=== PATIENT | male | born 1950 | race Caucasian/White ===

== ENCOUNTER 2018-12-24 04:15 | Inpatient (IN) | payer MEDICARE ==
[2018-12-24 05:01] LABS: INR 1.2 (<1.2); Partial Thromboplastin Time 28.5 sec (22.0-30.0); Prothrombin Time 12.2 sec (9.0-12.0)
[2018-12-24 05:03] LABS: Anisocytosis Slight; Basophils % (A) 0 %; Eosinophils # (A) 0.2 k/uL (0-0.7); Eosinophils % (A) 1 %; HCT 22.3 % (39.0-53.0); Hypochromasia Slight; Lymphocytes # (A) 2.6 k/uL (1.0-4.8); Lymphocytes % (A) 18 %; MCH 30.4 pg (25.0-35.0); MCHC 31.2 g/dL (31.0-37.0); MCV 97.6 fL (80.0-100.0); Macrocytosis Slight; Mean Platelet Volume 7.3; Monocytes % (A) 7 %; Neutrophils # (A) 10.3 k/uL (1.3-7.7); Neutrophils % (A) 72 %; Platelet Count 707 k/uL (150-450); RBC 2.29 m/uL (4.30-5.90); RDW 16.3 % (11.5-15.5); WBC 14.4 k/uL (3.8-10.6)
[2018-12-24 05:04] LABS: Albumin 2.3 g/dL (3.5-5.0); Calcium 8.7 mg/dL (8.4-10.2); Total Bilirubin 0.3 mg/dL (0.2-1.3); Total Protein 6.8 g/dL (6.3-8.2)
[2018-12-24 05:06] LABS: Potassium 7.4 mmol/L (3.5-5.1)
[2018-12-24] MEDS ORDERED: CALCIUM GLUCONATE 1 GM in SODIUM CHLORIDE 0.9% 100 ML IVPB ONE (05:17)
[2018-12-24] MEDS ORDERED: SODIUM BICARB 8.4% 50 ML SYR (1 MEQ/ML) IV STA (05:17)
[2018-12-24] MEDS ORDERED: INSULIN REGULAR 100 UNIT/ML VIAL IV STA (05:17)
[2018-12-24] MEDS ORDERED: DEXTROSE 50% SYRINGE 50 ML IVP STA (05:17)
--- NOTE | 2018-12-24 05:17 | ED ---
Weakness HPI - General Chief complaint: Shortness of Breath Stated complaint: SOB Time Seen by Provider: 12/24/18 04:22 Source: patient Mode of arrival: EMS Limitations: altered mental status - History of Present Illness Initial comments: This patient is 68-year-old man who is transferred here from rehab facility. The patient states that he is here because he is feeling more rundown, having increase in generalized weakness. He is not able to characterize his symptoms well. He is denying pain anywhere. Patient states also that he feels like his breathing is not 100% normal. At the [facility] [place] the patient is found to have anemia with a hemoglobin 6.3 and therefore transferred here. MD Complaint: generalized weakness -: unknown Location: generalized Consistency: constant Improves with: none Worsens with: none - Related Data Allergies Allergy/AdvReac Type Severity Reaction Status Date / Time No Known Allergies Allergy Verified 12/24/18 08:05 Review of Systems ROS Statement: Those systems with pertinent positive or pertinent negative responses have been documented in the HPI. ROS Other: All systems not noted in ROS Statement are negative. Limitations: ROS unobtainable due to patients medical condition Respiratory: Reports: dyspnea. Denies: cough, wheezes Cardiovascular: Denies: chest pain, palpitations, syncope Gastrointestinal: Denies: abdominal pain, vomiting, diarrhea Musculoskeletal: Denies: back pain Neurological: Reports: weakness. Denies: headache Past Medical History Past Medical History: Atrial Fibrillation, Heart Failure, Hyperlipidemia, Hypertension, Renal Disease, Syncope Additional Past Medical History / Comment(s): anemia, UTI, Hypothyroid, depression, dysphagia History of Any Multi-Drug Resistant Organisms: None Reported Additional Past Surgical History / Comment(s): unknown Past Psychological History: No Psychological Hx Reported Smoking Status: Former smoker Past Alcohol Use History: None Reported Past Drug Use History: None Reported General Exam General appearance: alert, in no apparent distress Head exam: Present: atraumatic, normocephalic Eye exam: Present: normal appearance. Absent: scleral icterus, conjunctival injection Respiratory exam: Present: normal lung sounds bilaterally. Absent: respiratory distress, wheezes, rales, rhonchi, stridor, accessory muscle use Cardiovascular Exam: Present: regular rate, normal rhythm, normal heart sounds. Absent: systolic murmur, diastolic murmur, rubs, gallop GI/Abdominal exam: Present: soft. Absent: distended, tenderness, guarding, rebound Extremities exam: Present: normal capillary refill, pedal edema (he does have mild increase in left leg edema versus right). Absent: calf tenderness Neurological exam: Present: alert Skin exam: Present: warm, dry, intact, normal color. Absent: rash Course Vital Signs 12/24/18 12/24/18 12/24/18 04:20 04:27 04:30 Temperature 98.1 F 98.8 F Pulse Rate 78 105 H Respiratory 20 20 Rate Blood Pressure 138/85 138/85 O2 Sat by Pulse 100 89 L Oximetry 12/24/18 12/24/18 12/24/18 05:00 06:00 06:10 Temperature 98.0 F Pulse Rate 78 111 H 82 Respiratory 18 17 18 Rate Blood Pressure 138/85 151/69 145/80 O2 Sat by Pulse 100 98 100 Oximetry 12/24/18 12/24/18 12/24/18 06:20 07:00 07:30 Temperature Pulse Rate 81 72 72 Respiratory 17 14 11 L Rate Blood Pressure 129/66 146/61 133/68 O2 Sat by Pulse 100 98 98 Oximetry 12/24/18 08:00 Temperature Pulse Rate 60 Respiratory 15 Rate Blood Pressure 115/61 O2 Sat by Pulse 97 Oximetry EKG Findings - EKG Results: EKG: interpreted by ERMD, sinus rhythm (Rate 87 bpm), normal axis, normal QRS - Blocks, [place], Hypertrophy, ST Abn: Repolarization changes or abnormalities: nonspecific abnormality, ST segment, and/or T wave Medical Decision Making - Medical Decision Making Patient's 68-year-old man sent here from rehab facility as he was feeling worsening generalized weakness and also having dyspnea. Generalized weakness appears to be related to hyperkalemia, which is started on the hyperkalemia cocktail, and patient will have nephrology consultation. Dyspnea appears multifactorial probably with element of CHF/mild pulmonary edema and also anemia. Patient will be transfused. In addition to the nephrology consultation patient will have hematology consultation. Unfortunately no old labs related to kidney function or baseline BNP for comparison. Case D/W admitting physician by Dr. Block. - Lab Data Result diagrams: 12/24/18 04:35 12/24/18 04:35 Lab Results 12/24/18 12/24/18 12/24/18 Range/Units 04:35 04:35 04:35 WBC 14.4 H (3.8-10.6) k/uL RBC 2.29 L (4.30-5.90) m/uL Hgb 7.0 L (13.0-17.5) gm/dL Hct 22.3 L (39.0-53.0) % MCV 97.6 (80.0-100.0) fL MCH 30.4 (25.0-35.0) pg MCHC 31.2 (31.0-37.0) g/dL RDW 16.3 H (11.5-15.5) % Plt Count 707 H (150-450) k/uL Neutrophils % 72 % Lymphocytes % 18 % Monocytes % 7 % Eosinophils % 1 % Basophils % 0 % Neutrophils # 10.3 H (1.3-7.7) k/uL Lymphocytes # 2.6 (1.0-4.8) k/uL Monocytes # 1.0 (0-1.0) k/uL Eosinophils # 0.2 (0-0.7) k/uL Basophils # 0.0 (0-0.2) k/uL Hypochromasia Slight Anisocytosis Slight Macrocytosis Slight PT (9.0-12.0) sec INR (<1.2) APTT (22.0-30.0) sec Sodium 137 (137-145) mmol/L Potassium 7.4 H* (3.5-5.1) mmol/L Chloride 109 H (98-107) mmol/L Carbon Dioxide 21 L (22-30) mmol/L Anion Gap 7 mmol/L BUN 46 H (9-20) mg/dL Creatinine 3.05 H (0.66-1.25) mg/dL Est GFR (CKD-EPI)AfAm 23 (>60 ml/min/1.73 sqM) Est GFR (CKD-EPI)NonAf 20 (>60 ml/min/1.73 sqM) Glucose 89 (74-99) mg/dL Calcium 8.7 (8.4-10.2) mg/dL Total Bilirubin 0.3 (0.2-1.3) mg/dL AST 47 (17-59) U/L ALT 29 (21-72) U/L Alkaline Phosphatase 121 (38-126) U/L Troponin I (0.000-0.034) ng/mL NT-Pro-B Natriuret Pep 13078 pg/mL Total Protein 6.8 (6.3-8.2) g/dL Albumin 2.3 L (3.5-5.0) g/dL Blood Type Blood Type Confirm Blood Type Recheck Antibody Screen Crossmatch Spec Expiration Date 12/24/18 12/24/18 12/24/18 Range/Units 04:35 04:35 04:35 WBC (3.8-10.6) k/uL RBC (4.30-5.90) m/uL Hgb (13.0-17.5) gm/dL Hct (39.0-53.0) % MCV (80.0-100.0) fL MCH (25.0-35.0) pg MCHC (31.0-37.0) g/dL RDW (11.5-15.5) % Plt Count (150-450) k/uL Neutrophils % % Lymphocytes % % Monocytes % % Eosinophils % % Basophils % % Neutrophils # (1.3-7.7) k/uL Lymphocytes # (1.0-4.8) k/uL Monocytes # (0-1.0) k/uL Eosinophils # (0-0.7) k/uL Basophils # (0-0.2) k/uL Hypochromasia Anisocytosis Macrocytosis PT 12.2 H (9.0-12.0) sec INR 1.2 H (<1.2) APTT 28.5 (22.0-30.0) sec Sodium (137-145) mmol/L Potassium (3.5-5.1) mmol/L Chloride (98-107) mmol/L Carbon Dioxide (22-30) mmol/L Anion Gap mmol/L BUN (9-20) mg/dL Creatinine (0.66-1.25) mg/dL Est GFR (CKD-EPI)AfAm (>60 ml/min/1.73 sqM) Est GFR (CKD-EPI)NonAf (>60 ml/min/1.73 sqM) Glucose (74-99) mg/dL Calcium (8.4-10.2) mg/dL Total Bilirubin (0.2-1.3) mg/dL AST (17-59) U/L ALT (21-72) U/L Alkaline Phosphatase (38-126) U/L Troponin I <0.012 (0.000-0.034) ng/mL NT-Pro-B Natriuret Pep pg/mL Total Protein (6.3-8.2) g/dL Albumin (3.5-5.0) g/dL Blood Type A Positive Blood Type Confirm Blood Type Recheck CABO Indicated Antibody Screen NEGATIVE Crossmatch See Detail Spec Expiration Date 12/27/2018 - 233412/24/18 Range/Units 05:32 WBC (3.8-10.6) k/uL RBC (4.30-5.90) m/uL Hgb (13.0-17.5) gm/dL Hct (39.0-53.0) % MCV (80.0-100.0) fL MCH (25.0-35.0) pg MCHC (31.0-37.0) g/dL RDW (11.5-15.5) % Plt Count (150-450) k/uL Neutrophils % % Lymphocytes % % Monocytes % % Eosinophils % % Basophils % % Neutrophils # (1.3-7.7) k/uL Lymphocytes # (1.0-4.8) k/uL Monocytes # (0-1.0) k/uL Eosinophils # (0-0.7) k/uL Basophils # (0-0.2) k/uL Hypochromasia Anisocytosis Macrocytosis PT (9.0-12.0) sec INR (<1.2) APTT (22.0-30.0) sec Sodium (137-145) mmol/L Potassium (3.5-5.1) mmol/L Chloride (98-107) mmol/L Carbon Dioxide (22-30) mmol/L Anion Gap mmol/L BUN (9-20) mg/dL Creatinine (0.66-1.25) mg/dL Est GFR (CKD-EPI)AfAm (>60 ml/min/1.73 sqM) Est GFR (CKD-EPI)NonAf (>60 ml/min/1.73 sqM) Glucose (74-99) mg/dL Calcium (8.4-10.2) mg/dL Total Bilirubin (0.2-1.3) mg/dL AST (17-59) U/L ALT (21-72) U/L Alkaline Phosphatase (38-126) U/L Troponin I (0.000-0.034) ng/mL NT-Pro-B Natriuret Pep pg/mL Total Protein (6.3-8.2) g/dL Albumin (3.5-5.0) g/dL Blood Type Blood Type Confirm A Positive Blood Type Recheck Antibody Screen Crossmatch Spec Expiration Date Disposition Clinical Impression: Dyspnea, CHF exacerbation, Anemia, Acute kidney injury, Hyperkalemia Disposition: ADMITTED IP TO THIS HOSP Condition: Poor
--- NOTE | 2018-12-24 05:55 | XR ---
EXAM: XR Chest, 2 Views CLINICAL HISTORY: ITS.REASON XR Reason: difficulty breathing TECHNIQUE: Frontal and lateral views of the chest. COMPARISON: No relevant prior studies available. FINDINGS: See Impression. IMPRESSION: Bilateral pleural effusions. Adjacent passive atelectasis. Interstitial pulmonary edema is suspected bilaterally. Ectatic and tortuous thoracic aortic arch. No georgie cardiomegaly. No definite hilar enlargement. Trachea is normal. No pneumothorax or other significant abnormalities.
[2018-12-24] MEDS ORDERED: NALOXONE 0.4 MG/ML 1 ML VIAL IV PRN (07:46)
[2018-12-24 08:56] LABS: Glucose,Whole Blood 60 mg/dL (75-99)
[2018-12-24 09:15] LABS: Glucose,Whole Blood 66 mg/dL (75-99)
[2018-12-24 10:08] LABS: Glucose,Whole Blood 84 mg/dL (75-99)
--- NOTE | 2018-12-24 10:57 | P.NPCON ---
History of Present Illness - Reason for Consult acute renal failure, hyperkalemia - Chief Complaint Weakness - History of Present Illness 68-year-old gentleman transferred from rehab facility from [facility] with weakness. Hemoglobin on presentation was 7.0. Nephrology was consulted for hyperkalemia with a potassium of 7.4 and creatinine of 3.0. No previous labs to compare. He denies history of kidney disease. [facility] and [facility] No history of nausea vomiting diarrhea. no recent contrast studies. no documented episodes of hypotension. EKG in the ER no hyperkalemic changes. He was given a cocktail for hyperkalemia and admitted to ICU. Repeat potassium is 6.7. Bladder scan 125 ML's. BMP of 22,000. Review of Systems Constitutional: Reports as per HPI Past Medical History Past Medical History: Atrial Fibrillation, Heart Failure, Hyperlipidemia, Hypertension, Renal Disease, Syncope Additional Past Medical History / Comment(s): anemia, UTI, Hypothyroid, depression, dysphagia History of Any Multi-Drug Resistant Organisms: None Reported Additional Past Surgical History / Comment(s): unknown Past Psychological History: No Psychological Hx Reported Smoking Status: Former smoker Past Alcohol Use History: None Reported Past Drug Use History: None Reported Medications and Allergies Home Medications Medication Instructions Recorded Confirmed Type ARIPiprazole [Abilify] 10 mg PO DAILY 12/24/18 12/24/18 History Acetaminophen Tab [Tylenol Tab] 650 mg PO Q6H PRN 12/24/18 12/24/18 History Aspirin [Barre Aspirin EC] 81 mg PO HS 12/24/18 12/24/18 History Atorvastatin [Lipitor] 10 mg PO HS@199912/24/18 12/24/18 History Cyanocobalamin [Vitamin B-12] 500 mcg PO HS 12/24/18 12/24/18 History Divalproex ER [Depakote ER] 500 mg PO BID 12/24/18 12/24/18 History Folic Acid 1 mg PO HS 12/24/18 12/24/18 History Furosemide [Lasix] 20 mg PO DAILY 12/24/18 12/24/18 History Levothyroxine Sodium [Synthroid] 50 mcg PO DAILY 12/24/18 12/24/18 History Ondansetron HCl [Zofran] 4 mg PO Q6H PRN 12/24/18 12/24/18 History Potassium Chloride ER [K-Dur 20] 40 meq PO BID 12/24/18 12/24/18 History Tamsulosin HCl [Flomax] 0.4 mg PO HS 12/24/18 12/24/18 History Allergies Allergy/AdvReac Type Severity Reaction Status Date / Time No Known Allergies Allergy Verified 12/24/18 08:05 Physical Exam Vitals: Vital Signs Temp Pulse Resp BP Pulse Ox 12/24/18 10:33 98.3 F 77 16 146/77 97 12/24/18 10:23 98.5 F 60 16 147/57 97 12/24/18 08:00 60 15 115/61 97 12/24/18 07:30 72 11 L 133/68 98 12/24/18 07:00 72 14 146/61 98 12/24/18 06:20 81 17 129/66 100 12/24/18 06:10 82 18 145/80 100 12/24/18 06:00 98.0 F 111 H 17 151/69 98 12/24/18 05:00 78 18 138/85 100 12/24/18 04:30 105 H 20 138/85 89 L 12/24/18 04:27 98.8 F 12/24/18 04:20 98.1 F 78 20 138/85 100 Intake and Output 12/23/18 12/24/18 12/24/18 22:59 06:59 14:59 Intake Total 0 Balance 0 Intake: Blood Product 0 Rc As-1 Unit 0 [id number] Other: Weight 80.286 kg No acute distress S1-S2 heard Decreased breath sounds in the bases Edema Results - Lab Results Most recent lab results Calcium 8.7 mg/dL (8.4-10.2) 12/24/18 04:35 12/24/18 04:35 12/24/18 09:37 Assessment and Plan Assessment: #1 acute kidney injury secondary to type I cardiorenal syndrome. Rule out obstructive process. #2 hyperkalemia secondary to acute kidney injury and potassium supplements. #3 edema secondary to decompensated heart failure. #4 anemia ? Cause. Rule out hemolysis. #5 metabolic acidosis secondary to acute kidney injury. Plan: #1 add Lasix 60 mg IV every 8. Strict ins and outs. #2 [place] catheter for urine output. #3 repeat BMP every 6 hours #4 renal diet with low potassium #5 ultrasound kidneys to rule out obstruction, urine analysis. #6 if potassium persistently high will need dialysis. No acute indications at this time we'll try to treat medically. Thank you very much for this consultation we'll follow along while he is in the hospital.
[2018-12-24] MEDS: FUROSEMIDE 10 MG/ML 10 ML VIAL IV SCH ×3 (11:27→22:33)
[2018-12-24] MEDS: DIVALPROEX ER 500 MG TAB.ER.24H PO SCH ×2 (11:27→20:35)
[2018-12-24] MEDS: SODIUM CHLORIDE 0.9% 1,000 ML IV SCH (11:27)
[2018-12-24 11:54] LABS: Appearance,Urine Clear (Clear); Bacteria,Urine Moderate /hpf; Bilirubin,Urine Negative (Negative); Blood,Urine Large (Negative); Color,Urine Yellow; Glucose,Urine (UA) Trace (Negative); Hyaline Casts,Urine 4 /lpf (0-2); Ketones,Urine Negative (Negative); Leukocyte Esterase,Urine Small (Negative); Nitrite,Urine Negative (Negative); Protein,Urine 1+ (Negative); RBC,Urine >182 /hpf (0-5); Urobilinogen,Urine <2.0 mg/dL (<2.0); WBC,Urine 28 /hpf (0-5)
[2018-12-24 12:08] LABS: Glucose,Whole Blood 112 mg/dL (75-99)
--- NOTE | 2018-12-24 13:38 | P.HPIM ---
History of Present Illness This is a pleasant 68 years old male with past medical history of congestive heart failure, atrial fibrillation, hypertension, hyperlipidemia, syncope, hypothyroidism, dysphagia. Patient is never been in this hospital before and there is no records or previous labs for him. He was sent from his ECF for generalized weakness. Patient himself said he is poor historian, his fully awake and oriented but he has memory difficulty which could be part of his dementia or metabolic encephalopathy. Patient denies chest pain however he reports some breathing difficulty although he does not use his accessory muscles. He denies abdominal pain or tenderness. No nausea vomiting. He had regular bowel movements. He denies urinary complaints and he cannot remember if he has kidney disease. He has difficulty moving his right upper extremity and his right shoulder looks painful and swollen. Patient states that he was in ECF for 3 weeks, he could not remember why he was in the hospital before that but he states that he had stroke with right-sided weakness In the emergency room patient was found to have creatinine of 3.0 with no previous records to compare. Potassium 7.0, Came down with therapy to 6.7. Hemoglobin of 7 In the emergency room he got insulin 10 units with D50 and insulin 10 U x I, sodium bicarb and calcium gluconate 1 g, also patient got 1 unit of blood transfusion as emergency however when he was awake he gave permission to give a blood transfusion. Risks benefits and alternatives are explained to the patient and he agrees. Vitals shows mild bradycardia in mid 50s. Rest of vitals are stable. Patient has leukocytosis of 14.4, hemoglobin of 7.0, platelets 707. Potassium elevated 7 and 6.7. Sugar is controlled, proBNP is elevated at 23,000, liver enzymes not elevated. Troponin is negative. EKG showing normal sinus rhythm at [address]-T abnormalities. QTC 375. Chest x-ray showing bilateral pleural effusions and interstitial pulmonary edema. UA is suspicious for infection. Urine culture is ordered Past Medical History Past Medical History: Atrial Fibrillation, Heart Failure, Hyperlipidemia, Hypertension, Renal Disease, Syncope Additional Past Medical History / Comment(s): anemia, UTI, Hypothyroid, depression, dysphagia History of Any Multi-Drug Resistant Organisms: None Reported Additional Past Surgical History / Comment(s): unknown Past Psychological History: No Psychological Hx Reported Smoking Status: Former smoker Past Alcohol Use History: None Reported Past Drug Use History: None Reported Medications and Allergies Home Medications Medication Instructions Recorded Confirmed Type ARIPiprazole [Abilify] 10 mg PO DAILY 12/24/18 12/24/18 History Acetaminophen Tab [Tylenol Tab] 650 mg PO Q6H PRN 12/24/18 12/24/18 History Aspirin [Saks Aspirin EC] 81 mg PO HS 12/24/18 12/24/18 History Atorvastatin [Lipitor] 10 mg PO HS@199912/24/18 12/24/18 History Cyanocobalamin [Vitamin B-12] 500 mcg PO HS 12/24/18 12/24/18 History Divalproex ER [Depakote ER] 500 mg PO BID 12/24/18 12/24/18 History Folic Acid 1 mg PO HS 12/24/18 12/24/18 History Furosemide [Lasix] 20 mg PO DAILY 12/24/18 12/24/18 History Levothyroxine Sodium [Synthroid] 50 mcg PO DAILY 12/24/18 12/24/18 History Ondansetron HCl [Zofran] 4 mg PO Q6H PRN 12/24/18 12/24/18 History Potassium Chloride ER [K-Dur 20] 40 meq PO BID 12/24/18 12/24/18 History Tamsulosin HCl [Flomax] 0.4 mg PO HS 12/24/18 12/24/18 History Allergies Allergy/AdvReac Type Severity Reaction Status Date / Time No Known Allergies Allergy Verified 12/24/18 08:05 Physical Exam Vitals: Vital Signs Temp Pulse Resp BP Pulse Ox 12/24/18 11:03 98.3 F 53 L 15 132/72 99 12/24/18 11:00 57 L 16 146/77 99 12/24/18 10:33 98.3 F 77 16 146/77 97 12/24/18 10:30 63 19 147/76 98 12/24/18 10:23 98.5 F 60 16 147/57 97 12/24/18 10:00 75 18 103/88 98 12/24/18 09:30 71 14 103/88 98 12/24/18 09:00 98.1 F 80 17 148/82 98 12/24/18 08:00 60 15 115/61 97 12/24/18 07:30 72 11 L 133/68 98 12/24/18 07:00 72 14 146/61 98 12/24/18 06:20 81 17 129/66 100 12/24/18 06:10 82 18 145/80 100 12/24/18 06:00 98.0 F 111 H 17 151/69 98 12/24/18 05:00 78 18 138/85 100 12/24/18 04:30 105 H 20 138/85 89 L 12/24/18 04: 98.8 F 12/24/18 04:20 98.1 F 78 20 138/85 100 Intake and Output 12/23/18 12/24/18 12/24/18 22:59 06:59 14:59 Intake Total 0 Balance 0 Intake: Blood Product 0 Rc As-1 Unit 0 [id number] Other: Weight 80.286 kg -GENERAL: The patient is alert and oriented x3, not in any acute distress. pale HEENT: Pupils are round and equally reacting to light. EOMI. No scleral icterus. No conjunctival pallor. Normocephalic, atraumatic. No pharyngeal erythema. No thyromegaly. CARDIOVASCULAR: S1 and S2 present. No murmurs, rubs, or gallops. -PULMONARY: Bilateral equal air entry. Bilateral crepitation and scattered wheezing.. ABDOMEN: Soft, nontender, nondistended, normoactive bowel sounds. No palpable organomegaly. MUSCULOSKELETAL: No joint swelling or deformity. -EXTREMITIES: No cyanosis, clubbing,. Bilateral leg edema. He has limitation movement of his right upper extremities, compared to the left side. However he feels generally weak Right shoulder is painful and swollen and warm NEUROLOGICAL: Gross neurological examination did not reveal any focal deficits. He has generalized weakness. His right upper extremity movement is limited by his shoulder problem. Both legs are weak but they look symmetrical. Cranial nerves are grossly intact. Sensation is intact. Meningeal signs are absent SKIN: No rashes. Results CBC & Chem 7: 12/24/18 04:35 12/24/18 09:37 Labs: Abnormal Lab Results - Last 24 Hours (Table) 12/24/18 12/24/18 12/24/18 Range/Units 04:35 04:35 04:35 WBC 14.4 H (3.8-10.6) k/uL RBC 2.29 L (4.30-5.90) m/uL Hgb 7.0 L (13.0-17.5) gm/dL Hct 22.3 L (39.0-53.0) % RDW 16.3 H (11.5-15.5) % Plt Count 707 H (150-450) k/uL Neutrophils # 10.3 H (1.3-7.7) k/uL PT 12.2 H (9.0-12.0) sec INR 1.2 H (<1.2) Potassium 7.4 H* (3.5-5.1) mmol/L Chloride 109 H (98-107) mmol/L Carbon Dioxide 21 L (22-30) mmol/L BUN 46 H (9-20) mg/dL Creatinine 3.05 H (0.66-1.25) mg/dL POC Glucose (mg/dL) (75-99) mg/dL Albumin 2.3 L (3.5-5.0) g/dL Crossmatch 12/24/18 12/24/18 12/24/18 Range/Units 04:35 08:54 09:13 WBC (3.8-10.6) k/uL RBC (4.30-5.90) m/uL Hgb (13.0-17.5) gm/dL Hct (39.0-53.0) % RDW (11.5-15.5) % Plt Count (150-450) k/uL Neutrophils # (1.3-7.7) k/uL PT (9.0-12.0) sec INR (<1.2) Potassium (3.5-5.1) mmol/L Chloride (98-107) mmol/L Carbon Dioxide (22-30) mmol/L BUN (9-20) mg/dL Creatinine (0.66-1.25) mg/dL POC Glucose (mg/dL) 60 L 66 L (75-99) mg/dL Albumin (3.5-5.0) g/dL Crossmatch See Detail 12/24/18 Range/Units 09:37 WBC (3.8-10.6) k/uL RBC (4.30-5.90) m/uL Hgb (13.0-17.5) gm/dL Hct (39.0-53.0) % RDW (11.5-15.5) % Plt Count (150-450) k/uL Neutrophils # (1.3-7.7) k/uL PT (9.0-12.0) sec INR (<1.2) Potassium 6.7 H* (3.5-5.1) mmol/L Chloride (98-107) mmol/L Carbon Dioxide (22-30) mmol/L BUN (9-20) mg/dL Creatinine (0.66-1.25) mg/dL POC Glucose (mg/dL) (75-99) mg/dL Albumin (3.5-5.0) g/dL Crossmatch Assessment and Plan Assessment: Acute kidney injury, rule out obstructive lesion per nephrology recommendation. Possible cardiorenal syndrome Hyperkalemia Anemia interstitial edema with bilateral pleural effusion. Check echocardiogram for possible cardiac causes Urinary tract infection Bilateral leg swelling Right shoulder pain and swelling, with right upper extremity edema Possible metabolic encephalopathy, given his multiple comorbidities and infection History of stroke with mild right hemiparesis as per patient Plan: This is a pleasant 68 years old male who presents with several problems including UTI, hyperkalemia and acute renal failure, and interstitial edema, right shoulder swelling. Patient admitted to the intensive care unit. Patient already is been evaluated by concession worker, logistics officer has been consulted by emergency room team. Patient is currently on Lasix. Call orthopedic consult. Check x-ray of the right shoulder, check Doppler of both lower extremity and right upper extremity. Monitor potassium level and treated accordingly. We will do anemia workup. Check echocardiogram. Follow-up urine culture. Labs and medication were reviewed.. Continue same treatment. Continue with symptomatic treatment. Resume home medication. Monitor lytes and vitals. DVT and GI prophylaxis. Further recommendations of the clinical course of the patient DVT prophylaxis: Subcutaneous heparin GI Prophylaxis: Pepcid PT/OT: Pending Prognosis is guarded
--- NOTE | 2018-12-24 14:07 | US ---
EXAMINATION TYPE: US kidneys/renal and bladder DATE OF EXAM: 12/24/2018 COMPARISON: NONE CLINICAL HISTORY: , 7 views. abnormal labs per nurse. Poor historian. Exam was performed portable EXAM MEASUREMENTS: Right Kidney: 13.4 x 6.0 x 6.8 cm cm Left Kidney: 12.1 x 5.0 x 7.3 cm, estimated Limited exam due to patient unable to move Right Kidney: Medial anechoic lesion seen at hilum - 2.3 x 0.9 x 1.2 cm. Prominent pyramids. Left Kidney: Spleen not seen for comparison. Limited visualization due to overlying bowel gas. Nons hadowing echogenic foci in lower pole = 0.7 cm Bladder: roberts visualized Bilateral Jets not seen In LUQ, anterior to left kidney lesion visualized = 7.5 x 3.3 x 4.8 cm. There is no evidence of hydronephrosis. Anechoic cortical lesion in the right renal pelvis may repres ent an extrarenal pelvis. There is a Roberts catheter within the bladder. Echogenic FOCUS in the lower pole of the left kidney is not well visualized. It does not appear to re present a calculus. Lesion anterior to the kidney is tubular in nature and may represent fluid-filled bowel. IMPRESSION: VERY LIMITED EXAMINATION SHOWING NO EVIDENCE OF HYDRONEPHROSIS.
--- NOTE | 2018-12-24 14:13 | XR ---
EXAMINATION TYPE: XR shoulder complete RT DATE OF EXAM: 12/24/2018 COMPARISON: NONE HISTORY: Shoulder pain TECHNIQUE: 3 views FINDINGS: I see no fracture nor dislocation. Glenohumeral joint is intact. There is osteopenia. IMPRESSION: No acute abnormality of the right shoulder.
[2018-12-24 14:50] LABS: Calcium 8.8 mg/dL (8.4-10.2); Magnesium 1.4 mg/dL (1.6-2.3)
[2018-12-24 14:55] LABS: Potassium 6.9 mmol/L (3.5-5.1)
[2018-12-24 14:59] LABS: Anisocytosis Slight; Basophils # (A) 0.1 k/uL (0-0.2); Basophils % (A) 1 %; Eosinophils # (A) 0.1 k/uL (0-0.7); Eosinophils % (A) 1 %; HCT 26.9 % (39.0-53.0); HGB 8.2 gm/dL (13.0-17.5); Hypochromasia Marked; Lymphocytes # (A) 1.4 k/uL (1.0-4.8); Lymphocytes % (A) 11 %; MCH 30.3 pg (25.0-35.0); MCHC 30.4 g/dL (31.0-37.0); MCV 99.6 fL (80.0-100.0); Macrocytosis Slight; Mean Platelet Volume 7.5; Monocytes # (A) 0.9 k/uL (0-1.0); Monocytes % (A) 7 %; Neutrophils # (A) 10.6 k/uL (1.3-7.7); Neutrophils % (A) 79 %; Platelet Count 624 k/uL (150-450); RDW 17.4 % (11.5-15.5); Reticulocyte % 1.2 % (0.5-2.0); WBC 13.4 k/uL (3.8-10.6)
[2018-12-24] MEDS ORDERED: SODIUM POLYSTYRENE SULFONATE 15 GM/60 ML BOTTLE PO STA (15:04)
--- NOTE | 2018-12-24 15:26 | US ---
EXAMINATION TYPE: US venous doppler duplex LE DATE OF EXAM: 12/24/2018 2:49 PM COMPARISON: NONE CLINICAL HISTORY: Rule out DVT. swelling, poor historian- ICU SIDE PERFORMED: Bilateral TECHNIQUE: The lower extremity deep venous system is examined utilizing real time linear array sonog ashly with graded compression, doppler sonography and color-flow sonography. VESSELS IMAGED: External Iliac Vein (EIV) Common Femoral Vein Deep Femoral Vein Greater Saphenous Vein * Femoral Vein Popliteal Vein Small Saphenous Vein * Proximal Calf Veins (* superficial vessels) Limited visualization due patient position and swelling Right Leg: Negative for DVT Left Leg: Appears Positive for DVT. Internal visible echoes seen in femoral vein with thready flow. IMPRESSION: No evidence of deep venous thrombosis in the right leg. In the left leg there is evidence of chronic deep venous thrombosis in the femoral vein.
[2018-12-24] MEDS ORDERED: HEPARIN SODIUM,PORCINE 5,000 UNIT/ML 1 ML VIAL IV PRN (16:35)
[2018-12-24 16:41] LABS: Glucose,Whole Blood 100 mg/dL (75-99)
[2018-12-24] MEDS ORDERED: HEPARIN SOD,PORK IN 0.45% NACL 25,000 UNIT in 0.45% NACL 1 250ML.BAG IV SCH (16:45)
[2018-12-24] MEDS: ACETAMINOPHEN TAB 325 MG TAB PO PRN (17:25)
[2018-12-24 17:31] LABS: Polychromasia Present
[2018-12-24 17:39] LABS: Calcium 8.8 mg/dL (8.4-10.2)
[2018-12-24 17:42] LABS: Potassium 6.6 mmol/L (3.5-5.1)
[2018-12-24 20:14] LABS: Anisocytosis Slight; Basophils % (A) 0 %; Eosinophils # (A) 0.1 k/uL (0-0.7); Eosinophils % (A) 1 %; HCT 22.9 % (39.0-53.0); Hypochromasia Slight; Lymphocytes # (A) 1.4 k/uL (1.0-4.8); Lymphocytes % (A) 12 %; MCH 29.3 pg (25.0-35.0); MCHC 30.6 g/dL (31.0-37.0); MCV 95.9 fL (80.0-100.0); Macrocytosis Slight; Mean Platelet Volume 7.3; Monocytes # (A) 0.5 k/uL (0-1.0); Monocytes % (A) 5 %; Neutrophils # (A) 9.3 k/uL (1.3-7.7); Neutrophils % (A) 80 %; Platelet Count 571 k/uL (150-450); RBC 2.39 m/uL (4.30-5.90); RDW 17.5 % (11.5-15.5); WBC 11.6 k/uL (3.8-10.6)
[2018-12-24 20:30] LABS: Calcium 8.3 mg/dL (8.4-10.2)
[2018-12-24] MEDS: FERROUS SULFATE 325 MG TAB PO SCH (20:35)
[2018-12-24 20:48] LABS: Glucose,Whole Blood 107 mg/dL (75-99)
[2018-12-24 21:09] LABS: Potassium 6.2 mmol/L (3.5-5.1)
--- NOTE | 2018-12-24 22:24 | P.CONS ---
History of Present Illness - Reason for Consult Consult date: 12/24/18 Anemia Requesting physician: Hao Silva - Chief Complaint Generalized weakness - History of Present Illness Mr. Payan is a very pleasant 68 yo male with multiple comorbidities who is here for generalized weakness at [facility], found to have significant anemia, Hgb 7.0, with Cr 3, K 7.4, BNP 22,000. WBC 14, plt 700, MCV 97. Nephrology on board. K improved to 6.7 with treatment. We were called for his anemia and CBC changes. Pt is a poor historian and no family at bedside. Admits to being weak. Denies any bleeding or other complaints. Review of Systems All systems: negative Constitutional: Reports as per HPI Past Medical History Past Medical History: Atrial Fibrillation, Heart Failure, Hyperlipidemia, Hypertension, Renal Disease, Syncope Additional Past Medical History / Comment(s): anemia, UTI, Hypothyroid, depression, dysphagia History of Any Multi-Drug Resistant Organisms: None Reported Additional Past Surgical History / Comment(s): unknown Past Psychological History: No Psychological Hx Reported Smoking Status: Former smoker Past Alcohol Use History: None Reported Past Drug Use History: None Reported - Past Family History Father History Unknown: Yes Mother History Unknown: Yes Medications and Allergies Home Medications Medication Instructions Recorded Confirmed Type ARIPiprazole [Abilify] 10 mg PO DAILY 12/24/18 12/24/18 History Acetaminophen Tab [Tylenol Tab] 650 mg PO Q6H PRN 12/24/18 12/24/18 History Aspirin [[place] Aspirin EC] 81 mg PO 12/24/18 12/24/18 History Atorvastatin [Lipitor] 10 mg PO [id number]/18 12/24/18 History Cyanocobalamin [Vitamin B-12] 500 mcg PO 12/24/18 12/24/18 History Divalproex ER [Depakote ER] 500 mg PO BID 12/24/18 12/24/18 History Folic Acid 1 mg PO 12/24/18 12/24/18 History Furosemide [Lasix] 20 mg PO DAILY 12/24/18 12/24/18 History Levothyroxine Sodium [Synthroid] 50 mcg PO DAILY 12/24/18 12/24/18 History Ondansetron HCl [Zofran] 4 mg PO Q6H PRN 12/24/18 12/24/18 History Potassium Chloride ER [K-Dur 20] 40 meq PO BID 12/24/18 12/24/18 History Tamsulosin HCl [Flomax] 0.4 mg PO HS 12/24/18 12/24/18 History Allergies Allergy/AdvReac Type Severity Reaction Status Date / Time No Known Allergies Allergy Verified 12/24/18 08:05 Physical Exam Vitals: Vital Signs Temp Pulse Resp BP Pulse Ox 12/24/18 13:02 97.6 F 52 L 17 142/66 98 12/24/18 13:00 97.6 F 52 L 12 159/76 98 12/24/18 12:30 51 L 12 100/89 98 12/24/18 12:00 85 20 138/77 95 12/24/18 11:30 61 17 132/72 99 12/24/18 11:03 98.3 F 53 L 15 132/72 99 12/24/18 11:00 57 L 16 146/77 99 12/24/18 10:33 98.3 F 77 16 146/77 97 12/24/18 10:30 63 19 147/76 98 12/24/18 10:23 98.5 F 60 16 147/57 97 12/24/18 10:00 75 18 103/88 98 12/24/18 09:30 71 14 103/88 98 12/24/18 09:00 98.1 F 80 17 148/82 98 12/24/18 08:00 60 15 115/61 97 12/24/18 07:30 72 11 L 133/68 98 12/24/18 07:00 72 14 146/61 98 12/24/18 06:20 81 17 129/66 100 12/24/18 06:10 82 18 145/80 100 12/24/18 06:00 98.0 F 111 H 17 151/69 98 12/24/18 05:00 78 18 138/85 100 12/24/18 04:30 105 H 20 138/85 89 L 12/24/18 04:27 98.8 F 12/24/18 04:20 98.1 F 78 20 138/85 100 Intake and Output 12/23/18 12/24/18 12/24/18 22:59 06:59 14:59 Intake Total 860 Output Total 825 Balance 35 Intake: Oral 240 Blood Product 620 Rc As-1 Unit 310 [id number] Output: Urine 825 Other: Weight 80.286 kg General: In no acute distress. HEENT: Conjunctival pallor. No scleral icterus. Mucosa moist. Neck: Neck supple. Lymph: No cervical/supraclavicular LAD. Lungs: Normal respirations. Heart: RRR. No LE edema. Abdomen: Soft, nontender, nondistended. MSK: 4/4 strength in all 4 extremities. Neuro: Alert. Oriented to person. Knows he's in the hospital however thinks this is [facility]. Thinks it's the year 1999. Skin: No jaundice or rash. Psych: Appropriate affect. Results CBC & Chem 7: 12/24/18 20:04 12/24/18 20:04 Labs: Abnormal Lab Results - Last 24 Hours (Table) 12/24/18 12/24/18 12/24/18 Range/Units 04:35 04:35 04:35 WBC 14.4 H (3.8-10.6) k/uL RBC 2.29 L (4.30-5.90) m/uL Hgb 7.0 L (13.0-17.5) gm/dL Hct 22.3 L (39.0-53.0) % RDW 16.3 H (11.5-15.5) % Plt Count 707 H (150-450) k/uL Neutrophils # 10.3 H (1.3-7.7) k/uL PT 12.2 H (9.0-12.0) sec INR 1.2 H (<1.2) Potassium 7.4 H* (3.5-5.1) mmol/L Chloride 109 H (98-107) mmol/L Carbon Dioxide 21 L (22-30) mmol/L BUN 46 H (9-20) mg/dL Creatinine 3.05 H (0.66-1.25) mg/dL POC Glucose (mg/dL) (75-99) mg/dL Albumin 2.3 L (3.5-5.0) g/dL Urine Protein (Negative) Urine Glucose (UA) (Negative) Urine Blood (Negative) Ur Leukocyte Esterase (Negative) Urine RBC (0-5) /hpf Urine WBC (0-5) /hpf Urine WBC Clumps (None) /hpf Urine Bacteria (None) /hpf Hyaline Casts (0-2) /lpf Crossmatch 12/24/18 12/24/18 12/24/18 Range/Units 04:35 08:54 09:13 WBC (3.8-10.6) k/uL RBC (4.30-5.90) m/uL Hgb (13.0-17.5) gm/dL Hct (39.0-53.0) % RDW (11.5-15.5) % Plt Count (150-450) k/uL Neutrophils # (1.3-7.7) k/uL PT (9.0-12.0) sec INR (<1.2) Potassium (3.5-5.1) mmol/L Chloride (98-107) mmol/L Carbon Dioxide (22-30) mmol/L BUN (9-20) mg/dL Creatinine (0.66-1.25) mg/dL POC Glucose (mg/dL) 60 L 66 L (75-99) mg/dL Albumin (3.5-5.0) g/dL Urine Protein (Negative) Urine Glucose (UA) (Negative) Urine Blood (Negative) Ur Leukocyte Esterase (Negative) Urine RBC (0-5) /hpf Urine WBC (0-5) /hpf Urine WBC Clumps (None) /hpf Urine Bacteria (None) /hpf Hyaline Casts (0-2) /lpf Crossmatch See Detail 12/24/18 12/24/18 12/24/18 Range/Units 09:37 11:20 12:06 WBC (3.8-10.6) k/uL RBC (4.30-5.90) m/uL Hgb (13.0-17.5) gm/dL Hct (39.0-53.0) % RDW (11.5-15.5) % Plt Count (150-450) k/uL Neutrophils # (1.3-7.7) k/uL PT (9.0-12.0) sec INR (<1.2) Potassium 6.7 H* (3.5-5.1) mmol/L Chloride (98-107) mmol/L Carbon Dioxide (22-30) mmol/L BUN (9-20) mg/dL Creatinine (0.66-1.25) mg/dL POC Glucose (mg/dL) 112 H (75-99) mg/dL Albumin (3.5-5.0) g/dL Urine Protein 1+ H (Negative) Urine Glucose (UA) Trace H (Negative) Urine Blood Large H (Negative) Ur Leukocyte Esterase Small H (Negative) Urine RBC >182 H (0-5) /hpf Urine WBC 28 H (0-5) /hpf Urine WBC Clumps Occasional H (None) /hpf Urine Bacteria Moderate H (None) /hpf Hyaline Casts 4 H (0-2) /lpf Crossmatch Chest x-ray: report reviewed US - abdomen: pending Assessment and Plan Assessment: 1. Normocytic anemia 2. Leukocytosis and thrombocytosis 3. SIMRAN 4. Hyperkalemia 5. CHF with acute exacerbation Plan: Mr. Payan is a very pleasant 68 yo male with multiple comorbidities as listed above in history who is here from [facility] for increased generalized fatigue and weakness, found to be anemia, hyperkalemic, with SIMRNA and BNP 22,000. No obvious signs of bleeding. Will need to complete anemia work up including vitamin deficiencies, hemolysis, SPEP/FLC, viral studies, TSH, and WAYLON. If Hgb remains low without obvious etiology, may need BMB. His leukocytosis and thrombocytosis could be reactive or due to underlying BM process. Defer to primary team and nephrology regarding his heart failure exacerbation and SIMRAN/electrolyte abnormality.
[2018-12-25 03:18] LABS: Anisocytosis Slight; HCT 27.4 % (39.0-53.0); Hypochromasia Slight; MCH 30.3 pg (25.0-35.0); MCHC 31.5 g/dL (31.0-37.0); MCV 96.2 fL (80.0-100.0); Macrocytosis Slight; Platelet Count 572 k/uL (150-450); RBC 2.85 m/uL (4.30-5.90)
[2018-12-25 03:23] LABS: HGB 8.6 gm/dL (13.0-17.5)
[2018-12-25 05:42] LABS: Anisocytosis Slight; Basophils % (A) 0 %; Eosinophils # (A) 0.1 k/uL (0-0.7); Eosinophils % (A) 1 %; HCT 27.4 % (39.0-53.0); HGB 8.5 gm/dL (13.0-17.5); Hypochromasia Slight; Lymphocytes # (A) 1.5 k/uL (1.0-4.8); Lymphocytes % (A) 12 %; MCH 29.8 pg (25.0-35.0); MCHC 31.2 g/dL (31.0-37.0); MCV 95.7 fL (80.0-100.0); Mean Platelet Volume 7.1; Monocytes # (A) 0.6 k/uL (0-1.0); Monocytes % (A) 5 %; Neutrophils # (A) 9.7 k/uL (1.3-7.7); Neutrophils % (A) 80 %; Platelet Count 600 k/uL (150-450); RBC 2.86 m/uL (4.30-5.90); RDW 16.9 % (11.5-15.5); WBC 12.1 k/uL (3.8-10.6)
[2018-12-25 05:49] LABS: INR 1.2 (<1.2); Prothrombin Time 12.5 sec (9.0-12.0)
[2018-12-25 06:02] LABS: Albumin 2.2 g/dL (3.5-5.0); Calcium 8.6 mg/dL (8.4-10.2); Magnesium 1.3 mg/dL (1.6-2.3); Phosphorus 7.3 mg/dL (2.5-4.5); Potassium 5.7 mmol/L (3.5-5.1); Total Bilirubin 0.4 mg/dL (0.2-1.3); Total Protein 6.5 g/dL (6.3-8.2); Uric Acid 6.7 mg/dL (3.5-8.5)
--- NOTE | 2018-12-25 06:45 | XR ---
EXAMINATION TYPE: XR chest 1V DATE OF EXAM: 12/25/2018 HISTORY: Assess CHF. REFERENCE: Previous study dated 12/24/2018. FINDINGS: There is bibasilar airspace disease. There are bilateral effusions. The heart is mildly enl arged. Pulmonary vasculature has returned to normal. IMPRESSION: 1. BIBASILAR AIRSPACE DISEASE. 2. SMALL, BILATERAL EFFUSIONS.
[2018-12-25 06:50] LABS: Glucose,Whole Blood 69 mg/dL (75-99)
[2018-12-25 07:38] LABS: Glucose,Whole Blood 74 mg/dL (75-99)
--- NOTE | 2018-12-25 08:11 | P.PN ---
Subjective This is a pleasant 68 years old male with past medical history of congestive heart failure, atrial fibrillation, hypertension, hyperlipidemia, syncope, hypothyroidism, dysphagia. Patient is never been in this hospital before and there is no records or previous labs for him. He was sent from his ECF for generalized weakness. Patient himself said he is poor historian, his fully awake and oriented but he has memory difficulty which could be part of his dementia or metabolic encephalopathy. Patient denies chest pain however he reports some breathing difficulty although he does not use his accessory muscles. He denies abdominal pain or tenderness. No nausea vomiting. He had regular bowel movements. He denies urinary complaints and he cannot remember if he has kidney disease. He has difficulty moving his right upper extremity and his right shoulder looks painful and swollen. Patient states that he was in ECF for 3 weeks, he could not remember why he was in the hospital before that but he states that he had stroke with right-sided weakness In the emergency room patient was found to have creatinine of 3.0 with no previous records to compare. Potassium 7.0, Came down with therapy to 6.7. Hemoglobin of 7 In the emergency room he got insulin 10 units with D50 and insulin 10 U x I, sodium bicarb and calcium gluconate 1 g, also patient got 1 unit of blood transfusion as emergency however when he was awake he gave permission to give a blood transfusion. Risks benefits and alternatives are explained to the patient and he agrees. Vitals shows mild bradycardia in mid 50s. Rest of vitals are stable. Patient has leukocytosis of 14.4, hemoglobin of 7.0, platelets 707. Potassium elevated 7 and 6.7. Sugar is controlled, proBNP is elevated at 23,000, liver enzymes not elevated. Troponin is negative. EKG showing normal sinus rhythm at [address]-T abnormalities. QTC 375. Chest x-ray showing bilateral pleural effusions and interstitial pulmonary edema. UA is suspicious for infection. Urine culture is ordered 12/25/2018 Patient remains in the ICU as overflow bed. He is feels a little better. Denied chest pain however he has some dyspnea. His still has right arm swelling and right shoulder swelling. Bilateral leg swelling. Vitals stable but he is bradycardic. He is saturating 95 on room air. He still has [place] catheter with hematuria. His WBC today is 12.1. Hemoglobin 8.5. INR 1.2. Creatinine 3.0 and potassium 5.7. Patient has Doppler of the lower extremity showing left DVT. I discussed the case with vascular surgery yesterday and Dr. Matute. Patient could not tolerate heparin and was stopped. Patient received blood transfusion and his hemoglobin and vitals are stable this morning. Patient is a started on iron pills. Her consult is our following the case CONSTITUTIONAL: No fever. HEENT: No recent visual problems or hearing problems. Denied any sore throat. CARDIOVASCULAR: no syncope. PULMONARY: no hemoptysis. GASTROINTESTINAL: No diarrhea, no nausea, no vomiting, no abdominal pain. Normoactive bowel sounds. NEUROLOGICAL: No headaches, no numbness. HEMATOLOGICAL: Denies any bleeding or petechiae. ENDOCRINE: Denies any polyuria or polydipsia. Medication: Tylenol, ceftriaxone, Depakote, ferrous sulfate, Lasix, Objective - Vital Signs Vital signs: Vital Signs Temp 98.0 F 12/25/18 04:00 Pulse 48 L 12/25/18 04:00 Resp 14 12/25/18 04:00 BP 158/77 12/25/18 04:00 Pulse Ox 95 12/25/18 04:00 Intake & Output 12/24/18 12/25/18 12/25/18 18:59 06:59 18:59 Intake Total 1700 1000 Output Total 1900 1325 Balance -200 -325 Weight 80.286 kg 86.7 kg Intake: IV 120 200 Sodium Chloride 0.9% 1, 120 200 000 ml @ 20 mls/hr IV . Q24H [facility] Rx#:[id number] Oral 960 490 Blood Product 620 310 As-1 Unit 310 [id number] As-1 Unit 310 [id number] Output: Urine 1900 1325 Other: Voiding Method Indwelling Catheter Indwelling Catheter - Exam -GENERAL: The patient is alert and oriented x3, not in any acute distress. pale. Forgetful HEENT: Pupils are round and equally reacting to light. EOMI. No scleral icterus. No conjunctival pallor. Normocephalic, atraumatic. No pharyngeal erythema. No thyromegaly. CARDIOVASCULAR: S1 and S2 present. No murmurs, rubs, or gallops. -PULMONARY: Bilateral equal air entry. Bilateral crepitation and scattered wheezing.. ABDOMEN: Soft, nontender, nondistended, normoactive bowel sounds. No palpable organomegaly. MUSCULOSKELETAL: No joint swelling or deformity. -EXTREMITIES: No cyanosis, clubbing,. Bilateral leg edema. He has limitation movement of his right upper extremities, compared to the left side. However he feels generally weak Right shoulder is painful and swollen and warm NEUROLOGICAL: Gross neurological examination did not reveal any focal deficits. He has generalized weakness. His right upper extremity movement is limited by his shoulder problem. Both legs are weak but they look symmetrical. Cranial nerves are grossly intact. Sensation is intact. Meningeal signs are absent SKIN: No rashes. - Labs CBC & Chem 7: 12/25/18 05:19 12/25/18 05:19 Labs: Abnormal Lab Results - Last 24 Hours (Table) 12/24/18 12/24/18 12/24/18 Range/Units 04:35 08:54 09:13 WBC (3.8-10.6) k/uL RBC (4.30-5.90) m/uL Hgb (13.0-17.5) gm/dL Hct (39.0-53.0) % MCHC (31.0-37.0) g/dL RDW (11.5-15.5) % Plt Count (150-450) k/uL Neutrophils # (1.3-7.7) k/uL PT (9.0-12.0) sec INR (<1.2) APTT (22.0-30.0) sec Sodium (137-145) mmol/L Potassium (3.5-5.1) mmol/L Chloride (98-107) mmol/L Carbon Dioxide (22-30) mmol/L BUN (9-20) mg/dL Creatinine (0.66-1.25) mg/dL POC Glucose (mg/dL) 60 L 66 L (75-99) mg/dL Calcium (8.4-10.2) mg/dL Phosphorus (2.5-4.5) mg/dL Magnesium (1.6-2.3) mg/dL Iron (65-175) ug/dL TIBC (228-460) ug/dL Iron Saturation (15.00-50.00) Ferritin (22.0-322.0) ng/mL Albumin (3.5-5.0) g/dL Vitamin B12 (200.0-944.0) pg/mL TSH (0.465-4.680) mIU/L Urine Protein (Negative) Urine Glucose (UA) (Negative) Urine Blood (Negative) Ur Leukocyte Esterase (Negative) Urine RBC (0-5) /hpf Urine WBC (0-5) /hpf Urine WBC Clumps (None) /hpf Urine Bacteria (None) /hpf Hyaline Casts (0-2) /lpf Crossmatch See Detail 12/24/18 12/24/18 12/24/18 Range/Units 09:37 09:37 11:20 WBC (3.8-10.6) k/uL RBC (4.30-5.90) m/uL Hgb (13.0-17.5) gm/dL Hct (39.0-53.0) % MCHC (31.0-37.0) g/dL RDW (11.5-15.5) % Plt Count (150-450) k/uL Neutrophils # (1.3-7.7) k/uL PT (9.0-12.0) sec INR (<1.2) APTT (22.0-30.0) sec Sodium (137-145) mmol/L Potassium 6.7 H* (3.5-5.1) mmol/L Chloride (98-107) mmol/L Carbon Dioxide (22-30) mmol/L BUN (9-20) mg/dL Creatinine (0.66-1.25) mg/dL POC Glucose (mg/dL) (75-99) mg/dL Calcium (8.4-10.2) mg/dL Phosphorus (2.5-4.5) mg/dL Magnesium (1.6-2.3) mg/dL Iron 21 L (65-175) ug/dL TIBC 175 L (228-460) ug/dL Iron Saturation 12.00 L (15.00-50.00) Ferritin 521.0 H (22.0-322.0) ng/mL Albumin (3.5-5.0) g/dL Vitamin B12 1772.0 H (200.0-944.0) pg/mL TSH (0.465-4.680) mIU/L Urine Protein 1+ H (Negative) Urine Glucose (UA) Trace H (Negative) Urine Blood Large H (Negative) Ur Leukocyte Esterase Small H (Negative) Urine RBC >182 H (0-5) /hpf Urine WBC 28 H (0-5) /hpf Urine WBC Clumps Occasional H (None) /hpf Urine Bacteria Moderate H (None) /hpf Hyaline Casts 4 H (0-2) /lpf Crossmatch 12/24/18 12/24/18 12/24/18 Range/Units 12:06 14:25 14:31 WBC 13.4 H (3.8-10.6) k/uL RBC 2.70 L (4.30-5.90) m/uL Hgb 8.2 L (13.0-17.5) gm/dL Hct 26.9 L (39.0-53.0) % MCHC 30.4 L (31.0-37.0) g/dL RDW 17.4 H (11.5-15.5) % Plt Count 624 H (150-450) k/uL Neutrophils # 10.6 H (1.3-7.7) k/uL PT (9.0-12.0) sec INR (<1.2) APTT (22.0-30.0) sec Sodium (137-145) mmol/L Potassium 6.9 H* (3.5-5.1) mmol/L Chloride 110 H (98-107) mmol/L Carbon Dioxide 20 L (22-30) mmol/L BUN 46 H (9-20) mg/dL Creatinine 2.97 H (0.66-1.25) mg/dL POC Glucose (mg/dL) 112 H (75-99) mg/dL Calcium (8.4-10.2) mg/dL Phosphorus (2.5-4.5) mg/dL Magnesium 1.4 L (1.6-2.3) mg/dL Iron (65-175) ug/dL TIBC (228-460) ug/dL Iron Saturation (15.00-50.00) Ferritin (22.0-322.0) ng/mL Albumin (3.5-5.0) g/dL Vitamin B12 (200.0-944.0) pg/mL TSH (0.465-4.680) mIU/L Urine Protein (Negative) Urine Glucose (UA) (Negative) Urine Blood (Negative) Ur Leukocyte Esterase (Negative) Urine RBC (0-5) /hpf Urine WBC (0-5) /hpf Urine WBC Clumps (None) /hpf Urine Bacteria (None) /hpf Hyaline Casts (0-2) /lpf Crossmatch 12/24/18 12/24/18 12/24/18 Range/Units 16:40 17:08 20:04 WBC (3.8-10.6) k/uL RBC (4.30-5.90) m/uL Hgb (13.0-17.5) gm/dL Hct (39.0-53.0) % MCHC (31.0-37.0) g/dL RDW (11.5-15.5) % Plt Count (150-450) k/uL Neutrophils # (1.3-7.7) k/uL PT (9.0-12.0) sec INR (<1.2) APTT (22.0-30.0) sec Sodium 136 L (137-145) mmol/L Potassium 6.6 H* 6.2 H* (3.5-5.1) mmol/L Chloride 108 H (98-107) mmol/L Carbon Dioxide 21 L (22-30) mmol/L BUN 45 H 49 H (9-20) mg/dL Creatinine 3.04 H 2.96 H (0.66-1.25) mg/dL POC Glucose (mg/dL) 100 H (75-99) mg/dL Calcium 8.3 L (8.4-10.2) mg/dL Phosphorus (2.5-4.5) mg/dL Magnesium (1.6-2.3) mg/dL Iron (65-175) ug/dL TIBC (228-460) ug/dL Iron Saturation (15.00-50.00) Ferritin (22.0-322.0) ng/mL Albumin (3.5-5.0) g/dL Vitamin B12 (200.0-944.0) pg/mL TSH (0.465-4.680) mIU/L Urine Protein (Negative) Urine Glucose (UA) (Negative) Urine Blood (Negative) Ur Leukocyte Esterase (Negative) Urine RBC (0-5) /hpf Urine WBC (0-5) /hpf Urine WBC Clumps (None) /hpf Urine Bacteria (None) /hpf Hyaline Casts (0-2) /lpf Crossmatch 12/24/18 12/24/18 12/25/18 Range/Units 20:04 20:47 02:28 WBC 11.6 H 13.0 H (3.8-10.6) k/uL RBC 2.39 L 2.85 L (4.30-5.90) m/uL Hgb 7.0 L 8.6 L D (13.0-17.5) gm/dL Hct 22.9 L 27.4 L (39.0-53.0) % MCHC 30.6 L (31.0-37.0) g/dL RDW 17.5 H 17.0 H (11.5-15.5) % Plt Count 571 H 572 H (150-450) k/uL Neutrophils # 9.3 H (1.3-7.7) k/uL PT (9.0-12.0) sec INR (<1.2) APTT (22.0-30.0) sec Sodium (137-145) mmol/L Potassium (3.5-5.1) mmol/L Chloride (98-107) mmol/L Carbon Dioxide (22-30) mmol/L BUN (9-20) mg/dL Creatinine (0.66-1.25) mg/dL POC Glucose (mg/dL) 107 H (75-99) mg/dL Calcium (8.4-10.2) mg/dL Phosphorus (2.5-4.5) mg/dL Magnesium (1.6-2.3) mg/dL Iron (65-175) ug/dL TIBC (228-460) ug/dL Iron Saturation (15.00-50.00) Ferritin (22.0-322.0) ng/mL Albumin (3.5-5.0) g/dL Vitamin B12 (200.0-944.0) pg/mL TSH (0.465-4.680) mIU/L Urine Protein (Negative) Urine Glucose (UA) (Negative) Urine Blood (Negative) Ur Leukocyte Esterase (Negative) Urine RBC (0-5) /hpf Urine WBC (0-5) /hpf Urine WBC Clumps (None) /hpf Urine Bacteria (None) /hpf Hyaline Casts (0-2) /lpf Crossmatch 12/25/18 12/25/18 12/25/18 Range/Units 05:19 05:19 05:27 WBC 12.1 H (3.8-10.6) k/uL RBC 2.86 L (4.30-5.90) m/uL Hgb 8.5 L (13.0-17.5) gm/dL Hct 27.4 L (39.0-53.0) % MCHC (31.0-37.0) g/dL RDW 16.9 H (11.5-15.5) % Plt Count 600 H (150-450) k/uL Neutrophils # 9.7 H (1.3-7.7) k/uL PT 12.5 H (9.0-12.0) sec INR 1.2 H (<1.2) APTT 32.0 H (22.0-30.0) sec Sodium (137-145) mmol/L Potassium 5.7 H (3.5-5.1) mmol/L Chloride (98-107) mmol/L Carbon Dioxide (22-30) mmol/L BUN 55 H (9-20) mg/dL Creatinine 3.03 H (0.66-1.25) mg/dL POC Glucose (mg/dL) (75-99) mg/dL Calcium (8.4-10.2) mg/dL Phosphorus 7.3 H (2.5-4.5) mg/dL Magnesium 1.3 L (1.6-2.3) mg/dL Iron (65-175) ug/dL TIBC (228-460) ug/dL Iron Saturation (15.00-50.00) Ferritin (22.0-322.0) ng/mL Albumin 2.2 L (3.5-5.0) g/dL Vitamin B12 (200.0-944.0) pg/mL TSH 6.140 H (0.465-4.680) mIU/L Urine Protein (Negative) Urine Glucose (UA) (Negative) Urine Blood (Negative) Ur Leukocyte Esterase (Negative) Urine RBC (0-5) /hpf Urine WBC (0-5) /hpf Urine WBC Clumps (None) /hpf Urine Bacteria (None) /hpf Hyaline Casts (0-2) /lpf Crossmatch 12/25/18 12/25/18 Range/Units 06:48 07:23 WBC (3.8-10.6) k/uL RBC (4.30-5.90) m/uL Hgb (13.0-17.5) gm/dL Hct (39.0-53.0) % MCHC (31.0-37.0) g/dL RDW (11.5-15.5) % Plt Count (150-450) k/uL Neutrophils # (1.3-7.7) k/uL PT (9.0-12.0) sec INR (<1.2) APTT (22.0-30.0) sec Sodium (137-145) mmol/L Potassium (3.5-5.1) mmol/L Chloride (98-107) mmol/L Carbon Dioxide (22-30) mmol/L BUN (9-20) mg/dL Creatinine (0.66-1.25) mg/dL POC Glucose (mg/dL) 69 L 74 L (75-99) mg/dL Calcium (8.4-10.2) mg/dL Phosphorus (2.5-4.5) mg/dL Magnesium (1.6-2.3) mg/dL Iron (65-175) ug/dL TIBC (228-460) ug/dL Iron Saturation (15.00-50.00) Ferritin (22.0-322.0) ng/mL Albumin (3.5-5.0) g/dL Vitamin B12 (200.0-944.0) pg/mL TSH (0.465-4.680) mIU/L Urine Protein (Negative) Urine Glucose (UA) (Negative) Urine Blood (Negative) Ur Leukocyte Esterase (Negative) Urine RBC (0-5) /hpf Urine WBC (0-5) /hpf Urine WBC Clumps (None) /hpf Urine Bacteria (None) /hpf Hyaline Casts (0-2) /lpf Crossmatch Microbiology - Last 24 Hours (Table) 12/24/18 15:18 Urine Culture - Preliminary Urine,Catheterized Assessment and Plan Assessment: Acute kidney injury, rule out obstructive lesion per nephrology recommendation. Possible cardiorenal syndrome Hyperkalemia, improving Possible acute DVT Anemia. Hemoglobin stable interstitial edema with bilateral pleural effusion. Check echocardiogram for possible cardiac causes Urinary tract infection Bilateral leg swelling Right shoulder pain and swelling, with right upper extremity edema Possible metabolic encephalopathy, given his multiple comorbidities and infection History of stroke with mild right hemiparesis as per patient Plan: This is a pleasant 68 years old male who presents with several problems includ ing UTI, hyperkalemia and acute renal failure, and interstitial edema, right shoulder swelling. Patient admitted to the intensive care unit. Patient already is been evaluated by account strategist, training officer has been consulted by emergency room team. Patient is currently on Lasix. Call orthopedic consult. Check x-ray of the right shoulder, check Doppler of both lower extremity and right upper extremity. Monitor potassium level and treated accordingly. We will do anemia workup. Check echocardiogram. Follow-up urine culture. Labs and medication were reviewed.. Continue same treatment. Continue with symptomatic treatment. Resume home medication. Monitor lytes and vitals. DVT and GI prophylaxis. Further recommendations of the clinical course of the patient DVT prophylaxis: Subcutaneous heparin GI Prophylaxis: Pepcid PT/OT: Pending Prognosis is guarded
--- NOTE | 2018-12-25 08:54 | P.PN ---
Subjective Progress Note Date: 12/25/18 Seen and examined for the follow-up of acute kidney injury. Potassium improving with diuresis. 3 L of urine output in the last 24 hours. Overnight developed hematuria. Heparin drip has been stopped. Objective - Vital Signs Vital signs: Vital Signs Temp 98.0 F 12/25/18 04:00 Pulse 48 L 12/25/18 04:00 Resp 14 12/25/18 04:00 BP 158/77 12/25/18 04:00 Pulse Ox 95 12/25/18 04:00 Intake & Output 12/24/18 12/25/18 12/25/18 18:59 06:59 18:59 Intake Total 1700 1000 Output Total 1900 1325 Balance -200 -325 Weight 80.286 kg 86.7 kg Intake: IV 120 200 Sodium Chloride 0.9% 1, 120 200 000 ml @ 20 mls/hr IV . Q24H [facility] Rx#:[id number] Oral 960 490 Blood Product 620 310 Rc As-1 Unit 310 [id number] Rc As-1 Unit 310 [id number] Output: Urine 1900 1325 Other: Voiding Method Indwelling Catheter Indwelling Catheter - Exam No acute distress S1-S2 heard Diminished breath sounds bases Edema - Labs CBC & Chem 7: 12/25/18 05:19 12/25/18 05:19 Labs: Abnormal Lab Results - Last 24 Hours (Table) 12/24/18 12/24/18 12/24/18 Range/Units 04:35 08:54 09:13 WBC (3.8-10.6) k/uL RBC (4.30-5.90) m/uL Hgb (13.0-17.5) gm/dL Hct (39.0-53.0) % MCHC (31.0-37.0) g/dL RDW (11.5-15.5) % Plt Count (150-450) k/uL Neutrophils # (1.3-7.7) k/uL PT (9.0-12.0) sec INR (<1.2) APTT (22.0-30.0) sec Sodium (137-145) mmol/L Potassium (3.5-5.1) mmol/L Chloride (98-107) mmol/L Carbon Dioxide (22-30) mmol/L BUN (9-20) mg/dL Creatinine (0.66-1.25) mg/dL POC Glucose (mg/dL) 60 L 66 L (75-99) mg/dL Calcium (8.4-10.2) mg/dL Phosphorus (2.5-4.5) mg/dL Magnesium (1.6-2.3) mg/dL Iron (65-175) ug/dL TIBC (228-460) ug/dL Iron Saturation (15.00-50.00) Ferritin (22.0-322.0) ng/mL Albumin (3.5-5.0) g/dL Vitamin B12 (200.0-944.0) pg/mL TSH (0.465-4.680) mIU/L Urine Protein (Negative) Urine Glucose (UA) (Negative) Urine Blood (Negative) Ur Leukocyte Esterase (Negative) Urine RBC (0-5) /hpf Urine WBC (0-5) /hpf Urine WBC Clumps (None) /hpf Urine Bacteria (None) /hpf Hyaline Casts (0-2) /lpf Crossmatch See Detail 12/24/18 12/24/18 12/24/18 Range/Units 09:37 09:37 11:20 WBC (3.8-10.6) k/uL RBC (4.30-5.90) m/uL Hgb (13.0-17.5) gm/dL Hct (39.0-53.0) % MCHC (31.0-37.0) g/dL RDW (11.5-15.5) % Plt Count (150-450) k/uL Neutrophils # (1.3-7.7) k/uL PT (9.0-12.0) sec INR (<1.2) APTT (22.0-30.0) sec Sodium (137-145) mmol/L Potassium 6.7 H* (3.5-5.1) mmol/L Chloride (98-107) mmol/L Carbon Dioxide (22-30) mmol/L BUN (9-20) mg/dL Creatinine (0.66-1.25) mg/dL POC Glucose (mg/dL) (75-99) mg/dL Calcium (8.4-10.2) mg/dL Phosphorus (2.5-4.5) mg/dL Magnesium (1.6-2.3) mg/dL Iron 21 L (65-175) ug/dL TIBC 175 L (228-460) ug/dL Iron Saturation 12.00 L (15.00-50.00) Ferritin 521.0 H (22.0-322.0) ng/mL Albumin (3.5-5.0) g/dL Vitamin B12 1772.0 H (200.0-944.0) pg/mL TSH (0.465-4.680) mIU/L Urine Protein 1+ H (Negative) Urine Glucose (UA) Trace H (Negative) Urine Blood Large H (Negative) Ur Leukocyte Esterase Small H (Negative) Urine RBC >182 H (0-5) /hpf Urine WBC 28 H (0-5) /hpf Urine WBC Clumps Occasional H (None) /hpf Urine Bacteria Moderate H (None) /hpf Hyaline Casts 4 H (0-2) /lpf Crossmatch 12/24/18 12/24/18 12/24/18 Range/Units 12:06 14:25 14:31 WBC 13.4 H (3.8-10.6) k/uL RBC 2.70 L (4.30-5.90) m/uL Hgb 8.2 L (13.0-17.5) gm/dL Hct 26.9 L (39.0-53.0) % MCHC 30.4 L (31.0-37.0) g/dL RDW 17.4 H (11.5-15.5) % Plt Count 624 H (150-450) k/uL Neutrophils # 10.6 H (1.3-7.7) k/uL PT (9.0-12.0) sec INR (<1.2) APTT (22.0-30.0) sec Sodium (137-145) mmol/L Potassium 6.9 H* (3.5-5.1) mmol/L Chloride 110 H (98-107) mmol/L Carbon Dioxide 20 L (22-30) mmol/L BUN 46 H (9-20) mg/dL Creatinine 2.97 H (0.66-1.25) mg/dL POC Glucose (mg/dL) 112 H (75-99) mg/dL Calcium (8.4-10.2) mg/dL Phosphorus (2.5-4.5) mg/dL Magnesium 1.4 L (1.6-2.3) mg/dL Iron (65-175) ug/dL TIBC (228-460) ug/dL Iron Saturation (15.00-50.00) Ferritin (22.0-322.0) ng/mL Albumin (3.5-5.0) g/dL Vitamin B12 (200.0-944.0) pg/mL TSH (0.465-4.680) mIU/L Urine Protein (Negative) Urine Glucose (UA) (Negative) Urine Blood (Negative) Ur Leukocyte Esterase (Negative) Urine RBC (0-5) /hpf Urine WBC (0-5) /hpf Urine WBC Clumps (None) /hpf Urine Bacteria (None) /hpf Hyaline Casts (0-2) /lpf Crossmatch 12/24/18 12/24/18 12/24/18 Range/Units 16:40 17:08 20:04 WBC (3.8-10.6) k/uL RBC (4.30-5.90) m/uL Hgb (13.0-17.5) gm/dL Hct (39.0-53.0) % MCHC (31.0-37.0) g/dL RDW (11.5-15.5) % Plt Count (150-450) k/uL Neutrophils # (1.3-7.7) k/uL PT (9.0-12.0) sec INR (<1.2) APTT (22.0-30.0) sec Sodium 136 L (137-145) mmol/L Potassium 6.6 H* 6.2 H* (3.5-5.1) mmol/L Chloride 108 H (98-107) mmol/L Carbon Dioxide 21 L (22-30) mmol/L BUN 45 H 49 H (9-20) mg/dL Creatinine 3.04 H 2.96 H (0.66-1.25) mg/dL POC Glucose (mg/dL) 100 H (75-99) mg/dL Calcium 8.3 L (8.4-10.2) mg/dL Phosphorus (2.5-4.5) mg/dL Magnesium (1.6-2.3) mg/dL Iron (65-175) ug/dL TIBC (228-460) ug/dL Iron Saturation (15.00-50.00) Ferritin (22.0-322.0) ng/mL Albumin (3.5-5.0) g/dL Vitamin B12 (200.0-944.0) pg/mL TSH (0.465-4.680) mIU/L Urine Protein (Negative) Urine Glucose (UA) (Negative) Urine Blood (Negative) Ur Leukocyte Esterase (Negative) Urine RBC (0-5) /hpf Urine WBC (0-5) /hpf Urine WBC Clumps (None) /hpf Urine Bacteria (None) /hpf Hyaline Casts (0-2) /lpf Crossmatch 12/24/18 12/24/18 12/25/18 Range/Units 20:04 20:47 02:28 WBC 11.6 H 13.0 H (3.8-10.6) k/uL RBC 2.39 L 2.85 L (4.30-5.90) m/uL Hgb 7.0 L 8.6 L D (13.0-17.5) gm/dL Hct 22.9 L 27.4 L (39.0-53.0) % MCHC 30.6 L (31.0-37.0) g/dL RDW 17.5 H 17.0 H (11.5-15.5) % Plt Count 571 H 572 H (150-450) k/uL Neutrophils # 9.3 H (1.3-7.7) k/uL PT (9.0-12.0) sec INR (<1.2) APTT (22.0-30.0) sec Sodium (137-145) mmol/L Potassium (3.5-5.1) mmol/L Chloride (98-107) mmol/L Carbon Dioxide (22-30) mmol/L BUN (9-20) mg/dL Creatinine (0.66-1.25) mg/dL POC Glucose (mg/dL) 107 H (75-99) mg/dL Calcium (8.4-10.2) mg/dL Phosphorus (2.5-4.5) mg/dL Magnesium (1.6-2.3) mg/dL Iron (65-175) ug/dL TIBC (228-460) ug/dL Iron Saturation (15.00-50.00) Ferritin (22.0-322.0) ng/mL Albumin (3.5-5.0) g/dL Vitamin B12 (200.0-944.0) pg/mL TSH (0.465-4.680) mIU/L Urine Protein (Negative) Urine Glucose (UA) (Negative) Urine Blood (Negative) Ur Leukocyte Esterase (Negative) Urine RBC (0-5) /hpf Urine WBC (0-5) /hpf Urine WBC Clumps (None) /hpf Urine Bacteria (None) /hpf Hyaline Casts (0-2) /lpf Crossmatch 12/25/18 12/25/18 12/25/18 Range/Units 05:19 05:19 05:27 WBC 12.1 H (3.8-10.6) k/uL RBC 2.86 L (4.30-5.90) m/uL Hgb 8.5 L (13.0-17.5) gm/dL Hct 27.4 L (39.0-53.0) % MCHC (31.0-37.0) g/dL RDW 16.9 H (11.5-15.5) % Plt Count 600 H (150-450) k/uL Neutrophils # 9.7 H (1.3-7.7) k/uL PT 12.5 H (9.0-12.0) sec INR 1.2 H (<1.2) APTT 32.0 H (22.0-30.0) sec Sodium (137-145) mmol/L Potassium 5.7 H (3.5-5.1) mmol/L Chloride (98-107) mmol/L Carbon Dioxide (22-30) mmol/L BUN 55 H (9-20) mg/dL Creatinine 3.03 H (0.66-1.25) mg/dL POC Glucose (mg/dL) (75-99) mg/dL Calcium (8.4-10.2) mg/dL Phosphorus 7.3 H (2.5-4.5) mg/dL Magnesium 1.3 L (1.6-2.3) mg/dL Iron (65-175) ug/dL TIBC (228-460) ug/dL Iron Saturation (15.00-50.00) Ferritin (22.0-322.0) ng/mL Albumin 2.2 L (3.5-5.0) g/dL Vitamin B12 (200.0-944.0) pg/mL TSH 6.140 H (0.465-4.680) mIU/L Urine Protein (Negative) Urine Glucose (UA) (Negative) Urine Blood (Negative) Ur Leukocyte Esterase (Negative) Urine RBC (0-5) /hpf Urine WBC (0-5) /hpf Urine WBC Clumps (None) /hpf Urine Bacteria (None) /hpf Hyaline Casts (0-2) /lpf Crossmatch 12/25/18 12/25/18 Range/Units 06:48 07:23 WBC (3.8-10.6) k/uL RBC (4.30-5.90) m/uL Hgb (13.0-17.5) gm/dL Hct (39.0-53.0) % MCHC (31.0-37.0) g/dL RDW (11.5-15.5) % Plt Count (150-450) k/uL Neutrophils # (1.3-7.7) k/uL PT (9.0-12.0) sec INR (<1.2) APTT (22.0-30.0) sec Sodium (137-145) mmol/L Potassium (3.5-5.1) mmol/L Chloride (98-107) mmol/L Carbon Dioxide (22-30) mmol/L BUN (9-20) mg/dL Creatinine (0.66-1.25) mg/dL POC Glucose (mg/dL) 69 L 74 L (75-99) mg/dL Calcium (8.4-10.2) mg/dL Phosphorus (2.5-4.5) mg/dL Magnesium (1.6-2.3) mg/dL Iron (65-175) ug/dL TIBC (228-460) ug/dL Iron Saturation (15.00-50.00) Ferritin (22.0-322.0) ng/mL Albumin (3.5-5.0) g/dL Vitamin B12 (200.0-944.0) pg/mL TSH (0.465-4.680) mIU/L Urine Protein (Negative) Urine Glucose (UA) (Negative) Urine Blood (Negative) Ur Leukocyte Esterase (Negative) Urine RBC (0-5) /hpf Urine WBC (0-5) /hpf Urine WBC Clumps (None) /hpf Urine Bacteria (None) /hpf Hyaline Casts (0-2) /lpf Crossmatch Microbiology - Last 24 Hours (Table) 12/24/18 15:18 Urine Culture - Preliminary Urine,Catheterized Assessment and Plan Assessment: #1 acute kidney injury secondary to type I cardiorenal syndrome. #2 hyperkalemia secondary to acute kidney injury and potassium supplements. #3 edema secondary to decompensated heart failure. #4 anemia secondary to hematuria status post PRBC. #5 metabolic acidosis secondary to acute kidney injury. #6 lower extremity DVT. Plan: #1 continue with Lasix 60 mg IV every 8. Monitor strict ins and outs. #2 unknown baseline creatinine. But creatinine remaining stable around 3 since yesterday. GN and myeloma workup to rule out the etiology for his CKD. #3 repeat BMP every 6 hours #4 renal diet with low potassium #5 no hydronephrosis on renal ultrasound. #6 potassium improving with diuresis. No acute indication for renal replacement therapy at this point. #7 consider urology input for hematuria
--- NOTE | 2018-12-25 09:25 | US ---
EXAMINATION TYPE: US venous doppler duplex UE RT DATE OF EXAM: 12/25/2018 COMPARISON: NONE CLINICAL HISTORY: r/o dvt . Right arm swelling and pain SIDE PERFORMED: Right Right Arm: Negative for DVT IMPRESSION: THIS EXAMINATION IS NEGATIVE FOR DVT WITHIN THE RIGHT ARM.
--- NOTE | 2018-12-25 10:16 | CONS ---
CONSULTATION Mr. Payan is a 68-year-old male who transferred from [facility] to the hospital because he is not feeling well. I could not obtain a good history from the patient. The patient according to the notes available from the alf has a history of renal failure, dementia, hyperlipidemia, and anemia. On presentation, he was noted to have significant hyperkalemia and renal failure. There is a history of stroke with right- sided weakness, although details of that are not available to me. There was a question of atrial fibrillation, although on the rhythm strips available he is in sinus mechanism. His initial EKG shows a lot of artifact with no clear atrial fibrillation. The patient is awake, alert but confused. He was found to have a DVT and was started on heparin, but that was on hold because of significant hematuria. The patient since his admission blood pressure has been stable. His potassium has come down and his urine output has been good. He had no evidence of hypotension and no ventricular tachy arrhythmia. I am not able to obtain other history from the patient. MEDICATIONS: At the time of admission included potassium, levothyroxine, Depakote, Flomax, Lasix 20 mg daily, folic acid, vitamin B, Lipitor, aspirin and Abilify and Zofran. REVIEW OF SYSTEMS: Review of system is not accurate. PHYSICAL EXAMINATION: 68-year-old male, alert, confused, in no apparent distress. Blood pressure running in the 150s and 160s with a heart rate in the 50s. HEAD: Normocephalic. Eyes sclerae anicteric. NECK: No jugular venous distention. LUNGS: With few crackles at the bases. HEART: Regular rate and rhythm S1, S2. No S3 with a systolic murmur at the base, ejection type. No diastolic murmur. No rub. ABDOMEN: Soft, nontender. Positive bowel sounds. No megaly. EXTREMITIES: +2 edema, +2 distal pulses. LAB DATA: On admission, his hemoglobin was 7, white blood cell of 14.4, platelet count of 707. His potassium on admission 7.4 with a BUN and creatinine 46 and 3.05. His potassium is down to 5.7 this morning and his creatinine is 3.03. [place] [id number] on admission. His iron saturation is 12 and his ferritin is 521. His hemoglobin this morning is 8.5 after transfusion. His TSH 6.14. His EKG revealed there is a lot of artifact but appears to be regular and probable sinus mechanism. On the monitor today, he is in sinus with short MD interval. He had venous duplex study of the lower extremities that showed a DVT on the left leg and suggestive of chronic deep venous thrombosis. His chest x-ray shows small bilateral effusion. IMPRESSION: 1. Change in mental status of unclear etiology, probably metabolic encephalopathy. 2. Worsening renal failure and hyperkalemia, stabilizing. Baseline renal function are not available. 3. Hypertension. According to the list of his medication, he was not on antihypertensive regimen. 4. Hyperlipidemia according to the list of his medication. 5. History of stroke. 6. Deep vein thrombosis. Unclear if it is acute or chronic. 7. Severe anemia, could be anemia of chronic kidney disease. RECOMMENDATION: From the cardiac standpoint, I will obtain echocardiogram with Doppler to evaluate his left ventricular systolic function. I will hold on adding antihypertensive regimen at this time. We will continue present treatment. We will follow his rhythm. The nursing staff will see if we are able to obtain any prior cardiac testing on this patient to see if he had documented atrial fibrillation and depending on his progress, further recommendation will be made. Thank you for this consult. We will follow with you. MMODL / IJN: [id number] /
[2018-12-25] MEDS: FUROSEMIDE 10 MG/ML 10 ML VIAL IV SCH ×3 (10:27→23:48)
[2018-12-25] MEDS: FERROUS SULFATE 325 MG TAB PO SCH ×2 (10:28→17:26)
[2018-12-25] MEDS: MAGNESIUM SULFATE-D5W PMX 1 GM in DEXTROSE/WATER 1 100ML.BAG IVPB SCH ×2 (10:28→13:58)
[2018-12-25] MEDS: DIVALPROEX ER 500 MG TAB.ER.24H PO SCH ×2 (10:28→20:26)
--- NOTE | 2018-12-25 10:31 | CONS ---
CONSULTATION HISTORY: This is a pulmonary/critical care consultation. This is a patient who apparently presented to the emergency room on December 24. The patient was admitted with a diagnosis of heart failure, acute kidney injury, anemia with a hemoglobin below 7 requiring 2 units of PRBCs, significant hyperkalemia, profound weakness and left lower extremity DVT. The patient is currently in room 266 in the ICU. The patient currently is not receiving any supplemental oxygen. He is getting a basic IV at 10 mL an hours saline. He apparently was transferred from a rehab facility. The only thing noted in the ER [facility] was that of profound weakness and feeling run down. He apparently was not able to really describe his symptoms particularly well. Denies any pain. He states also according to the ER [facility] that his breathing was not 100% normal. He apparently was found at the [facility] to have a hemoglobin of 6.3, and for that reason, was transferred for additional evaluation and treatment. Today he is not really able to add much in addition to that story. ALLERGIES: Denied. MEDICATIONS: Zofran, Tylenol, potassium levothyroxine, Depakote, Flomax, Lasix, folic acid, vitamin B12, Lipitor, baby aspirin and Abilify. PAST MEDICAL HISTORY: Apparently positive for atrial fibrillation, CHF, hyperlipidemia, hypertension, chronic kidney disease, and syncope. He also apparently has a history of chronic anemia, urinary tract infection, dysphagia, and depression. PAST SURGICAL HISTORY: Not known. Most of it is remote. SOCIAL HISTORY: Positive for previous tobacco use. Denies any alcohol use or illicit drug use. OCCUPATIONAL HISTORY: Not known. FAMILY HISTORY: Not known. REVIEW OF SYSTEMS: CONSTITUTIONAL: Weakness. NEUROLOGIC: Negative. HEENT: Negative. CARDIOVASCULAR: Negative. PULMONARY: Shortness of breath. GI: Negative. : Negative. RHEUMATOLOGIC: Negative. IMMUNOLOGIC: Negative. ENDOCRINOLOGIC: Negative. DERMATOLOGIC: Negative. PHYSICAL EXAMINATION: Current vital signs are reviewed, temperature 97.8, heart rate 60, respiratory rate 15, blood pressure 131/68 mean 89. Saturation on room air 97%. Appears in no acute distress. Not having any respiratory distress. No audible wheezing. No conversational dyspnea. No use of accessory muscles. HEENT examination is grossly unremarkable. Mucous membranes are moist. No oral lesions. Neck is supple. Full range of motion. No adenopathy. Neck veins are flat. Cardiovascular examination reveals mild bradycardia. Heart rate right below 60. S1, S2 normal. Lungs reveal relatively clear breath sounds. No wheezes, rhonchi, or significant crackles. Breath sounds equal bilaterally. Abdomen is soft. Bowel sounds are heard. Extremities are intact. No cyanosis, clubbing, or edema. Skin without rash. Neurologic examination is brief but nonfocal. LABORATORY DATA: Reviewed. White count 13, hemoglobin 8.6, hematocrit 27.4, platelet count is 572,000. PT 12.5, INR 1.2, PTT 32. Sodium 138, potassium 5.7, chloride 107, CO2 of 22, anion gap is 9. BUN and creatinine were 55 and 3.03. Phosphorus 7.3, magnesium 1.3. His albumin is 2.2. TSH is 6.140. Urine is yellow and clear, 1+ protein. Blood is large positive. Leukocyte esterase is small positive. RBCs greater than 182 WBCs greater than 28 and there is moderate bacteria. Chest x-ray shows some mild fluid overload with bilateral effusions and some mild interstitial edema. Ultrasound of the kidney showed no evidence of hydronephrosis. Dopplers of the legs show evidence of left lower extremity DVT. Doppler of the right arm was negative for DVT. Medications are reviewed. He is on Tylenol, calcium, Rocephin, Depakote, iron, Lasix, subcu heparin, and Narcan. ASSESSMENT: 1. Acute on chronic kidney failure with profound hyperkalemia, improved. 2. Anemia of chronic disease, status post 3 units of PRBCs. 3. Profound weakness, likely related to kidney failure and anemia. 4. CHF. 5. Left lower extremity DVT. 6. Profound hyperkalemia. 7. History of atrial fibrillation. 8. History of hypertension. 9. Hyperlipidemia. 10.History of dysphagia. 11.Depression. 12.Hypothyroidism. 13.History of syncope. 14.Previous history of tobacco use. PLAN: The patient will be made an ICU patient. I did discuss the case with Nephrology. The patient does not have any prior labs to suggests that the kidney abnormalities are acute or chronic. Additional recommendations and suggestions are forthcoming. Currently, his respiratory status is stable. Hemodynamically, he is stable. He is being treated for urinary tract infection. We will continue to follow. Prognosis is guarded. MMODL / IJN: [id number] /
--- NOTE | 2018-12-25 10:40 | PN ---
PROGRESS NOTE This is a 68 -year-old gentleman who has been admitted to intensive care unit. History of dementia, history of chronic anemia, history of hypertension, congestive heart failure. The patient has been admitted with acute on chronic renal failure. The patient has developed a DVT of the left femoral vein. The patient also has a chronic infection and some hematuria. I was consulted for placement of a possible filter. The patient was seen in his room. His neck is supple. Chest has a crackle. Normal sinus rhythm. ABDOMEN: Soft. Femoral pulses are present. The patient has mild swelling of the lower extremity. No vascular compromise noted. IMPRESSION: 1. Acute on chronic renal failure. 2. History of deep vein thrombosis. If there is any contraindication for heparin we will place a filter. Follow with you. Thank you very much for the consultation. MMODL / IJN: [id number] /
[2018-12-25] MEDS: SODIUM CHLORIDE 0.9% 1,000 ML IV SCH (11:06)
--- NOTE | 2018-12-25 11:33 | P.CNOR ---
History of Present Illness - HPI Consult date: 12/25/18 Consult reason: joint pain History of present illness: Patient is a 68-year-old male who was admitted to [facility] ICU unit from neurological rehab facility. Patient was admitted due to generali zed weakness and not feeling well. Lab tests revealed significant abnormalities in kidney function. Patient's past medical history is been very hard to review, patient has no family and apparently was recently admitted to [facility] from an adult foster care facility. Apparently patient has been evaluated on a few different occasions at [facility]. Social work is working on retrieving documents Our orthopedic team was consulted with regards to right shoulder pain and swelling. Patient does have a history of dementia, his [facility] difficulty to achieve. He denies any acute trauma, including falls. Denies any previous surgery involving the right shoulder. He admits the shoulder bothering him for about a month or so. Patient denies any other orthopedic complaints at this time. Review of Systems Constitutional: Reports as per [facility] Past Medical History Past Medical History: Atrial Fibrillation, Heart Failure, Hyperlipidemia, Hypertension, Renal Disease, Syncope Additional Past Medical History / Comment(s): anemia, UTI, Hypothyroid, depression, dysphagia History of Any Multi-Drug Resistant Organisms: None Reported Additional Past Surgical History / Comment(s): unknown Past Anesthesia/Blood Transfusion Reactions: No Reported Reaction Past Psychological History: No Psychological Hx Reported Smoking Status: Former smoker Past Alcohol Use History: None Reported Past Drug Use History: None Reported - Past Family History Father History Unknown: Yes Mother History Unknown: Yes Medications and Allergies Home Medications Medication Instructions Recorded Confirmed Type ARIPiprazole [Abilify] 10 mg PO DAILY 12/24/18 12/24/18 History Acetaminophen Tab [Tylenol Tab] 650 mg PO Q6H PRN 12/24/18 12/24/18 History Aspirin [Miller Aspirin EC] 81 mg PO HS 12/24/18 12/24/18 History Atorvastatin [Lipitor] 10 mg PO HS@199912/24/18 12/24/18 History Cyanocobalamin [Vitamin B-12] 500 mcg PO HS 12/24/18 12/24/18 History Divalproex ER [Depakote ER] 500 mg PO BID 12/24/18 12/24/18 History Folic Acid 1 mg PO HS 12/24/18 12/24/18 History Furosemide [Lasix] 20 mg PO DAILY 12/24/18 12/24/18 History Levothyroxine Sodium [Synthroid] 50 mcg PO DAILY 12/24/18 12/24/18 History Ondansetron HCl [Zofran] 4 mg PO Q6H PRN 12/24/18 12/24/18 History Potassium Chloride ER [K-Dur 20] 40 meq PO BID 12/24/18 12/24/18 History Tamsulosin HCl [Flomax] 0.4 mg PO HS 12/24/18 12/24/18 History Allergies Allergy/AdvReac Type Severity Reaction Status Date / Time No Known Allergies Allergy Verified 12/24/18 08:05 Physical Examination Right upper extremity: No obvious open lesions or sores present throughout the upper extremity, no significant areas of erythema Obvious soft tissue swelling present over the anterior aspect shoulder, also notable swelling of right upper extremity when compared to the left Patient is very rigid on exam, very hard to even extend and flex the elbow, along with passive motion of shoulder. Attempted passive motion of the shoulder does reproduce discomfort over the anterior, lateral posterior aspect of shoulder. His sensation to light touch is intact throughout the extremity. He is able to wiggle the fingers and make a fist minimal difficulty. He denies any tenderness with palpation surrounding the hand or wrist or elbow Tenderness with palpation present over the anterior aspect of the glenohumeral joint line Patient is tender with palpation at the AC joint Results - Labs Labs: Abnormal Lab Results - Last 24 Hours (Table) 12/24/18 12/24/18 12/24/18 Range/Units 04:35 09:37 11:20 WBC (3.8-10.6) k/uL RBC (4.30-5.90) m/uL Hgb (13.0-17.5) gm/dL Hct (39.0-53.0) % MCHC (31.0-37.0) g/dL RDW (11.5-15.5) % Plt Count (150-450) k/uL Neutrophils # (1.3-7.7) k/uL PT (9.0-12.0) sec INR (<1.2) APTT (22.0-30.0) sec Sodium (137-145) mmol/L Potassium (3.5-5.1) mmol/L Chloride (98-107) mmol/L Carbon Dioxide (22-30) mmol/L BUN (9-20) mg/dL Creatinine (0.66-1.25) mg/dL POC Glucose (mg/dL) (75-99) mg/dL Calcium (8.4-10.2) mg/dL Phosphorus (2.5-4.5) mg/dL Magnesium (1.6-2.3) mg/dL Iron 21 L (65-175) ug/dL TIBC 175 L (228-460) ug/dL Iron Saturation 12.00 L (15.00-50.00) Ferritin 521.0 H (22.0-322.0) ng/mL Albumin (3.5-5.0) g/dL Vitamin B12 1772.0 H (200.0-944.0) pg/mL TSH (0.465-4.680) mIU/L Urine Protein 1+ H (Negative) Urine Glucose (UA) Trace H (Negative) Urine Blood Large H (Negative) Ur Leukocyte Esterase Small H (Negative) Urine RBC >182 H (0-5) /hpf Urine WBC 28 H (0-5) /hpf Urine WBC Clumps Occasional H (None) /hpf Urine Bacteria Moderate H (None) /hpf Hyaline Casts 4 H (0-2) /lpf Crossmatch See Detail 12/24/18 12/24/18 12/24/18 Range/Units 12:06 14:25 14:31 WBC 13.4 H (3.8-10.6) k/uL RBC 2.70 L (4.30-5.90) m/uL Hgb 8.2 L (13.0-17.5) gm/dL Hct 26.9 L (39.0-53.0) % MCHC 30.4 L (31.0-37.0) g/dL RDW 17.4 H (11.5-15.5) % Plt Count 624 H (150-450) k/uL Neutrophils # 10.6 H (1.3-7.7) k/uL PT (9.0-12.0) sec INR (<1.2) APTT (22.0-30.0) sec Sodium (137-145) mmol/L Potassium 6.9 H* (3.5-5.1) mmol/L Chloride 110 H (98-107) mmol/L Carbon Dioxide 20 L (22-30) mmol/L BUN 46 H (9-20) mg/dL Creatinine 2.97 H (0.66-1.25) mg/dL POC Glucose (mg/dL) 112 H (75-99) mg/dL Calcium (8.4-10.2) mg/dL Phosphorus (2.5-4.5) mg/dL Magnesium 1.4 L (1.6-2.3) mg/dL Iron (65-175) ug/dL TIBC (228-460) ug/dL Iron Saturation (15.00-50.00) Ferritin (22.0-322.0) ng/mL Albumin (3.5-5.0) g/dL Vitamin B12 (200.0-944.0) pg/mL TSH (0.465-4.680) mIU/L Urine Protein (Negative) Urine Glucose (UA) (Negative) Urine Blood (Negative) Ur Leukocyte Esterase (Negative) Urine RBC (0-5) /hpf Urine WBC (0-5) /hpf Urine WBC Clumps (None) /hpf Urine Bacteria (None) /hpf Hyaline Casts (0-2) /lpf Crossmatch 12/24/18 12/24/18 12/24/18 Range/Units 16:40 17:08 20:04 WBC (3.8-10.6) k/uL RBC (4.30-5.90) m/uL Hgb (13.0-17.5) gm/dL Hct (39.0-53.0) % MCHC (31.0-37.0) g/dL RDW (11.5-15.5) % Plt Count (150-450) k/uL Neutrophils # (1.3-7.7) k/uL PT (9.0-12.0) sec INR (<1.2) APTT (22.0-30.0) sec Sodium 136 L (137-145) mmol/L Potassium 6.6 H* 6.2 H* (3.5-5.1) mmol/L Chloride 108 H (98-107) mmol/L Carbon Dioxide 21 L (22-30) mmol/L BUN 45 H 49 H (9-20) mg/dL Creatinine 3.04 H 2.96 H (0.66-1.25) mg/dL POC Glucose (mg/dL) 100 H (75-99) mg/dL Calcium 8.3 L (8.4-10.2) mg/dL Phosphorus (2.5-4.5) mg/dL Magnesium (1.6-2.3) mg/dL Iron (65-175) ug/dL TIBC (228-460) ug/dL Iron Saturation (15.00-50.00) Ferritin (22.0-322.0) ng/mL Albumin (3.5-5.0) g/dL Vitamin B12 (200.0-944.0) pg/mL TSH (0.465-4.680) mIU/L Urine Protein (Negative) Urine Glucose (UA) (Negative) Urine Blood (Negative) Ur Leukocyte Esterase (Negative) Urine RBC (0-5) /hpf Urine WBC (0-5) /hpf Urine WBC Clumps (None) /hpf Urine Bacteria (None) /hpf Hyaline Casts (0-2) /lpf Crossmatch 12/24/18 12/24/18 12/25/18 Range/Units 20:04 20:47 02:28 WBC 11.6 H 13.0 H (3.8-10.6) k/uL RBC 2.39 L 2.85 L (4.30-5.90) m/uL Hgb 7.0 L 8.6 L D (13.0-17.5) gm/dL Hct 22.9 L 27.4 L (39.0-53.0) % MCHC 30.6 L (31.0-37.0) g/dL RDW 17.5 H 17.0 H (11.5-15.5) % Plt Count 571 H 572 H (150-450) k/uL Neutrophils # 9.3 H (1.3-7.7) k/uL PT (9.0-12.0) sec INR (<1.2) APTT (22.0-30.0) sec Sodium (137-145) mmol/L Potassium (3.5-5.1) mmol/L Chloride (98-107) mmol/L Carbon Dioxide (22-30) mmol/L BUN (9-20) mg/dL Creatinine (0.66-1.25) mg/dL POC Glucose (mg/dL) 107 H (75-99) mg/dL Calcium (8.4-10.2) mg/dL Phosphorus (2.5-4.5) mg/dL Magnesium (1.6-2.3) mg/dL Iron (65-175) ug/dL TIBC (228-460) ug/dL Iron Saturation (15.00-50.00) Ferritin (22.0-322.0) ng/mL Albumin (3.5-5.0) g/dL Vitamin B12 (200.0-944.0) pg/mL TSH (0.465-4.680) mIU/L Urine Protein (Negative) Urine Glucose (UA) (Negative) Urine Blood (Negative) Ur Leukocyte Esterase (Negative) Urine RBC (0-5) /hpf Urine WBC (0-5) /hpf Urine WBC Clumps (None) /hpf Urine Bacteria (None) /hpf Hyaline Casts (0-2) /lpf Crossmatch 12/25/18 12/25/18 12/25/18 Range/Units 05:19 05:19 05:27 WBC 12.1 H (3.8-10.6) k/uL RBC 2.86 L (4.30-5.90) m/uL Hgb 8.5 L (13.0-17.5) gm/dL Hct 27.4 L (39.0-53.0) % MCHC (31.0-37.0) g/dL RDW 16.9 H (11.5-15.5) % Plt Count 600 H (150-450) k/uL Neutrophils # 9.7 H (1.3-7.7) k/uL PT 12.5 H (9.0-12.0) sec INR 1.2 H (<1.2) APTT 32.0 H (22.0-30.0) sec Sodium (137-145) mmol/L Potassium 5.7 H (3.5-5.1) mmol/L Chloride (98-107) mmol/L Carbon Dioxide (22-30) mmol/L BUN 55 H (9-20) mg/dL Creatinine 3.03 H (0.66-1.25) mg/dL POC Glucose (mg/dL) (75-99) mg/dL Calcium (8.4-10.2) mg/dL Phosphorus 7.3 H (2.5-4.5) mg/dL Magnesium 1.3 L (1.6-2.3) mg/dL Iron (65-175) ug/dL TIBC (228-460) ug/dL Iron Saturation (15.00-50.00) Ferritin (22.0-322.0) ng/mL Albumin 2.2 L (3.5-5.0) g/dL Vitamin B12 (200.0-944.0) pg/mL TSH 6.140 H (0.465-4.680) mIU/L Urine Protein (Negative) Urine Glucose (UA) (Negative) Urine Blood (Negative) Ur Leukocyte Esterase (Negative) Urine RBC (0-5) /hpf Urine WBC (0-5) /hpf Urine WBC Clumps (None) /hpf Urine Bacteria (None) /hpf Hyaline Casts (0-2) /lpf Crossmatch 12/25/18 12/25/18 Range/Units 06:48 07:23 WBC (3.8-10.6) k/uL RBC (4.30-5.90) m/uL Hgb (13.0-17.5) gm/dL Hct (39.0-53.0) % MCHC (31.0-37.0) g/dL RDW (11.5-15.5) % Plt Count (150-450) k/uL Neutrophils # (1.3-7.7) k/uL PT (9.0-12.0) sec INR (<1.2) APTT (22.0-30.0) sec Sodium (137-145) mmol/L Potassium (3.5-5.1) mmol/L Chloride (98-107) mmol/L Carbon Dioxide (22-30) mmol/L BUN (9-20) mg/dL Creatinine (0.66-1.25) mg/dL POC Glucose (mg/dL) 69 L 74 L (75-99) mg/dL Calcium (8.4-10.2) mg/dL Phosphorus (2.5-4.5) mg/dL Magnesium (1.6-2.3) mg/dL Iron (65-175) ug/dL TIBC (228-460) ug/dL Iron Saturation (15.00-50.00) Ferritin (22.0-322.0) ng/mL Albumin (3.5-5.0) g/dL Vitamin B12 (200.0-944.0) pg/mL TSH (0.465-4.680) mIU/L Urine Protein (Negative) Urine Glucose (UA) (Negative) Urine Blood (Negative) Ur Leukocyte Esterase (Negative) Urine RBC (0-5) /hpf Urine WBC (0-5) /hpf Urine WBC Clumps (None) /hpf Urine Bacteria (None) /hpf Hyaline Casts (0-2) /lpf Crossmatch Microbiology - Last 24 Hours (Table) 12/24/18 15:18 Urine Culture - Preliminary Urine,Catheterized H & H 12/24/18 12/24/18 12/24/18 Range/Units 04:35 14:31 20:04 Hgb 7.0 L 8.2 L 7.0 L (13.0-17.5) gm/dL Hct 22.3 L 26.9 L 22.9 L (39.0-53.0) % 12/25/18 12/25/18 Range/Units 02:28 05:19 Hgb 8.6 L D 8.5 L (13.0-17.5) gm/dL Hct 27.4 L 27.4 L (39.0-53.0) % Coagulation 12/24/18 12/25/18 Range/Units 04:35 05:27 INR 1.2 H 1.2 H (<1.2) Result Diagrams: 12/25/18 05:19 12/25/18 05:19 - Diagnostic results Shoulder x-ray: report reviewed, image reviewed Assessment and Plan Plan: Imaging: Multiple views of the right shoulder obtained. Images demonstrate no acute fractures or dislocations. There is evidence of both AC joint arthritis and glenohumeral arthritis. Doppler was also done of the right upper extremity which was negative for any DVT. Assessment: 1. Right shoulder pain 2. 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 Right shoulder adhesive capsulitis 4. History of stroke with right-sided residual weakness 5. Multiple medical comorbidities Plan: I was able to review the imaging and physical exam findings with my attending Dr. Rogel. Nor orthopedic surgical intervention needed at this time. I expect with patients osteoarthritis along with history of stroke and residual weakness, nonuse of the right upper extremity has contributed to his current state. Recommend gentle range of motion exercises of the right shoulder and upper extremity. Pain control, recommend icing of the shoulder along with anti-inflammatory medication Other medical specialties We'll be available for any further questions regarding this patient Time with Patient: Less than 30
[2018-12-25 11:55] LABS: Glucose,Whole Blood 99 mg/dL (75-99)
--- NOTE | 2018-12-25 12:23 | ECHOF ---
Referral Reason:Rule out heart disease MEASUREMENTS -------- HEIGHT: 175.3 cm WEIGHT: 80.3 kg BP: 142/66 RVIDd: 3.4 cm (< 3.3) IVSd: 1.4 cm (0.6 - 1.1) LVIDd: 5.6 cm (3.9 - 5.3) LVPWd: 1.5 cm (0.6 - 1.1) IVSs: 1.9 cm LVIDs: 3.2 cm LVPWs: 2.1 cm LA Diam: 3.9 cm (2.7 - 3.8) LAESV Index (A-L): 23.93 ml/m Ao Diam: 3.4 cm (2.0 - 3.7) AV Cusp: 1.9 cm (1.5 - 2.6) MV EXCURSION: 17.701 mm (> 18.000) MV EF SLOPE: 124 mm/s (70 - 150) EPSS: 0.6 cm MV E Clint: 0.99 m/s MV DecT: 236 ms MV A Clint: 0.59 m/s MV E/A Ratio: 1.66 RAP: 5.00 mmHg RVSP: 36.98 mmHg FINDINGS -------- Sinus rhythm. This was a technically adequate study. The left ventricular size is normal. There is moderate concentric left ventricular hypertrophy. O verall left ventricular systolic function is normal with, an EF between 55 - 60 %. The right ventricle is mildly enlarged. Normal LA size by volume 22+/-6 ml/m2. The right atrium is normal in size. There is mild aortic valve sclerosis. The mitral valve leaflets are mildly thickened. Mild mitral regurgitation is present. Mild tricuspid regurgitation present. There is mild pulmonary hypertension. The right ventricular systolic pressure, as measured by Doppler, is 36.98mmHg. The pulmonic valve was not well visualized. The aortic root size is normal. IVC Not well visulized. There is no pericardial effusion. CONCLUSIONS -------- 1. Sinus rhythm. 2. This was a technically adequate study. 3. The left ventricular size is normal. 4. There is moderate concentric left ventricular hypertrophy. 5. Overall left ventricular systolic function is normal with, an EF between 55 - 60 %. 6. The right ventricle is mildly enlarged. 7. Normal LA size by volume 22+/-6 ml/m2. 8. There is mild aortic valve sclerosis. 9. The mitral valve leaflets are mildly thickened. 10. Mild mitral regurgitation is present. 11. Mild tricuspid regurgitation present. 12. There is mild pulmonary hypertension. 13. The pulmonic valve was not well visualized. 14. The aortic root size is normal. 15. IVC Not well visulized. 16. There is no pericardial effusion. [employer]LLER HELPER: Sun Osman RDCS
[2018-12-25 14:15] LABS: Anisocytosis Slight; HCT 30.1 % (39.0-53.0); HGB 9.2 gm/dL (13.0-17.5); Hypochromasia Moderate; MCH 29.6 pg (25.0-35.0); MCHC 30.6 g/dL (31.0-37.0); MCV 96.9 fL (80.0-100.0); Macrocytosis Slight; Mean Platelet Volume 7.5; Platelet Count 587 k/uL (150-450); RBC 3.11 m/uL (4.30-5.90); RDW 16.6 % (11.5-15.5); WBC 14.5 k/uL (3.8-10.6)
[2018-12-25 14:22] LABS: Calcium 8.5 mg/dL (8.4-10.2); Magnesium 1.5 mg/dL (1.6-2.3); Potassium 5.1 mmol/L (3.5-5.1)
[2018-12-25 17:12] LABS: Glucose,Whole Blood 98 mg/dL (75-99)
[2018-12-25 20:54] LABS: Glucose,Whole Blood 106 mg/dL (75-99)
[2018-12-25] MEDS: ACETAMINOPHEN TAB 325 MG TAB PO PRN (21:51)
[2018-12-26] MEDS: ACETAMINOPHEN TAB 325 MG TAB PO PRN ×3 (04:12→20:50)
[2018-12-26 05:01] LABS: Calcium 8.4 mg/dL (8.4-10.2); Magnesium 1.6 mg/dL (1.6-2.3); Potassium 3.9 mmol/L (3.5-5.1)
[2018-12-26 05:06] LABS: Anisocytosis Slight; Basophils % (A) 0 %; Eosinophils # (A) 0.2 k/uL (0-0.7); Eosinophils % (A) 2 %; HCT 27.5 % (39.0-53.0); HGB 8.7 gm/dL (13.0-17.5); Lymphocytes # (A) 1.5 k/uL (1.0-4.8); Lymphocytes % (A) 13 %; MCH 29.7 pg (25.0-35.0); MCHC 31.8 g/dL (31.0-37.0); MCV 93.5 fL (80.0-100.0); Mean Platelet Volume 7.3; Monocytes # (A) 0.8 k/uL (0-1.0); Monocytes % (A) 7 %; Neutrophils # (A) 8.7 k/uL (1.3-7.7); Neutrophils % (A) 76 %; Platelet Count 589 k/uL (150-450); RBC 2.94 m/uL (4.30-5.90); RDW 16.5 % (11.5-15.5); WBC 11.5 k/uL (3.8-10.6)
[2018-12-26 07:01] LABS: Glucose,Whole Blood 79 mg/dL (75-99)
--- NOTE | 2018-12-26 07:41 | P.PN ---
Subjective Progress Note Date: 12/26/18 Principal diagnosis: Acute renal failure This is a 68-year-old gentleman with unknown past medical history who was brought from extended care facility to the hospital with a change in mental status. The patient was found to be hyperkalemic and in acute renal failure. He was started on diuretics with improvement in his potassium but the creatinine continues to be elevated. The baseline creatinine is unknown. On follow-up with the patient today, December 262018, the patient continues to be slightly confused. He does not know where he is at this point. He is oriented to time. Seems to be asymptomatic from the cardiac standpoint. He has been maintaining normal sinus mechanism and he was in bigeminy when he came in but he was hyperkalemic at this point. Potassium this morning is back to normal. The creatinine continues to be around 3. The echo revealed normal LV function. He continues to be on Lasix IV and that has been managed by the nephrology service. Objective - Vital Signs Vital signs: Vital Signs Temp 97.8 F 12/26/18 04:00 Pulse 54 L 12/26/18 07:00 Resp 13 12/26/18 07:00 BP 136/66 12/26/18 07:00 Pulse Ox 90 L 12/26/18 07:00 Intake & Output 12/25/18 12/26/18 12/26/18 18:59 06:59 18:59 Intake Total 210 920 Output Total 2425 1520 Balance -2215 -600 Weight 84.9 kg Intake: IV 110 120 Sodium Chloride 0.9% 1, 110 120 000 ml @ 20 mls/hr IV . Q24H SAMANTHA Rx#:[id number] Intake, IV Titration 100 Amount Magnesium Sulfate-D5w Pmx 100 1 gm In Dextrose/Water 1 100ml.bag @ 100 mls/hr IVPB Q1H SAMANTHA Rx#: [id number] Oral 800 Output: Urine 2425 1520 Other: Voiding Method Indwelling Catheter Indwelling Catheter - Constitutional General appearance: Present: no acute distress - Respiratory Respiratory: bilateral: rales - Cardiovascular Rhythm: regular Heart sounds: normal: S1, S2 Abnormal Heart Sounds: Present: systolic murmur - Labs CBC & Chem 7: 12/26/18 04:34 12/26/18 04:34 Labs: Abnormal Lab Results - Last 24 Hours (Table) 12/25/18 12/25/18 12/25/18 Range/Units 07:23 13:53 13:53 WBC 14.5 H (3.8-10.6) k/uL RBC 3.11 L (4.30-5.90) m/uL Hgb 9.2 L (13.0-17.5) gm/dL Hct 30.1 L (39.0-53.0) % MCHC 30.6 L (31.0-37.0) g/dL RDW 16.6 H (11.5-15.5) % Plt Count 587 H (150-450) k/uL Neutrophils # (1.3-7.7) k/uL Sodium (137-145) mmol/L Carbon Dioxide 20 L (22-30) mmol/L BUN 56 H (9-20) mg/dL Creatinine 3.01 H (0.66-1.25) mg/dL Glucose 102 H (74-99) mg/dL POC Glucose (mg/dL) 74 L (75-99) mg/dL Magnesium 1.5 L (1.6-2.3) mg/dL 12/25/18 12/26/18 12/26/18 Range/Units 20:53 04:34 04:34 WBC 11.5 H (3.8-10.6) k/uL RBC 2.94 L (4.30-5.90) m/uL Hgb 8.7 L (13.0-17.5) gm/dL Hct 27.5 L (39.0-53.0) % MCHC (31.0-37.0) g/dL RDW 16.5 H (11.5-15.5) % Plt Count 589 H (150-450) k/uL Neutrophils # 8.7 H (1.3-7.7) k/uL Sodium 136 L (137-145) mmol/L Carbon Dioxide (22-30) mmol/L BUN 61 H (9-20) mg/dL Creatinine 3.02 H (0.66-1.25) mg/dL Glucose (74-99) mg/dL POC Glucose (mg/dL) 106 H (75-99) mg/dL Magnesium (1.6-2.3) mg/dL Microbiology - Last 24 Hours (Table) 12/24/18 15:18 Urine Culture - Final Urine,Catheterized Assessment and Plan Assessment: Assessment #1 change in mental status #2 acute renal failure #3 hyperkalemia #4 multiple comorbid conditions Plan #1 continue the current medical regimen #2 the echocardiogram was reviewed and revealed normal LV function #3 follow-up with the patient
[2018-12-26] MEDS: FUROSEMIDE 10 MG/ML 10 ML VIAL IV SCH ×3 (08:00→20:58)
--- NOTE | 2018-12-26 08:21 | P.PN ---
Subjective Patient seen in follow-up for acute kidney injury. Unknown baseline renal function. Creatinine stable at 3.02 today. He is maintained on Lasix 60 mg IV 3 times daily. He is nonoliguric. Dyspnea is improved. Oral intake is fair. No vomiting or diarrhea. Vital signs are stable. General: The patient appeared well nourished and normally developed. HEENT: Head exam is unremarkable. Neck is without jugular venous distension. LUNGS: Breath sounds decreased. HEART: Rate and Rhythm are regular. First and second heart sounds normal. No murmurs, rubs or gallops. ABDOMEN: Abdominal exam reveals normal bowel sounds. Non-tender and non-distende d. No evidence of peritonitis. EXTREMITITES: 1+ edema. Objective - Vital Signs Vital signs: Vital Signs Temp 97.8 F 12/26/18 04:00 Pulse 54 L 12/26/18 07:00 Resp 13 12/26/18 07:00 BP 136/66 12/26/18 07:00 Pulse Ox 90 L 12/26/18 07:00 Intake & Output 12/25/18 12/26/18 12/26/18 18:59 06:59 18:59 Intake Total 210 920 250 Output Total 2425 1520 75 Balance -2215 -600 175 Weight 84.9 kg Intake: IV 110 120 10 Sodium Chloride 0.9% 1, 110 120 10 000 ml @ 20 mls/hr IV . Q24H SAMANTHA Rx#:[id number] Intake, IV Titration 100 Amount Magnesium Sulfate-D5w Pmx 100 1 gm In Dextrose/Water 1 100ml.bag @ 100 mls/hr IVPB Q1H SAMANTHA Rx#: [id number] Oral 800 240 Output: Urine 2425 1520 75 Other: Voiding Method Indwelling Catheter Indwelling Catheter - Labs CBC & Chem 7: 12/26/18 04:34 12/26/18 04:34 Labs: Abnormal Lab Results - Last 24 Hours (Table) 12/25/18 12/25/18 12/25/18 Range/Units 13:53 13:53 20:53 WBC 14.5 H (3.8-10.6) k/uL RBC 3.11 L (4.30-5.90) m/uL Hgb 9.2 L (13.0-17.5) gm/dL Hct 30.1 L (39.0-53.0) % MCHC 30.6 L (31.0-37.0) g/dL RDW 16.6 H (11.5-15.5) % Plt Count 587 H (150-450) k/uL Neutrophils # (1.3-7.7) k/uL Sodium (137-145) mmol/L Carbon Dioxide 20 L (22-30) mmol/L BUN 56 H (9-20) mg/dL Creatinine 3.01 H (0.66-1.25) mg/dL Glucose 102 H (74-99) mg/dL POC Glucose (mg/dL) 106 H (75-99) mg/dL Magnesium 1.5 L (1.6-2.3) mg/dL 12/26/18 12/26/18 Range/Units 04:34 04:34 WBC 11.5 H (3.8-10.6) k/uL RBC 2.94 L (4.30-5.90) m/uL Hgb 8.7 L (13.0-17.5) gm/dL Hct 27.5 L (39.0-53.0) % MCHC (31.0-37.0) g/dL RDW 16.5 H (11.5-15.5) % Plt Count 589 H (150-450) k/uL Neutrophils # 8.7 H (1.3-7.7) k/uL Sodium 136 L (137-145) mmol/L Carbon Dioxide (22-30) mmol/L BUN 61 H (9-20) mg/dL Creatinine 3.02 H (0.66-1.25) mg/dL Glucose (74-99) mg/dL POC Glucose (mg/dL) (75-99) mg/dL Magnesium (1.6-2.3) mg/dL Microbiology - Last 24 Hours (Table) 12/24/18 15:18 Urine Culture - Final Urine,Catheterized Assessment and Plan Plan: Assessment: 1. Acute kidney injury secondary to ATN secondary to cardiorenal syndrome. Renal function stable. Creatinine 3.02 today. Unknown baseline renal function. No evidence of hydronephrosis noted on renal ultrasound. 2. Volume overload secondary to CHF. 3. Diastolic CHF. 4. Left lower extremity DVT. 5. Proteinuria. Rule out GN. 6. Hypomagnesemia secondary to diuresis. Plan: Decreased Lasix to 60 mg IV twice daily. Quantify proteinuria. Check urine eosinophils. Follow-up serologies. Replace magnesium. 2 g IV today. Continue to monitor renal function and urine output.
[2018-12-26] MEDS: DIVALPROEX ER 500 MG TAB.ER.24H PO SCH ×2 (08:51→20:50)
[2018-12-26] MEDS: MAGNESIUM OXIDE 400 MG TAB PO SCH (08:51)
[2018-12-26] MEDS: FERROUS SULFATE 325 MG TAB PO SCH ×2 (08:51→20:50)
[2018-12-26] MEDS: MAGNESIUM SULFATE-D5W PMX 1 GM in DEXTROSE/WATER 1 100ML.BAG IVPB SCH ×2 (08:51→11:02)
[2018-12-26 11:51] LABS: Folate, Serum >24.0 ng/mL; Iron Saturation 17.28 (15.00-50.00)
[2018-12-26 12:10] LABS: Iron Saturation 27.16 (15.00-50.00)
[2018-12-26 12:20] LABS: Hepatitis A Antibody IgM Non-Reactive (Non-Reactive); Hepatitis B Core IgM Non-Reactive (Non-Reactive)
[2018-12-26 12:23] LABS: Glucose,Whole Blood 106 mg/dL (75-99)
[2018-12-26 12:49] LABS: Protein, Total 6.7 g/dL (6.2-8.2)
[2018-12-26 14:11] LABS: Anti-DNA, DS unit <1.0 IU/mL; DNA Double-Stranded NEGATIVE (NEGATIVE)
--- NOTE | 2018-12-26 16:16 | P.PN ---
Subjective Progress Note Date: 12/26/18 On today's evaluation of 12/26/2018, I'm seeing this patient for a follow-up. The patient is and the hospital because of a combination of problems. He presented to us with profound weakness and an acute kidney injury. He was profoundly anemic and he was also found to have a left lower extremity DVT. He was given anticoagulation with IV heparin and that the patient was thought that the patient developed extensive hematuria and for now the plan is to proceed with an IVC filter placement. The patient is a left lower extremity femoral DVT. As far as the anemia, the patient was seen by hematology oncology and the patient was given packed RBC transfusion and the patient received a total of 3 units of packed RBC and the most recent hemoglobin is up to 8.7. The patient's renal function continues to be an. With a creatinine of 3.02 with LDL of 61. The patient was seen by nephrology. He still had some lower extremity edema in the Lasix dose was reduced to 60 mg IV push every 12 hours. He is awake and he is following commands and is able to tolerate his diet. He was admitted to the [facility] following a stroke and he was rehabilitating at [facility] . I'm interested in obtaining all of his records from the hospital to get some more details on his condition. Objective - Vital Signs Vital signs: Vital Signs Temp 97.1 F L 12/26/18 08:00 Pulse 52 L 12/26/18 13:00 Resp 17 12/26/18 13:00 BP 135/74 12/26/18 13:00 Pulse Ox 94 L 12/26/18 13:00 Intake & Output 12/25/18 12/26/18 12/26/18 18:59 06:59 18:59 Intake Total 210 920 730 Output Total 2425 1520 750 Balance -2215 -600 -20 Weight 84.9 kg 84.9 kg Intake: IV 110 120 50 Sodium Chloride 0.9% 1, 110 120 50 000 ml @ 20 mls/hr IV . Q24H [facility] Rx#:[id number] Intake, IV Titration 100 200 Amount Magnesium Sulfate-D5w Pmx 100 1 gm In Dextrose/Water 1 100ml.bag @ 100 mls/hr IVPB Q1H [facility] Rx#: [id number] Magnesium Sulfate-D5w Pmx 200 1 gm In Dextrose/Water 1 100ml.bag @ 100 mls/hr IVPB Q1H [facility] Rx#: [id number] Oral 800 480 Output: Urine 2425 1520 750 Other: Voiding Method Indwelling Catheter Indwelling Catheter Indwelling Catheter - Exam -GENERAL: The patient is alert and oriented x2-3, not in any acute distress. pale. Forgetful, and has a poor attention span. He is able to follow commands and he does not seem to be in any form of respiratory distress for now. HEENT: Pupils are round and equally reacting to light. EOMI. No scleral icterus. No conjunctival pallor. Normocephalic, atraumatic. No pharyngeal erythema. No thyromegaly. CARDIOVASCULAR: S1 and S2 present. No murmurs, rubs, or gallops. -PULMONARY: Bilateral equal air entry. Bilateral crepitation and scattered wheezing heard bilaterally. ABDOMEN: Soft, nontender, nondistended, normoactive bowel sounds. No palpable organomegaly. MUSCULOSKELETAL: No joint swelling or deformity. -EXTREMITIES: No cyanosis, clubbing,. Bilateral leg edema. He has limitation movement of his right upper extremities, compared to the left side. However he feels generally weak Right shoulder is painful and swollen and warm NEUROLOGICAL: Gross neurological examination did not reveal any focal deficits. He has generalized weakness. His right upper extremity movement is limited by his shoulder problem. Both legs are weak but they look symmetrical. Cranial ne rves are grossly intact. Sensation is intact. Meningeal signs are absent SKIN: No rashes.Examination of the skin revealed no evidence of significant rashes, suspicious appearing nevi or other concerning lesions. - Labs CBC & Chem 7: 12/26/18 04:34 12/26/18 04:34 Labs: Abnormal Lab Results - Last 24 Hours (Table) 10/27/18 12/25/18 12/26/18 Range/Units 17:05 20:53 04:34 WBC 11.5 H (3.8-10.6) k/uL RBC 2.94 L (4.30-5.90) m/uL Hgb 8.7 L (13.0-17.5) gm/dL Hct 27.5 L (39.0-53.0) % RDW 16.5 H (11.5-15.5) % Plt Count 589 H (150-450) k/uL Neutrophils # 8.7 H (1.3-7.7) k/uL Haptoglobin 258.0 H (31.2-198.0) mg/dL Sodium (137-145) mmol/L BUN (9-20) mg/dL Creatinine (0.66-1.25) mg/dL POC Glucose (mg/dL) 106 H (75-99) mg/dL Iron 28 L (65-175) ug/dL TIBC 162 L (228-460) ug/dL Ferritin 518.8 H (22.0-322.0) ng/mL Vitamin B12 1682.0 H (200.0-944.0) pg/mL U Random Total Protein (<12) mg/dL Free [place] LC, Quant 41.80 H (0.33-1.94) mg/dL Free [place] LC, Quant 38.80 H (0.57-2.63) mg/dL 12/26/18 12/26/18 12/26/18 Range/Units 04:34 04:40 10:16 WBC (3.8-10.6) k/uL RBC (4.30-5.90) m/uL Hgb (13.0-17.5) gm/dL Hct (39.0-53.0) % RDW (11.5-15.5) % Plt Count (150-450) k/uL Neutrophils # (1.3-7.7) k/uL Haptoglobin (31.2-198.0) mg/dL Sodium 136 L (137-145) mmol/L BUN 61 H (9-20) mg/dL Creatinine 3.02 H (0.66-1.25) mg/dL POC Glucose (mg/dL) (75-99) mg/dL Iron 44 L (65-175) ug/dL TIBC 162 L (228-460) ug/dL Ferritin 545.2 H (22.0-322.0) ng/mL Vitamin B12 (200.0-944.0) pg/mL U Random Total Protein 84 H (<12) mg/dL Free [place] LC, Quant (0.33-1.94) mg/dL Free Lambda LC, Quant (0.57-2.63) mg/dL 12/26/18 Range/Units 12:21 WBC (3.8-10.6) k/uL RBC (4.30-5.90) m/uL Hgb (13.0-17.5) gm/dL Hct (39.0-53.0) % RDW (11.5-15.5) % Plt Count (150-450) k/uL Neutrophils # (1.3-7.7) k/uL Haptoglobin (31.2-198.0) mg/dL Sodium (137-145) mmol/L BUN (9-20) mg/dL Creatinine (0.66-1.25) mg/dL POC Glucose (mg/dL) 106 H (75-99) mg/dL Iron (65-175) ug/dL TIBC (228-460) ug/dL Ferritin (22.0-322.0) ng/mL Vitamin B12 (200.0-944.0) pg/mL U Random Total Protein (<12) mg/dL Free [place] LC, Quant (0.33-1.94) mg/dL Free [place]ambda LC, Quant (0.57-2.63) mg/dL Microbiology - Last 24 Hours (Table) 12/24/18 15:18 Urine Culture - Final Urine,Catheterized Assessment and Plan Plan: 1 generalized weakness, multifactorial 2 left lower extremity femoral DVT, awaiting an IVC filter placement currently off articulation secondary to hematuria 3 anemia, post transfusion packed RBC. This is likely an acute on top of chronic anemia without evidence of any acute bleeding other than the hematuria that was encountered here in the hospital. 4 CVA with some mild weakness involving the right side and the patient was undergoing rehabilitation at [facility] 5 encephalopathy/confusion, secondary to above 6 chronic lower extremity edema 7 UTI 8 acute on chronic kidney injury 9 diastolic heart failure with preserved LV function with an ejection fraction of 55-60% and the patient is hypertensive heart disease with moderate degree of concentric left ventricular hypertrophy KRISTIAN Would like to confirmed again with vascular surgery regarding this patient's need for a IVC filter. If procedures is not being done, I would like to consider that again trial of anticoagulation monitoring his hemoglobin and hem aturia. Note that the patient's hematuria has improved and currently his urine output is nonbloody and order of 70 mL an hour. Meanwhile, would like to obtain all records from the hospital regarding his previous hospitalization. Continue diuretics for now. Monitor mentation. Monitor renal function. We'll follow.
[2018-12-26 17:08] LABS: Glucose,Whole Blood 102 mg/dL (75-99)
[2018-12-26] MEDS: SODIUM CHLORIDE 0.9% 1,000 ML IV SCH (17:25)
[2018-12-26 18:13] LABS: HIV 1 AB Non-Reactive (Non-Reactive); HIV AB P24 Non-Reactive (Non-Reactive); HIV P24 AG Non-Reactive (Non-Reactive)
--- NOTE | 2018-12-26 19:22 | P.PN ---
Subjective This is a pleasant 68 years old male with past medical history of congestive heart failure, atrial fibrillation, hypertension, hyperlipidemia, syncope, hypothyroidism, dysphagia. Patient is never been in this hospital before and there is no records or previous labs for him. He was sent from his ECF for generalized weakness. Patient himself said he is poor historian, his fully awake and oriented but he has memory difficulty which could be part of his dementia or metabolic encephalopathy. Patient denies chest pain however he reports some breathing difficulty although he does not use his accessory muscles. He denies abdominal pain or tenderness. No nausea vomiting. He had regular bowel movements. He denies urinary complaints and he cannot remember if he has kidney disease. He has difficulty moving his right upper extremity and his right shoulder looks painful and swollen. Patient states that he was in ECF for 3 weeks, he could not remember why he was in the hospital before that but he states that he had stroke with right-sided weakness In the emergency room patient was found to have creatinine of 3.0 with no previous records to compare. Potassium 7.0, Came down with therapy to 6.7. Hemoglobin of 7 In the emergency room he got insulin 10 units with D50 and insulin 10 U x I, sodium bicarb and calcium gluconate 1 g, also patient got 1 unit of blood transfusion as emergency however when he was awake he gave permission to give a blood transfusion. Risks benefits and alternatives are explained to the patient and he agrees. Vitals shows mild bradycardia in mid 50s. Rest of vitals are stable. Patient has leukocytosis of 14.4, hemoglobin of 7.0, platelets 707. Potassium elevated 7 and 6.7. Sugar is controlled, proBNP is elevated at 23,000, liver enzymes not elevated. Troponin is negative. EKG showing normal sinus rhythm at [address]-T abnormalities. QTC 375. Chest x-ray showing bilateral pleural effusions and interstitial pulmonary edema. UA is suspicious for infection. Urine culture is ordered 12/25/2018 Patient remains in the ICU as overflow bed. He is feels a little better. Denied chest pain however he has some dyspnea. His still has right arm swelling and right shoulder swelling. Bilateral leg swelling. Vitals stable but he is bradycardic. He is saturating 95 on room air. He still has Roberts catheter with hematuria. His WBC today is 12.1. Hemoglobin 8.5. INR 1.2. Creatinine 3.0 and potassium 5.7. Patient has Doppler of the lower extremity showing left DVT. I discussed the case with vascular surgery yesterday and Dr. Matute. Patient could not tolerate heparin and was stopped. Patient received blood transfusion and his hemoglobin and vitals are stable this morning. Patient is a started on iron pills. Her consult is our following the case 12/26/18 pt feels little better today he was sitting in bed fully awake and oriented to the surrounding, he did not have specific complaint. pt still has roberts cath in place and his hematuria is clearing up , his urine today was almost yellow in color. vascular and pulmonary/critical care input is appreciated. pt might need IVC filter . CONSTITUTIONAL: No fever. HEENT: No recent visual problems or hearing problems. Denied any sore throat. CARDIOVASCULAR: no syncope. PULMONARY: no hemoptysis. GASTROINTESTINAL: No diarrhea, no nausea, no vomiting, no abdominal pain. Normoactive bowel sounds. NEUROLOGICAL: No headaches, no numbness. HEMATOLOGICAL: Denies any bleeding or petechiae. ENDOCRINE: Denies any polyuria or polydipsia. Medication: Tylenol, ceftriaxone, Depakote, ferrous sulfate, Lasix, Objective - Vital Signs Vital signs: Vital Signs Temp 97 F L 12/26/18 16:00 Pulse 61 12/26/18 19:00 Resp 14 12/26/18 19:00 BP 167/81 12/26/18 19:00 Pulse Ox 97 12/26/18 19:00 Intake & Output 12/26/18 12/26/18 12/27/18 06:59 18:59 06:59 Intake Total 920 1790 10 Output Total 1520 1205 100 Balance -600 585 -90 Weight 84.9 kg 84.9 kg Intake: IV 120 110 10 Sodium Chloride 0.9% 1, 120 110 10 000 ml @ 20 mls/hr IV . Q24H [facility] Rx#:[id number] Intake, IV Titration 200 Amount Magnesium Sulfate-D5w Pmx 200 1 gm In Dextrose/Water 1 100ml.bag @ 100 mls/hr IVPB Q1H [facility] Rx#: [id number] Oral 800 1480 Output: Urine 1520 1205 100 Other: Voiding Method Indwelling Catheter Indwelling Catheter # Bowel Movements 1 - Exam -GENERAL: The patient is alert and oriented x3, not in any acute distress. pale. Forgetful HEENT: Pupils are round and equally reacting to light. EOMI. No scleral icterus. No conjunctival pallor. Normocephalic, atraumatic. No pharyngeal erythema. No thyromegaly. CARDIOVASCULAR: S1 and S2 present. No murmurs, rubs, or gallops. -PULMONARY: Bilateral equal air entry. Bilateral crepitation and scattered wheezing.. ABDOMEN: Soft, nontender, nondistended, normoactive bowel sounds. No palpable organomegaly. MUSCULOSKELETAL: No joint swelling or deformity. -EXTREMITIES: No cyanosis, clubbing,. Bilateral leg edema. He has limitation movement of his right upper extremities, compared to the left side. However he feels generally weak Right shoulder is painful and swollen and warm NEUROLOGICAL: Gross neurological examination did not reveal any focal deficits. He has generalized weakness. His right upper extremity movement is limited by his shoulder problem. Both legs are weak but they look symmetrical. Cranial nerves are grossly intact. Sensation is intact. Meningeal signs are absent SKIN: No rashes. - Labs CBC & Chem 7: 12/26/18 04:34 12/26/18 04:34 Labs: Abnormal Lab Results - Last 24 Hours (Table) 10/27/18 12/25/18 12/26/18 Range/Units 17:05 20:53 04:34 WBC 11.5 H (3.8-10.6) k/uL RBC 2.94 L (4.30-5.90) m/uL Hgb 8.7 L (13.0-17.5) gm/dL Hct 27.5 L (39.0-53.0) % RDW 16.5 H (11.5-15.5) % Plt Count 589 H (150-450) k/uL Neutrophils # 8.7 H (1.3-7.7) k/uL Haptoglobin 258.0 H (31.2-198.0) mg/dL Sodium (137-145) mmol/L BUN (9-20) mg/dL Creatinine (0.66-1.25) mg/dL POC Glucose (mg/dL) 106 H (75-99) mg/dL Iron 28 L (65-175) ug/dL TIBC 162 L (228-460) ug/dL Ferritin 518.8 H (22.0-322.0) ng/mL Vitamin B12 1682.0 H (200.0-944.0) pg/mL U Random Total Protein (<12) mg/dL Free [place] LC, Quant 41.80 H (0.33-1.94) mg/dL Free Lambda LC, Quant 38.80 H (0.57-2.63) mg/dL 12/26/18 12/26/18 12/26/18 Range/Units 04:34 04:40 10:16 WBC (3.8-10.6) k/uL RBC (4.30-5.90) m/uL Hgb (13.0-17.5) gm/dL Hct (39.0-53.0) % RDW (11.5-15.5) % Plt Count (150-450) k/uL Neutrophils # (1.3-7.7) k/uL Haptoglobin (31.2-198.0) mg/dL Sodium 136 L (137-145) mmol/L BUN 61 H (9-20) mg/dL Creatinine 3.02 H (0.66-1.25) mg/dL POC Glucose (mg/dL) (75-99) mg/dL Iron 44 L (65-175) ug/dL TIBC 162 L (228-460) ug/dL Ferritin 545.2 H (22.0-322.0) ng/mL Vitamin B12 (200.0-944.0) pg/mL U Random Total Protein 84 H (<12) mg/dL Free [place] LC, Quant (0.33-1.94) mg/dL Free Lambda LC, Quant (0.57-2.63) mg/dL 12/26/18 12/26/18 Range/Units 12:21 16:57 WBC (3.8-10.6) k/uL RBC (4.30-5.90) m/uL Hgb (13.0-17.5) gm/dL Hct (39.0-53.0) % RDW (11.5-15.5) % Plt Count (150-450) k/uL Neutrophils # (1.3-7.7) k/uL Haptoglobin (31.2-198.0) mg/dL Sodium (137-145) mmol/L BUN (9-20) mg/dL Creatinine (0.66-1.25) mg/dL POC Glucose (mg/dL) 106 H 102 H (75-99) mg/dL Iron (65-175) ug/dL TIBC (228-460) ug/dL Ferritin (22.0-322.0) ng/mL Vitamin B12 (200.0-944.0) pg/mL U Random Total Protein (<12) mg/dL Free [place] LC, Quant (0.33-1.94) mg/dL Free Lambda LC, Quant (0.57-2.63) mg/dL Microbiology - Last 24 Hours (Table) 12/24/18 15:18 Urine Culture - Final Urine,Catheterized Assessment and Plan Assessment: Acute kidney injury, rule out obstructive lesion per nephrology recommendation. Possible cardiorenal syndrome Hyperkalemia, improving Possible acute DVT Anemia. Hemoglobin stable interstitial edema with bilateral pleural effusion. Check echocardiogram for possible cardiac causes Urinary tract infection Bilateral leg swelling Right shoulder pain and swelling, with right upper extremity edema Possible metabolic encephalopathy, given his multiple comorbidities and infection History of stroke with mild right hemiparesis as per patient Plan: This is a pleasant 68 years old male who presents with several problems including UTI, hyperkalemia and acute renal failure, and interstitial edema, right shoulder swelling. Patient admitted to the intensive care unit. Patient already is been evaluated by saw offbearer, bus assistant has been consulted by emergency room team. Patient is currently on Lasix. Call orthopedic consult is appreciated , most pt has right shoulder degenerative dis, has DVT of lower ext on Doppler but negative for clot in right upper extremity. Monitor potassium level and treated accordingly. We will do anemia workup. echocardiogram EF 55%. urine culture is negative for infection Labs and medication were reviewed.. Continue same treatment. Continue with symptomatic treatment. Resume home medication. Monitor lytes and vitals. DVT and GI prophylaxis. Further recommendations of the clinical course of the patient DVT prophylaxis: no heparin GI Prophylaxis: Ppi Prognosis is guarded
[2018-12-26 20:35] LABS: Glucose,Whole Blood 111 mg/dL (75-99)
[2018-12-27 04:41] LABS: Anisocytosis Slight; Basophils % (A) 0 %; Eosinophils # (A) 0.3 k/uL (0-0.7); Eosinophils % (A) 2 %; HCT 25.9 % (39.0-53.0); HGB 8.3 gm/dL (13.0-17.5); Lymphocytes # (A) 1.6 k/uL (1.0-4.8); Lymphocytes % (A) 15 %; MCH 29.8 pg (25.0-35.0); MCV 93.3 fL (80.0-100.0); Mean Platelet Volume 7.2; Monocytes # (A) 0.7 k/uL (0-1.0); Monocytes % (A) 7 %; Neutrophils # (A) 7.9 k/uL (1.3-7.7); Neutrophils % (A) 74 %; Platelet Count 622 k/uL (150-450); RBC 2.78 m/uL (4.30-5.90); RDW 16.3 % (11.5-15.5); WBC 10.6 k/uL (3.8-10.6)
[2018-12-27 04:49] LABS: Potassium 3.8 mmol/L (3.5-5.1)
[2018-12-27] MEDS ORDERED: Potassium Replacement Protocol 1 EACH MISC MISCELLANE PRN (06:15)
[2018-12-27 06:44] LABS: Glucose,Whole Blood 77 mg/dL (75-99)
[2018-12-27] MEDS ORDERED: POTASSIUM CHLORIDE ER 20 MEQ TAB.ER PO SCH (07:00)
--- NOTE | 2018-12-27 07:42 | P.PN ---
Subjective Progress Note Date: 12/27/18 Principal diagnosis: Acute renal failure This is a 68-year-old gentleman who was transferred from extended care facility to the hospital with a change in mental status. The patient himself is a poor historian and he was slightly confused. He was found to be hyperkalemic with a cute renal failure and volume overload. He was started on Lasix with improvement in the with potassium. On follow-up with him today, 12/27/2018, his mentation seems to be slightly better. Hemodynamically he is stable and he has been maintaining normal sinus rhythm. He was diagnosed with DVT of the left lower extremity and he was started on heparin IV but he developed severe hematuria and severe anemia requiring blood transfusion and subsequently the heparin was stopped and the patient is going to undergo an IVC filter placement. Beside that the potassium continues to be within normal limits but the creatinine continues to be around 3 and he continues to be on Lasix IV and followed by the nephrology service. The echocardiogram revealed normal LV function with mild MR and mild TR. Objective - Vital Signs Vital signs: Vital Signs Temp 97.5 F L 12/27/18 04:00 Pulse 58 L 12/27/18 07:00 Resp 13 12/27/18 07:00 BP 156/74 12/27/18 07:00 Pulse Ox 88 L 12/27/18 07:00 Intake & Output 12/26/18 12/27/18 12/27/18 18:59 06:59 18:59 Intake Total 1790 593 10 Output Total 1205 2014 125 Balance 585 -4972 -115 Weight 84.9 kg 84.9 kg Intake: IV 110 120 10 Sodium Chloride 0.9% 1, 110 120 10 000 ml @ 20 mls/hr IV . Q24H [facility] Rx#:[id number] Intake, IV Titration 200 Amount Magnesium Sulfate-D5w Pmx 200 1 gm In Dextrose/Water 1 100ml.bag @ 100 mls/hr IVPB Q1H [facility] Rx#: [id number] Oral 1480 473 Output: Urine 1205 2014 125 Other: Voiding Method Indwelling Catheter Indwelling Catheter # Bowel Movements 1 - Constitutional General appearance: Present: no acute distress - Respiratory Respiratory: bilateral: diminished - Cardiovascular Rhythm: regular Heart sounds: normal: S1, S2 - Labs CBC & Chem 7: 12/27/18 04:24 12/27/18 04:24 Labs: Abnormal Lab Results - Last 24 Hours (Table) 10/27/18 12/26/18 12/26/18 Range/Units 17:05 04:40 10:16 RBC (4.30-5.90) m/uL Hgb (13.0-17.5) gm/dL Hct (39.0-53.0) % RDW (11.5-15.5) % Plt Count (150-450) k/uL Neutrophils # (1.3-7.7) k/uL Haptoglobin 258.0 H (31.2-198.0) mg/dL Sodium (137-145) mmol/L BUN (9-20) mg/dL Creatinine (0.66-1.25) mg/dL POC Glucose (mg/dL) (75-99) mg/dL Calcium (8.4-10.2) mg/dL Iron 28 L 44 L (65-175) ug/dL TIBC 162 L 162 L (228-460) ug/dL Ferritin 518.8 H 545.2 H (22.0-322.0) ng/mL Vitamin B12 1682.0 H (200.0-944.0) pg/mL U Random Total Protein 84 H (<12) mg/dL Free [place] LC, Quant 41.80 H (0.33-1.94) mg/dL Free Lambda LC, Quant 38.80 H (0.57-2.63) mg/dL 12/26/18 12/26/18 12/26/18 Range/Units 12:21 16:57 20:33 RBC (4.30-5.90) m/uL Hgb (13.0-17.5) gm/dL Hct (39.0-53.0) % RDW (11.5-15.5) % Plt Count (150-450) k/uL Neutrophils # (1.3-7.7) k/uL Haptoglobin (31.2-198.0) mg/dL Sodium (137-145) mmol/L BUN (9-20) mg/dL Creatinine (0.66-1.25) mg/dL POC Glucose (mg/dL) 106 H 102 H 111 H (75-99) mg/dL Calcium (8.4-10.2) mg/dL Iron (65-175) ug/dL TIBC (228-460) ug/dL Ferritin (22.0-322.0) ng/mL Vitamin B12 (200.0-944.0) pg/mL U Random Total Protein (<12) mg/dL Free [place] LC, Quant (0.33-1.94) mg/dL Free Lambda LC, Quant (0.57-2.63) mg/dL 12/27/18 12/27/18 Range/Units 04:24 04:24 RBC 2.78 L (4.30-5.90) m/uL Hgb 8.3 L (13.0-17.5) gm/dL Hct 25.9 L (39.0-53.0) % RDW 16.3 H (11.5-15.5) % Plt Count 622 H (150-450) k/uL Neutrophils # 7.9 H (1.3-7.7) k/uL Haptoglobin (31.2-198.0) mg/dL Sodium 136 L (137-145) mmol/L BUN 72 H (9-20) mg/dL Creatinine 3.23 H (0.66-1.25) mg/dL POC Glucose (mg/dL) (75-99) mg/dL Calcium 8.0 L (8.4-10.2) mg/dL Iron (65-175) ug/dL TIBC (228-460) ug/dL Ferritin (22.0-322.0) ng/mL Vitamin B12 (200.0-944.0) pg/mL U Random Total Protein (<12) mg/dL Free [place] LC, Quant (0.33-1.94) mg/dL Free [place]ambda LC, Quant (0.57-2.63) mg/dL Assessment and Plan Assessment: Assessment #1 change in mental status #2 acute renal failure #3 congestive heart failure secondary to diastolic dysfunction #4 left lower extremities DVT #5 hematuria #6 anemia, blood loss anemia Plan #1 the heparin was stopped #2 the patient is going to have an IVC filter #3 continue current medical regimen #4 nephrology continues to follow-up with the patient
[2018-12-27] MEDS ORDERED: HEPARIN SODIUM,PORCINE 5,000 UNIT/ML 1 ML VIAL IV PRN (09:08)
[2018-12-27] MEDS ORDERED: HEPARIN SOD,PORK IN 0.45% NACL 25,000 UNIT in 0.45% NACL 1 250ML.BAG IV SCH (09:15)
[2018-12-27] MEDS: FERROUS SULFATE 325 MG TAB PO SCH ×2 (09:37→15:54)
[2018-12-27] MEDS: SODIUM CHLORIDE 0.9% 1,000 ML IV SCH (09:37)
[2018-12-27] MEDS: DIVALPROEX ER 500 MG TAB.ER.24H PO SCH ×2 (09:37→21:13)
[2018-12-27] MEDS: MAGNESIUM OXIDE 400 MG TAB PO SCH (09:37)
--- NOTE | 2018-12-27 10:06 | P.PN ---
Subjective Patient seen in follow-up for acute kidney injury. Unknown baseline renal function. Renal function a little worse today which is due to diuresis. Creatinine 3.23 today. He is maintained on Lasix 60 mg IV 2 times daily. He is nonoliguric. Dyspnea is improved. Oral intake is fair. No vomiting or diarrhea. Vital signs are stable. General: The patient appeared well nourished and normally developed. HEENT: Head exam is unremarkable. Neck is without jugular venous distension. LUNGS: Breath sounds decreased. HEART: Rate and Rhythm are regular. First and second heart sounds normal. No murmurs, rubs or gallops. ABDOMEN: Abdominal exam reveals normal bowel sounds. Non-tender and non- distended. No evidence of peritonitis. EXTREMITITES: Trace edema. Objective - Vital Signs Vital signs: Vital Signs Temp 98.5 F 12/27/18 08:00 Pulse 70 12/27/18 09:00 Resp 16 12/27/18 09:00 BP 153/80 12/27/18 09:00 Pulse Ox 96 12/27/18 09:00 Intake & Output 12/26/18 12/27/18 12/27/18 18:59 06:59 18:59 Intake Total 1790 593 30 Output Total 1205 2014 365 Balance 844 -2644 -376 Weight 84.9 kg 84.9 kg Intake: IV 110 120 30 Sodium Chloride 0.9% 1, 110 120 30 000 ml @ 20 mls/hr IV . Q24H SAMANTHA Rx#:[id number] Intake, IV Titration 200 Amount Magnesium Sulfate-D5w Pmx 200 1 gm In Dextrose/Water 1 100ml.bag @ 100 mls/hr IVPB Q1H SAMANTHA Rx#: [id number] Oral 1480 473 Output: Urine 1205 2014 Other: Voiding Method Indwelling Catheter Indwelling Catheter Indwelling Catheter # Bowel Movements 1 - Labs CBC & Chem 7: 12/27/18 04:24 12/27/18 04:24 Labs: Abnormal Lab Results - Last 24 Hours (Table) 10/27/18 12/26/18 12/26/18 Range/Units 17:05 04:40 10:16 RBC (4.30-5.90) m/uL Hgb (13.0-17.5) gm/dL Hct (39.0-53.0) % RDW (11.5-15.5) % Plt Count (150-450) k/uL Neutrophils # (1.3-7.7) k/uL Haptoglobin 258.0 H (31.2-198.0) mg/dL Sodium (137-145) mmol/L BUN (9-20) mg/dL Creatinine (0.66-1.25) mg/dL POC Glucose (mg/dL) (75-99) mg/dL Calcium (8.4-10.2) mg/dL Iron 28 L 44 L (65-175) ug/dL TIBC 162 L 162 L (228-460) ug/dL Ferritin 518.8 H 545.2 H (22.0-322.0) ng/mL Vitamin B12 1682.0 H (200.0-944.0) pg/mL U Random Total Protein 84 H (<12) mg/dL Free [place] LC, Quant 41.80 H (0.33-1.94) mg/dL Free [place]ambda LC, Quant 38.80 H (0.57-2.63) mg/dL 12/26/18 12/26/18 12/26/18 Range/Units 12:21 16:57 20:33 RBC (4.30-5.90) m/uL Hgb (13.0-17.5) gm/dL Hct (39.0-53.0) % RDW (11.5-15.5) % Plt Count (150-450) k/uL Neutrophils # (1.3-7.7) k/uL Haptoglobin (31.2-198.0) mg/dL Sodium (137-145) mmol/L BUN (9-20) mg/dL Creatinine (0.66-1.25) mg/dL POC Glucose (mg/dL) 106 H 102 H 111 H (75-99) mg/dL Calcium (8.4-10.2) mg/dL Iron (65-175) ug/dL TIBC (228-460) ug/dL Ferritin (22.0-322.0) ng/mL Vitamin B12 (200.0-944.0) pg/mL U Random Total Protein (<12) mg/dL Free [place] LC, Quant (0.33-1.94) mg/dL Free [place]ambda LC, Quant (0.57-2.63) mg/dL 12/27/18 12/27/18 Range/Units 04:24 04:24 RBC 2.78 L (4.30-5.90) m/uL Hgb 8.3 L (13.0-17.5) gm/dL Hct 25.9 L (39.0-53.0) % RDW 16.3 H (11.5-15.5) % Plt Count 622 H (150-450) k/uL Neutrophils # 7.9 H (1.3-7.7) k/uL Haptoglobin (31.2-198.0) mg/dL Sodium 136 L (137-145) mmol/L BUN 72 H (9-20) mg/dL Creatinine 3.23 H (0.66-1.25) mg/dL POC Glucose (mg/dL) (75-99) mg/dL Calcium 8.0 L (8.4-10.2) mg/dL Iron (65-175) ug/dL TIBC (228-460) ug/dL Ferritin (22.0-322.0) ng/mL Vitamin B12 (200.0-944.0) pg/mL U Random Total Protein (<12) mg/dL Free [place] LC, Quant (0.33-1.94) mg/dL Free Lambda LC, Quant (0.57-2.63) mg/dL Assessment and Plan Plan: Assessment: 1. Acute kidney injury secondary to ATN secondary to cardiorenal syndrome. Renal function a little worse today - creatinine 3.23 today. Unknown baseline renal function. No evidence of hydronephrosis noted on renal ultrasound. 2. Volume overload secondary to CHF. Improved. 3. Diastolic CHF. 4. Left lower extremity DVT. Currently not on anticoagulation as he developed hematuria and anemia. ?IVC filter. 5. Proteinuria. Rule out GN. Serologies negative so far. Urine eosinophils mildly positive at 1%. 6. Hypomagnesemia secondary to diuresis. S/p replacement. Plan: I will change Lasix to 40 mg orally twice daily. Follow-up serologies. Continue to monitor renal function and urine output. Repeat UA and urine eosinophils. Patient will need a kidney biopsy for definitive diagnosis down the road.
[2018-12-27 10:43] LABS: Appearance,Urine Cloudy (Clear); Bacteria,Urine Rare /hpf; Bilirubin,Urine Negative (Negative); Blood,Urine Large (Negative); Color,Urine Light Red; Glucose,Urine (UA) Negative (Negative); Ketones,Urine Negative (Negative); Leukocyte Esterase,Urine Large (Negative); Mucus,Urine Few /hpf; Nitrite,Urine Negative (Negative); Protein,Urine 1+ (Negative); RBC,Urine >182 /hpf (0-5); Specific Gravity,Urine 1.013 (1.001-1.035); Urobilinogen,Urine <2.0 mg/dL (<2.0); WBC,Urine 58 /hpf (0-5)
--- NOTE | 2018-12-27 10:50 | P.PN ---
Subjective This is a pleasant 68 years old male with past medical history of congestive heart failure, atrial fibrillation, hypertension, hyperlipidemia, syncope, hypothyroidism, dysphagia. Patient is never been in this hospital before and there is no records or previous labs for him. He was sent from his ECF for generalized weakness. Patient himself said he is poor historian, his fully awake and oriented but he has memory difficulty which could be part of his dementia or metabolic encephalopathy. Patient denies chest pain however he reports some breathing difficulty although he does not use his accessory muscles. He denies abdominal pain or tenderness. No nausea vomiting. He had regular bowel movements. He denies urinary complaints and he cannot remember if he has kidney disease. He has difficulty moving his right upper extremity and his right shoulder looks painful and swollen. Patient states that he was in ECF for 3 weeks, he could not remember why he was in the hospital before that but he states that he had stroke with right-sided weakness In the emergency room patient was found to have creatinine of 3.0 with no previous records to compare. Potassium 7.0, Came down with therapy to 6.7. Hemoglobin of 7 In the emergency room he got insulin 10 units with D50 and insulin 10 U x I, sodium bicarb and calcium gluconate 1 g, also patient got 1 unit of blood transfusion as emergency however when he was awake he gave permission to give a blood transfusion. Risks benefits and alternatives are explained to the patient and he agrees. Vitals shows mild bradycardia in mid 50s. Rest of vitals are stable. Patient has leukocytosis of 14.4, hemoglobin of 7.0, platelets 707. Potassium elevated 7 and 6.7. Sugar is controlled, proBNP is elevated at 23,000, liver enzymes not elevated. Troponin is negative. EKG showing normal sinus rhythm at [address]-T abnormalities. QTC 375. Chest x-ray showing bilateral pleural effusions and interstitial pulmonary edema. UA is suspicious for infection. Urine culture is ordered 12/25/2018 Patient remains in the ICU as overflow bed. He is feels a little better. Denied chest pain however he has some dyspnea. His still has right arm swelling and right shoulder swelling. Bilateral leg swelling. Vitals stable but he is bradycardic. He is saturating 95 on room air. He still has Roberts catheter with hematuria. His WBC today is 12.1. Hemoglobin 8.5. INR 1.2. Creatinine 3.0 and potassium 5.7. Patient has Doppler of the lower extremity showing left DVT. I discussed the case with vascular surgery yesterday and Dr. Matute. Patient could not tolerate heparin and was stopped. Patient received blood transfusion and his hemoglobin and vitals are stable this morning. Patient is a started on iron pills. Her consult is our following the case 12/26/18 pt feels little better today he was sitting in bed fully awake and oriented to the surrounding, he did not have specific complaint. pt still has roberts cath in place and his hematuria is clearing up , his urine today was almost yellow in color. vascular and pulmonary/critical care input is appreciated. pt might need IVC filter . 12/10/2018 Patient sitting in bed with no chest pain or dyspnea. He thinks he is improving. He is a stable hemodynamically. He denies any pain. Roberts catheter is in place. His urine is pink today again after it was clearing up yesterday. Some of call urology consult. Patient is being followed by pulmonary/critical care team and vascular surgery team for he has DVT. Patient has been evaluated by IVC filter. There is contraindication to heparin now, as heparin was started first day he came in and his hemoglobin dropped in one hour from 8.2 down to 7, and he developed worsening hematuria at that time and we have to give him another unit of blood transfusion at that time, his hemoglobin currently is a stable at this 0.3, case was discussed with Dr. Matute. And his urine culture is negative, although is on antibiotic his leukocytosis is improving and his white cell count is normal today at 10.6K. Creatinine is 3.2. Sodium 136. Case has been followed also by hematology and nephrology and their Workup as ordered. Discussed with staff CONSTITUTIONAL: No fever. HEENT: No recent visual problems or hearing problems. Denied any sore throat. CARDIOVASCULAR: no syncope. PULMONARY: no hemoptysis. GASTROINTESTINAL: No diarrhea, no nausea, no vomiting, no abdominal pain. Normoactive bowel sounds. NEUROLOGICAL: No headaches, no numbness. HEMATOLOGICAL: Denies any bleeding or petechiae. ENDOCRINE: Denies any polyuria or polydipsia. Medication: Tylenol, ceftriaxone, Depakote, ferrous sulfate, Lasix Objective - Vital Signs Vital signs: Vital Signs Temp 98.5 F 12/27/18 08:00 Pulse 63 04/30/19 10:00 Resp 16 12/27/18 10:00 BP 155/83 12/27/18 10:00 Pulse Ox 94 L 12/27/18 10:00 Intake & Output 12/26/18 12/27/18 12/27/18 18:59 06:59 18:59 Intake Total 1790 593 260 Output Total 1205 2014 565 Balance 646 -2082 -395 Weight 84.9 kg 84.9 kg Intake: IV 110 120 40 Sodium Chloride 0.9% 1, 110 120 40 000 ml @ 20 mls/hr IV . Q24H SAMANTHA Rx#:[id number] Intake, IV Titration 200 Amount Magnesium Sulfate-D5w Pmx 200 1 gm In Dextrose/Water 1 100ml.bag @ 100 mls/hr IVPB Q1H SAMANTHA Rx#: [id number] Oral 1480 473 220 Output: Urine 1205 2014 565 Other: Voiding Method Indwelling Catheter Indwelling Catheter Indwelling Catheter # Bowel Movements 1 - Exam -GENERAL: The patient is alert and oriented x3, not in any acute distress. pale. Forgetful HEENT: Pupils are round and equally reacting to light. EOMI. No scleral icterus. No conjunctival pallor. Normocephalic, atraumatic. No pharyngeal erythema. No thyromegaly. CARDIOVASCULAR: S1 and S2 present. No murmurs, rubs, or gallops. -PULMONARY: Bilateral equal air entry. Bilateral crepitation and scattered wheezing.. ABDOMEN: Soft, nontender, nondistended, normoactive bowel sounds. No palpable organomegaly. MUSCULOSKELETAL: No joint swelling or deformity. -EXTREMITIES: No cyanosis, clubbing,. Bilateral leg edema. He has limitation movement of his right upper extremities, compared to the left side. However he feels generally weak Right shoulder is painful and swollen and warm NEUROLOGICAL: Gross neurological examination did not reveal any focal deficits. He has generalized weakness. His right upper extremity movement is limited by h is shoulder problem. Both legs are weak but they look symmetrical. Cranial nerves are grossly intact. Sensation is intact. Meningeal signs are absent SKIN: No rashes. - Labs CBC & Chem 7: 12/27/18 04:24 12/27/18 04:24 Labs: Abnormal Lab Results - Last 24 Hours (Table) 10/27/18 12/26/18 12/26/18 Range/Units 17:05 04:40 10:16 RBC (4.30-5.90) m/uL Hgb (13.0-17.5) gm/dL Hct (39.0-53.0) % RDW (11.5-15.5) % Plt Count (150-450) k/uL Neutrophils # (1.3-7.7) k/uL Haptoglobin 258.0 H (31.2-198.0) mg/dL Sodium (137-145) mmol/L BUN (9-20) mg/dL Creatinine (0.66-1.25) mg/dL POC Glucose (mg/dL) (75-99) mg/dL Calcium (8.4-10.2) mg/dL Iron 28 L 44 L (65-175) ug/dL TIBC 162 L 162 L (228-460) ug/dL Ferritin 518.8 H 545.2 H (22.0-322.0) ng/mL Vitamin B12 1682.0 H (200.0-944.0) pg/mL U Random Total Protein 84 H (<12) mg/dL Free [place] LC, Quant 41.80 H (0.33-1.94) mg/dL Free Lambda LC, Quant 38.80 H (0.57-2.63) mg/dL 12/26/18 12/26/18 12/26/18 Range/Units 12:21 16:57 20:33 RBC (4.30-5.90) m/uL Hgb (13.0-17.5) gm/dL Hct (39.0-53.0) % RDW (11.5-15.5) % Plt Count (150-450) k/uL Neutrophils # (1.3-7.7) k/uL Haptoglobin (31.2-198.0) mg/dL Sodium (137-145) mmol/L BUN (9-20) mg/dL Creatinine (0.66-1.25) mg/dL POC Glucose (mg/dL) 106 H 102 H 111 H (75-99) mg/dL Calcium (8.4-10.2) mg/dL Iron (65-175) ug/dL TIBC (228-460) ug/dL Ferritin (22.0-322.0) ng/mL Vitamin B12 (200.0-944.0) pg/mL U Random Total Protein (<12) mg/dL Free [place] LC, Quant (0.33-1.94) mg/dL Free Lambda LC, Quant (0.57-2.63) mg/dL 12/27/18 12/27/18 Range/Units 04:24 04:24 RBC 2.78 L (4.30-5.90) m/uL Hgb 8.3 L (13.0-17.5) gm/dL Hct 25.9 L (39.0-53.0) % RDW 16.3 H (11.5-15.5) % Plt Count 622 H (150-450) k/uL Neutrophils # 7.9 H (1.3-7.7) k/uL Haptoglobin (31.2-198.0) mg/dL Sodium 136 L (137-145) mmol/L BUN 72 H (9-20) mg/dL Creatinine 3.23 H (0.66-1.25) mg/dL POC Glucose (mg/dL) (75-99) mg/dL Calcium 8.0 L (8.4-10.2) mg/dL Iron (65-175) ug/dL TIBC (228-460) ug/dL Ferritin (22.0-322.0) ng/mL Vitamin B12 (200.0-944.0) pg/mL U Random Total Protein (<12) mg/dL Free [place] LC, Quant (0.33-1.94) mg/dL Free Lambda LC, Quant (0.57-2.63) mg/dL Assessment and Plan Assessment: Possible acute DVT Hematuria Acute kidney injury, versus chronic kidney disease Hyperkalemia, resolved Elements of acute blood loss anemia and anemia of chronic disease. Hemoglobin stable interstitial edema with bilateral pleural effusion. Improvement Possible Urinary tract infection Bilateral leg swelling Most likely degenerative joint disease History of stroke with mild right hemiparesis as per patient Plan: This is a pleasant 68 years old male who presents with several problems including hematuria and acute DVT. Patient admitted to the intensive care unit. Patient could not tolerate aspirin once started first day he came in and he blacked through his Roberts catheter. At that time needed blood transfusion. Vascular surgery in case for evaluation for possible IVC filter. Patient already is been evaluated by front desk assistant, bullard machine operator has been consulted by emergency room team. Patient is currently on Lasix. Call orthopedic consult is appreciated , most pt has right shoulder degenerative dis, has DVT of lower ext on Doppler but negative for clot in right upper extremity. Monitor potassium level and treated accordingly. . echocardiogram EF 55%. urine culture is negative for infection Labs and medication were reviewed.. Continue same treatment. Continue with symptomatic treatment. Resume home medication. Monitor lytes and vitals. DVT and GI prophylaxis. Further recommendations of the clinical course of the patient DVT prophylaxis: no heparin GI Prophylaxis: Pepcid Prognosis is guarded
--- NOTE | 2018-12-27 10:53 | P.PN ---
Subjective Progress Note Date: 12/27/18 Principal diagnosis: Anemia Patient seen today in follow-up, his right shoulder severely painful, he is unable to move it, swelling in the arm, negative for DVT, he denies numbness or tingling, he is short of breath with minimal exertion, very weak Objective - Vital Signs Vital signs: Vital Signs Temp 98.5 F 12/27/18 08:00 Pulse 63 12/27/18 10:00 Resp 16 12/27/18 10:00 BP 155/83 12/27/18 10:00 Pulse Ox 94 L 12/27/18 10:00 Intake & Output 12/26/18 12/27/18 12/27/18 18:59 06:59 18:59 Intake Total 1790 593 260 Output Total 1205 2014 565 Balance 564 -1979 -025 Weight 84.9 kg 84.9 kg Intake: IV 110 120 40 Sodium Chloride 0.9% 1, 110 120 40 000 ml @ 20 mls/hr IV . Q24H SAMANTHA Rx#:[id number] Intake, IV Titration 200 Amount Magnesium Sulfate-D5w Pmx 200 1 gm In Dextrose/Water 1 100ml.bag @ 100 mls/hr IVPB Q1H SAMANTHA Rx#: [id number] Oral 1480 473 220 Output: Urine 1205 2014 565 Other: Voiding Method Indwelling Catheter Indwelling Catheter Indwelling Catheter # Bowel Movements 1 - Constitutional General appearance: Present: cooperative, mild distress, thin - EENT Eyes: Present: anicteric sclerae, EOMI ENT: Present: hearing grossly normal - Respiratory Respiratory: bilateral: diminished - Cardiovascular Heart sounds: normal: S1, S2 - Peripheral edema leg Peripheral Edema: bilateral: None - Gastrointestinal General gastrointestinal: Present: normal bowel sounds, soft - Integumentary Integumentary: Present: pale - Neurologic Neurologic Comment(s): Slightly slurred speech, mild right side deficit - Musculoskeletal Musculoskeletal Comment(s): Visible swelling of the right shoulder, active and passive range of motion causes severe pain, warm to the touch, tender to the touch, patient can flex at the elbow and move the hand, no cyanosis Musculoskeletal: Present: generalized weakness, right sided weakness - Psychiatric Psychiatric: Present: A&O x's 3, appropriate affect, intact judgment & insight - Labs CBC & Chem 7: 12/27/18 04:24 12/27/18 04:24 Labs: Abnormal Lab Results - Last 24 Hours (Table) 10/27/18 12/26/18 12/26/18 Range/Units 17:05 04:40 10:16 RBC (4.30-5.90) m/uL Hgb (13.0-17.5) gm/dL Hct (39.0-53.0) % RDW (11.5-15.5) % Plt Count (150-450) k/uL Neutrophils # (1.3-7.7) k/uL Haptoglobin 258.0 H (31.2-198.0) mg/dL Sodium (137-145) mmol/L BUN (9-20) mg/dL Creatinine (0.66-1.25) mg/dL POC Glucose (mg/dL) (75-99) mg/dL Calcium (8.4-10.2) mg/dL Iron 28 L 44 L (65-175) ug/dL TIBC 162 L 162 L (228-460) ug/dL Ferritin 518.8 H 545.2 H (22.0-322.0) ng/mL Vitamin B12 1682.0 H (200.0-944.0) pg/mL U Random Total Protein 84 H (<12) mg/dL Free [place] LC, Quant 41.80 H (0.33-1.94) mg/dL Free Lambda LC, Quant 38.80 H (0.57-2.63) mg/dL 12/26/18 12/26/18 12/26/18 Range/Units 12:21 16:57 20:33 RBC (4.30-5.90) m/uL Hgb (13.0-17.5) gm/dL Hct (39.0-53.0) % RDW (11.5-15.5) % Plt Count (150-450) k/uL Neutrophils # (1.3-7.7) k/uL Haptoglobin (31.2-198.0) mg/dL Sodium (137-145) mmol/L BUN (9-20) mg/dL Creatinine (0.66-1.25) mg/dL POC Glucose (mg/dL) 106 H 102 H 111 H (75-99) mg/dL Calcium (8.4-10.2) mg/dL Iron (65-175) ug/dL TIBC (228-460) ug/dL Ferritin (22.0-322.0) ng/mL Vitamin B12 (200.0-944.0) pg/mL U Random Total Protein (<12) mg/dL Free [place] LC, Quant (0.33-1.94) mg/dL Free Lambda LC, Quant (0.57-2.63) mg/dL 12/27/18 12/27/18 Range/Units 04:24 04:24 RBC 2.78 L (4.30-5.90) m/uL Hgb 8.3 L (13.0-17.5) gm/dL Hct 25.9 L (39.0-53.0) % RDW 16.3 H (11.5-15.5) % Plt Count 622 H (150-450) k/uL Neutrophils # 7.9 H (1.3-7.7) k/uL Haptoglobin (31.2-198.0) mg/dL Sodium 136 L (137-145) mmol/L BUN 72 H (9-20) mg/dL Creatinine 3.23 H (0.66-1.25) mg/dL POC Glucose (mg/dL) (75-99) mg/dL Calcium 8.0 L (8.4-10.2) mg/dL Iron (65-175) ug/dL TIBC (228-460) ug/dL Ferritin (22.0-322.0) ng/mL Vitamin B12 (200.0-944.0) pg/mL U Random Total Protein (<12) mg/dL Free [place] LC, Quant (0.33-1.94) mg/dL Free Lambda LC, Quant (0.57-2.63) mg/dL Assessment and Plan (1) Anemia Narrative/Plan: Anemia workup thus far more suggestive of chronic kidney disease and inflammation. Despite 2 units of blood hemoglobin remains around 8. Hemoglobin 8.3 today, no transfusion necessary. B12 and folate are WNL, ferritin is greater than 500 with a normal saturation and slightly low iron, patient has been initiated on an oral iron supplementation. Significantly elevated [place]/Lambda light chains, immunofixation is still pending. Defer to Nephrology regarding possibility of initiating ISABELLA Current Visit: Yes Status: Acute Priority: High Code(s): D64.9 - ANEMIA, UNSPECIFIED SNOMED Code(s): 124035817 (2) Chronic kidney disease Current Visit: Yes Status: Chronic Priority: Medium Code(s): N18.9 - CHRONIC KIDNEY DISEASE, UNSPECIFIED SNOMED Code(s): 706437327 (3) Thrombocytosis Narrative/Plan: Remains persistently elevated. CRP and Jak2 ordered Current Visit: Yes Status: Acute Priority: High Code(s): D47.3 - ESSENTIAL (HEMORRHAGIC) THROMBOCYTHEMIA SNOMED Code(s): 7037091 Plan: Sed rate was requested due to patient's severely painful joint. Orthopedic notes reviewed. Defer to them for management of the same
[2018-12-27 11:13] LABS: Glucose,Whole Blood 108 mg/dL (75-99)
--- NOTE | 2018-12-27 13:10 | P.PN ---
Subjective Progress Note Date: 12/27/18 On today's evaluation of 12/26/2018, I'm seeing this patient for a follow-up. The patient is and the hospital because of a combination of problems. He presented to us with profound weakness and an acute kidney injury. He was profoundly anemic and he was also found to have a left lower extremity DVT. He was given anticoagulation with IV heparin and that the patient was thought that the patient developed extensive hematuria and for now the plan is to proceed with an IVC filter placement. The patient is a left lower extremity femoral DVT. As far as the anemia, the patient was seen by hematology oncology and the patient was given packed RBC transfusion and the patient received a total of 3 units of packed RBC and the most recent hemoglobin is up to 8.7. The patient's renal function continues to be an. With a creatinine of 3.02 with LDL of 61. The patient was seen by nephrology. He still had some lower extremity edema in the Lasix dose was reduced to 60 mg IV push every 12 hours. He is awake and he is following commands and is able to tolerate his diet. He was admitted to the [facility] following a stroke and he was rehabilitating at [facility] . I'm interested in obtaining all of his records from the hospital to get some more details on his condition. On today's evaluation of 12/27/2018, the patient is hemodynamically stable. The patient is on no anticoagulation and the plan is to proceed with an IVC filter placement today. I discussed this case at length with the primary care team and the vascular surgeon. The patient was apparently having significant amount of hematuria while on anticoagulation. For that reason, an IVC filter was indicated. The procedure will be done this afternoon. I have spoken to the patient and he quite understands the indication for the procedure and he was able to sign a consent after being explained the risks and the benefits of the procedure. For now, the patient has some pink tinged urine output. No fever. No chills. No chest pain. He continues to be quite edematous in all 4 extremities. He is on Lasix. His hemoglobin is stable at 8.3. His creatinine is up to 3.2 and this is consistent with acute kidney injury. [facility] then his creatinine was at one 0.8 at the time of admission and the patient developed an acute kidney injury that was attributed to hydration. Furthermore[facility] for gram- negative septicemia. He was evaluated by urology. His blood culture was positive Proteus mirabilis and the patient was treated with IV Zosyn. For now, the patient is awake and alert. No signs of any respiratory distress. He is on oral Lasix 40 mg by mouth twice a day and he was taken off the IV Lasix by nephrology. He is on empiric antibiotic coverage with a gram of Rocephin on a daily basis. Objective - Vital Signs Vital signs: Vital Signs Temp 97.9 F 12/27/18 12:00 Pulse 56 L 12/27/18 12:00 Resp 14 12/27/18 12:00 BP 156/92 12/27/18 12:00 Pulse Ox 97 12/27/18 12:00 Intake & Output 12/26/18 12/27/18 12/27/18 18:59 06:59 18:59 Intake Total 1790 593 280 Output Total 1205 2014 765 Balance 645 -5835 -782 Weight 84.9 kg 84.9 kg Intake: IV 110 120 60 Sodium Chloride 0.9% 1, 110 120 60 000 ml @ 20 mls/hr IV . Q24H [facility] Rx#:[id number] Intake, IV Titration 200 Amount Magnesium Sulfate-D5w Pmx 200 1 gm In Dextrose/Water 1 100ml.bag @ 100 mls/hr IVPB Q1H [facility] Rx#: [id number] Oral 1480 473 220 Output: Urine 1205 2014 765 Other: Voiding Method Indwelling Catheter Indwelling Catheter Indwelling Catheter # Bowel Movements 1 - Exam -GENERAL: The patient is alert and oriented x3, not in any acute distress. pale. Forgetful, and has a poor attention span. He is able to follow commands and he does not seem to be in any form of respiratory distress for now. HEENT: Pupils are round and equally reacting to light. EOMI. No scleral icterus. No conjunctival pallor. Normocephalic, atraumatic. No pharyngeal erythema. No thyromegaly. CARDIOVASCULAR: S1 and S2 present. No murmurs, rubs, or gallops. -PULMONARY: Bilateral equal air entry. Bilateral crepitation and scattered wheezing heard bilaterally. ABDOMEN: Soft, nontender, nondistended, normoactive bowel sounds. No palpable or ganomegaly. MUSCULOSKELETAL: No joint swelling or deformity. -EXTREMITIES: No cyanosis, clubbing,. Bilateral leg edema. He has limitation movement of his right upper extremities, compared to the left side. However he feels generally weak Right shoulder is painful and swollen and warm NEUROLOGICAL: Gross neurological examination did not reveal any focal deficits. He has generalized weakness. His right upper extremity movement is limited by his shoulder problem. Both legs are weak but they look symmetrical. Cranial nerves are grossly intact. Sensation is intact. Meningeal signs are absent SKIN: No rashes.Examination of the skin revealed no evidence of significant rashes, suspicious appearing nevi or other concerning lesions. - Labs CBC & Chem 7: 12/27/18 04:24 12/27/18 04:24 Labs: Abnormal Lab Results - Last 24 Hours (Table) 10/27/18 12/26/18 12/26/18 Range/Units 17:05 16:57 20:33 RBC (4.30-5.90) m/uL Hgb (13.0-17.5) gm/dL Hct (39.0-53.0) % RDW (11.5-15.5) % Plt Count (150-450) k/uL Neutrophils # (1.3-7.7) k/uL Haptoglobin 258.0 H (31.2-198.0) mg/dL Sodium (137-145) mmol/L BUN (9-20) mg/dL Creatinine (0.66-1.25) mg/dL POC Glucose (mg/dL) 102 H 111 H (75-99) mg/dL Calcium (8.4-10.2) mg/dL Iron 28 L (65-175) ug/dL TIBC 162 L (228-460) ug/dL Ferritin 518.8 H (22.0-322.0) ng/mL C-Reactive Protein (<10.0) mg/L Vitamin B12 1682.0 H (200.0-944.0) pg/mL Urine Protein (Negative) Urine Blood (Negative) Ur Leukocyte Esterase (Negative) Urine RBC (0-5) /hpf Urine WBC (0-5) /hpf Urine Bacteria (None) /hpf Urine Mucus (None) /hpf U Random Total Protein (<12) mg/dL Free [place] LC, Quant 41.80 H (0.33-1.94) mg/dL Free [place] LC, Quant 38.80 H (0.57-2.63) mg/dL 12/27/18 12/27/18 12/27/18 Range/Units 04:24 04:24 09:15 RBC 2.78 L (4.30-5.90) m/uL Hgb 8.3 L (13.0-17.5) gm/dL Hct 25.9 L (39.0-53.0) % RDW 16.3 H (11.5-15.5) % Plt Count 622 H (150-450) k/uL Neutrophils # 7.9 H (1.3-7.7) k/uL Haptoglobin (31.2-198.0) mg/dL Sodium 136 L (137-145) mmol/L BUN 72 H (9-20) mg/dL Creatinine 3.23 H (0.66-1.25) mg/dL POC Glucose (mg/dL) (75-99) mg/dL Calcium 8.0 L (8.4-10.2) mg/dL Iron (65-175) ug/dL TIBC (228-460) ug/dL Ferritin (22.0-322.0) ng/mL C-Reactive Protein 74.6 H (<10.0) mg/L Vitamin B12 (200.0-944.0) pg/mL Urine Protein (Negative) Urine Blood (Negative) Ur Leukocyte Esterase (Negative) Urine RBC (0-5) /hpf Urine WBC (0-5) /hpf Urine Bacteria (None) /hpf Urine Mucus (None) /hpf U Random Total Protein (<12) mg/dL Free [place] LC, Quant (0.33-1.94) mg/dL Free [place]ambda LC, Quant (0.57-2.63) mg/dL 12/27/18 12/27/18 12/27/18 Range/Units 10:30 10:30 11:11 RBC (4.30-5.90) m/uL Hgb (13.0-17.5) gm/dL Hct (39.0-53.0) % RDW (11.5-15.5) % Plt Count (150-450) k/uL Neutrophils # (1.3-7.7) k/uL Haptoglobin (31.2-198.0) mg/dL Sodium (137-145) mmol/L BUN (9-20) mg/dL Creatinine (0.66-1.25) mg/dL POC Glucose (mg/dL) 108 H (75-99) mg/dL Calcium (8.4-10.2) mg/dL Iron (65-175) ug/dL TIBC (228-460) ug/dL Ferritin (22.0-322.0) ng/mL C-Reactive Protein (<10.0) mg/L Vitamin B12 (200.0-944.0) pg/mL Urine Protein 1+ H (Negative) Urine Blood Large H (Negative) Ur Leukocyte Esterase Large H (Negative) Urine RBC >182 H (0-5) /hpf Urine WBC 58 H (0-5) /hpf Urine Bacteria Rare H (None) /hpf Urine Mucus Few H (None) /hpf U Random Total Protein 87 H (<12) mg/dL Free [place] LC, Quant (0.33-1.94) mg/dL Free [place] LC, Quant (0.57-2.63) mg/dL Assessment and Plan Plan: 1 generalized weakness, multifactorial 2 left lower extremity femoral DVT, awaiting an IVC filter placement currently off anticoagulation. The filter will be inserted this afternoon. A consent was given by the patient. He understands that this may be potentially life-saving procedures knowing that he is not a candidate for anticoagulation due to his episodic hematuria. 3 anemia, post transfusion packed RBC. This is likely an acute on top of chronic anemia in the current hemoglobin is at 8.2. 4 CVA with some mild weakness involving the right side and the patient was undergoing rehabilitation at [facility] 5 encephalopathy/confusion, secondary to above, improving and the patient's mental status is normalized significantly 6 chronic lower extremity edema 7 UTI 8 acute on chronic kidney injury 9 diastolic heart failure with preserved LV function with an ejection fraction of 55-60% and the patient is hypertensive heart disease with moderate degree of concentric left ventricular hypertrophy 10 right shoulder pain/swelling, possibly related to a fall PLAN IVC filter placement today. Right shoulder x-ray. Continue Lasix orally as the patient has significant amount of edema in the upper and lower extremities. Monitor renal function. [facility] We'll continue to follow.
[2018-12-27 13:44] LABS: C-ANCA <1:20 Titer (<1:20); P-ANCA <1:20 Titer (<1:20)
[2018-12-27] MEDS ORDERED: IV FLUID CONTINUATION 1,000 ML IV ONE (13:46)
[2018-12-27] MEDS ORDERED: fentaNYL (PF) 50 MCG/ML 2 ML AMP IV ONE (13:46)
[2018-12-27] MEDS ORDERED: LIDOCAINE 1% INJ 10MG/ML (20 ML MDV) SQ ONE (13:47)
[2018-12-27] MEDS ORDERED: IOPAMIDOL-250 100ML BTL IV ONE (14:01)
[2018-12-27] MEDS: FUROSEMIDE 10 MG/ML 10 ML VIAL IV SCH (14:42)
--- NOTE | 2018-12-27 15:40 | P.GSCN ---
History of Present Illness Consult date: 12/27/18 History of present illness: The patient is a 68-year-old gentleman who we've been asked to see for hematuria. He is in the ICU. He came in with failure to thrive. He came in from an extended care facility. He is a poor historian. He has a history congestive heart failure diabetes atrial fibrillation other medical problems. He is found to be severely anemic with renal insufficiency. The etiology of his anemia is indeterminate. The patient's urine showed a lot of red cells with some white cells. Urine culture is negative. Apparently he is growing Proteus mirabilis in his blood stream. He did have an ultrasound of the abdomen that did not show any obvious mass or hydronephrosis on the kidney. He has no indwelling catheter. The urine is clear at this point in time. Review of Systems ROS unobtainable: due to mental status Past Medical History Past Medical History: Atrial Fibrillation, Heart Failure, Hyperlipidemia, Hypertension, Renal Disease, Syncope Additional Past Medical History / Comment(s): anemia, UTI, Hypothyroid, depression, dysphagia History of Any Multi-Drug Resistant Organisms: None Reported Additional Past Surgical History / Comment(s): unknown Past Anesthesia/Blood Transfusion Reactions: No Reported Reaction Past Psychological History: No Psychological Hx Reported Smoking Status: Former smoker Past Alcohol Use History: None Reported Past Drug Use History: None Reported - Past Family History Father History Unknown: Yes Mother History Unknown: Yes Medications and Allergies Home Medications Medication Instructions Recorded Confirmed Type ARIPiprazole [Abilify] 10 mg PO DAILY 12/24/18 12/24/18 History Acetaminophen Tab [Tylenol Tab] 650 mg PO Q6H PRN 12/24/18 12/24/18 History Aspirin [[place] Aspirin EC] 81 mg PO HS 12/24/18 12/24/18 History Atorvastatin [Lipitor] 10 mg PO HS@199912/24/18 12/24/18 History Cyanocobalamin [Vitamin B-12] 500 mcg PO HS 12/24/18 12/24/18 History Divalproex ER [Depakote ER] 500 mg PO BID 12/24/18 12/24/18 History Folic Acid 1 mg PO HS 12/24/18 12/24/18 History Furosemide [Lasix] 20 mg PO DAILY 12/24/18 12/24/18 History Levothyroxine Sodium [Synthroid] 50 mcg PO DAILY 12/24/18 12/24/18 History Ondansetron HCl [Zofran] 4 mg PO Q6H PRN 12/24/18 12/24/18 History Potassium Chloride ER [K-Dur 20] 40 meq PO BID 12/24/18 12/24/18 History Tamsulosin HCl [Flomax] 0.4 mg PO HS 12/24/18 12/24/18 History Allergies Allergy/AdvReac Type Severity Reaction Status Date / Time No Known Allergies Allergy Verified 12/24/18 08:05 Surgical - Exam Vital Signs Temp Pulse Resp BP Pulse Ox 98.1 F 78 20 138/85 100 12/24/18 04:20 12/24/18 04:20 12/24/18 04:20 12/24/18 04:20 12/24/18 04:20 - General well developed, chronically ill - Eyes PERRL - ENT no hearing loss - Neck no masses - Respiratory normal expansion, normal respiratory effort - Cardiovascular Rhythm: regular - Abdomen Abdomen: soft, non tender - Genitourinary Indwelling catheter, normal phallus, normal scrotum, normal testes epididymis. Rectal deferred. - Neurologic normal sensation, confused - Musculoskeletal normal posture Results - Labs 12/27/18 04:24 12/27/18 04:24 Abnormal Lab Results - Last 24 Hours (Table) 10/27/18 12/26/18 12/26/18 Range/Units 17:05 16:57 20:33 RBC (4.30-5.90) m/uL Hgb (13.0-17.5) gm/dL Hct (39.0-53.0) % RDW (11.5-15.5) % Plt Count (150-450) k/uL Neutrophils # (1.3-7.7) k/uL ESR (0-15) mm/hr Haptoglobin 258.0 H (31.2-198.0) mg/dL Sodium (137-145) mmol/L BUN (9-20) mg/dL Creatinine (0.66-1.25) mg/dL POC Glucose (mg/dL) 102 H 111 H (75-99) mg/dL Calcium (8.4-10.2) mg/dL Iron 28 L (65-175) ug/dL TIBC 162 L (228-460) ug/dL Ferritin 518.8 H (22.0-322.0) ng/mL C-Reactive Protein (<10.0) mg/L Vitamin B12 1682.0 H (200.0-944.0) pg/mL Urine Protein (Negative) Urine Blood (Negative) Ur Leukocyte Esterase (Negative) Urine RBC (0-5) /hpf Urine WBC (0-5) /hpf Urine Bacteria (None) /hpf Urine Mucus (None) /hpf U Random Total Protein (<12) mg/dL Free [place] LC, Quant 41.80 H (0.33-1.94) mg/dL Free [place]ambda LC, Quant 38.80 H (0.57-2.63) mg/dL 12/27/18 12/27/18 12/27/18 Range/Units 04:24 04:24 09:15 RBC 2.78 L (4.30-5.90) m/uL Hgb 8.3 L (13.0-17.5) gm/dL Hct 25.9 L (39.0-53.0) % RDW 16.3 H (11.5-15.5) % Plt Count 622 H (150-450) k/uL Neutrophils # 7.9 H (1.3-7.7) k/uL ESR (0-15) mm/hr Haptoglobin (31.2-198.0) mg/dL Sodium 136 L (137-145) mmol/L BUN 72 H (9-20) mg/dL Creatinine 3.23 H (0.66-1.25) mg/dL POC Glucose (mg/dL) (75-99) mg/dL Calcium 8.0 L (8.4-10.2) mg/dL Iron (65-175) ug/dL TIBC (228-460) ug/dL Ferritin (22.0-322.0) ng/mL C-Reactive Protein 74.6 H (<10.0) mg/L Vitamin B12 (200.0-944.0) pg/mL Urine Protein (Negative) Urine Blood (Negative) Ur Leukocyte Esterase (Negative) Urine RBC (0-5) /hpf Urine WBC (0-5) /hpf Urine Bacteria (None) /hpf Urine Mucus (None) /hpf U Random Total Protein (<12) mg/dL Free [place] LC, Quant (0.33-1.94) mg/dL Free Lambda LC, Quant (0.57-2.63) mg/dL 12/27/18 12/27/18 12/27/18 Range/Units 10:30 10:30 11:11 RBC (4.30-5.90) m/uL Hgb (13.0-17.5) gm/dL Hct (39.0-53.0) % RDW (11.5-15.5) % Plt Count (150-450) k/uL Neutrophils # (1.3-7.7) k/uL ESR (0-15) mm/hr Haptoglobin (31.2-198.0) mg/dL Sodium (137-145) mmol/L BUN (9-20) mg/dL Creatinine (0.66-1.25) mg/dL POC Glucose (mg/dL) 108 H (75-99) mg/dL Calcium (8.4-10.2) mg/dL Iron (65-175) ug/dL TIBC (228-460) ug/dL Ferritin (22.0-322.0) ng/mL C-Reactive Protein (<10.0) mg/L Vitamin B12 (200.0-944.0) pg/mL Urine Protein 1+ H (Negative) Urine Blood Large H (Negative) Ur Leukocyte Esterase Large H (Negative) Urine RBC >182 H (0-5) /hpf Urine WBC 58 H (0-5) /hpf Urine Bacteria Rare H (None) /hpf Urine Mucus Few H (None) /hpf U Random Total Protein 87 H (<12) mg/dL Free [place] LC, Quant (0.33-1.94) mg/dL Free Lambda LC, Quant (0.57-2.63) mg/dL 12/27/18 Range/Units 11:48 RBC (4.30-5.90) m/uL Hgb (13.0-17.5) gm/dL Hct (39.0-53.0) % RDW (11.5-15.5) % Plt Count (150-450) k/uL Neutrophils # (1.3-7.7) k/uL ESR 127 H (0-15) mm/hr Haptoglobin (31.2-198.0) mg/dL Sodium (137-145) mmol/L BUN (9-20) mg/dL Creatinine (0.66-1.25) mg/dL POC Glucose (mg/dL) (75-99) mg/dL Calcium (8.4-10.2) mg/dL Iron (65-175) ug/dL TIBC (228-460) ug/dL Ferritin (22.0-322.0) ng/mL C-Reactive Protein (<10.0) mg/L Vitamin B12 (200.0-944.0) pg/mL Urine Protein (Negative) Urine Blood (Negative) Ur Leukocyte Esterase (Negative) Urine RBC (0-5) /hpf Urine WBC (0-5) /hpf Urine Bacteria (None) /hpf Urine Mucus (None) /hpf U Random Total Protein (<12) mg/dL Free [place] LC, Quant (0.33-1.94) mg/dL Free [place]ambda LC, Quant (0.57-2.63) mg/dL Diabetes panel 12/27/18 Range/Units 04:24 Sodium 136 L (137-145) mmol/L Potassium 3.8 (3.5-5.1) mmol/L Chloride 101 (98-107) mmol/L Carbon Dioxide 26 (22-30) mmol/L BUN 72 H (9-20) mg/dL Creatinine 3.23 H (0.66-1.25) mg/dL Glucose 78 (74-99) mg/dL Calcium 8.0 L (8.4-10.2) mg/dL Calcium panel 12/27/18 Range/Units 04:24 Calcium 8.0 L (8.4-10.2) mg/dL Pituitary panel 12/27/18 Range/Units 04:24 Sodium 136 L (137-145) mmol/L Potassium 3.8 (3.5-5.1) mmol/L Chloride 101 (98-107) mmol/L Carbon Dioxide 26 (22-30) mmol/L BUN 72 H (9-20) mg/dL Creatinine 3.23 H (0.66-1.25) mg/dL Glucose 78 (74-99) mg/dL Calcium 8.0 L (8.4-10.2) mg/dL Adrenal panel 12/27/18 Range/Units 04:24 Sodium 136 L (137-145) mmol/L Potassium 3.8 (3.5-5.1) mmol/L Chloride 101 (98-107) mmol/L Carbon Dioxide 26 (22-30) mmol/L BUN 72 H (9-20) mg/dL Creatinine 3.23 H (0.66-1.25) mg/dL Glucose 78 (74-99) mg/dL Calcium 8.0 L (8.4-10.2) mg/dL - Imaging US - abdomen: report reviewed, image reviewed Assessment and Plan Assessment: Impression: Gross hematuria of indeterminate etiology. Whether this is related to the catheter, anticoagulation with his DVT or urologic issues indeterminate. There is no infection based on the culture although the urine did look quite inflamed. At some point in time he will need further urologic evaluation however given that he is not actively bleeding and there is no hydronephrosis there is no emergency to this evaluation.
[2018-12-27] MEDS: FUROSEMIDE 40 MG TAB PO SCH (15:54)
--- NOTE | 2018-12-27 16:17 | XR ---
EXAMINATION TYPE: XR shoulder limited RT DATE OF EXAM: 12/27/2018 COMPARISON: 12/24/2018 HISTORY: 68-year-old male swollen and tender, pain, limited range of motion TECHNIQUE: AP and scapular Y views FINDINGS: Bony irregularity at the greater tuberosity. Moderate degenerative joint space narrowing and marginal spurring at the AC joint. No acute fracture or dislocation seen. Mild osteopenia. IMPRESSION: Bony irregularity at the greater tuberosity could reflect underlying rotator cuff tendinopathy/tear. Moderate AC joint OA. Osteopenia. Consider MRI for further evaluation.
--- NOTE | 2018-12-27 16:42 | IR ---
EXAMINATION TYPE: IR venogram lower ext RT DATE OF EXAM: 12/27/2018 COMPARISON: NONE HISTORY: Fluoroscopy time. Fluoroscopy was provided to the referring clinician.
[2018-12-27 16:51] LABS: Glucose,Whole Blood 97 mg/dL (75-99)
[2018-12-27 20:38] LABS: Glucose,Whole Blood 85 mg/dL (75-99)
[2018-12-27] MEDS: ACETAMINOPHEN TAB 325 MG TAB PO PRN (21:13)
[2018-12-27] MEDS: FAMOTIDINE 20 MG/2 ML VIAL IV SCH (21:13)
[2018-12-28 06:02] LABS: Anisocytosis Slight; Basophils % (A) 1 %; Eosinophils # (A) 0.1 k/uL (0-0.7); Eosinophils % (A) 2 %; HCT 25.2 % (39.0-53.0); HGB 8.1 gm/dL (13.0-17.5); Lymphocytes # (A) 1.3 k/uL (1.0-4.8); Lymphocytes % (A) 15 %; MCH 29.6 pg (25.0-35.0); MCV 92.6 fL (80.0-100.0); Mean Platelet Volume 6.9; Monocytes # (A) 0.8 k/uL (0-1.0); Monocytes % (A) 9 %; Neutrophils # (A) 6.4 k/uL (1.3-7.7); Neutrophils % (A) 72 %; Platelet Count 558 k/uL (150-450); RBC 2.72 m/uL (4.30-5.90); RDW 16.1 % (11.5-15.5); WBC 8.9 k/uL (3.8-10.6)
[2018-12-28 06:24] LABS: Calcium 8.3 mg/dL (8.4-10.2); Magnesium 1.9 mg/dL (1.6-2.3); Potassium 3.6 mmol/L (3.5-5.1)
[2018-12-28] MEDS ORDERED: Potassium Replacement Protocol 1 EACH MISC MISCELLANE PRN ×2 (06:38→06:57)
[2018-12-28] MEDS: FERROUS SULFATE 325 MG TAB PO SCH ×2 (06:52→17:08)
[2018-12-28] MEDS ORDERED: POTASSIUM CHLORIDE ER 20 MEQ TAB.ER PO SCH ×3 (07:00→08:00)
[2018-12-28] MEDS: POTASSIUM CHLORIDE ER 20 MEQ TAB.ER PO SCH ×2 (07:01→09:16)
--- NOTE | 2018-12-28 07:33 | PCN ---
PROCEDURE NOTE PREOPERATIVE DIAGNOSE: Deep vein thrombosis with hematuria. PROCEDURE: Attempted to place a filter in the inferior vena cavogram. DESCRIPTION OF PROCEDURE: This patient was brought to the cath lab manager. Right and left groin were prepped and draped in a sterile manner; 1% lidocaine plain for the right groin area. Ultrasound-guided micropuncture into the right common femoral vein, micropuncture guidewire was passed and 4-Frisian dilator advanced on top of the guidewire, then we passed a regular guidewire and we placed a 5-Frisian sheath. Through the sheath we passed a pigtail catheter and an inferior vena cavogram was performed, found to have this patient had a filter was seen above both the iliac veins, which has been placed in the past and patient did not know the procedure done in the past. At this point, we checked the vena cavogram. The vena cavogram was found to be patent and both the renals were visualized. The filter was found to be above the both iliac vein. At this point, we did not place another filter because vena cava was found to have a filter and vena cava was patent. Sheath was removed. Pressure held. Patient tolerated the procedure well. Procedure was inferior vena cavogram. MMODL / IJN: [id number] /
--- NOTE | 2018-12-28 08:50 | P.PN ---
Subjective Progress Note Date: 12/28/18 Principal diagnosis: Acute renal failure This is a 68-year-old gentleman who was transferred from extended care facility to the hospital with a change in mental status. The patient himself is a poor historian and he was slightly confused. He was found to be hyperkalemic with a cute renal failure and volume overload. He was started on Lasix with improvement in the with potassium. On follow-up with the patient today, December 282018, the patient seems to be doing better. His mentation has improved significantly. He is hemodynamically stable. The blood pressure is slightly on the higher side. The creatinine has been coming down. Currently he is on by mouth Lasix. He did undergo an IVC filter placement yesterday. The hemoglobin is around 8. The echocardiogram re vealed normal LV function with mild MR and mild TR. Objective - Vital Signs Vital signs: Vital Signs Temp 97.9 F 12/28/18 04:00 Pulse 59 L 12/28/18 07:00 Resp 15 12/28/18 07:00 BP 149/73 12/28/18 07:00 Pulse Ox 96 12/28/18 07:00 Intake & Output 12/27/18 12/28/18 12/28/18 18:59 06:59 18:59 Intake Total 950 1052 10 Output Total 1490 1500 125 Balance -540 -448 -115 Weight 84.3 kg Intake: IV 170 120 10 Sodium Chloride 0.9% 1, 120 120 10 000 ml @ 20 mls/hr IV . Q24H [facility] Rx#:[id number] Oral 780 932 Output: Urine 1490 1500 125 Other: Voiding Method Indwelling Catheter Indwelling Catheter - Constitutional General appearance: Present: no acute distress - Respiratory Respiratory: bilateral: CTA - Cardiovascular Rhythm: regular - Labs CBC & Chem 7: 12/28/18 05:27 12/28/18 05:27 Labs: Abnormal Lab Results - Last 24 Hours (Table) 10/27/18 12/27/18 12/27/18 Range/Units 17:05 09:15 10:30 RBC (4.30-5.90) m/uL Hgb (13.0-17.5) gm/dL Hct (39.0-53.0) % RDW (11.5-15.5) % Plt Count (150-450) k/uL ESR (0-15) mm/hr Haptoglobin 258.0 H (31.2-198.0) mg/dL Sodium (137-145) mmol/L BUN (9-20) mg/dL Creatinine (0.66-1.25) mg/dL Glucose (74-99) mg/dL POC Glucose (mg/dL) (75-99) mg/dL Calcium (8.4-10.2) mg/dL Iron 28 L (65-175) ug/dL TIBC 162 L (228-460) ug/dL Ferritin 518.8 H (22.0-322.0) ng/mL C-Reactive Protein 74.6 H (<10.0) mg/L Vitamin B12 1682.0 H (200.0-944.0) pg/mL Urine Protein 1+ H (Negative) Urine Blood Large H (Negative) Ur Leukocyte Esterase Large H (Negative) Urine RBC >182 H (0-5) /hpf Urine WBC 58 H (0-5) /hpf Urine Bacteria Rare H (None) /hpf Urine Mucus Few H (None) /hpf U Random Total Protein (<12) mg/dL Free [place] LC, Quant 41.80 H (0.33-1.94) mg/dL Free [place]ambda LC, Quant 38.80 H (0.57-2.63) mg/dL 12/27/18 12/27/18 12/27/18 Range/Units 10:30 11:11 11:48 RBC (4.30-5.90) m/uL Hgb (13.0-17.5) gm/dL Hct (39.0-53.0) % RDW (11.5-15.5) % Plt Count (150-450) k/uL ESR 127 H (0-15) mm/hr Haptoglobin (31.2-198.0) mg/dL Sodium (137-145) mmol/L BUN (9-20) mg/dL Creatinine (0.66-1.25) mg/dL Glucose (74-99) mg/dL POC Glucose (mg/dL) 108 H (75-99) mg/dL Calcium (8.4-10.2) mg/dL Iron (65-175) ug/dL TIBC (228-460) ug/dL Ferritin (22.0-322.0) ng/mL C-Reactive Protein (<10.0) mg/L Vitamin B12 (200.0-944.0) pg/mL Urine Protein (Negative) Urine Blood (Negative) Ur Leukocyte Esterase (Negative) Urine RBC (0-5) /hpf Urine WBC (0-5) /hpf Urine Bacteria (None) /hpf Urine Mucus (None) /hpf U Random Total Protein 87 H (<12) mg/dL Free [place] LC, Quant (0.33-1.94) mg/dL Free Lambda LC, Quant (0.57-2.63) mg/dL 12/28/18 12/28/18 Range/Units 05:27 05:27 RBC 2.72 L (4.30-5.90) m/uL Hgb 8.1 L (13.0-17.5) gm/dL Hct 25.2 L (39.0-53.0) % RDW 16.1 H (11.5-15.5) % Plt Count 558 H (150-450) k/uL ESR (0-15) mm/hr Haptoglobin (31.2-198.0) mg/dL Sodium 134 L (137-145) mmol/L BUN 73 H (9-20) mg/dL Creatinine 2.92 H (0.66-1.25) mg/dL Glucose 73 L (74-99) mg/dL POC Glucose (mg/dL) (75-99) mg/dL Calcium 8.3 L (8.4-10.2) mg/dL Iron (65-175) ug/dL TIBC (228-460) ug/dL Ferritin (22.0-322.0) ng/mL C-Reactive Protein (<10.0) mg/L Vitamin B12 (200.0-944.0) pg/mL Urine Protein (Negative) Urine Blood (Negative) Ur Leukocyte Esterase (Negative) Urine RBC (0-5) /hpf Urine WBC (0-5) /hpf Urine Bacteria (None) /hpf Urine Mucus (None) /hpf U Random Total Protein (<12) mg/dL Free [place] LC, Quant (0.33-1.94) mg/dL Free Lambda LC, Quant (0.57-2.63) mg/dL Assessment and Plan Assessment: Assessment #1 change in mental status #2 acute renal failure #3 congestive heart failure secondary to diastolic dysfunction #4 left lower extremities DVT #5 hematuria #6 anemia, blood loss anemia Plan #1 the patient underwent IVC filter yesterday #2 continue monitor the kidney function and electrolytes #3 continue current medical regimen #4 continue following up with the patient
[2018-12-28] MEDS: FUROSEMIDE 40 MG TAB PO SCH ×2 (09:17→17:08)
[2018-12-28] MEDS: FAMOTIDINE 20 MG/2 ML VIAL IV SCH (09:17)
[2018-12-28] MEDS: ACETAMINOPHEN TAB 325 MG TAB PO PRN (09:17)
[2018-12-28] MEDS: DIVALPROEX ER 500 MG TAB.ER.24H PO SCH ×2 (09:17→21:18)
[2018-12-28] MEDS: MAGNESIUM OXIDE 400 MG TAB PO SCH (09:17)
--- NOTE | 2018-12-28 11:14 | P.PN ---
Subjective Progress Note Date: 12/28/18 Principal diagnosis: Left lower extremity femoral DVT, weakness The patient is seen today 12/28/2018 in follow-up in the intensive care unit. He is more awake and alert today. Feeling a bit stronger. He is maintaining good O2 saturations in the mid 90s on room air. He's afebrile. Slightly hypertensive. No shortness of breath, cough or congestion. He did undergo angiogram yesterday with plans to place a Hazard filter but was found to have one in place per vascular services. Urine is less bloody today. White count 8.9. Hemoglobin 8.1. Creatinine 2.92. He is status post 2 units of packed red blood cells since admission. Urine culture reveals no growth. Valorie ient is currently on cefepime. Pepcid 20 mg IV push every 12 hours. His main complaint is that of a right shoulder pain. Orthopedics have been consulted. X-ray revealed bony irregularity at the greater tuberosity which could reflect underlying rotator cuff tendinopathy/tear. Moderate AC joint OA. Osteopenia. Objective - Vital Signs Vital signs: Vital Signs Temp 98.2 F 12/28/18 08:00 Pulse 72 12/28/18 09:00 Resp 19 12/28/18 09:00 BP 169/82 12/28/18 09:00 Pulse Ox 95 12/28/18 09:00 Intake & Output 12/27/18 12/28/18 12/28/18 18:59 06:59 18:59 Intake Total 950 1052 30 Output Total 1490 1500 325 Balance -540 -448 -295 Weight 84.3 kg Intake: IV 170 120 30 Sodium Chloride 0.9% 1, 120 120 30 000 ml @ 20 mls/hr IV . Q24H [facility] Rx#:[id number] Oral 780 932 Output: Urine 1490 1500 325 Other: Voiding Method Indwelling Catheter Indwelling Catheter Indwelling Catheter - Exam -GENERAL: The patient is alert and oriented x3, not in any acute distress. pale. Forgetful, and has a poor attention span. He is able to follow commands and he does not seem to be in any form of respiratory distress for now. On room air. HEENT: Pupils are round and equally reacting to light. EOMI. No scleral icterus. No conjunctival pallor. Normocephalic, atraumatic. No pharyngeal erythema. No thyromegaly. CARDIOVASCULAR: S1 and S2 present. No murmurs, rubs, or gallops. -PULMONARY: Bilateral equal air entry. Bilateral crepitation heard bilaterally. ABDOMEN: Soft, nontender, nondistended, normoactive bowel sounds. No palpable organomegaly. MUSCULOSKELETAL: No joint swelling or deformity. -EXTREMITIES: No cyanosis, clubbing,. Bilateral leg edema. He has limitation movement of his right upper extremities, compared to the left side. However he feels generally weak Right shoulder is painful and swollen and warm NEUROLOGICAL: Gross neurological examination did not reveal any focal deficits. He has generalized weakness. His right upper extremity movement is limited by his shoulder problem. Both legs are weak but they look symmetrical. Cranial nerves are grossly intact. Sensation is intact. Meningeal signs are absent SKIN: No rashes.Examination of the skin revealed no evidence of significant rash es, suspicious appearing nevi or other concerning lesions. - Labs CBC & Chem 7: 12/28/18 05:27 12/28/18 05:27 Labs: Abnormal Lab Results - Last 24 Hours (Table) 10/27/18 12/27/18 12/27/18 Range/Units 17:05 09:15 10:30 RBC (4.30-5.90) m/uL Hgb (13.0-17.5) gm/dL Hct (39.0-53.0) % RDW (11.5-15.5) % Plt Count (150-450) k/uL ESR (0-15) mm/hr Haptoglobin 258.0 H (31.2-198.0) mg/dL Sodium (137-145) mmol/L BUN (9-20) mg/dL Creatinine (0.66-1.25) mg/dL Glucose (74-99) mg/dL POC Glucose (mg/dL) (75-99) mg/dL Calcium (8.4-10.2) mg/dL Iron 28 L (65-175) ug/dL TIBC 162 L (228-460) ug/dL Ferritin 518.8 H (22.0-322.0) ng/mL C-Reactive Protein 74.6 H (<10.0) mg/L Vitamin B12 1682.0 H (200.0-944.0) pg/mL U Random Total Protein 87 H (<12) mg/dL Free [place] LC, Quant 41.80 H (0.33-1.94) mg/dL Free Lambda LC, Quant 38.80 H (0.57-2.63) mg/dL 12/27/18 12/27/18 12/28/18 Range/Units 11:11 11:48 05:27 RBC 2.72 L (4.30-5.90) m/uL Hgb 8.1 L (13.0-17.5) gm/dL Hct 25.2 L (39.0-53.0) % RDW 16.1 H (11.5-15.5) % Plt Count 558 H (150-450) k/uL ESR 127 H (0-15) mm/hr Haptoglobin (31.2-198.0) mg/dL Sodium (137-145) mmol/L BUN (9-20) mg/dL Creatinine (0.66-1.25) mg/dL Glucose (74-99) mg/dL POC Glucose (mg/dL) 108 H (75-99) mg/dL Calcium (8.4-10.2) mg/dL Iron (65-175) ug/dL TIBC (228-460) ug/dL Ferritin (22.0-322.0) ng/mL C-Reactive Protein (<10.0) mg/L Vitamin B12 (200.0-944.0) pg/mL U Random Total Protein (<12) mg/dL Free [place] LC, Quant (0.33-1.94) mg/dL Free Lambda LC, Quant (0.57-2.63) mg/dL 12/28/18 Range/Units 05:27 RBC (4.30-5.90) m/uL Hgb (13.0-17.5) gm/dL Hct (39.0-53.0) % RDW (11.5-15.5) % Plt Count (150-450) k/uL ESR (0-15) mm/hr Haptoglobin (31.2-198.0) mg/dL Sodium 134 L (137-145) mmol/L BUN 73 H (9-20) mg/dL Creatinine 2.92 H (0.66-1.25) mg/dL Glucose 73 L (74-99) mg/dL POC Glucose (mg/dL) (75-99) mg/dL Calcium 8.3 L (8.4-10.2) mg/dL Iron (65-175) ug/dL TIBC (228-460) ug/dL Ferritin (22.0-322.0) ng/mL C-Reactive Protein (<10.0) mg/L Vitamin B12 (200.0-944.0) pg/mL U Random Total Protein (<12) mg/dL Free [place] LC, Quant (0.33-1.94) mg/dL Free Lambda LC, Quant (0.57-2.63) mg/dL Assessment and Plan Assessment: Impression: #1 Generalized weakness, multifactorial. #2 Left lower extremity femoral DVT, previous IVC placement. #3 Anemia, status post 2 units packed red blood cells since admission. Current hemoglobin 8.1. #4 CVA with some mild weakness involving the right side and the patient was undergoing rehabilitation at [facility]. #5 Encephalopathy/confusion, secondary to above, improving. #6 Chronic lower extremity edema. #7 History of urinary tract infection. #8 Acute on chronic kidney disease. #9 Diastolic congestive heart failure with preserved left ventricular systolic function. Ejection fraction 55-60%. #10 Right shoulder pain/swelling, possibly related to fall. Orthopedics consulted. Plan: The patient was seen and evaluated by Dr. Cline. He is currently stable from the pulmonary and critical care standpoint. He currently remains off anticoagulants. The patient had a previous IVC filter placement. Right shou lder x-ray reviewed. Computed consulted. We will continue to follow and make further recommendations based on his clinical status. Possible transfer out of the ICU later today. I, the cosigning physician, performed a history & physical examination of the patient. Lungs sounds with faint crackles in the posterior bases. Maintaining good O2 saturations in the 90s on room air. I discussed the assessment and plan of care with my nurse practitioner, Jeanie Bey. I attest to the above note as dictated by her.
[2018-12-28 11:36] LABS: Gamma Globulin 2.71 g/dL (0.70-1.50)
--- NOTE | 2018-12-28 11:58 | P.PN ---
Subjective Patient seen in follow-up for acute kidney injury. Unknown baseline renal function. Renal function a little improved today - creatinine 2.9 to today. He is maintained on Lasix 40 mg orally 2 times daily. He is nonoliguric. Dyspnea is improved. Oral intake is fair. No vomiting or diarrhea. Vital signs are stable. General: The patient appeared well nourished and normally developed. HEENT: Head exam is unremarkable. Neck is without jugular venous distension. LUNGS: Breath sounds decreased. HEART: Rate and Rhythm are regular. First and second heart sounds normal. No murmurs, rubs or gallops. ABDOMEN: Abdominal exam reveals normal bowel sounds. Non-tender and non- distended. No evidence of peritonitis. EXTREMITITES: Trace edema. Objective - Vital Signs Vital signs: Vital Signs Temp 98.2 F 12/28/18 08:00 Pulse 72 12/28/18 09:00 Resp 19 12/28/18 09:00 BP 169/82 12/28/18 09:00 Pulse Ox 95 12/28/18 09:00 Intake & Output 12/27/18 12/28/18 12/28/18 18:59 06:59 18:59 Intake Total 950 1052 30 Output Total 1490 1500 325 Balance -540 -448 -295 Weight 84.3 kg Intake: IV 170 120 30 Sodium Chloride 0.9% 1, 120 120 30 000 ml @ 20 mls/hr IV . Q24H [facility] Rx#:[id number] Oral 780 932 Output: Urine 1490 1500 325 Other: Voiding Method Indwelling Catheter Indwelling Catheter Indwelling Catheter - Labs CBC & Chem 7: 12/28/18 05:27 12/28/18 05:27 Labs: Abnormal Lab Results - Last 24 Hours (Table) 10/27/18 12/27/18 12/28/18 Range/Units 17:05 11:48 05:27 RBC 2.72 L (4.30-5.90) m/uL Hgb 8.1 L (13.0-17.5) gm/dL Hct 25.2 L (39.0-53.0) % RDW 16.1 H (11.5-15.5) % Plt Count 558 H (150-450) k/uL ESR 127 H (0-15) mm/hr Sodium (137-145) mmol/L BUN (9-20) mg/dL Creatinine (0.66-1.25) mg/dL Glucose (74-99) mg/dL Calcium (8.4-10.2) mg/dL Albumin (PEP) 1.60 L (3.80-4.90) g/dL Bhltb-[id number] 0.57 H (0.10-0.40) g/dL Gamma Globulins 2.71 H (0.70-1.50) g/dL 12/28/18 Range/Units 05:27 RBC (4.30-5.90) m/uL Hgb (13.0-17.5) gm/dL Hct (39.0-53.0) % RDW (11.5-15.5) % Plt Count (150-450) k/uL ESR (0-15) mm/hr Sodium 134 L (137-145) mmol/L BUN 73 H (9-20) mg/dL Creatinine 2.92 H (0.66-1.25) mg/dL Glucose 73 L (74-99) mg/dL Calcium 8.3 L (8.4-10.2) mg/dL Albumin (PEP) (3.80-4.90) g/dL Kwful-7-Lrbuizmld (0.10-0.40) g/dL Gamma Globulins (0.70-1.50) g/dL Assessment and Plan Plan: Assessment: 1. Acute kidney injury secondary to ATN secondary to cardiorenal syndrome. Renal function a little better today. Creatinine 2.9 to today. Creatinine on 12/07/2018 was 2.1 which was during his admission at [facility] in [place]. No other records available. No evidence of hydronephrosis noted on renal ultrasound. Serologic workup has been negative except serum immunofixation is positive for IgG lambda. Urine eosinophils also positive at 3%. 2. Volume overload secondary to CHF. Improved. 3. Diastolic CHF. 4. Left lower extremity DVT. Currently not on anticoagulation as he developed hematuria and anemia. ?IVC filter. 5. Proteinuria. UPC 2.48. Rule out GN. Serologies negative so far. Urine eosinophils mildly positive at 1% - repeat 3%. SPEP positive for IgG Lambda - oncology following. 6. Hypomagnesemia secondary to diuresis. S/p replacement. Plan: Maintain Lasix 40 mg orally twice daily. Start prednisone 60 mg daily. This will be tapered over the next 1-2 months. Continue to monitor renal function and urine output. Patient will need a kidney biopsy for definitive diagnosis down the road, especially if no improvement in his renal function.
--- NOTE | 2018-12-28 12:13 | P.PN ---
Subjective Progress Note Date: 12/28/18 Principal diagnosis: Right shoulder pain Patient was evaluated at bedside by both myself Dr. Rogel. Initial consult was done a few days ago demonstrated a very stiff, painful swollen shoulder. I have a low concern for a septic etiology involving the swelling. We recently received documentation from a recent hospitalization at [facility]. Apparently patient was diagnosed at that time with bacteremia and right shoulder pain, with a history of her recent fall. There was no workup done for the shoulder during that time. We were contacted by the oncology team yesterday regarding the shoulder, and if there was any other diagnostic options. Objective - Vital Signs Vital signs: Vital Signs Temp 98.2 F 12/28/18 08:00 Pulse 72 12/28/18 09:00 Resp 19 12/28/18 09:00 BP 169/82 12/28/18 09:00 Pulse Ox 95 12/28/18 09:00 Intake & Output 12/27/18 12/28/18 12/28/18 18:59 06:59 18:59 Intake Total 950 1052 30 Output Total 1490 1500 325 Balance -540 -448 -295 Weight 84.3 kg Intake: IV 170 120 30 Sodium Chloride 0.9% 1, 120 120 30 000 ml @ 20 mls/hr IV . Q24H [facility] Rx#:[id number] Oral 780 932 Output: Urine 1490 1500 325 Other: Voiding Method Indwelling Catheter Indwelling Catheter Indwelling Catheter - Exam Right upper extremity: Obvious soft tissue swelling present involving the right shoulder and the remaining right upper extremity. No significant warmth is present over the joint, there is no erythema or open lesions His range of motion remains very limited, passive motion of the shoulder does reproduce significant discomfort Patient's range of motion is slightly improved with the elbow, hand and wrist Sensation to light touch is intact, radial pulses 2+ - Labs CBC & Chem 7: 12/28/18 05:27 12/28/18 05:27 Labs: Abnormal Lab Results - Last 24 Hours (Table) 10/27/18 12/27/18 12/28/18 Range/Units 17:05 11:48 05:27 RBC 2.72 L (4.30-5.90) m/uL Hgb 8.1 L (13.0-17.5) gm/dL Hct 25.2 L (39.0-53.0) % RDW 16.1 H (11.5-15.5) % Plt Count 558 H (150-450) k/uL ESR 127 H (0-15) mm/hr Sodium (137-145) mmol/L BUN (9-20) mg/dL Creatinine (0.66-1.25) mg/dL Glucose (74-99) mg/dL Calcium (8.4-10.2) mg/dL Albumin (PEP) 1.60 L (3.80-4.90) g/dL Qyrfs-7-Ynrolpbnr 0.57 H (0.10-0.40) g/dL Gamma Globulins 2.71 H (0.70-1.50) g/dL 12/28/18 Range/Units 05:27 RBC (4.30-5.90) m/uL Hgb (13.0-17.5) gm/dL Hct (39.0-53.0) % RDW (11.5-15.5) % Plt Count (150-450) k/uL ESR (0-15) mm/hr Sodium 134 L (137-145) mmol/L BUN 73 H (9-20) mg/dL Creatinine 2.92 H (0.66-1.25) mg/dL Glucose 73 L (74-99) mg/dL Calcium 8.3 L (8.4-10.2) mg/dL Albumin (PEP) (3.80-4.90) g/dL Cxadu-1-Aduajnzua (0.10-0.40) g/dL Gamma Globulins (0.70-1.50) g/dL Assessment and Plan Plan: Assessment: 1. Right shoulder pain 2. 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 Right shoulder adhesive capsulitis 4. History of stroke with right-sided residual weakness 5. Multiple medical comorbidities Plan: At bedside today, we discussed with the patient the option of doing a aspiration of the joint to rule out an infectious etiology. Patient did give verbal consent. Please see procedure note for further detail. Recommend use of arm sling at this time Pain control, recommend icing of the shoulder along with anti-inflammatory medication Other medical specialties With results of the aspiration, no concern for septic etiology at this time, recommend further medical workup Time with Patient: Less than 30
--- NOTE | 2018-12-28 12:16 | P.PCN ---
Date of Procedure: 12/28/18 Preoperative Diagnosis: Right shoulder pain and swelling Postoperative Diagnosis: Same Procedure(s) Performed: Right shoulder aspiration Implants: None Anesthesia: none Surgeon: Brooks Rogel Estimated Blood Loss (ml): 0 Pathology: none sent Condition: stable Disposition: no change Indications for Procedure: Patient has a history of right shoulder pain and swelling along with a diagnosis of bacteremia with unknown etiology Description of Procedure: Verbal consent containing from the patient at bedside Patient was sitting in the upright position, the anterior aspect of the shoulder was prepped with a ChloraPrep swab. The 18-gauge needle was used to attempt the aspiration of the right shoulder. No purulent fluid or excess joint fluid was obtained to send for pathology. Bandages place, patient tolerated procedure.
--- NOTE | 2018-12-28 12:47 | P.PN ---
Subjective This is a pleasant 68 years old male with past medical history of congestive heart failure, atrial fibrillation, hypertension, hyperlipidemia, syncope, hypothyroidism, dysphagia. Patient is never been in this hospital before and there is no records or previous labs for him. He was sent from his ECF for generalized weakness. Patient himself said he is poor historian, his fully awake and oriented but he has memory difficulty which could be part of his dementia or metabolic encephalopathy. Patient denies chest pain however he reports some breathing difficulty although he does not use his accessory muscles. He denies abdominal pain or tenderness. No nausea vomiting. He had regular bowel movements. He denies urinary complaints and he cannot remember if he has kidney disease. He has difficulty moving his right upper extremity and his right shoulder looks painful and swollen. Patient states that he was in ECF for 3 weeks, he could not remember why he was in the hospital before that but he states that he had stroke with right-sided weakness In the emergency room patient was found to have creatinine of 3.0 with no previous records to compare. Potassium 7.0, Came down with therapy to 6.7. Hemoglobin of 7 In the emergency room he got insulin 10 units with D50 and insulin 10 U x I, sodium bicarb and calcium gluconate 1 g, also patient got 1 unit of blood transfusion as emergency however when he was awake he gave permission to give a blood transfusion. Risks benefits and alternatives are explained to the patient and he agrees. Vitals shows mild bradycardia in mid 50s. Rest of vitals are stable. Patient has leukocytosis of 14.4, hemoglobin of 7.0, platelets 707. Potassium elevated 7 and 6.7. Sugar is controlled, proBNP is elevated at 23,000, liver enzymes not elevated. Troponin is negative. EKG showing normal sinus rhythm at [address]-T abnormalities. QTC 375. Chest x-ray showing bilateral pleural effusions and interstitial pulmonary edema. UA is suspicious for infection. Urine culture is ordered 12/25/2018 Patient remains in the ICU as overflow bed. He is feels a little better. Denied chest pain however he has some dyspnea. His still has right arm swelling and right shoulder swelling. Bilateral leg swelling. Vitals stable but he is bradycardic. He is saturating 95 on room air. He still has Roberts catheter with hematuria. His WBC today is 12.1. Hemoglobin 8.5. INR 1.2. Creatinine 3.0 and potassium 5.7. Patient has Doppler of the lower extremity showing left DVT. I discussed the case with vascular surgery yesterday and Dr. Matute. Patient could not tolerate heparin and was stopped. Patient received blood transfusion and his hemoglobin and vitals are stable this morning. Patient is a started on iron pills. Her consult is our following the case 12/26/18 pt feels little better today he was sitting in bed fully awake and oriented to the surrounding, he did not have specific complaint. pt still has roberts cath in place and his hematuria is clearing up , his urine today was almost yellow in color. vascular and pulmonary/critical care input is appreciated. pt might need IVC filter . 12/27/2018 Patient sitting in bed with no chest pain or dyspnea. He thinks he is improving. He is a stable hemodynamically. He denies any pain. Roberts catheter is in place. His urine is pink today again after it was clearing up yesterday. Some of call urology consult. Patient is being followed by pulmonary/critical care team and vascular surgery team for he has DVT. Patient has been evaluated by IVC filter. There is contraindication to heparin now, as heparin was started first day he came in and his hemoglobin dropped in one hour from 8.2 down to 7, and he developed worsening hematuria at that time and we have to give him another unit of blood transfusion at that time, his hemoglobin currently is a stable at this 0.3, case was discussed with Dr. Matute. And his urine culture is negative, although is on antibiotic his leukocytosis is improving and his white cell count is normal today at 10.6K. Creatinine is 3.2. Sodium 136. Case has been followed also by hematology and nephrology and their Workup as ordered. Discussed with staff 12/28/2018 Patient remains in the ICU, generally weak, he is fully awake and oriented with no chest pain or dyspnea. He still have Roberts catheter which is clearing up from his hematuria, patient has been evaluated by urologist and recommended workup later on to be done and nothing urgent. Patient has vascular team evaluated the patient, he underwent procedure and found to have IVC filter already installed previously, no new filter needed. Orthopedic team evaluated the patient again and he had aspiration of from his right shoulder Serology test showing serum immunofixation is positive for IgG lambda. Urine eosinophils also positive at 3%. Database Consultant started the patient on prednisone with recommendation for kidney biopsy later on Vitals are stable. Hemoglobin stable around 8.1, and review of his anemia of chronic disease plus losing some of blood through the urine contributing to some anemia of acute blood loss. Creatinine stable at 2.9 and nephrology team are following. CONSTITUTIONAL: No fever. HEENT: No recent visual problems or hearing problems. Denied any sore throat. CARDIOVASCULAR: no syncope. PULMONARY: no hemoptysis. GASTROINTESTINAL: No diarrhea, no nausea, no vomiting, no abdominal pain. Normoactive bowel sounds. NEUROLOGICAL: No headaches, no numbness. HEMATOLOGICAL: Denies any bleeding or petechiae. ENDOCRINE: Denies any polyuria or polydipsia. Medication: Tylenol, ceftriaxone, Depakote, ferrous sulfate, Lasix Objective - Vital Signs Vital signs: Vital Signs Temp 98.1 F 12/28/18 12:00 Pulse 57 L 12/28/18 12:00 Resp 14 12/28/18 12:00 BP 139/74 12/28/18 12:00 Pulse Ox 97 12/28/18 12:00 Intake & Output 12/27/18 12/28/18 12/28/18 18:59 06:59 18:59 Intake Total 950 1052 60 Output Total 1490 1500 645 Balance -540 -448 -585 Weight 84.3 kg Intake: IV 170 120 60 Sodium Chloride 0.9% 1, 120 120 60 000 ml @ 20 mls/hr IV . Q24H [facility] Rx#:[id number] Oral 780 932 Output: Urine 1490 1500 645 Other: Voiding Method Indwelling Catheter Indwelling Catheter Indwelling Catheter - Exam -GENERAL: The patient is alert and oriented x3, not in any acute distress. pale. Forgetful HEENT: Pupils are round and equally reacting to light. EOMI. No scleral icterus. No conjunctival pallor. Normocephalic, atraumatic. No pharyngeal erythema. No thyromegaly. CARDIOVASCULAR: S1 and S2 present. No murmurs, rubs, or gallops. -PULMONARY: Bilateral equal air entry. Bilateral crepitation and scattered wheezing.. ABDOMEN: Soft, nontender, nondistended, normoactive bowel sounds. No palpable organomegaly. MUSCULOSKELETAL: No joint swelling or deformity. -EXTREMITIES: No cyanosis, clubbing,. Bilateral leg edema. He has limitation movement of his right upper extremities, compared to the left side. However he feels generally weak Right shoulder is painful and swollen and warm NEUROLOGICAL: Gross neurological examination did not reveal any focal deficits. He has generalized weakness. His right upper extremity movement is limited by his shoulder problem. Both legs are weak but they look symmetrical. Cranial nerves are grossly intact. Sensation is intact. Meningeal signs are absent SKIN: No rashes. - Labs CBC & Chem 7: 12/28/18 05:27 12/28/18 05:27 Labs: Abnormal Lab Results - Last 24 Hours (Table) 10/27/18 12/27/18 12/28/18 Range/Units 17:05 11:48 05:27 RBC 2.72 L (4.30-5.90) m/uL Hgb 8.1 L (13.0-17.5) gm/dL Hct 25.2 L (39.0-53.0) % RDW 16.1 H (11.5-15.5) % Plt Count 558 H (150-450) k/uL ESR 127 H (0-15) mm/hr Sodium (137-145) mmol/L BUN (9-20) mg/dL Creatinine (0.66-1.25) mg/dL Glucose (74-99) mg/dL Calcium (8.4-10.2) mg/dL Albumin (PEP) 1.60 L (3.80-4.90) g/dL [id number] 0.57 H (0.10-0.40) g/dL Gamma Globulins 2.71 H (0.70-1.50) g/dL 12/28/18 Range/Units 05:27 RBC (4.30-5.90) m/uL Hgb (13.0-17.5) gm/dL Hct (39.0-53.0) % RDW (11.5-15.5) % Plt Count (150-450) k/uL ESR (0-15) mm/hr Sodium 134 L (137-145) mmol/L BUN 73 H (9-20) mg/dL Creatinine 2.92 H (0.66-1.25) mg/dL Glucose 73 L (74-99) mg/dL Calcium 8.3 L (8.4-10.2) mg/dL Albumin (PEP) (3.80-4.90) g/dL Nllmx-[id number]-Tclbulhob (0.10-0.40) g/dL Gamma Globulins (0.70-1.50) g/dL Assessment and Plan Assessment: Possible acute DVT, status post IVC filter Hematuria, improving Acute kidney injury, on chronic kidney disease serum immunofixation is positive for IgG lambda. Urine eosinophils also positive at 3%. Started on prednisone. We'll need kidney biopsy later Right shoulder swelling, rule out septic arthritis Hyperkalemia, resolved Elements of acute blood loss anemia and anemia of chronic disease. Hemoglobin stable interstitial edema with bilateral pleural effusion. Improvement Possible Urinary tract infection Bilateral leg swelling History of stroke with mild right hemiparesis as per patient Plan: This is a pleasant 68 years old male who presents with several problems including hematuria and acute DVT. Patient admitted to the intensive care unit. Patient could not tolerate heparin drip once started first day he came in and he blacked through his Roberts catheter. At that time needed blood transfusion. Vascular surgery in case for evaluation for possible IVC filter. Patient already has an IVC filter. Patient already is been evaluated by county demonstrator, mallet cutter has been consulted by emergency room team. Patient is currently on Lasix. Call orthopedic consult is appreciated , patient underwent aspiration of his right shoulder, has DVT of lower ext on Doppler but negative for clot in right upper extremity. Monitor potassium level and treated accordingly. . echocardiogram EF 55%. urine culture is negative for infection Labs and medication were reviewed.. Continue same treatment. Continue with symptomatic treatment. Resume home medication. Monitor lytes and vitals. DVT and GI prophylaxis. Further recommendations of the clinical course of the patient DVT prophylaxis: no heparin GI Prophylaxis: Pepcid Prognosis is guarded
[2018-12-28 12:51] LABS: Anti-Glomerular Basement Memb 5 UNITS (0-20)
[2018-12-28] MEDS: predniSONE 20 MG TAB PO SCH (13:00)
[2018-12-28] MEDS: SODIUM CHLORIDE 0.9% 1,000 ML IV SCH (15:09)
[2018-12-28 18:08] LABS: Protein, Total 5.9 g/dL (6.2-8.2)
[2018-12-28 20:29] LABS: Glucose,Whole Blood 206 mg/dL (75-99)
[2018-12-29 05:47] LABS: Basophils % (A) 0 %; Eosinophils % (A) 0 %; HCT 24.6 % (39.0-53.0); Lymphocytes # (A) 0.9 k/uL (1.0-4.8); Lymphocytes % (A) 16 %; MCH 30.1 pg (25.0-35.0); MCHC 32.3 g/dL (31.0-37.0); MCV 93.1 fL (80.0-100.0); Mean Platelet Volume 7.2; Monocytes # (A) 0.2 k/uL (0-1.0); Monocytes % (A) 4 %; Neutrophils # (A) 4.1 k/uL (1.3-7.7); Neutrophils % (A) 78 %; Platelet Count 495 k/uL (150-450); RBC 2.64 m/uL (4.30-5.90); WBC 5.3 k/uL (3.8-10.6)
[2018-12-29 06:27] LABS: Calcium 8.5 mg/dL (8.4-10.2); Potassium 3.9 mmol/L (3.5-5.1)
--- NOTE | 2018-12-29 07:45 | XR ---
EXAMINATION TYPE: XR chest 1V portable DATE OF EXAM: 12/29/2018 COMPARISON: Prior chest x-ray 12/25/2018 HISTORY: Congestive heart failure TECHNIQUE: Single frontal view of the chest is obtained. FINDINGS: No pneumothorax. Heart size is stable. Aorta is dense. Bibasilar increased density persist s. Interstitium is increased. IMPRESSION: Findings suggest congestive heart failure with basilar effusion, follow-up recommended.
[2018-12-29] MEDS: FERROUS SULFATE 325 MG TAB PO SCH ×2 (08:24→17:28)
[2018-12-29] MEDS: SODIUM CHLORIDE 0.9% 1,000 ML IV SCH (08:24)
[2018-12-29] MEDS: MAGNESIUM OXIDE 400 MG TAB PO SCH (08:25)
[2018-12-29] MEDS: DIVALPROEX ER 500 MG TAB.ER.24H PO SCH ×2 (08:25→20:22)
[2018-12-29] MEDS: FAMOTIDINE 20 MG TAB PO SCH (08:25)
[2018-12-29] MEDS: FUROSEMIDE 40 MG TAB PO SCH ×2 (08:25→17:27)
[2018-12-29] MEDS: ACETAMINOPHEN TAB 325 MG TAB PO PRN (08:33)
[2018-12-29] MEDS: predniSONE 20 MG TAB PO SCH (08:34)
[2018-12-29 10:39] VITALS: BMI 27.8
--- NOTE | 2018-12-29 12:06 | P.PN ---
Subjective Progress Note Date: 12/29/18 Principal diagnosis: Left lower extremity femoral DVT, weakness The patient is seen today 12/28/2018 in follow-up in the intensive care unit. He is more awake and alert today. Feeling a bit stronger. He is maintaining good O2 saturations in the mid 90s on room air. He's afebrile. Slightly hypertensive. No shortness of breath, cough or congestion. He did undergo angiogram yesterday with plans to place a Sachse filter but was found to have one in place per vascular services. Urine is less bloody today. White count 8.9. Hemoglobin 8.1. Creatinine 2.92. He is status post 2 units of packed red blood cells since admission. Urine culture reveals no growth. Valorie ernst is currently on cefepime. Pepcid 20 mg IV push every 12 hours. His main complaint is that of a right shoulder pain. Orthopedics have been consulted. X-ray revealed bony irregularity at the greater tuberosity which could reflect underlying rotator cuff tendinopathy/tear. Moderate AC joint OA. Osteopenia. The patient is seen today 12/29/2017 in follow-up in the intensive care unit is awake and alert in no acute distress. Stronger today as compared to yesterday.. supervisory geographer a very good appetite. Swelling well without concern. Maintaining good O2 saturations in the 90s on room air. Chest x-ray reveals evidence of fluid volume overload. Basilar effusions noted. Urine culture reveals no growth. White count 5.3. Hemoglobin 8.0. Creatinine 2.87. Remains on ceftriaxone. He is on 60 mg daily per orthopedics for his right shoulder discomfort. IgG lambda is positive. Oncology has been consulted. Objective - Vital Signs Vital signs: Vital Signs Temp 97.2 F L 12/29/18 08:00 Pulse 60 12/29/18 11:00 Resp 13 12/29/18 11:00 BP 148/75 12/29/18 11:00 Pulse Ox 96 12/29/18 11:00 Intake & Output 12/28/18 12/29/18 12/29/18 18:59 06:59 18:59 Intake Total 120 890 380 Output Total 1390 1130 505 Balance -1270 -240 -125 Weight 85.5 kg 85.5 kg Intake: IV 120 240 60 Sodium Chloride 0.9% 1, 120 240 60 000 ml @ 20 mls/hr IV . Q24H [facility] Rx#:[id number] Oral 650 320 Output: Urine 1390 1130 505 Other: Voiding Method Indwelling Catheter Indwelling Catheter - Exam -GENERAL: The patient is alert and oriented x3, not in any acute distress. pale. Stronger today compared to yesterday. He does not seem to be in any form of respiratory distress for now. On room air. HEENT: Pupils are round and equally reacting to light. EOMI. No scleral icterus. No conjunctival pallor. Normocephalic, atraumatic. No pharyngeal erythema. No thyromegaly. CARDIOVASCULAR: S1 and S2 present. No murmurs, rubs, or gallops. -PULMONARY: Bilateral equal air entry. Bilateral crepitation heard bilaterally. ABDOMEN: Soft, nontender, nondistended, normoactive bowel sounds. No palpable organomegaly. MUSCULOSKELETAL: No joint swelling or deformity. -EXTREMITIES: No cyanosis, clubbing,. Bilateral leg edema. He has limitation movement of his right upper extremities, compared to the left side. However he feels generally weak Right shoulder is painful and swollen and warm NEUROLOGICAL: Gross neurological examination did not reveal any focal deficits. He has generalized weakness. His right upper extremity movement is limited by his shoulder problem. Both legs are weak but they look symmetrical. Cranial nerves are grossly intact. Sensation is intact. Meningeal signs are absent SKIN: No rashes.Examination of the skin revealed no evidence of significant rashes, suspicious appearing nevi or other concerning lesions. - Labs CBC & Chem 7: 12/29/18 05:13 12/29/18 05:13 Labs: Abnormal Lab Results - Last 24 Hours (Table) 12/28/18 12/28/18 12/29/18 Range/Units 05:27 20:27 05:13 RBC 2.64 L (4.30-5.90) m/uL Hgb 8.0 L (13.0-17.5) gm/dL Hct 24.6 L (39.0-53.0) % RDW 16.0 H (11.5-15.5) % Plt Count 495 H (150-450) k/uL Lymphocytes # 0.9 L (1.0-4.8) k/uL Sodium (137-145) mmol/L Carbon Dioxide (22-30) mmol/L BUN (9-20) mg/dL Creatinine (0.66-1.25) mg/dL Glucose (74-99) mg/dL POC Glucose (mg/dL) 206 H (75-99) mg/dL Total Protein (PEP) 5.9 L (6.2-8.2) g/dL 12/29/18 Range/Units 05:13 RBC (4.30-5.90) m/uL Hgb (13.0-17.5) gm/dL Hct (39.0-53.0) % RDW (11.5-15.5) % Plt Count (150-450) k/uL Lymphocytes # (1.0-4.8) k/uL Sodium 132 L (137-145) mmol/L Carbon Dioxide 20 L (22-30) mmol/L BUN 86 H (9-20) mg/dL Creatinine 2.87 H (0.66-1.25) mg/dL Glucose 125 H (74-99) mg/dL POC Glucose (mg/dL) (75-99) mg/dL Total Protein (PEP) (6.2-8.2) g/dL Assessment and Plan Assessment: Impression: #1 Generalized weakness, multifactorial. #2 Left lower extremity femoral DVT, previous IVC placement. #3 Anemia, status post 2 units packed red blood cells since admission. Current hemoglobin 8.0. #4 CVA with some mild weakness involving the right side and the patient was undergoing rehabilitation at [facility]. #5 Encephalopathy/confusion, secondary to above, improving. #6 Chronic lower extremity edema. #7 History of urinary tract infection. #8 Acute on chronic kidney disease. #9 Diastolic congestive heart failure with preserved left ventricular systolic function. Ejection fraction 55-60%. #10 Right shoulder pain/swelling, possibly related to fall. Orthopedics consulted. #11 IgG lambda positive Plan: The patient was seen and evaluated by Dr. Cline. Chest x-ray and labs reviewed. Basilar effusion noted. Remains on Lasix 40 mg twice a day. He is currently stable from the pulmonary and critical care standpoint. He could be transferred out of the intensive care unit today. The patient had a previous IVC filter placement. We will continue to follow and make further recommendations based on his clinical status. I, the cosigning physician, performed a history & physical examination of the patient. Lungs sounds with faint crackles in the posterior bases. Maintaining good O2 saturations in the 90s on room air. I discussed the assessment and plan of care with my nurse practitioner, Jeanie Bey. I attest to the above note as dictated by her.
--- NOTE | 2018-12-29 12:19 | P.PN ---
Subjective Patient seen in follow-up for acute kidney injury. Unknown baseline renal function. Renal function relatively stable - creatinine 2.87 today. He is maintained on Lasix 40 mg orally 2 times daily. He is nonoliguric. Dyspnea is improved. Oral intake is fair. No vomiting or diarrhea. 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 Vital signs are stable. General: The patient appeared well nourished and normally developed. HEENT: Head exam is unremarkable. Neck is without jugular venous distension. LUNGS: Breath sounds decreased. HEART: Rate and Rhythm are regular. First and second heart sounds normal. No murmurs, rubs or gallops. ABDOMEN: Abdominal exam reveals normal bowel sounds. Non-tender and non- distended. No evidence of peritonitis. EXTREMITITES: Trace edema. Objective - Vital Signs Vital signs: Vital Signs Temp 98.1 F 12/29/18 12:00 Pulse 53 L 12/29/18 12:00 Resp 11 L 12/29/18 12:00 BP 150/72 12/29/18 12:00 Pulse Ox 93 L 12/29/18 12:00 Intake & Output 12/28/18 12/29/18 12/29/18 18:59 06:59 18:59 Intake Total 120 890 380 Output Total 1390 1130 505 Balance -1270 -240 -125 Weight 85.5 kg 85.5 kg Intake: IV 120 240 60 Sodium Chloride 0.9% 1, 120 240 60 000 ml @ 20 mls/hr IV . Q24H [facility] Rx#:[id number] Oral 650 320 Output: Urine 1390 1130 505 Other: Voiding Method Indwelling Catheter Indwelling Catheter - Labs CBC & Chem 7: 12/29/18 05:13 12/29/18 05:13 Labs: Abnormal Lab Results - Last 24 Hours (Table) 12/28/18 12/28/18 12/29/18 Range/Units 05:27 20:27 05:13 RBC 2.64 L (4.30-5.90) m/uL Hgb 8.0 L (13.0-17.5) gm/dL Hct 24.6 L (39.0-53.0) % RDW 16.0 H (11.5-15.5) % Plt Count 495 H (150-450) k/uL Lymphocytes # 0.9 L (1.0-4.8) k/uL Sodium (137-145) mmol/L Carbon Dioxide (22-30) mmol/L BUN (9-20) mg/dL Creatinine (0.66-1.25) mg/dL Glucose (74-99) mg/dL POC Glucose (mg/dL) 206 H (75-99) mg/dL Total Protein (PEP) 5.9 L (6.2-8.2) g/dL 12/29/18 Range/Units 05:13 RBC (4.30-5.90) m/uL Hgb (13.0-17.5) gm/dL Hct (39.0-53.0) % RDW (11.5-15.5) % Plt Count (150-450) k/uL Lymphocytes # (1.0-4.8) k/uL Sodium 132 L (137-145) mmol/L Carbon Dioxide 20 L (22-30) mmol/L BUN 86 H (9-20) mg/dL Creatinine 2.87 H (0.66-1.25) mg/dL Glucose 125 H (74-99) mg/dL POC Glucose (mg/dL) (75-99) mg/dL Total Protein (PEP) (6.2-8.2) g/dL Assessment and Plan Plan: Assessment: 1. Acute kidney injury secondary to ATN secondary to cardiorenal syndrome. Renal function a little better today. Creatinine 2.87 today. Creatinine on 12/07/2018 was 2.1 which was during his admission at [facility] in [place]. No other records available. No evidence of hydronephrosis noted on renal ultrasound. Serologic workup has been negative except serum immunofixation is positive for IgG lambda. Urine eosinophils also positive at 3%. 2. Volume overload secondary to CHF. Improved. 3. Diastolic CHF. 4. Left lower extremity DVT. Currently not on anticoagulation as he developed hematuria and anemia. ?IVC filter. 5. Proteinuria. UPC 2.48. Rule out GN. Serologies negative so far. Urine eosinophils mildly positive at 1% - repeat 3%. SPEP positive for IgG Lambda - oncology following. 6. Hypomagnesemia secondary to diuresis. S/p replacement. Better. Plan: Maintain Lasix 40 mg orally twice daily. Maintain prednisone 60 mg daily. This will be tapered over the next 1-2 months. Continue to monitor renal function and urine output. Patient will need a kidney biopsy for definitive diagnosis down the road, especially if no improvement in his renal function.
--- NOTE | 2018-12-29 12:39 | P.PN ---
Subjective This is a pleasant 68 years old male with past medical history of congestive heart failure, atrial fibrillation, hypertension, hyperlipidemia, syncope, hypothyroidism, dysphagia. Patient is never been in this hospital before and there is no records or previous labs for him. He was sent from his ECF for generalized weakness. Patient himself said he is poor historian, his fully awake and oriented but he has memory difficulty which could be part of his dementia or metabolic encephalopathy. Patient denies chest pain however he reports some breathing difficulty although he does not use his accessory muscles. He denies abdominal pain or tenderness. No nausea vomiting. He had regular bowel movements. He denies urinary complaints and he cannot remember if he has kidney disease. He has difficulty moving his right upper extremity and his right shoulder looks painful and swollen. Patient states that he was in ECF for 3 weeks, he could not remember why he was in the hospital before that but he states that he had stroke with right-sided weakness In the emergency room patient was found to have creatinine of 3.0 with no previous records to compare. Potassium 7.0, Came down with therapy to 6.7. Hemoglobin of 7 In the emergency room he got insulin 10 units with D50 and insulin 10 U x I, sodium bicarb and calcium gluconate 1 g, also patient got 1 unit of blood transfusion as emergency however when he was awake he gave permission to give a blood transfusion. Risks benefits and alternatives are explained to the patient and he agrees. Vitals shows mild bradycardia in mid 50s. Rest of vitals are stable. Patient has leukocytosis of 14.4, hemoglobin of 7.0, platelets 707. Potassium elevated 7 and 6.7. Sugar is controlled, proBNP is elevated at 23,000, liver enzymes not elevated. Troponin is negative. EKG showing normal sinus rhythm at [address]-T abnormalities. QTC 375. Chest x-ray showing bilateral pleural effusions and interstitial pulmonary edema. UA is suspicious for infection. Urine culture is ordered 12/25/2018 Patient remains in the ICU as overflow bed. He is feels a little better. Denied chest pain however he has some dyspnea. His still has right arm swelling and right shoulder swelling. Bilateral leg swelling. Vitals stable but he is bradycardic. He is saturating 95 on room air. He still has Roberts catheter with hematuria. His WBC today is 12.1. Hemoglobin 8.5. INR 1.2. Creatinine 3.0 and potassium 5.7. Patient has Doppler of the lower extremity showing left DVT. I discussed the case with vascular surgery yesterday and Dr. Matute. Patient could not tolerate heparin and was stopped. Patient received blood transfusion and his hemoglobin and vitals are stable this morning. Patient is a started on iron pills. Her consult is our following the case 12/26/18 pt feels little better today he was sitting in bed fully awake and oriented to the surrounding, he did not have specific complaint. pt still has roberts cath in place and his hematuria is clearing up , his urine today was almost yellow in color. vascular and pulmonary/critical care input is appreciated. pt might need IVC filter . 12/27/2018 Patient sitting in bed with no chest pain or dyspnea. He thinks he is improving. He is a stable hemodynamically. He denies any pain. Roberts catheter is in place. His urine is pink today again after it was clearing up yesterday. Some of call urology consult. Patient is being followed by pulmonary/critical care team and vascular surgery team for he has DVT. Patient has been evaluated by IVC filter. There is contraindication to heparin now, as heparin was started first day he came in and his hemoglobin dropped in one hour from 8.2 down to 7, and he developed worsening hematuria at that time and we have to give him another unit of blood transfusion at that time, his hemoglobin currently is a stable at this 0.3, case was discussed with Dr. Matute. And his urine culture is negative, although is on antibiotic his leukocytosis is improving and his white cell count is normal today at 10.6K. Creatinine is 3.2. Sodium 136. Case has been followed also by hematology and nephrology and their Workup as ordered. Discussed with staff 12/28/2018 Patient remains in the ICU, generally weak, he is fully awake and oriented with no chest pain or dyspnea. He still have Roberts catheter which is clearing up from his hematuria, patient has been evaluated by urologist and recommended workup later on to be done and nothing urgent. Patient has vascular team evaluated the patient, he underwent procedure and found to have IVC filter already installed previously, no new filter needed. Orthopedic team evaluated the patient again and he had aspiration of from his right shoulder Serology test showing serum immunofixation is positive for IgG lambda. Urine eosinophils also positive at 3%. Radiation Oncology Therapist started the patient on prednisone with recommendation for kidney biopsy later on Vitals are stable. Hemoglobin stable around 8.1, and review of his anemia of chronic disease plus losing some of blood through the urine contributing to some anemia of acute blood loss. Creatinine stable at 2.9 and nephrology team are following. 01/08/2019 Patient improving today, is more awake and cold than before. He has no pain. Breathing is quiet. His hematuria is clearing up. He is hemodynamically stable and he is saturating 93% on room air. looks improving with no leukocytosis, hemoglobin is stable. Creatinine little bit listed at 2.87. ESR is 127. Zyrtec shoulder looks less swollen and tender today. Patient possibly transferred out of the ICU to the general medical floor, cleared by critical care team CONSTITUTIONAL: No fever. HEENT: No recent visual problems or hearing problems. Denied any sore throat. CARDIOVASCULAR: no syncope. PULMONARY: no hemoptysis. GASTROINTESTINAL: No diarrhea, no nausea, no vomiting, no abdominal pain. Normoactive bowel sounds. NEUROLOGICAL: No headaches, no numbness. HEMATOLOGICAL: Denies any bleeding or petechiae. ENDOCRINE: Denies any polyuria or polydipsia. Medication: Tylenol, ceftriaxone, Depakote, ferrous sulfate, Lasix Objective - Vital Signs Vital signs: Vital Signs Temp 98.1 F 12/29/18 12:00 Pulse 53 L 12/29/18 12:00 Resp 11 L 12/29/18 12:00 BP 150/72 12/29/18 12:00 Pulse Ox 93 L 12/29/18 12:00 Intake & Output 12/28/18 12/29/18 12/29/18 18:59 06:59 18:59 Intake Total 120 890 380 Output Total 1390 1130 505 Balance -1270 -240 -125 Weight 85.5 kg 85.5 kg Intake: IV 120 240 60 Sodium Chloride 0.9% 1, 120 240 60 000 ml @ 20 mls/hr IV . Q24H [facility] Rx#:[id number] Oral 650 320 Output: Urine 1390 1130 505 Other: Voiding Method Indwelling Catheter Indwelling Catheter - Exam -GENERAL: The patient is alert and oriented x3, not in any acute distress. pale. Forgetful HEENT: Pupils are round and equally reacting to light. EOMI. No scleral icterus. No conjunctival pallor. Normocephalic, atraumatic. No pharyngeal erythema. No thyromegaly. CARDIOVASCULAR: S1 and S2 present. No murmurs, rubs, or gallops. -PULMONARY: Bilateral equal air entry. Bilateral crepitation and scattered whe ezing.. ABDOMEN: Soft, nontender, nondistended, normoactive bowel sounds. No palpable organomegaly. MUSCULOSKELETAL: No joint swelling or deformity. -EXTREMITIES: No cyanosis, clubbing,. Bilateral leg edema. He has limitation movement of his right upper extremities, compared to the left side. However he feels generally weak Right shoulder is painful and swollen and warm NEUROLOGICAL: Gross neurological examination did not reveal any focal deficits. He has generalized weakness. His right upper extremity movement is limited by his shoulder problem. Both legs are weak but they look symmetrical. Cranial nerves are grossly intact. Sensation is intact. Meningeal signs are absent SKIN: No rashes. - Labs CBC & Chem 7: 12/29/18 05:13 12/29/18 05:13 Labs: Abnormal Lab Results - Last 24 Hours (Table) 12/28/18 12/28/18 12/29/18 Range/Units 05:27 20:27 05:13 RBC 2.64 L (4.30-5.90) m/uL Hgb 8.0 L (13.0-17.5) gm/dL Hct 24.6 L (39.0-53.0) % RDW 16.0 H (11.5-15.5) % Plt Count 495 H (150-450) k/uL Lymphocytes # 0.9 L (1.0-4.8) k/uL Sodium (137-145) mmol/L Carbon Dioxide (22-30) mmol/L BUN (9-20) mg/dL Creatinine (0.66-1.25) mg/dL Glucose (74-99) mg/dL POC Glucose (mg/dL) 206 H (75-99) mg/dL Total Protein (PEP) 5.9 L (6.2-8.2) g/dL 12/29/18 Range/Units 05:13 RBC (4.30-5.90) m/uL Hgb (13.0-17.5) gm/dL Hct (39.0-53.0) % RDW (11.5-15.5) % Plt Count (150-450) k/uL Lymphocytes # (1.0-4.8) k/uL Sodium 132 L (137-145) mmol/L Carbon Dioxide 20 L (22-30) mmol/L BUN 86 H (9-20) mg/dL Creatinine 2.87 H (0.66-1.25) mg/dL Glucose 125 H (74-99) mg/dL POC Glucose (mg/dL) (75-99) mg/dL Total Protein (PEP) (6.2-8.2) g/dL Assessment and Plan Assessment: Possible acute DVT, status post IVC filter Hematuria, improving Acute kidney injury, on chronic kidney disease serum immunofixation is positive for IgG lambda. Urine eosinophils also positive at 3%. Started on prednisone. We'll need kidney biopsy later Right shoulder swelling, rule out septic arthritis Hyperkalemia, resolved Elements of acute blood loss anemia and anemia of chronic disease. Hemoglobin stable interstitial edema with bilateral pleural effusion. Improvement Possible Urinary tract infection Bilateral leg swelling History of stroke with mild right hemiparesis as per patient Plan: This is a pleasant 68 years old male who presents with several problems including hematuria and acute DVT. Patient admitted to the intensive care unit. Patient could not tolerate heparin drip once started first day he came in and he blacked through his Roberts catheter. At that time needed blood transfusion. Vascular surgery in case for evaluation for possible IVC filter. Patient already has an IVC filter. Patient already is been evaluated by inspector rubber stamp die, director risk has been consulted by emergency room team. Patient is currently on Lasix. Call orthopedic consult is appreciated , patient underwent aspiration of his right shoulder, has DVT of lower ext on Doppler but negative for clot in right upper extremity. Monitor potassium level and treated accordingly. . echocardiogram EF 55%. urine culture is negative for infection Labs and medication were reviewed.. Continue same treatment. Continue with symptomatic treatment. Resume home medication. Monitor lytes and vitals. DVT and GI prophylaxis. Further recommendations of the clinical course of the patient DVT prophylaxis: no heparin GI Prophylaxis: Pepcid Prognosis is guarded
[2018-12-29 15:23] LABS: Albumin 1.44 g/dL (3.80-4.90); Gamma Globulin 2.49 g/dL (0.70-1.50)
[2018-12-30] MEDS: predniSONE 20 MG TAB PO SCH (07:24)
[2018-12-30] MEDS: FERROUS SULFATE 325 MG TAB PO SCH ×2 (07:24→16:40)
[2018-12-30] MEDS: DIVALPROEX ER 500 MG TAB.ER.24H PO SCH ×2 (07:25→21:02)
[2018-12-30] MEDS: FAMOTIDINE 20 MG TAB PO SCH (07:25)
[2018-12-30] MEDS: FUROSEMIDE 40 MG TAB PO SCH ×2 (07:25→16:40)
[2018-12-30] MEDS: MAGNESIUM OXIDE 400 MG TAB PO SCH (07:25)
[2018-12-30 07:45] LABS: Glucose,Whole Blood 132 mg/dL (75-99)
[2018-12-30 10:19] LABS: Calcium 8.6 mg/dL (8.4-10.2); Potassium 3.8 mmol/L (3.5-5.1)
[2018-12-30 10:28] LABS: Basophils % (A) 0 %; Eosinophils % (A) 0 %; HCT 27.6 % (39.0-53.0); HGB 8.8 gm/dL (13.0-17.5); Lymphocytes # (A) 1.2 k/uL (1.0-4.8); Lymphocytes % (A) 12 %; MCH 29.9 pg (25.0-35.0); MCHC 31.9 g/dL (31.0-37.0); MCV 93.8 fL (80.0-100.0); Mean Platelet Volume 7.6; Monocytes # (A) 0.5 k/uL (0-1.0); Monocytes % (A) 5 %; Neutrophils # (A) 8.2 k/uL (1.3-7.7); Neutrophils % (A) 81 %; Platelet Count 529 k/uL (150-450); RBC 2.94 m/uL (4.30-5.90); RDW 15.9 % (11.5-15.5); WBC 10.1 k/uL (3.8-10.6)
--- NOTE | 2018-12-30 11:39 | P.PN ---
Subjective This is a pleasant 68 years old male with past medical history of congestive heart failure, atrial fibrillation, hypertension, hyperlipidemia, syncope, hypothyroidism, dysphagia. Patient is never been in this hospital before and there is no records or previous labs for him. He was sent from his ECF for generalized weakness. Patient himself said he is poor historian, his fully awake and oriented but he has memory difficulty which could be part of his dementia or metabolic encephalopathy. Patient denies chest pain however he reports some breathing difficulty although he does not use his accessory muscles. He denies abdominal pain or tenderness. No nausea vomiting. He had regular bowel movements. He denies urinary complaints and he cannot remember if he has kidney disease. He has difficulty moving his right upper extremity and his right shoulder looks painful and swollen. Patient states that he was in ECF for 3 weeks, he could not remember why he was in the hospital before that but he states that he had stroke with right-sided weakness In the emergency room patient was found to have creatinine of 3.0 with no previous records to compare. Potassium 7.0, Came down with therapy to 6.7. Hemoglobin of 7 In the emergency room he got insulin 10 units with D50 and insulin 10 U x I, sodium bicarb and calcium gluconate 1 g, also patient got 1 unit of blood transfusion as emergency however when he was awake he gave permission to give a blood transfusion. Risks benefits and alternatives are explained to the patient and he agrees. Vitals shows mild bradycardia in mid 50s. Rest of vitals are stable. Patient has leukocytosis of 14.4, hemoglobin of 7.0, platelets 707. Potassium elevated 7 and 6.7. Sugar is controlled, proBNP is elevated at 23,000, liver enzymes not elevated. Troponin is negative. EKG showing normal sinus rhythm at [address]-T abnormalities. QTC 375. Chest x-ray showing bilateral pleural effusions and interstitial pulmonary edema. UA is suspicious for infection. Urine culture is ordered 12/25/2018 Patient remains in the ICU as overflow bed. He is feels a little better. Denied chest pain however he has some dyspnea. His still has right arm swelling and right shoulder swelling. Bilateral leg swelling. Vitals stable but he is bradycardic. He is saturating 95 on room air. He still has Roberts catheter with hematuria. His WBC today is 12.1. Hemoglobin 8.5. INR 1.2. Creatinine 3.0 and potassium 5.7. Patient has Doppler of the lower extremity showing left DVT. I discussed the case with vascular surgery yesterday and Dr. Matute. Patient could not tolerate heparin and was stopped. Patient received blood transfusion and his hemoglobin and vitals are stable this morning. Patient is a started on iron pills. Her consult is our following the case 12/26/18 pt feels little better today he was sitting in bed fully awake and oriented to the surrounding, he did not have specific complaint. pt still has roberts cath in place and his hematuria is clearing up , his urine today was almost yellow in color. vascular and pulmonary/critical care input is appreciated. pt might need IVC filter . 12/27/2018 Patient sitting in bed with no chest pain or dyspnea. He thinks he is improving. He is a stable hemodynamically. He denies any pain. Roberts catheter is in place. His urine is pink today again after it was clearing up yesterday. Some of call urology consult. Patient is being followed by pulmonary/critical care team and vascular surgery team for he has DVT. Patient has been evaluated by IVC filter. There is contraindication to heparin now, as heparin was started first day he came in and his hemoglobin dropped in one hour from 8.2 down to 7, and he developed worsening hematuria at that time and we have to give him another unit of blood transfusion at that time, his hemoglobin currently is a stable at this 0.3, case was discussed with Dr. Matute. And his urine culture is negative, although is on antibiotic his leukocytosis is improving and his white cell count is normal today at 10.6K. Creatinine is 3.2. Sodium 136. Case has been followed also by hematology and nephrology and their Workup as ordered. Discussed with staff 12/28/2018 Patient remains in the ICU, generally weak, he is fully awake and oriented with no chest pain or dyspnea. He still have Roberts catheter which is clearing up from his hematuria, patient has been evaluated by urologist and recommended workup later on to be done and nothing urgent. Patient has vascular team evaluated the patient, he underwent procedure and found to have IVC filter already installed previously, no new filter needed. Orthopedic team evaluated the patient again and he had aspiration of from his right shoulder Serology test showing serum immunofixation is positive for IgG lambda. Urine eosinophils also positive at 3%. Nuclear Radiation Engineer started the patient on prednisone with recommendation for kidney biopsy later on Vitals are stable. Hemoglobin stable around 8.1, and review of his anemia of chronic disease plus losing some of blood through the urine contributing to some anemia of acute blood loss. Creatinine stable at 2.9 and nephrology team are following. 12/29/2018 Patient improving today, is more awake and cold than before. He has no pain. Breathing is quiet. His hematuria is clearing up. He is hemodynamically stable and he is saturating 93% on room air. looks improving with no leukocytosis, hemoglobin is stable. Creatinine little bit listed at 2.87. ESR is 127. Zyrtec shoulder looks less swollen and tender today. Patient possibly transferred out of the ICU to the general medical floor, cleared by critical care team 12/30/2018 Patient was transferred to the general medical floor, he feels better. He is fully awake and oriented. He is not in pain or distress. No dyspnea. Dominant or chest pain. Tolerating diet well. He has kidney disease with hematuria is clearing up through the Roberts catheter, however its mildly T colored. Creatinine today is trending down to 2.5. Patient remains on steroids per early childhood specialist recommendation. Patient's with no fever or leukocytosis so stopped Antibiotics, doubt patient has UTI. Nephrology input is appreciated. CONSTITUTIONAL: No fever. HEENT: No recent visual problems or hearing problems. Denied any sore throat. CARDIOVASCULAR: no syncope. PULMONARY: no hemoptysis. GASTROINTESTINAL: No diarrhea, no nausea, no vomiting, no abdominal pain. Normoactive bowel sounds. NEUROLOGICAL: No headaches, no numbness. HEMATOLOGICAL: Denies any bleeding or petechiae. ENDOCRINE: Denies any polyuria or polydipsia. Medication: Tylenol, ceftriaxone, Depakote, ferrous sulfate, Lasix Objective - Vital Signs Vital signs: Vital Signs Temp 97.6 F 12/30/18 07:02 Pulse 44 L 12/30/18 07:02 Resp 15 12/30/18 07:02 BP 171/70 12/30/18 07:02 Pulse Ox 94 L 12/30/18 07:02 Intake & Output 12/29/18 12/30/18 12/30/18 18:59 06:59 18:59 Intake Total 380 Output Total 505 Balance -125 Weight 85.5 kg 79.5 kg Intake: IV 60 Sodium Chloride 0.9% 1, 60 000 ml @ 20 mls/hr IV . Q24H [facility] Rx#:[id number] Oral 320 Output: Urine 505 Other: Voiding Method Indwelling Catheter Indwelling Catheter - Exam -GENERAL: The patient is alert and oriented x3, not in any acute distress. pale. Forgetful HEENT: Pupils are round and equally reacting to light. EOMI. No scleral icterus. No conjunctival pallor. Normocephalic, atraumatic. No pharyngeal erythema. No thyromegaly. CARDIOVASCULAR: S1 and S2 present. No murmurs, rubs, or gallops. -PULMONARY: Bilateral equal air entry. Bilateral crepitation and scattered w heezing.. ABDOMEN: Soft, nontender, nondistended, normoactive bowel sounds. No palpable organomegaly. MUSCULOSKELETAL: No joint swelling or deformity. -EXTREMITIES: No cyanosis, clubbing,. Bilateral leg edema. He has limitation movement of his right upper extremities, compared to the left side. However he feels generally weak Right shoulder is painful and swollen and warm NEUROLOGICAL: Gross neurological examination did not reveal any focal deficits. He has generalized weakness. His right upper extremity movement is limited by his shoulder problem. Both legs are weak but they look symmetrical. Cranial nerves are grossly intact. Sensation is intact. Meningeal signs are absent SKIN: No rashes. - Labs CBC & Chem 7: 12/30/18 09:44 12/30/18 09:44 Labs: Abnormal Lab Results - Last 24 Hours (Table) 12/28/18 12/30/18 12/30/18 Range/Units 05:27 07:30 09:44 RBC 2.94 L (4.30-5.90) m/uL Hgb 8.8 L (13.0-17.5) gm/dL Hct 27.6 L (39.0-53.0) % RDW 15.9 H (11.5-15.5) % Plt Count 529 H (150-450) k/uL Neutrophils # 8.2 H (1.3-7.7) k/uL Sodium (137-145) mmol/L BUN (9-20) mg/dL Creatinine (0.66-1.25) mg/dL Glucose (74-99) mg/dL POC Glucose (mg/dL) 132 H (75-99) mg/dL Albumin (PEP) 1.44 L (3.80-4.90) g/dL Gamma Globulins 2.49 H (0.70-1.50) g/dL 12/30/18 Range/Units 09:44 RBC (4.30-5.90) m/uL Hgb (13.0-17.5) gm/dL Hct (39.0-53.0) % RDW (11.5-15.5) % Plt Count (150-450) k/uL Neutrophils # (1.3-7.7) k/uL Sodium 134 L (137-145) mmol/L BUN 97 H (9-20) mg/dL Creatinine 2.50 H (0.66-1.25) mg/dL Glucose 130 H (74-99) mg/dL POC Glucose (mg/dL) (75-99) mg/dL Albumin (PEP) (3.80-4.90) g/dL Gamma Globulins (0.70-1.50) g/dL Assessment and Plan Assessment: Possible acute DVT, status post IVC filter Hematuria, improving Acute kidney injury, on chronic kidney disease serum immunofixation is positive for IgG lambda. Urine eosinophils also positive at 3%. Started on prednisone. We'll need kidney biopsy later Right shoulder swelling, rule out septic arthritis Hyperkalemia, resolved Elements of acute blood loss anemia and anemia of chronic disease. Hemoglobin stable interstitial edema with bilateral pleural effusion. Improvement Possible Urinary tract infection Bilateral leg swelling History of stroke with mild right hemiparesis as per patient Plan: This is a pleasant 68 years old male who presents with several problems including hematuria and acute DVT. Patient admitted to the intensive care unit. Patient could not tolerate heparin drip once started first day he came in and he blacked through his Roberts catheter. At that time needed blood transfusion. Vascular surgery in case for evaluation for possible IVC filter. Patient already has an IVC filter. Patient already is been evaluated by early childhood specialist, stranding machine operator helper has been consulted by emergency room team. Patient is currently on Lasix. Call orthopedic consult is appreciated , patient underwent aspiration of his right shoulder, has DVT of lower ext on Doppler but negative for clot in right upper extremity. Monitor potassium level and treated accordingly. . echocardiogram EF 55%. urine culture is negative for infection Labs and medication were reviewed.. Continue same treatment. Continue with symptomatic treatment. Resume home medication. Monitor lytes and vitals. DVT and GI prophylaxis. Further recommendations of the clinical course of the patient DVT prophylaxis: no heparin GI Prophylaxis: Pepcid Prognosis is guarded
[2018-12-30 12:22] LABS: Glucose,Whole Blood 149 mg/dL (75-99)
--- NOTE | 2018-12-30 13:37 | P.PN ---
Subjective Progress Note Date: 12/30/18 Principal diagnosis: Left lower extremity femoral DVT, weakness The patient is seen today 12/28/2018 in follow-up in the intensive care unit. He is more awake and alert today. Feeling a bit stronger. He is maintaining good O2 saturations in the mid 90s on room air. He's afebrile. Slightly hypertensive. No shortness of breath, cough or congestion. He did undergo angiogram yesterday with plans to place a Wallace filter but was found to have one in place per vascular services. Urine is less bloody today. White count 8.9. Hemoglobin 8.1. Creatinine 2.92. He is status post 2 units of packed red blood cells since admission. Urine culture reveals no growth. Patti ent is currently on cefepime. Pepcid 20 mg IV push every 12 hours. His main complaint is that of a right shoulder pain. Orthopedics have been consulted. X-ray revealed bony irregularity at the greater tuberosity which could reflect underlying rotator cuff tendinopathy/tear. Moderate AC joint OA. Osteopenia. The patient is seen today 12/29/2017 in follow-up in the intensive care unit is awake and alert in no acute distress. Stronger today as compared to yesterday.. 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 Swelling well without concern. Maintaining good O2 saturations in the 90s on room air. Chest x-ray reveals evidence of fluid volume overload. Basilar effusions noted. Urine culture reveals no growth. White count 5.3. Hemoglobin 8.0. Creatinine 2.87. Remains on ceftriaxone. He is on 60 mg daily per orthopedics for his right shoulder discomfort. IgG lambda is positive. Oncology has been consulted. On 12/30/2018 patient seen in follow-up on medical surgical floor. He is awake and alert, in no acute distress, resting quietly in bed, denies any difficulty breathing, denies any specific complaints, still has some right shoulder tenderness, but no acute distress, room air pulse ox is 94%, lung sounds are clear, diminished at the bases, patient afebrile. Urine culture showed no growth. Today's labs have been reviewed, showed white blood cell count of 10.1, hemoglobin of 8.8, serum sodium is improving up to 134, the rest of the electrolytes were within normal limits, renal profile showed BUN of 97, creatinine 2.5, slightly improved. No new chest x-rays today. no cough or congestion. Objective - Vital Signs Vital signs: Vital Signs Temp 97.6 F 12/30/18 07:02 Pulse 44 L 12/30/18 07:02 Resp 15 12/30/18 07:02 BP 171/70 12/30/18 07:02 Pulse Ox 94 L 12/30/18 07:02 Intake & Output 12/29/18 12/30/18 12/30/18 18:59 06:59 18:59 Intake Total 380 Output Total 505 Balance -125 Weight 85.5 kg 79.5 kg Intake: IV 60 Sodium Chloride 0.9% 1, 60 000 ml @ 20 mls/hr IV . Q24H SAMANTHA Rx#:[id number] Oral 320 Output: Urine 505 Other: Voiding Method Indwelling Catheter Indwelling Catheter - Exam GENERAL EXAM: Alert, pleasant, 68-year-old white male comfortable in no apparent distress. HEAD: Normocephalic/atraumatic. EYES: Normal reaction of pupils, equal size. Conjunctiva pink, sclera white. NOSE: Clear with pink turbinates. THROAT: No erythema or exudates. NECK: No masses, no JVD, no thyroid enlargement, no adenopathy. CHEST: No chest wall deformity. Symmetrical expansion. LUNGS: Equal air entry with no crackles, wheeze, rhonchi or dullness. CVS: Regular rate and rhythm, normal S1 and S2, no gallops, no murmurs, no rubs ABDOMEN: Soft, nontender. No hepatosplenomegaly, normal bowel sounds, no guarding or rigidity. EXTREMITIES: No clubbing, lower extremity edema, some right-sided weakness, and limited range of motion in the right shoulder related to pain, right shoulder is painful and swollen but not warm on today's exam MUSCULOSKELETAL: Muscle strength and tone normal. SPINE: No scoliosis or deformity SKIN: No rashes CENTRAL NERVOUS SYSTEM: Alert and oriented -3. No focal deficits, tone is normal in all 4 extremities. PSYCHIATRIC: Alert and oriented -3. Appropriate affect. Intact judgment and insight. - Labs CBC & Chem 7: 12/30/18 09:44 12/30/18 09:44 Labs: Abnormal Lab Results - Last 24 Hours (Table) 12/28/18 12/30/18 12/30/18 Range/Units 05:27 07:30 09:44 RBC 2.94 L (4.30-5.90) m/uL Hgb 8.8 L (13.0-17.5) gm/dL Hct 27.6 L (39.0-53.0) % RDW 15.9 H (11.5-15.5) % Plt Count 529 H (150-450) k/uL Neutrophils # 8.2 H (1.3-7.7) k/uL Sodium (137-145) mmol/L BUN (9-20) mg/dL Creatinine (0.66-1.25) mg/dL Glucose (74-99) mg/dL POC Glucose (mg/dL) 132 H (75-99) mg/dL Albumin (PEP) 1.44 L (3.80-4.90) g/dL Gamma Globulins 2.49 H (0.70-1.50) g/dL 12/30/18 12/30/18 Range/Units 09:44 12:01 RBC (4.30-5.90) m/uL Hgb (13.0-17.5) gm/dL Hct (39.0-53.0) % RDW (11.5-15.5) % Plt Count (150-450) k/uL Neutrophils # (1.3-7.7) k/uL Sodium 134 L (137-145) mmol/L BUN 97 H (9-20) mg/dL Creatinine 2.50 H (0.66-1.25) mg/dL Glucose 130 H (74-99) mg/dL POC Glucose (mg/dL) 149 H (75-99) mg/dL Albumin (PEP) (3.80-4.90) g/dL Gamma Globulins (0.70-1.50) g/dL Assessment and Plan Plan: Assessment: #1 Generalized weakness, multifactorial. #2 Left lower extremity femoral DVT, previous IVC placement. #3 Anemia, status post 2 units packed red blood cells since admission. Current hemoglobin 8.0. #4 CVA with some mild weakness involving the right side and the patient was undergoing [facility] at [facility]. #5 Encephalopathy/confusion, secondary to above, improving. #6 Chronic lower extremity edema. #7 History of urinary tract infection. #8 Acute on chronic kidney disease. #9 Diastolic congestive heart failure with preserved left ventricular systolic function. Ejection fraction 55-60%. #10 Right shoulder pain/swelling, possibly related to fall. Orthopedics consulted. #11 IgG lambda positive Plan: Patient is stable from pulmonary perspective, continue current medical treatment, maintain aspiration precautions, yesterday chest x-ray shows left basilar effusion, he remains on oral Lasix, nephrology is following, renal profile is relatively stable. Patient denies any difficulty breathing chest pain. Vital signs are stable. We'll follow on as-needed basis. I performed a history & physical examination of the patient and discussed their management with my nurse practitioner, Twyla Butts. I reviewed the nurse practitioner's note and agree with the documented findings and plan of care. Lung sounds are positive for clear breath sounds are diminished breath sounds at the bases. The findings and the impression was discussed with the patient. I attest to the documentation by the nurse practitioner. Time with Patient: Less than 30
--- NOTE | 2018-12-30 14:56 | P.PN ---
Subjective Progress Note Date: 12/30/18 Principal diagnosis: Anemia Patient seen today in follow-up, patient is very weak, he is having someone feed him. Patient is tearful and states "I can't walk", when asked for how long he said for 3 weeks. Objective - Vital Signs Vital signs: Vital Signs Temp 97.6 F 12/30/18 07:02 Pulse 44 L 12/30/18 07:02 Resp 15 12/30/18 07:02 BP 171/70 12/30/18 07:02 Pulse Ox 94 L 12/30/18 07:02 Intake & Output 12/29/18 12/30/18 12/30/18 18:59 06:59 18:59 Intake Total 380 Output Total 505 Balance -125 Weight 85.5 kg 79.5 kg Intake: IV 60 Sodium Chloride 0.9% 1, 60 000 ml @ 20 mls/hr IV . Q24H SAMANTHA Rx#:[id number] Oral 320 Output: Urine 505 Other: Voiding Method Indwelling Catheter Indwelling Catheter - Constitutional General appearance: Present: severe distress, thin - EENT Eyes: Present: anicteric sclerae, EOMI - Respiratory Respiratory: bilateral: CTA - Cardiovascular Rhythm: regular Heart sounds: normal: S1, S2 - Peripheral edema leg Peripheral Edema: bilateral: None - Gastrointestinal General gastrointestinal: Present: soft - Integumentary Integumentary: Present: pale - Psychiatric Psychiatric Comment(s): Patient is alert, oriented to self and place, slow to process information? I am not able to be certain if he understands his situation. He started to cry when I began discussing his lab results. Psychiatric: Absent: appropriate affect, intact judgment & insight - Labs CBC & Chem 7: 12/30/18 09:44 12/30/18 09:44 Labs: Abnormal Lab Results - Last 24 Hours (Table) 12/28/18 12/30/18 12/30/18 Range/Units 05:27 07:30 09:44 RBC 2.94 L (4.30-5.90) m/uL Hgb 8.8 L (13.0-17.5) gm/dL Hct 27.6 L (39.0-53.0) % RDW 15.9 H (11.5-15.5) % Plt Count 529 H (150-450) k/uL Neutrophils # 8.2 H (1.3-7.7) k/uL Sodium (137-145) mmol/L BUN (9-20) mg/dL Creatinine (0.66-1.25) mg/dL Glucose (74-99) mg/dL POC Glucose (mg/dL) 132 H (75-99) mg/dL Albumin (PEP) 1.44 L (3.80-4.90) g/dL Gamma Globulins 2.49 H (0.70-1.50) g/dL 12/30/18 12/30/18 Range/Units 09:44 12:01 RBC (4.30-5.90) m/uL Hgb (13.0-17.5) gm/dL Hct (39.0-53.0) % RDW (11.5-15.5) % Plt Count (150-450) k/uL Neutrophils # (1.3-7.7) k/uL Sodium 134 L (137-145) mmol/L BUN 97 H (9-20) mg/dL Creatinine 2.50 H (0.66-1.25) mg/dL Glucose 130 H (74-99) mg/dL POC Glucose (mg/dL) 149 H (75-99) mg/dL Albumin (PEP) (3.80-4.90) g/dL Gamma Globulins (0.70-1.50) g/dL Assessment and Plan (1) Anemia Narrative/Plan: Anemia workup thus far more suggestive of chronic kidney disease and inflammation. Despite 2 units of blood hemoglobin remains around 8. Hemoglobin 8.8 today, no transfusion necessary. B12 and folate are WNL, ferritin is greater than 500 with a normal saturation and slightly low iron, patient has been initiated on an oral iron supplementa tion. Current Visit: Yes Status: Acute Priority: High Code(s): D64.9 - ANEMIA, UNSPECIFIED SNOMED Code(s): 744598173 (2) Chronic kidney disease Narrative/Plan: Patient renal function is improving with treatment through Nephrology. Current Visit: Yes Status: Chronic Priority: Medium Code(s): N18.9 - CHRONIC KIDNEY DISEASE, UNSPECIFIED SNOMED Code(s): 910451566 (3) Thrombocytosis Narrative/Plan: Jak2 mutation was negative, platelet count is slowly coming down. No acute intervention needed Current Visit: Yes Status: Acute Priority: High Code(s): D47.3 - ESSENTIAL (HEMORRHAGIC) THROMBOCYTHEMIA SNOMED Code(s): 7255413 (4) IgG lambda monoclonal gammopathy Narrative/Plan: Significantly elevated [place]/Lambda light chains with a normal ratio. Dr. Munguia did review the patient's case and there is identification of an IgG lambda paraprotein with an M spike of 1.07 g/dL. This is a rather small M spike, many times with lack of other symptoms or sequela this may be a situation for monitoring. Bone survey ordered to evaluate for myeloma lesions. We will plan for a follow-up regarding paraproteinemia Current Visit: Yes Status: Acute Code(s): D47.2 - MONOCLONAL GAMMOPATHY SNOMED Code(s): 52992198
[2018-12-30 17:02] LABS: Glucose,Whole Blood 162 mg/dL (75-99)
--- NOTE | 2018-12-30 19:13 | XR ---
EXAMINATION TYPE: XR bone survey complete DATE OF EXAM: 12/30/2018 COMPARISON: NONE HISTORY: IgG lambda myeloma. TECHNIQUE: Complete bone survey. Bony calvarium : 2 views of the bony calvarium demonstrate left frontal parietal craniectomy. No dist inct focal suspicious lytic lesion present. Spine: Two views of the cervical, thoracic and lumbar spines are submitted. Cervical spine show st raightening with moderate narrowing and spurring C3-C4 and C5-C6 levels. No distinct lytic lesion pre sent . Thoracic spine shows straightening and demineralization without definitive focal suspicious ly tic lesion. There are 5 lumbar type vertebra with moderate multilevel disc space narrowing and multil evel facet arthropathy. IVC filter overlies right L3-L4 level. No definitive lytic lesions. Chest x-ray: Possible tiny right greater than left pleural effusions and associated bibasilar maxime sive atelectasis. Demineralization is present. No definitive lytic or expansile rib lesions bilateral ly. PELVIS: Single view of the pelvis demonstrates demineralization. Moderate narrowing right hip joint. No definitive lytic lesion. Lucency from overlying bowel gas. UPPER EXTREMITIES: Two views of the upper extremities show demineralization with surgical change left elbow. No definitive lytic lesions. LOWER EXTREMITIES: 2 views of the lower extremities show metallic hardware from longstem left hip edgar sheba with cerclage wires through healed fracture proximal to mid shaft level. No definitive suspiciou s lytic lesion in the right femur. IMPRESSION: Demineralization is seen which is noted to lower radiographic sensitivity. No definitive focal lytic osseous lesions identified.
[2018-12-30 20:42] LABS: Glucose,Whole Blood 218 mg/dL (75-99)
--- NOTE | 2018-12-30 21:14 | PN ---
PROGRESS NOTE The patient is seen for followup for acute kidney injury. He is currently lying in bed. His renal function has improved. Creatinine is down to 2.5 from 2.8 mg/dL yesterday. It had peaked at 3.2 mg/dL. The patient is maintained on prednisone. His UA did show evidence of eosinophils. Currently, the patient has a an indwelling [place] catheter with good urine output. PHYSICAL EXAMINATION: Blood pressure this morning was 171/70, heart rate of about 60 per minute. He is afebrile. Examination of the heart S1, S2. Examination of the lungs bilateral breath sounds are heard. Decreased breath sounds at bases. Abdomen is soft, nontender. Examination of lower extremities shows no significant edema. LAB: Show sodium 134, potassium 3.8, BUN 97, serum creatinine 2.5 mg/dL. ASSESSMENT: 1. Acute kidney injury. Possible acute interstitial nephritis, maintained on p.o. prednisone with improving renal function, there may be a component of acute tubular necrosis as well. 2. Volume overload, congestive heart failure, currently improved. 3. Diastolic heart failure. 4. Proteinuria with urine protein creatinine ratio about 2.48 with negative serologies. Serum protein electrophoresis was positive for IgG lambda. Patient is being followed by Oncology. PLAN: Continue with the prednisone. I will decrease the dose in a.m. His BUN is increasing secondary to the steroids. Repeat labs in a.m. Patient can most likely be discharged in the next 1 or 2 days. MMODL / IJN: [id number] /
[2018-12-31 06:25] LABS: Calcium 8.5 mg/dL (8.4-10.2); Potassium 3.6 mmol/L (3.5-5.1)
[2018-12-31 07:02] LABS: Glucose,Whole Blood 120 mg/dL (75-99)
[2018-12-31] MEDS: MAGNESIUM OXIDE 400 MG TAB PO SCH (08:10)
[2018-12-31] MEDS: FAMOTIDINE 20 MG TAB PO SCH (08:10)
[2018-12-31] MEDS: FERROUS SULFATE 325 MG TAB PO SCH ×2 (08:10→16:18)
[2018-12-31] MEDS: FUROSEMIDE 40 MG TAB PO SCH ×2 (08:10→16:18)
[2018-12-31] MEDS: DIVALPROEX ER 500 MG TAB.ER.24H PO SCH ×2 (08:10→20:52)
[2018-12-31] MEDS: predniSONE 20 MG TAB PO SCH (08:10)
[2018-12-31 12:11] LABS: Glucose,Whole Blood 212 mg/dL (75-99)
[2018-12-31] MEDS ORDERED: HYDROcodone/APAP 5-325MG 1 EACH TAB PO PRN (12:30)
--- NOTE | 2018-12-31 13:02 | P.PN ---
Subjective This is a pleasant 68 years old male with past medical history of congestive heart failure, atrial fibrillation, hypertension, hyperlipidemia, syncope, hypothyroidism, dysphagia. Patient is never been in this hospital before and there is no records or previous labs for him. He was sent from his [facility] for generalized weakness. Patient himself said he is poor historian, his fully awake and oriented but he has memory difficulty which could be part of his dementia or metabolic encephalopathy. Patient denies chest pain however he reports some breathing difficulty although he does not use his accessory muscles. He denies abdominal pain or tenderness. No nausea vomiting. He had regular bowel movements. He denies urinary complaints and he cannot remember if he has kidney disease. He has difficulty moving his right upper extremity and his right shoulder looks painful and swollen. Patient states that he was in ECF for 3 weeks, he could not remember why he was in the hospital before that but he states that he had stroke with right-sided weakness In the emergency room patient was found to have creatinine of 3.0 with no previous records to compare. Potassium 7.0, Came down with therapy to 6.7. Hemoglobin of 7 In the emergency room he got insulin 10 units with D50 and insulin 10 U x I, sodium bicarb and calcium gluconate 1 g, also patient got 1 unit of blood transfusion as emergency however when he was awake he gave permission to give a blood transfusion. Risks benefits and alternatives are explained to the patient and he agrees. Vitals shows mild bradycardia in mid 50s. Rest of vitals are stable. Patient has leukocytosis of 14.4, hemoglobin of 7.0, platelets 707. Potassium elevated 7 and 6.7. Sugar is controlled, proBNP is elevated at 23,000, liver enzymes not elevated. Troponin is negative. EKG showing normal sinus rhythm at [address]-T abnormalities. QTC 375. Chest x-ray showing bilateral pleural effusions and interstitial pulmonary edema. UA is suspicious for infection. Urine culture is ordered 12/25/2018 Patient remains in the ICU as overflow bed. He is feels a little better. Denied chest pain however he has some dyspnea. His still has right arm swelling and right shoulder swelling. Bilateral leg swelling. Vitals stable but he is bradycardic. He is saturating 95 on room air. He still has Roberts catheter with hematuria. His WBC today is 12.1. Hemoglobin 8.5. INR 1.2. Creatinine 3.0 and potassium 5.7. Patient has Doppler of the lower extremity showing left DVT. I discussed the case with vascular surgery yesterday and Dr. Matute. Patient could not tolerate heparin and was stopped. Patient received blood transfusion and his hemoglobin and vitals are stable this morning. Patient is a started on iron pills. Her consult is our following the case 12/26/18 pt feels little better today he was sitting in bed fully awake and oriented to the surrounding, he did not have specific complaint. pt still has roberts cath in place and his hematuria is clearing up , his urine today was almost yellow in color. vascular and pulmonary/critical care input is appreciated. pt might need IVC filter . 12/27/2018 Patient sitting in bed with no chest pain or dyspnea. He thinks he is improving. He is a stable hemodynamically. He denies any pain. Roberts catheter is in place. His urine is pink today again after it was clearing up yesterday. Some of call urology consult. Patient is being followed by pulmonary/critical care team and vascular surgery team for he has DVT. Patient has been evaluated by IVC filter. There is contraindication to heparin now, as heparin was started first day he came in and his hemoglobin dropped in one hour from 8.2 down to 7, and he developed worsening hematuria at that time and we have to give him another unit of blood transfusion at that time, his hemoglobin currently is a stable at this 0.3, case was discussed with Dr. Matute. And his urine culture is negative, although is on antibiotic his leukocytosis is improving and his white cell count is normal today at 10.6K. Creatinine is 3.2. Sodium 136. Case has been followed also by hematology and nephrology and their Workup as ordered. Discussed with staff 12/28/2018 Patient remains in the ICU, generally weak, he is fully awake and oriented with no chest pain or dyspnea. He still have Roberts catheter which is clearing up from his hematuria, patient has been evaluated by urologist and recommended workup later on to be done and nothing urgent. Patient has vascular team evaluated the patient, he underwent procedure and found to have IVC filter already installed previously, no new filter needed. Orthopedic team evaluated the patient again and he had aspiration of from his right shoulder Serology test showing serum immunofixation is positive for IgG lambda. Urine eosinophils also positive at 3%. Boat Master started the patient on prednisone with recommendation for kidney biopsy later on Vitals are stable. Hemoglobin stable around 8.1, and review of his anemia of chronic disease plus losing some of blood through the urine contributing to some anemia of acute blood loss. Creatinine stable at 2.9 and nephrology team are following. 12/29/2018 Patient improving today, is more awake and cold than before. He has no pain. Breathing is quiet. His hematuria is clearing up. He is hemodynamically stable and he is saturating 93% on room air. looks improving with no leukocytosis, hemoglobin is stable. Creatinine little bit listed at 2.87. ESR is 127. Zyrtec shoulder looks less swollen and tender today. Patient possibly transferred out of the ICU to the general medical floor, cleared by critical care team 12/30/2018 Patient was transferred to the general medical floor, he feels better. He is fully awake and oriented. He is not in pain or distress. No dyspnea. Dominant or chest pain. Tolerating diet well. He has kidney disease with hematuria is clearing up through the Roberts catheter, however its mildly T colored. Creatinine today is trending down to 2.5. Patient remains on steroids per cardiology physician recommendation. Patient's with no fever or leukocytosis so stopped Antibiotics, doubt patient has UTI. Nephrology input is appreciated. 12/31/2018 Patient is looking more awake and alert every day. No chest pain or dyspnea. His complaining of from sacral low back pain. Most likely secondary to his pressure ulcer. Continue with pain management. Vitals are stable. And creatinine is coming down to 2.3. Patient remains on steroids CONSTITUTIONAL: No fever. HEENT: No recent visual problems or hearing problems. Denied any sore throat. CARDIOVASCULAR: no syncope. PULMONARY: no hemoptysis. GASTROINTESTINAL: No diarrhea, no nausea, no vomiting, no abdominal pain. Normoactive bowel sounds. NEUROLOGICAL: No headaches, no numbness. HEMATOLOGICAL: Denies any bleeding or petechiae. ENDOCRINE: Denies any polyuria or polydipsia. Medication: Tylenol, ceftriaxone, Depakote, ferrous sulfate, Lasix Objective - Vital Signs Vital signs: Vital Signs Temp 97.7 F 12/31/18 05:16 Pulse 73 12/31/18 05:16 Resp 20 12/31/18 05:16 BP 150/76 12/31/18 05:16 Pulse Ox 97 12/31/18 05:16 Intake & Output 12/30/18 12/31/18 12/31/18 18:59 06:59 18:59 Intake Total 350 200 Output Total 2100 Balance 350 -1900 Weight 82 kg Intake: Oral 350 200 Output: Urine 2100 Uretheral (Roberts) 1700 Other: Voiding Method Indwelling Catheter Indwelling Catheter Indwelling Catheter - Exam -GENERAL: The patient is alert and oriented x3, not in any acute distress. pale. Forgetful HEENT: Pupils are round and equally reacting to light. EOMI. No scleral icterus. No conjunctival pallor. Normocephalic, atraumatic. No pharyngeal erythema. No thyromegaly. CARDIOVASCULAR: S1 and S2 present. No murmurs, rubs, or gallops. -PULMONARY: Bilateral equal air entry. Bilateral crepitation and scattered wheezing.. ABDOMEN: Soft, nontender, nondistended, normoactive bowel sounds. No palpable organomegaly. MUSCULOSKELETAL: No joint swelling or deformity. -EXTREMITIES: No cyanosis, clubbing,. Bilateral leg edema. He has limitation movement of his right upper extremities, compared to the left side. However he feels generally weak Right shoulder is painful and swollen and warm NEUROLOGICAL: Gross neurological examination did not reveal any focal deficits. He has generalized weakness. His right upper extremity movement is limited by his shoulder problem. Both legs are weak but they look symmetrical. Cranial nerves are grossly intact. Sensation is intact. Meningeal signs are absent SKIN: No rashes. - Labs CBC & Chem 7: 12/30/18 09:44 12/31/18 05:53 Labs: Abnormal Lab Results - Last 24 Hours (Table) 12/30/18 12/30/18 12/31/18 Range/Units 17:00 20:32 05:53 Sodium 134 L (137-145) mmol/L BUN 91 H (9-20) mg/dL Creatinine 2.35 H (0.66-1.25) mg/dL Glucose 115 H (74-99) mg/dL POC Glucose (mg/dL) 162 H 218 H (75-99) mg/dL 12/31/18 12/31/18 Range/Units 06:58 12:06 Sodium (137-145) mmol/L BUN (9-20) mg/dL Creatinine (0.66-1.25) mg/dL Glucose (74-99) mg/dL POC Glucose (mg/dL) 120 H 212 H (75-99) mg/dL Assessment and Plan Assessment: Possible acute DVT, status post IVC filter Hematuria, improving Acute kidney injury, on chronic kidney disease serum immunofixation is positive for IgG lambda. Urine eosinophils also positive at 3%. Started on prednisone. We'll need kidney biopsy later Right shoulder swelling, rule out septic arthritis Hyperkalemia, resolved Elements of acute blood loss anemia and anemia of chronic disease. Hemoglobin stable interstitial edema with bilateral pleural effusion. Improvement Possible Urinary tract infection Bilateral leg swelling History of stroke with mild right hemiparesis as per patient Plan: This is a pleasant 68 years old male who presents with several problems includi ng hematuria and acute DVT. Patient admitted to the intensive care unit. Patient could not tolerate heparin drip once started first day he came in and he blacked through his Roberts catheter. At that time needed blood transfusion. Vascular surgery in case for evaluation for possible IVC filter. Patient already has an IVC filter. Patient already is been evaluated by cardiology physician, trust operations assistant has been consulted by emergency room team. Patient is currently on Lasix. Call orthopedic consult is appreciated , patient underwent aspiration of his right shoulder, has DVT of lower ext on Doppler but negative for clot in right upper extremity. Monitor potassium level and treated accordingly. . echocardiogram EF 55%. urine culture is negative for infection Labs and medication were reviewed.. Continue same treatment. Continue with symptomatic treatment. Resume home medication. Monitor lytes and vitals. DVT and GI prophylaxis. Further recommendations of the clinical course of the patient DVT prophylaxis: no heparin GI Prophylaxis: Pepcid Prognosis is guarded
--- NOTE | 2018-12-31 13:35 | P.PN ---
Subjective Progress Note Date: 12/31/18 Seen and examined for the follow-up of acute kidney injury. Feels better. Eating lunch. No nausea vomiting diarrhea. Still has Astorga catheter with pinkish urine. 1500 ML of net negative in the last 24 hours Objective - Vital Signs Vital signs: Vital Signs Temp 97.7 F 12/31/18 05:16 Pulse 73 12/31/18 05:16 Resp 20 12/31/18 05:16 BP 150/76 12/31/18 05:16 Pulse Ox 97 12/31/18 05:16 Intake & Output 12/30/18 12/31/18 12/31/18 18:59 06:59 18:59 Intake Total 350 200 Output Total 2100 Balance 350 -1900 Weight 82 kg Intake: Oral 350 200 Output: Urine 2100 Uretheral (Astorga) 1700 Other: Voiding Method Indwelling Catheter Indwelling Catheter Indwelling Catheter - Exam No acute distress S1-S2 heard Diminished breath sounds bases No Edema - Labs CBC & Chem 7: 12/30/18 09:44 12/31/18 05:53 Labs: Abnormal Lab Results - Last 24 Hours (Table) 12/30/18 12/30/18 12/31/18 Range/Units 17:00 20:32 05:53 Sodium 134 L (137-145) mmol/L BUN 91 H (9-20) mg/dL Creatinine 2.35 H (0.66-1.25) mg/dL Glucose 115 H (74-99) mg/dL POC Glucose (mg/dL) 162 H 218 H (75-99) mg/dL 12/31/18 12/31/18 Range/Units 06:58 12:06 Sodium (137-145) mmol/L BUN (9-20) mg/dL Creatinine (0.66-1.25) mg/dL Glucose (74-99) mg/dL POC Glucose (mg/dL) 120 H 212 H (75-99) mg/dL Assessment and Plan Assessment: #1 acute kidney injury secondary to type I cardiorenal syndrome. Creatinine improving. #2 hyperkalemia secondary to acute kidney injury and potassium supplements. Stable. #3 edema secondary to decompensated heart failure. Currently compensated #4 anemia secondary to hematuria status post PRBC. #5 metabolic acidosis secondary to acute kidney injury. #6 lower extremity DVT. 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 Workup as per oncology Plan: #1 continue with Lasix 40 mg by mouth twice a day. #2 renal function stable. #3 avoid nephrotoxic agents and hypotensive episodes.
[2018-12-31 17:12] LABS: Glucose,Whole Blood 200 mg/dL (75-99)
[2019-01-01 07:13] LABS: Glucose,Whole Blood 115 mg/dL (75-99)
[2019-01-01] MEDS: MAGNESIUM OXIDE 400 MG TAB PO SCH (07:49)
[2019-01-01] MEDS: DIVALPROEX ER 500 MG TAB.ER.24H PO SCH ×2 (07:49→20:25)
[2019-01-01] MEDS: FUROSEMIDE 40 MG TAB PO SCH ×2 (07:49→16:19)
[2019-01-01] MEDS: FAMOTIDINE 20 MG TAB PO SCH (07:50)
[2019-01-01] MEDS: HYDROcodone/APAP 5-325MG 1 EACH TAB PO PRN ×2 (07:50→20:27)
[2019-01-01] MEDS: FERROUS SULFATE 325 MG TAB PO SCH ×2 (07:50→16:19)
[2019-01-01] MEDS: predniSONE 20 MG TAB PO SCH (07:50)
[2019-01-01 08:32] LABS: Basophils % (A) 0 %; Eosinophils % (A) 0 %; HCT 27.9 % (39.0-53.0); HGB 9.1 gm/dL (13.0-17.5); Lymphocytes % (A) 17 %; MCH 29.6 pg (25.0-35.0); MCHC 32.7 g/dL (31.0-37.0); MCV 90.8 fL (80.0-100.0); Mean Platelet Volume 6.9; Monocytes # (A) 0.6 k/uL (0-1.0); Monocytes % (A) 5 %; Neutrophils # (A) 9.3 k/uL (1.3-7.7); Neutrophils % (A) 77 %; Platelet Count 462 k/uL (150-450); RBC 3.08 m/uL (4.30-5.90); RDW 15.7 % (11.5-15.5); WBC 12.2 k/uL (3.8-10.6)
[2019-01-01 08:42] LABS: Calcium 8.6 mg/dL (8.4-10.2); Potassium 3.4 mmol/L (3.5-5.1)
[2019-01-01] MEDS ORDERED: Potassium Replacement Protocol 1 EACH MISC MISCELLANE PRN (09:30)
[2019-01-01] MEDS: POTASSIUM CHLORIDE ER 20 MEQ TAB.ER PO SCH ×2 (09:52→11:13)
--- NOTE | 2019-01-01 10:30 | P.PN ---
Subjective Progress Note Date: 01/01/19 Seen and examined for the follow-up of acute kidney injury. No nausea vomiting diarrhea. Still has Astorga catheter with pinkish urine. 1650 ML of net negative in the last 24 hours Objective - Vital Signs Vital signs: Vital Signs Temp 97.7 F 01/01/19 05:10 Pulse 53 L 01/01/19 05:10 Resp 20 01/01/19 05:10 BP 174/81 01/01/19 05:10 Pulse Ox 97 01/01/19 05:10 Intake & Output 12/31/18 01/01/19 01/01/19 18:59 06:59 18:59 Intake Total 1750 800 Output Total 1600 2600 1300 Balance 150 -1800 -1300 Weight 83 kg Intake: Oral 1750 800 Output: Urine 1600 2600 1300 Uretheral (Astorga) 1300 1300 Other: Voiding Method Indwelling Catheter Indwelling Catheter Indwelling Catheter - Exam No acute distress S1-S2 heard Diminished breath sounds bases No Edema - Labs CBC & Chem 7: 01/01/19 08:01 01/01/19 08:01 Labs: Abnormal Lab Results - Last 24 Hours (Table) 12/31/18 12/31/18 01/01/19 Range/Units 12:06 16:57 07:09 WBC (3.8-10.6) k/uL RBC (4.30-5.90) m/uL Hgb (13.0-17.5) gm/dL Hct (39.0-53.0) % RDW (11.5-15.5) % Plt Count (150-450) k/uL Neutrophils # (1.3-7.7) k/uL Sodium (137-145) mmol/L Potassium (3.5-5.1) mmol/L BUN (9-20) mg/dL Creatinine (0.66-1.25) mg/dL POC Glucose (mg/dL) 212 H 200 H 115 H (75-99) mg/dL 01/01/19 01/01/19 Range/Units 08:01 08:01 WBC 12.2 H (3.8-10.6) k/uL RBC 3.08 L (4.30-5.90) m/uL Hgb 9.1 L (13.0-17.5) gm/dL Hct 27.9 L (39.0-53.0) % RDW 15.7 H (11.5-15.5) % Plt Count 462 H (150-450) k/uL Neutrophils # 9.3 H (1.3-7.7) k/uL Sodium 135 L (137-145) mmol/L Potassium 3.4 L (3.5-5.1) mmol/L BUN 95 H (9-20) mg/dL Creatinine 2.09 H (0.66-1.25) mg/dL POC Glucose (mg/dL) (75-99) mg/dL Assessment and Plan Assessment: #1 acute kidney injury secondary to type I cardiorenal syndrome and AIN. Creatinine improving. #2 hyperkalemia secondary to acute kidney injury and potassium supplements. Stable. #3 edema secondary to decompensated heart failure. Currently compensated #4 anemia secondary to hematuria status post PRBC. #5 metabolic acidosis secondary to acute kidney injury. #6 lower extremity DVT. 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 Workup as per oncology Plan: #1 continue with Lasix 40 mg by mouth twice a day. On steroids for concern for AIN #2 renal function stable. #3 avoid nephrotoxic agents and hypotensive episodes.
[2019-01-01 11:58] LABS: Glucose,Whole Blood 135 mg/dL (75-99)
--- NOTE | 2019-01-01 14:22 | P.PN ---
Subjective This is a pleasant 68 years old male with past medical history of congestive heart failure, atrial fibrillation, hypertension, hyperlipidemia, syncope, hypothyroidism, dysphagia. Patient is never been in this hospital before and there is no records or previous labs for him. He was sent from his [facility] for generalized weakness. Patient himself said he is poor historian, his fully awake and oriented but he has memory difficulty which could be part of his dementia or metabolic encephalopathy. Patient denies chest pain however he reports some breathing difficulty although he does not use his accessory muscles. He denies abdominal pain or tenderness. No nausea vomiting. He had regular bowel movements. He denies urinary complaints and he cannot remember if he has kidney disease. He has difficulty moving his right upper extremity and his right shoulder looks painful and swollen. Patient states that he was in ECF for 3 weeks, he could not remember why he was in the hospital before that but he states that he had stroke with right-sided weakness In the emergency room patient was found to have creatinine of 3.0 with no previous records to compare. Potassium 7.0, Came down with therapy to 6.7. Hemoglobin of 7 In the emergency room he got insulin 10 units with D50 and insulin 10 U x I, sodium bicarb and calcium gluconate 1 g, also patient got 1 unit of blood transfusion as emergency however when he was awake he gave permission to give a blood transfusion. Risks benefits and alternatives are explained to the patient and he agrees. Vitals shows mild bradycardia in mid 50s. Rest of vitals are stable. Patient has leukocytosis of 14.4, hemoglobin of 7.0, platelets 707. Potassium elevated 7 and 6.7. Sugar is controlled, proBNP is elevated at 23,000, liver enzymes not elevated. Troponin is negative. EKG showing normal sinus rhythm at [address]-T abnormalities. QTC 375. Chest x-ray showing bilateral pleural effusions and interstitial pulmonary edema. UA is suspicious for infection. Urine culture is ordered 12/25/2018 Patient remains in the ICU as overflow bed. He is feels a little better. Denied chest pain however he has some dyspnea. His still has right arm swelling and right shoulder swelling. Bilateral leg swelling. Vitals stable but he is bradycardic. He is saturating 95 on room air. He still has Roberts catheter with hematuria. His WBC today is 12.1. Hemoglobin 8.5. INR 1.2. Creatinine 3.0 and potassium 5.7. Patient has Doppler of the lower extremity showing left DVT. I discussed the case with vascular surgery yesterday and Dr. Matute. Patient could not tolerate heparin and was stopped. Patient received blood transfusion and his hemoglobin and vitals are stable this morning. Patient is a started on iron pills. Her consult is our following the case 12/26/18 pt feels little better today he was sitting in bed fully awake and oriented to the surrounding, he did not have specific complaint. pt still has roberts cath in place and his hematuria is clearing up , his urine today was almost yellow in color. vascular and pulmonary/critical care input is appreciated. pt might need IVC filter . 12/27/2018 Patient sitting in bed with no chest pain or dyspnea. He thinks he is improving. He is a stable hemodynamically. He denies any pain. Roberts catheter is in place. His urine is pink today again after it was clearing up yesterday. Some of call urology consult. Patient is being followed by pulmonary/critical care team and vascular surgery team for he has DVT. Patient has been evaluated by IVC filter. There is contraindication to heparin now, as heparin was started first day he came in and his hemoglobin dropped in one hour from 8.2 down to 7, and he developed worsening hematuria at that time and we have to give him another unit of blood transfusion at that time, his hemoglobin currently is a stable at this 0.3, case was discussed with Dr. Matute. And his urine culture is negative, although is on antibiotic his leukocytosis is improving and his white cell count is normal today at 10.6K. Creatinine is 3.2. Sodium 136. Case has been followed also by hematology and nephrology and their Workup as ordered. Discussed with staff 12/28/2018 Patient remains in the ICU, generally weak, he is fully awake and oriented with no chest pain or dyspnea. He still have Roberts catheter which is clearing up from his hematuria, patient has been evaluated by urologist and recommended workup later on to be done and nothing urgent. Patient has vascular team evaluated the patient, he underwent procedure and found to have IVC filter already installed previously, no new filter needed. Orthopedic team evaluated the patient again and he had aspiration of from his right shoulder Serology test showing serum immunofixation is positive for IgG lambda. Urine eosinophils also positive at 3%. Physical Medicine Physician started the patient on prednisone with recommendation for kidney biopsy later on Vitals are stable. Hemoglobin stable around 8.1, and review of his anemia of chronic disease plus losing some of blood through the urine contributing to some anemia of acute blood loss. Creatinine stable at 2.9 and nephrology team are following. 12/29/2018 Patient improving today, is more awake and cold than before. He has no pain. Breathing is quiet. His hematuria is clearing up. He is hemodynamically stable and he is saturating 93% on room air. looks improving with no leukocytosis, hemoglobin is stable. Creatinine little bit listed at 2.87. ESR is 127. Zyrtec shoulder looks less swollen and tender today. Patient possibly transferred out of the ICU to the general medical floor, cleared by critical care team 12/30/2018 Patient was transferred to the general medical floor, he feels better. He is fully awake and oriented. He is not in pain or distress. No dyspnea. Dominant or chest pain. Tolerating diet well. He has kidney disease with hematuria is clearing up through the Roberts catheter, however its mildly T colored. Creatinine today is trending down to 2.5. Patient remains on steroids per principal java developer recommendation. Patient's with no fever or leukocytosis so stopped Antibiotics, doubt patient has UTI. Nephrology input is appreciated. 12/31/2018 Patient is looking more awake and alert every day. No chest pain or dyspnea. His complaining of from sacral low back pain. Most likely secondary to his pressure ulcer. Continue with pain management. Vitals are stable. And creatinine is coming down to 2.3. Patient remains on steroids 01/01/2019 Patient came doing well. His back pain is almost gone today. He looks stable with no chest pain or dyspnea. He still complaining from pain in his joints. Nephrology follow-up is appreciated. and his creatinine keep coming down to 2.0. Sodium 135. Potassium 3.4. WBC 12 point okay. Hemoglobin 9.1. Patient is on steroids. CONSTITUTIONAL: No fever. HEENT: No recent visual problems or hearing problems. Denied any sore throat. CARDIOVASCULAR: no syncope. PULMONARY: no hemoptysis. GASTROINTESTINAL: No diarrhea, no nausea, no vomiting, no abdominal pain. Normoactive bowel sounds. NEUROLOGICAL: No headaches, no numbness. HEMATOLOGICAL: Denies any bleeding or petechiae. ENDOCRINE: Denies any polyuria or polydipsia. Medication: Tylenol, ceftriaxone, Depakote, ferrous sulfate, Lasix Objective - Vital Signs Vital signs: Vital Signs Temp 97.7 F 01/01/19 05:10 Pulse 53 L 01/01/19 05:10 Resp 20 01/01/19 05:10 BP 174/81 01/01/19 05:10 Pulse Ox 97 01/01/19 05:10 Intake & Output 12/31/18 01/01/19 01/01/19 18:59 06:59 18:59 Intake Total 1750 800 Output Total 1600 2600 1300 Balance 150 -1800 -1300 Weight 83 kg Intake: Oral 1750 800 Output: Urine 1600 2600 1300 Uretheral (Roberts) 1300 1300 Other: Voiding Method Indwelling Catheter Indwelling Catheter Indwelling Catheter - Exam -GENERAL: The patient is alert and oriented x3, not in any acute distress. pale. Forgetful HEENT: Pupils are round and equally reacting to light. EOMI. No scleral icterus. No conjunctival pallor. Normocephalic, atraumatic. No pharyngeal erythema. No thyromegaly. CARDIOVASCULAR: S1 and S2 present. No murmurs, rubs, or gallops. -PULMONARY: Bilateral equal air entry. Bilateral crepitation and scattered wheezing.. ABDOMEN: Soft, nontender, nondistended, normoactive bowel sounds. No palpable organomegaly. MUSCULOSKELETAL: No joint swelling or deformity. -EXTREMITIES: No cyanosis, clubbing,. Bilateral leg edema. He has limitation movement of his right upper extremities, compared to the left side. However he feels generally weak Right shoulder is painful and swollen and warm NEUROLOGICAL: Gross neurological examination did not reveal any focal deficits. He has generalized weakness. His right upper extremity movement is limited by his shoulder problem. Both legs are weak but they look symmetrical. Cranial nerves are grossly intact. Sensation is intact. Meningeal signs are absent SKIN: No rashes. - Labs CBC & Chem 7: 01/01/19 08:01 01/01/19 08:01 Labs: Abnormal Lab Results - Last 24 Hours (Table) 12/31/18 01/01/19 01/01/19 Range/Units 16:57 07:09 08:01 WBC (3.8-10.6) k/uL RBC (4.30-5.90) m/uL Hgb (13.0-17.5) gm/dL Hct (39.0-53.0) % RDW (11.5-15.5) % Plt Count (150-450) k/uL Neutrophils # (1.3-7.7) k/uL Sodium 135 L (137-145) mmol/L Potassium 3.4 L (3.5-5.1) mmol/L BUN 95 H (9-20) mg/dL Creatinine 2.09 H (0.66-1.25) mg/dL POC Glucose (mg/dL) 200 H 115 H (75-99) mg/dL 01/01/19 01/01/19 Range/Units 08:01 11:55 WBC 12.2 H (3.8-10.6) k/uL RBC 3.08 L (4.30-5.90) m/uL Hgb 9.1 L (13.0-17.5) gm/dL Hct 27.9 L (39.0-53.0) % RDW 15.7 H (11.5-15.5) % Plt Count 462 H (150-450) k/uL Neutrophils # 9.3 H (1.3-7.7) k/uL Sodium (137-145) mmol/L Potassium (3.5-5.1) mmol/L BUN (9-20) mg/dL Creatinine (0.66-1.25) mg/dL POC Glucose (mg/dL) 135 H (75-99) mg/dL Assessment and Plan Assessment: Possible acute DVT, status post IVC filter Hematuria, improving Acute kidney injury, on chronic kidney disease serum immunofixation is positive for IgG lambda. Urine eosinophils also positive at 3%. Started on prednisone. We'll need kidney biopsy later Right shoulder swelling, rule out septic arthritis Hyperkalemia, resolved Elements of acute blood loss anemia and anemia of chronic disease. Hemoglobin stable interstitial edema with bilateral pleural effusion. Improvement Possible Urinary tract infection Bilateral leg swelling History of stroke with mild right hemiparesis as per patient Plan: This is a pleasant 68 years old male who presents with several problems including hematuria and acute DVT. Patient admitted to the intensive care unit. Patient could not tolerate heparin drip once started first day he came in and he blacked through his Roberts catheter. At that time needed blood transfusion. Vascular surgery in case for evaluation for possible IVC filter. Patient already has an IVC filter. Patient already is been evaluated by principal java developer, motor carrier inspector has been consulted by emergency room team. Patient is currently on Lasix. Call orthopedic consult is appreciated , patient underwent aspiration of his right shoulder, has DVT of lower ext on Doppler but negative for clot in right upper extremity. Monitor potassium level and treated accordingly. . echocardiogram EF 55%. urine culture is negative for infection Labs and medication were reviewed.. Continue same treatment. Continue with symptomatic treatment. Resume home medication. Monitor lytes and vitals. DVT and GI prophylaxis. Further recommendations of the clinical course of the patient DVT prophylaxis: no heparin GI Prophylaxis: Pepcid Prognosis is guarded
[2019-01-01 17:12] LABS: Glucose,Whole Blood 182 mg/dL (75-99)
[2019-01-01 20:22] LABS: Glucose,Whole Blood 194 mg/dL (75-99)
[2019-01-02 07:17] LABS: Glucose,Whole Blood 124 mg/dL (75-99)
[2019-01-02] MEDS: predniSONE 20 MG TAB PO SCH (07:24)
[2019-01-02] MEDS: DIVALPROEX ER 500 MG TAB.ER.24H PO SCH ×2 (07:24→21:19)
[2019-01-02] MEDS: MAGNESIUM OXIDE 400 MG TAB PO SCH (07:24)
[2019-01-02] MEDS: FERROUS SULFATE 325 MG TAB PO SCH ×2 (07:24→17:10)
[2019-01-02] MEDS: FUROSEMIDE 40 MG TAB PO SCH ×2 (07:25→15:48)
[2019-01-02] MEDS: FAMOTIDINE 20 MG TAB PO SCH (07:25)
[2019-01-02] MEDS: HYDROcodone/APAP 5-325MG 1 EACH TAB PO PRN (08:28)
[2019-01-02 10:45] LABS: Calcium 8.2 mg/dL (8.4-10.2); Potassium 3.5 mmol/L (3.5-5.1)
[2019-01-02 12:10] LABS: Glucose,Whole Blood 239 mg/dL (75-99)
[2019-01-02 16:34] LABS: Glucose,Whole Blood 230 mg/dL (75-99)
--- NOTE | 2019-01-02 17:41 | PN ---
PROGRESS NOTE Patient is seen for followup for acute kidney injury. He is currently maintained on p.o. steroids, as there is suspicion of acute interstitial nephritis. Patient's renal function has improved. He currently has an indwelling Astorga catheter which was placed on this admission. We will try and remove it. Patient is being considered for discharge to [facility]. On examination this morning, he is comfortable, awake, not in any acute distress. VITAL SIGNS: Blood pressure was 175/84, heart rate 50 per minute. He is afebrile. EXAMINATION OF THE HEART: S1 and S2. EXAMINATION OF LUNGS: Bilateral breath sounds are heard. ABDOMEN: Soft, non-tender. Examination of lower extremities shows no significant edema. Right arm is in a sling. Labs show sodium 134, potassium 3.5, BUN 92, serum creatinine 1.7. ASSESSMENT: 1. Acute kidney injury, acute tubular necrosis versus acute interstitial nephritis, currently improving with steroids. I will decrease the prednisone to 40 mg daily, which patient will continue for about a week post discharge. 2. Hyperkalemia on initial admission, currently resolved. 3. Metabolic acidosis secondary to renal failure, now resolved. 4. Lower extremity deep venous thrombosis. 5. Volume overload, currently improved. PLAN: Decrease prednisone to 40 mg daily. Continue for about one week post discharge. Follow up in the office in about one week's time. Discontinue Astorga catheter. If patient fails voiding trial, then we can reinsert the Astorga catheter. Patient will be going to an extended-care facility and the catheter could be removed there as well. MMODL / IJN: [id number] /
[2019-01-02 20:41] LABS: Glucose,Whole Blood 205 mg/dL (75-99)
[2019-01-02 20:51] VITALS: PULSE 50
--- NOTE | 2019-01-02 20:56 | P.PN ---
Subjective This is a pleasant 68 years old male with past medical history of congestive heart failure, atrial fibrillation, hypertension, hyperlipidemia, syncope, hypothyroidism, dysphagia. Patient is never been in this hospital before and there is no records or previous labs for him. He was sent from his ECF for generalized weakness. Patient himself said he is poor historian, his fully awake and oriented but he has memory difficulty which could be part of his dementia or metabolic encephalopathy. Patient denies chest pain however he reports some breathing difficulty although he does not use his accessory muscles. He denies abdominal pain or tenderness. No nausea vomiting. He had regular bowel movements. He denies urinary complaints and he cannot remember if he has kidney disease. He has difficulty moving his right upper extremity and his right shoulder looks painful and swollen. Patient states that he was in ECF for 3 weeks, he could not remember why he was in the hospital before that but he states that he had stroke with right-sided weakness In the emergency room patient was found to have creatinine of 3.0 with no previous records to compare. Potassium 7.0, Came down with therapy to 6.7. Hemoglobin of 7 In the emergency room he got insulin 10 units with D50 and insulin 10 U x I, sodium bicarb and calcium gluconate 1 g, also patient got 1 unit of blood transfusion as emergency however when he was awake he gave permission to give a blood transfusion. Risks benefits and alternatives are explained to the patient and he agrees. Vitals shows mild bradycardia in mid 50s. Rest of vitals are stable. Patient has leukocytosis of 14.4, hemoglobin of 7.0, platelets 707. Potassium elevated 7 and 6.7. Sugar is controlled, proBNP is elevated at 23,000, liver enzymes not elevated. Troponin is negative. EKG showing normal sinus rhythm at [address]-T abnormalities. QTC 375. Chest x-ray showing bilateral pleural effusions and interstitial pulmonary edema. UA is suspicious for infection. Urine culture is ordered 12/25/2018 Patient remains in the ICU as overflow bed. He is feels a little better. Denied chest pain however he has some dyspnea. His still has right arm swelling and right shoulder swelling. Bilateral leg swelling. Vitals stable but he is bradycardic. He is saturating 95 on room air. He still has Roberts catheter with hematuria. His WBC today is 12.1. Hemoglobin 8.5. INR 1.2. Creatinine 3.0 and potassium 5.7. Patient has Doppler of the lower extremity showing left DVT. I discussed the case with vascular surgery yesterday and Dr. Matute. Patient could not tolerate heparin and was stopped. Patient received blood transfusion and his hemoglobin and vitals are stable this morning. Patient is a started on iron pills. Her consult is our following the case 12/26/18 pt feels little better today he was sitting in bed fully awake and oriented to the surrounding, he did not have specific complaint. pt still has roberts cath in place and his hematuria is clearing up , his urine today was almost yellow in color. vascular and pulmonary/critical care input is appreciated. pt might need IVC filter . 12/27/2018 Patient sitting in bed with no chest pain or dyspnea. He thinks he is improving. He is a stable hemodynamically. He denies any pain. Roberts catheter is in place. His urine is pink today again after it was clearing up yesterday. Some of call urology consult. Patient is being followed by pulmonary/critical care team and vascular surgery team for he has DVT. Patient has been evaluated by IVC filter. There is contraindication to heparin now, as heparin was started first day he came in and his hemoglobin dropped in one hour from 8.2 down to 7, and he developed worsening hematuria at that time and we have to give him another unit of blood transfusion at that time, his hemoglobin currently is a stable at this 0.3, case was discussed with Dr. Matute. And his urine culture is negative, although is on antibiotic his leukocytosis is improving and his white cell count is normal today at 10.6K. Creatinine is 3.2. Sodium 136. Case has been followed also by hematology and nephrology and their Workup as ordered. Discussed with staff 12/28/2018 Patient remains in the ICU, generally weak, he is fully awake and oriented with no chest pain or dyspnea. He still have Roberts catheter which is clearing up from his hematuria, patient has been evaluated by urologist and recommended workup later on to be done and nothing urgent. Patient has vascular team evaluated the patient, he underwent procedure and found to have IVC filter already installed previously, no new filter needed. Orthopedic team evaluated the patient again and he had aspiration of from his right shoulder Serology test showing serum immunofixation is positive for IgG lambda. Urine eosinophils also positive at 3%. Director Of Math started the patient on prednisone with recommendation for kidney biopsy later on Vitals are stable. Hemoglobin stable around 8.1, and review of his anemia of chronic disease plus losing some of blood through the urine contributing to some anemia of acute blood loss. Creatinine stable at 2.9 and nephrology team are following. 12/29/2018 Patient improving today, is more awake and cold than before. He has no pain. Breathing is quiet. His hematuria is clearing up. He is hemodynamically stable and he is saturating 93% on room air. looks improving with no leukocytosis, hemoglobin is stable. Creatinine little bit listed at 2.87. ESR is 127. Zyrtec shoulder looks less swollen and tender today. Patient possibly transferred out of the ICU to the general medical floor, cleared by critical care team 12/30/2018 Patient was transferred to the general medical floor, he feels better. He is fully awake and oriented. He is not in pain or distress. No dyspnea. Dominant or chest pain. Tolerating diet well. He has kidney disease with hematuria is clearing up through the Roberts catheter, however its mildly T colored. Creatinine today is trending down to 2.5. Patient remains on steroids per wastewater treatment plant instructor recommendation. Patient's with no fever or leukocytosis so stopped Antibiotics, doubt patient has UTI. Nephrology input is appreciated. 12/31/2018 Patient is looking more awake and alert every day. No chest pain or dyspnea. His complaining of from sacral low back pain. Most likely secondary to his pressure ulcer. Continue with pain management. Vitals are stable. And creatinine is coming down to 2.3. Patient remains on steroids 01/01/2019 Patient came doing well. His back pain is almost gone today. He looks stable with no chest pain or dyspnea. He still complaining from pain in his joints. Nephrology follow-up is appreciated. and his creatinine keep coming down to 2.0. Sodium 135. Potassium 3.4. WBC 12 point okay. Hemoglobin 9.1. Patient is on steroids. 01/02/19 pt today is sitting in chair for the first time , his back pain and right shoulder pain are improving, his roberts catheter was removed today . pt is able to urinate after that , we still going to need to recheck his bladder scan. his creatinine today is 1.7, nephrology team are lowering his steroid dose but he will need to continue with 40 mg daily for about week and then follow with nephrology team after that CONSTITUTIONAL: No fever. HEENT: No recent visual problems or hearing problems. Denied any sore throat. CARDIOVASCULAR: no syncope. PULMONARY: no hemoptysis. GASTROINTESTINAL: No diarrhea, no nausea, no vomiting, no abdominal pain. Normoactive bowel sounds. NEUROLOGICAL: No headaches, no numbness. HEMATOLOGICAL: Denies any bleeding or petechiae. ENDOCRINE: Denies any polyuria or polydipsia. Medication: Tylenol, ceftriaxone, Depakote, ferrous sulfate, Lasix Objective - Vital Signs Vital signs: Vital Signs Temp 98.1 F 01/02/19 20:51 Pulse 50 L 01/02/19 20:51 Resp 16 01/02/19 20:51 BP 166/83 01/02/19 20:51 Pulse Ox 94 L 01/02/19 20:51 Intake & Output 01/02/19 01/02/19 01/03/19 06:59 18:59 06:59 Output Total 1000 1100 Balance -1000 -1100 Weight 81 kg Output: Urine 1000 1100 Uretheral (Roberts) 500 1100 Other: Voiding Method Indwelling Catheter Incontinent # Voids 1 2 # Bowel Movements 1 0 - Exam -GENERAL: The patient is alert and oriented x3, not in any acute distress. pale. Forgetful HEENT: Pupils are round and equally reacting to light. EOMI. No scleral icterus. No conjunctival pallor. Normocephalic, atraumatic. No pharyngeal erythema. No thyromegaly. CARDIOVASCULAR: S1 and S2 present. No murmurs, rubs, or gallops. -PULMONARY: Bilateral equal air entry. Bilateral crepitation and scattered wheezing.. ABDOMEN: Soft, nontender, nondistended, normoactive bowel sounds. No palpable organomegaly. MUSCULOSKELETAL: No joint swelling or deformity. -EXTREMITIES: No cyanosis, clubbing,. Bilateral leg edema. He has limitation movement of his right upper extremities, compared to the left side. However he feels generally weak Right shoulder is painful and swollen and warm NEUROLOGICAL: Gross neurological examination did not reveal any focal deficits. He has generalized weakness. His right upper extremity movement is limited by his shoulder problem. Both legs are weak but they look symmetrical. Cranial nerves are grossly intact. Sensation is intact. Meningeal signs are absent SKIN: No rashes. - Labs CBC & Chem 7: 01/01/19 08:01 01/02/19 09:57 Labs: Abnormal Lab Results - Last 24 Hours (Table) 01/02/19 01/02/19 01/02/19 Range/Units 07:15 09:57 12:08 Sodium 134 L (137-145) mmol/L BUN 92 H (9-20) mg/dL Creatinine 1.70 H (0.66-1.25) mg/dL Glucose 193 H (74-99) mg/dL POC Glucose (mg/dL) 124 H 239 H (75-99) mg/dL Calcium 8.2 L (8.4-10.2) mg/dL 01/02/19 01/02/19 Range/Units 16:32 20:38 Sodium (137-145) mmol/L BUN (9-20) mg/dL Creatinine (0.66-1.25) mg/dL Glucose (74-99) mg/dL POC Glucose (mg/dL) 230 H 205 H (75-99) mg/dL Calcium (8.4-10.2) mg/dL Assessment and Plan Assessment: Possible acute DVT, status post IVC filter Hematuria, improving Acute kidney injury, on chronic kidney disease serum immunofixation is positive for IgG lambda. Urine eosinophils also positive at 3%. Started on prednisone. We'll need kidney biopsy later Right shoulder swelling, rule out septic arthritis Hyperkalemia, resolved Elements of acute blood loss anemia and anemia of chronic disease. Hemoglobin stable interstitial edema with bilateral pleural effusion. Improvement Possible Urinary tract infection Bilateral leg swelling History of stroke with mild right hemiparesis as per patient Plan: This is a pleasant 68 years old male who presents with several problems including hematuria and acute DVT. Patient admitted to the intensive care unit. Patient could not tolerate heparin drip once started first day he came in and he blacked through his Roberts catheter. At that time needed blood transfusion. Vascular surgery in case for evaluation for possible IVC filter. Patient already has an IVC filter. Patient already is been evaluated by wastewater treatment plant instructor, h ematologist has been consulted by emergency room team. Patient is currently on Lasix. Call orthopedic consult is appreciated , patient underwent aspiration of his right shoulder, has DVT of lower ext on Doppler but negative for clot in right upper extremity. Monitor potassium level and treated accordingly. . echocardiogram EF 55%. urine culture is negative for infection Labs and medication were reviewed.. Continue same treatment. Continue with symptomatic treatment. Resume home medication. Monitor lytes and vitals. DVT and GI prophylaxis. Further recommendations of the clinical course of the patient DVT prophylaxis: no heparin GI Prophylaxis: Pepcid Prognosis is guarded
[2019-01-03 04:46] VITALS: BP 172/88; RESP 17; TEMP 98.3
[2019-01-03] MEDS: DIVALPROEX ER 500 MG TAB.ER.24H PO SCH (07:08)
[2019-01-03] MEDS: MAGNESIUM OXIDE 400 MG TAB PO SCH (07:08)
[2019-01-03] MEDS: FERROUS SULFATE 325 MG TAB PO SCH ×2 (07:08→17:11)
[2019-01-03] MEDS: FUROSEMIDE 40 MG TAB PO SCH ×2 (07:08→17:11)
[2019-01-03] MEDS: FAMOTIDINE 20 MG TAB PO SCH (07:08)
[2019-01-03 07:19] LABS: Glucose,Whole Blood 138 mg/dL (75-99)
[2019-01-03] MEDS ORDERED: predniSONE 20 MG TAB PO SCH (09:00)
[2019-01-03 09:20] LABS: Calcium 8.6 mg/dL (8.4-10.2); Potassium 3.4 mmol/L (3.5-5.1)
[2019-01-03 11:57] LABS: Glucose,Whole Blood 166 mg/dL (75-99)
[2019-01-03] MEDS ORDERED: POTASSIUM CHLORIDE ER 20 MEQ TAB.ER PO STA (13:44)
--- NOTE | 2019-01-03 14:33 | P.DS ---
Providers Date of admission: 12/24/18 07:46 Attending physician: Hao Silva Consults: 12/24/18 07:50 Consult Physician Routine Consulting Provider: Thanh Munguia Consult Reason/Comments: anemia Do you want consulting provider notified?: Yes Consult Physician Urgent Consulting Provider: Robbi Novoa Consult Reason/Comments: acute kidney injury Do you want consulting provider notified?: Yes 12/24/18 13:48 Consult Physician Urgent Consulting Provider: Minal Rivers Consult Reason/Comments: possible CHF Do you want consulting provider notified?: Yes 12/24/18 14:03 Consult Physician Routine Consulting Provider: Brooks Rogel Consult Reason/Comments: Right Shoulder Do you want consulting provider notified?: Yes 12/24/18 16:33 Consult Physician Routine Consulting Provider: Zak Snider Consult Reason/Comments: Pulmonary Do you want consulting provider notified?: Yes Consult Physician Urgent Consulting Provider: Robert Keyes Consult Reason/Comments: Left Leg DVT/Possible filter Do you want consulting provider notified?: Yes 12/27/18 09:46 Consult Physician Urgent Consulting Provider: Gilson Marie Consult Reason/Comments: hematuria Do you want consulting provider notified?: Yes Primary care physician: Stated None Hospital Course: Diagnoses: Possible acute DVT, status post IVC filter Hematuria, improving Acute kidney injury, on chronic kidney disease serum immunofixation is positive for IgG lambda. Urine eosinophils also positive at 3%. Started on prednisone. Will need nephrology follow-up metabolic encephalopathy. Present on admission. 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 , evaluated by orthopedic team Right shoulder adhesive capsulitis, , evaluated by orthopedic team Hyperkalemia, resolved Elements of acute blood loss anemia and anemia of chronic disease. Hemoglobin stable interstitial edema with bilateral pleural effusion. Improvement Possible Urinary tract infection Bilateral leg swelling History of stroke with mild right hemiparesis present on admission Pressure ulcer, present on admission Hospital course: This is a pleasant 68 years old male with past medical history of congestive heart failure, atrial fibrillation, hypertension, hyperlipidemia, syncope, hypothyroidism, dysphagia. He was sent from his ECF for generalized weakness. On presentation patient was confused with metabolic encephalopathy. He was treated in the ICU first and when more stabilized moved to the general medical floor. He had acute kidney failure with creatinine was around 3.0. Log Sorting Supervisor evaluated the patient and found him to be with acute tubular necrosis versus acute interstitial nephritis. His bunny immunofixation is positive for IgG lambda. Urine eosinophils also positive at 3%. Started on prednisone. And patient showed interval improvement and his creatinine started improving, on the day of discharge was 1.59. Log Sorting Supervisor cleared the patient for discharge and recommended outpatient follow-up in one week when they going to review his medication including the steroids. Currently patient will be discharged on 40 mg daily for cloth packer recommendation. His [place] catheter was removed and patient is able to urinate, his postvoid residual: 0-15 mL Patient mental status improved to baseline. Patient had right femoral DVT. However he is not a candidate for anticoagulation as he developed hematuria when we started him on heparin drip. And anticoagulation was held as patient is high-risk for bleeding. His hemoglobin dropped after the heparin and he needed blood transfusion. Patient already has IVC filter. Patient also evaluated by computer systems consultant for his anemia and paraproteinemia, Patient may require bone marrow biopsy and aspirate, this can be planned for outpatient. Patient has been evaluated by many consultants who cleared him for discharge, including cloth packer and computer systems consultant. Patient is back to his baseline with no symptomatic complaints. No chest pain or dyspnea. No abdominal pain. No nausea vomiting. No change in urine or bowel habits. No fever. Patient feels he can go to his ECF. Problems and management plan was discussed with the patient and he verbalized understanding and acceptance Patient was found stable and can be discharged and guarded prognosis however he needs follow-up as an outpatient. Appointment was made with computer systems consultant Dr. Munguia and patient made aware of its and he agrees. Dr. Rodriguez office has been contacted and they stated they going to call the patient to make an appointment for him. Patient will be discharged on prednisone 40 mg daily for 1 week, after that Dr. Rodriguez, the cloth packer wanted to see the patient to decide whether to continue or taper off his prednisone, besides other work if needed. Patient was informed with all of the above and he verbalized understanding and acceptance. Gen: patient is a AAOx3, no distress. general weakness, improving CVS: S1-S2, RRR, no murmur Lungs: B/L CTA, no wheezing Abdomen: soft, no distention, no tenderness, positive bowel sounds Extremity: no leg edema or induration. Right shoulder pain with some limitation in movement. Sling is in a Place Time spent more than 35 minutes Patient Condition at Discharge: Poor Plan - Discharge Summary Discharge Rx Participant: No New Discharge Prescriptions: New Ferrous Sulfate [Iron (65 MG Elemental)] 325 mg PO BID-W/MEALS 30 Days #60 tab Furosemide [Lasix] 40 mg PO BID@0900,1600 #0 tab HYDROcodone/APAP 5-325MG [[place] 5-325] 1 each PO Q12HR PRN 3 Days #6 tab PRN Reason: MODERATE Pain Famotidine [Pepcid] 20 mg PO DAILY #30 tab predniSONE 40 mg PO DAILY 7 Days #14 tab Continue Acetaminophen Tab [Tylenol] 650 mg PO Q6H PRN PRN Reason: Pain Levothyroxine Sodium [Synthroid] 50 mcg PO DAILY Divalproex ER [Depakote ER] 500 mg PO BID Tamsulosin HCl [Flomax] 0.4 mg PO HS Folic Acid 1 mg PO HS Cyanocobalamin [Vitamin B-12] 500 mcg PO HS Atorvastatin [Lipitor] 10 mg PO HS@1999 Aspirin [[place] Aspirin EC] 81 mg PO HS ARIPiprazole [Abilify] 10 mg PO DAILY Ondansetron HCl [Zofran] 4 mg PO Q6H PRN PRN Reason: Nausea Changed Potassium Chloride ER [K-Dur 20] 10 meq PO DAILY 3 Days #3 Discontinued Furosemide [Lasix] 20 mg PO DAILY Discharge Medication List ARIPiprazole [Abilify] 10 mg PO DAILY 12/24/18 [History] Acetaminophen Tab [Tylenol] 650 mg PO Q6H PRN 12/24/18 [History] Aspirin [[place] Aspirin EC] 81 mg PO HS 12/24/18 [History] Atorvastatin [Lipitor] 10 mg PO HS@199912/24/18 [History] Cyanocobalamin [Vitamin B-12] 500 mcg PO HS 12/24/18 [History] Divalproex ER [Depakote ER] 500 mg PO BID 12/24/18 [History] Folic Acid 1 mg PO HS 12/24/18 [History] Levothyroxine Sodium [Synthroid] 50 mcg PO DAILY 12/24/18 [History] Ondansetron HCl [Zofran] 4 mg PO Q6H PRN 12/24/18 [History] Tamsulosin HCl [Flomax] 0.4 mg PO HS 12/24/18 [History] Famotidine [Pepcid] 20 mg PO DAILY #30 tab 01/03/19 [Rx] Ferrous Sulfate [Iron (65 MG Elemental)] 325 mg PO BID-W/MEALS 30 Days #60 tab 01/03/19 [Rx] Furosemide [Lasix] 40 mg PO BID@0900,1600 #0 tab 01/03/19 [Rx] HYDROcodone/APAP 5-325MG [[place] 5-325] 1 each PO Q12HR PRN 3 Days #6 tab 01/03/19 [Rx] Potassium Chloride ER [K-Dur 20] 10 meq PO DAILY 3 Days #3 01/03/19 [Rx] predniSONE 40 mg PO DAILY 7 Days #14 tab 01/03/19 [Rx] Follow up Appointment(s)/Referral(s): Thanh Munguia MD [STAFF PHYSICIAN] - 02/01/19 2:00 pm None,Stated [Primary Care Provider] - 1-2 days Robbi Novoa DO [STAFF PHYSICIAN] - 1 Week (Office will call to set appointment time) Activity/Diet/Wound Care/Special Instructions: renal and cardiac diet activity is limited till you see your doctor Predinsone 40 mg daily: continue for 7 days and then follow up with the cloth packer for further recommendation if to stop or continue the medication ... try not to stop the steroid (prednisone ) abruptly but taper under physician supervision
== END 2019-01-03 18:03 | DRG 682 ==
LOC: EC 04:15 → 2SICU 07:46 → 4MS4W 12-29 14:12
PROVIDERS: ADMIT Hospitalist; ATTEND Hospitalist
PROC: B5191ZZ Fluoroscopy of Inferior Vena Cava using Low Osmolar Contrast (ICD-10-PCS; 2018-12-27 13:35)
PROC: 0R9J3ZZ Drainage of Right Shoulder Joint, Percutaneous Approach (ICD-10-PCS; principal; 2018-12-28)
DX: N17.0 Acute kidney failure with tubular necrosis (principal); G93.41 Metabolic encephalopathy; I50.31 Acute diastolic (congestive) heart failure; D62 Acute posthemorrhagic anemia; E87.2 Acidosis; I13.0 Hypertensive heart and chronic kidney disease with heart failure and stage 1 through stage 4 chronic kidney disease, or unspecified chronic kidney disease; I69.351 Hemiplegia and hemiparesis following cerebral infarction affecting right dominant side; I82.412 Acute embolism and thrombosis of left femoral vein; N12 Tubulo-interstitial nephritis, not specified as acute or chronic; N18.9 Chronic kidney disease, unspecified; R62.7 Adult failure to thrive; D47.2 Monoclonal gammopathy; D47.3 Essential (hemorrhagic) thrombocythemia; D63.1 Anemia in chronic kidney disease; E03.9 Hypothyroidism, unspecified; E11.22 Type 2 diabetes mellitus with diabetic chronic kidney disease; E78.5 Hyperlipidemia, unspecified; E83.42 Hypomagnesemia; T50.2X5A Adverse effect of carbonic-anhydrase inhibitors, benzothiadiazides and other diuretics, initial encounter; E87.5 Hyperkalemia; F03.90 Unspecified dementia, unspecified severity, without behavioral disturbance, psychotic disturbance, mood disturbance, and anxiety; F32.9 Major depressive disorder, single episode, unspecified; I48.91 Unspecified atrial fibrillation; L89.90 Pressure ulcer of unspecified site, unspecified stage; M19.011 Primary osteoarthritis, right shoulder; M75.01 Adhesive capsulitis of right shoulder; M85.80 Other specified disorders of bone density and structure, unspecified site; R31.0 Gross hematuria; Z79.4 Long term (current) use of insulin; Z79.52 Long term (current) use of systemic steroids; Z79.82 Long term (current) use of aspirin; Z79.890 Hormone replacement therapy; Z79.899 Other long term (current) drug therapy; Z86.718 Personal history of other venous thrombosis and embolism; Z87.440 Personal history of urinary (tract) infections; Z87.891 Personal history of nicotine dependence; Z95.828 Presence of other vascular implants and grafts; R13.10 Dysphagia, unspecified
CPT/HCPCS: 36010; 36415; 71045; 71046; 75825; 76770; 76937; 77075; 80048; 80053; 80074; 81001; 81270; 82272; 82570; 82607; 82668; 82728; 82746; 83010; 83516; 83540; 83550; 83735; 83880; 83883; 84100; 84132; 84156; 84165; 84443; 84484; 84550; 85025; 85027; 85045; 85610; 85652; 85730; 86038; 86140; 86160; 86225; 86255; 86334; 86850; 86900; 86901; 86920; 87086; 87205; 87390; 93005; 93306; 93970; 94760; 96365; 96366; 96375; 99285

== ENCOUNTER 2023-01-13 14:23 | Inpatient (IN) | payer MEDICARE ==
--- NOTE | 2023-01-13 15:42 | ED ---
Weakness HPI - General Chief complaint: Weakness Stated complaint: weakness Time Seen by Provider: 01/13/23 15:04 Source: patient, old records reviewed Mode of arrival: EMS Limitations: altered mental status - History of Present Illness Initial comments: This patient is 72-year-old man sent here to have evaluation of weakness. The patient resides at the [facility]. There is accompanying paperwork that shows patient with increasing creatinine and BUN versus baseline. Also borderline blood pressures at the longterm. They do note that on January 10 the patient developed a fever, he was given apparently subcutaneous saline and a dose of Rocephin as a one-time treatment. The patient appears to not have had any improvement and then is sent here. He is not able to give any additional history due to what appears delirium versus dementia. MD Complaint: generalized weakness -: days(s) Location: generalized Consistency: constant Improves with: none Worsens with: none - Related Data Home Medications Medication Instructions Recorded Confirmed Aspirin [[place] Aspirin EC] 81 mg PO DAILY 12/24/18 01/13/23 Atorvastatin [Lipitor] 20 mg PO HS@199912/24/18 01/13/23 Divalproex ER [Depakote ER] 500 mg PO BID 12/24/18 01/13/23 Acetaminophen [Tylenol 8 Hour] 650 mg PO Q6H PRN 01/13/23 01/13/23 Albuterol Sulfate [Albuterol 2 puff PO RT-Q6H PRN 01/13/23 01/13/23 Sulfate Hfa] Alfuzosin HCl [Alfuzosin HCl ER] 10 mg PO DAILY 01/13/23 01/13/23 Brimonidine Tartrate [Alphagan P 1 drops BOTH EYES BID 01/13/23 01/13/23 0.1% Ophth Soln] Budesonide/Formoterol Fumarate 2 puff INHALATION RT-BID 01/13/23 01/13/23 [Symbicort 160-4.5 Mcg Inhaler] Cetirizine HCl [Zyrtec] 10 mg PO DAILY 01/13/23 01/13/23 Cholecalciferol [Vitamin D3 (25 75 mcg PO DAILY 01/13/23 01/13/23 Mcg = 1000 Iu)] Ergocalciferol (Vitamin D2) 1,250 mcg PO QMONTHLY 01/13/23 01/13/23 [Drisdol (50,000 Iu)] Escitalopram [Lexapro] 5 mg PO DAILY 01/13/23 01/13/23 Ferrous Sulfate [Iron (65 MG 325 mg PO HS 01/13/23 01/13/23 Elemental)] Lactulose 10 gm PO DAILY 01/13/23 01/13/23 Levothyroxine Sodium [Levoxyl] 88 mcg PO DAILY 01/13/23 01/13/23 Magnesium Oxide [Magox 400] 400 mg PO DAILY 01/13/23 01/13/23 Melatonin 3 mg PO HS 01/13/23 01/13/23 Mirtazapine [Remeron] 15 mg PO HS 01/13/23 01/13/23 allopurinoL [Zyloprim] 100 mg PO DAILY 01/13/23 01/13/23 lisinopriL [Zestril] 5 mg PO DAILY 01/13/23 01/13/23 oxyCODONE-APAP 7.5-325MG [Percocet 1 tab PO Q6HR 01/13/23 01/13/23 7.5-325 mg] Allergies Allergy/AdvReac Type Severity Reaction Status Date / Time No Known Allergies Allergy Verified 01/13/23 15:47 Review of Systems ROS Statement: Those systems with pertinent positive or pertinent negative responses have been documented in the HPI. ROS Other: All systems not noted in ROS Statement are negative. Limitations: ROS unobtainable due to patients medical condition Cardiovascular: Denies: chest pain Gastrointestinal: Denies: abdominal pain Musculoskeletal: Denies: back pain Neurological: Denies: headache Past Medical History Past Medical History: Atrial Fibrillation, Heart Failure, Hyperlipidemia, Hypertension, Renal Disease, Syncope Additional Past Medical History / Comment(s): anemia, UTI, Hypothyroid, depression, dysphagia History of Any Multi-Drug Resistant Organisms: None Reported Additional Past Surgical History / Comment(s): unknown Past Anesthesia/Blood Transfusion Reactions: No Reported Reaction Past Psychological History: No Psychological Hx Reported Past Alcohol Use History: None Reported Past Drug Use History: None Reported - Past Family History Father History Unknown: Yes Mother History Unknown: Yes General Exam General appearance: obtunded Head exam: Present: atraumatic, normocephalic Eye exam: Present: normal appearance, EOMI. Absent: scleral icterus, conjunctival injection ENT exam: Present: mucous membranes dry Neck exam: Present: normal inspection, full ROM. Absent: tenderness, meningismus Respiratory exam: Present: rales (Bilateral bases), rhonchi. Absent: respiratory distress, wheezes, stridor Cardiovascular Exam: Present: normal rhythm, bradycardia, normal heart sounds. Absent: systolic murmur, diastolic murmur, rubs, gallop GI/Abdominal exam: Present: soft. Absent: distended, tenderness, guarding, rebound, rigid, mass Extremities exam: Present: normal inspection, normal capillary refill. Absent: pedal edema, calf tenderness Neurological exam: Present: alert, CN II-XII intact. Absent: oriented X3, motor sensory deficit Skin exam: Present: warm, dry, intact, normal color. Absent: rash Course Vital Signs 01/13/23 01/13/23 01/13/23 14:27 15:27 16:12 Temperature 97.9 F 98 F Pulse Rate 58 L 60 66 Respiratory 20 16 22 Rate Blood Pressure 122/64 112/66 101/59 O2 Sat by Pulse 93 L 94 L 97 Oximetry 01/13/23 01/13/23 01/13/23 17:09 18:31 22:00 Temperature 98.1 F Pulse Rate 66 74 79 Respiratory 16 12 18 Rate Blood Pressure 106/77 115/72 129/74 O2 Sat by Pulse 97 95 96 Oximetry Medical Decision Making - Medical Decision Making This patient is 72-year-old man sent here from longterm for worsening of weakness and elevation of kidney tests. On arrival he does appear to be dehydrated, is requesting fluids, and has higher BUN and creatinine than had been found at the longterm. Patient started with fluids. Case is discussed with admitting physician and the patient be admitted with nephrology consultation. Chest x-ray obtained which I interpreted as showing no acute infiltrate or congestive heart failure Was pt. sent in by a medical professional or institution (, PA, AUTOMATION TESTER, urgent care, hospital, or longterm...) When possible be specific @ -Patient sent from longterm Did you speak to anyone other than the patient for history (EMS, parent, family, police, friend...)? What history was obtained from this source @ -[No] Did you review nursing and triage notes (agree or disagree)? Why? @ -[I reviewed and agree with nursing and triage notes] Were old charts reviewed (outside hosp., previous admission, EMS record, old EKG, old radiological studies, urgent care reports/EKG's, longterm records)? Report findings @ - old charts were reviewed and longterm transfer papers reviewed Differential Diagnosis (chest pain, altered mental status, abdominal pain women, abdominal pain men, vaginal bleeding, weakness, fever, dyspnea, syncope, headache, dizziness, GI bleed, back pain, seizure, CVA, palpatations, mental health, musculoskeletal)? @ -[Differential Altered Mental Status: Hypoglycemia, DKA, hypercapnia, ETOH, overdose, CO poisoning, trauma, myxedema coma, HTN encephalopathy, infection, encephalitis, psychosis, intercranial hemorrhage, hepatic encephalopathy, meningitis, CVA, this is not meant to be an all-inclusive list EKG interpreted by me (3pts min.). @ -[As above] X-rays interpreted by me (1pt min.). @ -[As above CT interpreted by me (1pt min.). @ -[None done] U/S interpreted by me (1pt. min.). @ -[None done] What testing was considered but not performed or refused? (CT, X-rays, U/S, labs)? Why? @ -[None] What meds were considered but not given or refused? Why? @ -[None] Did you discuss the management of the patient with other professionals (professionals i.e. , PA, AUTOMATION TESTER, lab, RT, psych nurse, socially responsible investment adviser, call circuit worker, teacher, guest relation officer, medical case worker)? Give summary @ -[Case discussed with admitting physician Was smoking cessation discussed for >3mins.? @ -[No] Was critical care preformed (if so, how long)? @ -[No] Were there social determinants of health that impacted care today? How? (Homelessness, low income, unemployed, alcoholism, drug addiction, transportation, low edu. Level, literacy, decrease access to med. care, skilled nursing, rehab)? @ -[No] Was there de-escalation of care discussed even if they declined (Discuss DNR or withdrawal of care, Hospice)? DNR status @ -[No] What co-morbidities impacted this encounter? (DM, HTN, Smoking, COPD, CAD, Cancer, CVA, ARF, Chemo, Hep., AIDS, mental health diagnosis, sleep apnea, morbid obesity)? @ -[None] Was patient admitted / discharged? Hospital course, mention meds given and route, prescriptions, significant lab abnormalities, going to OR and other pertinent info. @ -[Patient is admitted for further evaluation and treatment as well as nephrology consultation Undiagnosed new problem with uncertain prognosis? @ -[No] Drug Therapy requiring intensive monitoring for toxicity (Heparin, Nitro, Insulin, Cardizem)? @ -[No] Were any procedures done? @ -[No] Diagnosis/symptom? @ -[Acute altered mental status Acute renal failure 2 dehydration Acute, or Chronic, or Acute on Chronic? @ -[default] Uncomplicated (without systemic symptoms) or Complicated (systemic symptoms)? @ -[,complicated Side effects of treatment? @ -[No] Exacerbation, Progression, or Severe Exacerbation? @ -[No] Poses a threat to life or bodily function? How? (Chest pain, USA, NC, pneumonia, PE, COPD, DKA, ARF, appy, cholecystitis, CVA, Diverticulitis, Homicidal, Suicidal, threat to staff... and all critical care pts) @ -[yes - Lab Data Result diagrams: 01/17/23 05:40 01/17/23 05:40 Lab Results 01/13/23 01/13/23 01/13/23 Range/Units 15:20 15:20 15:20 WBC 8.5 (3.8-10.6) k/uL RBC 3.48 L (4.30-5.90) m/uL Hgb 10.9 L (13.0-17.5) gm/dL Hct 34.8 L (39.0-53.0) % MCV 99.9 (80.0-100.0) fL MCH 31.3 (25.0-35.0) pg MCHC 31.3 (31.0-37.0) g/dL RDW 14.8 (11.5-15.5) % Plt Count 412 (150-450) k/uL MPV 8.4 Neutrophils % 71 % Lymphocytes % 17 % Monocytes % 7 % Eosinophils % 3 % Basophils % 0 % Neutrophils # 6.0 (1.3-7.7) k/uL Lymphocytes # 1.5 (1.0-4.8) k/uL Monocytes # 0.6 (0-1.0) k/uL Eosinophils # 0.3 (0-0.7) k/uL Basophils # 0.0 (0-0.2) k/uL Hypochromasia Moderate Macrocytosis Slight PT 10.8 (9.0-12.0) sec INR 1.0 (<1.2) APTT 26.9 (22.0-30.0) sec Sodium 143 (137-145) mmol/L Potassium 5.5 H (3.5-5.1) mmol/L Chloride 108 H (98-107) mmol/L Carbon Dioxide 24 (22-30) mmol/L Anion Gap 11 mmol/L BUN 98 H (9-20) mg/dL Creatinine 2.94 H (0.66-1.25) mg/dL Est GFR (CKD-EPI)AfAm 24 (>60 ml/min/1.73 sqM) Est GFR (CKD-EPI)NonAf 21 (>60 ml/min/1.73 sqM) Glucose 119 H (74-99) mg/dL Plasma Lactic Acid Zafar (0.7-2.0) mmol/L Calcium 9.0 (8.4-10.2) mg/dL Total Bilirubin 0.3 (0.2-1.3) mg/dL AST 228 H (17-59) U/L ALT 134 H (4-49) U/L Alkaline Phosphatase 193 H (38-126) U/L Troponin I (0.000-0.034) ng/mL Total Protein 7.0 (6.3-8.2) g/dL Albumin 3.0 L (3.5-5.0) g/dL 01/13/23 01/13/23 Range/Units 15:20 15:20 WBC (3.8-10.6) k/uL RBC (4.30-5.90) m/uL Hgb (13.0-17.5) gm/dL Hct (39.0-53.0) % MCV (80.0-100.0) fL MCH (25.0-35.0) pg MCHC (31.0-37.0) g/dL RDW (11.5-15.5) % Plt Count (150-450) k/uL MPV Neutrophils % % Lymphocytes % % Monocytes % % Eosinophils % % Basophils % % Neutrophils # (1.3-7.7) k/uL Lymphocytes # (1.0-4.8) k/uL Monocytes # (0-1.0) k/uL Eosinophils # (0-0.7) k/uL Basophils # (0-0.2) k/uL Hypochromasia Macrocytosis PT (9.0-12.0) sec INR (<1.2) APTT (22.0-30.0) sec Sodium (137-145) mmol/L Potassium (3.5-5.1) mmol/L Chloride (98-107) mmol/L Carbon Dioxide (22-30) mmol/L Anion Gap mmol/L BUN (9-20) mg/dL Creatinine (0.66-1.25) mg/dL Est GFR (CKD-EPI)AfAm (>60 ml/min/1.73 sqM) Est GFR (CKD-EPI)NonAf (>60 ml/min/1.73 sqM) Glucose (74-99) mg/dL Plasma Lactic Acid Zafar 1.1 (0.7-2.0) mmol/L Calcium (8.4-10.2) mg/dL Total Bilirubin (0.2-1.3) mg/dL AST (17-59) U/L ALT (4-49) U/L Alkaline Phosphatase (38-126) U/L Troponin I <0.012 (0.000-0.034) ng/mL Total Protein (6.3-8.2) g/dL Albumin (3.5-5.0) g/dL Disposition Clinical Impression: Dehydration, Acute kidney injury Disposition: ADMITTED IP TO THIS HOSP Condition: Fair
--- NOTE | 2023-01-13 15:48 | XR ---
EXAMINATION TYPE: XR chest 2V DATE OF EXAM: 01/13/2023 3:36 PM COMPARISON: Chest radiographs from 12/29/2018 TECHNIQUE: XR chest 2V Frontal and lateral views of the chest. CLINICAL INDICATION:Male, 72 years old with history of Weakness; FINDINGS: Lungs/Pleura: There is no evidence of pleural effusion, focal consolidation, or pneumothorax. Pulmonary vascularity: Unremarkable. Heart/mediastinum: Cardiomediastinal silhouette is unremarkable. Musculoskeletal: No acute osseous pathology. Bilateral shoulder arthropathy. IMPRESSION: No acute cardiopulmonary disease/process.
[2023-01-13 15:59] LABS: Basophils % (A) 0 %; Eosinophils # (A) 0.3 k/uL (0-0.7); Eosinophils % (A) 3 %; HCT 34.8 % (39.0-53.0); HGB 10.9 gm/dL (13.0-17.5); Hypochromasia Moderate; Lymphocytes # (A) 1.5 k/uL (1.0-4.8); Lymphocytes % (A) 17 %; MCH 31.3 pg (25.0-35.0); MCHC 31.3 g/dL (31.0-37.0); MCV 99.9 fL (80.0-100.0); Macrocytosis Slight; Mean Platelet Volume 8.4; Monocytes # (A) 0.6 k/uL (0-1.0); Monocytes % (A) 7 %; Neutrophils % (A) 71 %; Platelet Count 412 k/uL (150-450); RBC 3.48 m/uL (4.30-5.90); RDW 14.8 % (11.5-15.5); WBC 8.5 k/uL (3.8-10.6)
[2023-01-13 16:09] LABS: Partial Thromboplastin Time 26.9 sec (22.0-30.0); Prothrombin Time 10.8 sec (9.0-12.0)
[2023-01-13 16:15] LABS: Potassium 5.5 mmol/L (3.5-5.1); Total Bilirubin 0.3 mg/dL (0.2-1.3)
[2023-01-13] MEDS ORDERED: SODIUM CHLORIDE 0.9% 1,000 ML IV ONE (18:32)
[2023-01-13] MEDS ORDERED: SODIUM CHLORIDE 0.9% 1,000 ML IV STA (18:32)
[2023-01-13] MEDS ORDERED: ONDANSETRON 4 MG/2 ML VIAL IVP PRN (20:39)
[2023-01-13] MEDS ORDERED: NALOXONE 0.4 MG/ML 1 ML VIAL IV PRN (20:39)
[2023-01-13] MEDS: SODIUM CHLORIDE 0.9% 1,000 ML IV SCH (21:05)
[2023-01-13] MEDS: FAMOTIDINE 20 MG TAB PO SCH (21:18)
[2023-01-14] MEDS: SODIUM CHLORIDE 0.9% 1,000 ML IV SCH (06:19)
[2023-01-14 08:28] LABS: African American GFR (CKD) 37 (>60 ml/min/1.73 sqM); Anion Gap 10 mmol/L; Blood Urea Nitrogen 73 mg/dL (9-20); Calcium 8.6 mg/dL (8.4-10.2); Carbon Dioxide 21 mmol/L (22-30); Chloride 117 mmol/L (98-107); Glucose 92 mg/dL (74-99); Magnesium 3.3 mg/dL (1.6-2.3); Non-African American GFR(CKD) 32 (>60 ml/min/1.73 sqM); Potassium 5.6 mmol/L (3.5-5.1); Sodium 148 mmol/L (137-145)
[2023-01-14] MEDS: FAMOTIDINE 20 MG TAB PO SCH (09:24)
[2023-01-14] MEDS ORDERED: NON FORMULARY DRUG (Acetaminophen [Tylenol 8 Hour] 650 MG Tablet) PO PRN (09:58)
[2023-01-14] MEDS ORDERED: SODIUM CHLORIDE 0.45% 1,000 ML IV SCH ×2 (10:00→10:15)
[2023-01-14] MEDS ORDERED: DEXTROSE 50% SYRINGE 50 ML IVP STA (10:02)
[2023-01-14] MEDS ORDERED: SODIUM BICARB 8.4% 50 ML SYR (1 MEQ/ML) IV STA (10:02)
[2023-01-14] MEDS ORDERED: SODIUM ZIRCONIUM CYCLOSILICATE 10 GM PACKET PO ONE (10:03)
--- NOTE | 2023-01-14 10:06 | P.NPCON ---
History of Present Illness - Reason for Consult acute renal failure, chronic renal failure - History of Present Illness Reason for consultation: Acute kidney injury on chronic kidney disease History of present illness: Patient is a 72-year-old male seen in renal consultation for acute kidney injury on chronic kidney disease. Patient has chronic kidney disease stage III with baseline creatinine near 1.3 secondary to ALLERGIC interstitial nephritis and cardiorenal syndrome. Creatinine was 2.94 on admission and is 2.02 today. Patient is currently quite somnolent and is moaning. He is not a reliable historian. Patient presents from extended care facility due to worsening renal function. It is noted that he was also hypotensive at the [facility]. He had a recent fever for which she was given a dose of Rocephin and fluids at the [facility]. Patient has a history of dementia. He did receive a liter of normal saline on admission and is currently receiving normal saline at 1 30 mL an hour. Patient is cur rently afebrile and his white count is normal. I do see lisinopril and his home medication list which is currently held. I don't see any nonsteroidals. No history of diabetes. Renal function is improved however potassium remains high in sodium is also elevated at 148 today. Vital signs are stable. General: Lethargic. HEENT: Head exam is unremarkable. LUNGS: No audible rhonchi or wheezes. HEART: Rate and Rhythm are regular. ABDOMEN: Soft. No distention. EXTREMITITES: No edema. Past Medical History Past Medical History: Atrial Fibrillation, Heart Failure, Hyperlipidemia, Hypertension, Renal Disease, Syncope Additional Past Medical History / Comment(s): anemia, UTI, Hypothyroid, depression, dysphagia History of Any Multi-Drug Resistant Organisms: None Reported Additional Past Surgical History / Comment(s): unknown Past Anesthesia/Blood Transfusion Reactions: No Reported Reaction Past Psychological History: No Psychological Hx Reported Past Alcohol Use History: None Reported Past Drug Use History: None Reported - Past Family History Father History Unknown: Yes Mother History Unknown: Yes Medications and Allergies Home Medications Medication Instructions Recorded Confirmed Type Aspirin [[place] Aspirin EC] 81 mg PO DAILY 12/24/18 01/13/23 History Atorvastatin [Lipitor] 20 mg PO HS@2000 12/24/18 01/13/23 History Divalproex ER [Depakote ER] 500 mg PO BID 12/24/18 01/13/23 History Acetaminophen [Tylenol 8 Hour] 650 mg PO Q6H PRN 01/13/23 01/13/23 History Albuterol Sulfate [Albuterol 2 puff PO RT-Q6H PRN 01/13/23 01/13/23 History Sulfate Hfa] Alfuzosin HCl [Alfuzosin HCl ER] 10 mg PO DAILY 01/13/23 01/13/23 History Brimonidine Tartrate [Alphagan P 1 drops BOTH EYES BID 01/13/23 01/13/23 History 0.1% Ophth Soln] Budesonide/Formoterol Fumarate 2 puff INHALATION RT-BID 01/13/23 01/13/23 Histor y [Symbicort 160-4.5 Mcg Inhaler] Cetirizine HCl [Zyrtec] 10 mg PO DAILY 01/13/23 01/13/23 History Cholecalciferol [Vitamin D3 (25 75 mcg PO DAILY 01/13/23 01/13/23 History Mcg = 1000 Iu)] Ergocalciferol (Vitamin D2) 1,250 mcg PO QMONTHLY 01/13/23 01/13/23 History [Drisdol (50,000 Iu)] Escitalopram [Lexapro] 5 mg PO DAILY 01/13/23 01/13/23 History Ferrous Sulfate [Iron (65 MG 325 mg PO HS 01/13/23 01/13/23 History Elemental)] Lactulose 10 gm PO DAILY 01/13/23 01/13/23 History Levothyroxine Sodium [Levoxyl] 88 mcg PO DAILY 01/13/23 01/13/23 History Magnesium Oxide [Magox 400] 400 mg PO DAILY 01/13/23 01/13/23 History Melatonin 3 mg PO HS 01/13/23 01/13/23 History Mirtazapine [Remeron] 15 mg PO HS 01/13/23 01/13/23 History allopurinoL [Zyloprim] 100 mg PO DAILY 01/13/23 01/13/23 History lisinopriL [Zestril] 5 mg PO DAILY 01/13/23 01/13/23 History oxyCODONE-APAP 7.5-325MG [Percocet 1 tab PO Q6HR 01/13/23 01/13/23 History 7.5-325 mg] Allergies Allergy/AdvReac Type Severity Reaction Status Date / Time No Known Allergies Allergy Verified 01/13/23 15:47 Physical Exam Vitals: Vital Signs Temp Pulse Pulse Resp BP BP Pulse Ox 01/14/23 07:19 98.5 F 72 18 107/63 94 L 01/14/23 03:51 99.4 F 68 18 131/73 97 01/13/23 23:06 97.6 F 85 18 134/76 97 01/13/23 22:00 98.1 F 79 18 129/74 96 01/13/23 18:31 74 12 115/72 95 01/13/23 17:09 66 16 106/77 97 01/13/23 16:12 66 22 101/59 97 01/13/23 15:27 98 F 60 16 112/66 94 L 01/13/23 14:27 97.9 F 58 L 20 122/64 93 L Intake and Output 01/13/23 01/14/23 01/14/23 22:59 06:59 14:59 Intake Total 0 Balance 0 Intake: Oral 0 Other: # Voids 1 Weight 106.367 kg Results - Lab Results Most recent lab results Calcium 8.6 mg/dL (8.4-10.2) 01/14/23 07:21 Magnesium 3.3 mg/dL (1.6-2.3) H 01/14/23 07:21 01/13/23 15:20 01/14/23 07:21 Assessment and Plan Plan: Assessment: 1. Acute kidney injury mostly prerenal secondary to hypotension and hypo volemia. Creatinine 2.94 on admission is 2.02 today. 2. Chronic kidney disease stage IIIa with baseline creatinine near 1.3 secondary to ALLERGIC interstitial nephritis and cardiorenal syndrome. 3. Hyperkalemia secondary to acute kidney injury and lisinopril. 4. Hypernatremia from lack of oral water intake. 5. Hypertension with chronic kidney disease. Blood pressure on the lower side currently. 6. Hypermagnesemia secondary to acute kidney injury and magnesium supplementation. Plan: Change IV fluids to half-normal saline at 100 mL an hour. Check UA. Check renal ultrasound. Check bladder scan to make sure no urinary retention. Continue to hold antihypertensives. 10 units IV regular insulin with an appendectomy D50 now. 2 A sodium bicarbonate IV push now. 10 g lokelma once now. Stopping magnesium supplementation. Repeat BMP this evening. Thank you for the consultation. I will continue to follow the patient with you during his hospital stay.
[2023-01-14] MEDS ORDERED: INSULIN REGULAR 100 UNIT/ML VIAL (IV) IV ONE (10:30)
[2023-01-14] MEDS: DIVALPROEX ER 500 MG TAB.ER.24H PO SCH ×2 (10:35→21:05)
[2023-01-14] MEDS: LEVOTHYROXINE 88 MCG TAB PO SCH (10:36)
[2023-01-14 13:40] LABS: Amorphous Sediment,Urine Occasional /hpf; Appearance,Urine Cloudy (Clear); Bilirubin,Urine Negative (Negative); Blood,Urine Small (Negative); Color,Urine Light Yellow; Glucose,Urine (UA) Trace (Negative); Ketones,Urine Negative (Negative); Leukocyte Esterase,Urine Large (Negative); Nitrite,Urine Negative (Negative); Protein,Urine Trace (Negative); Specific Gravity,Urine 1.012 (1.001-1.035); Urobilinogen,Urine <2.0 mg/dL (<2.0)
--- NOTE | 2023-01-14 13:58 | US ---
EXAMINATION TYPE: US abd limited kidneys/bladder DATE OF EXAM: 01/14/2023 COMPARISON: 12/24/2018 CLINICAL INDICATION: Male, 72 years old with history of elevated liver enzymes; elevated LFTs TECHNIQUE: Multiple sonographic images of the right upper quadrant are obtained. FINDINGS: EXAM MEASUREMENTS: Liver Length: 18.2 cm Gallbladder Wall: 0.3 cm CBD: 0.5 cm Right Kidney: 11.3x6.9x8.0 cm RECORDS AND TAPE RECORDINGS ENGINEER NOTES: Pancreas: Obscured by bowel gas Liver: Left lobe obscured by overlying bowel gas, right lobe limited due to overlying bowel gas and rib shadows Gallbladder: Partially obscured by overlying bowel gas and rib shadows Evidence for sonographic Appiah's sign: No CBD: wnl Right Kidney: No hydronephrosis or masses seen Left Kidney: No hydronephrosis or masses seen Bladder: mildly distended, jets not seen. No roberts seen within bladder, possible outpouching seen at inferior aspect Exam limited due to bowel gas, rib shadows, and patient inability to move IMPRESSION: 1. Limited exam as discussed above demonstrates a possible bladder diverticulum. 2. No evidence of gallstones or renal calculi as visualized.
[2023-01-14] MEDS: HEPARIN SODIUM,PORCINE/PF 5,000 UNIT/0.5 ML SYRINGE SQ SCH ×2 (15:33→21:05)
[2023-01-14] MEDS: LACTULOSE 20 GM/30 ML CUP PO PRN (16:01)
[2023-01-14 16:45] LABS: African American GFR (CKD) 44 (>60 ml/min/1.73 sqM); Anion Gap 8 mmol/L; Blood Urea Nitrogen 66 mg/dL (9-20); Calcium 8.9 mg/dL (8.4-10.2); Carbon Dioxide 26 mmol/L (22-30); Chloride 115 mmol/L (98-107); Glucose 145 mg/dL (74-99); Non-African American GFR(CKD) 38 (>60 ml/min/1.73 sqM); Sodium 149 mmol/L (137-145)
[2023-01-14] MEDS: SYMBICORT 160-4.5 MCG INHALER INHALATION SCH (20:41)
[2023-01-14] MEDS: MELATONIN 3 MG TABLET PO SCH (21:06)
[2023-01-14] MEDS: ATORVASTATIN 20 MG TAB PO SCH (21:06)
[2023-01-14] MEDS: ACETAMINOPHEN TAB 325 MG TAB PO PRN (21:06)
[2023-01-14] MEDS: BRIMONIDINE TARTRATE 0.2% DROPS 5 ML BTL BOTH EYES SCH (21:07)
[2023-01-14] MEDS: DEXTROSE 5% IN WATER 1,000 ML IV SCH (21:09)
--- NOTE | 2023-01-14 23:05 | P.HPIM ---
History of Present Illness H&P Date: 01/14/23 Chief Complaint: Generalized weakness Patient is a 72-year-old male with a known history of chronic CHF with preserved ejection fraction, chronic kidney disease hypertension, hyperlipidemia, hypothyroidism and dysphagia who is currently at [facility] was sent to the ER due to generalized weakness and abnormal lab work-up showing increased BUN and creatinine level. Patient was also given a dose of ceftriaxone due to fever and hypotension at sn[facility].. Otherwise patient was afebrile on admission. Tmax 99.4. 93% on room air on admission. Patient very lethargic, could not provide any history. Also has underlying dementia. Chest x-ray showed no acute cardiopulmonary process/disease. Laboratory data showed WBC 8.4 hemoglobin 10.9 and platelets 412 Sodium 143 potassium 5.5 chloride 108 bicarb is 24 BUN 98 and creatinine 2.94. Blood sugar is 119 AST 228 ALT 134 and alk phos 193 and albumin 3.0. Urinalysis showed large leukocyte esterase and nitrite negative. Repeat laboratory data this morning showed sodium level 148 potassium 5.6 and chloride 117 BUN and creatinine with slight improvement to 73 and 2.02. Magnesium 3.3. Review of Systems ROS unobtainable: due to mental status Past Medical History Past Medical History: Atrial Fibrillation, Heart Failure, Hyperlipidemia, Hypert ension, Renal Disease, Syncope Additional Past Medical History / Comment(s): anemia, UTI, Hypothyroid, depression, dysphagia History of Any Multi-Drug Resistant Organisms: None Reported Additional Past Surgical History / Comment(s): unknown Past Anesthesia/Blood Transfusion Reactions: No Reported Reaction Past Psychological History: No Psychological Hx Reported Past Alcohol Use History: None Reported Past Drug Use History: None Reported - Past Family History Father History Unknown: Yes Mother History Unknown: Yes Medications and Allergies Home Medications Medication Instructions Recorded Confirmed Type Aspirin [[place] Aspirin EC] 81 mg PO DAILY 12/24/18 01/13/23 History Atorvastatin [Lipitor] 20 mg PO [id number] 01/13/23 History Divalproex ER [Depakote ER] 500 mg PO BID 12/24/18 01/13/23 History Acetaminophen [Tylenol 8 Hour] 650 mg PO Q6H PRN 01/13/23 01/13/23 History Albuterol Sulfate [Albuterol 2 puff PO RT-Q6H PRN 01/13/23 01/13/23 History Sulfate Hfa] Alfuzosin HCl [Alfuzosin HCl ER] 10 mg PO DAILY 01/13/23 01/13/23 History Brimonidine Tartrate [Alphagan P 1 drops BOTH EYES BID 01/13/23 01/13/23 History 0.1% Ophth Soln] Budesonide/Formoterol Fumarate 2 puff INHALATION RT-BID 01/13/23 01/13/23 History [Symbicort 160-4.5 Mcg Inhaler] Cetirizine HCl [Zyrtec] 10 mg PO DAILY 01/13/23 01/13/23 History Cholecalciferol [Vitamin D3 (25 75 mcg PO DAILY 01/13/23 01/13/23 History Mcg = 1000 Iu)] Ergocalciferol (Vitamin D2) 1,250 mcg PO QMONTHLY 01/13/23 01/13/23 History [Drisdol (50,000 Iu)] Escitalopram [Lexapro] 5 mg PO DAILY 01/13/23 01/13/23 History Ferrous Sulfate [Iron (65 MG 325 mg PO HS 01/13/23 01/13/23 History Elemental)] Lactulose 10 gm PO DAILY 01/13/23 01/13/23 History Levothyroxine Sodium [Levoxyl] 88 mcg PO DAILY 01/13/23 01/13/23 History Magnesium Oxide [Magox 400] 400 mg PO DAILY 01/13/23 01/13/23 History Melatonin 3 mg PO HS 01/13/23 01/13/23 History Mirtazapine [Remeron] 15 mg PO HS 01/13/23 01/13/23 History allopurinoL [Zyloprim] 100 mg PO DAILY 01/13/23 01/13/23 History lisinopriL [Zestril] 5 mg PO DAILY 01/13/23 01/13/23 History oxyCODONE-APAP 7.5-325MG [Percocet 1 tab PO Q6HR 01/13/23 01/13/23 History 7.5-325 mg] Allergies Allergy/AdvReac Type Severity Reaction Status Date / Time No Known Allergies Allergy Verified 01/13/23 15:47 Physical Exam Vitals: Vital Signs Temp Pulse Pulse Resp BP BP Pulse Ox 01/14/23 07:19 98.5 F 72 18 107/63 94 L 01/14/23 03:51 99.4 F 68 18 131/73 97 01/13/23 23:06 97.6 F 85 18 134/76 97 01/13/23 22:00 98.1 F 79 18 129/74 96 01/13/23 18:31 74 12 115/72 95 01/13/23 17:09 66 16 106/77 97 01/13/23 16:12 66 22 101/59 97 01/13/23 15:27 98 F 60 16 112/66 94 L 01/13/23 14:27 97.9 F 58 L 20 122/64 93 L Intake and Output 01/13/23 01/14/23 01/14/23 22:59 06:59 14:59 Intake Total 0 Balance 0 Intake: Oral 0 Other: # Voids 1 Weight 106.367 kg PHYSICAL EXAMINATION: Patient is lying in the bed. Awake alert but could not provide any history. Lethargic and weak. HEENT: Normocephalic. Neck is supple. Pupils reactive. Nostrils clear. Oral cavity is moist. Neck reveals no JVD, carotid bruits, or thyromegaly. CHEST EXAMINATION: Trachea is central. Symmetrical expansion. Lung knight clear to auscultation and percussion. CARDIAC: Normal S1, S2 with no gallops. No murmurs. ABDOMEN: Soft. Bowel sounds present. Nontender. No organomegaly. No abdominal bruits. Extremities: Bilateral lower extremity trace edema. No clubbing or cyanosis Neurologically patient is lethargic and somnolent. Able to move extremities while in bed. Skin: No rash or skin lesions. Psychiatric: Could not be assessed at this time., Musculoskeletal: No joint swelling or deformity. Results CBC & Chem 7: 01/13/23 15:20 01/14/23 16:19 Labs: Abnormal Lab Results - Last 24 Hours (Table) 01/13/23 01/13/23 01/14/23 Range/Units 15:20 15:20 07:21 RBC 3.48 L (4.30-5.90) m/uL Hgb 10.9 L (13.0-17.5) gm/dL Hct 34.8 L (39.0-53.0) % Sodium 148 H (137-145) mmol/L Potassium 5.5 H 5.6 H (3.5-5.1) mmol/L Chloride 108 H 117 H (98-107) mmol/L Carbon Dioxide 21 L (22-30) mmol/L BUN 98 H 73 H (9-20) mg/dL Creatinine 2.94 H 2.02 H (0.66-1.25) mg/dL Glucose 119 H (74-99) mg/dL Magnesium 3.3 H (1.6-2.3) mg/dL AST 228 H (17-59) U/L ALT 134 H (4-49) U/L Alkaline Phosphatase 193 H (38-126) U/L Albumin 3.0 L (3.5-5.0) g/dL Thrombosis Risk Factor Assmnt - DVT/VTE Prophylaxis DVT/VTE Prophylaxis: Pharmacologic Prophylaxis ordered Assessment and Plan Assessment: Generalized weakness and altered mental status possible metabolic encephalopathy. Acute on chronic kidney disease stage III with baseline creatinine 1.3 and creatinine was 2.94 on admission. Likely due to prerenal and possible ATN. History of interstitial nephritis and cardiorenal syndrome Hyperkalemia secondary to acute kidney injury Hypernatremia due to dehydration and volume depletion Elevated liver enzymes Hypertension Chronic CHF with preserved ejection fraction History of DVT status post IVC filter placement History of CVA with mild right hemiparesis Hypothyroidism Depression COPD not in exacerbation DVT prophylaxis with heparin subcu Plan: Patient will be continued on IV hydration. Changed to half-normal saline due to hyponatremia. Patient was given insulin/D50 and sodium bicarbonate for hyperkalemia. Repeat BMP was ordered later this afternoon. Ultrasound abdomen due to elevated liver enzymes. Lisinopril is on hold due to hyperkalemia. Continue with aspirin, statins, levothyroxine and Depakote. Nephrology is on board. Continue to follow closely. Time with Patient: Greater than 30
[2023-01-15] MEDS: LEVOTHYROXINE 88 MCG TAB PO SCH (07:44)
[2023-01-15] MEDS: DEXTROSE 5% IN WATER 1,000 ML IV SCH ×2 (07:44→17:07)
[2023-01-15] MEDS: SYMBICORT 160-4.5 MCG INHALER INHALATION SCH ×2 (08:31→20:25)
[2023-01-15 08:38] LABS: Basophils # (A) 0.06 X 10*3/uL (0.00-0.10); Basophils % (A) 0.5 %; Eosinophils # (A) 0.04 X 10*3/uL (0.04-0.35); Eosinophils % (A) 0.3 %; HCT 34.4 % (39.6-50.0); HGB 10.2 g/dL (13.0-17.0); Lymphocytes # (A) 1.57 X 10*3/uL (0.90-5.00); Lymphocytes % (A) 11.9 %; MCH 30.8 pg (27.0-32.0); MCHC 29.7 g/dL (32.0-37.0); MCV 103.9 fL (80.0-97.0); Mean Platelet Volume 11.5 fL (9.5-12.2); Monocytes # (A) 1.39 X 10*3/uL (0.20-1.00); Monocytes % (A) 10.5 %; NRBC Per 100 WBC 0 /100 WBCS (0.0-0.0); Neutrophils # (A) 9.89 X 10*3/uL (1.80-7.70); Neutrophils % (A) 74.8 %; Platelet Count 327 X 10*3/uL (140-440); RBC 3.31 X 10*6/uL (4.40-5.60); RDW 16.1 % (11.5-14.5); WBC 13.22 X 10*3/uL (4.50-10.00)
[2023-01-15 08:44] LABS: African American GFR (CKD) 49.5 (60.0-200.0); Anion Gap 7.8 mmol/L (10.00-18.00); BUN/Creat Ratio 30.75 Ratio (12.00-20.00); Blood Urea Nitrogen 49.2 mg/dL (9.0-27.0); Calcium 9.2 mg/dL (8.7-10.3); Carbon Dioxide 24.2 mmol/L (20.0-27.5); Non-African American GFR(CKD) 42.7 (60.0-200.0); Potassium 4.9 mmol/L (3.5-5.5)
[2023-01-15] MEDS ORDERED: MAGNESIUM OXIDE 400 MG TAB PO SCH (09:00)
[2023-01-15] MEDS: FAMOTIDINE 20 MG TAB PO SCH (09:14)
[2023-01-15] MEDS: DIVALPROEX ER 500 MG TAB.ER.24H PO SCH ×2 (09:14→21:19)
[2023-01-15] MEDS: BRIMONIDINE TARTRATE 0.2% DROPS 5 ML BTL BOTH EYES SCH ×2 (09:14→21:19)
[2023-01-15] MEDS: allopurinoL 100 MG TAB PO SCH (09:14)
[2023-01-15] MEDS: ESCITALOPRAM 5 MG TAB PO SCH (09:14)
[2023-01-15] MEDS: ASPIRIN 81 MG PO SCH (09:14)
[2023-01-15] MEDS: HEPARIN SODIUM,PORCINE/PF 5,000 UNIT/0.5 ML SYRINGE SQ SCH ×2 (09:14→17:06)
--- NOTE | 2023-01-15 12:34 | P.PN ---
Subjective Patient is seen in follow-up for acute kidney injury on chronic kidney disease. Renal function improving. Sodium level trending down with D5W. Oral intake just fair. Swallow eval pending. Resting in bed. Blood pressure stable. Has a Astorga catheter. Nonoliguric. Vital signs are stable. General: Sleepy. No acute distress. HEENT: Head exam is unremarkable. LUNGS: No audible rhonchi or wheezes. HEART: Rate and Rhythm are regular. ABDOMEN: Nontender. EXTREMITITES: No edema. Objective - Vital Signs Vital signs: Vital Signs Temp 98.1 F 01/15/23 07:20 Pulse 70 01/15/23 07:20 Resp 16 01/15/23 07:20 BP 136/64 01/15/23 07:20 Pulse Ox 96 01/15/23 07:20 FiO2 Intake & Output 01/14/23 01/15/23 01/15/23 18:59 06:59 18:59 Output Total 950 Balance -950 Output: Urine 950 Other: Voiding Method Incontinent Incontinent Indwelling Catheter # Voids 1,000 # Bowel Movements 1 1 - Labs CBC & Chem 7: 01/15/23 05:05 01/15/23 05:05 Labs: Abnormal Lab Results - Last 24 Hours (Table) 01/14/23 01/14/23 01/15/23 Range/Units 12:05 16:19 05:05 WBC 13.22 H (4.50-10.00) X 10*3/uL RBC 3.31 L (4.40-5.60) X 10*6/uL Hgb 10.2 L (13.0-17.0) g/dL Hct 34.4 L (39.6-50.0) % MCV 103.9 H (80.0-97.0) fL MCHC 29.7 L (32.0-37.0) g/dL RDW 16.1 H (11.5-14.5) % Immature Gran # 0.27 H (0.00-0.04) X 10*3/uL Neutrophils # 9.89 H (1.80-7.70) X 10*3/uL Monocytes # 1.39 H (0.20-1.00) X 10*3/uL Sodium 149 H (137-145) mmol/L Chloride 115 H (98-107) mmol/L Anion Gap (10.00-18.00) mmol/L BUN 66 H (9-20) mg/dL Creatinine 1.77 H (0.66-1.25) mg/dL Est GFR (CKD-EPI)AfAm (60.0-200.0) Est GFR (CKD-EPI)NonAf (60.0-200.0) BUN/Creatinine Ratio (12.00-20.00) Ratio Glucose 145 H (74-99) mg/dL Urine Protein Trace H (Negative) Urine Glucose (UA) Trace H (Negative) Urine Blood Small H (Negative) Ur Leukocyte Esterase Large H (Negative) Amorphous Sediment Occasional H (None) /hpf 01/15/23 Range/Units 05:05 WBC (4.50-10.00) X 10*3/uL RBC (4.40-5.60) X 10*6/uL Hgb (13.0-17.0) g/dL Hct (39.6-50.0) % MCV (80.0-97.0) fL MCHC (32.0-37.0) g/dL RDW (11.5-14.5) % Immature Gran # (0.00-0.04) X 10*3/uL Neutrophils # (1.80-7.70) X 10*3/uL Monocytes # (0.20-1.00) X 10*3/uL Sodium 147 H (137-145) mmol/L Chloride 115 H (98-107) mmol/L Anion Gap 7.80 L (10.00-18.00) mmol/L BUN 49.2 H (9-20) mg/dL Creatinine 1.6 H (0.66-1.25) mg/dL Est GFR (CKD-EPI)AfAm 49.5 L (60.0-200.0) Est GFR (CKD-EPI)NonAf 42.7 L (60.0-200.0) BUN/Creatinine Ratio 30.75 H (12.00-20.00) Ratio Glucose 155 H (74-99) mg/dL Urine Protein (Negative) Urine Glucose (UA) (Negative) Urine Blood (Negative) Ur Leukocyte Esterase (Negative) Amorphous Sediment (None) /hpf Assessment and Plan Plan: Assessment: 1. Acute kidney injury mostly prerenal secondary to hypotension and hypovolemia. Creatinine 2.94 on admission is 1.6 today. Trace protein on UA. No hydronephrosis noted on kidney ultrasound. 2. Chronic kidney disease stage IIIa with baseline creatinine near 1.3 secondary to ALLERGIC interstitial nephritis and cardiorenal syndrome. 3. Hyperkalemia secondary to acute kidney injury and lisinopril. Resolved. 4. Hypernatremia from lack of oral water intake. Improving with D5W. 5. Hypertension with chronic kidney disease. Stable. 6. Hypermagnesemia secondary to acute kidney injury and magnesium supplementation. Magnesium supplementation discontinued. 7. Urinary retention. Has Astorga catheter. Plan: Maintain D5W. Swallow eval pending. Add Flomax. Repeat labs in the morning.
[2023-01-15] MEDS: TAMSULOSIN 0.4 MG CAP.ER.24H PO SCH (17:06)
[2023-01-15] MEDS: ACETAMINOPHEN TAB 325 MG TAB PO PRN (21:19)
[2023-01-15] MEDS: ATORVASTATIN 20 MG TAB PO SCH (21:19)
[2023-01-15] MEDS: MELATONIN 3 MG TABLET PO SCH (21:19)
[2023-01-16] MEDS: HEPARIN SODIUM,PORCINE/PF 5,000 UNIT/0.5 ML SYRINGE SQ SCH ×4 (00:05→23:21)
[2023-01-16] MEDS: DEXTROSE 5% IN WATER 1,000 ML IV SCH ×2 (04:32→16:18)
[2023-01-16] MEDS: LEVOTHYROXINE 88 MCG TAB PO SCH (06:02)
[2023-01-16] MEDS: ACETAMINOPHEN TAB 325 MG TAB PO PRN ×2 (06:02→20:15)
[2023-01-16] MEDS: SYMBICORT 160-4.5 MCG INHALER INHALATION SCH ×2 (06:09→20:25)
[2023-01-16 06:13] LABS: African American GFR (CKD) 70 (>60 ml/min/1.73 sqM); Anion Gap 3 mmol/L; Blood Urea Nitrogen 32 mg/dL (9-20); Calcium 8.6 mg/dL (8.4-10.2); Carbon Dioxide 28 mmol/L (22-30); Chloride 112 mmol/L (98-107); Glucose 140 mg/dL (74-99); Non-African American GFR(CKD) 61 (>60 ml/min/1.73 sqM); Potassium 4.4 mmol/L (3.5-5.1); Sodium 143 mmol/L (137-145)
[2023-01-16] MEDS: TAMSULOSIN 0.4 MG CAP.ER.24H PO SCH (07:30)
[2023-01-16] MEDS: allopurinoL 100 MG TAB PO SCH (07:30)
[2023-01-16] MEDS: DIVALPROEX ER 500 MG TAB.ER.24H PO SCH ×2 (07:30→20:15)
[2023-01-16] MEDS: ASPIRIN 81 MG PO SCH (07:30)
[2023-01-16] MEDS: FAMOTIDINE 20 MG TAB PO SCH (07:30)
[2023-01-16] MEDS: ESCITALOPRAM 5 MG TAB PO SCH (07:30)
[2023-01-16] MEDS: BRIMONIDINE TARTRATE 0.2% DROPS 5 ML BTL BOTH EYES SCH ×2 (07:31→20:16)
[2023-01-16 09:13] LABS: Basophils # (A) 0.06 X 10*3/uL (0.00-0.10); Basophils % (A) 0.5 %; Eosinophils # (A) 0.21 X 10*3/uL (0.04-0.35); Eosinophils % (A) 1.6 %; HCT 32.9 % (39.6-50.0); HGB 9.7 g/dL (13.0-17.0); Immature Grans, Automated 3.1 %; Lymphocytes # (A) 2.61 X 10*3/uL (0.90-5.00); Lymphocytes % (A) 20.3 %; MCH 29.8 pg (27.0-32.0); MCHC 29.5 g/dL (32.0-37.0); MCV 101.2 fL (80.0-97.0); Mean Platelet Volume 11.9 fL (9.5-12.2); Monocytes # (A) 1.18 X 10*3/uL (0.20-1.00); Monocytes % (A) 9.2 %; NRBC Per 100 WBC 0 /100 WBCS (0.0-0.0); Neutrophils # (A) 8.37 X 10*3/uL (1.80-7.70); Neutrophils % (A) 65.3 %; Platelet Count 251 X 10*3/uL (140-440); RBC 3.25 X 10*6/uL (4.40-5.60); WBC 12.83 X 10*3/uL (4.50-10.00)
--- NOTE | 2023-01-16 11:04 | P.PN ---
Subjective Patient is seen in follow-up for acute kidney injury on chronic kidney disease. Renal function improving. Sodium level trending down with D5W. Tolerating thickened diet. Failed swallow eval. Resting in bed. More awake today. Blood pressure stable. Has a Astorga catheter. Nonoliguric. Vital signs are stable. General: No acute distress. HEENT: Head exam is unremarkable. LUNGS: No audible rhonchi or wheezes. HEART: Rate and Rhythm are regular. ABDOMEN: Nontender. EXTREMITITES: Trace edema. Objective - Vital Signs Vital signs: Vital Signs Temp 98.7 F 01/16/23 07:25 Pulse 53 L 01/16/23 07:25 Resp 16 01/16/23 07:25 BP 138/69 01/16/23 07:25 Pulse Ox 95 01/16/23 07:25 FiO2 Intake & Output 01/15/23 01/16/23 01/16/23 18:59 06:59 18:59 Output Total 800 900 Balance -800 -900 Output: Urine 800 900 Other: Voiding Method Indwelling Catheter Indwelling Catheter # Bowel Movements 1 1 - Labs CBC & Chem 7: 01/16/23 05:41 01/16/23 05:41 Labs: Abnormal Lab Results - Last 24 Hours (Table) 01/16/23 01/16/23 Range/Units 05:41 05:41 WBC 12.83 H (4.50-10.00) X 10*3/uL RBC 3.25 L (4.40-5.60) X 10*6/uL Hgb 9.7 L (13.0-17.0) g/dL Hct 32.9 L (39.6-50.0) % MCV 101.2 H (80.0-97.0) fL MCHC 29.5 L (32.0-37.0) g/dL RDW 16.0 H (11.5-14.5) % Immature Gran # 0.40 H (0.00-0.04) X 10*3/uL Neutrophils # 8.37 H (1.80-7.70) X 10*3/uL Monocytes # 1.18 H (0.20-1.00) X 10*3/uL Chloride 112 H (98-107) mmol/L BUN 32 H (9-20) mg/dL Glucose 140 H (74-99) mg/dL Assessment and Plan Plan: Assessment: 1. Acute kidney injury mostly prerenal secondary to hypotension and hypovolemia. Creatinine 2.94 on admission is 1.2 today. Trace protein on UA. No hydronephrosis noted on kidney ultrasound. 2. Chronic kidney disease stage IIIa with baseline creatinine near 1.3 secondary to ALLERGIC interstitial nephritis and cardiorenal syndrome. 3. Hyperkalemia secondary to acute kidney injury and lisinopril. Resolved. 4. Hypernatremia from lack of oral water intake. Improving with D5W. 5. Hypertension with chronic kidney disease. Stable. 6. Hypermagnesemia secondary to acute kidney injury and magnesium supplementa tion. Magnesium supplementation discontinued. Magnesium level trending down. On Flomax. 7. Urinary retention. Has Astorga catheter. Plan: Maintain D5W - decrease rate to 70 mL an hour. Encouraged oral intake, including free water. Repeat labs in the morning.
[2023-01-16 11:53] LABS: ALT 137 U/L (4-49); AST 115 U/L (17-59)
--- NOTE | 2023-01-16 15:28 | P.PN ---
Subjective Progress Note Date: 01/16/23 Patient is a 72-year-old male with a known history of chronic CHF with preserved ejection fraction, chronic kidney disease hypertension, hyperlipidemia, hypothyroidism and dysphagia who is currently at [facility] was sent to the ER due to generalized weakness and abnormal lab work-up showing increased BUN and cre atinine level. Patient was also given a dose of ceftriaxone [facility] Otherwise patient was afebrile on admission. Tmax 99.4. 93% on room air on admission. Patient very lethargic, could not provide any history. Also has underlying dementia. Chest x-ray showed no acute cardiopulmonary process/disease. Laboratory data showed WBC 8.4 hemoglobin 10.9 and platelets 412 Sodium 143 potassium 5.5 chloride 108 bicarb is 24 BUN 98 and creatinine 2.94. Blood sugar is 119 AST 228 ALT 134 and alk phos 193 and albumin 3.0. Urinalysis showed large leukocyte esterase and nitrite negative. Repeat laboratory data this morning showed sodium level 148 potassium 5.6 and chloride 117 BUN and creatinine with slight improvement to 73 and 2.02. Magnesium 3.3. /. Patient seen and examined. White count 12.83, hemoglobin 9.7, MCV 101.2, sodium 143, potassium 4.4, chloride 08/30/2011, BUN and 32, creatinine 1.2, REVIEW OF SYSTEMS: CONSTITUTIONAL: No fever, no malaise,. CARDIOVASCULAR: No chest pain, no palpitations, no syncope. PULMONARY: No shortness of breath, no cough, GASTROINTESTINAL: No diarrhea, no nausea, no vomiting, no abdominal pain. NEUROLOGICAL: No headaches, no weakness, PHYSICAL EXAMINATION: GENERAL: The patient is alert and oriented x3, not in any acute distress. Well developed, well nourished. HEENT: Pupils are round and equally reacting to light. EOMI. No scleral icterus. No conjunctival pallor. Normocephalic, atraumatic. No pharyngeal erythema. No thyromegaly. CARDIOVASCULAR: S1 and S2 present. No murmurs, rubs, or gallops. PULMONARY: Chest is clear to auscultation, no wheezing or crackles. ABDOMEN: Soft, nontender, nondistended, normoactive bowel sounds. No palpable organomegaly. MUSCULOSKELETAL: No joint swelling or deformity. EXTREMITIES: No cyanosis, clubbing, or pedal edema. NEUROLOGICAL: Gross neurological examination did not reveal any focal deficits. SKIN: No rashes. Assessment and plan Generalized weakness and altered mental status possible metabolic encephalopat hy. Acute on chronic kidney disease stage III with baseline creatinine 1.3 and creatinine was 2.94 on admission. Likely due to prerenal and possible ATN. History of interstitial nephritis and cardiorenal syndrome Hyperkalemia secondary to acute kidney injury Hypernatremia due to dehydration and volume depletion Elevated liver enzymes Hypertension Chronic CHF with preserved ejection fraction History of DVT status post IVC filter placement History of CVA with mild right hemiparesis Hypothyroidism Depression COPD not in exacerbation Monitor vital signs Monitor CBC Monitor CMP Ultrasound abdomen due to elevated liver enzymes. Lisinopril is on hold due to hyperkalemia. Continue with aspirin, statins, levothyroxine and Depakote. Continue IV fluids Follow-up in nephrology recommendations DVT prophylaxis: Objective - Vital Signs Vital signs: Vital Signs Temp 98.7 F 01/16/23 07:25 Pulse 53 L 01/16/23 07:25 Resp 16 01/16/23 07:25 BP 138/69 01/16/23 07:25 Pulse Ox 95 01/16/23 07:25 FiO2 Intake & Output 01/15/23 01/16/23 01/16/23 18:59 06:59 18:59 Output Total 800 900 Balance -800 -900 Output: Urine 800 900 Other: Voiding Method Indwelling Catheter Indwelling Catheter # Bowel Movements 1 1 - Labs CBC & Chem 7: 01/16/23 05:41 01/16/23 05:41 Labs: Abnormal Lab Results - Last 24 Hours (Table) 01/16/23 01/16/23 Range/Units 05:41 05:41 WBC 12.83 H (4.50-10.00) X 10*3/uL RBC 3.25 L (4.40-5.60) X 10*6/uL Hgb 9.7 L (13.0-17.0) g/dL Hct 32.9 L (39.6-50.0) % MCV 101.2 H (80.0-97.0) fL MCHC 29.5 L (32.0-37.0) g/dL RDW 16.0 H (11.5-14.5) % Immature Gran # 0.40 H (0.00-0.04) X 10*3/uL Neutrophils # 8.37 H (1.80-7.70) X 10*3/uL Monocytes # 1.18 H (0.20-1.00) X 10*3/uL Chloride 112 H (98-107) mmol/L BUN 32 H (9-20) mg/dL Glucose 140 H (74-99) mg/dL
[2023-01-16] MEDS: MELATONIN 3 MG TABLET PO SCH (20:15)
[2023-01-16] MEDS: ATORVASTATIN 20 MG TAB PO SCH (20:15)
[2023-01-17] MEDS: DEXTROSE 5% IN WATER 1,000 ML IV SCH (04:07)
[2023-01-17] MEDS: LEVOTHYROXINE 88 MCG TAB PO SCH (06:23)
[2023-01-17 06:25] LABS: ALT 174 U/L (4-49); AST 157 U/L (17-59); African American GFR (CKD) >90 (>60 ml/min/1.73 sqM); Albumin 2.6 g/dL (3.5-5.0); Albumin/Globulin Ratio 0.7; Alkaline Phosphatase 137 U/L (38-126); Anion Gap 4 mmol/L; Blood Urea Nitrogen 21 mg/dL (9-20); Calcium 8.7 mg/dL (8.4-10.2); Carbon Dioxide 26 mmol/L (22-30); Chloride 108 mmol/L (98-107); Globulin 3.5 g/dL; Glucose 130 mg/dL (74-99); Magnesium 2.1 mg/dL (1.6-2.3); Non-African American GFR(CKD) 78 (>60 ml/min/1.73 sqM); Potassium 4.7 mmol/L (3.5-5.1); Sodium 138 mmol/L (137-145); Total Bilirubin 0.4 mg/dL (0.2-1.3); Total Protein 6.1 g/dL (6.3-8.2)
[2023-01-17] MEDS: SYMBICORT 160-4.5 MCG INHALER INHALATION SCH ×2 (08:38→20:18)
[2023-01-17] MEDS: ASPIRIN 81 MG PO SCH (08:43)
[2023-01-17] MEDS: DIVALPROEX ER 500 MG TAB.ER.24H PO SCH ×2 (08:43→20:43)
[2023-01-17] MEDS: FAMOTIDINE 20 MG TAB PO SCH (08:43)
[2023-01-17] MEDS: ESCITALOPRAM 5 MG TAB PO SCH (08:43)
[2023-01-17] MEDS: HEPARIN SODIUM,PORCINE/PF 5,000 UNIT/0.5 ML SYRINGE SQ SCH ×2 (08:43→15:38)
[2023-01-17] MEDS: BRIMONIDINE TARTRATE 0.2% DROPS 5 ML BTL BOTH EYES SCH ×2 (08:43→20:42)
[2023-01-17] MEDS: allopurinoL 100 MG TAB PO SCH (08:43)
[2023-01-17] MEDS: TAMSULOSIN 0.4 MG CAP.ER.24H PO SCH (08:43)
[2023-01-17 09:16] LABS: HCT 33.8 % (39.6-50.0); MCH 30.1 pg (27.0-32.0); MCHC 29.6 g/dL (32.0-37.0); MCV 101.8 fL (80.0-97.0); Mean Platelet Volume 12.2 fL (9.5-12.2); NRBC Per 100 WBC 0 /100 WBCS (0.0-0.0); Platelet Count 263 X 10*3/uL (140-440); RBC 3.32 X 10*6/uL (4.40-5.60); RDW 15.9 % (11.5-14.5); WBC 12.92 X 10*3/uL (4.50-10.00)
--- NOTE | 2023-01-17 11:15 | P.PN ---
Subjective Patient is seen in follow-up for acute kidney injury on chronic kidney disease. Renal function improving. Sodium level also normal today. Currently on D5W at 70 mL an hour. Tolerating thickened diet. Resting in bed. Blood pressure stable. Has a Astorga catheter. Nonoliguric. Hemodynamically stable. Vital signs are stable. General: No acute distress. HEENT: Head exam is unremarkable. LUNGS: No audible rhonchi or wheezes. HEART: Rate and Rhythm are regular. ABDOMEN: Nontender. EXTREMITITES: Trace edema. Objective - Vital Signs Vital signs: Vital Signs Temp 98.6 F 01/17/23 07:15 Pulse 48 L 01/17/23 08:00 Resp 20 01/17/23 08:00 BP 127/65 01/17/23 07:15 Pulse Ox 97 01/17/23 07:15 FiO2 Intake & Output 01/16/23 01/17/23 01/17/23 18:59 06:59 18:59 Output Total 700 1400 250 Balance -700 -1400 -250 Output: Urine 700 1400 250 Other: Voiding Method Indwelling Catheter Indwelling Catheter Indwelling Catheter # Voids 1,000 # Bowel Movements 1 1 - Labs CBC & Chem 7: 01/17/23 05:40 01/17/23 05:40 Labs: Abnormal Lab Results - Last 24 Hours (Table) 01/16/23 01/17/23 01/17/23 Range/Units 05:41 05:40 05:40 WBC 12.92 H (4.50-10.00) X 10*3/uL RBC 3.32 L (4.40-5.60) X 10*6/uL Hgb 10.0 L (13.0-17.0) g/dL Hct 33.8 L (39.6-50.0) % MCV 101.8 H (80.0-97.0) fL MCHC 29.6 L (32.0-37.0) g/dL RDW 15.9 H (11.5-14.5) % Chloride 108 H (98-107) mmol/L BUN 21 H (9-20) mg/dL Glucose 130 H (74-99) mg/dL AST 115 H 157 H (17-59) U/L ALT 137 H 174 H (4-49) U/L Alkaline Phosphatase 137 H (38-126) U/L Total Protein 6.1 L (6.3-8.2) g/dL Albumin 2.6 L (3.5-5.0) g/dL Assessment and Plan Plan: Assessment: 1. Acute kidney injury mostly prerenal secondary to hypotension and hypovolemi a. Creatinine 2.94 on admission is 0.98 today. Trace protein on UA. No hydronephrosis noted on kidney ultrasound. 2. Chronic kidney disease stage IIIa with baseline creatinine near 1.3 secondary to ALLERGIC interstitial nephritis and cardiorenal syndrome. 3. Hyperkalemia secondary to acute kidney injury and lisinopril. Resolved. 4. Hypernatremia from lack of oral water intake. Improved with D5W. 5. Hypertension with chronic kidney disease. Stable. 6. Hypermagnesemia secondary to acute kidney injury and magnesium supplementation. Magnesium supplementation discontinued. Magnesium level trending down. 7. Urinary retention. Has Astorga catheter. On Flomax. Plan: Hep-Lock IV fluids. Encouraged oral intake. Trial of void today.
--- NOTE | 2023-01-17 12:47 | P.PN ---
Subjective Patient is a 72-year-old male with a known history of chronic CHF with preserved ejection fraction, chronic kidney disease hypertension, hyperlipidemia, hypothyroidism and dysphagia who is currently at [facility] was sent to the ER due to generalized weakness and abnormal lab work-up showing increased BUN and creatinine level. Patient was also given a dose of ceftriaxone due to fever and [facility]ension at residential.. Otherwise patient was afebrile on admission. Tmax 99.4. 93% on room air on admission. Patient very lethargic, could not provide any history. Also has underlying dementia. Chest x-ray showed no acute cardiopulmonary process/disease. Laboratory data showed WBC 8.4 hemoglobin 10.9 and platelets 412 Sodium 143 potassium 5.5 chloride 108 bicarb is 24 BUN 98 and creatinine 2.94. Blood sugar is 119 AST 228 ALT 134 and alk phos 193 and albumin 3.0. Urinalysis showed large leukocyte esterase and nitrite negative. Repeat laboratory data this morning showed sodium level 148 potassium 5.6 and chloride 117 BUN and creatinine with slight improvement to 73 and 2.02. Magnesium 3.3. /. Patient seen and examined. White count 12.83, hemoglobin 9.7, MCV 101.2, sodium 143, potassium 4.4, chloride 08/30/2011, BUN and 32, creatinine 1.2, 01/17. Patient seen and examined. Currently tolerating diet. WBC 12.92, hemoglobin 10, sodium 138, potassium 4.7, chloride 108, BUN and 21, creatinine 0.98 REVIEW OF SYSTEMS: CONSTITUTIONAL: No fever, no malaise,. CARDIOVASCULAR: No chest pain, no palpitations, no syncope. PULMONARY: No shortness of breath, no cough, GASTROINTESTINAL: No diarrhea, no nausea, no vomiting, no abdominal pain. NEUROLOGICAL: No headaches, no weakness, PHYSICAL EXAMINATION: GENERAL: The patient is alert and oriented x3, not in any acute distress. Well developed, well nourished. HEENT: Pupils are round and equally reacting to light. EOMI. No scleral icterus. No conjunctival pallor. Normocephalic, atraumatic. No pharyngeal erythema. No thyromegaly. CARDIOVASCULAR: S1 and S2 present. No murmurs, rubs, or gallops. PULMONARY: Chest is clear to auscultation, no wheezing or crackles. ABDOMEN: Soft, nontender, nondistended, normoactive bowel sounds. No palpable organomegaly. MUSCULOSKELETAL: No joint swelling or deformity. EXTREMITIES: No cyanosis, clubbing, or pedal edema. NEUROLOGICAL: Gross neurological examination did not reveal any focal deficits. SKIN: No rashes. Assessment and plan Generalized weakness and altered mental status possible metabolic encephalopathy. Acute on chronic kidney disease stage III with baseline creatinine 1.3 and crea tinine was 2.94 on admission. Likely due to prerenal and possible ATN. History of interstitial nephritis and cardiorenal syndrome Hyperkalemia secondary to acute kidney injury Hypernatremia due to dehydration and volume depletion Elevated liver enzymes Hypertension Chronic CHF with preserved ejection fraction History of DVT status post IVC filter placement History of CVA with mild right hemiparesis Hypothyroidism Depression COPD not in exacerbation Monitor vital signs Monitor CBC Monitor CMP Ultrasound abdomen due to elevated liver enzymes. Lisinopril is on hold due to hyperkalemia. Continue with aspirin, statins, levothyroxine and Depakote. DC fluids Astorga discontinued Trial of void ordered for today Follow-up in nephrology recommendations DVT prophylaxis: Objective - Vital Signs Vital signs: Vital Signs Temp 98.6 F 01/17/23 07:15 Pulse 48 L 01/17/23 08:00 Resp 20 01/17/23 08:00 BP 127/65 01/17/23 07:15 Pulse Ox 97 01/17/23 07:15 FiO2 Intake & Output 01/16/23 01/17/23 01/17/23 18:59 06:59 18:59 Output Total 700 1400 250 Balance -700 -1400 -250 Output: Urine 700 1400 250 Post Void Residual 0 Other: Voiding Method Indwelling Catheter Indwelling Catheter Indwelling Catheter # Voids 1,000 1 # Bowel Movements 1 1 - Labs CBC & Chem 7: 01/17/23 05:40 01/17/23 05:40 Labs: Abnormal Lab Results - Last 24 Hours (Table) 01/17/23 01/17/23 Range/Units 05:40 05:40 WBC 12.92 H (4.50-10.00) X 10*3/uL RBC 3.32 L (4.40-5.60) X 10*6/uL Hgb 10.0 L (13.0-17.0) g/dL Hct 33.8 L (39.6-50.0) % MCV 101.8 H (80.0-97.0) fL MCHC 29.6 L (32.0-37.0) g/dL RDW 15.9 H (11.5-14.5) % Chloride 108 H (98-107) mmol/L BUN 21 H (9-20) mg/dL Glucose 130 H (74-99) mg/dL AST 157 H (17-59) U/L ALT 174 H (4-49) U/L Alkaline Phosphatase 137 H (38-126) U/L Total Protein 6.1 L (6.3-8.2) g/dL Albumin 2.6 L (3.5-5.0) g/dL
[2023-01-17] MEDS: ACETAMINOPHEN TAB 325 MG TAB PO PRN ×2 (13:04→20:43)
[2023-01-17] MEDS: ATORVASTATIN 20 MG TAB PO SCH (20:42)
[2023-01-17] MEDS: MELATONIN 3 MG TABLET PO SCH (20:43)
[2023-01-18] MEDS: HEPARIN SODIUM,PORCINE/PF 5,000 UNIT/0.5 ML SYRINGE SQ SCH ×4 (00:16→23:48)
[2023-01-18] MEDS: ACETAMINOPHEN TAB 325 MG TAB PO PRN (04:53)
[2023-01-18] MEDS: IPRATROPIUM-ALBUTEROL 3 ML NEB INHALATION SCH ×4 (05:39→19:50)
[2023-01-18] MEDS: LEVOTHYROXINE 88 MCG TAB PO SCH (06:29)
--- NOTE | 2023-01-18 08:02 | XR ---
EXAMINATION TYPE: XR chest 1V portable DATE OF EXAM: 01/18/2023 Comparison: 01/13/2023 Clinical History: 72-year-old male wheezing Findings: Narrowing of the subacromial space on the right suggests chronic full-thickness rotator cuff tear. He art mildly enlarged. Diffuse interstitial densities. No sizable pleural effusion on the frontal view or georgie consolidation. Impression: 1. Mild cardiomegaly. 2. Mild interstitial densities could reflect bronchitis, asthma, or mild pulmonary vascular congestio n. Clinically correlate.
[2023-01-18] MEDS: DIVALPROEX ER 500 MG TAB.ER.24H PO SCH ×2 (08:31→20:14)
[2023-01-18] MEDS: TAMSULOSIN 0.4 MG CAP.ER.24H PO SCH (08:31)
[2023-01-18] MEDS: allopurinoL 100 MG TAB PO SCH (08:31)
[2023-01-18] MEDS: ASPIRIN 81 MG PO SCH (08:31)
[2023-01-18] MEDS: FAMOTIDINE 20 MG TAB PO SCH (08:31)
[2023-01-18] MEDS: BRIMONIDINE TARTRATE 0.2% DROPS 5 ML BTL BOTH EYES SCH ×2 (08:32→20:14)
[2023-01-18] MEDS: ESCITALOPRAM 5 MG TAB PO SCH (08:32)
[2023-01-18] MEDS: SYMBICORT 160-4.5 MCG INHALER INHALATION SCH ×2 (09:03→19:51)
--- NOTE | 2023-01-18 12:55 | P.PN ---
Subjective Patient is seen in follow-up for acute kidney injury on chronic kidney disease. Renal function improving. Tolerating thickened diet. Resting in bed. Blood pressure stable. Nonoliguric. Hemodynamically stable. Serum creatinine 0.9 on 01/17/2023 Astorga catheter was removed. Objective - Vital Signs Vital signs: Vital Signs Temp 98.4 F 01/18/23 07:07 Pulse 80 01/18/23 12:15 Resp 18 01/18/23 07:07 BP 121/69 01/18/23 07:07 Pulse Ox 99 01/18/23 07:07 FiO2 Intake & Output 01/17/23 01/18/23 01/18/23 18:59 06:59 18:59 Intake Total 240 Output Total 250 Balance -10 Intake: Oral 240 Output: Urine 250 Post Void Residual 0 Other: Voiding Method Indwelling Catheter Diaper Diaper # Voids 1 2 1 # Bowel Movements 1 2 1 - Exam Patient is awake, comfortable, no acute distress Examination of the heart S1 and S2 Examination of the lungs bilateral breath sounds are heard Abdomen is soft nontender Examination of lower extremities shows trace edema 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 Acute kidney injury mostly prerenal secondary to hypotension and hypovolemia. Creatinine 2.94 on admission is 0.98 on 01/17/2023. Trace protein on UA. No hydronephrosis noted on kidney ultrasound. 2. Chronic kidney disease stage IIIa with baseline creatinine near 1.3 secondary to ALLERGIC interstitial nephritis and cardiorenal syndrome. 3. Hyperkalemia secondary to acute kidney injury and lisinopril. Resolved. 4. Hypernatremia from lack of oral water intake. Improved with D5W. 5. Hypertension with chronic kidney disease. Stable. 6. Hypermagnesemia secondary to acute kidney injury and magnesium supplementation. Magnesium supplementation discontinued. Magnesium level trending down. 7. Urinary retention. Status post removal of Astorga catheter. On Flomax. Plan: Continue off of IV fluids Monitor for urine retention with periodic bladder scans.
[2023-01-18] MEDS: HYDROcodone/APAP 5-325MG 1 EACH TAB PO PRN ×2 (12:57→18:45)
--- NOTE | 2023-01-18 14:52 | P.PN ---
Subjective Progress Note Date: 01/18/23 Patient is a 72-year-old male with a known history of chronic CHF with preserved ejection fraction, chronic kidney disease hypertension, hyperlipidemia, hypothyroidism and dysphagia who is currently at [facility] was sent to the ER due to generalized weakness and abnormal lab work-up showing increased BUN and cre atinine level. Patient was also given a dose of ceftriaxone due to fever and hypotension at retirement.. Otherwise patient was afebrile on admission. Tmax 99.4. 93% on room air on admission. Patient very lethargic, could not provide any history. Also has underlying dementia. Chest x-ray showed no acute cardiopulmonary process/disease. Laboratory data showed WBC 8.4 hemoglobin 10.9 and platelets 412 Sodium 143 potassium 5.5 chloride 108 bicarb is 24 BUN 98 and creatinine 2.94. Blood sugar is 119 AST 228 ALT 134 and alk phos 193 and albumin 3.0. Urinalysis showed large leukocyte esterase and nitrite negative. Repeat laboratory data this morning showed sodium level 148 potassium 5.6 and chloride 117 BUN and creatinine with slight improvement to 73 and 2.02. Magnesium 3.3. 01/16. Patient seen and examined. White count 12.83, hemoglobin 9.7, MCV 101.2, sodium 143, potassium 4.4, chloride 08/30/2011, BUN and 32, creatinine 1.2, 01/17. Patient seen and examined. Currently tolerating diet. WBC 12.92, hemoglobin 10, sodium 138, potassium 4.7, chloride 108, BUN and 21, creatinine 0.98 01/18. Patient seen and examined. Complaining of congestion this morning. Slightly short of breath. REVIEW OF SYSTEMS: CONSTITUTIONAL: No fever, no malaise,. CARDIOVASCULAR: No chest pain, no palpitations, no syncope. PULMONARY: As mentioned above GASTROINTESTINAL: No diarrhea, no nausea, no vomiting, no abdominal pain. NEUROLOGICAL: No headaches, no weakness, PHYSICAL EXAMINATION: GENERAL: The patient is alert and oriented x3, not in any acute distress. Well developed, well nourished. HEENT: Pupils are round and equally reacting to light. EOMI. No scleral icterus. No conjunctival pallor. Normocephalic, atraumatic. No pharyngeal erythema. No thyromegaly. CARDIOVASCULAR: S1 and S2 present. No murmurs, rubs, or gallops. PULMONARY: Coarse breath sounds bilaterally, no wheezing or crackles. ABDOMEN: Soft, nontender, nondistended, normoactive bowel sounds. No palpable organomegaly. MUSCULOSKELETAL: No joint swelling or deformity. EXTREMITIES: No cyanosis, clubbing, or pedal edema. NEUROLOGICAL: Gross neurological examination did not reveal any focal deficits. SKIN: No rashes. Assessment and plan Generalized weakness and altered mental status possible metabolic encephalopathy. Acute on chronic kidney disease stage III with baseline creatinine 1.3 and creatinine was 2.94 on admission. Likely due to prerenal and possible ATN. History of interstitial nephritis and cardiorenal syndrome Hyperkalemia secondary to acute kidney injury Hypernatremia due to dehydration and volume depletion Elevated liver enzymes Hypertension Chronic CHF with preserved ejection fraction History of DVT status post IVC filter placement History of CVA with mild right hemiparesis Hypothyroidism Depression COPD not in exacerbation Monitor vital signs Monitor CBC Monitor CMP Ordered chest x-ray Ordered Mucinex Continue breathing treatments Ultrasound abdomen due to elevated liver enzymes. Lisinopril is on hold due to hyperkalemia. Continue with aspirin, statins, levothyroxine and Depakote. Follow-up in nephrology recommendations DVT prophylaxis: Objective - Vital Signs Vital signs: Vital Signs Temp 98.7 F 01/18/23 13:10 Pulse 61 01/18/23 13:10 Resp 16 01/18/23 13:10 BP 113/62 01/18/23 13:10 Pulse Ox 97 01/18/23 13:10 FiO2 Intake & Output 01/17/23 01/18/23 01/18/23 18:59 06:59 18:59 Intake Total 240 Output Total 250 Balance -10 Intake: Oral 240 Output: Urine 250 Post Void Residual 0 Other: Voiding Method Indwelling Catheter Diaper Diaper # Voids 1 2 1 # Bowel Movements 1 2 1 - Labs CBC & Chem 7: 01/17/23 05:40 01/17/23 05:40
[2023-01-18] MEDS: MELATONIN 3 MG TABLET PO SCH (20:14)
[2023-01-18] MEDS: ATORVASTATIN 20 MG TAB PO SCH (20:14)
[2023-01-18] MEDS: guaiFENesin-DM 600/30MG 1 EACH TAB.ER.12H PO SCH (20:14)
[2023-01-19] MEDS: HYDROcodone/APAP 5-325MG 1 EACH TAB PO PRN ×3 (04:05→21:39)
[2023-01-19] MEDS: LEVOTHYROXINE 88 MCG TAB PO SCH (06:45)
[2023-01-19] MEDS: IPRATROPIUM-ALBUTEROL 3 ML NEB INHALATION SCH ×4 (07:57→20:56)
[2023-01-19] MEDS: SYMBICORT 160-4.5 MCG INHALER INHALATION SCH ×2 (07:57→20:56)
[2023-01-19] MEDS: ESCITALOPRAM 5 MG TAB PO SCH (08:25)
[2023-01-19] MEDS: ASPIRIN 81 MG PO SCH (08:25)
[2023-01-19] MEDS: guaiFENesin-DM 600/30MG 1 EACH TAB.ER.12H PO SCH ×2 (08:25→20:29)
[2023-01-19] MEDS: FAMOTIDINE 20 MG TAB PO SCH (08:25)
[2023-01-19] MEDS: allopurinoL 100 MG TAB PO SCH (08:25)
[2023-01-19] MEDS: TAMSULOSIN 0.4 MG CAP.ER.24H PO SCH (08:25)
[2023-01-19] MEDS: DIVALPROEX ER 500 MG TAB.ER.24H PO SCH ×2 (08:26→20:29)
[2023-01-19] MEDS: BRIMONIDINE TARTRATE 0.2% DROPS 5 ML BTL BOTH EYES SCH ×2 (08:26→20:29)
[2023-01-19] MEDS: HEPARIN SODIUM,PORCINE/PF 5,000 UNIT/0.5 ML SYRINGE SQ SCH ×3 (08:26→23:28)
--- NOTE | 2023-01-19 12:08 | P.PN ---
Subjective Patient is seen in follow-up for acute kidney injury on chronic kidney disease. Renal function improving. Tolerating thickened diet. Resting in bed. Blood pressure stable. Nonoliguric. Hemodynamically stable. Serum creatinine 0.9 on 01/17/2023 Astorga catheter was removed. 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 Acute kidney injury mostly prerenal secondary to hypotension and hypovolemia. Creatinine 2.94 on admission is 0.98 on 01/17/2023. Trace protein on UA. No hydronephrosis noted on kidney ultrasound. 2. Chronic kidney disease stage IIIa with baseline creatinine near 1.3 secondary to ALLERGIC interstitial nephritis and cardiorenal syndrome. 3. Hyperkalemia secondary to acute kidney injury and lisinopril. Resolved. 4. Hypernatremia from lack of oral water intake. Improved with D5W. 5. Hypertension with chronic kidney disease. Stable. 6. Hypermagnesemia secondary to acute kidney injury and magnesium supplementation. Magnesium supplementation discontinued. Magnesium level trending down. 7. Urinary retention. Status post removal of Astorga catheter. On Flomax. Plan: Continue off of IV fluids Monitor for urine retention with periodic bladder scans. Check labs
[2023-01-19 13:00] LABS: African American GFR (CKD) >90 (>60 ml/min/1.73 sqM); Anion Gap 3 mmol/L; Blood Urea Nitrogen 16 mg/dL (9-20); Calcium 8.9 mg/dL (8.4-10.2); Carbon Dioxide 27 mmol/L (22-30); Chloride 102 mmol/L (98-107); Glucose 134 mg/dL (74-99); Non-African American GFR(CKD) 84 (>60 ml/min/1.73 sqM); Sodium 132 mmol/L (137-145)
--- NOTE | 2023-01-19 14:08 | P.PN ---
Subjective Progress Note Date: 01/19/23 Patient is a 72-year-old male with a known history of chronic CHF with preserved ejection fraction, chronic kidney disease hypertension, hyperlipidemia, hypothyroidism and dysphagia who is currently at [facility] was sent to the ER due to generalized weakness and abnormal lab work-up showing increased BUN and cre atinine level. Patient was also given a dose of ceftriaxone due to fever and hypotension at intermediate.. Otherwise patient was afebrile on admission. Tmax 99.4. 93% on room air on admission. Patient very lethargic, could not provide any history. Also has underlying dementia. Chest x-ray showed no acute cardiopulmonary process/disease. Laboratory data showed WBC 8.4 hemoglobin 10.9 and platelets 412 Sodium 143 potassium 5.5 chloride 108 bicarb is 24 BUN 98 and creatinine 2.94. Blood sugar is 119 AST 228 ALT 134 and alk phos 193 and albumin 3.0. Urinalysis showed large leukocyte esterase and nitrite negative. Repeat laboratory data this morning showed sodium level 148 potassium 5.6 and chloride 117 BUN and creatinine with slight improvement to 73 and 2.02. Magnesium 3.3. 01/16. Patient seen and examined. White count 12.83, hemoglobin 9.7, MCV 101.2, sodium 143, potassium 4.4, chloride 08/30/2011, BUN and 32, creatinine 1.2, 01/17. Patient seen and examined. Currently tolerating diet. WBC 12.92, hemoglobin 10, sodium 138, potassium 4.7, chloride 108, BUN and 21, creatinine 0.98 01/18. Patient seen and examined. Complaining of congestion this morning. Slightly short of breath. 01/19. Patient seen and examined. Complaining of lethargy and weakness. Cough has improved REVIEW OF SYSTEMS: CONSTITUTIONAL: No fever, no malaise,. CARDIOVASCULAR: No chest pain, no palpitations, no syncope. PULMONARY: As mentioned above GASTROINTESTINAL: No diarrhea, no nausea, no vomiting, no abdominal pain. NEUROLOGICAL: No headaches, no weakness, PHYSICAL EXAMINATION: GENERAL: The patient is alert and oriented x3, not in any acute distress. Well d eveloped, well nourished. HEENT: Pupils are round and equally reacting to light. EOMI. No scleral icterus. No conjunctival pallor. Normocephalic, atraumatic. No pharyngeal erythema. No thyromegaly. CARDIOVASCULAR: S1 and S2 present. No murmurs, rubs, or gallops. PULMONARY: Coarse breath sounds bilaterally, no wheezing or crackles. ABDOMEN: Soft, nontender, nondistended, normoactive bowel sounds. No palpable organomegaly. MUSCULOSKELETAL: No joint swelling or deformity. EXTREMITIES: No cyanosis, clubbing, or pedal edema. NEUROLOGICAL: Gross neurological examination did not reveal any focal deficits. SKIN: No rashes. Assessment and plan Generalized weakness and altered mental status possible metabolic encephalopathy. Acute on chronic kidney disease stage III with baseline creatinine 1.3 and creatinine was 2.94 on admission. Likely due to prerenal and possible ATN. History of interstitial nephritis and cardiorenal syndrome Hyperkalemia secondary to acute kidney injury Hypernatremia due to dehydration and volume depletion Elevated liver enzymes Hypertension Chronic CHF with preserved ejection fraction History of DVT status post IVC filter placement History of CVA with mild right hemiparesis Hypothyroidism Depression COPD not in exacerbation Monitor vital signs Monitor CBC Monitor CMP Continue Mucinex Continue breathing treatments Ultrasound abdomen due to elevated liver enzymes. Lisinopril is on hold due to hyperkalemia. Continue with aspirin, statins, levothyroxine and Depakote. Follow-up in nephrology recommendations DVT prophylaxis: Objective - Vital Signs Vital signs: Vital Signs Temp 98.6 F 01/19/23 11:20 Pulse 68 01/19/23 11:41 Resp 18 01/19/23 11:20 BP 127/67 01/19/23 11:20 Pulse Ox 94 L 01/19/23 11:20 FiO2 Intake & Output 01/18/23 01/19/23 01/19/23 18:59 06:59 18:59 Other: Voiding Method Diaper Diaper # Voids 1 4 3 # Bowel Movements 1 - Labs CBC & Chem 7: 01/17/23 05:40 01/19/23 12:18 Labs: Abnormal Lab Results - Last 24 Hours (Table) 01/19/23 Range/Units 12:18 Sodium 132 L (137-145) mmol/L Glucose 134 H (74-99) mg/dL
[2023-01-19 15:15] VITALS: BMI 34.6
[2023-01-19] MEDS: MELATONIN 3 MG TABLET PO SCH (20:29)
[2023-01-19] MEDS: ATORVASTATIN 20 MG TAB PO SCH (20:29)
[2023-01-20] MEDS: HYDROcodone/APAP 5-325MG 1 EACH TAB PO PRN ×4 (04:33→23:26)
[2023-01-20] MEDS: LEVOTHYROXINE 88 MCG TAB PO SCH (05:46)
[2023-01-20] MEDS: LACTULOSE 20 GM/30 ML CUP PO PRN (08:19)
[2023-01-20] MEDS: DIVALPROEX ER 500 MG TAB.ER.24H PO SCH ×2 (08:20→20:22)
[2023-01-20] MEDS: guaiFENesin-DM 600/30MG 1 EACH TAB.ER.12H PO SCH ×2 (08:20→20:22)
[2023-01-20] MEDS: ACETAMINOPHEN TAB 325 MG TAB PO PRN ×2 (08:20→16:27)
[2023-01-20] MEDS: FAMOTIDINE 20 MG TAB PO SCH (08:20)
[2023-01-20] MEDS: ESCITALOPRAM 5 MG TAB PO SCH (08:20)
[2023-01-20] MEDS: allopurinoL 100 MG TAB PO SCH (08:20)
[2023-01-20] MEDS: ASPIRIN 81 MG PO SCH (08:20)
[2023-01-20] MEDS: HEPARIN SODIUM,PORCINE/PF 5,000 UNIT/0.5 ML SYRINGE SQ SCH ×3 (08:21→23:28)
[2023-01-20] MEDS: TAMSULOSIN 0.4 MG CAP.ER.24H PO SCH (08:23)
[2023-01-20] MEDS: BRIMONIDINE TARTRATE 0.2% DROPS 5 ML BTL BOTH EYES SCH ×2 (08:24→20:23)
[2023-01-20] MEDS: SYMBICORT 160-4.5 MCG INHALER INHALATION SCH ×2 (08:55→20:12)
[2023-01-20] MEDS: IPRATROPIUM-ALBUTEROL 3 ML NEB INHALATION SCH ×4 (08:55→20:12)
[2023-01-20 10:48] LABS: HCT 33.3 % (39.6-50.0); HGB 10.1 g/dL (13.0-17.0); MCH 30.4 pg (27.0-32.0); MCHC 30.3 g/dL (32.0-37.0); MCV 100.3 fL (80.0-97.0); Mean Platelet Volume 11.4 fL (9.5-12.2); NRBC Per 100 WBC 0 /100 WBCS (0.0-0.0); Platelet Count 388 X 10*3/uL (140-440); RBC 3.32 X 10*6/uL (4.40-5.60); RDW 15.3 % (11.5-14.5); WBC 11.96 X 10*3/uL (4.50-10.00)
[2023-01-20 11:07] LABS: African American GFR (CKD) 77.9 (60.0-200.0); Albumin 2.9 g/dL (3.8-4.9); Albumin/Globulin Ratio 0.74 (1.60-3.17); Anion Gap 8.3 mmol/L (10.00-18.00); BUN/Creat Ratio 16.27 Ratio (12.00-20.00); Blood Urea Nitrogen 17.9 mg/dL (9.0-27.0); Calcium 9.7 mg/dL (8.7-10.3); Carbon Dioxide 24.7 mmol/L (20.0-27.5); Globulin 3.9 g/dL (1.6-3.3); Non-African American GFR(CKD) 67.2 (60.0-200.0); Potassium 5.5 mmol/L (3.5-5.5); Total Bilirubin 0.3 mg/dL (0.30-1.20); Total Protein 6.8 g/dL (6.2-8.2)
--- NOTE | 2023-01-20 11:23 | P.PN ---
Subjective Patient is seen in follow-up for acute kidney injury on chronic kidney disease. Renal function improving. Tolerating thickened diet. Resting in bed. Blood pressure stable. Nonoliguric. Hemodynamically stable. Serum creatinine 0.9 on 01/17/2023 Astorga catheter was removed. No complaints Objective - Vital Signs Vital signs: Vital Signs Temp 98.5 F 01/20/23 07:12 Pulse 74 01/20/23 09:10 Resp 16 01/20/23 07:12 BP 113/62 01/20/23 07:12 Pulse Ox 97 01/20/23 08:55 FiO2 Intake & Output 01/19/23 01/20/23 01/20/23 18:59 06:59 18:59 Intake Total 10 Balance 10 Weight 106.367 kg Intake: IV 10 Invasive Line 4 10 Other: Voiding Method Diaper Diaper # Voids 2 4 2 - Exam Patient is awake, comfortable, no acute distress Examination of the heart S1 and S2 Examination of the lungs bilateral breath sounds are heard Abdomen is soft nontender Examination of lower extremities shows 1+ edema [employer]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 - Labs CBC & Chem 7: 01/20/23 06:20 01/20/23 06:20 Labs: Abnormal Lab Results - Last 24 Hours (Table) 01/19/23 01/20/23 01/20/23 Range/Units 12:18 06:20 06:20 WBC 11.96 H (4.50-10.00) X 10*3/uL RBC 3.32 L (4.40-5.60) X 10*6/uL Hgb 10.1 L (13.0-17.0) g/dL Hct 33.3 L (39.6-50.0) % MCV 100.3 H (80.0-97.0) fL MCHC 30.3 L (32.0-37.0) g/dL RDW 15.3 H (11.5-14.5) % Sodium 132 L 133 L (137-145) mmol/L Anion Gap 8.30 L (10.00-18.00) mmol/L Glucose 134 H (74-99) mg/dL AST 51 H (14-35) U/L ALT 111 H (10-49) U/L Albumin 2.9 L (3.8-4.9) g/dL Globulin 3.9 H (1.6-3.3) g/dL Albumin/Globulin Ratio 0.74 L (1.60-3.17) g/dL Assessment and Plan Assessment: 1. Acute kidney injury mostly prerenal secondary to hypotension and hypovol emia. Creatinine 2.94 on admission is 1.1 today Trace protein on UA. No hydronephrosis noted on kidney ultrasound. 2. Chronic kidney disease stage IIIa with baseline creatinine near 1.3 secondary to ALLERGIC interstitial nephritis and cardiorenal syndrome. 3. Hyperkalemia secondary to acute kidney injury and lisinopril. Resolved. Potassium mildly elevated at 5.5 today. Add loop diuretics and check bladder scan and rule out urine retention. 4. Hypernatremia from lack of oral water intake. Improved with D5W. 5. Hypertension with chronic kidney disease. Stable. 6. Hypermagnesemia secondary to acute kidney injury and magnesium supplementation. Magnesium supplementation discontinued. Magnesium level trending down. 7. Urinary retention. Status post removal of Astorga catheter. On Flomax. Plan: Continue off of IV fluids Add low-dose loop diuretics Check bladder scan and rule out urine retention as potassium is mildly elevated today.
[2023-01-20] MEDS: FUROSEMIDE 40 MG TAB PO SCH (16:27)
[2023-01-20] MEDS ORDERED: SODIUM ZIRCONIUM CYCLOSILICATE 10 GM PACKET PO ONE (19:34)
[2023-01-20] MEDS: ATORVASTATIN 20 MG TAB PO SCH (20:22)
[2023-01-20] MEDS: MELATONIN 3 MG TABLET PO SCH (20:22)
[2023-01-21] MEDS: LEVOTHYROXINE 88 MCG TAB PO SCH (05:44)
[2023-01-21] MEDS: HYDROcodone/APAP 5-325MG 1 EACH TAB PO PRN ×3 (05:47→21:47)
[2023-01-21] MEDS: SYMBICORT 160-4.5 MCG INHALER INHALATION SCH ×2 (07:46→20:32)
[2023-01-21] MEDS: IPRATROPIUM-ALBUTEROL 3 ML NEB INHALATION SCH ×4 (07:46→20:32)
[2023-01-21 08:43] LABS: Basophils % (A) 0.8 %; Eosinophils # (A) 0.41 X 10*3/uL (0.04-0.35); Eosinophils % (A) 3.3 %; HCT 33.2 % (39.6-50.0); Immature Grans, Automated 3.5 %; Lymphocytes # (A) 4.04 X 10*3/uL (0.90-5.00); Lymphocytes % (A) 32.3 %; MCH 30.2 pg (27.0-32.0); MCHC 30.1 g/dL (32.0-37.0); MCV 100.3 fL (80.0-97.0); Mean Platelet Volume 11.4 fL (9.5-12.2); Monocytes # (A) 1.01 X 10*3/uL (0.20-1.00); Monocytes % (A) 8.1 %; NRBC Per 100 WBC 0 /100 WBCS (0.0-0.0); Neutrophils # (A) 6.52 X 10*3/uL (1.80-7.70); Platelet Count 451 X 10*3/uL (140-440); RBC 3.31 X 10*6/uL (4.40-5.60); RDW 15.4 % (11.5-14.5); WBC 12.52 X 10*3/uL (4.50-10.00)
[2023-01-21] MEDS: HEPARIN SODIUM,PORCINE/PF 5,000 UNIT/0.5 ML SYRINGE SQ SCH ×3 (08:51→21:49)
[2023-01-21] MEDS: TAMSULOSIN 0.4 MG CAP.ER.24H PO SCH (08:51)
[2023-01-21] MEDS: ASPIRIN 81 MG PO SCH (08:51)
[2023-01-21] MEDS: ESCITALOPRAM 5 MG TAB PO SCH (08:51)
[2023-01-21] MEDS: allopurinoL 100 MG TAB PO SCH (08:51)
[2023-01-21] MEDS: FAMOTIDINE 20 MG TAB PO SCH (08:51)
[2023-01-21] MEDS: DIVALPROEX ER 500 MG TAB.ER.24H PO SCH ×2 (08:51→20:52)
[2023-01-21] MEDS: FUROSEMIDE 40 MG TAB PO SCH (08:51)
[2023-01-21] MEDS: BRIMONIDINE TARTRATE 0.2% DROPS 5 ML BTL BOTH EYES SCH ×2 (08:52→20:52)
[2023-01-21] MEDS: guaiFENesin-DM 600/30MG 1 EACH TAB.ER.12H PO SCH ×2 (08:52→20:52)
[2023-01-21 09:13] LABS: African American GFR (CKD) 72.3 (60.0-200.0); Anion Gap 6.6 mmol/L (10.00-18.00); BUN/Creat Ratio 15.9 Ratio (12.00-20.00); Blood Urea Nitrogen 18.6 mg/dL (9.0-27.0); Calcium 9.8 mg/dL (8.7-10.3); Carbon Dioxide 28.2 mmol/L (20.0-27.5); Non-African American GFR(CKD) 62.4 (60.0-200.0); Potassium 6.1 mmol/L (3.5-5.5)
[2023-01-21] MEDS ORDERED: SODIUM ZIRCONIUM CYCLOSILICATE 10 GM PACKET PO ONE (09:31)
[2023-01-21] MEDS ORDERED: INSULIN REGULAR 100 UNIT/ML VIAL (IV) IV ONE (09:32)
[2023-01-21] MEDS ORDERED: DEXTROSE 50% SYRINGE 50 ML IVP STA (09:32)
--- NOTE | 2023-01-21 12:11 | P.PN ---
Subjective Patient is seen in follow-up for acute kidney injury on chronic kidney disease. Renal function improving. Tolerating thickened diet. Resting in bed. Blood pressure stable. Nonoliguric. Hemodynamically stable. Serum potassium was up to 6.1 today. Creatinine at 1.2 mg/dL. Patient has an external catheter. Bladder scan showed 181 mL No complaints. Blood sugar at 97 mg/dL No GI bleed noted Blood pressure is not low. Objective - Vital Signs Vital signs: Vital Signs Temp 97.7 F 01/21/23 07:35 Pulse 60 01/21/23 11:41 Resp 18 01/21/23 07:35 BP 130/87 01/21/23 07:35 Pulse Ox 94 L 01/21/23 07:46 FiO2 21 01/21/23 07:46 Intake & Output 01/20/23 01/21/23 01/21/23 18:59 06:59 18:59 Intake Total 250 Output Total 950 186 Balance 250 -950 -186 Intake: IV 10 Invasive Line 4 10 Oral 240 Output: Urine 950 Post Void Residual 186 Other: Voiding Method Diaper Diaper Bedside Commode External Catheter Diaper # Voids 1 # Bowel Movements 0 - Exam Patient is awake, comfortable, no acute distress Examination of the heart S1 and S2 Examination of the lungs bilateral breath sounds are heard Abdomen is soft nontender Examination of lower extremities shows 1+ edema [employer]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 - Labs CBC & Chem 7: 01/21/23 05:27 01/21/23 05:27 Labs: Abnormal Lab Results - Last 24 Hours (Table) 01/21/23 01/21/23 Range/Units 05:27 05:27 WBC 12.52 H (4.50-10.00) X 10*3/uL RBC 3.31 L (4.40-5.60) X 10*6/uL Hgb 10.0 L (13.0-17.0) g/dL Hct 33.2 L (39.6-50.0) % MCV 100.3 H (80.0-97.0) fL MCHC 30.1 L (32.0-37.0) g/dL RDW 15.4 H (11.5-14.5) % Plt Count 451 H (140-440) X 10*3/uL Immature Gran # 0.44 H (0.00-0.04) X 10*3/uL Monocytes # 1.01 H (0.20-1.00) X 10*3/uL Eosinophils # 0.41 H (0.04-0.35) X 10*3/uL Potassium 6.1 H* (3.5-5.5) mmol/L Carbon Dioxide 28.2 H (20.0-27.5) mmol/L Anion Gap 6.60 L (10.00-18.00) mmol/L Assessment and Plan Assessment: 1. Acute kidney injury mostly prerenal secondary to hypotension and hypovolemia. Creatinine 2.94 on admission is 1.2 today Trace protein on UA. No hydronephrosis noted on kidney ultrasound. 2. Chronic kidney disease stage IIIa with baseline creatinine near 1.3 secondary to ALLERGIC interstitial nephritis and cardiorenal syndrome. 3. Hyperkalemia secondary to acute kidney injury and lisinopril. Resolved. Potassium is elevated again at 6.1. Patient has been started on loop diuretics. Bladder scan did not show significant urine retention. Patient will be maintained on low potassium diet and continue with loop diuretics as well. 4. Hypernatremia from lack of oral water intake. Improved with D5W. 5. Hypertension with chronic kidney disease. Stable. 6. Hypermagnesemia secondary to acute kidney injury and magnesium supplementation. Magnesium supplementation discontinued. Magnesium level trending down. 7. Urinary retention. Status post removal of Astorga catheter. On Flomax. Plan: Continue off of IV fluids Continue to monitor bladder scans Treat hyperkalemia with insulin and D50 as well as lokelma. Maintain low potassium diet.
[2023-01-21 15:18] LABS: African American GFR (CKD) 64 (>60 ml/min/1.73 sqM); Anion Gap 6 mmol/L; Blood Urea Nitrogen 21 mg/dL (9-20); Calcium 9.2 mg/dL (8.4-10.2); Carbon Dioxide 29 mmol/L (22-30); Chloride 99 mmol/L (98-107); Glucose 114 mg/dL (74-99); Non-African American GFR(CKD) 55 (>60 ml/min/1.73 sqM); Potassium 4.7 mmol/L (3.5-5.1); Sodium 134 mmol/L (137-145)
[2023-01-21] MEDS: MELATONIN 3 MG TABLET PO SCH (20:52)
[2023-01-21] MEDS: ATORVASTATIN 20 MG TAB PO SCH (20:52)
[2023-01-22] MEDS: HYDROcodone/APAP 5-325MG 1 EACH TAB PO PRN ×2 (03:06→16:44)
[2023-01-22] MEDS: LEVOTHYROXINE 88 MCG TAB PO SCH (06:15)
[2023-01-22] MEDS: TAMSULOSIN 0.4 MG CAP.ER.24H PO SCH (06:15)
[2023-01-22] MEDS: SYMBICORT 160-4.5 MCG INHALER INHALATION SCH (07:37)
[2023-01-22] MEDS: IPRATROPIUM-ALBUTEROL 3 ML NEB INHALATION SCH ×3 (07:37→16:42)
[2023-01-22 08:23] VITALS: RESP 17
[2023-01-22] MEDS: allopurinoL 100 MG TAB PO SCH (09:28)
[2023-01-22] MEDS: HEPARIN SODIUM,PORCINE/PF 5,000 UNIT/0.5 ML SYRINGE SQ SCH ×2 (09:28→16:44)
[2023-01-22] MEDS: ASPIRIN 81 MG PO SCH (09:28)
[2023-01-22] MEDS: DIVALPROEX ER 500 MG TAB.ER.24H PO SCH (09:28)
[2023-01-22] MEDS: ESCITALOPRAM 5 MG TAB PO SCH (09:28)
[2023-01-22] MEDS: guaiFENesin-DM 600/30MG 1 EACH TAB.ER.12H PO SCH (09:29)
[2023-01-22] MEDS: FUROSEMIDE 40 MG TAB PO SCH (09:29)
[2023-01-22] MEDS: FAMOTIDINE 20 MG TAB PO SCH (09:29)
[2023-01-22] MEDS: BRIMONIDINE TARTRATE 0.2% DROPS 5 ML BTL BOTH EYES SCH (09:32)
[2023-01-22 10:50] LABS: Basophils # (A) 0.09 X 10*3/uL (0.00-0.10); Basophils % (A) 0.7 %; Eosinophils # (A) 0.41 X 10*3/uL (0.04-0.35); Eosinophils % (A) 3.2 %; HCT 33.2 % (39.6-50.0); HGB 10.2 g/dL (13.0-17.0); Immature Grans, Automated 2.1 %; Lymphocytes % (A) 29.3 %; MCH 30.1 pg (27.0-32.0); MCHC 30.7 g/dL (32.0-37.0); MCV 97.9 fL (80.0-97.0); Mean Platelet Volume 11.5 fL (9.5-12.2); Monocytes # (A) 1.07 X 10*3/uL (0.20-1.00); Monocytes % (A) 8.3 %; NRBC Per 100 WBC 0 /100 WBCS (0.0-0.0); Neutrophils # (A) 7.32 X 10*3/uL (1.80-7.70); Neutrophils % (A) 56.4 %; Platelet Count 458 X 10*3/uL (140-440); RBC 3.39 X 10*6/uL (4.40-5.60); RDW 15.6 % (11.5-14.5); WBC 12.96 X 10*3/uL (4.50-10.00)
[2023-01-22 10:59] LABS: African American GFR (CKD) 62.5 (60.0-200.0); Anion Gap 8.2 mmol/L (10.00-18.00); BUN/Creat Ratio 17.05 Ratio (12.00-20.00); Blood Urea Nitrogen 22.5 mg/dL (9.0-27.0); Calcium 9.5 mg/dL (8.7-10.3); Carbon Dioxide 25.9 mmol/L (20.0-27.5); Non-African American GFR(CKD) 53.9 (60.0-200.0); Potassium 5.1 mmol/L (3.5-5.5)
--- NOTE | 2023-01-22 14:08 | P.PN ---
Subjective Progress Note Date: 01/20/23 Patient is a 72-year-old male with a known history of chronic CHF with preserved ejection fraction, chronic kidney disease hypertension, hyperlipidemia, hypothyroidism and dysphagia who is currently at [facility] was sent to the ER due to generalized weakness and abnormal lab work-up showing increased BUN and cr eatinine level. Patient was also given a dose of ceftriaxone due to fever and hypotension at snf.. Otherwise patient was afebrile on admission. Tmax 99.4. 93% on room air on admission. Patient very lethargic, could not provide any history. Also has underlying dementia. Chest x-ray showed no acute cardiopulmonary process/disease. Laboratory data showed WBC 8.4 hemoglobin 10.9 and platelets 412 Sodium 143 potassium 5.5 chloride 108 bicarb is 24 BUN 98 and creatinine 2.94. Blood sugar is 119 AST 228 ALT 134 and alk phos 193 and albumin 3.0. Urinalysis showed large leukocyte esterase and nitrite negative. Repeat laboratory data this morning showed sodium level 148 potassium 5.6 and chloride 117 BUN and creatinine with slight improvement to 73 and 2.02. Magnesium 3.3. 01/16. Patient seen and examined. White count 12.83, hemoglobin 9.7, MCV 101.2, sodium 143, potassium 4.4, chloride 08/30/2011, BUN and 32, creatinine 1.2, 01/17. Patient seen and examined. Currently tolerating diet. WBC 12.92, hemoglobin 10, sodium 138, potassium 4.7, chloride 108, BUN and 21, creatinine 0.98 01/18. Patient seen and examined. Complaining of congestion this morning. Slightly short of breath. 01/19. Patient seen and examined. Complaining of lethargy and weakness. Cough has improved 01/20/2023 Patient is currently lying in bed. Awake alert and oriented 2-3. No complaints of chest pain or shortness of breath. No cough or sputum production. The patient has been afebrile. Astorga catheter has been discontinued. Nephrology is on board. Laboratory data showed sodium 133 potassium 5.5 chloride 100 bicarb is 24.7 BUN 17.9 and creatinine 1.1, WBC 11.9 hemoglobin 10.1 and platelets 388. REVIEW OF SYSTEMS: CONSTITUTIONAL: No fever, no malaise,. CARDIOVASCULAR: No chest pain, no palpitations, no syncope. PULMONARY: As mentioned above GASTROINTESTINAL: No diarrhea, no nausea, no vomiting, no abdominal pain. NEUROLOGICAL: No headaches, no weakness, PHYSICAL EXAMINATION: GENERAL: The patient is alert and oriented x3, not in any acute distress. Well developed, well nourished. HEENT: Pupils are round and equally reacting to light. EOMI. No scleral icterus. No conjunctival pallor. Normocephalic, atraumatic. No pharyngeal erythema. No thyromegaly. CARDIOVASCULAR: S1 and S2 present. No murmurs, rubs, or gallops. PULMONARY: Coarse breath sounds bilaterally, no wheezing or crackles. ABDOMEN: Soft, nontender, nondistended, normoactive bowel sounds. No palpable organomegaly. MUSCULOSKELETAL: No joint swelling or deformity. EXTREMITIES: No cyanosis, clubbing, or pedal edema. NEUROLOGICAL: Gross neurological examination did not reveal any focal deficits. SKIN: No rashes. Assessment and plan Generalized weakness and altered mental status possible metabolic encephalopathy. Improved and the patient is back to baseline. Acute on chronic kidney disease stage III with baseline creatinine 1.3 and creatinine was 2.94 on admission. Likely due to prerenal and possible ATN. History of interstitial nephritis and cardiorenal syndrome Hyperkalemia secondary to acute kidney injury Hypernatremia due to dehydration and volume depletion Elevated liver enzymes Hypertension Chronic CHF with preserved ejection fraction History of DVT status post IVC filter placement History of CVA with mild right hemiparesis Hypothyroidism Depression COPD not in exacerbation Monitor vital signs Monitor CBC Monitor CMP Continue Mucinex Continue breathing treatments Lisinopril is on hold due to hyperkalemia. Continue with aspirin, statins, levothyroxine and Depakote. Follow-up in nephrology recommendations Objective - Vital Signs Vital signs: Vital Signs Temp 98.6 F 01/20/23 18:43 Pulse 72 01/20/23 20:21 Resp 16 01/20/23 18:43 BP 112/71 01/20/23 18:43 Pulse Ox 96 01/20/23 18:43 FiO2 Intake & Output 01/20/23 01/20/23 01/21/23 06:59 18:59 06:59 Intake Total 250 Balance 250 Intake: IV 10 Invasive Line 4 10 Oral 240 Other: Voiding Method Diaper Diaper # Voids 4 1 # Bowel Movements 0 - Labs CBC & Chem 7: 01/22/23 07:08 01/22/23 07:08 Labs: Abnormal Lab Results - Last 24 Hours (Table) 01/20/23 01/20/23 Range/Units 06:20 06:20 WBC 11.96 H (4.50-10.00) X 10*3/uL RBC 3.32 L (4.40-5.60) X 10*6/uL Hgb 10.1 L (13.0-17.0) g/dL Hct 33.3 L (39.6-50.0) % MCV 100.3 H (80.0-97.0) fL MCHC 30.3 L (32.0-37.0) g/dL RDW 15.3 H (11.5-14.5) % Sodium 133 L (135-145) mmol/L Anion Gap 8.30 L (10.00-18.00) mmol/L AST 51 H (14-35) U/L ALT 111 H (10-49) U/L Albumin 2.9 L (3.8-4.9) g/dL Globulin 3.9 H (1.6-3.3) g/dL Albumin/Globulin Ratio 0.74 L (1.60-3.17) g/dL
--- NOTE | 2023-01-22 14:10 | P.PN ---
Subjective Progress Note Date: 01/21/23 Patient is a 72-year-old male with a known history of chronic CHF with preserved ejection fraction, chronic kidney disease hypertension, hyperlipidemia, hypothyroidism and dysphagia who is currently at [facility] was sent to the ER due to generalized weakness and abnormal lab work-up showing increased BUN and cr eatinine level. Patient was also given a dose of ceftriaxone due to fever and hypotension at shelter.. Otherwise patient was afebrile on admission. Tmax 99.4. 93% on room air on admission. Patient very lethargic, could not provide any history. Also has underlying dementia. Chest x-ray showed no acute cardiopulmonary process/disease. Laboratory data showed WBC 8.4 hemoglobin 10.9 and platelets 412 Sodium 143 potassium 5.5 chloride 108 bicarb is 24 BUN 98 and creatinine 2.94. Blood sugar is 119 AST 228 ALT 134 and alk phos 193 and albumin 3.0. Urinalysis showed large leukocyte esterase and nitrite negative. Repeat laboratory data this morning showed sodium level 148 potassium 5.6 and chloride 117 BUN and creatinine with slight improvement to 73 and 2.02. Magnesium 3.3. 01/16. Patient seen and examined. White count 12.83, hemoglobin 9.7, MCV 101.2, sodium 143, potassium 4.4, chloride 08/30/2011, BUN and 32, creatinine 1.2, 01/17. Patient seen and examined. Currently tolerating diet. WBC 12.92, hemoglobin 10, sodium 138, potassium 4.7, chloride 108, BUN and 21, creatinine 0.98 01/18. Patient seen and examined. Complaining of congestion this morning. Slightly short of breath. 01/19. Patient seen and examined. Complaining of lethargy and weakness. Cough has improved 01/20/2023 Patient is currently lying in bed. Awake alert and oriented 2-3. No complaints of chest pain or shortness of breath. No cough or sputum production. The patient has been afebrile. Astorga catheter has been discontinued. Nephrology is on board. Laboratory data showed sodium 133 potassium 5.5 chloride 100 bicarb is 24.7 BUN 17.9 and creatinine 1.1, WBC 11.9 hemoglobin 10.1 and platelets 388. 01/21/2023 Patient is resting in bed. Awake alert and oriented. No commerce of cough is from production. Patient has been afebrile. No nausea vomiting or abdominal pain. Patient was started on Lasix. Potassium level increased to 6.1 today. Creatinine is 1.2 otherwise. Bladder scan showed 1 81 mL. Blood pressure is stable otherwise. Laboratory data showed sodium 134 potassium 6.1 chloride 100 bicarb is 28.2 BUN 18.6 and creatinine 1.2. Repeat laboratory data was done this afternoon showed BUN 21 and creatinine 1.3 and potassium level improved to 4.7. REVIEW OF SYSTEMS: CONSTITUTIONAL: No fever, no malaise,. CARDIOVASCULAR: No chest pain, no palpitations, no syncope. PULMONARY: As mentioned above GASTROINTESTINAL: No diarrhea, no nausea, no vomiting, no abdominal pain. NEUROLOGICAL: No headaches, no weakness, PHYSICAL EXAMINATION: GENERAL: The patient is alert and oriented x3, not in any acute distress. Well developed, well nourished. HEENT: Pupils are round and equally reacting to light. EOMI. No scleral icterus. No conjunctival pallor. Normocephalic, atraumatic. No pharyngeal erythema. No thyromegaly. CARDIOVASCULAR: S1 and S2 present. No murmurs, rubs, or gallops. PULMONARY: Coarse breath sounds bilaterally, no wheezing or crackles. ABDOMEN: Soft, nontender, nondistended, normoactive bowel sounds. No palpable organomegaly. MUSCULOSKELETAL: No joint swelling or deformity. EXTREMITIES: No cyanosis, clubbing, or pedal edema. NEUROLOGICAL: Gross neurological examination did not reveal any focal deficits. SKIN: No rashes. Assessment and plan Generalized weakness and altered mental status possible metabolic encephalopathy. Improved and the patient is back to baseline. Acute on chronic kidney disease stage III with baseline creatinine 1.3 and creatinine was 2.94 on admission. Likely due to prerenal and possible ATN. History of interstitial nephritis and cardiorenal syndrome Hyperkalemia secondary to acute kidney injury Hypernatremia due to dehydration and volume depletion Elevated liver enzymes Hypertension Chronic CHF with preserved ejection fraction History of DVT status post IVC filter placement History of CVA with mild right hemiparesis Hypothyroidism Depression COPD not in exacerbation Monitor vital signs Monitor CBC Monitor CMP Continue Mucinex Continue breathing treatments Lisinopril is on hold due to hyperkalemia. Patient was given insulin/D50. Follow-up repeat potassium level. Continue with aspirin, statins, levothyroxine and Depakote. Follow-up in nephrology recommendations Objective - Vital Signs Vital signs: Vital Signs Temp 98.3 F 01/21/23 12:40 Pulse 48 L 01/21/23 15:21 Resp 18 01/21/23 12:40 BP 135/70 01/21/23 12:40 Pulse Ox 94 L 01/21/23 12:40 FiO2 21 01/21/23 07:46 Intake & Output 01/20/23 01/21/23 01/21/23 18:59 06:59 18:59 Intake Total 250 Output Total 950 186 Balance 250 -950 -186 Intake: IV 10 Invasive Line 4 10 Oral 240 Output: Urine 950 Post Void Residual 186 Other: Voiding Method Diaper Diaper Bedside Commode External Catheter Diaper External Catheter # Voids 1 # Bowel Movements 0 - Labs CBC & Chem 7: 01/22/23 07:08 01/22/23 07:08 Labs: Abnormal Lab Results - Last 24 Hours (Table) 01/21/23 01/21/23 01/21/23 Range/Units 05:27 05:27 14:47 WBC 12.52 H (4.50-10.00) X 10*3/uL RBC 3.31 L (4.40-5.60) X 10*6/uL Hgb 10.0 L (13.0-17.0) g/dL Hct 33.2 L (39.6-50.0) % MCV 100.3 H (80.0-97.0) fL MCHC 30.1 L (32.0-37.0) g/dL RDW 15.4 H (11.5-14.5) % Plt Count 451 H (140-440) X 10*3/uL Immature Gran # 0.44 H (0.00-0.04) X 10*3/uL Monocytes # 1.01 H (0.20-1.00) X 10*3/uL Eosinophils # 0.41 H (0.04-0.35) X 10*3/uL Sodium 134 L (137-145) mmol/L Potassium 6.1 H* (3.5-5.5) mmol/L Carbon Dioxide 28.2 H (20.0-27.5) mmol/L Anion Gap 6.60 L (10.00-18.00) mmol/L BUN 21 H (9-20) mg/dL Creatinine 1.30 H (0.66-1.25) mg/dL Glucose 114 H (74-99) mg/dL
--- NOTE | 2023-01-22 14:15 | P.DS ---
Providers Date of admission: 01/13/23 20:42 Expected date of discharge: 01/22/23 Attending physician: Hao Silva Consults: 01/13/23 20:39 Consult Physician Routine Consulting Provider: Robbi Novoa Consult Reason/Comments: acute renal failure Do you want consulting provider notified?: Yes Primary care physician: China Kaur, DO Hospital Course: Discharge diagnosis Generalized weakness and altered mental status possible metabolic encephalopathy. Improved and the patient is back to baseline. Acute on chronic kidney disease stage III with baseline creatinine 1.3 and creatinine was 2.94 on admission. Likely due to prerenal and possible ATN. History of interstitial nephritis and cardiorenal syndrome Hyperkalemia secondary to acute kidney injury resolved now. Hypernatremia due to dehydration and volume depletion Elevated liver enzymes Hypertension Chronic CHF with preserved ejection fraction History of DVT status post IVC filter placement History of CVA with mild right hemiparesis Hypothyroidism Depression COPD not in exacerbation Hospital course Patient is a 72-year-old male with a known history of chronic CHF with preserved ejection fraction, chronic kidney disease hypertension, hyperlipidemia, hypothyroidism and dysphagia who is currently at [facility] was sent to the ER due to generalized weakness and abnormal lab work-up showing increased BUN and cr eatinine level. Patient was also given a dose of ceft[facility] Otherwise patient was afebrile on admission. Tmax 99.4. 93% on room air on admission. Patient very lethargic, could not provide any history. Also has underlying dementia. Chest x-ray showed no acute cardiopulmonary process/disease. Laboratory data showed WBC 8.4 hemoglobin 10.9 and platelets 412 Sodium 143 potassium 5.5 chloride 108 bicarb is 24 BUN 98 and creatinine 2.94. Blood sugar is 119 AST 228 ALT 134 and alk phos 193 and albumin 3.0. Urinalysis showed large leukocyte esterase and nitrite negative. Repeat laboratory data this morning showed sodium level 148 potassium 5.6 and chloride 117 BUN and creatinine with slight improvement to 73 and 2.02. Magnesium 3.3. 01/16. Patient seen and examined. White count 12.83, hemoglobin 9.7, MCV 101.2, sodium 143, potassium 4.4, chloride 08/30/2011, BUN and 32, creatinine 1.2, 01/17. Patient seen and examined. Currently tolerating diet. WBC 12.92, hemoglobin 10, sodium 138, potassium 4.7, chloride 108, BUN and 21, creatinine 0.98 01/18. Patient seen and examined. Complaining of congestion this morning. Slightly short of breath. 01/19. Patient seen and examined. Complaining of lethargy and weakness. Cough has improved 01/20/2023 Patient is currently lying in bed. Awake alert and oriented 2-3. No complaints of chest pain or shortness of breath. No cough or sputum production. The patient has been afebrile. Astorga catheter has been discontinued. Nephrology is on board. Laboratory data showed sodium 133 potassium 5.5 chloride 100 bicarb is 24.7 BUN 17.9 and creatinine 1.1, WBC 11.9 hemoglobin 10.1 and platelets 388. 01/21/2023 Patient is resting in bed. Awake alert and oriented. No complaints of cough is from production. Patient has been afebrile. No nausea vomiting or abdominal pain. Patient was started on Lasix. Potassium level increased to 6.1 today. Creatinine is 1.2 otherwise. Bladder scan showed 1 81 mL. Blood pressure is stable otherwise. Laboratory data showed sodium 134 potassium 6.1 chloride 100 bicarb is 28.2 BUN 18.6 and creatinine 1.2. Repeat laboratory data was done this afternoon showed BUN 21 and creatinine 1.3 and potassium level improved to 4.7. 01/22/2023 Patient is currently resting in the bed. Awake alert and oriented. No complaints of chest pain or shortness of breath. No fever no chills. No cough or sputum production. Mentation is at baseline. Laboratory data showed sodium 133 potassium 5.1 chloride 99 bicarb is 25.9 BUN 22.5 and creatinine 1.3. Patient will be continued on Lasix at rehab. Follow bladder scan intermittently for any retention. Astorga catheter is off. Patient is being discharged back to [facility]. Follow with primary care physician in the next 3-5 days. Repeat labs next week. PHYSICAL EXAMINATION: GENERAL: The patient is alert and oriented x3, not in any acute distress. Well developed, well nourished. HEENT: Pupils are round and equally reacting to light. EOMI. No scleral icterus. No conjunctival pallor. Normocephalic, atraumatic. No pharyngeal erythema. No thyromegaly. CARDIOVASCULAR: S1 and S2 present. No murmurs, rubs, or gallops. PULMONARY: Coarse breath sounds bilaterally, no wheezing or crackles. ABDOMEN: Soft, nontender, nondistended, normoactive bowel sounds. No palpable organomegaly. MUSCULOSKELETAL: No joint swelling or deformity. EXTREMITIES: No cyanosis, clubbing, or pedal edema. NEUROLOGICAL: Gross neurological examination did not reveal any focal deficits. SKIN: No rashes. Vital Signs 01/22/23 01/22/23 01/22/23 07:00 07:38 07:49 Temperature 98.6 F Pulse Rate 60 64 Pulse Rate [ 60 Pulse Oximetery ] Respiratory 17 Rate Blood Pressure 123/53 [Right Arm] O2 Sat by Pulse 93 L 93 L Oximetry Fraction of 21 Inspired Oxygen (FIO2) 01/22/23 01/22/23 10:47 10:58 Temperature Pulse Rate 68 64 Pulse Rate [ Pulse Oximetery ] Respiratory Rate Blood Pressure [Right Arm] O2 Sat by Pulse Oximetry Fraction of Inspired Oxygen (FIO2) Total time taken greater than 35 minutes including 18 minutes for counseling and coordination of care. Patient Condition at Discharge: Fair Plan - Discharge Summary New Discharge Prescriptions: No Action Divalproex ER [Depakote ER] 500 mg PO BID Atorvastatin [Lipitor] 20 mg PO HS@2000 Aspirin [[place] Aspirin EC] 81 mg PO DAILY oxyCODONE-APAP 7.5-325MG [Percocet 7.5-325 mg] 1 tab PO Q6HR Albuterol Sulfate [Albuterol Sulfate Hfa] 2 puff PO RT-Q6H PRN PRN Reason: Shortness Of Breath Mirtazapine [Remeron] 15 mg PO HS Magnesium Oxide [Magox 400] 400 mg PO DAILY Ergocalciferol (Vitamin D2) [Drisdol (50,000 Iu)] 1,250 mcg PO QMONTHLY Alfuzosin HCl [Alfuzosin HCl ER] 10 mg PO DAILY Acetaminophen [Tylenol 8 Hour] 650 mg PO Q6H PRN PRN Reason: Pain Melatonin 3 mg PO HS Budesonide/Formoterol Fumarate [Symbicort 160-4.5 Mcg Inhaler] 2 puff INHALATION RT-BID Brimonidine Tartrate [Alphagan P 0.1% Ophth Soln] 1 drops BOTH EYES BID Cholecalciferol [Vitamin D3 (25 Mcg = 1000 Iu)] 75 mcg PO DAILY lisinopriL [Zestril] 5 mg PO DAILY Levothyroxine Sodium [Levoxyl] 88 mcg PO DAILY Escitalopram [Lexapro] 5 mg PO DAILY Lactulose 10 gm PO DAILY Ferrous Sulfate [Iron (65 MG Elemental)] 325 mg PO HS allopurinoL [Zyloprim] 100 mg PO DAILY Cetirizine HCl [Zyrtec] 10 mg PO DAILY Discharge Medication List Aspirin [[place] Aspirin EC] 81 mg PO DAILY 12/24/18 [History] Atorvastatin [Lipitor] 20 mg PO HS@199912/24/18 [History] Divalproex ER [Depakote ER] 500 mg PO BID 12/24/18 [History] Acetaminophen [Tylenol 8 Hour] 650 mg PO Q6H PRN 01/13/23 [History] Albuterol Sulfate [Albuterol Sulfate Hfa] 2 puff PO RT-Q6H PRN 01/13/23 [History] Alfuzosin HCl [Alfuzosin HCl ER] 10 mg PO DAILY 01/13/23 [History] Brimonidine Tartrate [Alphagan P 0.1% Oph Soln] 1 drops BOTH EYES BID 01/13/23 [History] Budesonide/Formoterol Fumarate [Symbicort 160-4.5 Mcg Inhaler] 2 puff INHALATION RT-BID 01/13/23 [History] Cetirizine HCl [Zyrtec] 10 mg PO DAILY 01/13/23 [History] Cholecalciferol [Vitamin D3 (25 Mcg = 1000 Iu)] 75 mcg PO DAILY 01/13/23 [History] Ergocalciferol (Vitamin D2) [Drisdol (50,000 Iu)] 1,250 mcg PO QMONTHLY 01/13/23 [History] Escitalopram [Lexapro] 5 mg PO DAILY 01/13/23 [History] Ferrous Sulfate [Iron (65 MG Elemental)] 325 mg PO HS 01/13/23 [History] Lactulose 10 gm PO DAILY 01/13/23 [History] Levothyroxine Sodium [Levoxyl] 88 mcg PO DAILY 01/13/23 [History] Magnesium Oxide [Magox 400] 400 mg PO DAILY 01/13/23 [History] Melatonin 3 mg PO HS 01/13/23 [History] Mirtazapine [Remeron] 15 mg PO HS 01/13/23 [History] allopurinoL [Zyloprim] 100 mg PO DAILY 01/13/23 [History] lisinopriL [Zestril] 5 mg PO DAILY 01/13/23 [History] oxyCODONE-APAP 7.5-325MG [Percocet 7.5-325 mg] 1 tab PO Q6HR 01/13/23 [History] Follow up Appointment(s)/Referral(s): China Kaur DO [Primary Care Provider] - 1-2 days Activity/Diet/Wound Care/Special Instructions: monitor for urine retention at [facility].
[2023-01-22 15:05] VITALS: BP 107/59; TEMP 98.2
[2023-01-22 16:44] VITALS: PULSE 64
== END 2023-01-22 17:00 | DRG 682 ==
LOC: EC 14:23 → 5NMEDONC 20:42 → EEVIPCON 20:42 → 5NMEDONC 21:54
PROVIDERS: ADMIT Hospitalist; ATTEND Hospitalist
DX: N17.9 Acute kidney failure, unspecified (principal); G93.41 Metabolic encephalopathy; E87.0 Hyperosmolality and hypernatremia; I13.0 Hypertensive heart and chronic kidney disease with heart failure and stage 1 through stage 4 chronic kidney disease, or unspecified chronic kidney disease; I69.351 Hemiplegia and hemiparesis following cerebral infarction affecting right dominant side; E87.1 Hypo-osmolality and hyponatremia; I50.32 Chronic diastolic (congestive) heart failure; F03.93 Unspecified dementia, unspecified severity, with mood disturbance; E83.41 Hypermagnesemia; D63.1 Anemia in chronic kidney disease; I95.9 Hypotension, unspecified; I48.91 Unspecified atrial fibrillation; E86.0 Dehydration; N18.31 Chronic kidney disease, stage 3a; J44.9 Chronic obstructive pulmonary disease, unspecified; E78.5 Hyperlipidemia, unspecified; E03.9 Hypothyroidism, unspecified; E86.1 Hypovolemia; E87.5 Hyperkalemia; R13.10 Dysphagia, unspecified; R32 Unspecified urinary incontinence; R33.9 Retention of urine, unspecified; Z79.82 Long term (current) use of aspirin; Z79.51 Long term (current) use of inhaled steroids; Z79.890 Hormone replacement therapy; Z79.899 Other long term (current) drug therapy; Z87.440 Personal history of urinary (tract) infections; Z86.718 Personal history of other venous thrombosis and embolism; Z95.828 Presence of other vascular implants and grafts
CPT/HCPCS: 36415; 71045; 71046; 76705; 76770; 80048; 80053; 81001; 83605; 83735; 84450; 84460; 84484; 85025; 85027; 85610; 85730; 93005; 94640; 94760; 96360; 96361; 99285

== ENCOUNTER 2024-12-29 16:30 | Inpatient (IN) | payer MEDICARE, OTHER ==
--- NOTE | 2024-12-29 16:39 | ED ---
SOB HPI - General Chief Complaint: Shortness of Breath Stated Complaint: SOB Time Seen by Provider: 12/29/24 16:38 Source: patient, EMS Mode of arrival: EMS Limitations: no limitations - History of Present Illness Initial Comments: This is a 74-year-old male coming to ER from [facility] for fever and shortness of breath increased work of breathing noted throughout the day with elevated temperature and patient admits to shortness of breath here in the ER. Patient is not on oxygen and feels very short of breath here in the ER MD Complaint: shortness of breath, cough, anxiety -: hour(s) Severity: severe Severity scale (1-10): 8 Consistency: constant Improves With: nothing Known History Of: congestive heart failure Context: recent URI, anxiety, recent illness Associated Symptoms: fever, cough Treatments Prior to Arrival: none - Related Data Home Medications Medication Instructions Recorded Confirmed Aspirin [Branch Aspirin EC] 81 mg PO DAILY 12/24/18 12/29/24 Atorvastatin [Lipitor] 20 mg PO HS@199912/24/18 12/29/24 Alfuzosin HCl [Alfuzosin HCl ER] 10 mg PO DAILY 01/13/23 12/29/24 Budesonide/Formoterol Fumarate 2 puff INHALATION RT-BID 01/13/23 12/29/24 [Symbicort 160-4.5 Mcg Inhaler] Cholecalciferol [Vitamin D3 (25 75 mcg PO DAILY 01/13/23 12/29/24 Mcg = 1000 Iu)] Ferrous Sulfate [Iron (65 MG 325 mg PO HS 01/13/23 12/29/24 Elemental)] Lactulose 20 gm PO DAILY 01/13/23 12/29/24 Magnesium Oxide [Magox 400] 400 mg PO HS 01/13/23 12/29/24 Melatonin 3 mg PO HS 01/13/23 12/29/24 allopurinoL [Zyloprim] 100 mg PO DAILY 01/13/23 12/29/24 Brimonidine Tartrate [Alphagan P 1 drop BOTH EYES TID@0700,1300,1900 12/29/24 12/29/24 0.15% Ophth Soln] DULoxetine HCL [Cymbalta] 60 mg PO DAILY@0700 12/29/24 12/29/24 Divalproex Sprinkle [Depakote 125 mg PO BID@0700,1600 12/29/24 12/29/24 Sprinkle] Docusate [Colace] 100 mg PO BID 12/29/24 12/29/24 Furosemide [Lasix] 40 mg PO BID@0700,1600 12/29/24 12/29/24 Gabapentin [Neurontin] 300 mg PO TID@0700,1300,1900 12/29/24 12/29/24 Icy Hot Advanced Relief 7.5% Patch 1 patch TRANSDERM DAILY@0700 12/29/24 12/29/24 Ipratropium-Albuterol Nebulize 3 ml INHALATION RT-Q4H PRN 12/29/24 12/29/24 [Duoneb 0.5 mg-3 mg/3 ml Soln] Ipratropium-Albuterol Nebulize 3 ml INHALATION RT-Q8H PRN 12/29/24 12/29/24 [Duoneb 0.5 mg-3 mg/3 ml Soln] Levothyroxine Sodium [Synthroid] 88 mcg PO DAILY@0500 12/29/24 12/29/24 Montelukast [Singulair] 10 mg PO HS@1900 12/29/24 12/29/24 Naloxone HCl 0.4 mg SQ DIRECTED PRN 12/29/24 12/29/24 Naloxone HCl 4 mg NASAL DIRECTED PRN 12/29/24 12/29/24 metFORMIN HCL [Glucophage] 500 mg PO BID@0700,1600 12/29/24 12/29/24 oxyCODONE-APAP 10-325MG [Percocet 1 tab PO Q4H 12/29/24 12/29/24 10-325 mg] tea tree oiL [Tea Tree Oil] 1 applic TOPICAL HS 12/29/24 12/29/24 Allergies Allergy/AdvReac Type Severity Reaction Status Date / Time No Known Allergies Allergy Verified 12/29/24 19:42 Review of Systems ROS Statement: Those systems with pertinent positive or pertinent negative responses have been documented in the HPI. ROS Other: All systems not noted in ROS Statement are negative. Past Medical History Past Medical History: Atrial Fibrillation, Heart Failure, Hyperlipidemia, Hypertension, Renal Disease, Syncope Additional Past Medical History / Comment(s): anemia, UTI, Hypothyroid, depression, dysphagia History of Any Multi-Drug Resistant Organisms: None Reported Additional Past Surgical History / Comment(s): unknown Past Anesthesia/Blood Transfusion Reactions: No Reported Reaction Past Psychological History: No Psychological Hx Reported Past Alcohol Use History: None Reported Past Drug Use History: None Reported - Past Family History Father History Unknown: Yes Mother History Unknown: Yes General Exam Limitations: altered mental status General appearance: alert, in no apparent distress, anxious, in distress Head exam: Present: atraumatic, normocephalic, normal inspection Eye exam: Present: normal appearance, PERRL, EOMI. Absent: scleral icterus, conjunctival injection, periorbital swelling ENT exam: Present: normal exam, mucous membranes moist Neck exam: Present: normal inspection. Absent: tenderness, meningismus, lymphadenopathy Respiratory exam: Present: normal lung sounds bilaterally, respiratory distress, wheezes, accessory muscle use, decreased breath sounds, prolonged expiratory. Absent: rales, rhonchi, stridor Cardiovascular Exam: Present: normal rhythm, tachycardia, normal heart sounds. Absent: systolic murmur, diastolic murmur, rubs, gallop, clicks GI/Abdominal exam: Present: soft, normal bowel sounds. Absent: distended, tenderness, guarding, rebound, rigid Extremities exam: Present: normal inspection, full ROM, normal capillary refill. Absent: tenderness, pedal edema, joint swelling, calf tenderness Back exam: Present: normal inspection Neurological exam: Present: alert, oriented X3, CN II-XII intact Psychiatric exam: Present: normal affect, normal mood Skin exam: Present: warm, dry, intact, normal color. Absent: rash Course Vital Signs 12/29/24 12/29/24 12/29/24 16:33 16:36 17:50 Temperature 99.3 F Pulse Rate 124 H 118 H Respiratory 30 H 16 Rate Blood Pressure 143/85 O2 Sat by Pulse 98 96 Oximetry 12/29/24 12/29/24 12/29/24 17:56 18:05 20:00 Temperature Pulse Rate 111 H 118 H 112 H Respiratory 18 24 24 Rate Blood Pressure 153/84 104/72 O2 Sat by Pulse 97 98 Oximetry 12/29/24 12/29/24 21:00 22:00 Temperature Pulse Rate 111 H 110 H Respiratory 24 24 Rate Blood Pressure 132/74 139/76 O2 Sat by Pulse 97 98 Oximetry - Reevaluation(s) Reevaluation #1: 12/29/24 20:12 Medical records reviewed Reevaluation #2: 12/29/24 20:12 patient showing relatively no improvement here in the ER mental status improving Reevaluation #3: 12/29/24 20:12 Patient informed of results questions answered Reevaluation #4: Was pt. sent in by a medical professional or institution (, [facility], HYDROELECTRIC STATION OPERATOR CHIEF, urgent care, hospital, or [facility]...) When possible be specific @ -no Did you speak to anyone other than the patient for history (EMS, parent, family, police, friend...)? What history was obtained from this source @ -no Did you review nursing and triage notes (agree or disagree)? Why? @ -agree Are old charts reviewed (outside hosp., previous admission, EMS record, old EKG, old radiological studies, urgent care reports/EKG's, [facility] records)? Report findings @ -yes Differential Diagnosis (chest pain, altered mental status, abdominal pain women, abdominal pain men, vaginal bleeding, weakness, fever, dyspnea, syncope, headache, dizziness, GI bleed, back pain, seizure, CVA, palpatations, mental health, musculoskeletal)? @ -prior EKG interpreted by me (3pts min.). @ -yes X-rays interpreted by me (1pt min.). @ -yes negative for acute disease CT interpreted by me (1pt min.). @ -no U/S interpreted by me (1pt. min.). @ -no What testing was considered but not performed or refused? (CT, X-rays, U/S, labs)? Why? @ -none What meds were considered but not given or refused? Why? @ -none Did you discuss the management of the patient with other professionals (professionals i.e. [employer] Michel, HYDROELECTRIC STATION OPERATOR CHIEF, lab, RT, psych nurse, manager social work, janitorial supervisor, teacher, grants officer, case specialist)? Give summary @ -no Was smoking cessation discussed for >3mins.? @ -no Was critical care preformed (if so, how long)? @ -yes31 Were there social determinants of health that impacted care today? How? (Homelessness, low income, unemployed, alcoholism, drug addiction, transportation, low edu. Level, literacy, decrease access to med. care, [facility], rehab)? @ -none Was there de-escalation of care discussed even if they declined (Discuss DNR or withdrawal of care, Hospice)? DNR status @ -no What co-morbidities impacted this encounter? (DM, HTN, Smoking, COPD, CAD, Cancer, CVA, ARF, Chemo, Hep., AIDS, mental health diagnosis, sleep apnea, morbid obesity)? @ -none Was patient admitted / discharged? Hospital course, mention meds given and route, prescriptions, significant lab abnormalities, going to OR and other p ertinent info. @ - 74 male to ER with fever and sepsis suspect UTI no urine output currently, patient placed on antibiotics will admit for sepsis management, acute kidney injury on chronic renal failure with severely elevated white blood cell count Admit Undiagnosed new problem with uncertain prognosis? @ -no Drug Therapy requiring intensive monitoring for toxicity (Heparin, Nitro, Insulin, Cardizem)? @ -no Were any procedures done? @ -no Diagnosis/symptom? @ -Fever, sepsis, UTI Acute, or Chronic, or Acute on Chronic? @ -Acute Uncomplicated (without systemic symptoms) or Complicated (systemic symptoms)? @ -Complicated Side effects of treatment? @ -no Exacerbation, Progression, or Severe Exacerbation? @ -exacerbation Poses a threat to life or bodily function? How? (Chest pain, USA, NM, pneumonia, PE, COPD, DKA, ARF, appy, cholecystitis, CVA, Diverticulitis, Homicidal, Suicidal, threat to staff... and all critical care pts) @ -yes with sepsis Reevaluation #5: Differential Fever: Pneumonia, viral URI, endocarditis, myocarditis, pericarditis, otitis, sinusitis, peritonsillar Abscess, retropharyngeal Abscess, epiglottitis, peritonitis, appendicitis, Candy cystitis, diverticulitis, hepatitis, colitis, UTI, PID, TOA, pyelonephritis, prostatitis, epididymitis, meningitis, encephalitis, pulmonary embolism, CVA, thyroid storm, pancreatitis, adrenal c risis, cavernous sinus thrombosis, this is not meant to be an all-inclusive list. Differential Dyspnea: Coronary syndrome, arrhythmia, tamponade, asthma, COPD, pulmonary embolism, pneumonia, pneumothorax, pulmonary effusion, anaphylaxis, diabetic ketoacidosis, flailed chest, pulmonary contusion, diaphragmatic rupture, anemia, neuromuscular, this is not meant to be an all-inclusive list. - Consultations Consultation #1: Spoke with Dr. Bronson who agrees to admit this patient Procedures - Sepsis Sepsis Focused Exam #1 Time Sepsis Criteria Met: 19:00 Sepsis Focused Exam Date: 12/29/24 Sepsis Focused Exam Time: 21:00 Sepsis Focused Exam Complete: Yes Vital Signs & RN Notes Reviewed: Yes Capillary Refill: < 2 Seconds: Fingers, Toes Peripheral Pulses: Normal: Radial (R), Radial (L), Posterior Tibialis (R), Posterior Tibialis (L), Dorsalis Pedis (R), Dorsalis Pedis (L) Skin Color: Flushed Respiratory Exam: respiratory distress, wheezes, rales, rhonchi Cardiovascular Exam: tachycardia Medical Decision Making - Medical Decision Making 74 male to ER with fever and sepsis suspect UTI no urine output currently, patient placed on antibiotics will admit for sepsis management, acute kidney i njury on chronic renal failure with severely elevated white blood cell count - Lab Data Result diagrams: 01/06/25 06:31 01/06/25 06:31 Lab Results 12/29/24 12/29/24 12/29/24 Range/Units 17:09 17:09 17:09 WBC 27.73 H (4.50-10.00) 10*3/uL RBC 4.58 (4.40-5.60) 10*6/uL Hgb 13.2 (13.0-17.0) g/dL Hct 42.6 (39.6-50.0) % MCV 93.0 (80.0-97.0) fL MCH 28.8 (27.0-32.0) pg MCHC 31.0 L (32.0-37.0) g/dL Plt Count 451 H (140-440) 10*3/uL MPV 10.4 (9.5-12.2) fL Immature Gran % (Auto) 1.6 % Neutrophils % 89.9 % Lymphocytes % 4.1 % Monocytes % 3.8 % Eosinophils % 0.2 % Basophils % 0.4 % Immature Gran # 0.45 H (0.00-0.04) 10*3/uL Neutrophils # 24.94 H (1.80-7.70) 10*3/uL Lymphocytes # 1.13 (0.90-5.00) 10*3/uL Monocytes # 1.04 H (0.20-1.00) 10*3/uL Eosinophils # 0.06 (0.04-0.35) 10*3/uL Basophils # 0.11 H (0.00-0.10) 10*3/uL PT 11.5 (10.0-12.5) sec INR 1.1 (<1.2) APTT 22.4 (22.0-30.0) sec D-Dimer 1.59 H (<0.60) mg/L FEU Sodium (137-145) mmol/L Potassium (3.5-5.1) mmol/L Chloride (98-107) mmol/L Carbon Dioxide (22-30) mmol/L Anion Gap mmol/L BUN (9-20) mg/dL Creatinine (0.66-1.25) mg/dL Est GFR (CKD-EPI)AfAm (>60 ml/min/1.73 sqM) Est GFR (CKD-EPI)NonAf (>60 ml/min/1.73 sqM) Glucose (74-99) mg/dL Lactic Ac Sepsis Rflx Plasma Lactic Acid Zafar 3.3 H* (0.7-2.0) mmol/L Calcium (8.4-10.2) mg/dL Magnesium (1.6-2.3) mg/dL Total Bilirubin (0.2-1.3) mg/dL AST (17-59) U/L ALT (4-49) U/L Alkaline Phosphatase (38-126) U/L Troponin I (0.000-0.034) ng/mL NT-Pro-B Natriuret Pep pg/mL Total Protein (6.3-8.2) g/dL Albumin (3.5-5.0) g/dL TSH (0.465-4.680) mIU/L 12/29/24 12/29/24 12/29/24 Range/Units 17:24 17:24 17:26 WBC (4.50-10.00) 10*3/uL RBC (4.40-5.60) 10*6/uL Hgb (13.0-17.0) g/dL Hct (39.6-50.0) % MCV (80.0-97.0) fL MCH (27.0-32.0) pg MCHC (32.0-37.0) g/dL Plt Count (140-440) 10*3/uL MPV (9.5-12.2) fL Immature Gran % (Auto) % Neutrophils % % Lymphocytes % % Monocytes % % Eosinophils % % Basophils % % Immature Gran # (0.00-0.04) 10*3/uL Neutrophils # (1.80-7.70) 10*3/uL Lymphocytes # (0.90-5.00) 10*3/uL Monocytes # (0.20-1.00) 10*3/uL Eosinophils # (0.04-0.35) 10*3/uL Basophils # (0.00-0.10) 10*3/uL PT (10.0-12.5) sec INR (<1.2) APTT (22.0-30.0) sec D-Dimer (<0.60) mg/L FEU Sodium 148 H (137-145) mmol/L Potassium 4.8 (3.5-5.1) mmol/L Chloride 114 H (98-107) mmol/L Carbon Dioxide 21 L (22-30) mmol/L Anion Gap 13 mmol/L BUN 58 H (9-20) mg/dL Creatinine 2.08 H (0.66-1.25) mg/dL Est GFR (CKD-EPI)AfAm 35 (>60 ml/min/1.73 sqM) Est GFR (CKD-EPI)NonAf 31 (>60 ml/min/1.73 sqM) Glucose 271 H (74-99) mg/dL Lactic Ac Sepsis Rflx Y Plasma Lactic Acid Zafar (0.7-2.0) mmol/L Calcium 9.0 (8.4-10.2) mg/dL Magnesium 2.0 (1.6-2.3) mg/dL Total Bilirubin 1.1 (0.2-1.3) mg/dL AST 35 (17-59) U/L ALT 30 (4-49) U/L Alkaline Phosphatase 75 (38-126) U/L Troponin I 0.052 H* (0.000-0.034) ng/mL NT-Pro-B Natriuret Pep 1690 pg/mL Total Protein 7.9 (6.3-8.2) g/dL Albumin 3.7 (3.5-5.0) g/dL TSH 3.300 (0.465-4.680) mIU/L 12/29/24 Range/Units 19:55 WBC (4.50-10.00) 10*3/uL RBC (4.40-5.60) 10*6/uL Hgb (13.0-17.0) g/dL Hct (39.6-50.0) % MCV (80.0-97.0) fL MCH (27.0-32.0) pg MCHC (32.0-37.0) g/dL Plt Count (140-440) 10*3/uL MPV (9.5-12.2) fL Immature Gran % (Auto) % Neutrophils % % Lymphocytes % % Monocytes % % Eosinophils % % Basophils % % Immature Gran # (0.00-0.04) 10*3/uL Neutrophils # (1.80-7.70) 10*3/uL Lymphocytes # (0.90-5.00) 10*3/uL Monocytes # (0.20-1.00) 10*3/uL Eosinophils # (0.04-0.35) 10*3/uL Basophils # (0.00-0.10) 10*3/uL PT (10.0-12.5) sec INR (<1.2) APTT (22.0-30.0) sec D-Dimer (<0.60) mg/L FEU Sodium (137-145) mmol/L Potassium (3.5-5.1) mmol/L Chloride (98-107) mmol/L Carbon Dioxide (22-30) mmol/L Anion Gap mmol/L BUN (9-20) mg/dL Creatinine (0.66-1.25) mg/dL Est GFR (CKD-EPI)AfAm (>60 ml/min/1.73 sqM) Est GFR (CKD-EPI)NonAf (>60 ml/min/1.73 sqM) Glucose (74-99) mg/dL Lactic Ac Sepsis Rflx Plasma Lactic Acid Zafar 3.5 H* (0.7-2.0) mmol/L Calcium (8.4-10.2) mg/dL Magnesium (1.6-2.3) mg/dL Total Bilirubin (0.2-1.3) mg/dL AST (17-59) U/L ALT (4-49) U/L Alkaline Phosphatase (38-126) U/L Troponin I (0.000-0.034) ng/mL NT-Pro-B Natriuret Pep pg/mL Total Protein (6.3-8.2) g/dL Albumin (3.5-5.0) g/dL TSH (0.465-4.680) mIU/L - EKG Data -: EKG Interpreted by Me (EKG is sinus tachycardia 123 OK 119 QRS 92 QTc 375) - Radiology Data Radiology results: report reviewed (Chest x-ray is negative for acute disease), image reviewed Critical Care Time Critical Care Time: Yes Total Critical Care Time: 31 Disposition Clinical Impression: Dyspnea, Anemia, Acute kidney injury, Dehydration, Fever, Sepsis, Chronic kid melly disease Disposition: ADMITTED IP TO THIS [facility] Condition: Serious Is patient prescribed a controlled substance at d/c from ED?: No Time of Disposition: 20:00
[2024-12-29] MEDS: SODIUM CHLORIDE 0.9% 1,000 ML IV SCH ×2 (16:54→20:20)
[2024-12-29 17:28] LABS: Basophils # (A) 0.11 10*3/uL (0.00-0.10); Basophils % (A) 0.4 %; Eosinophils # (A) 0.06 10*3/uL (0.04-0.35); Eosinophils % (A) 0.2 %; HCT 42.6 % (39.6-50.0); HGB 13.2 g/dL (13.0-17.0); Lymphocytes # (A) 1.13 10*3/uL (0.90-5.00); Lymphocytes % (A) 4.1 %; MCH 28.8 pg (27.0-32.0); Mean Platelet Volume 10.4 fL (9.5-12.2); Monocytes # (A) 1.04 10*3/uL (0.20-1.00); Monocytes % (A) 3.8 %; Neutrophils # (A) 24.94 10*3/uL (1.80-7.70); Neutrophils % (A) 89.9 %; Platelet Count 451 10*3/uL (140-440); RBC 4.58 10*6/uL (4.40-5.60); RDW 16.1 % (11.5-14.5); WBC 27.73 10*3/uL (4.50-10.00)
[2024-12-29 17:41] LABS: INR 1.1 (<1.2); Partial Thromboplastin Time 22.4 sec (22.0-30.0); Prothrombin Time 11.5 sec (10.0-12.5)
[2024-12-29 17:46] LABS: ALT 30 U/L (4-49); African American GFR (CKD) 35 (>60 ml/min/1.73 sqM); Anion Gap 13 mmol/L; Blood Urea Nitrogen 58 mg/dL (9-20); Carbon Dioxide 21 mmol/L (22-30); Chloride 114 mmol/L (98-107); Glucose 271 mg/dL (74-99); Non-African American GFR(CKD) 31 (>60 ml/min/1.73 sqM); Sodium 148 mmol/L (137-145); Total Bilirubin 1.1 mg/dL (0.2-1.3)
[2024-12-29] MEDS: IPRATROPIUM-ALBUTEROL 3 ML NEB INHALATION STA (17:50)
[2024-12-29 17:52] LABS: AST 35 U/L (17-59); Albumin 3.7 g/dL (3.5-5.0); Alkaline Phosphatase 75 U/L (38-126); Potassium 4.8 mmol/L (3.5-5.1); Total Protein 7.9 g/dL (6.3-8.2)
--- NOTE | 2024-12-29 17:54 | XR ---
EXAMINATION TYPE: XR chest 1V portable DATE OF EXAM: 12/29/2024 5:13 PM COMPARISON: Chest radiographs from 01/18/2023. CLINICAL INDICATION: Male, 74 years old with history of sob; TECHNIQUE: XR chest 1V portable Frontal view of the chest. FINDINGS: Lungs/Pleura: There is no evidence of pleural effusion, focal consolidation, or pneumothorax. Pulmonary vascularity: Unremarkable. Heart/mediastinum: Cardiomediastinal silhouette is unremarkable. Musculoskeletal: No acute osseous pathology. Other findings: None IMPRESSION: No acute cardiopulmonary disease/process. [facility], , 12/29/2024 5:52 PM
[2024-12-29 17:55] LABS: NT-Pro-B-Type Natriuretic Pept 1690 pg/mL
[2024-12-29] MEDS ORDERED: ONDANSETRON 4 MG/2 ML VIAL IVP PRN (20:09)
[2024-12-29] MEDS ORDERED: NALOXONE 0.4 MG/ML 1 ML VIAL IV PRN (20:09)
[2024-12-29] MEDS ORDERED: MORPHINE SULFATE 4 MG/ML SYRINGE IV PRN (20:09)
[2024-12-29] MEDS: PANTOPRAZOLE 40 MG/10 ML VIAL IV SCH (21:18)
[2024-12-29 21:21] LABS: Influenza A Not Detected (Not Detectd); Influenza B Not Detected (Not Detectd); RSV Not Detected (Not Detectd)
[2024-12-30] MEDS ORDERED: IPRATROPIUM-ALBUTEROL 3 ML NEB INHALATION PRN (01:22)
[2024-12-30] MEDS ORDERED: LACTULOSE 20 GM/30 ML CUP PO PRN (01:22)
[2024-12-30 02:45] LABS: Appearance,Urine Cloudy (Clear); Bacteria,Urine Rare /hpf; Bilirubin,Urine Negative (Negative); Blood,Urine Large (Negative); Budding Yeast,Urine Few /hpf; Color,Urine Yellow; Glucose,Urine (UA) Trace (Negative); Hyaline Casts,Urine 4 /lpf (0-2); Ketones,Urine Negative (Negative); Leukocyte Esterase,Urine Large (Negative); Nitrite,Urine Negative (Negative); PH, Urine 5.5 (5.0-8.0); Protein,Urine 1+ (Negative); RBC,Urine 53 /hpf (0-5); Specific Gravity,Urine 1.017 (1.001-1.035); Squamous Epithelial Cell,Urine <1 /hpf (0-4); Urobilinogen,Urine <2.0 mg/dL (<2.0); WBC,Urine 127 /hpf (0-5)
[2024-12-30] MEDS: ACETAMINOPHEN TAB 325 MG TAB PO PRN (04:08)
[2024-12-30] MEDS: DEXTROSE 5%-0.45% NACL 1,000 ML IV SCH (04:11)
[2024-12-30 04:23] LABS: ALT 26 U/L (4-49); AST 38 U/L (17-59); African American GFR (CKD) 30 (>60 ml/min/1.73 sqM); Albumin 3.2 g/dL (3.5-5.0); Alkaline Phosphatase 75 U/L (38-126); Anion Gap 9 mmol/L; Blood Urea Nitrogen 62 mg/dL (9-20); Calcium 9.1 mg/dL (8.4-10.2); Carbon Dioxide 27 mmol/L (22-30); Chloride 115 mmol/L (98-107); Glucose 286 mg/dL (74-99); Non-African American GFR(CKD) 26 (>60 ml/min/1.73 sqM); Phosphorus 2.4 mg/dL (2.5-4.5); Potassium 4.1 mmol/L (3.5-5.1); Sodium 151 mmol/L (137-145); Total Bilirubin 0.5 mg/dL (0.2-1.3); Total Protein 6.8 g/dL (6.3-8.2)
[2024-12-30 04:40] LABS: HCT 36.4 % (39.6-50.0); HGB 11.4 g/dL (13.0-17.0); MCH 28.7 pg (27.0-32.0); MCHC 31.3 g/dL (32.0-37.0); MCV 91.7 fL (80.0-97.0); Mean Platelet Volume 10.6 fL (9.5-12.2); Platelet Count 371 10*3/uL (140-440); RBC 3.97 10*6/uL (4.40-5.60); RDW 16.3 % (11.5-14.5); WBC 20.07 10*3/uL (4.50-10.00)
[2024-12-30 04:51] LABS: Partial Thromboplastin Time 24.6 sec (22.0-30.0); Prothrombin Time 11.2 sec (10.0-12.5)
[2024-12-30 06:18] LABS: Band Neutrophils % 4 %; Lymphocytes # (M) 2.61 k/uL (1.0-4.8); Neutrophils # (M) 16.05 k/uL (1.3-7.7); Neutrophils % (M) 76 %; Nucleated Red Blood Cells 0 /100 WBC (0-0); Total Cells Counted 100
[2024-12-30 06:20] LABS: RBC Morphology Normal
[2024-12-30 06:24] LABS: Glucose,Whole Blood 263 mg/dL (70-110)
[2024-12-30] MEDS ORDERED: DEXTROSE 50% SYRINGE 50 ML IVP PRN ×2 (06:46)
--- NOTE | 2024-12-30 06:51 | XR ---
EXAMINATION TYPE: XR chest 1V portable DATE OF EXAM: 12/30/2024 CLINICAL INDICATION: Male, 74 years old with history of Resp distress, progress study. TECHNIQUE: Single AP portable upright view of the chest is obtained. COMPARISON: Chest x-ray from one day earlier FINDINGS: Cardiac silhouette size is stable and upper limits of normal. Increased interstitial [place] ngs bilaterally redemonstrated. No new focal airspace opacity, pleural effusion, or pneumothorax seen bilaterally. Osseous structures are intact. IMPRESSION: Perhaps mild interstitial edema bilaterally. No new focal airspace opacity seen. [facility], , 12/30/2024 6:49 AM
[2024-12-30 07:28] LABS: Glucose,Whole Blood 256 mg/dL (70-110)
[2024-12-30] MEDS: FUROSEMIDE 10 MG/ML 4 ML VIAL IV STA (07:40)
[2024-12-30] MEDS: DEXTROSE 5% IN WATER 1,000 ML IV SCH (07:40)
[2024-12-30] MEDS: FUROSEMIDE 10 MG/ML 4 ML VIAL ONE (08:01)
[2024-12-30] MEDS: SYMBICORT 160-4.5 MCG INHALER INHALATION SCH (08:10)
[2024-12-30 08:49] LABS: ABG Base Excess 1.2 mmol/L; ABG HCO3 27 mmol/L (21-25); ABG Oxygen Saturation 97.1 % (94-97); ABG PCO2 46 mmHg (35-45); ABG PH 7.37 (7.35-7.45); ABG PO2 90 mmHg (83-108); ABG TCO2 28 mmol/L (19-24); Allen Test Performed? Yes
[2024-12-30] MEDS: ASPIRIN 81 MG PO SCH (08:57)
[2024-12-30] MEDS: CHOLECALCIFEROL 25 MCG (1000 IU) TABLET PO SCH (08:57)
[2024-12-30] MEDS: DOCUSATE 100 MG CAP PO SCH (08:57)
[2024-12-30] MEDS: HEPARIN SODIUM,PORCINE 5,000 UNIT/ML 1 ML VIAL SQ SCH (08:57)
[2024-12-30] MEDS: GABAPENTIN 300 MG CAP PO SCH (08:57)
[2024-12-30] MEDS: ACETAMINOPHEN IV (For NPO) 1,000 MG in EMPTY BAG 1 BAG IVPB STA (08:58)
[2024-12-30] MEDS: IPRATROPIUM-ALBUTEROL 3 ML NEB INHALATION PRN (09:00)
[2024-12-30] MEDS: INSULIN GLARGINE (LANTUS) 100 UNIT/ML SYR SQ SCH (09:11)
[2024-12-30] MEDS: DULoxetine HCL 60 MG CAPSULE.DR PO SCH (09:11)
[2024-12-30] MEDS: BRIMONIDINE TARTRATE 0.2% DROPS 5 ML BTL BOTH EYES SCH (09:11)
[2024-12-30] MEDS: LEVOTHYROXINE 88 MCG TAB PO SCH (09:12)
[2024-12-30] MEDS: INSULIN LISPRO (HumaLOG) 100 UNIT/ML 10 mL VL SQ SCH (09:12)
[2024-12-30] MEDS: DIVALPROEX SPRINKLE 125 MG CAP.SPRINK PO SCH (09:12)
[2024-12-30] MEDS ORDERED: VANCOMYCIN IV PER PHARMACY 1 EACH MISC MISCELLANE PRN (09:18)
--- NOTE | 2024-12-30 09:42 | P.CRDCN ---
History of Present Illness Consult date: 12/30/24 Requesting physician: Cynthia Hernandez Reason for Consult (text): troponin elevation History of present illness: Patient is a 74 year old male with past medical history of atrial fibrillation, congestive heart failure with last known ejection fraction 55 to 60% in 2019, Hypertension, CKD, hypothyroidism presented to the ED from extended care facility with shortness of breath. Patient was found to have fever along with increased work of breathing throughout the day. Patient denies being on oxygen. Patient seen today in cardiac consultation for elevated troponin Denies chills, chest pain, palpitations, abdominal pain, nausea, vomiting, hematuria, dysuria, hematochezia, melena, headache, slurred speech, numbness, tingling, dizziness, lightheadedness, blurred vision, double vision. ED documentation reviewed. In the ED patient was treated with Vitals T 100.9 F, AR 101 bpm, RR 22, BP 122/61, SpO2 93% on 3 L O2 via nasal cannula EKG independently interpreted as Sinus tachycardia, rate 123 bpm, QTc 375 ms, Non significant ST-T wave changes Chest x-ray shows no acute cardiopulmonary disease/process Labs show WBC 20.07, hemoglobin 11.4, platelet count 371, INR 1.0, D-dimer 1.59, sodium 151, chloride 115, BUN 62, creatinine 2.37, phosphorus 2.4, lactic acid 2.0, albumin 3.2, TSH 3.3 Troponin I 0.052, 0.077, 0.088 UA shows 1+ protein, large blood, trace glucose, large leukocyte esterase, 53 RBC, 127 WBC Respiratory panel is negative Review of systems: Pertinent positives and negatives as discussed in HPI, a complete review of systems was performed and all other systems are negative. Physical examination: Vital signs reviewed GENERAL: This is a 74-year-old male, not in acute distress HEENT: Head is atraumatic. NECK: Supple, no JVD LUNGS: CTA bilaterally, no wheezes, no crackles HEART: S1-S2 audible,no murmur ABDOMEN: Soft, nontender EXTREMITIES: Trace edema, bandaged wound on the lower extremity Detailed neuro exam was not performed Assessment: UTI Sepsis SIMRAN on CKD Elevated troponin, likely secondary to sepsis and SIMRAN Elevated D-Dimer, likely due to sepsis History of HFpEF, last known EF 55-60% in 2019 Hypertension Hyperlipidemia Hypothyroidism Hypernatremia Plan: Obtain 2D echo and Doppler study to assess cardiac structure and function Resume home cardiac medications Hold nephrotoxic medications Continue antibiotics per ID Appreciate critical care opinion for elevated D-dimer Will continue to monitor Further recommendations pending clinical course Dictation was produced using [employer] dictation software. please excuse any grammatical, word or spelling errors. Alysha Adhikari MD PGY-1 IM I have seen and evaluated the patient today. Discussed with the resident and a gree with the residents finding and plan as documented in the resident's note. Past Medical History Past Medical History: Atrial Fibrillation, Heart Failure, Hyperlipidemia, Hypertension, Renal Disease, Syncope Additional Past Medical History / Comment(s): anemia, UTI, Hypothyroid, depression, dysphagia History of Any Multi-Drug Resistant Organisms: None Reported Additional Past Surgical History / Comment(s): unknown Past Anesthesia/Blood Transfusion Reactions: No Reported Reaction Past Psychological History: No Psychological Hx Reported Smoking Status: Unknown if ever smoked Past Alcohol Use History: None Reported Past Drug Use History: None Reported - Past Family History Father History Unknown: Yes Mother History Unknown: Yes Medications and Allergies Home Medications Medication Instructions Recorded Confirmed Type Aspirin [[place] Aspirin EC] 81 mg PO DAILY 12/24/18 12/29/24 History Atorvastatin [Lipitor] 20 mg PO HS@199912/24/18 12/29/24 History Alfuzosin HCl [Alfuzosin HCl ER] 10 mg PO DAILY 01/13/23 12/29/24 History Budesonide/Formoterol Fumarate 2 puff INHALATION RT-BID 01/13/23 12/29/24 History [Symbicort 160-4.5 Mcg Inhaler] Cholecalciferol [Vitamin D3 (25 75 mcg PO DAILY 01/13/23 12/29/24 History Mcg = 1000 Iu)] Ferrous Sulfate [Iron (65 MG 325 mg PO HS 01/13/23 12/29/24 History Elemental)] Lactulose 20 gm PO DAILY 01/13/23 12/29/24 History Magnesium Oxide [Magox 400] 400 mg PO HS 01/13/23 12/29/24 History Melatonin 3 mg PO HS 01/13/23 12/29/24 History allopurinoL [Zyloprim] 100 mg PO DAILY 01/13/23 12/29/24 History Brimonidine Tartrate [Alphagan P 1 drop BOTH EYES TID@0700,1300,1900 12/29/24 12/29/24 History 0.15% Ophth Soln] DULoxetine HCL [Cymbalta] 60 mg PO DAILY@0700 12/29/24 12/29/24 History Divalproex Sprinkle [Depakote 125 mg PO BID@0700,1600 12/29/24 12/29/24 History Sprinkle] Docusate [Colace] 100 mg PO BID 12/29/24 12/29/24 History Furosemide [Lasix] 40 mg PO BID@0700,1600 12/29/24 12/29/24 History Gabapentin [Neurontin] 300 mg PO TID@0700,1300,0 12/29/24 12/29/24 History Icy Hot Advanced Relief 7.5% Patch 1 patch TRANSDERM DAILY@0700 12/29/24 12/29/24 History Ipratropium-Albuterol Nebulize 3 ml INHALATION RT-Q4H PRN 12/29/24 12/29/24 History [Duoneb 0.5 mg-3 mg/3 ml Soln] Ipratropium-Albuterol Nebulize 3 ml INHALATION RT-Q8H PRN 12/29/24 12/29/24 History [Duoneb 0.5 mg-3 mg/3 ml Soln] Levothyroxine Sodium [Synthroid] 88 mcg PO DAILY@0500 12/29/24 12/29/24 History Montelukast [Singulair] 10 mg PO HS@189912/29/24 12/29/24 History Naloxone HCl 0.4 mg SQ DIRECTED PRN 12/29/24 12/29/24 History Naloxone HCl 4 mg NASAL DIRECTED PRN 12/29/24 12/29/24 History metFORMIN HCL [Glucophage] 500 mg PO BID@0700,1600 12/29/24 12/29/24 History oxyCODONE-APAP 10-325MG [Percocet 1 tab PO Q4H 12/29/24 12/29/24 History 10-325 mg] tea tree oiL [Tea Tree Oil] 1 applic TOPICAL HS 12/29/24 12/29/24 History Allergies Allergy/AdvReac Type Severity Reaction Status Date / Time No Known Allergies Allergy Verified 12/29/24 19:42 Physical Exam Vitals: Vital Signs Temp Pulse Pulse Resp BP BP Pulse Ox 12/30/24 05:16 100.9 F H 12/30/24 04:00 102.6 F H 101 H 22 128/61 93 L 12/30/24 02:00 105 H 22 12/30/24 00:03 100.6 F H 109 H 22 101/65 96 12/29/24 23:30 99.4 F 109 H 24 146/85 99 12/29/24 22:00 110 H 24 139/76 98 12/29/24 21:00 111 H 24 132/74 97 12/29/24 20:00 112 H 24 104/72 98 12/29/24 18:05 118 H 24 153/84 97 12/29/24 17:56 111 H 18 12/29/24 17:50 118 H 16 12/29/24 16:36 96 12/29/24 16:33 99.3 F 124 H 30 H 143/85 98 Intake and Output 12/29/24 12/30/24 12/30/24 22:59 06:59 14:59 Intake Total 10 175 Output Total 200 290 Balance -190 -115 Intake: IV 10 Invasive Line 1 10 Intake, IV Titration 175 Amount Dextrose 5% in Water 1, 75 000 ml @ 75 mls/hr IV . [id number] [facility] Rx#:[id number] cefTRIAXone 1 gm In 100 Sodium Chloride 0.9% 50 ml @ 100 mls/hr IVPB Q24HR [facility] Rx#:[id number] Output: Urine 200 290 Other: Voiding Method External Catheter Weight 110.677 kg 110.5 kg Results 12/30/24 04:00 12/30/24 04:00 Cardiac Enzymes 12/29/24 12/29/24 12/29/24 Range/Units 17:24 17:24 21:13 AST 35 (17-59) U/L Troponin I 0.052 H* 0.077 H* (0.000-0.034) ng/mL 12/30/24 12/30/24 Range/Units 04:00 04:00 AST 38 (17-59) U/L Troponin I 0.088 H* (0.000-0.034) ng/mL Coagulation 12/29/24 12/30/24 Range/Units 17:09 04:00 PT 11.5 11.2 (10.0-12.5) sec APTT 22.4 24.6 (22.0-30.0) sec CBC 12/29/24 12/30/24 Range/Units 17: 04:00 WBC 27.73 H 20.07 H (4.50-10.00) 10*3/uL RBC 4.58 3.97 L (4.40-5.60) 10*6/uL Hgb 13.2 11.4 L (13.0-17.0) g/dL Hct 42.6 36.4 L (39.6-50.0) % Plt Count 451 H 371 (140-440) 10*3/uL Comprehensive Metabolic Panel 12/29/24 12/30/24 Range/Units 17: 04:00 Sodium 148 H 151 H (137-145) mmol/L Potassium 4.8 4.1 (3.5-5.1) mmol/L Chloride 114 H 115 H (98-107) mmol/L Carbon Dioxide 21 L 27 (22-30) mmol/L BUN 58 H 62 H (9-20) mg/dL Creatinine 2.08 H 2.37 H (0.66-1.25) mg/dL Glucose 271 H 286 H (74-99) mg/dL Calcium 9.0 9.1 (8.4-10.2) mg/dL AST 35 38 (17-59) U/L ALT 30 26 (4-49) U/L Alkaline Phosphatase 75 75 (38-126) U/L Total Protein 7.9 6.8 (6.3-8.2) g/dL Albumin 3.7 3.2 L (3.5-5.0) g/dL Current Medications Generic Name Dose Route Start Last Admin Trade Name Freq PRN Reason Stop Dose Admin Acetaminophen 650 mg 12/29/24 20:09 12/30/24 04:08 Acetaminophen Tab 325 Mg Tab PO 650 mg Q6HR PRN Administration Mild Pain or Fever > 100.5 Albuterol/Ipratropium 3 ml 12/30/24 01:22 Ipratropium-Albuterol 3 Ml Neb INHALATION RT-Q4H PRN Shortness Of Breath Or Wheezing Aspirin 81 mg 12/30/24 09:00 Aspirin 81 Mg PO DAILY [facility] Atorvastatin Calcium 20 mg 12/30/24 21:00 Atorvastatin 20 Mg Tab PO HS [facility] Brimonidine Tartrate 1 drops 12/30/24 08:00 Brimonidine Tartrate 0.2% Drops 5 Ml Btl BOTH EYES Q8HR [facility] Budesonide/Formoterol Fumarate 2 puff 12/30/24 08:00 Symbicort 160-4.5 Mcg Inhaler INHALATION RT-BID [facility] Cholecalciferol 75 mcg 12/30/24 09:00 Cholecalciferol 25 Mcg (1000 Iu) Tablet PO DAILY [facility] Dextrose/Water 25 ml 12/30/24 06:46 Dextrose 50% Syringe 50 Ml IVP PER PROTOCOL PRN Hypoglycemia Protocol Dextrose/Water 50 ml 12/30/24 06:46 Dextrose 50% Syringe 50 Ml IVP PER PROTOCOL PRN Hypoglycemia Protocol Divalproex Sodium 125 mg 12/30/24 09:00 Divalproex Sprinkle 125 Mg Cap.Sprink PO BID [facility] Docusate Sodium 100 mg 12/30/24 09:00 Docusate 100 Mg Cap PO BID [facility] Duloxetine HCl 60 mg 12/30/24 09:00 Duloxetine Hcl 60 Mg Capsule.Dr PO DAILY [facility] Ferrous Sulfate 325 mg 12/30/24 21:00 Ferrous Sulfate 325 Mg Tab PO HS [facility] Gabapentin 300 mg 12/30/24 08:00 Gabapentin 300 Mg Cap PO Q8HR [facility] Heparin Sodium (Porcine) 5,000 unit 12/30/24 08:00 Heparin Sodium,Porcine 5,000 Unit/Ml 1 Ml Vial SQ Q8HR [facility] Ceftriaxone Sodium 1 gm/ 50 mls @ 100 mls/hr 12/30/24 09:00 Sodium Chloride IVPB Q24HR [facility] Protocol Dextrose/Water 1,000 mls @ 75 mls/hr 12/30/24 07:00 12/30/24 07:40 Dextrose 5%-Water Iv Soln IV 75 mls/hr .[id number] [facility] Administration Ibuprofen 400 mg 12/29/24 20:09 Ibuprofen 400 Mg Tab PO Q6HR PRN Mild Pain or Fever > 100.5 Insulin Glargine 20 unit 12/30/24 07:00 Insulin Glargine (Lantus) 100 Unit/Ml Syr SQ DAILY@0700 [facility] Insulin Human Lispro 0 unit 12/30/24 07:30 Insulin Lispro (Humalog) 100 Unit/Ml 10 Ml Vl SQ ACHS [facility] Protocol Lactulose 20 gm 12/30/24 01:22 Lactulose 20 Gm/30 Ml Cup PO DAILY PRN Constipation Levothyroxine Sodium 88 mcg 12/30/24 06:00 Levothyroxine 88 Mcg Tab PO DAILY@0600 [facility] Magnesium Oxide 400 mg 12/30/24 21:00 Magnesium Oxide 400 Mg Tab PO HS [facility] Melatonin 3 mg 12/30/24 21:00 Melatonin 3 Mg Tablet PO HS [facility] Montelukast Sodium 10 mg 12/30/24 21:00 Montelukast 10 Mg Tab PO HS [facility] Naloxone HCl 0.2 mg 12/29/24 20:09 Naloxone 0.4 Mg/Ml 1 Ml Vial IV Q2M PRN Opioid Reversal Ondansetron HCl 4 mg 12/29/24 20:09 Ondansetron 4 Mg/2 Ml Vial IVP Q8HR PRN Nausea And Vomiting Oxycodone/Acetaminophen 1 each 12/30/24 01:22 Oxycodone-Apap 10-325mg 1 Each Tab PO Q4H PRN Moderate to Severe Pain (4-10) Intake and Output 12/29/24 12/30/24 12/30/24 22:59 06:59 14:59 Intake Total 10 175 Output Total 200 290 Balance -190 -115 Intake: IV 10 Invasive Line 1 10 Intake, IV Titration 175 Amount Dextrose 5% in Water 1, 75 000 ml @ 75 mls/hr IV . [id number] [facility] Rx#:[id number] cefTRIAXone 1 gm In 100 Sodium Chloride 0.9% 50 ml @ 100 mls/hr IVPB Q24HR [facility] Rx#:[id number] Output: Urine 200 290 Other: Voiding Method External Catheter Weight 110.677 kg 110.5 kg 12/30/24 04:00 12/30/24 04:00
[2024-12-30] MEDS: VANCOMYCIN 1,750 MG in SODIUM CHLORIDE 0.9% 500 ML 500 ML IVPB ONE (10:03)
[2024-12-30 11:42] LABS: Glucose,Whole Blood 277 mg/dL (70-110)
--- NOTE | 2024-12-30 12:25 | P.CNPUL ---
History of Present Illness Consult date: 12/30/24 Requesting physician: Hao Silva Reason for consult: other (ICU management) Chief complaint: Shortness of breath History of present illness: This is a 74-year-old white male with history of chronic cellulitis of lower extremities, patient has not been seeking any medical attention or care to his cellulitis, patient was sent from [facility] care facility yesterday mostly with symptoms of fever shortness of breath, increased work of breathing and he had a temperature as high as 102.6 upon his initial evaluation in the ER. Workup in the ER included CBC which showed leukocytosis with WBC count of 27.7, hemoglobin 13.2 89.9% neutrophilia, slightly elevated D-dimer 1.59 hypernatremia with sod ium of 148 bicarb 21 BUN is 58 creatinine 2.08, elevated lactic acid of 3.5 elevated troponin of 0.077, and abnormal urinalysis showing pyuria, large leukocyte esterase, and negative nitrite. Viral screen was negative for influenza AB RSV and SARS. Chest x-ray on admission showed no evidence of any acute cardiopulmonary process. Patient was admitted to the regular medical floor, however the a team was called to evaluate this patient earlier today, and the patient was complaining of shortness of breath, he did receive fluid boluses upon admission for the diagnosis of sepsis, patient was given a dose of Lasix I was made aware of this patient and I recommended transfer to the ICU for managem ent of his sepsis. That 2 likely sources of sepsis include bilateral lower extremity cellulitis, and possible urinary tract infection. But clinically the patient is clearly septic. Remained hemodynamically stable did not require any pressors. I saw this patient in the ICU, and he was alert, oriented, receiving antibiotics, and patient has cooling blankets for his temp as high as 102. Review of Systems REVIEW OF SYSTEMS: CONSTITUTIONAL: Fever chills fatigue weakness EYES: Negative. ENT: Negative. CARDIAC: Negative. PULMONARY: Shortness of breath and occasional cough GI: Negative. GENITOURINARY: Denies any dysuria frequency urgency or hematuria MUSCULOSKELETAL: Generalized aches and weakness SKIN: Chronic cellulitis of both lower extremities NEUROPSYCH: Negative. ENDOCRINE: Negative. HEMATOLOGIC: Negative. Past Medical History Past Medical History: Atrial Fibrillation, Heart Failure, Hyperlipidemia, Hypertension, Renal Disease, Syncope Additional Past Medical History / Comment(s): anemia, UTI, Hypothyroid, depression, dysphagia History of Any Multi-Drug Resistant Organisms: None Reported Additional Past Surgical History / Comment(s): unknown Past Anesthesia/Blood Transfusion Reactions: No Reported Reaction Past Psychological History: No Psychological Hx Reported Smoking Status: Unknown if ever smoked Past Alcohol Use History: None Reported Past Drug Use History: None Reported - Past Family History Father History Unknown: Yes Mother History Unknown: Yes Medications and Allergies Home Medications Medication Instructions Recorded Confirmed Type Aspirin [[place] Aspirin EC] 81 mg PO DAILY 12/24/18 12/29/24 History Atorvastatin [Lipitor] 20 mg PO HS@199912/24/18 12/29/24 History Alfuzosin HCl [Alfuzosin HCl ER] 10 mg PO DAILY 01/13/23 12/29/24 History Budesonide/Formoterol Fumarate 2 puff INHALATION RT-BID 01/13/23 12/29/24 History [Symbicort 160-4.5 Mcg Inhaler] Cholecalciferol [Vitamin D3 (25 75 mcg PO DAILY 01/13/23 12/29/24 History Mcg = 1000 Iu)] Ferrous Sulfate [Iron (65 MG 325 mg PO HS 01/13/23 12/29/24 History Elemental)] Lactulose 20 gm PO DAILY 01/13/23 12/29/24 History Magnesium Oxide [Magox 400] 400 mg PO HS 01/13/23 12/29/24 History Melatonin 3 mg PO HS 01/13/23 12/29/24 History allopurinoL [Zyloprim] 100 mg PO DAILY 01/13/23 12/29/24 History Brimonidine Tartrate [Alphagan P 1 drop BOTH EYES TID@0700,1300,1900 12/29/24 12/29/24 History 0.15% Ophth Soln] DULoxetine HCL [Cymbalta] 60 mg PO DAILY@0700 12/29/24 12/29/24 History Divalproex Sprinkle [Depakote 125 mg PO BID@0700,1600 12/29/24 12/29/24 History Sprinkle] Docusate [Colace] 100 mg PO BID 12/29/24 12/29/24 History Furosemide [Lasix] 40 mg PO BID@0700,1600 12/29/24 12/29/24 History Gabapentin [Neurontin] 300 mg PO TID@0700,1300,1900 12/29/24 12/29/24 History Icy Hot Advanced Relief 7.5% Patch 1 patch TRANSDERM DAILY@0700 12/29/24 12/29/24 History Ipratropium-Albuterol Nebulize 3 ml INHALATION RT-Q4H PRN 12/29/24 12/29/24 History [Duoneb 0.5 mg-3 mg/3 ml Soln] Ipratropium-Albuterol Nebulize 3 ml INHALATION RT-Q8H PRN 12/29/24 12/29/24 History [Duoneb 0.5 mg-3 mg/3 ml Soln] Levothyroxine Sodium [Synthroid] 88 mcg PO DAILY@0500 12/29/24 12/29/24 History Montelukast [Singulair] 10 mg PO HS@189912/29/24 12/29/24 History Naloxone HCl 0.4 mg SQ DIRECTED PRN 12/29/24 12/29/24 History Naloxone HCl 4 mg NASAL DIRECTED PRN 12/29/24 12/29/24 History metFORMIN HCL [Glucophage] 500 mg PO BID@0700,1600 12/29/24 12/29/24 History oxyCODONE-APAP 10-325MG [Percocet 1 tab PO Q4H 12/29/24 12/29/24 History 10-325 mg] tea tree oiL [Tea Tree Oil] 1 applic TOPICAL HS 12/29/24 12/29/24 History Allergies Allergy/AdvReac Type Severity Reaction Status Date / Time No Known Allergies Allergy Verified 12/29/24 19:42 Physical Exam Vitals: Vital Signs Temp Pulse Pulse Resp BP BP Pulse Ox 12/30/24 11:00 100.0 F H 104 H 21 110/55 96 12/30/24 10:30 100 21 113/56 96 12/30/24 10:00 101.1 F H 101 H 23 112/57 95 12/30/24 09:30 107 H 21 142/73 96 12/30/24 09:13 104 H 12/30/24 09:00 103 H 14 126/70 98 12/30/24 08:58 97 12/30/24 08:30 103.0 F H 105 H 23 136/71 97 12/30/24 08:22 109 H 22 136/71 12/30/24 08:00 99 20 144/73 94 L 12/30/24 07:48 102.0 F H 103 H 22 115/68 93 L 12/30/24 05:16 100.9 F H 12/30/24 04:00 102.6 F H 101 H 22 128/61 93 L 12/30/24 02:00 105 H 22 12/30/24 00:03 100.6 F H 109 H 22 101/65 96 12/29/24 23:30 99.4 F 109 H 24 146/85 99 12/29/24 22:00 110 H 24 139/76 98 12/29/24 21:00 111 H 24 132/74 97 12/29/24 20:00 112 H 24 104/72 98 12/29/24 18:05 118 H 24 153/84 97 12/29/24 17:56 111 H 18 12/29/24 17:50 118 H 16 12/29/24 16:36 96 12/29/24 16:33 99.3 F 124 H 30 H 143/85 98 Intake and Output 12/29/24 12/30/24 12/30/24 22:59 06:59 14:59 Intake Total 10 1035 Output Total 200 500 Balance -190 535 Intake: IV 10 10 Invasive Line 1 10 10 Intake, IV Titration 1025 Amount ACETAMINOPHEN IV (For NPO 100 ) 1,000 mg In Empty Bag 1 bag @ 400 mls/hr IVPB ONCE STA Rx#:[id number] Cefepime 2 gm In Dextrose 100 5% in Water 100 ml @ 25 mls/hr IVPB Q8HR [facility] Rx#: [id number] Dextrose 5% in Water 1, 225 000 ml @ 75 mls/hr IV . [id number] [facility] Rx#:[id number] Vancomycin 1,750 mg In 500 Sodium Chloride 0.9% 500 ml 500 ml @ 167 mls/hr IVPB ONCE ONE Rx#: [id number] cefTRIAXone 1 gm In 100 Sodium Chloride 0.9% 50 ml @ 100 mls/hr IVPB Q24HR [facility] Rx#:[id number] Output: Urine 200 500 Other: Voiding Method External Catheter Indwelling Catheter Weight 110.677 kg 110.5 kg GENERAL: Revealed 74-year-old white male on nasal cannula, in no distress. Looks ill. HEENT: PERRLA, EOMI, nonicteric, no neck masses no JVD NECK: No neck masses no stridor no JVD LUNGS: Diminished breath sounds at the bases, no crackles rhonchi or wheezes HEART: Tachycardic, normal S1-S2 audible,no murmur ABDOMEN: Obese, soft, nontender no megaly, no rebound, no guarding. EXTREMITIES: Both are wrapped with Mo wrappings, however pictures of the lower extremities are consistent with severe cellulitis/chronic and redness/erythema extending up to the mid thighs bilaterally. Neurologic: Alert oriented x 3, patient looks weak and lethargic. But arousable. Psychiatric: Normal mood, flat affect, normal mental status. Skin: As noted above extensive cellulitis affecting both lower extremities. Results - Laboratory Findings CBC and BMP: 12/30/24 04:00 12/30/24 04:00 ABG ABG pH 7.37 (7.35-7.45) 12/30/24 08:47 ABG pCO2 46 mmHg (35-45) H 12/30/24 08:47 ABG pO2 90 mmHg (83-108) 12/30/24 08:47 ABG O2 Saturation 97.1 % (94-97) H 12/30/24 08:47 PT/INR, D-dimer PT 11.2 sec (10.0-12.5) 12/30/24 04:00 INR 1.0 (<1.2) 12/30/24 04:00 D-Dimer 1.59 mg/L FEU (<0.60) H 12/29/24 17:09 Abnormal lab findings: Abnormal Labs 12/29/24 12/29/24 12/29/24 17:09 17:09 17:09 WBC 27.73 H RBC Hgb Hct MCHC 31.0 L Plt Count 451 H Immature Gran # 0.45 H Neutrophils # 24.94 H Neutrophils # (Manual) Monocytes # 1.04 H Monocytes # (Manual) Basophils # 0.11 H D-Dimer 1.59 H ABG pCO2 ABG HCO3 ABG Total CO2 ABG O2 Saturation Hemoglobin Sodium Chloride Carbon Dioxide BUN Creatinine Glucose POC Glucose (mg/dL) Plasma Lactic Acid Zafar 3.3 H* Phosphorus Troponin I Albumin Urine Protein Urine Glucose (UA) Urine Blood Ur Leukocyte Esterase Urine RBC Urine WBC Urine WBC Clumps Urine Bacteria Hyaline Casts Urine Yeast (Budding) 12/29/24 12/29/24 12/29/24 17:24 17:24 19:55 WBC RBC Hgb Hct MCHC Plt Count Immature Gran # Neutrophils # Neutrophils # (Manual) Monocytes # Monocytes # (Manual) Basophils # D-Dimer ABG pCO2 ABG HCO3 ABG Total CO2 ABG O2 Saturation Hemoglobin Sodium 148 H Chloride 114 H Carbon Dioxide 21 L BUN 58 H Creatinine 2.08 H Glucose 271 H POC Glucose (mg/dL) Plasma Lactic Acid Zafar 3.5 H* Phosphorus Troponin I 0.052 H* Albumin Urine Protein Urine Glucose (UA) Urine Blood Ur Leukocyte Esterase Urine RBC Urine WBC Urine WBC Clumps Urine Bacteria Hyaline Casts Urine Yeast (Budding) 12/29/24 12/30/24 12/30/24 21:13 02:00 04:00 WBC 20.07 H RBC 3.97 L Hgb 11.4 L Hct 36.4 L MCHC 31.3 L Plt Count Immature Gran # 0.14 H Neutrophils # Neutrophils # (Manual) 16.05 H Monocytes # Monocytes # (Manual) 1.20 H Basophils # D-Dimer ABG pCO2 ABG HCO3 ABG Total CO2 ABG O2 Saturation Hemoglobin Sodium Chloride Carbon Dioxide BUN Creatinine Glucose POC Glucose (mg/dL) Plasma Lactic Acid Zafar Phosphorus Troponin I 0.077 H* Albumin Urine Protein 1+ H Urine Glucose (UA) Trace H Urine Blood Large H Ur Leukocyte Esterase Large H Urine RBC 53 H Urine WBC 127 H Urine WBC Clumps Rare H Urine Bacteria Rare H Hyaline Casts 4 H Urine Yeast (Budding) Few H 12/30/24 12/30/24 12/30/24 04:00 04:00 04:00 WBC RBC Hgb Hct MCHC Plt Count Immature Gran # Neutrophils # Neutrophils # (Manual) Monocytes # Monocytes # (Manual) Basophils # D-Dimer ABG pCO2 ABG HCO3 ABG Total CO2 ABG O2 Saturation Hemoglobin Sodium 151 H Chloride 115 H Carbon Dioxide BUN 62 H Creatinine 2.37 H Glucose 286 H POC Glucose (mg/dL) Plasma Lactic Acid Zafar 2.3 H* Phosphorus 2.4 L Troponin I 0.088 H* Albumin 3.2 L Urine Protein Urine Glucose (UA) Urine Blood Ur Leukocyte Esterase Urine RBC Urine WBC Urine WBC Clumps Urine Bacteria Hyaline Casts Urine Yeast (Budding) 0512/30/24 12/30/24 06:22 07:26 08:47 WBC RBC Hgb Hct MCHC Plt Count Immature Gran # Neutrophils # Neutrophils # (Manual) Monocytes # Monocytes # (Manual) Basophils # D-Dimer ABG pCO2 46 H ABG HCO3 27 H ABG Total CO2 28 H ABG O2 Saturation 97.1 H Hemoglobin 12.1 L Sodium Chloride Carbon Dioxide BUN Creatinine Glucose POC Glucose (mg/dL) 263 H 256 H Plasma Lactic Acid Zafar Phosphorus Troponin I Albumin Urine Protein Urine Glucose (UA) Urine Blood Ur Leukocyte Esterase Urine RBC Urine WBC Urine WBC Clumps Urine Bacteria Hyaline Casts Urine Yeast (Budding) 12/30/24 11:41 WBC RBC Hgb Hct MCHC Plt Count Immature Gran # Neutrophils # Neutrophils # (Manual) Monocytes # Monocytes # (Manual) Basophils # D-Dimer ABG pCO2 ABG HCO3 ABG Total CO2 ABG O2 Saturation Hemoglobin Sodium Chloride Carbon Dioxide BUN Creatinine Glucose POC Glucose (mg/dL) 277 H Plasma Lactic Acid Zafar Phosphorus Troponin I Albumin Urine Protein Urine Glucose (UA) Urine Blood Ur Leukocyte Esterase Urine RBC Urine WBC Urine WBC Clumps Urine Bacteria Hyaline Casts Urine Yeast (Budding) - Diagnostic Findings Chest x-ray: image reviewed (As noted in HPI) Assessment and Plan Assessment: Impression: Severe sepsis Chronic cellulitis of lower extremities Suspect acute urinary tract infection Acute leukocytosis secondary to above Hypernatremia secondary to free water deficit Acute kidney injury secondary to sepsis Acute lactic acidosis secondary to sepsis Acute non-ST elevation myocardial infarction Paroxysmal atrial fibrillation Benign essential hypertension History of hypothyroidism Dyslipidemia Recommendation: Continue present supportive care measures Continue to monitor closely in the ICU Avoid nephrotoxic agents Broad-spectrum antibiotics including vancomycin and cefepime for now and adjust accordingly based on the final cultures Infectious disease consultation may also recommend wound care evaluation by wound care staff. Cooling blankets and Tylenol for fever Daily monitoring of labs including CBC Check blood cultures and urine cultures would not be surprising if the patient is found to be bacteremic Continue IV fluids and bolus accordingly patient already received 3 L of fluids for his initial presentation of sepsis Continue to monitor electrolytes and renal profile Will continue to follow. Patient is obviously critically ill. High risk for worsening, hence will keep in ICU for now Time with Patient: Greater than 30
--- NOTE | 2024-12-30 13:50 | CA ---
Transthoracic Echo Report Name: Carlos Payan Age: 74 Gender: M : 1950 Exam Date: 12/30/2024 07:51 Exam Location: [facility] Ht (in): 70 Wt (lb): 243 Ordering Physician: Danny Chavez MD Attending/Referring Phys: Pediatric Neurologist Blaire Cunningham RDCS Procedure CPT: Indications: AMI Cardiac Hx: Technical Quality: Very technically difficult study, Poor Contrast 1: Definity Total Dose (mL): 2 Contrast 2: Total Dose (mL): MEASUREMENTS (Male / Female) Normal Values 2D ECHO LVOT Diameter 2.2 cm M-MODE Aortic Root Diameter MM 3.6 cm LA Systolic Diameter MM 3.0 cm LA Ao Ratio MM 0.8 AV Cusp Separation MM 1.0 cm DOPPLER AV Peak Velocity 279.8 cm/s AV Peak Gradient 31.3 mmHg AV Mean Velocity 182.8 cm/s AV Mean Gradient 20.8 mmHg AV Velocity Time Integral 44.1 cm LVOT Peak Velocity 100.4 cm/s LVOT Peak Gradient 4.0 mmHg LVOT Velocity Time Integral 21.0 cm LVOT Stroke Volume 76.9 cm??? LVOT Stroke Volume Index 33.9 ml/m??? LVOT Cardiac Index 3531.6 cm???/min???m??? AV Area Cont Eq vti 1.7 cm??? AV Area Cont Eq pk 1.3 cm??? MV Area PHT 2.3 cm??? Mitral E Point Velocity 73.5 cm/s Mitral A Point Velocity 89.7 cm/s Mitral E to A Ratio 0.8 MV Deceleration Time 327.3 ms TR Peak Velocity 171.2 cm/s TR Peak Gradient 11.7 mmHg FINDINGS Left Ventricle Left ventricular ejection fraction is estimated at 55-60%. Normal left ventricular systolic function with no obvious regional wall motion abnormalities. Right Ventricle Right ventricle not well visualized. Unable to estimate the right ventricular systolic pressure. Right Atrium Right atrium not well visualized. Left Atrium Left atrium not well visualized. Mitral Valve Structurally normal mitral valve. Trace mitral regurgitation. No mitral stenosis. Aortic Valve Aortic valve not well visualized. Moderate aortic stenosis with a peak gradient of 31 mmHg and a mean gradient of 21 mmHg. No aortic regurgitation. Tricuspid Valve Tricuspid valve not well visualized. Pulmonic Valve Pulmonic valve not well visualized. Pericardium Echo free space anterior to the right ventricle likely represents a fat pad. No pericardial or pleural effusion. Aorta Aorta at upper limits of normal. CONCLUSIONS Technically suboptimal study secondary to poor echo windows LV function appears preserved Moderate aortic stenosis noted Previewed by: Dr. Mikel Garza MD (Electronically Signed) Final Date: 30 Dec 2024 13:49
--- NOTE | 2024-12-30 13:56 | P.NPCON ---
History of Present Illness - Reason for Consult Consult date: 12/30/24 - Chief Complaint SOB - History of Present Illness This is a 74-year-old male coming to ER from [facility]care facility for fever and shortness of breath increased work of breathing noted throughout the day with elevated temperature and patient admits to shortness of breath here in the ER. Patient is not on oxygen and felt very short of breath in ED. Was admitted to medical floor but had worsening respiratory status and was transferred to ICU this morning. Having persistent fevers. Being treated for sepsis and UTI. Seen in ICU, lethargic and sleeping. Patient is lethargic, comfortable, no acute fracture Examination of the heart S1 and S2 Examination of the lungs bilateral breath sounds are heard Abdomen is soft, dressed Examination of lower extremities shows trace edema Review of Systems Constitutional: Reports as per HPI Past Medical History Past Medical History: Atrial Fibrillation, Heart Failure, Hyperlipidemia, Hypertension, Renal Disease, Syncope Additional Past Medical History / Comment(s): anemia, UTI, Hypothyroid, depression, dysphagia History of Any Multi-Drug Resistant Organisms: None Reported Additional Past Surgical History / Comment(s): unknown Past Anesthesia/Blood Transfusion Reactions: No Reported Reaction Past Psychological History: No Psychological Hx Reported Smoking Status: Unknown if ever smoked Past Alcohol Use History: None Reported Past Drug Use History: None Reported - Past Family History Father History Unknown: Yes Mother History Unknown: Yes Medications and Allergies Home Medications Medication Instructions Recorded Confirmed Type Aspirin [[place] Aspirin EC] 81 mg PO DAILY 12/24/18 12/29/24 History Atorvastatin [Lipitor] 20 mg PO HS@199912/24/18 12/29/24 History Alfuzosin HCl [Alfuzosin HCl ER] 10 mg PO DAILY 01/13/23 12/29/24 History Budesonide/Formoterol Fumarate 2 puff INHALATION RT-BID 01/13/23 12/29/24 History [Symbicort 160-4.5 Mcg Inhaler] Cholecalciferol [Vitamin D3 (25 75 mcg PO DAILY 01/13/23 12/29/24 History Mcg = 1000 Iu)] Ferrous Sulfate [Iron (65 MG 325 mg PO HS 01/13/23 12/29/24 History Elemental)] Lactulose 20 gm PO DAILY 01/13/23 12/29/24 History Magnesium Oxide [Magox 400] 400 mg PO HS 01/13/23 12/29/24 History Melatonin 3 mg PO HS 01/13/23 12/29/24 History allopurinoL [Zyloprim] 100 mg PO DAILY 01/13/23 12/29/24 History Brimonidine Tartrate [Alphagan P 1 drop BOTH EYES TID@0700,1300,1900 12/29/24 12/29/24 History 0.15% Ophth Soln] DULoxetine HCL [Cymbalta] 60 mg PO DAILY@0700 12/29/24 12/29/24 History Divalproex Sprinkle [Depakote 125 mg PO BID@0700,1600 12/29/24 12/29/24 History Sprinkle] Docusate [Colace] 100 mg PO BID 12/29/24 12/29/24 History Furosemide [Lasix] 40 mg PO BID@0700,1600 12/29/24 12/29/24 History Gabapentin [Neurontin] 300 mg PO TID@0700,1300,189912/29/24 12/29/24 History Icy Hot Advanced Relief 7.5% Patch 1 patch TRANSDERM DAILY@0700 12/29/24 12/29/24 History Ipratropium-Albuterol Nebulize 3 ml INHALATION RT-Q4H PRN 12/29/24 12/29/24 History [Duoneb 0.5 mg-3 mg/3 ml Soln] Ipratropium-Albuterol Nebulize 3 ml INHALATION RT-Q8H PRN 12/29/24 12/29/24 History [Duoneb 0.5 mg-3 mg/3 ml Soln] Levothyroxine Sodium [Synthroid] 88 mcg PO DAILY@0500 12/29/24 12/29/24 History Montelukast [Singulair] 10 mg PO HS@189912/29/24 12/29/24 History Naloxone HCl 0.4 mg SQ DIRECTED PRN 12/29/24 12/29/24 History Naloxone HCl 4 mg NASAL DIRECTED PRN 12/29/24 12/29/24 History metFORMIN HCL [Glucophage] 500 mg PO BID@0700,1600 12/29/24 12/29/24 History oxyCODONE-APAP 10-325MG [Percocet 1 tab PO Q4H 12/29/24 12/29/24 History 10-325 mg] tea tree oiL [Tea Tree Oil] 1 applic TOPICAL HS 12/29/24 12/29/24 History Allergies Allergy/AdvReac Type Severity Reaction Status Date / Time No Known Allergies Allergy Verified 12/29/24 19:42 Physical Exam Vitals: Vital Signs Temp Pulse Pulse Resp BP BP Pulse Ox 12/30/24 11:00 100.0 F H 104 H 21 110/55 96 12/30/24 10:30 100 21 113/56 96 12/30/24 10:00 101.1 F H 101 H 23 112/57 95 12/30/24 09:30 107 H 21 142/73 96 12/30/24 09:13 104 H 12/30/24 09:00 103 H 14 126/70 98 12/30/24 08:58 97 12/30/24 08:30 103.0 F H 105 H 23 136/71 97 12/30/24 08:22 109 H 22 136/71 12/30/24 08:00 99 20 144/73 94 L 12/30/24 07:48 102.0 F H 103 H 22 115/68 93 L 12/30/24 05:16 100.9 F H 12/30/24 04:00 102.6 F H 101 H 22 128/61 93 L 12/30/24 02:00 105 H 22 12/30/24 00:03 100.6 F H 109 H 22 101/65 96 12/29/24 23:30 99.4 F 109 H 24 146/85 99 12/29/24 22:00 110 H 24 139/76 98 12/29/24 21:00 111 H 24 132/74 97 12/29/24 20:00 112 H 24 104/72 98 12/29/24 18:05 118 H 24 153/84 97 12/29/24 17:56 111 H 18 12/29/24 17:50 118 H 16 12/29/24 16:36 96 12/29/24 16:33 99.3 F 124 H 30 H 143/85 98 Intake and Output 12/29/24 12/30/24 12/30/24 22:59 06:59 14:59 Intake Total 10 1035 Output Total 200 500 Balance -190 535 Intake: IV 10 10 Invasive Line 1 10 10 Intake, IV Titration 1025 Amount ACETAMINOPHEN IV (For NPO 100 ) 1,000 mg In Empty Bag 1 bag @ 400 mls/hr IVPB ONCE STA Rx#:[id number] Cefepime 2 gm In Dextrose 100 5% in Water 100 ml @ 25 mls/hr IVPB Q8HR [facility] Rx#: [id number] Dextrose 5% in Water 1, 225 000 ml @ 75 mls/hr IV . [id number] [facility] Rx#:[id number] Vancomycin 1,750 mg In 500 Sodium Chloride 0.9% 500 ml 500 ml @ 167 mls/hr IVPB ONCE ONE Rx#: [id number] cefTRIAXone 1 gm In 100 Sodium Chloride 0.9% 50 ml @ 100 mls/hr IVPB Q24HR [facility] Rx#:[id number] Output: Urine 200 500 Other: Voiding Method External Catheter Indwelling Catheter Weight 110.677 kg 110.5 kg Results - Lab Results Most recent lab results ABG pH 7.37 (7.35-7.45) 12/30/24 08:47 ABG pCO2 46 mmHg (35-45) H 12/30/24 08:47 ABG pO2 90 mmHg (83-108) 12/30/24 08:47 ABG HCO3 27 mmol/L (21-25) H 12/30/24 08:47 ABG O2 Saturation 97.1 % (94-97) H 12/30/24 08:47 Calcium 9.1 mg/dL (8.4-10.2) 12/30/24 04:00 Phosphorus 2.4 mg/dL (2.5-4.5) L 12/30/24 04:00 Magnesium 2.0 mg/dL (1.6-2.3) 12/30/24 04:00 12/30/24 04:00 12/30/24 04:00 Assessment and Plan Assessment: 1. Non-oliguric SIMRAN 2/2 Septic ATN. Baseline creatinine 1.2, presented creatinine 2.1, worsening 2.4. UA concerning for UTI. 2. Hypernatremia, related to poor intake. Na currently 151 3. Sepsis with UTI and LE Cellulitis 4. HTN Plan: Continue IVF, currently on D5W due to high sodium Urine output remains good Await cultures, not requiring pressors at this time Supportive care, daily BMP, strict I/O's ABX
--- NOTE | 2024-12-30 14:02 | P.HPIM ---
History of Present Illness H&P Date: 12/30/24 History of present illness; patient 74-year-old gentleman with past medical history significant for COPD, atrial fibrillation hyperlipidemia, history of cellulitis of lower extremities who is currently resident of [facility] presents the ER for shortness of breath and fever. According to EMR, patient has been having increasing shortness of breath for the last day, patient also having fevers with Tmax 102.6. There is no complaint of chills. There is no complaint of chest pain. There was no complaint of orthopnea or PND. Patient has chronic erythema a of lower extremities.Initial lab work done in the ER showed WBC 27.73, hemoglobin 13.2, platelet count 451, D-dimer 1.59, sodium 148, potassium 4.8, BUN 58, creatinine 2.08, lactate 3.3, troponin 0.052 Influenza A not detected Influenza B not detected RSV not detected COVID-19 not detected EKG done in the ER showed heart rate of 12, ST depression in lead I and aVL, no T-wave inversions seen. Chest x-ray done in the ER showed no acute cardiopulmonary process Patient admitted to internal medicine service, patient was initially admitted to general medical floor but later transferred to ICU REVIEW OF SYSTEMS: CONSTITUTIONAL: As mentioned above HEENT: No recent visual problems or hearing problems. Denied any sore throat. CARDIOVASCULAR: No chest pain, orthopnea, PND, no palpitations, no syncope. PULMONARY: As mentioned GASTROINTESTINAL: No diarrhea, no nausea, no vomiting, no abdominal pain. NEUROLOGICAL: No headaches, no weakness, no numbness. HEMATOLOGICAL: Denies any bleeding or petechiae. GENITOURINARY: Denies any burning micturition, frequency, or urgency. MUSCULOSKELETAL/RHEUMATOLOGICAL: Denies any joint pain, swelling, or any muscle pain. ENDOCRINE: Denies any polyuria or polydipsia. The rest of the 14-point review of systems is negative. PHYSICAL EXAMINATION: GENERAL: The patient is alert, ill looking HEENT: Pupils are round and equally reacting to light. EOMI. No scleral icterus. No conjunctival pallor. Normocephalic, atraumatic. No pharyngeal erythema. No thyromegaly. CARDIOVASCULAR: S1 and S2 present. No murmurs, rubs, or gallops. PULMONARY: Chest is clear to auscultation, no wheezing or crackles. ABDOMEN: Soft, nontender, nondistended, normoactive bowel sounds. No palpable organomegaly. MUSCULOSKELETAL: Bandage of lower extremities EXTREMITIES: No cyanosis, clubbing, or pedal edema. NEUROLOGICAL: Gross neurological examination did not reveal any focal deficits. SKIN: No rashes. Assessment and plan Sepsis UTI Cellulitis of left lower extremity SIMRAN on CKD Elevated troponin, likely secondary to sepsis and SIMRAN Elevated D-Dimer, likely due to sepsis History of HFpEF, last known EF 55-60% in 2019 Hypertension Hyperlipidemia Hypothyroidism Hypernatremia Monitor vital signs Monitor CBC Monitor CMP Continue telemetry monitoring Ordered blood cultures ordered urine cultures ordered wound care Order cefepime, vancomycin Ordered strict I's and O's, daily weights Order ultrasound of kidneys Ordered 2D echo Consult ID Consult nephrology Consult cardiology Critical care consulted Labs and medication were reviewed.. Continue same treatment. Continue with symptomatic treatment. Resume home medication. Monitor labs and vitals. DVT and GI prophylaxis. Further recommendations as per clinical course of the patient Dictation was produced using [employer] - [employer] dictation software. please excuse any grammatical, word or spelling errors. Past Medical History Past Medical History: Atrial Fibrillation, Heart Failure, Hyperlipidemia, Hypertension, Renal Disease, Syncope Additional Past Medical History / Comment(s): anemia, UTI, Hypothyroid, depression, dysphagia History of Any Multi-Drug Resistant Organisms: None Reported Additional Past Surgical History / Comment(s): unknown Past Anesthesia/Blood Transfusion Reactions: No Reported Reaction Past Psychological History: No Psychological Hx Reported Smoking Status: Unknown if ever smoked Past Alcohol Use History: None Reported Past Drug Use History: None Reported - Past Family History Father History Unknown: Yes Mother History Unknown: Yes Medications and Allergies Home Medications Medication Instructions Recorded Confirmed Type Aspirin [[place] Aspirin EC] 81 mg PO DAILY 12/24/18 12/29/24 History Atorvastatin [Lipitor] 20 mg PO HS@199912/24/18 12/29/24 History Alfuzosin HCl [Alfuzosin HCl ER] 10 mg PO DAILY 01/13/23 12/29/24 History Budesonide/Formoterol Fumarate 2 puff INHALATION RT-BID 01/13/23 12/29/24 History [Symbicort 160-4.5 Mcg Inhaler] Cholecalciferol [Vitamin D3 (25 75 mcg PO DAILY 01/13/23 12/29/24 History Mcg = 1000 Iu)] Ferrous Sulfate [Iron (65 MG 325 mg PO HS 01/13/23 12/29/24 History Elemental)] Lactulose 20 gm PO DAILY 01/13/23 12/29/24 History Magnesium Oxide [Magox 400] 400 mg PO HS 01/13/23 12/29/24 History Melatonin 3 mg PO HS 01/13/23 12/29/24 History allopurinoL [Zyloprim] 100 mg PO DAILY 01/13/23 12/29/24 History Brimonidine Tartrate [Alphagan P 1 drop BOTH EYES TID@0700,1300,1900 12/29/24 12/29/24 History 0.15% Ophth Soln] DULoxetine HCL [Cymbalta] 60 mg PO DAILY@0712/29/24 12/29/24 History Divalproex Sprinkle [Depakote 125 mg PO BID@0700,1600 12/29/24 12/29/24 History Sprinkle] Docusate [Colace] 100 mg PO BID 12/29/24 12/29/24 History Furosemide [Lasix] 40 mg PO BID@0700,1600 12/29/24 12/29/24 History Gabapentin [Neurontin] 300 mg PO TID@0700,1300,0 12/29/24 12/29/24 History Icy Hot Advanced Relief 7.5% Patch 1 patch TRANSDERM DAILY@0712/29/24 12/29/24 History Ipratropium-Albuterol Nebulize 3 ml INHALATION RT-Q4H PRN 12/29/24 12/29/24 History [Duoneb 0.5 mg-3 mg/3 ml Soln] Ipratropium-Albuterol Nebulize 3 ml INHALATION RT-Q8H PRN 12/29/24 12/29/24 History [Duoneb 0.5 mg-3 mg/3 ml Soln] Levothyroxine Sodium [Synthroid] 88 mcg PO DAILY@05012/29/24 12/29/24 History Montelukast [Singulair] 10 mg PO HS@189912/29/24 12/29/24 History Naloxone HCl 0.4 mg SQ DIRECTED PRN 12/29/24 12/29/24 History Naloxone HCl 4 mg NASAL DIRECTED PRN 12/29/24 12/29/24 History metFORMIN HCL [Glucophage] 500 mg PO BID@0700,1600 12/29/24 12/29/24 History oxyCODONE-APAP 10-325MG [Percocet 1 tab PO Q4H 12/29/24 12/29/24 History 10-325 mg] tea tree oiL [Tea Tree Oil] 1 applic TOPICAL HS 12/29/24 12/29/24 History Allergies Allergy/AdvReac Type Severity Reaction Status Date / Time No Known Allergies Allergy Verified 12/29/24 19:42 Physical Exam Vitals: Vital Signs Temp Pulse Pulse Resp BP BP Pulse Ox 12/30/24 13:00 96 20 124/65 97 12/30/24 12:30 98 18 121/83 97 12/30/24 12:00 99.6 F 100 24 121/87 12/30/24 11:30 90 19 106/55 98 12/30/24 11:00 100.0 F H 104 H 21 110/55 96 12/30/24 10:30 100 21 113/56 96 12/30/24 10:00 101.1 F H 101 H 23 112/57 95 12/30/24 09:30 107 H 21 142/73 96 12/30/24 09:13 104 H 12/30/24 09:00 103 H 14 126/70 98 12/30/24 08:58 97 12/30/24 08:30 103.0 F H 105 H 23 136/71 97 12/30/24 08:22 109 H 22 136/71 12/30/24 08:00 99 20 144/73 94 L 12/30/24 07:48 102.0 F H 103 H 22 115/68 93 L 12/30/24 05:16 100.9 F H 12/30/24 04:00 102.6 F H 101 H 22 128/61 93 L 12/30/24 02:00 105 H 22 12/30/24 00:03 100.6 F H 109 H 22 101/65 96 12/29/24 23:30 99.4 F 109 H 24 146/85 99 12/29/24 22:00 110 H 24 139/76 98 12/29/24 21:00 111 H 24 132/74 97 12/29/24 20:00 112 H 24 104/72 98 12/29/24 18:05 118 H 24 153/84 97 12/29/24 17:56 111 H 18 12/29/24 17:50 118 H 16 12/29/24 16:36 96 12/29/24 16:33 99.3 F 124 H 30 H 143/85 98 Intake and Output 12/29/24 12/30/24 12/30/24 22:59 06:59 14:59 Intake Total 10 1195 Output Total 200 565 Balance -190 630 Intake: IV 10 20 Invasive Line 1 10 20 Intake, IV Titration 1175 Amount ACETAMINOPHEN IV (For NPO 100 ) 1,000 mg In Empty Bag 1 bag @ 400 mls/hr IVPB ONCE STA Rx#:[id number] Cefepime 2 gm In Dextrose 100 5% in Water 100 ml @ 25 mls/hr IVPB Q8HR [facility] Rx#: [id number] Dextrose 5% in Water 1, 375 000 ml @ 75 mls/hr IV . [id number] [facility] Rx#:[id number] Vancomycin 1,750 mg In 500 Sodium Chloride 0.9% 500 ml 500 ml @ 167 mls/hr IVPB ONCE ONE Rx#: [id number] cefTRIAXone 1 gm In 100 Sodium Chloride 0.9% 50 ml @ 100 mls/hr IVPB Q24HR [facility] Rx#:[id number] Output: Urine 200 565 Other: Voiding Method External Catheter Indwelling Catheter Weight 110.677 kg 110.5 kg Results CBC & Chem 7: 12/30/24 04:00 12/30/24 04:00 Labs: Abnormal Lab Results - Last 24 Hours (Table) 12/29/24 12/29/24 12/29/24 Range/Units 17:09 17:09 17:09 WBC 27.73 H (4.50-10.00) 10*3/uL RBC (4.40-5.60) 10*6/uL Hgb (13.0-17.0) g/dL Hct (39.6-50.0) % MCHC 31.0 L (32.0-37.0) g/dL Plt Count 451 H (140-440) 10*3/uL Immature Gran # 0.45 H (0.00-0.04) 10*3/uL Neutrophils # 24.94 H (1.80-7.70) 10*3/uL Neutrophils # (Manual) (1.3-7.7) k/uL Monocytes # 1.04 H (0.20-1.00) 10*3/uL Monocytes # (Manual) (0-1.0) k/uL Basophils # 0.11 H (0.00-0.10) 10*3/uL D-Dimer 1.59 H (<0.60) mg/L FEU ABG pCO2 (35-45) mmHg ABG HCO3 (21-25) mmol/L ABG Total CO2 (19-24) mmol/L ABG O2 Saturation (94-97) % Hemoglobin (13.0-17.5) gm/dL Sodium (137-145) mmol/L Chloride (98-107) mmol/L Carbon Dioxide (22-30) mmol/L BUN (9-20) mg/dL Creatinine (0.66-1.25) mg/dL Glucose (74-99) mg/dL POC Glucose (mg/dL) (70-110) mg/dL Plasma Lactic Acid Zafar 3.3 H* (0.7-2.0) mmol/L Phosphorus (2.5-4.5) mg/dL Troponin I (0.000-0.034) ng/mL Albumin (3.5-5.0) g/dL Urine Protein (Negative) Urine Glucose (UA) (Negative) Urine Blood (Negative) Ur Leukocyte Esterase (Negative) Urine RBC (0-5) /hpf Urine WBC (0-5) /hpf Urine WBC Clumps (None) /hpf Urine Bacteria (None) /hpf Hyaline Casts (0-2) /lpf Urine Yeast (Budding) (None) /hpf 12/29/24 12/29/24 12/29/24 Range/Units 17:24 17:24 19:55 WBC (4.50-10.00) 10*3/uL RBC (4.40-5.60) 10*6/uL Hgb (13.0-17.0) g/dL Hct (39.6-50.0) % MCHC (32.0-37.0) g/dL Plt Count (140-440) 10*3/uL Immature Gran # (0.00-0.04) 10*3/uL Neutrophils # (1.80-7.70) 10*3/uL Neutrophils # (Manual) (1.3-7.7) k/uL Monocytes # (0.20-1.00) 10*3/uL Monocytes # (Manual) (0-1.0) k/uL Basophils # (0.00-0.10) 10*3/uL D-Dimer (<0.60) mg/L FEU ABG pCO2 (35-45) mmHg ABG HCO3 (21-25) mmol/L ABG Total CO2 (19-24) mmol/L ABG O2 Saturation (94-97) % Hemoglobin (13.0-17.5) gm/dL Sodium 148 H (137-145) mmol/L Chloride 114 H (98-107) mmol/L Carbon Dioxide 21 L (22-30) mmol/L BUN 58 H (9-20) mg/dL Creatinine 2.08 H (0.66-1.25) mg/dL Glucose 271 H (74-99) mg/dL POC Glucose (mg/dL) (70-110) mg/dL Plasma Lactic Acid Zafar 3.5 H* (0.7-2.0) mmol/L Phosphorus (2.5-4.5) mg/dL Troponin I 0.052 H* (0.000-0.034) ng/mL Albumin (3.5-5.0) g/dL Urine Protein (Negative) Urine Glucose (UA) (Negative) Urine Blood (Negative) Ur Leukocyte Esterase (Negative) Urine RBC (0-5) /hpf Urine WBC (0-5) /hpf Urine WBC Clumps (None) /hpf Urine Bacteria (None) /hpf Hyaline Casts (0-2) /lpf Urine Yeast (Budding) (None) /hpf 12/29/24 12/30/24 12/30/24 Range/Units 21:13 02:00 04:00 WBC 20.07 H (4.50-10.00) 10*3/uL RBC 3.97 L (4.40-5.60) 10*6/uL Hgb 11.4 L (13.0-17.0) g/dL Hct 36.4 L (39.6-50.0) % MCHC 31.3 L (32.0-37.0) g/dL Plt Count (140-440) 10*3/uL Immature Gran # 0.14 H (0.00-0.04) 10*3/uL Neutrophils # (1.80-7.70) 10*3/uL Neutrophils # (Manual) 16.05 H (1.3-7.7) k/uL Monocytes # (0.20-1.00) 10*3/uL Monocytes # (Manual) 1.20 H (0-1.0) k/uL Basophils # (0.00-0.10) 10*3/uL D-Dimer (<0.60) mg/L FEU ABG pCO2 (35-45) mmHg ABG HCO3 (21-25) mmol/L ABG Total CO2 (19-24) mmol/L ABG O2 Saturation (94-97) % Hemoglobin (13.0-17.5) gm/dL Sodium (137-145) mmol/L Chloride (98-107) mmol/L Carbon Dioxide (22-30) mmol/L BUN (9-20) mg/dL Creatinine (0.66-1.25) mg/dL Glucose (74-99) mg/dL POC Glucose (mg/dL) (70-110) mg/dL Plasma Lactic Acid Zafar (0.7-2.0) mmol/L Phosphorus (2.5-4.5) mg/dL Troponin I 0.077 H* (0.000-0.034) ng/mL Albumin (3.5-5.0) g/dL Urine Protein 1+ H (Negative) Urine Glucose (UA) Trace H (Negative) Urine Blood Large H (Negative) Ur Leukocyte Esterase Large H (Negative) Urine RBC 53 H (0-5) /hpf Urine WBC 127 H (0-5) /hpf Urine WBC Clumps Rare H (None) /hpf Urine Bacteria Rare H (None) /hpf Hyaline Casts 4 H (0-2) /lpf Urine Yeast (Budding) Few H (None) /hpf 12/30/24 12/30/24 12/30/24 Range/Units 04:00 04:00 04:00 WBC (4.50-10.00) 10*3/uL RBC (4.40-5.60) 10*6/uL Hgb (13.0-17.0) g/dL Hct (39.6-50.0) % MCHC (32.0-37.0) g/dL Plt Count (140-440) 10*3/uL Immature Gran # (0.00-0.04) 10*3/uL Neutrophils # (1.80-7.70) 10*3/uL Neutrophils # (Manual) (1.3-7.7) k/uL Monocytes # (0.20-1.00) 10*3/uL Monocytes # (Manual) (0-1.0) k/uL Basophils # (0.00-0.10) 10*3/uL D-Dimer (<0.60) mg/L FEU ABG pCO2 (35-45) mmHg ABG HCO3 (21-25) mmol/L ABG Total CO2 (19-24) mmol/L ABG O2 Saturation (94-97) % Hemoglobin (13.0-17.5) gm/dL Sodium 151 H (137-145) mmol/L Chloride 115 H (98-107) mmol/L Carbon Dioxide (22-30) mmol/L BUN 62 H (9-20) mg/dL Creatinine 2.37 H (0.66-1.25) mg/dL Glucose 286 H (74-99) mg/dL POC Glucose (mg/dL) (70-110) mg/dL Plasma Lactic Acid Zafar 2.3 H* (0.7-2.0) mmol/L Phosphorus 2.4 L (2.5-4.5) mg/dL Troponin I 0.088 H* (0.000-0.034) ng/mL Albumin 3.2 L (3.5-5.0) g/dL Urine Protein (Negative) Urine Glucose (UA) (Negative) Urine Blood (Negative) Ur Leukocyte Esterase (Negative) Urine RBC (0-5) /hpf Urine WBC (0-5) /hpf Urine WBC Clumps (None) /hpf Urine Bacteria (None) /hpf Hyaline Casts (0-2) /lpf Urine Yeast (Budding) (None) /hpf 12/30/24 12/30/24 12/30/24 Range/Units 06:22 07:26 08:47 WBC (4.50-10.00) 10*3/uL RBC (4.40-5.60) 10*6/uL Hgb (13.0-17.0) g/dL Hct (39.6-50.0) % MCHC (32.0-37.0) g/dL Plt Count (140-440) 10*3/uL Immature Gran # (0.00-0.04) 10*3/uL Neutrophils # (1.80-7.70) 10*3/uL Neutrophils # (Manual) (1.3-7.7) k/uL Monocytes # (0.20-1.00) 10*3/uL Monocytes # (Manual) (0-1.0) k/uL Basophils # (0.00-0.10) 10*3/uL D-Dimer (<0.60) mg/L FEU ABG pCO2 46 H (35-45) mmHg ABG HCO3 27 H (21-25) mmol/L ABG Total CO2 28 H (19-24) mmol/L ABG O2 Saturation 97.1 H (94-97) % Hemoglobin 12.1 L (13.0-17.5) gm/dL Sodium (137-145) mmol/L Chloride (98-107) mmol/L Carbon Dioxide (22-30) mmol/L BUN (9-20) mg/dL Creatinine (0.66-1.25) mg/dL Glucose (74-99) mg/dL POC Glucose (mg/dL) 263 H 256 H (70-110) mg/dL Plasma Lactic Acid Zafar (0.7-2.0) mmol/L Phosphorus (2.5-4.5) mg/dL Troponin I (0.000-0.034) ng/mL Albumin (3.5-5.0) g/dL Urine Protein (Negative) Urine Glucose (UA) (Negative) Urine Blood (Negative) Ur Leukocyte Esterase (Negative) Urine RBC (0-5) /hpf Urine WBC (0-5) /hpf Urine WBC Clumps (None) /hpf Urine Bacteria (None) /hpf Hyaline Casts (0-2) /lpf Urine Yeast (Budding) (None) /hpf 12/30/24 Range/Units 11:41 WBC (4.50-10.00) 10*3/uL RBC (4.40-5.60) 10*6/uL Hgb (13.0-17.0) g/dL Hct (39.6-50.0) % MCHC (32.0-37.0) g/dL Plt Count (140-440) 10*3/uL Immature Gran # (0.00-0.04) 10*3/uL Neutrophils # (1.80-7.70) 10*3/uL Neutrophils # (Manual) (1.3-7.7) k/uL Monocytes # (0.20-1.00) 10*3/uL Monocytes # (Manual) (0-1.0) k/uL Basophils # (0.00-0.10) 10*3/uL D-Dimer (<0.60) mg/L FEU ABG pCO2 (35-45) mmHg ABG HCO3 (21-25) mmol/L ABG Total CO2 (19-24) mmol/L ABG O2 Saturation (94-97) % Hemoglobin (13.0-17.5) gm/dL Sodium (137-145) mmol/L Chloride (98-107) mmol/L Carbon Dioxide (22-30) mmol/L BUN (9-20) mg/dL Creatinine (0.66-1.25) mg/dL Glucose (74-99) mg/dL POC Glucose (mg/dL) 277 H (70-110) mg/dL Plasma Lactic Acid Zafar (0.7-2.0) mmol/L Phosphorus (2.5-4.5) mg/dL Troponin I (0.000-0.034) ng/mL Albumin (3.5-5.0) g/dL Urine Protein (Negative) Urine Glucose (UA) (Negative) Urine Blood (Negative) Ur Leukocyte Esterase (Negative) Urine RBC (0-5) /hpf Urine WBC (0-5) /hpf Urine WBC Clumps (None) /hpf Urine Bacteria (None) /hpf Hyaline Casts (0-2) /lpf Urine Yeast (Budding) (None) /hpf Thrombosis Risk Factor Assmnt - Choose All That Apply Any of the Below Risk Factors Present?: No Other Risk Factors: Yes Each Risk Factor Represents 2 Points: Age 61-74 years Other congenital or acquired thrombophilia - If yes, enter type in comment: No Thrombosis Risk Factor Assessment Total Risk Factor Score: 2 Thrombosis Risk Factor Assessment Level: Low Risk
[2024-12-30 17:14] LABS: Glucose,Whole Blood 191 mg/dL (70-110)
[2024-12-30] MEDS: ACETAMINOPHEN IV (For NPO) 1,000 MG in EMPTY BAG 1 BAG IVPB SCH (17:48)
--- NOTE | 2024-12-30 18:32 | US ---
EXAMINATION TYPE: US kidneys/renal and bladder DATE OF EXAM: 12/30/2024 COMPARISON: 01/14/23 CLINICAL INDICATION: Male, 74 years old with history of Martha; martha TECHNIQUE: Grayscale imaging of the bilateral kidneys and urinary bladder: Limited exam due to ICU patient unable to roll FINDINGS: EXAM MEASUREMENTS: Right Kidney: 12.9 x 6.9 x 6.5 cm Left Kidney: 14.6 x 5.9 x 5.3 cm Right Kidney: No hydronephrosis or masses seen Left Kidney: No hydronephrosis or masses seen Bladder: contracted due to roberts Bilateral Jets seen: n/a There is no evidence for hydronephrosis at this point in time. No nephrolithiasis is seen. No edin s are identified. The urinary bladder is nondistended. IMPRESSION: 1. No evidence for obstructive uropathy or renal calculus. 2. Roberts catheter in place. [facility], , 12/30/2024 6:29 PM
[2024-12-30 19:57] LABS: Glucose,Whole Blood 162 mg/dL (70-110)
[2024-12-30] MEDS: MONTELUKAST 10 MG TAB PO SCH (20:06)
[2024-12-30] MEDS: ATORVASTATIN 20 MG TAB PO SCH (20:06)
[2024-12-30] MEDS: MELATONIN 3 MG TABLET PO SCH (20:06)
[2024-12-30] MEDS: FERROUS SULFATE 325 MG TAB PO SCH (20:06)
[2024-12-30] MEDS: MAGNESIUM OXIDE 400 MG TAB PO SCH (20:06)
[2024-12-30] MEDS: IBUPROFEN 400 MG TAB PO PRN (20:13)
[2024-12-30 21:36] LABS: Glucose,Whole Blood 178 mg/dL (70-110)
--- NOTE | 2024-12-31 05:45 | XR ---
EXAMINATION TYPE: XR chest 1V portable DATE OF EXAM: 12/31/2024 CLINICAL INDICATION: Male, 74 years old with history of ICU, progress study. TECHNIQUE: Single AP portable semiupright view of the chest is obtained. COMPARISON: Chest x-ray from one day earlier and older studies. FINDINGS: Cardiac silhouette size is stable and upper limits of normal with atherosclerotic aorta re demonstrated. Increased interstitial markings bilaterally redemonstrated. No new focal airspace opaci ty, pleural effusion, or pneumothorax seen bilaterally. Osseous structures are intact. IMPRESSION: No new acute pulmonary process. [facility], , 12/31/2024 5:43 AM
[2024-12-31 05:56] LABS: HGB 11.2 g/dL (13.0-17.0); MCHC 30.3 g/dL (32.0-37.0); MCV 95.9 fL (80.0-97.0); Mean Platelet Volume 10.9 fL (9.5-12.2); Platelet Count 314 10*3/uL (140-440); RBC 3.86 10*6/uL (4.40-5.60); RDW 16.8 % (11.5-14.5); WBC 25.99 10*3/uL (4.50-10.00)
[2024-12-31 06:11] LABS: African American GFR (CKD) 21 (>60 ml/min/1.73 sqM); Anion Gap 12 mmol/L; Blood Urea Nitrogen 77 mg/dL (9-20); Calcium 8.6 mg/dL (8.4-10.2); Carbon Dioxide 24 mmol/L (22-30); Chloride 105 mmol/L (98-107); Glucose 224 mg/dL (74-99); Magnesium 2.2 mg/dL (1.6-2.3); Non-African American GFR(CKD) 18 (>60 ml/min/1.73 sqM); Potassium 4.2 mmol/L (3.5-5.1); Sodium 141 mmol/L (137-145)
[2024-12-31 06:32] LABS: Glucose,Whole Blood 194 mg/dL (70-110)
[2024-12-31] MEDS: VANCOMYCIN 1,750 MG in SODIUM CHLORIDE 0.9% 500 ML 500 ML IVPB ONE (08:12)
[2024-12-31 11:16] LABS: Glucose,Whole Blood 249 mg/dL (70-110)
[2024-12-31] MEDS: IPRATROPIUM-ALBUTEROL 3 ML NEB INHALATION SCH (12:00)
[2024-12-31] MEDS ORDERED: IPRATROPIUM-ALBUTEROL 3 ML NEB INHALATION SCH (12:00)
--- NOTE | 2024-12-31 12:24 | P.PN ---
Subjective Progress Note Date: 12/31/24 Patient seen in follow-up for SIMRAN. More awake today and eating meal per nursing. Patient is awake, NAD Examination of the heart S1 and S2 Examination of the lungs bilateral breath sounds are heard Abdomen is soft, non-tender Examination of lower extremities shows trace edema Objective - Vital Signs Vital signs: Vital Signs Temp 98.0 F 12/31/24 09:00 Pulse 77 12/31/24 09:00 Resp 17 12/31/24 09:00 BP 107/61 12/31/24 09:00 Pulse Ox 100 12/31/24 09:00 FiO2 Intake & Output 12/30/24 12/31/24 12/31/24 18:59 06:59 18:59 Intake Total 1780 2980 1785 Output Total 800 430 180 Balance 980 2550 1605 Weight 113.8 kg Intake: IV 30 90 30 Invasive Line 1 30 30 KVO 60 30 Intake, IV Titration 1750 1200 1225 Amount ACETAMINOPHEN IV (For NPO 100 ) 1,000 mg In Empty Bag 1 bag @ 400 mls/hr IVPB ONCE STA Rx#:[id number] ACETAMINOPHEN IV (For NPO 100 200 ) 1,000 mg In Empty Bag 1 bag @ 400 mls/hr IVPB Q6HR [facility] Rx#:[id number] Cefepime 2 gm In Dextrose 100 5% in Water 100 ml @ 25 mls/hr IVPB Q12H [facility] Rx#: [id number] Cefepime 2 gm In Dextrose 200 5% in Water 100 ml @ 25 mls/hr IVPB Q8HR [facility] Rx#: [id number] Dextrose 5% in Water 1, 750 900 225 000 ml @ 75 mls/hr IV . [id number] [facility] Rx#:[id number] Vancomycin 1,750 mg In 500 500 Sodium Chloride 0.9% 500 ml 500 ml @ 167 mls/hr IVPB ONCE ONE Rx#: [id number] Vancomycin 1,750 mg In 500 Sodium Chloride 0.9% 500 ml 500 ml @ 167 mls/hr IVPB ONCE ONE Rx#: [id number] cefTRIAXone 1 gm In 100 Sodium Chloride 0.9% 50 ml @ 100 mls/hr IVPB Q24HR [facility] Rx#:[id number] Oral 1690 530 Output: Urine 800 430 180 Other: Voiding Method Indwelling Catheter Indwelling Catheter Indwelling Catheter - Labs CBC & Chem 7: 12/31/24 05:32 12/31/24 05:44 Labs: Abnormal Lab Results - Last 24 Hours (Table) 12/30/24 12/30/24 12/30/24 Range/Units 11:41 17:13 19:55 WBC (4.50-10.00) 10*3/uL RBC (4.40-5.60) 10*6/uL Hgb (13.0-17.0) g/dL Hct (39.6-50.0) % MCHC (32.0-37.0) g/dL BUN (9-20) mg/dL Creatinine (0.66-1.25) mg/dL Glucose (74-99) mg/dL POC Glucose (mg/dL) 277 H 191 H 162 H (70-110) mg/dL Hemoglobin A1c (<=6.0) % 12/30/24 12/31/24 12/31/24 Range/Units 21:35 05:32 05:44 WBC 25.99 H (4.50-10.00) 10*3/uL RBC 3.86 L (4.40-5.60) 10*6/uL Hgb 11.2 L (13.0-17.0) g/dL Hct 37.0 L (39.6-50.0) % MCHC 30.3 L (32.0-37.0) g/dL BUN (9-20) mg/dL Creatinine (0.66-1.25) mg/dL Glucose (74-99) mg/dL POC Glucose (mg/dL) 178 H (70-110) mg/dL Hemoglobin A1c 9.4 H (<=6.0) % 12/31/24 12/31/24 Range/Units 05:44 06:28 WBC (4.50-10.00) 10*3/uL RBC (4.40-5.60) 10*6/uL Hgb (13.0-17.0) g/dL Hct (39.6-50.0) % MCHC (32.0-37.0) g/dL BUN 77 H (9-20) mg/dL Creatinine 3.22 H (0.66-1.25) mg/dL Glucose 224 H (74-99) mg/dL POC Glucose (mg/dL) 194 H (70-110) mg/dL Hemoglobin A1c (<=6.0) % Microbiology - Last 24 Hours (Table) 12/30/24 02:00 Urine Culture - Final Urine,Voided 12/29/24 21:13 Blood Culture - Preliminary Blood Assessment and Plan Assessment: 1. Non-oliguric SIMRAN 2/2 Septic ATN. Baseline creatinine 1.2, presented creatinine 2.1, worsening to 3.2 today, UA concerning for UTI. 2. Hypernatremia, related to poor intake. Na 151, improved to 141 3. Sepsis with UTI and LE Cellulitis 4. HTN Plan: Continue IVF, change to LR 75cc/hr Urine output remains good Await cultures, not requiring pressors at this time Supportive care, daily BMP, strict I/O's No indications for HD at this time
[2024-12-31] MEDS: LACTATED RINGERS 1,000 ML IV SCH (12:36)
--- NOTE | 2024-12-31 12:39 | P.PN ---
Subjective Progress Note Date: 12/31/24 Principal diagnosis: Severe sepsis with chronic cellulitis of lower extremities This is a 74-year-old white male with history of chronic cellulitis of lower extremities, patient has not been seeking any medical attention or care to his cellulitis, patient [facility] mostly with symptoms of fever shortness of breath, increased work of breathing and he had a temperature as high as 102.6 upon his initial evaluation in the ER. Workup in the ER included CBC which showed leukocytosis with WBC count of 27.7, hemoglobin 13.2 89.9% neutrophilia, slightly elevated D-dimer 1.59 hypernatremia with sodium of 148 bicarb 21 BUN is 58 creatinine 2.08, elevated lactic acid of 3.5 elevated troponin of 0.077, and abnormal urinalysis showing pyuria, large leukocyte esterase, and negative nitrite. Viral screen was negative for influenza AB RSV and SARS. Chest x-ray on admission showed no evidence of any acute cardiopulmonary process. Patient was admitted to the regular medical floor, however the a team was called to evaluate this patient earlier today, and the patient was complaining of shortness of breath, he did receive fluid boluses upon admission for the diagnosis of sepsis, patient was given a dose of Lasix I was made aware of this patient and I recommended transfer to the ICU for management of his sepsis. That 2 likely sources of sepsis include bilateral lower extremity cellulitis, and possible urinary tract infection. But clin ically the patient is clearly septic. Remained hemodynamically stable did not require any pressors. I saw this patient in the ICU, and he was alert, oriented, receiving antibiotics, and patient has cooling blankets for his temp as high as 102. Patient was seen today on 12/31/2024, remains in the ICU, continues to have intermittent fever with Tmax yesterday of 103 continues to have leukocytosis/wo rsening, clinically however the patient is feeling better. Remains on vancomycin and cefepime, blood cultures so far are negative urine cultures are so far negative patient remains on Tylenol and cooling blankets, remains on bronchodilators, hemodynamically the patient is stable and he is not requiring any pressors at least so far. Patient received multiple fluid boluses since admission, and he has good urine output today, did receive 1 dose of Lasix yesterday. WBC count is 25.99 hemoglobin 11.2 electrolytes are normal BUN is 77 creatinine 3.2 slight worsening is noted in his renal profile Objective - Vital Signs Vital signs: Vital Signs Temp 98.7 F 12/31/24 11:00 Pulse 83 12/31/24 11:00 Resp 15 12/31/24 11:00 BP 104/63 12/31/24 11:00 Pulse Ox 99 12/31/24 11:00 FiO2 Intake & Output 12/30/24 12/31/24 12/31/24 18:59 06:59 18:59 Intake Total 1780 2980 1455 Output Total 800 430 380 Balance 980 2550 1075 Weight 113.8 kg Intake: IV 30 90 50 Invasive Line 1 30 30 KVO 60 50 Intake, IV Titration 1750 1200 875 Amount ACETAMINOPHEN IV (For NPO 100 ) 1,000 mg In Empty Bag 1 bag @ 400 mls/hr IVPB ONCE ST[facility] Rx#:[id number] ACETAMINOPHEN IV (For NPO 100 200 ) 1,000 mg In Empty Bag 1 bag @ 400 mls/hr IVPB Q6HR [facility] Rx#:[id number] Cefepime 2 gm In Dextrose 100 5% in Water 100 ml @ 25 mls/hr IVPB Q12H [facility] Rx#: [id number] Cefepime 2 gm In Dextrose 200 5% in Water 100 ml @ 25 mls/hr IVPB Q8HR [facility] Rx#: [id number] Dextrose 5% in Water 1, 750 900 375 000 ml @ 75 mls/hr IV . [id number] [facility] Rx#:[id number] Vancomycin 1,750 mg In 500 500 Sodium Chloride 0.9% 500 ml 500 ml @ 167 mls/hr IVPB ONCE ONE Rx#: [id number] cefTRIAXone 1 gm In 100 Sodium Chloride 0.9% 50 ml @ 100 mls/hr IVPB Q24HR [facility] Rx#:[id number] Oral 1690 530 Output: Urine 800 430 380 Other: Voiding Method Indwelling Catheter Indwelling Catheter Indwelling Catheter - Exam GENERAL: Revealed 74-year-old white male on 2 L nasal cannula, O2 sat is 99% HEENT: PERRLA, EOMI, nonicteric, no neck masses no JVD NECK: No neck masses no stridor no JVD LUNGS: Diminished breath sounds at the bases, no crackles rhonchi or wheezes HEART: , normal S1-S2 audible,no murmur ABDOMEN: Obese, soft, nontender no megaly, no rebound, no guarding. EXTREMITIES: Both are wrapped with Mo wrappings, however pictures of the lower extremities are consistent with severe cellulitis/chronic and redness/erythema extending up to the mid thighs bilaterally. Neurologic: Alert oriented x 3, patient looks weak and lethargic. But arousable. Psychiatric: Normal mood, flat affect, normal mental status. Skin: As noted above extensive cellulitis affecting both lower extremities. - Labs CBC & Chem 7: 12/31/24 05:32 12/31/24 05:44 Labs: Abnormal Lab Results - Last 24 Hours (Table) 12/30/24 12/30/24 12/30/24 Range/Units 17:13 19:55 21:35 WBC (4.50-10.00) 10*3/uL RBC (4.40-5.60) 10*6/uL Hgb (13.0-17.0) g/dL Hct (39.6-50.0) % MCHC (32.0-37.0) g/dL BUN (9-20) mg/dL Creatinine (0.66-1.25) mg/dL Glucose (74-99) mg/dL POC Glucose (mg/dL) 191 H 162 H 178 H (70-110) mg/dL Hemoglobin A1c (<=6.0) % 12/31/24 12/31/24 12/31/24 Range/Units 05:32 05:44 05:44 WBC 25.99 H (4.50-10.00) 10*3/uL RBC 3.86 L (4.40-5.60) 10*6/uL Hgb 11.2 L (13.0-17.0) g/dL Hct 37.0 L (39.6-50.0) % MCHC 30.3 L (32.0-37.0) g/dL BUN 77 H (9-20) mg/dL Creatinine 3.22 H (0.66-1.25) mg/dL Glucose 224 H (74-99) mg/dL POC Glucose (mg/dL) (70-110) mg/dL Hemoglobin A1c 9.4 H (<=6.0) % 05/04/25 05/04/25 Range/Units 06:28 11:14 WBC (4.50-10.00) 10*3/uL RBC (4.40-5.60) 10*6/uL Hgb (13.0-17.0) g/dL Hct (39.6-50.0) % MCHC (32.0-37.0) g/dL BUN (9-20) mg/dL Creatinine (0.66-1.25) mg/dL Glucose (74-99) mg/dL POC Glucose (mg/dL) 194 H 249 H (70-110) mg/dL Hemoglobin A1c (<=6.0) % Microbiology - Last 24 Hours (Table) 12/30/24 02:00 Urine Culture - Final Urine,Voided 12/29/24 21:13 Blood Culture - Preliminary Blood Assessment and Plan Assessment: Impression: Severe sepsis Chronic cellulitis of lower extremities Acute leukocytosis secondary to above Hypernatremia secondary to free water deficit Acute kidney injury secondary to sepsis Acute lactic acidosis secondary to sepsis Acute non-ST elevation myocardial infarction Paroxysmal atrial fibrillation Benign essential hypertension History of hypothyroidism Dyslipidemia Recommendation: Continue to monitor in the ICU Continue present supportive care measures Avoid nephrotoxic agents Broad-spectrum antibiotics including vancomycin and cefepime for now and adjust accordingly based on the final cultures Infectious disease consultation is pending Cooling blankets and Tylenol for fever Daily monitoring of labs including CBC Reviewed the report/preliminary report on urine cultures and blood cultures so far nondiagnostic Continue IV fluids, continue to monitor I's and O's Continue to monitor electrolytes and renal profile Will continue to follow. Patient remains quite ill, and we will continue to monitor the patient in critical care setting. Time with Patient: Less than 30
--- NOTE | 2024-12-31 13:33 | P.PN ---
Subjective Progress Note Date: 12/31/24 patient 74-year-old gentleman with past medical history significant for COPD, atrial fibrillation hyperlipidemia, history of cellulitis of lower extremities who is currently resident of [facility] presents the ER for shortness of breath and fever. According to EMR, patient has been having increasing shortness of breath for the last day, patient also having fevers with Tmax 102.6. There is no complaint of chills. There is no complaint of chest pain. There was no complaint of orthopnea or PND. Patient has chronic erythema a of lower extremities.Initial lab work done in the ER showed WBC 27.73, hemoglobin 13.2, platelet count 451, D-dimer 1.59, sodium 148, potassium 4.8, BUN 58, creatinine 2.08, lactate 3.3, troponin 0.052 Influenza A not detected Influenza B not detected RSV not detected COVID-19 not detected EKG done in the ER showed heart rate of 12, ST depression in lead I and aVL, no T-wave inversions seen. Chest x-ray done in the ER showed no acute cardiopulmonary process Patient admitted to internal medicine service, patient was initially admitted to general medical floor but later transferred to ICU 12/31. Patient seen and examined. Labs reviewed showed WBC 25.99, hemoglobin 11.2, sodium 141, potassium 4.2, BUN 77, creatinine 3.22. Ultrasound of kidneys done showed no evidence of any obstructive uropathy Still spiking fever. States he feels slightly better REVIEW OF SYSTEMS: CONSTITUTIONAL: As mentioned above CARDIOVASCULAR: No chest pain, no palpitations, no syncope. PULMONARY: No shortness of breath, no cough, GASTROINTESTINAL: No diarrhea, no nausea, no vomiting, no abdominal pain. NEUROLOGICAL: No headaches, no weakness, PHYSICAL EXAMINATION: GENERAL: The patient is alert, ill looking HEENT: Pupils are round and equally reacting to light. EOMI. No scleral icterus. No conjunctival pallor. Normocephalic, atraumatic. No pharyngeal erythema. No thyromegaly. CARDIOVASCULAR: S1 and S2 present. No murmurs, rubs, or gallops. PULMONARY: diminished breath in the bases bilaterally,, no wheezing or crackles. ABDOMEN: Soft, nontender, nondistended, normoactive bowel sounds. No palpable organomegaly. MUSCULOSKELETAL: Bandage of lower extremities EXTREMITIES: No cyanosis, clubbing, or pedal edema. NEUROLOGICAL: Gross neurological examination did not reveal any focal deficits. SKIN: No rashes. Assessment and plan Sepsis UTI Cellulitis of left lower extremity SIMRAN on CKD Elevated troponin, likely secondary to sepsis and SIMRAN Elevated D-Dimer, likely due to sepsis History of HFpEF, last known EF 55-60% in 2019 Hypertension Hyperlipidemia Hypothyroidism Hypernatremia Monitor vital signs Monitor CBC Monitor CMP Continue telemetry monitoring Follow-up on blood cultures Follow urine cultures Continue wound care Continue aspirin, Lipitor Continue breathing treatment Continue cefepime, vancomycin strict I's and O's, daily weights 2D echo done showed preserved LV function, moderate aortic stenosis noted Cardiology following ID following Critical care following Nephrology following, appreciate their recommendation Labs and medication were reviewed.. Continue same treatment. Continue with symptomatic treatment. Resume home medication. Monitor labs and vitals. DVT and GI prophylaxis. Further recommendations as per clinical course of the jacqueline ent Dictation was produced using [employer] dictation software. please excuse any grammatical, word or spelling errors. Objective - Vital Signs Vital signs: Vital Signs Temp 98.0 F 12/31/24 09:00 Pulse 77 12/31/24 09:00 Resp 17 12/31/24 09:00 BP 107/61 12/31/24 09:00 Pulse Ox 100 12/31/24 09:00 FiO2 Intake & Output 12/30/24 12/31/24 12/31/24 18:59 06:59 18:59 Intake Total 1780 2980 1785 Output Total 800 430 180 Balance 980 2550 1605 Weight 113.8 kg Intake: IV 30 90 30 Invasive Line 1 30 30 KVO 60 30 Intake, IV Titration 1750 1200 1225 Amount ACETAMINOPHEN IV (For NPO 100 ) 1,000 mg In Empty Bag 1 bag @ 400 mls/hr IVPB ONCE STA Rx#:[id number] ACETAMINOPHEN IV (For NPO 100 200 ) 1,000 mg In Empty Bag 1 bag @ 400 mls/hr IVPB Q6HR [facility] Rx#:[id number] Cefepime 2 gm In Dextrose 100 5% in Water 100 ml @ 25 mls/hr IVPB Q12H [facility] Rx#: [id number] Cefepime 2 gm In Dextrose 200 5% in Water 100 ml @ 25 mls/hr IVPB Q8HR [facility] Rx#: [id number] Dextrose 5% in Water 1, 750 900 225 000 ml @ 75 mls/hr IV . [id number] [facility] Rx#:[id number] Vancomycin 1,750 mg In 500 500 Sodium Chloride 0.9% 500 ml 500 ml @ 167 mls/hr IVPB ONCE ONE Rx#: [id number] Vancomycin 1,750 mg In 500 Sodium Chloride 0.9% 500 ml 500 ml @ 167 mls/hr IVPB ONCE ONE Rx#: [id number] cefTRIAXone 1 gm In 100 Sodium Chloride 0.9% 50 ml @ 100 mls/hr IVPB Q24HR [facility] Rx#:[id number] Oral 1690 530 Output: Urine 800 430 180 Other: Voiding Method Indwelling Catheter Indwelling Catheter Indwelling Catheter - Labs CBC & Chem 7: 12/31/24 05:32 12/31/24 05:44 Labs: Abnormal Lab Results - Last 24 Hours (Table) 12/30/24 12/30/24 12/30/24 Range/Units 11:41 17:13 19:55 WBC (4.50-10.00) 10*3/uL RBC (4.40-5.60) 10*6/uL Hgb (13.0-17.0) g/dL Hct (39.6-50.0) % MCHC (32.0-37.0) g/dL BUN (9-20) mg/dL Creatinine (0.66-1.25) mg/dL Glucose (74-99) mg/dL POC Glucose (mg/dL) 277 H 191 H 162 H (70-110) mg/dL 12/30/24 12/31/24 12/31/24 Range/Units 21:35 05:32 05:44 WBC 25.99 H (4.50-10.00) 10*3/uL RBC 3.86 L (4.40-5.60) 10*6/uL Hgb 11.2 L (13.0-17.0) g/dL Hct 37.0 L (39.6-50.0) % MCHC 30.3 L (32.0-37.0) g/dL BUN 77 H (9-20) mg/dL Creatinine 3.22 H (0.66-1.25) mg/dL Glucose 224 H (74-99) mg/dL POC Glucose (mg/dL) 178 H (70-110) mg/dL 12/31/24 Range/Units 06:28 WBC (4.50-10.00) 10*3/uL RBC (4.40-5.60) 10*6/uL Hgb (13.0-17.0) g/dL Hct (39.6-50.0) % MCHC (32.0-37.0) g/dL BUN (9-20) mg/dL Creatinine (0.66-1.25) mg/dL Glucose (74-99) mg/dL POC Glucose (mg/dL) 194 H (70-110) mg/dL Microbiology - Last 24 Hours (Table) 12/30/24 02:00 Urine Culture - Final Urine,Voided 12/29/24 21:13 Blood Culture - Preliminary Blood
[2024-12-31 16:04] LABS: Glucose,Whole Blood 186 mg/dL (70-110)
[2024-12-31] MEDS: CEFEPIME 1 GM in SODIUM CHLORIDE 0.9% 50 ML IVPB SCH (18:09)
[2024-12-31] MEDS: ACETAMINOPHEN IV (For NPO) 1,000 MG in EMPTY BAG 1 BAG IVPB SCH (18:15)
[2024-12-31] MEDS: NYSTATIN 100,000 UNIT/GM POWD 15 GM TOPICAL SCH (20:21)
[2024-12-31 22:17] LABS: Glucose,Whole Blood 177 mg/dL (70-110)
--- NOTE | 2024-12-31 23:18 | P.CONS ---
History of Present Illness - Reason for Consult Consult date: 12/31/24 Sepsis, cellulitis DTI Requesting physician: Cynthia Hernandez - Chief Complaint Weakness and fever x 1 day - History of Present Illness Patient is a 74-year-old male with a past medical history significant for hypertension hyperlipidemia heart failure atrial fibrillation renal disorder, patient has been brought into the hospital from a local [place] [facility] concerning for fever shortness of breath and the patient was noticed to have increasing swelling and redness to the left lower extremity patient on presentation to the hospital did have a temperature of 100.3 F patient was tachycardic upon admission but not hypotensive or hypoxic requiring admission to the ICU patient did have a elevated white count 27.73 he did have elevated BUN and creatinine with a creatinine is up to 3.22 electrolytes are normal he did have elevated lactic acid as well as elevated troponins liver enzymes are normal urine has been positive influenza RSV COVID testing has been negative blood cultures are currently pending chest x-ray interstitial edema also have abdominal bladder ultrasound no hydronephrosis no nephrolithiasis patient has been treated with the cefepime and vancomycin infectious disease was consulted regarding sepsis left cough DTI most information has been obtained for review the chart of nursing staff as the patient himself is elevated good historian but not specifically denies any chest pain shortness of breath or cough no vomiting or diarrhea has been reported to be complaining of pain to the left lower extremity unable to quantify it any further Review of Systems Positive points has been mentioned in HPI complete review could not be obtained because of his underlying mental status Past Medical History Past Medical History: Atrial Fibrillation, Heart Failure, Hyperlipidemia, Hypertension, Renal Disease, Syncope Additional Past Medical History / Comment(s): anemia, UTI, Hypothyroid, depression, dysphagia History of Any Multi-Drug Resistant Organisms: None Reported Additional Past Surgical History / Comment(s): unknown Past Anesthesia/Blood Transfusion Reactions: No Reported Reaction Past Psychological History: No Psychological Hx Reported Smoking Status: Unknown if ever smoked Past Alcohol Use History: None Reported Past Drug Use History: None Reported - Past Family History Father History Unknown: Yes Mother History Unknown: Yes Medications and Allergies Home Medications Medication Instructions Recorded Confirmed Type Aspirin [Morrill Aspirin EC] 81 mg PO DAILY 12/24/18 12/29/24 History Atorvastatin [Lipitor] 20 mg PO HS@199912/24/18 12/29/24 History Alfuzosin HCl [Alfuzosin HCl ER] 10 mg PO DAILY 01/13/23 12/29/24 History Budesonide/Formoterol Fumarate 2 puff INHALATION RT-BID 01/13/23 12/29/24 History [Symbicort 160-4.5 Mcg Inhaler] Cholecalciferol [Vitamin D3 (25 75 mcg PO DAILY 01/13/23 12/29/24 History Mcg = 1000 Iu)] Ferrous Sulfate [Iron (65 MG 325 mg PO HS 01/13/23 12/29/24 History Elemental)] Lactulose 20 gm PO DAILY 01/13/23 12/29/24 History Magnesium Oxide [Magox 400] 400 mg PO HS 01/13/23 12/29/24 History Melatonin 3 mg PO HS 01/13/23 12/29/24 History allopurinoL [Zyloprim] 100 mg PO DAILY 01/13/23 12/29/24 History Brimonidine Tartrate [Alphagan P 1 drop BOTH EYES TID@0700,1300,1900 12/29/24 12/29/24 History 0.15% Ophth Soln] DULoxetine HCL [Cymbalta] 60 mg PO DAILY@0700 12/29/24 12/29/24 History Divalproex Sprinkle [Depakote 125 mg PO BID@0700,1600 12/29/24 12/29/24 History Sprinkle] Docusate [Colace] 100 mg PO BID 12/29/24 12/29/24 History Furosemide [Lasix] 40 mg PO BID@0700,1600 12/29/24 12/29/24 History Gabapentin [Neurontin] 300 mg PO TID@0700,1300,1900 12/29/24 12/29/24 History Icy Hot Advanced Relief 7.5% Patch 1 patch TRANSDERM DAILY@0700 12/29/24 12/29/24 History Ipratropium-Albuterol Nebulize 3 ml INHALATION RT-Q4H PRN 12/29/24 12/29/24 History [Duoneb 0.5 mg-3 mg/3 ml Soln] Ipratropium-Albuterol Nebulize 3 ml INHALATION RT-Q8H PRN 12/29/24 12/29/24 History [Duoneb 0.5 mg-3 mg/3 ml Soln] Levothyroxine Sodium [Synthroid] 88 mcg PO DAILY@0500 12/29/24 12/29/24 History Montelukast [Singulair] 10 mg PO HS@1900 12/29/24 12/29/24 History Naloxone HCl 0.4 mg SQ DIRECTED PRN 12/29/24 12/29/24 History Naloxone HCl 4 mg NASAL DIRECTED PRN 12/29/24 12/29/24 History metFORMIN HCL [Glucophage] 500 mg PO BID@0700,1600 12/29/24 12/29/24 History oxyCODONE-APAP 10-325MG [Percocet 1 tab PO Q4H 12/29/24 12/29/24 History 10-325 mg] tea tree oiL [Tea Tree Oil] 1 applic TOPICAL HS 12/29/24 12/29/24 History Allergies Allergy/AdvReac Type Severity Reaction Status Date / Time No Known Allergies Allergy Verified 12/29/24 19:42 Physical Exam Vitals: Vital Signs Temp Pulse Resp BP Pulse Ox 12/31/24 13:00 99.3 F 95 20 129/81 95 12/31/24 12:00 99.6 F 84 18 129/78 98 12/31/24 11:00 98.7 F 83 15 104/63 99 12/31/24 10:00 94 16 113/65 100 12/31/24 09:00 98.0 F 77 17 107/61 100 12/31/24 08:00 98.7 F 89 23 103/60 99 12/31/24 07:00 99.1 F 90 17 121/75 99 12/31/24 06:00 99.1 F 89 24 122/71 12/31/24 05:00 99.1 F 75 15 96/55 100 12/31/24 04:00 90 18 117/69 98 12/31/24 03:00 97.9 F 78 18 106/68 94 L 12/31/24 02:00 97.7 F 78 15 102/63 99 12/31/24 01:00 97.5 F L 81 18 94/70 99 12/31/24 00:13 82 19 98 12/31/24 00:00 97.9 F 97 19 98/63 97 12/30/24 23:00 99.0 F 98 20 100/80 96 12/30/24 22:00 101.3 F H 99 26 H 94/52 92 L 12/30/24 21:00 38.7 F L 101 H 25 H 147/79 95 12/30/24 20:00 103.3 F H 101 H 25 H 134/71 96 12/30/24 19:00 103.0 F H 101 H 18 137/102 12/30/24 18:00 102.0 F H 108 H 25 H 129/73 98 12/30/24 17:00 113 H 17 118/68 98 12/30/24 16:15 97 12/30/24 16:00 93 20 102/59 98 12/30/24 15:00 101.8 F H 104 H 24 119/69 93 L 12/30/24 14:30 102 H 22 115/69 94 L 12/30/24 14:00 100.9 F H 109 H 23 129/70 98 Intake and Output 12/30/24 12/31/24 12/31/24 22:59 06:59 14:59 Intake Total 1780 1710 1625 Output Total 390 215 605 Balance 1390 1495 1020 Intake: IV 20 80 70 Invasive Line 1 20 20 KVO 60 70 Intake, IV Titration 425 300 0294 Amount ACETAMINOPHEN IV (For NPO 100 200 ) 1,000 mg In Empty Bag 1 bag @ 400 mls/hr IVPB Q6HR [facility] Rx#:[id number] Cefepime 2 gm In Dextrose 100 5% in Water 100 ml @ 25 mls/hr IVPB Q12H [facility] Rx#: [id number] Cefepime 2 gm In Dextrose 100 5% in Water 100 ml @ 25 mls/hr IVPB Q8HR [facility] Rx#: [id number] Dextrose 5% in Water 1, 600 600 525 000 ml @ 75 mls/hr IV . [id number] [facility] Rx#:[id number] Vancomycin 1,750 mg In 500 Sodium Chloride 0.9% 500 ml 500 ml @ 167 mls/hr IVPB ONCE ONE Rx#: [id number] Oral 960 730 530 Output: Urine 390 215 605 Other: Voiding Method Indwelling Catheter Indwelling Catheter Indwelling Catheter Weight 113.8 kg GENERAL DESCRIPTION: Elderly male lying in bed, no distress. No tachypnea or accessory muscle of respiration use. HEENT: Shows Pallor , no scleral icterus. Oral mucous membrane is dry. NECK: Trachea central, no thyromegaly. LUNGS: Unlabored breathing. Clear to auscultation anteriorly. No wheeze or crackle. HEART: S1, S2, regular rate and rhythm. No loud murmur ABDOMEN: Soft, no tenderness , guarding or rigidity, no organomegaly EXTREMITIES: Left lower extremity did have diffuse swelling and redness weeping edema with evidence of athlete's foot blisters to the left leg and drainage SKIN: No rash, no masses palpable. NEUROLOGICAL: The patient is lethargic but arousable, mood and affect normal. Results CBC & Chem 7: 12/31/24 05:32 12/31/24 05:44 Labs: Abnormal Lab Results - Last 24 Hours (Table) 12/30/24 12/30/24 12/30/24 Range/Units 17:13 19:55 21:35 WBC (4.50-10.00) 10*3/uL RBC (4.40-5.60) 10*6/uL Hgb (13.0-17.0) g/dL Hct (39.6-50.0) % MCHC (32.0-37.0) g/dL BUN (9-20) mg/dL Creatinine (0.66-1.25) mg/dL Glucose (74-99) mg/dL POC Glucose (mg/dL) 191 H 162 H 178 H (70-110) mg/dL Hemoglobin A1c (<=6.0) % 12/31/24 12/31/24 12/31/24 Range/Units 05:32 05:44 05:44 WBC 25.99 H (4.50-10.00) 10*3/uL RBC 3.86 L (4.40-5.60) 10*6/uL Hgb 11.2 L (13.0-17.0) g/dL Hct 37.0 L (39.6-50.0) % MCHC 30.3 L (32.0-37.0) g/dL BUN 77 H (9-20) mg/dL Creatinine 3.22 H (0.66-1.25) mg/dL Glucose 224 H (74-99) mg/dL POC Glucose (mg/dL) (70-110) mg/dL Hemoglobin A1c 9.4 H (<=6.0) % 12/31/24 12/31/24 Range/Units 06:28 11:14 WBC (4.50-10.00) 10*3/uL RBC (4.40-5.60) 10*6/uL Hgb (13.0-17.0) g/dL Hct (39.6-50.0) % MCHC (32.0-37.0) g/dL BUN (9-20) mg/dL Creatinine (0.66-1.25) mg/dL Glucose (74-99) mg/dL POC Glucose (mg/dL) 194 H 249 H (70-110) mg/dL Hemoglobin A1c (<=6.0) % Microbiology - Last 24 Hours (Table) 12/30/24 02:00 Urine Culture - Final Urine,Voided 12/29/24 21:13 Blood Culture - Preliminary Blood Assessment and Plan (1) Cellulitis of left leg Current Visit: Yes Status: Acute Code(s): L03.116 - CELLULITIS OF LEFT LOWER LIMB SNOMED Code(s): 17125958358757690 (2) Sepsis Current Visit: Yes Status: Acute Code(s): A41.9 - SEPSIS, UNSPECIFIED ORGANISM SNOMED Code(s): 30109099 (3) Chronic kidney disease Current Visit: Yes Status: Chronic Priority: Medium Code(s): N18.9 - CHRONIC KIDNEY DISEASE, UNSPECIFIED SNOMED Code(s): 958720579 Plan: 1[facility] with sepsis in this patient who did have fever tachycardia elevated white count meeting criteria for SIRS source is left lower extremity cellulitis in this patient did have diffuse swelling and redness some ruptured blister and evidence of athlete's foot all pointing towards likely gram-positive skin darren such as strep 2-patient with a chronic kidney disease worsening creatinine high risk of nephrotoxicity from vancomycin which will be discontinued 3-patient will be treated with cefepime and will apply nystatin powder in between the toes and wait for the culture to finalize We will follow on clinical condition and cultures to further adjust medication if needed Thank you for this consultation we will follow the patient along with you Dictation was produced using [email or web address] dictation software. please excuse any grammatical, word or spelling errors. Time with Patient: Greater than 30
[2025-01-01 05:52] LABS: HCT 36.6 % (39.6-50.0); HGB 11.5 g/dL (13.0-17.0); MCH 29.1 pg (27.0-32.0); MCHC 31.4 g/dL (32.0-37.0); MCV 92.7 fL (80.0-97.0); Mean Platelet Volume 11.4 fL (9.5-12.2); Platelet Count 269 10*3/uL (140-440); RBC 3.95 10*6/uL (4.40-5.60); RDW 16.5 % (11.5-14.5); WBC 22.72 10*3/uL (4.50-10.00)
[2025-01-01 06:02] LABS: African American GFR (CKD) 36 (>60 ml/min/1.73 sqM); Anion Gap 12 mmol/L; Blood Urea Nitrogen 56 mg/dL (9-20); Calcium 8.5 mg/dL (8.4-10.2); Carbon Dioxide 21 mmol/L (22-30); Chloride 107 mmol/L (98-107); Glucose 136 mg/dL (74-99); Non-African American GFR(CKD) 31 (>60 ml/min/1.73 sqM); Sodium 140 mmol/L (137-145)
[2025-01-01 06:49] LABS: Glucose,Whole Blood 107 mg/dL (70-110)
--- NOTE | 2025-01-01 09:05 | P.PN ---
Subjective Patient is seen in follow-up for acute kidney injury on chronic kidney disease. Renal function better. Receiving IV fluids. Sodium level normal. Oral intake is fair. Vital signs are stable. General: No acute distress. HEENT: Head exam is unremarkable. On Airvo. LUNGS: No audible rhonchi or wheezes. HEART: Rate and Rhythm are regular. ABDOMEN: Nontender. EXTREMITITES: Lower extremities wrapped. No drainage. Erythema noted. Objective - Vital Signs Vital signs: Vital Signs Temp 99.7 F H 01/01/25 08:00 Pulse 93 01/01/25 08:00 Resp 24 01/01/25 08:00 BP 115/68 01/01/25 08:00 Pulse Ox 99 01/01/25 08:00 FiO2 Intake & Output 12/31/24 01/01/25 01/01/25 18:59 06:59 18:59 Intake Total 2730 1180 160 Output Total 1330 2190 225 Balance 1400 -1010 -65 Weight 118.1 kg Intake: IV 120 130 160 KVO 120 130 10 Lactated Ringers 1,000 ml 150 @ 75 mls/hr IV .[id number] SAMANTHA Rx#:[id number] Intake, IV Titration 1600 1050 Amount ACETAMINOPHEN IV (For NPO 100 ) 1,000 mg In Empty Bag 1 bag @ 400 mls/hr IVPB Q6HR SAMANTHA Rx#:[id number] Cefepime 1 gm In Sodium 100 Chloride 0.9% 50 ml @ 12. 5 mls/hr IVPB Q12H SAMANTHA Rx #:[id number] Dextrose 5% in Water 1, 450 75 000 ml @ 75 mls/hr IV . [id number] SAMANTHA Rx#:[id number] Lactated Ringers 1,000 ml 450 975 @ 75 mls/hr IV .[id number] SAMANTHA Rx#:[id number] Vancomycin 1,750 mg In 500 Sodium Chloride 0.9% 500 ml 500 ml @ 167 mls/hr IVPB ONCE ONE Rx#: [id number] Oral 1010 Output: Urine 1330 2190 225 Other: Voiding Method Indwelling Catheter Indwelling Catheter Indwelling Catheter - Labs CBC & Chem 7: 01/01/25 05:27 01/01/25 05:27 Labs: Abnormal Lab Results - Last 24 Hours (Table) 12/31/24 12/31/24 12/31/24 Range/Units 05:44 11:14 16:02 WBC (4.50-10.00) 10*3/uL RBC (4.40-5.60) 10*6/uL Hgb (13.0-17.0) g/dL Hct (39.6-50.0) % MCHC (32.0-37.0) g/dL Immature Gran # (0.00-0.04) 10*3/uL Carbon Dioxide (22-30) mmol/L BUN (9-20) mg/dL Creatinine (0.66-1.25) mg/dL Glucose (74-99) mg/dL POC Glucose (mg/dL) 249 H 186 H (70-110) mg/dL Hemoglobin A1c 9.4 H (<=6.0) % 12/31/24 01/01/25 01/01/25 Range/Units 22:14 05:27 05:27 WBC 22.72 H (4.50-10.00) 10*3/uL RBC 3.95 L (4.40-5.60) 10*6/uL Hgb 11.5 L (13.0-17.0) g/dL Hct 36.6 L (39.6-50.0) % MCHC 31.4 L (32.0-37.0) g/dL Immature Gran # 0.12 H (0.00-0.04) 10*3/uL Carbon Dioxide 21 L (22-30) mmol/L BUN 56 H (9-20) mg/dL Creatinine 2.05 H (0.66-1.25) mg/dL Glucose 136 H (74-99) mg/dL POC Glucose (mg/dL) 177 H (70-110) mg/dL Hemoglobin A1c (<=6.0) % Microbiology - Last 24 Hours (Table) 12/29/24 21:13 Blood Culture - Preliminary Blood 12/31/24 12:50 Gram Stain - Preliminary Leg - Left 12/30/24 02:00 Urine Culture - Final Urine,Voided Assessment and Plan Plan: Assessment: 1. Acute kidney injury secondary to ATN secondary to severe sepsis. Creatinine peaked at 3.22 this admission and is 2.05 today. 2. Chronic kidney disease stage IIIa with baseline creatinine 1.1-1.3. 3. Hypernatremia from lack of oral water intake. Improved. 4. Severe sepsis secondary to lower extremity cellulitis and UTI. On antibiotics. ID following. 5. Diabetes mellitus. Plan: Maintain IV fluids. Encourage oral intake. Avoid nephrotoxins. Continue to monitor renal function and urine output.
[2025-01-01 09:14] LABS: Lymphocytes # (M) 1.36 k/uL (1.0-4.8); Monocytes # (M) 0.23 k/uL (0-1.0); Neutrophils # (M) 21.13 k/uL (1.3-7.7); Neutrophils % (M) 93 %; Nucleated Red Blood Cells 0 /100 WBC (0-0); Total Cells Counted 100
[2025-01-01 09:15] LABS: Anisocytosis (M) Present
[2025-01-01 09:16] LABS: Spherocytes Present
[2025-01-01 09:17] LABS: RBC Fragments Present
[2025-01-01 11:27] LABS: Glucose,Whole Blood 162 mg/dL (70-110)
--- NOTE | 2025-01-01 12:18 | P.PN ---
Subjective Progress Note Date: 01/01/25 Principal diagnosis: Sepsis. This is a 74-year-old white male with history of chronic cellulitis of lower extremities, patient has not been seeking any medical attention or care to his cellulitis, patient was sent from [facility] yesterday mostly with symptoms of fever shortness of breath, increased work of breathing and he had a temperature as high as 102.6 upon his initial evaluation in the ER. Workup in the ER included CBC which showed leukocytosis with WBC count of 27.7, hemoglobin 13.2 89.9% neutrophilia, slightly elevated D-dimer 1.59 hypernatremia with sodium of 148 bicarb 21 BUN is 58 creatinine 2.08, elevated lactic acid of 3.5 elevated troponin of 0.077, and abnormal urinalysis showing pyuria, large leukocyte esterase, and negative nitrite. Viral screen was negative for influenza AB RSV and SARS. Chest x-ray on admission showed no evidence of any acute cardiopulmonary process. Patient was admitted to the regular medical floor, however the a team was called to evaluate this patient earlier today, and the patient was complaining of shortness of breath, he did receive fluid boluses upon admission for the diagnosis of sepsis, patient was given a dose of Lasix I was made aware of this patient and I recommended transfer to the ICU for man agement of his sepsis. That 2 likely sources of sepsis include bilateral lower extremity cellulitis, and possible urinary tract infection. But clinically the patient is clearly septic. Remained hemodynamically stable did not require any pressors. I saw this patient in the ICU, and he was alert, oriented, receiving antibiotics, and patient has cooling blankets for his temp as high as 102. Patient was seen today on 12/31/2024, remains in the ICU, continues to have intermittent fever with Tmax yesterday of 103 continues to have leukocytosis/worsening, clinically however the patient is feeling better. Remains on vancomycin and cefepime, blood cultures so far are negative urine cultures are so far negative patient remains on Tylenol and cooling blankets, remains on bronchodilators, hemodynamically the patient is stable and he is not requiring any pressors at least so far. Patient received multiple fluid boluses since admission, and he has good urine output today, did receive 1 dose of Lasix yesterday. WBC count is 25.99 hemoglobin 11.2 electrolytes are normal BUN is 77 creatinine 3.2 slight worsening is noted in his renal profile Progress note dated January 01, 2025. 74-year-old male who was seen in consultation a couple days ago. He was met with a diagnosis of sepsis. The patient is seen today in room 262. He was admitted on December 29. He came in with sepsis, and acute kidney injury. He is currently on 2 L of oxygen. He is getting lactated Ringer's at 75 cc an hour. He is currently on cefepime. His left leg wound is showing evidence of gram- positive cocci. Current laboratory data includes a white count of 22.7, hemoglobin 11.5, hematocrit 36.6, and a platelet count of 269,000. Sodium 140, potassium 4, chlorides 107, CO2 21, BUN 56, creatinine 2.05. Glucose is 162. Calcium is 8.5. Objective - Vital Signs Vital signs: Vital Signs Temp 99.7 F H 01/01/25 09:00 Pulse 90 01/01/25 11:38 Resp 20 01/01/25 09:00 BP 133/77 01/01/25 09:00 Pulse Ox 99 01/01/25 09:00 FiO2 Intake & Output 12/31/24 01/01/25 01/01/25 18:59 06:59 18:59 Intake Total 2730 1180 310 Output Total 1330 2190 450 Balance 1400 -1010 -140 Weight 118.1 kg Intake: IV 120 130 310 KVO 120 130 10 Lactated Ringers 1,000 ml 300 @ 75 mls/hr IV .[id number] SAMANTHA Rx#:[id number] Intake, IV Titration 1600 1050 Amount ACETAMINOPHEN IV (For NPO 100 ) 1,000 mg In Empty Bag 1 bag @ 400 mls/hr IVPB Q6HR SAMANTHA Rx#:[id number] Cefepime 1 gm In Sodium 100 Chloride 0.9% 50 ml @ 12. 5 mls/hr IVPB Q12H SAMANTHA Rx #:[id number] Dextrose 5% in Water 1, 450 75 000 ml @ 75 mls/hr IV . [id number] SAMANTHA Rx#:[id number] Lactated Ringers 1,000 ml 450 975 @ 75 mls/hr IV .[id number] SAMANTHA Rx#:[id number] Vancomycin 1,750 mg In 500 Sodium Chloride 0.9% 500 ml 500 ml @ 167 mls/hr IVPB ONCE ONE Rx#: [id number] Oral 1010 Output: Urine 1330 2190 450 Other: Voiding Method Indwelling Catheter Indwelling Catheter Indwelling Catheter - Exam No acute distress, oriented 3. HEENT examination is grossly unremarkable. Neck supple. Full range of motion. No adenopathy thyromegaly or neck vein distention. Cardiovascular examination reveals regular rhythm rate. S1-S2 normal. No S3 or S4. No discernible murmur noted. Lungs reveal clear breath sounds. Breath sounds are equal bilaterally. No adventitious lung sounds including wheezes rhonchi or crackles. Abdomen soft bowel sounds are heard. No masses or tenderness. Extremities are wrapped with bandages, but there is evidence of cellulitis, with chronic redness and erythema, extending up above the knee. Skin with significant cellulitis of the lower extremities. Neurologic examination is brief but nonfocal. - Labs CBC & Chem 7: 01/01/25 05:01/01/25 05: Labs: Abnormal Lab Results - Last 24 Hours (Table) 12/31/24 12/31/24 01/01/25 Range/Units 16:02 22:14 05: WBC 22.72 H (4.50-10.00) 10*3/uL RBC 3.95 L (4.40-5.60) 10*6/uL Hgb 11.5 L (13.0-17.0) g/dL Hct 36.6 L (39.6-50.0) % MCHC 31.4 L (32.0-37.0) g/dL Immature Gran # 0.12 H (0.00-0.04) 10*3/uL Neutrophils # (Manual) 21.13 H (1.3-7.7) k/uL Carbon Dioxide (22-30) mmol/L BUN (9-20) mg/dL Creatinine (0.66-1.25) mg/dL Glucose (74-99) mg/dL POC Glucose (mg/dL) 186 H 177 H (70-110) mg/dL 01/01/25 01/01/25 Range/Units 05:27 11:25 WBC (4.50-10.00) 10*3/uL RBC (4.40-5.60) 10*6/uL Hgb (13.0-17.0) g/dL Hct (39.6-50.0) % MCHC (32.0-37.0) g/dL Immature Gran # (0.00-0.04) 10*3/uL Neutrophils # (Manual) (1.3-7.7) k/uL Carbon Dioxide 21 L (22-30) mmol/L BUN 56 H (9-20) mg/dL Creatinine 2.05 H (0.66-1.25) mg/dL Glucose 136 H (74-99) mg/dL POC Glucose (mg/dL) 162 H (70-110) mg/dL Microbiology - Last 24 Hours (Table) 12/29/24 21:13 Blood Culture - Preliminary Blood 12/31/24 12:50 Gram Stain - Preliminary Leg - Left 12/30/24 02:00 Urine Culture - Final Urine,Voided Assessment and Plan Assessment: Severe sepsis, secondary to cellulitis, and leg wounds. Chronic cellulitis of the lower extremities. Leukocytosis, secondary to sepsis, and cellulitis. Hypernatremia, secondary to dehydration. Acute kidney injury secondary to sepsis. Acute lactic acidosis, secondary to sepsis. Acute non-ST segment elevation myocardial infarction. Paroxysmal atrial fibrillation. Benign essential hypertension. History of hypothyroidism. Hyperlipidemia. Plan: Plan dated January 01, 2025. The patient is seen in room 262. The patient is getting LR at 75 cc an hour, and 2 L by nasal cannula. The patient continues on cefepime. Leg wound is showing evidence of gram-positive cocci. All labs, x-rays, and medications are reviewed. We will continue to follow the patient, make recommendations along the way. The patient's overall prognosis remains guarded. The patient could be considered for possible discharge out of the intensive care unit. The patient remains a full code. Dictation was produced using [employer] software. Please excuse any grammatical, word or spelling errors. Time with Patient: Less than 30
[2025-01-01 16:56] LABS: Glucose,Whole Blood 283 mg/dL (70-110)
[2025-01-01 20:00] LABS: Glucose,Whole Blood 253 mg/dL (70-110)
[2025-01-01] MEDS: oxyCODONE-APAP 10-325MG 1 EACH TAB PO PRN (23:28)
[2025-01-02 06:17] LABS: MCHC 32.3 g/dL (32.0-37.0); MCV 89.9 fL (80.0-97.0); Mean Platelet Volume 11.9 fL (9.5-12.2); Platelet Count 304 10*3/uL (140-440); RBC 3.45 10*6/uL (4.40-5.60); WBC 27.34 10*3/uL (4.50-10.00)
[2025-01-02 06:50] LABS: Glucose,Whole Blood 127 mg/dL (70-110)
[2025-01-02 07:23] LABS: Lymphocytes # (M) 2.46 k/uL (1.0-4.8); Monocytes # (M) 1.09 k/uL (0-1.0); Neutrophils # (M) 23.79 k/uL (1.3-7.7); Neutrophils % (M) 87 %; Nucleated Red Blood Cells 0 /100 WBC (0-0); Total Cells Counted 100; Toxic Vacuolation Present
[2025-01-02 07:25] LABS: Anisocytosis (M) Present
[2025-01-02 07:59] LABS: African American GFR (CKD) 53 (>60 ml/min/1.73 sqM); Anion Gap 14 mmol/L; Blood Urea Nitrogen 42 mg/dL (9-20); Calcium 8.8 mg/dL (8.4-10.2); Carbon Dioxide 20 mmol/L (22-30); Chloride 105 mmol/L (98-107); Glucose 137 mg/dL (74-99); Non-African American GFR(CKD) 46 (>60 ml/min/1.73 sqM); Sodium 139 mmol/L (137-145)
[2025-01-02 08:00] LABS: Potassium 4.7 mmol/L (3.5-5.1)
--- NOTE | 2025-01-02 09:38 | P.PN ---
Subjective Patient is seen in follow-up for acute kidney injury on chronic kidney disease. Renal function better. Receiving IV fluids. Sodium level normal. Oral intake is fair. Vital signs are stable. General: No acute distress. HEENT: Head exam is unremarkable. On Airvo. LUNGS: No audible rhonchi or wheezes. HEART: Rate and Rhythm are regular. ABDOMEN: Nontender. EXTREMITITES: Lower extremities wrapped. No drainage. Erythema noted. Objective - Vital Signs Vital signs: Vital Signs Temp 98.6 F 01/02/25 02:00 Pulse 90 01/02/25 08:01 Resp 14 01/02/25 02:00 BP 138/76 01/02/25 02:00 Pulse Ox 98 01/02/25 02:00 FiO2 Intake & Output 01/01/25 01/02/25 01/02/25 18:59 06:59 18:59 Intake Total 2035 1620 Output Total 1075 1110 Balance 960 510 Weight 118.1 kg Intake: IV 835 900 KVO 10 Lactated Ringers 1,000 ml 825 900 @ 75 mls/hr IV .[id number] SAMANTHA Rx#:[id number] Oral 1200 720 Output: Urine 1075 1110 Other: Voiding Method Indwelling Catheter Indwelling Catheter - Labs CBC & Chem 7: 01/02/25 05:41 01/02/25 07:12 Labs: Abnormal Lab Results - Last 24 Hours (Table) 01/01/25 01/01/25 01/01/25 Range/Units 11:25 16:55 19:59 WBC (4.50-10.00) 10*3/uL RBC (4.40-5.60) 10*6/uL Hgb (13.0-17.0) g/dL Hct (39.6-50.0) % Immature Gran # (0.00-0.04) 10*3/uL Neutrophils # (Manual) (1.3-7.7) k/uL Monocytes # (Manual) (0-1.0) k/uL Carbon Dioxide (22-30) mmol/L BUN (9-20) mg/dL Creatinine (0.66-1.25) mg/dL Glucose (74-99) mg/dL POC Glucose (mg/dL) 162 H 283 H 253 H (70-110) mg/dL 01/02/25 01/02/25 01/02/25 Range/Units 05:41 06:48 07:12 WBC 27.34 H (4.50-10.00) 10*3/uL RBC 3.45 L (4.40-5.60) 10*6/uL Hgb 10.0 L D (13.0-17.0) g/dL Hct 31.0 L (39.6-50.0) % Immature Gran # 0.46 H (0.00-0.04) 10*3/uL Neutrophils # (Manual) 23.79 H (1.3-7.7) k/uL Monocytes # (Manual) 1.09 H (0-1.0) k/uL Carbon Dioxide 20 L (22-30) mmol/L BUN 42 H (9-20) mg/dL Creatinine 1.50 H (0.66-1.25) mg/dL Glucose 137 H (74-99) mg/dL POC Glucose (mg/dL) 127 H (70-110) mg/dL Microbiology - Last 24 Hours (Table) 12/29/24 21:13 Blood Culture - Preliminary Blood 12/31/24 12:50 Gram Stain - Preliminary Leg - Left Wound Culture - Preliminary Proteus mirabilis Enterococcus faecalis Strep A Assessment and Plan Plan: Assessment: 1. Acute kidney injury secondary to ATN secondary to severe sepsis. Creatinine peaked at 3.22 this admission and is 1.5 today. 2. Chronic kidney disease stage IIIa with baseline creatinine 1.1-1.3. 3. Hypernatremia from lack of oral water intake. Improved. 4. Severe sepsis secondary to lower extremity cellulitis and UTI. On antibiotics. ID following. 5. Diabetes mellitus. 6. Metabolic acidosis secondary to acute kidney injury and IV fluids. Plan: Hep-Lock IV fluids. Encourage oral intake. Avoid nephrotoxins. Continue to monitor renal function and urine output.
--- NOTE | 2025-01-02 10:52 | P.CONS ---
History of Present Illness - Reason for Consult Consult date: 01/02/25 wound care - History of Present Illness This is a 74-year-old patient being seen in ICU for nonhealing ulceration to the left lower extremity right lower extremity and right great toe. Patient states that the ulcerations have been there for approximately 5 years he has someone come into his home and helps dress them. He does not know what they are utilizing. Patient states that the ulcerations have not changed significantly over the past 5 years. Left lateral calf Ulceration is a nonpressure ulcer with fat layer exposed measuring approximately 8 x 4.5 x 0.2 cm with granulation and minimal slough and nonviable tissue present. No tunneling or undermining noted. The periwound shows erythema and edema extending to the left upper thigh. Patient also has a open ulceration nonpressure related with fat layer exposure to the right anterior lower extremity measuring approximately 0.3 x 0.4 x 0.1 cm with granulation seen throughout minimal slough and nonviable tissue present. Wound edges are attached to the wound base no tunneling or undermining noted. The right great toe has a open ulceration with fat layer exposure to the medial aspect measuring approximately 2 x 2 x 0.2 cm with slough and nonviable tissue present granulation seen throughout wound edges are attached to the wound base. Patient's past medical history significant for atrial fibrillation CHF and high cholesterol. Patient denies diabetes. Review Of Systems: Constitutional: No fever, no chills, no night sweats. No weight change. No wea kness, fatigue or lethargy. No daytime sleepiness. Integumentary:reports wounds, no lesions. No rash or pruritus. No unusual bruising. No change in hair or nails. Physical exam: General Appearance: Alert, cooperative, no distress, appears stated age. Skin: See HPI all other Skin color, texture, tugor normal, no rashes or lesions. Neurologic: Alert oriented x3 Assessment: 1. Nonpressure ulceration with fat layer exposure left calf 2. Nonpressure ulcer right lower extremity other site with fat layer exposure 3. Nonpressure ulceration right great toe with fat layer exposure Plan: 1.Left Calf: Apply absorptive silver, abd, rolled gauze, and secure with tape. Right lower extremity/right great toe: Apply honey gel, dry gauze, rolled gauze and secure with tape. Wrap with harley wrap for compression. Thank you for the consultation any questions please contact the wound care center DNP note has been reviewed and discussed with Dr. Chandler and the impression and plan of care has been directed as dictated. Past Medical History Past Medical History: Atrial Fibrillation, Heart Failure, Hyperlipidemia, Hypertension, Renal Disease, Syncope Additional Past Medical History / Comment(s): anemia, UTI, Hypothyroid, depression, dysphagia History of Any Multi-Drug Resistant Organisms: None Reported Additional Past Surgical History / Comment(s): unknown Past Anesthesia/Blood Transfusion Reactions: No Reported Reaction Past Psychological History: No Psychological Hx Reported Smoking Status: Unknown if ever smoked Past Alcohol Use History: None Reported Past Drug Use History: None Reported - Past Family History Father History Unknown: Yes Mother History Unknown: Yes Medications and Allergies Home Medications Medication Instructions Recorded Confirmed Type Aspirin [Hardee Aspirin EC] 81 mg PO DAILY 12/24/18 12/29/24 History Atorvastatin [Lipitor] 20 mg PO HS@199912/24/18 12/29/24 History Alfuzosin HCl [Alfuzosin HCl ER] 10 mg PO DAILY 01/13/23 12/29/24 History Budesonide/Formoterol Fumarate 2 puff INHALATION RT-BID 01/13/23 12/29/24 History [Symbicort 160-4.5 Mcg Inhaler] Cholecalciferol [Vitamin D3 (25 75 mcg PO DAILY 01/13/23 12/29/24 History Mcg = 1000 Iu)] Ferrous Sulfate [Iron (65 MG 325 mg PO HS 01/13/23 12/29/24 History Elemental)] Lactulose 20 gm PO DAILY 01/13/23 12/29/24 History Magnesium Oxide [Magox 400] 400 mg PO HS 01/13/23 12/29/24 History Melatonin 3 mg PO HS 01/13/23 12/29/24 History allopurinoL [Zyloprim] 100 mg PO DAILY 01/13/23 12/29/24 History Brimonidine Tartrate [Alphagan P 1 drop BOTH EYES TID@0700,1300,1900 12/29/24 12/29/24 History 0.15% Ophth Soln] DULoxetine HCL [Cymbalta] 60 mg PO DAILY@0700 12/29/24 12/29/24 History Divalproex Sprinkle [Depakote 125 mg PO BID@0700,1600 12/29/24 12/29/24 History Sprinkle] Docusate [Colace] 100 mg PO BID 12/29/24 12/29/24 History Furosemide [Lasix] 40 mg PO BID@0700,1600 12/29/24 12/29/24 History Gabapentin [Neurontin] 300 mg PO TID@0700,1300,1900 12/29/24 12/29/24 History Icy Hot Advanced Relief 7.5% Patch 1 patch TRANSDERM DAILY@0700 12/29/24 12/29/24 History Ipratropium-Albuterol Nebulize 3 ml INHALATION RT-Q4H PRN 12/29/24 12/29/24 History [Duoneb 0.5 mg-3 mg/3 ml Soln] Ipratropium-Albuterol Nebulize 3 ml INHALATION RT-Q8H PRN 12/29/24 12/29/24 History [Duoneb 0.5 mg-3 mg/3 ml Soln] Levothyroxine Sodium [Synthroid] 88 mcg PO DAILY@0500 12/29/24 12/29/24 History Montelukast [Singulair] 10 mg PO HS@1900 12/29/24 12/29/24 History Naloxone HCl 0.4 mg SQ DIRECTED PRN 12/29/24 12/29/24 History Naloxone HCl 4 mg NASAL DIRECTED PRN 12/29/24 12/29/24 History metFORMIN HCL [Glucophage] 500 mg PO BID@0700,1600 12/29/24 12/29/24 History oxyCODONE-APAP 10-325MG [Percocet 1 tab PO Q4H 12/29/24 12/29/24 History 10-325 mg] tea tree oiL [Tea Tree Oil] 1 applic TOPICAL HS 12/29/24 12/29/24 History Allergies Allergy/AdvReac Type Severity Reaction Status Date / Time No Known Allergies Allergy Verified 12/29/24 19:42 Physical Exam Vitals: Vital Signs Temp Pulse Pulse Resp BP Pulse Ox 01/02/25 08:01 90 01/02/25 08:00 97.7 F 90 16 138/83 95 01/02/25 07:47 84 01/02/25 02:00 98.6 F 80 14 138/76 98 05/05/25 21:09 93 01/01/25 20:47 103 H 01/01/25 20:00 102.7 F H 115 H 24 141/78 98 01/01/25 15:34 84 01/01/25 15:25 84 01/01/25 14:00 99.9 F H 85 18 120/68 99 01/01/25 11:38 90 01/01/25 11:29 90 Intake and Output 01/01/25 01/02/25 01/02/25 22:59 06:59 14:59 Intake Total 1725 1620 Output Total 625 1110 Balance 1100 510 Intake: IV 525 900 Lactated Ringers 1,000 ml 525 900 @ 75 mls/hr IV .[id number] SAMANTHA Rx#:[id number] Oral 1200 720 Output: Urine 625 1110 Other: Voiding Method Indwelling Catheter Indwelling Catheter Results CBC & Chem 7: 01/02/25 05:41 01/02/25 07:12 Labs: Abnormal Lab Results - Last 24 Hours (Table) 01/01/25 01/01/25 01/01/25 Range/Units 11:25 16:55 19:59 WBC (4.50-10.00) 10*3/uL RBC (4.40-5.60) 10*6/uL Hgb (13.0-17.0) g/dL Hct (39.6-50.0) % Immature Gran # (0.00-0.04) 10*3/uL Neutrophils # (Manual) (1.3-7.7) k/uL Monocytes # (Manual) (0-1.0) k/uL Carbon Dioxide (22-30) mmol/L BUN (9-20) mg/dL Creatinine (0.66-1.25) mg/dL Glucose (74-99) mg/dL POC Glucose (mg/dL) 162 H 283 H 253 H (70-110) mg/dL 01/02/25 01/02/25 01/02/25 Range/Units 05:41 06:48 07:12 WBC 27.34 H (4.50-10.00) 10*3/uL RBC 3.45 L (4.40-5.60) 10*6/uL Hgb 10.0 L D (13.0-17.0) g/dL Hct 31.0 L (39.6-50.0) % Immature Gran # 0.46 H (0.00-0.04) 10*3/uL Neutrophils # (Manual) 23.79 H (1.3-7.7) k/uL Monocytes # (Manual) 1.09 H (0-1.0) k/uL Carbon Dioxide 20 L (22-30) mmol/L BUN 42 H (9-20) mg/dL Creatinine 1.50 H (0.66-1.25) mg/dL Glucose 137 H (74-99) mg/dL POC Glucose (mg/dL) 127 H (70-110) mg/dL Microbiology - Last 24 Hours (Table) 12/29/24 21:13 Blood Culture - Preliminary Blood 12/31/24 12:50 Gram Stain - Preliminary Leg - Left Wound Culture - Preliminary Proteus mirabilis Enterococcus faecalis Strep A Assessment and Plan (1) Non-pressure chronic ulcer of left calf with fat layer exposed Current Visit: Yes Status: Acute Code(s): L97.222 - NON-PRESSURE CHRONIC ULCER OF LEFT CALF W FAT LAYER EXPOSED SNOMED Code(s): 95491356782329586 (2) Non-pressure chronic ulcer of other part of right lower leg with fat layer exposed Current Visit: Yes Status: Acute Code(s): L97.812 - NON-PRS CHRONIC ULCER OTH PRT R LOW LEG W FAT LAYER EXPOSED SNOMED Code(s): 67606161498797730 (3) Non-pressure chronic ulcer of other part of right foot with fat layer exposed Current Visit: Yes Status: Acute Code(s): L97.512 - NON-PRS CHRONIC ULCER OTH PRT RIGHT FOOT W FAT LAYER EXPOSED SNOMED Code(s): 83827042793404171
--- NOTE | 2025-01-02 10:56 | P.PN ---
Subjective Progress Note Date: 01/02/25 Principal diagnosis: Sepsis. This is a 74-year-old white male with history of chronic cellulitis of lower extremities, patient has not been seeking any medical attention or care to his cellulitis, patient was sent from [facility] yesterday mostly with symptoms of fever shortness of breath, increased work of breathing and he had a temperature as high as 102.6 upon his initial evaluation in the ER. Workup in the ER included CBC which showed leukocytosis with WBC count of 27.7, hemoglobin 13.2 89.9% neutrophilia, slightly elevated D-dimer 1.59 hypernatremia with sodium of 148 bicarb 21 BUN is 58 creatinine 2.08, elevated lactic acid of 3.5 elevated troponin of 0.077, and abnormal urinalysis showing pyuria, large leukocyte esterase, and negative nitrite. Viral screen was negative for influenza AB RSV and SARS. Chest x-ray on admission showed no evidence of any acute cardiopulmonary process. Patient was admitted to the regular medical floor, however the a team was called to evaluate this patient earlier today, and the patient was complaining of shortness of breath, he did receive fluid boluses upon admission for the diagnosis of sepsis, patient was given a dose of Lasix I was made aware of this patient and I recommended transfer to the ICU for man agement of his sepsis. That 2 likely sources of sepsis include bilateral lower extremity cellulitis, and possible urinary tract infection. But clinically the patient is clearly septic. Remained hemodynamically stable did not require any pressors. I saw this patient in the ICU, and he was alert, oriented, receiving antibiotics, and patient has cooling blankets for his temp as high as 102. Patient was seen today on 12/31/2024, remains in the ICU, continues to have intermittent fever with Tmax yesterday of 103 continues to have leukocytosis/worsening, clinically however the patient is feeling better. Remains on vancomycin and cefepime, blood cultures so far are negative urine cultures are so far negative patient remains on Tylenol and cooling blankets, remains on bronchodilators, hemodynamically the patient is stable and he is not requiring any pressors at least so far. Patient received multiple fluid boluses since admission, and he has good urine output today, did receive 1 dose of Lasix yesterday. WBC count is 25.99 hemoglobin 11.2 electrolytes are normal BUN is 77 creatinine 3.2 slight worsening is noted in his renal profile Progress note dated January 01, 2025. 74-year-old male who was seen in consultation a couple days ago. He was met with a diagnosis of sepsis. The patient is seen today in room 262. He was admitted on December 29. He came in with sepsis, and acute kidney injury. He is currently on 2 L of oxygen. He is getting lactated Ringer's at 75 cc an hour. He is currently on cefepime. His left leg wound is showing evidence of gram- positive cocci. Current laboratory data includes a white count of 22.7, hemoglobin 11.5, hematocrit 36.6, and a platelet count of 269,000. Sodium 140, potassium 4, chlorides 107, CO2 21, BUN 56, creatinine 2.05. Glucose is 162. Calcium is 8.5. Progress note dated January 02, 2025. 74-year-old male seen today in room 262. He was admitted with a diagnosis of sepsis. Currently, the patient is resting comfortably in room 262. He is on 2 L of oxygen. He is getting lactated Ringer's at 10 cc an hour. He continues on cefepime as per infectious diseases. The patient is an overflow patient, and can be transferred out of the intensive care unit. Labs today include a white count of 27.3, hemoglobin 10, hematocrit 31, and a normal platelet count. Sodium 139, potassium 4.7, chlorides 105, CO2 20, anion gap 14, BUN 42, crea tinine 1.50. Glucose is 137. Calcium is 8.8. Wound cultures from December 31, of the left leg, show evidence of group A streptococci, Proteus mirabilis, and Enterococcus species. Objective - Vital Signs Vital signs: Vital Signs Temp 97.7 F 01/02/25 08:00 Pulse 90 01/02/25 08:01 Resp 16 01/02/25 08:00 BP 138/83 01/02/25 08:00 Pulse Ox 95 01/02/25 08:00 FiO2 Intake & Output 01/01/25 01/02/25 01/02/25 18:59 06:59 18:59 Intake Total 2034 1620 Output Total 1075 1110 Balance 960 510 Weight 118.1 kg Intake: IV 835 900 KVO 10 Lactated Ringers 1,000 ml 825 900 @ 75 mls/hr IV .[id number] [facility] Rx#:[id number] Oral 1200 720 Output: Urine 1075 1110 Other: Voiding Method Indwelling Catheter Indwelling Catheter Indwelling Catheter - Exam No acute distress, oriented 3. The patient is currently on 2 L. HEENT examination is grossly unremarkable. Neck supple. Full range of motion. No adenopathy thyromegaly or neck vein distention. Cardiovascular examination reveals regular rhythm rate. S1-S2 normal. No S3 or S4. No discernible murmur noted. Lungs reveal clear breath sounds. Breath sounds are equal bilaterally. No adventitious lung sounds including wheezes rhonchi or crackles. Abdomen soft bowel sounds are heard. No masses or tenderness. Extremities are wrapped with bandages, but there is evidence of cellulitis, with chronic redness and erythema, extending up above the knee. Skin with significant cellulitis of the lower extremities. Neurologic examination is brief but nonfocal. - Labs CBC & Chem 7: 01/02/25 05:41 01/02/25 07:12 Labs: Abnormal Lab Results - Last 24 Hours (Table) 01/01/25 01/01/25 01/01/25 Range/Units 11:25 16:55 19:59 WBC (4.50-10.00) 10*3/uL RBC (4.40-5.60) 10*6/uL Hgb (13.0-17.0) g/dL Hct (39.6-50.0) % Immature Gran # (0.00-0.04) 10*3/uL Neutrophils # (Manual) (1.3-7.7) k/uL Monocytes # (Manual) (0-1.0) k/uL Carbon Dioxide (22-30) mmol/L BUN (9-20) mg/dL Creatinine (0.66-1.25) mg/dL Glucose (74-99) mg/dL POC Glucose (mg/dL) 162 H 283 H 253 H (70-110) mg/dL 01/02/25 01/02/25 01/02/25 Range/Units 05:41 06:48 07:12 WBC 27.34 H (4.50-10.00) 10*3/uL RBC 3.45 L (4.40-5.60) 10*6/uL Hgb 10.0 L D (13.0-17.0) g/dL Hct 31.0 L (39.6-50.0) % Immature Gran # 0.46 H (0.00-0.04) 10*3/uL Neutrophils # (Manual) 23.79 H (1.3-7.7) k/uL Monocytes # (Manual) 1.09 H (0-1.0) k/uL Carbon Dioxide 20 L (22-30) mmol/L BUN 42 H (9-20) mg/dL Creatinine 1.50 H (0.66-1.25) mg/dL Glucose 137 H (74-99) mg/dL POC Glucose (mg/dL) 127 H (70-110) mg/dL Microbiology - Last 24 Hours (Table) 12/29/24 21:13 Blood Culture - Preliminary Blood 12/31/24 12:50 Gram Stain - Preliminary Leg - Left Wound Culture - Preliminary Proteus mirabilis Enterococcus faecalis Strep A Assessment and Plan Assessment: Severe sepsis, and cellulitis, with leg wounds, secondary to group A strep, Proteus, and Enterococcus. Chronic cellulitis of the lower extremities. Leukocytosis, secondary to sepsis, and cellulitis. Hypernatremia, secondary to dehydration. Acute kidney injury secondary to sepsis. Acute lactic acidosis, secondary to sepsis. Acute non-ST segment elevation myocardial infarction. Paroxysmal atrial fibrillation. Benign essential hypertension. History of hypothyroidism. Hyperlipidemia. Plan: Plan dated January 01, 2025. The patient is seen in room 262. The patient is getting LR at 75 cc an hour, and 2 L by nasal cannula. The patient continues on cefepime. Leg wound is showing evidence of gram-positive cocci. All labs, x-rays, and medications are reviewed. We will continue to follow the patient, make recommendations along the way. The patient's overall prognosis remains guarded. The patient could be considered for possible discharge out of the intensive care unit. The patient remains a full code. Dictation was produced using [employer] software. Please excuse any grammatical, word or spelling errors. Plan dated January 02, 2025. Wound cultures from the left leg show evidence of group A streptococci, Proteus species, and Enterococcus species. The patient continues on cefepime as per infectious diseases. We will continue to follow. The patient could be transferred out of the intensive care unit. He is currently on 2 L. He is getting lactated Ringer's at 10 cc an hour. Labs, x-rays, and all medications are reviewed. We will continue to follow the patient. Prognosis is guarded. Dictation was produced using [employer] software. Please excuse any grammatical, word or spelling errors. Time with Patient: Less than 30
[2025-01-02 11:31] LABS: Glucose,Whole Blood 145 mg/dL (70-110)
[2025-01-02] MEDS: PETROLAT,WHITE/LAN/8-HYDROXYQU 227 GM OINT TOPICAL SCH (14:35)
[2025-01-02 16:12] LABS: Glucose,Whole Blood 157 mg/dL (70-110)
--- NOTE | 2025-01-02 16:13 | P.PN ---
Subjective Progress Note Date: 01/02/25 Principal diagnosis: Reason for follow-up is left lower extremity cellulitis Patient is a 74-year-old male with a past medical history significant for hypertension hyperlipidemia heart failure atrial fibrillation renal disorder, patient has been brought into the hospital from a local assisted concerning for fever shortness of breath and the patient was noticed to have increasing swelling and redness to the left lower extremity has been diagnosed with cellulitis prompted this consultation. On today's evaluation that is 01/02/2025,the patient did have low-grade fever 100.2 this afternoon patient is currently breathing comfortably on 2 L nasal cannula oxygen patient is slightly depressed today did not answer question no vomiting or diarrhea has been reported. Patient white count is up to 27.34 creatinine is 1.50 cultures are now growing Proteus Enterococcus faecalis and strep Objective - Vital Signs Vital signs: Vital Signs Temp 100.2 F H 01/02/25 14:00 Pulse 84 01/02/25 15:27 Resp 20 01/02/25 14:00 BP 105/68 01/02/25 14:00 Pulse Ox 94 L 01/02/25 14:00 FiO2 Intake & Output 01/01/25 01/02/25 01/02/25 18:59 06:59 18:59 Intake Total 2034 1620 Output Total 1075 1110 350 Balance 960 510 -350 Weight 118.1 kg Intake: IV 835 900 KVO 10 Lactated Ringers 1,000 ml 825 900 @ 75 mls/hr IV .[id number] [facility] Rx#:[id number] Oral 1200 720 Output: Urine 1075 1110 350 Other: Voiding Method Indwelling Catheter Indwelling Catheter Indwelling Catheter - Exam GENERAL DESCRIPTION: An elderly male lying in bed in no distress RESPIRATORY SYSTEM: Unlabored breathing , decreased breath sounds at bases HEART: S1 S2 regular rate and rhythm , ABDOMEN: Soft , no tenderness EXTREMITIES: Lower extremity with extensive swelling redness some drainage of the dressing - Labs CBC & Chem 7: 01/02/25 05:41 01/02/25 07:12 Labs: Abnormal Lab Results - Last 24 Hours (Table) 01/01/25 01/01/25 01/02/25 Range/Units 16:55 19:59 05:41 WBC 27.34 H (4.50-10.00) 10*3/uL RBC 3.45 L (4.40-5.60) 10*6/uL Hgb 10.0 L D (13.0-17.0) g/dL Hct 31.0 L (39.6-50.0) % Immature Gran # 0.46 H (0.00-0.04) 10*3/uL Neutrophils # (Manual) 23.79 H (1.3-7.7) k/uL Monocytes # (Manual) 1.09 H (0-1.0) k/uL Carbon Dioxide (22-30) mmol/L BUN (9-20) mg/dL Creatinine (0.66-1.25) mg/dL Glucose (74-99) mg/dL POC Glucose (mg/dL) 283 H 253 H (70-110) mg/dL 01/02/25 01/02/25 01/02/25 Range/Units 06:48 07:12 11:30 WBC (4.50-10.00) 10*3/uL RBC (4.40-5.60) 10*6/uL Hgb (13.0-17.0) g/dL Hct (39.6-50.0) % Immature Gran # (0.00-0.04) 10*3/uL Neutrophils # (Manual) (1.3-7.7) k/uL Monocytes # (Manual) (0-1.0) k/uL Carbon Dioxide 20 L (22-30) mmol/L BUN 42 H (9-20) mg/dL Creatinine 1.50 H (0.66-1.25) mg/dL Glucose 137 H (74-99) mg/dL POC Glucose (mg/dL) 127 H 145 H (70-110) mg/dL 01/02/25 Range/Units 16:10 WBC (4.50-10.00) 10*3/uL RBC (4.40-5.60) 10*6/uL Hgb (13.0-17.0) g/dL Hct (39.6-50.0) % Immature Gran # (0.00-0.04) 10*3/uL Neutrophils # (Manual) (1.3-7.7) k/uL Monocytes # (Manual) (0-1.0) k/uL Carbon Dioxide (22-30) mmol/L BUN (9-20) mg/dL Creatinine (0.66-1.25) mg/dL Glucose (74-99) mg/dL POC Glucose (mg/dL) 157 H (70-110) mg/dL Microbiology - Last 24 Hours (Table) 01/02/25 02:25 Gram Stain - Preliminary Toe - Right First 12/29/24 21:13 Blood Culture - Preliminary Blood 12/31/24 12:50 Gram Stain - Preliminary Leg - Left Wound Culture - Preliminary Proteus mirabilis Enterococcus faecalis Strep A Assessment and Plan (1) Cellulitis of left leg Current Visit: Yes Status: Acute Code(s): L03.116 - CELLULITIS OF LEFT LOWER LIMB SNOMED Code(s): 18711303583919186 (2) Sepsis Current Visit: Yes Status: Acute Code(s): A41.9 - SEPSIS, UNSPECIFIED ORGANISM SNOMED Code(s): 75868215 (3) Chronic kidney disease Current Visit: Yes Status: Chronic Priority: Medium Code(s): N18.9 - CHRONIC KIDNEY DISEASE, UNSPECIFIED SNOMED Code(s): 979291728 Plan: 1patient presented hospital with sepsis in this patient who did have fever tachycardia elevated white count meeting criteria for SIRS source is left lower extremity cellulitis in this patient did have diffuse swelling and redness some ruptured blister and evidence of athlete's foot all pointing towards likely gr am-positive skin darren such as strep 2-patient with a chronic kidney disease worsening creatinine high risk of nephrotoxicity from vancomycin which was discontinued 3-patient culture now growing staph and Proteus and Enterococcus with sensitivities pending, patient to continue with cefepime and daptomycin has been added while waiting for the culture to finalize Dictation was produced using [employer] dictation software. please excuse any grammatical, word or spelling errors. Time with Patient: Less than 30
--- NOTE | 2025-01-02 16:13 | P.PN ---
Subjective Progress Note Date: 01/01/25 Principal diagnosis: Reason for follow-up is left lower extremity cellulitis Patient is a 74-year-old male with a past medical history significant for hypertension hyperlipidemia heart failure atrial fibrillation renal disorder, patient has been brought into the hospital from a local intermediate concerning for fever shortness of breath and the patient was noticed to have increasing swelling and redness to the left lower extremity has been diagnosed with cellulitis prompted this consultation. On today's evaluation that is 01/01/2025,the patient denies any fever or any chills, patient is breathing comfortably on room air, the patient is more awake and alert denies chest pain shortness of breath and no significant cough, patient denies abdominal pain, no nausea vomiting or diarrhea. Patient white count is down to 22.72 creatinine is 2.05 cultures are growing strep Objective - Vital Signs Vital signs: Vital Signs Temp 99.7 F H 01/01/25 09:00 Pulse 90 01/01/25 11:38 Resp 20 01/01/25 09:00 BP 133/77 01/01/25 09:00 Pulse Ox 99 01/01/25 09:00 FiO2 Intake & Output 12/31/24 01/01/25 01/01/25 18:59 06:59 18:59 Intake Total 2730 1180 310 Output Total 1330 2190 450 Balance 1400 -1010 -140 Weight 118.1 kg Intake: IV 120 130 310 KVO 120 130 10 Lactated Ringers 1,000 ml 300 @ 75 mls/hr IV .[id number] [facility] Rx#:[id number] Intake, IV Titration 1600 1050 Amount ACETAMINOPHEN IV (For NPO 100 ) 1,000 mg In Empty Bag 1 bag @ 400 mls/hr IVPB Q6HR [facility] Rx#:[id number] Cefepime 1 gm In Sodium 100 Chloride 0.9% 50 ml @ 12. 5 mls/hr IVPB Q12H [facility] Rx #:[id number] Dextrose 5% in Water 1, 450 75 000 ml @ 75 mls/hr IV . [id number] [facility] Rx#:[id number] Lactated Ringers 1,000 ml 450 975 @ 75 mls/hr IV .[id number] [facility] Rx#:[id number] Vancomycin 1,750 mg In 500 Sodium Chloride 0.9% 500 ml 500 ml @ 167 mls/hr IVPB ONCE ONE Rx#: [id number] Oral 1010 Output: Urine 1330 2190 450 Other: Voiding Method Indwelling Catheter Indwelling Catheter Indwelling Catheter - Exam GENERAL DESCRIPTION: An elderly male lying in bed in no distress RESPIRATORY SYSTEM: Unlabored breathing , decreased breath sounds at bases HEART: S1 S2 regular rate and rhythm , ABDOMEN: Soft , no tenderness EXTREMITIES: Lower extremity with extensive swelling redness some drainage of the dressing - Labs CBC & Chem 7: 01/02/25 05:41 01/02/25 07:12 Labs: Abnormal Lab Results - Last 24 Hours (Table) 12/31/24 12/31/24 01/01/25 Range/Units 16:02 22:14 05:27 WBC 22.72 H (4.50-10.00) 10*3/uL RBC 3.95 L (4.40-5.60) 10*6/uL Hgb 11.5 L (13.0-17.0) g/dL Hct 36.6 L (39.6-50.0) % MCHC 31.4 L (32.0-37.0) g/dL Immature Gran # 0.12 H (0.00-0.04) 10*3/uL Neutrophils # (Manual) 21.13 H (1.3-7.7) k/uL Carbon Dioxide (22-30) mmol/L BUN (9-20) mg/dL Creatinine (0.66-1.25) mg/dL Glucose (74-99) mg/dL POC Glucose (mg/dL) 186 H 177 H (70-110) mg/dL 01/01/25 01/01/25 Range/Units 05:27 11:25 WBC (4.50-10.00) 10*3/uL RBC (4.40-5.60) 10*6/uL Hgb (13.0-17.0) g/dL Hct (39.6-50.0) % MCHC (32.0-37.0) g/dL Immature Gran # (0.00-0.04) 10*3/uL Neutrophils # (Manual) (1.3-7.7) k/uL Carbon Dioxide 21 L (22-30) mmol/L BUN 56 H (9-20) mg/dL Creatinine 2.05 H (0.66-1.25) mg/dL Glucose 136 H (74-99) mg/dL POC Glucose (mg/dL) 162 H (70-110) mg/dL Microbiology - Last 24 Hours (Table) 12/29/24 21:13 Blood Culture - Preliminary Blood 12/31/24 12:50 Gram Stain - Preliminary Leg - Left Assessment and Plan (1) Cellulitis of left leg Current Visit: Yes Status: Acute Code(s): L03.116 - CELLULITIS OF LEFT LOWER LIMB SNOMED Code(s): 94573032019431224 (2) Sepsis Current Visit: Yes Status: Acute Code(s): A41.9 - SEPSIS, UNSPECIFIED ORGANISM SNOMED Code(s): 27792238 (3) Chronic kidney disease Current Visit: Yes Status: Chronic Priority: Medium Code(s): N18.9 - CHRONIC KIDNEY DISEASE, UNSPECIFIED SNOMED Code(s): 648904675 Plan: 1patient [facility] with sepsis in this patient who did have fever tachycardia elevated white count meeting criteria for SIRS source is left lower extremity cellulitis in this patient did have diffuse swelling and redness some ruptured blister and evidence of athlete's foot all pointing towards likely gram-positive skin darren such as strep 2-patient with a chronic kidney disease worsening creatinine high risk of nephrotoxicity from vancomycin which was discontinued 3-patient with nystatin powder in between the toes along with cefepime while waiting for the culture to finalize Dictation was produced using [email or web address] dictation software. please excuse any grammatical, word or spelling errors. Time with Patient: Less than 30
[2025-01-02 20:49] LABS: Glucose,Whole Blood 219 mg/dL (70-110)
--- NOTE | 2025-01-02 21:53 | P.PN ---
Subjective Progress Note Date: 01/01/25 patient 74-year-old gentleman with past medical history significant for COPD, atrial fibrillation hyperlipidemia, history of cellulitis of lower extremities who is currently resident of [facility] presents the ER for shortness of breath and fever. According to EMR, patient has been having increasing shortness of breath for the last day, patient also having fevers with Tmax 102.6. There is no complaint of chills. There is no complaint of chest pain. There was no complaint of orthopnea or PND. Patient has chronic erythema a of lower extremities.Initial lab work done in the ER showed WBC 27.73, hemoglobin 13.2, platelet count 451, D-dimer 1.59, sodium 148, potassium 4.8, BUN 58, creatinine 2.08, lactate 3.3, troponin 0.052 Influenza A not detected Influenza B not detected RSV not detected COVID-19 not detected EKG done in the ER showed heart rate of 12, ST depression in lead I and aVL, no T-wave inversions seen. Chest x-ray done in the ER showed no acute cardiopulmonary process Patient admitted to internal medicine service, patient was initially admitted to general medical floor but later transferred to ICU 12/31. Patient seen and examined. Labs reviewed showed WBC 25.99, hemoglobin 11.2, sodium 141, potassium 4.2, BUN 77, creatinine 3.22. Ultrasound of kidneys done showed no evidence of any obstructive uropathy Still spiking fever. States he feels slightly better 01/01/2025 Patient is in the MICU. Awake alert and oriented. No complaints of chest pain or shortness of breath. Patient has been afebrile. Admitted to hospital due to left lower extremity cellulitis and sepsis and acute kidney injury. Currently on antibiotics in the form of cefepime. Wound cultures growing Proteus and Enterococcus faecalis and Klebsiella. Laboratory data showed WBC 22.7 hemoglobin 11.9 platelets 269 sodium 140 potassium 4.0 chloride 107 bicarb is 21 BUN 56 and creatinine 2.05 and blood sugar 136. ID and critical care team is on board. Current medications reviewed. REVIEW OF SYSTEMS: CONSTITUTIONAL: As mentioned above CARDIOVASCULAR: No chest pain, no palpitations, no syncope. PULMONARY: No shortness of breath, no cough, GASTROINTESTINAL: No diarrhea, no nausea, no vomiting, no abdominal pain. NEUROLOGICAL: No headaches, no weakness, PHYSICAL EXAMINATION: GENERAL: The patient is alert, ill looking HEENT: Pupils are round and equally reacting to light. EOMI. No scleral icterus. No conjunctival pallor. Normocephalic, atraumatic. No pharyngeal erythema. No thyromegaly. CARDIOVASCULAR: S1 and S2 present. No murmurs, rubs, or gallops. PULMONARY: diminished breath in the bases bilaterally,, no wheezing or crackles. ABDOMEN: Soft, nontender, nondistended, normoactive bowel sounds. No palpable organomegaly. MUSCULOSKELETAL: Bandage of lower extremities EXTREMITIES: No cyanosis, clubbing, or pedal edema. NEUROLOGICAL: Gross neurological examination did not reveal any focal deficits. SKIN: No rashes. Assessment and plan Sepsis UTI Cellulitis of left lower extremity SIMRAN on CKD due to ATN with severe sepsis Elevated troponin, likely secondary to sepsis and SIMRAN Elevated D-Dimer, likely due to sepsis History of HFpEF, last known EF 55-60% in 2019 Hypertension Hyperlipidemia Hypothyroidism Hypernatremia Monitor vital signs Monitor CBC Monitor CMP Continue telemetry monitoring Follow-up on blood cultures Follow urine cultures Continue wound care Continue aspirin, Lipitor Continue breathing treatment Continue cefepime as per ID recommendations. strict I's and O's, daily weights 2D echo done showed preserved LV function, moderate aortic stenosis noted ID, critical care team and nephrology is following. Labs and medication were reviewed. Monitor labs and vitals. DVT and GI prophylaxis. Dictation was produced using [employer] dictation software. please excuse any grammatical, word or spelling errors. Objective - Vital Signs Vital signs: Vital Signs Temp 99.7 F H 01/01/25 09:00 Pulse 90 01/01/25 11:38 Resp 20 01/01/25 09:00 BP 133/77 01/01/25 09:00 Pulse Ox 99 01/01/25 09:00 FiO2 Intake & Output 12/31/24 01/01/25 01/01/25 18:59 06:59 18:59 Intake Total 2730 1180 310 Output Total 1330 2190 450 Balance 1400 -1010 -140 Weight 118.1 kg Intake: IV 120 130 310 KVO 120 130 10 Lactated Ringers 1,000 ml 300 @ 75 mls/hr IV .[id number] [facility] Rx#:[id number] Intake, IV Titration 1600 1050 Amount ACETAMINOPHEN IV (For NPO 100 ) 1,000 mg In Empty Bag 1 bag @ 400 mls/hr IVPB Q6HR [facility] Rx#:[id number] Cefepime 1 gm In Sodium 100 Chloride 0.9% 50 ml @ 12. 5 mls/hr IVPB Q12H [facility] Rx #:[id number] Dextrose 5% in Water 1, 450 75 000 ml @ 75 mls/hr IV . [id number] [facility] Rx#:[id number] Lactated Ringers 1,000 ml 450 975 @ 75 mls/hr IV .[id number] [facility] Rx#:[id number] Vancomycin 1,750 mg In 500 Sodium Chloride 0.9% 500 ml 500 ml @ 167 mls/hr IVPB ONCE ONE Rx#: [id number] Oral 1010 Output: Urine 1330 2190 450 Other: Voiding Method Indwelling Catheter Indwelling Catheter Indwelling Catheter - Labs CBC & Chem 7: 01/03/25 05:52 01/03/25 05:52 Labs: Abnormal Lab Results - Last 24 Hours (Table) 12/31/24 12/31/24 01/01/25 Range/Units 16:02 22:14 05:27 WBC 22.72 H (4.50-10.00) 10*3/uL RBC 3.95 L (4.40-5.60) 10*6/uL Hgb 11.5 L (13.0-17.0) g/dL Hct 36.6 L (39.6-50.0) % MCHC 31.4 L (32.0-37.0) g/dL Immature Gran # 0.12 H (0.00-0.04) 10*3/uL Neutrophils # (Manual) 21.13 H (1.3-7.7) k/uL Carbon Dioxide (22-30) mmol/L BUN (9-20) mg/dL Creatinine (0.66-1.25) mg/dL Glucose (74-99) mg/dL POC Glucose (mg/dL) 186 H 177 H (70-110) mg/dL 01/01/25 01/01/25 Range/Units 05:27 11:25 WBC (4.50-10.00) 10*3/uL RBC (4.40-5.60) 10*6/uL Hgb (13.0-17.0) g/dL Hct (39.6-50.0) % MCHC (32.0-37.0) g/dL Immature Gran # (0.00-0.04) 10*3/uL Neutrophils # (Manual) (1.3-7.7) k/uL Carbon Dioxide 21 L (22-30) mmol/L BUN 56 H (9-20) mg/dL Creatinine 2.05 H (0.66-1.25) mg/dL Glucose 136 H (74-99) mg/dL POC Glucose (mg/dL) 162 H (70-110) mg/dL Microbiology - Last 24 Hours (Table) 12/29/24 21:13 Blood Culture - Preliminary Blood 12/31/24 12:50 Gram Stain - Preliminary Leg - Left 12/30/24 02:00 Urine Culture - Final Urine,Voided Assessment and Plan Time with Patient: Greater than 30
[2025-01-03 06:16] LABS: Glucose,Whole Blood 128 mg/dL (70-110)
[2025-01-03 06:34] LABS: HCT 35.9 % (39.6-50.0); HGB 11.3 g/dL (13.0-17.0); MCH 28.7 pg (27.0-32.0); MCHC 31.5 g/dL (32.0-37.0); MCV 91.1 fL (80.0-97.0); Mean Platelet Volume 12.3 fL (9.5-12.2); RBC 3.94 10*6/uL (4.40-5.60); RDW 16.8 % (11.5-14.5); WBC 22.68 10*3/uL (4.50-10.00)
[2025-01-03 06:57] LABS: African American GFR (CKD) 54 (>60 ml/min/1.73 sqM); Anion Gap 14 mmol/L; Blood Urea Nitrogen 43 mg/dL (9-20); Calcium 8.9 mg/dL (8.4-10.2); Carbon Dioxide 17 mmol/L (22-30); Chloride 106 mmol/L (98-107); Glucose 131 mg/dL (74-99); Non-African American GFR(CKD) 47 (>60 ml/min/1.73 sqM); Sodium 137 mmol/L (137-145)
[2025-01-03 06:58] LABS: Potassium 4.3 mmol/L (3.5-5.1)
--- NOTE | 2025-01-03 09:24 | P.PN ---
Subjective Patient is seen in follow-up for acute kidney injury on chronic kidney disease. Renal function stable. Off IV fluids. ANO x 2. Vital signs are stable. General: No acute distress. Appears lethargic. HEENT: Head exam is unremarkable. On nasal cannula. LUNGS: Scattered rhonchi. HEART: Rate and Rhythm are regular. ABDOMEN: Nontender. EXTREMITITES: Lower extremities wrapped. No drainage. Erythema noted. Objective - Vital Signs Vital signs: Vital Signs Temp 100.9 F H 01/03/25 02:00 Pulse 84 01/03/25 09:07 Resp 20 01/03/25 02:00 BP 124/62 01/03/25 02:00 Pulse Ox 97 01/03/25 02:00 FiO2 Intake & Output 01/02/25 01/03/25 01/03/25 18:59 06:59 18:59 Intake Total 1750 360 Output Total 735 650 Balance 1015 -290 Intake: IV 490 360 Cefepime 2 gm In Dextrose 200 100 5% in Water 100 ml @ 25 mls/hr IVPB Q12H SAMANTHA Rx#: [id number] DAPTOmycin 400 mg In 50 Sodium Chloride 0.9% 50 ml @ 100 mls/hr IVPB Q24HR SAMANTHA Rx#:[id number] KVO 240 260 Oral 1260 Output: Urine 735 650 Other: Voiding Method Indwelling Catheter Indwelling Catheter - Labs CBC & Chem 7: 01/03/25 05:52 01/03/25 05:52 Labs: Abnormal Lab Results - Last 24 Hours (Table) 01/02/25 01/02/25 01/02/25 Range/Units 11:30 16:10 20:48 WBC (4.50-10.00) 10*3/uL RBC (4.40-5.60) 10*6/uL Hgb (13.0-17.0) g/dL Hct (39.6-50.0) % MCHC (32.0-37.0) g/dL MPV (9.5-12.2) fL Immature Gran # (0.00-0.04) 10*3/uL Carbon Dioxide (22-30) mmol/L BUN (9-20) mg/dL Creatinine (0.66-1.25) mg/dL Glucose (74-99) mg/dL POC Glucose (mg/dL) 145 H 157 H 219 H (70-110) mg/dL 01/03/25 01/03/25 01/03/25 Range/Units 05:52 05:52 06:15 WBC 22.68 H (4.50-10.00) 10*3/uL RBC 3.94 L (4.40-5.60) 10*6/uL Hgb 11.3 L (13.0-17.0) g/dL Hct 35.9 L (39.6-50.0) % MCHC 31.5 L (32.0-37.0) g/dL MPV 12.3 H (9.5-12.2) fL Immature Gran # 1.90 H (0.00-0.04) 10*3/uL Carbon Dioxide 17 L (22-30) mmol/L BUN 43 H (9-20) mg/dL Creatinine 1.47 H (0.66-1.25) mg/dL Glucose 131 H (74-99) mg/dL POC Glucose (mg/dL) 128 H (70-110) mg/dL Microbiology - Last 24 Hours (Table) 12/31/24 12:50 Gram Stain - Preliminary Leg - Left Wound Culture - Preliminary Proteus mirabilis Enterococcus faecalis Strep A 12/31/24 12:50 Anaerobic Culture - Preliminary Leg - Left 01/02/25 02:25 Gram Stain - Preliminary Toe - Right First Assessment and Plan Plan: Assessment: 1. Acute kidney injury secondary to ATN secondary to severe sepsis. Creatinine peaked at 3.22 this admission and is stable at 1.47 today. No hydronephrosis noted on ultrasound. 2. Chronic kidney disease stage IIIa with baseline creatinine 1.1-1.3. 3. Hypernatremia from lack of oral water intake. Improved. 4. Severe sepsis secondary to lower extremity cellulitis and UTI. On antibiotics. ID following. 5. Diabetes mellitus. 6. Metabolic acidosis secondary to acute kidney injury and IV fluids. Plan: Encourage oral intake. Avoid nephrotoxins. Continue to monitor renal function and urine output. Add oral bicarb. Check chest x-ray.
[2025-01-03] MEDS: SODIUM BICARBONATE TAB 650 MG TAB PO SCH (09:53)
--- NOTE | 2025-01-03 10:00 | XR ---
EXAMINATION TYPE: XR chest 1V DATE OF EXAM: 01/03/2025 CLINICAL INDICATION: Male, 74 years old with history of sob, progress study. TECHNIQUE: Single AP portable upright view of the chest is obtained. COMPARISON: Chest x-ray from 3 days earlier FINDINGS: There is chronic parenchymal changes without suspicious focal airspace opacity, pleural ef fusion, or pneumothorax seen bilaterally. There is mild cardiomegaly redemonstrated with atherosclero tic and ectatic aortic knob. Osseous structures are demineralized with degenerative change bilateral glenohumeral joints. IMPRESSION: Chronic Changes and mild cardiomegaly without acute pulmonary process [facility], , 01/03/2025 9:58 AM
--- NOTE | 2025-01-03 11:13 | P.PN ---
Subjective Progress Note Date: 01/03/25 Principal diagnosis: Sepsis. This is a 74-year-old white male with history of chronic cellulitis of lower extremities, patient has not been seeking any medical attention or care to his cellulitis, patient was sent from [facility] yesterday mostly with symptoms of fever shortness of breath, increased work of breathing and he had a temperature as high as 102.6 upon his initial evaluation in the ER. Workup in the ER included CBC which showed leukocytosis with WBC count of 27.7, hemoglobin 13.2 89.9% neutrophilia, slightly elevated D-dimer 1.59 hypernatremia with sodium of 148 bicarb 21 BUN is 58 creatinine 2.08, elevated lactic acid of 3.5 elevated troponin of 0.077, and abnormal urinalysis showing pyuria, large leukocyte esterase, and negative nitrite. Viral screen was negative for influenza AB RSV and SARS. Chest x-ray on admission showed no evidence of any acute cardiopulmonary process. Patient was admitted to the regular medical floor, however the a team was called to evaluate this patient earlier today, and the patient was complaining of shortness of breath, he did receive fluid boluses upon admission for the diagnosis of sepsis, patient was given a dose of Lasix I was made aware of this patient and I recommended transfer to the ICU for man agement of his sepsis. That 2 likely sources of sepsis include bilateral lower extremity cellulitis, and possible urinary tract infection. But clinically the patient is clearly septic. Remained hemodynamically stable did not require any pressors. I saw this patient in the ICU, and he was alert, oriented, receiving antibiotics, and patient has cooling blankets for his temp as high as 102. Patient was seen today on 12/31/2024, remains in the ICU, continues to have intermittent fever with Tmax yesterday of 103 continues to have leukocytosis/worsening, clinically however the patient is feeling better. Remains on vancomycin and cefepime, blood cultures so far are negative urine cultures are so far negative patient remains on Tylenol and cooling blankets, remains on bronchodilators, hemodynamically the patient is stable and he is not requiring any pressors at least so far. Patient received multiple fluid boluses since admission, and he has good urine output today, did receive 1 dose of Lasix yesterday. WBC count is 25.99 hemoglobin 11.2 electrolytes are normal BUN is 77 creatinine 3.2 slight worsening is noted in his renal profile Progress note dated January 01, 2025. 74-year-old male who was seen in consultation a couple days ago. He was met with a diagnosis of sepsis. The patient is seen today in room 262. He was admitted on December 29. He came in with sepsis, and acute kidney injury. He is currently on 2 L of oxygen. He is getting lactated Ringer's at 75 cc an hour. He is currently on cefepime. His left leg wound is showing evidence of gram- positive cocci. Current laboratory data includes a white count of 22.7, hemoglobin 11.5, hematocrit 36.6, and a platelet count of 269,000. Sodium 140, potassium 4, chlorides 107, CO2 21, BUN 56, creatinine 2.05. Glucose is 162. Calcium is 8.5. Progress note dated January 02, 2025. 74-year-old male seen today in room 262. He was admitted with a diagnosis of sepsis. Currently, the patient is resting comfortably in room 262. He is on 2 L of oxygen. He is getting lactated Ringer's at 10 cc an hour. He continues on cefepime as per infectious diseases. The patient is an overflow patient, and can be transferred out of the intensive care unit. Labs today include a white count of 27.3, hemoglobin 10, hematocrit 31, and a normal platelet count. Sodium 139, potassium 4.7, chlorides 105, CO2 20, anion gap 14, BUN 42, crea tinine 1.50. Glucose is 137. Calcium is 8.8. Wound cultures from December 31, of the left leg, show evidence of group A streptococci, Proteus mirabilis, and Enterococcus species. Progress note dated January 03, 2025. 74-year-old male again seen in room 262. Currently, the patient is resting comfortably in bed. He is on 2 L. No IV fluids. He continues on cefepime and daptomycin as per infectious diseases. Current laboratory data includes a white count of 22.7, hemoglobin 11.3, hematocrit 35.9, and a platelet count of 197,000. Sodium 137, potassium 4.3, chlorides 106, CO2 is 17, anion gap 14, BUN 43, creatinine 1.47. Glucose is 128. Calcium 8.9.Chest x-ray shows chronic changes, with mild cardiomegaly. Objective - Vital Signs Vital signs: Vital Signs Temp 99.5 F 01/03/25 08:00 Pulse 84 01/03/25 09:07 Resp 20 01/03/25 08:00 BP 109/53 01/03/25 08:00 Pulse Ox 96 01/03/25 08:00 FiO2 Intake & Output 01/02/25 01/03/25 01/03/25 18:59 06:59 18:59 Intake Total 1750 360 Output Total 735 650 225 Balance 1015 -290 -225 Intake: IV 490 360 Cefepime 2 gm In Dextrose 200 100 5% in Water 100 ml @ 25 mls/hr IVPB Q12H [facility]ANTHA Rx#: [id number] DAPTOmycin 400 mg In 50 Sodium Chloride 0.9% 50 ml @ 100 mls/hr IVPB Q24HR [facility]ANTHA Rx#:[id number] KVO 240 260 Oral 1260 Output: Urine 735 650 225 Other: Voiding Method Indwelling Catheter Indwelling Catheter - Exam No acute distress, oriented 3. The patient is currently on 2 L. HEENT examination is grossly unremarkable. Neck supple. Full range of motion. No adenopathy thyromegaly or neck vein distention. Cardiovascular examination reveals regular rhythm rate. S1-S2 normal. No S3 or S4. No discernible murmur noted. Lungs reveal clear breath sounds. Breath sounds are equal bilaterally. No adventitious lung sounds including wheezes rhonchi or crackles. Abdomen soft bowel sounds are heard. No masses or tenderness. Extremities are wrapped with bandages, but there is evidence of cellulitis, with chronic redness and erythema, extending up above the knee. Skin with significant cellulitis of the lower extremities. Neurologic examination is brief but nonfocal. - Labs CBC & Chem 7: 01/03/25 05:52 01/03/25 05:52 Labs: Abnormal Lab Results - Last 24 Hours (Table) 01/02/25 01/02/25 01/02/25 Range/Units 11:30 16:10 20:48 WBC (4.50-10.00) 10*3/uL RBC (4.40-5.60) 10*6/uL Hgb (13.0-17.0) g/dL Hct (39.6-50.0) % MCHC (32.0-37.0) g/dL MPV (9.5-12.2) fL Immature Gran # (0.00-0.04) 10*3/uL Carbon Dioxide (22-30) mmol/L BUN (9-20) mg/dL Creatinine (0.66-1.25) mg/dL Glucose (74-99) mg/dL POC Glucose (mg/dL) 145 H 157 H 219 H (70-110) mg/dL 01/03/25 01/03/25 01/03/25 Range/Units 05:52 05:52 06:15 WBC 22.68 H (4.50-10.00) 10*3/uL RBC 3.94 L (4.40-5.60) 10*6/uL Hgb 11.3 L (13.0-17.0) g/dL Hct 35.9 L (39.6-50.0) % MCHC 31.5 L (32.0-37.0) g/dL MPV 12.3 H (9.5-12.2) fL Immature Gran # 1.90 H (0.00-0.04) 10*3/uL Carbon Dioxide 17 L (22-30) mmol/L BUN 43 H (9-20) mg/dL Creatinine 1.47 H (0.66-1.25) mg/dL Glucose 131 H (74-99) mg/dL POC Glucose (mg/dL) 128 H (70-110) mg/dL Microbiology - Last 24 Hours (Table) 12/31/24 12:50 Gram Stain - Preliminary Leg - Left Wound Culture - Preliminary Proteus mirabilis Enterococcus faecalis Strep A 12/31/24 12:50 Anaerobic Culture - Preliminary Leg - Left 01/02/25 02:25 Gram Stain - Preliminary Toe - Right First Assessment and Plan Assessment: Severe sepsis, and cellulitis, with leg wounds, secondary to group A strep, Proteus, and Enterococcus. Chronic cellulitis of the lower extremities. Leukocytosis, secondary to sepsis, and cellulitis. Hypernatremia, secondary to dehydration. Acute kidney injury secondary to sepsis. Acute lactic acidosis, secondary to sepsis. Acute non-ST segment elevation myocardial infarction. Paroxysmal atrial fibrillation. Benign essential hypertension. History of hypothyroidism. Hyperlipidemia. Plan: Plan dated January 01, 2025. The patient is seen in room 262. The patient is getting LR at 75 cc an hour, and 2 L by nasal cannula. The patient continues on cefepime. Leg wound is showing evidence of gram-positive cocci. All labs, x-rays, and medications are reviewed. We will continue to follow the patient, make recommendations along the way. The patient's overall prognosis remains guarded. The patient could be considered for possible discharge out of the intensive care unit. The patient remains a full code. Dictation was produced using [employer] software. Please excuse any grammatical, word or spelling errors. Plan dated January 02, 2025. Wound cultures from the left leg show evidence of group A streptococci, Proteus species, and Enterococcus species. The patient continues on cefepime as per infectious diseases. We will continue to follow. The patient could be transferred out of the intensive care unit. He is currently on 2 L. He is getting lactated Ringer's at 10 cc an hour. Labs, x-rays, and all medications are reviewed. We will continue to follow the patient. Prognosis is guarded. Dictation was produced using [employer] software. Please excuse any grammatical, word or spelling errors. Plan dated January 03, 2025 The patient is seen today in room 262. He remains on 2 L. No additional IV fluid. He continues on cefepime and daptomycin as per infectious diseases. Left leg wound cultures show evidence of Proteus, group A strep, and Enterococcus. Labs, x-rays, and all medications are reviewed. We will continue to follow. Patient's prognosis is guarded. His legs are wrapped. The patient is stable for transfer out of the ICU. Dictation was produced using [employer] software. Please excuse any grammatical, word or spelling errors. Time with Patient: Less than 30
[2025-01-03 12:04] LABS: Glucose,Whole Blood 196 mg/dL (70-110)
[2025-01-03 13:38] LABS: Band Neutrophils % 5 %; Eosinophils # (M) 0.23 k/uL (0-0.7); Lymphocytes # (M) 1.36 k/uL (1.0-4.8); Monocytes # (M) 1.13 k/uL (0-1.0); Neutrophils # (M) 19.95 k/uL (1.3-7.7); Neutrophils % (M) 83 %; Nucleated Red Blood Cells 0 /100 WBC (0-0); Total Cells Counted 100
[2025-01-03 13:41] LABS: Platelet Count 197 10*3/uL (140-440); RBC Morphology Normal
--- NOTE | 2025-01-03 16:36 | PN ---
PROGRESS NOTE SUBJECTIVE: Carlos is a 74-year-old gentleman. We were consulted because of elevated troponin, this is secondary to sepsis and acute renal insufficiency. He is being treated with antibiotics. There has been a significant improvement in him clinically. MEDICATIONS: Currently on, 1. Aspirin. 2. Lipitor. 3. Insulin. 4. Synthroid. 5. Vancomycin. OBJECTIVE: VITAL SIGNS: Stable. O2 saturation is 99%. GENERAL: He is more alert, awake. CHEST: Reveals good air entry bilaterally. HEART: Reveals first and second heart sounds. Ejection systolic murmur in the aortic area. ABDOMEN: Soft. EXTREMITIES: Reveals bilateral cellulitis and mild edema. Echocardiogram shows preserved LV systolic function with moderate aortic stenosis. This was a technically suboptimal study. Labs show that the white cell count is still elevated. Hemoglobin is 11.2, BUN is 77, creatinine is 3.2. ASSESSMENT: 1. Elevated troponin secondary to sepsis. 2. Renal insufficiency. 3. Elevated troponin secondary to a combination of sepsis and renal insufficiency suggestive of a type 2 myocardial infarction. PLAN: Continue with supportive care. Continue with antibiotics. MMODL / IJN: [id number] /
[2025-01-03 17:21] LABS: Glucose,Whole Blood 192 mg/dL (70-110)
[2025-01-03 20:10] LABS: Glucose,Whole Blood 233 mg/dL (70-110)
--- NOTE | 2025-01-03 21:45 | P.PN ---
Subjective Progress Note Date: 01/02/25 patient 74-year-old gentleman with past medical history significant for COPD, atrial fibrillation hyperlipidemia, history of cellulitis of lower extremities who is currently resident of [facility] presents the ER for shortness of breath and fever. According to EMR, patient has been having increasing shortness of breath for the last day, patient also having fevers with Tmax 102.6. There is no complaint of chills. There is no complaint of chest pain. There was no complaint of orthopnea or PND. Patient has chronic erythema a of lower extremities.Initial lab work done in the ER showed WBC 27.73, hemoglobin 13.2, platelet count 451, D-dimer 1.59, sodium 148, potassium 4.8, BUN 58, creatinine 2.08, lactate 3.3, troponin 0.052 Influenza A not detected Influenza B not detected RSV not detected COVID-19 not detected EKG done in the ER showed heart rate of 12, ST depression in lead I and aVL, no T-wave inversions seen. Chest x-ray done in the ER showed no acute cardiopulmonary process Patient admitted to internal medicine service, patient was initially admitted to general medical floor but later transferred to ICU 12/31. Patient seen and examined. Labs reviewed showed WBC 25.99, hemoglobin 11.2, sodium 141, potassium 4.2, BUN 77, creatinine 3.22. Ultrasound of kidneys done showed no evidence of any obstructive uropathy Still spiking fever. States he feels slightly better 01/01/2025 Patient is in the MICU. Awake alert and oriented. No complaints of chest pain or shortness of breath. Patient has been afebrile. Admitted to hospital due to left lower extremity cellulitis and sepsis and acute kidney injury. Currently on antibiotics in the form of cefepime. Wound cultures growing Proteus and Enterococcus faecalis and Klebsiella. Laboratory data showed WBC 22.7 hemoglobin 11.9 platelets 269 sodium 140 potassium 4.0 chloride 107 bicarb is 21 BUN 56 and creatinine 2.05 and blood sugar 136. ID and critical care team is on board. Current medications reviewed. 01/02/2025 Patient is resting in the bed. Awake alert and oriented. Currently requiring 2 L oxygen via nasal cannula. Tolerating oral diet. On Ringer's lactate at 10 cc/h. Afebrile overnight. No cough or sputum production. Patient is on antibiotics in form of cefepime as per ID recommendations. Laboratory data showed WBC 27.3 hemoglobin 10.0 and platelets 304. Blood sugar is elevated. BUN 42 and creatinine 1.5. REVIEW OF SYSTEMS: CONSTITUTIONAL: As mentioned above CARDIOVASCULAR: No chest pain, no palpitations, no syncope. PULMONARY: No shortness of breath, no cough, GASTROINTESTINAL: No diarrhea, no nausea, no vomiting, no abdominal pain. NEUROLOGICAL: No headaches, no weakness, PHYSICAL EXAMINATION: GENERAL: The patient is alert, ill looking HEENT: Pupils are round and equally reacting to light. EOMI. No scleral icterus. No conjunctival pallor. Normocephalic, atraumatic. No pharyngeal erythema. No thyromegaly. CARDIOVASCULAR: S1 and S2 present. No murmurs, rubs, or gallops. PULMONARY: diminished breath in the bases bilaterally,, no wheezing or crackles. ABDOMEN: Soft, nontender, nondistended, normoactive bowel sounds. No palpable organomegaly. MUSCULOSKELETAL: Bandage of lower extremities EXTREMITIES: No cyanosis, clubbing, or pedal edema. NEUROLOGICAL: Gross neurological examination did not reveal any focal deficits. SKIN: No rashes. Assessment and plan Sepsis UTI Cellulitis of left lower extremity SIMRAN on CKD due to ATN with severe sepsis Elevated troponin, likely secondary to sepsis and SIMRAN Elevated D-Dimer, likely due to sepsis History of HFpEF, last known EF 55-60% in 2019 Hypertension Hyperlipidemia Hypothyroidism Hypernatremia Monitor vital signs Monitor CBC Monitor CMP Continue telemetry monitoring Follow-up on blood cultures Follow urine cultures Continue wound care Continue aspirin, Lipitor Continue breathing treatment Continue cefepime as per ID recommendations. strict I's and O's, daily weights 2D echo done showed preserved LV function, moderate aortic stenosis noted ID, critical care team and nephrology is following. Labs and medication were reviewed. Monitor labs and vitals. DVT and GI prophylaxis. Dictation was produced using [employer] dictation software. please excuse any grammatical, word or spelling errors. Objective - Vital Signs Vital signs: Vital Signs Temp 98.0 F 01/02/25 20:00 Pulse 83 01/02/25 20:48 Resp 18 01/02/25 20:00 BP 111/59 01/02/25 20:00 Pulse Ox 98 01/02/25 20:00 FiO2 Intake & Output 01/02/25 01/02/25 01/03/25 06:59 18:59 06:59 Intake Total 1620 1750 Output Total 1110 735 Balance 510 1015 Intake: IV 900 490 Cefepime 2 gm In Dextrose 200 5% in Water 100 ml @ 25 mls/hr IVPB Q12H [facility]ANTHA Rx#: [id number] DAPTOmycin 400 mg In 50 Sodium Chloride 0.9% 50 ml @ 100 mls/hr IVPB Q24HR SAMANTHA Rx#:[id number] KVO 240 Lactated Ringers 1,000 ml 900 @ 75 mls/hr IV .[id number] SAMANTHA Rx#:[id number] Oral 720 1260 Output: Urine 1110 735 Other: Voiding Method Indwelling Catheter Indwelling Catheter Indwelling Catheter - Labs CBC & Chem 7: 01/03/25 05:52 01/03/25 05:52 Labs: Abnormal Lab Results - Last 24 Hours (Table) 01/02/25 01/02/25 01/02/25 Range/Units 05:41 06:48 07:12 WBC 27.34 H (4.50-10.00) 10*3/uL RBC 3.45 L (4.40-5.60) 10*6/uL Hgb 10.0 L D (13.0-17.0) g/dL Hct 31.0 L (39.6-50.0) % Immature Gran # 0.46 H (0.00-0.04) 10*3/uL Neutrophils # (Manual) 23.79 H (1.3-7.7) k/uL Monocytes # (Manual) 1.09 H (0-1.0) k/uL Carbon Dioxide 20 L (22-30) mmol/L BUN 42 H (9-20) mg/dL Creatinine 1.50 H (0.66-1.25) mg/dL Glucose 137 H (74-99) mg/dL POC Glucose (mg/dL) 127 H (70-110) mg/dL 01/02/25 01/02/25 01/02/25 Range/Units 11:30 16:10 20:48 WBC (4.50-10.00) 10*3/uL RBC (4.40-5.60) 10*6/uL Hgb (13.0-17.0) g/dL Hct (39.6-50.0) % Immature Gran # (0.00-0.04) 10*3/uL Neutrophils # (Manual) (1.3-7.7) k/uL Monocytes # (Manual) (0-1.0) k/uL Carbon Dioxide (22-30) mmol/L BUN (9-20) mg/dL Creatinine (0.66-1.25) mg/dL Glucose (74-99) mg/dL POC Glucose (mg/dL) 145 H 157 H 219 H (70-110) mg/dL Microbiology - Last 24 Hours (Table) 12/31/24 12:50 Gram Stain - Preliminary Leg - Left Wound Culture - Preliminary Proteus mirabilis Enterococcus faecalis Strep A 12/31/24 12:50 Anaerobic Culture - Preliminary Leg - Left 01/02/25 02:25 Gram Stain - Preliminary Toe - Right First 12/29/24 21:13 Blood Culture - Preliminary Blood
--- NOTE | 2025-01-03 21:48 | P.PN ---
Subjective Progress Note Date: 01/03/25 patient 74-year-old gentleman with past medical history significant for COPD, atrial fibrillation hyperlipidemia, history of cellulitis of lower extremities who is currently resident of [facility] presents the ER for shortness of breath and fever. According to EMR, patient has been having increasing shortness of breath for the last day, patient also having fevers with Tmax 102.6. There is no complaint of chills. There is no complaint of chest pain. There was no complaint of orthopnea or PND. Patient has chronic erythema a of lower extremities.Initial lab work done in the ER showed WBC 27.73, hemoglobin 13.2, platelet count 451, D-dimer 1.59, sodium 148, potassium 4.8, BUN 58, creatinine 2.08, lactate 3.3, troponin 0.052 Influenza A not detected Influenza B not detected RSV not detected COVID-19 not detected EKG done in the ER showed heart rate of 12, ST depression in lead I and aVL, no T-wave inversions seen. Chest x-ray done in the ER showed no acute cardiopulmonary process Patient admitted to internal medicine service, patient was initially admitted to general medical floor but later transferred to ICU 12/31. Patient seen and examined. Labs reviewed showed WBC 25.99, hemoglobin 11.2, sodium 141, potassium 4.2, BUN 77, creatinine 3.22. Ultrasound of kidneys done showed no evidence of any obstructive uropathy Still spiking fever. States he feels slightly better 01/01/2025 Patient is in the MICU. Awake alert and oriented. No complaints of chest pain or shortness of breath. Patient has been afebrile. Admitted to hospital due to left lower extremity cellulitis and sepsis and acute kidney injury. Currently on antibiotics in the form of cefepime. Wound cultures growing Proteus and Enterococcus faecalis and Klebsiella. Laboratory data showed WBC 22.7 hemoglobin 11.9 platelets 269 sodium 140 potassium 4.0 chloride 107 bicarb is 21 BUN 56 and creatinine 2.05 and blood sugar 136. ID and critical care team is on board. Current medications reviewed. 01/02/2025 Patient is resting in the bed. Awake alert and oriented. Currently requiring 2 L oxygen via nasal cannula. Tolerating oral diet. On Ringer's lactate at 10 cc/h. Afebrile overnight. No cough or sputum production. Patient is on antibiotics in form of cefepime as per ID recommendations. Laboratory data showed WBC 27.3 hemoglobin 10.0 and platelets 304. Blood sugar is elevated. BUN 42 and creatinine 1.5. 01/03/2025 Patient is resting in the bed. Awake alert and oriented x 2-3. No complaints of chest pain or shortness of breath. Currently on 2 L oxygen via nasal cannula. Afebrile overnight. Continued on antibiotics and hospitalist remained daptomycin was added on 01/02/2025. Continued on insulin regimen for blood pressure control. Continued on breathing treatments. Laboratory data showed WBCs trending down to 22.6 hemoglobin 11.3 and platelets 197 BUN 43 and creatinine 1.47 blood sugar 131. Patient is being transferred to medical floor today. REVIEW OF SYSTEMS: CONSTITUTIONAL: As mentioned above CARDIOVASCULAR: No chest pain, no palpitations, no syncope. PULMONARY: No shortness of breath, no cough, GASTROINTESTINAL: No diarrhea, no nausea, no vomiting, no abdominal pain. NEUROLOGICAL: No headaches, no weakness, PHYSICAL EXAMINATION: GENERAL: The patient is alert, no acute distress HEENT: Pupils are round and equally reacting to light. EOMI. No scleral icterus. No conjunctival pallor. Normocephalic, atraumatic. No pharyngeal erythema. No thyromegaly. CARDIOVASCULAR: S1 and S2 present. No murmurs, rubs, or gallops. PULMONARY: diminished breath in the bases bilaterally,, no wheezing or crackles. ABDOMEN: Soft, nontender, nondistended, normoactive bowel sounds. No palpable organomegaly. MUSCULOSKELETAL: Left lower extremity Mo wrapped EXTREMITIES: No cyanosis, clubbing, or pedal edema. NEUROLOGICAL: Gross neurological examination did not reveal any focal deficits. SKIN: No rashes. Assessment and plan Sepsis UTI Cellulitis of left lower extremity. Wound continues going Enterococcus faecalis and Proteus and staph SIMRAN on CKD due to ATN with severe sepsis Elevated troponin, likely secondary to sepsis and SIMRAN Elevated D-Dimer, likely due to sepsis History of HFpEF, last known EF 55-60% in 2019 Hypertension Hyperlipidemia Hypothyroidism Hypernatremia Monitor vital signs Monitor CBC Monitor CMP Continue telemetry monitoring Follow-up on blood cultures Follow urine cultures Continue wound care Continue aspirin, Lipitor Continue breathing treatment Continue cefepime as per ID recommendations. strict I's and O's, daily weights 2D echo done showed preserved LV function, moderate aortic stenosis noted ID, critical care team and nephrology is following. Patient is being transferred to medical floor today. Labs and medication were reviewed. Monitor labs and vitals. DVT and GI prophylaxis. Dictation was produced using [employer] dictation software. please excuse any grammatical, word or spelling errors. Objective - Vital Signs Vital signs: Vital Signs Temp 99.9 F H 01/03/25 14:00 Pulse 88 01/03/25 16:09 Resp 20 01/03/25 14:00 BP 120/85 01/03/25 14:00 Pulse Ox 96 01/03/25 14:00 FiO2 Intake & Output 01/03/25 01/03/25 01/04/25 06:59 18:59 06:59 Intake Total 360 1110 Output Total 650 1050 Balance -290 60 Intake: IV 360 130 Cefepime 2 gm In Dextrose 100 5% in Water 100 ml @ 25 mls/hr IVPB Q12H [facility] Rx#: [id number] DAPTOmycin 400 mg In 50 Sodium Chloride 0.9% 50 ml @ 100 mls/hr IVPB Q24HR [facility] Rx#:[id number] KVO 260 80 Oral 980 Output: Urine 650 1050 Other: Voiding Method Indwelling Catheter Indwelling Catheter - Labs CBC & Chem 7: 01/03/25 05:52 01/03/25 05:52 Labs: Abnormal Lab Results - Last 24 Hours (Table) 01/02/25 01/03/25 01/03/25 Range/Units 20:48 05:52 05:52 WBC 22.68 H (4.50-10.00) 10*3/uL RBC 3.94 L (4.40-5.60) 10*6/uL Hgb 11.3 L (13.0-17.0) g/dL Hct 35.9 L (39.6-50.0) % MCHC 31.5 L (32.0-37.0) g/dL MPV 12.3 H (9.5-12.2) fL Immature Gran # 1.90 H (0.00-0.04) 10*3/uL Neutrophils # (Manual) 19.95 H (1.3-7.7) k/uL Monocytes # (Manual) 1.13 H (0-1.0) k/uL Carbon Dioxide 17 L (22-30) mmol/L BUN 43 H (9-20) mg/dL Creatinine 1.47 H (0.66-1.25) mg/dL Glucose 131 H (74-99) mg/dL POC Glucose (mg/dL) 219 H (70-110) mg/dL 01/03/25 01/03/25 01/03/25 Range/Units 06:15 12:02 17:20 WBC (4.50-10.00) 10*3/uL RBC (4.40-5.60) 10*6/uL Hgb (13.0-17.0) g/dL Hct (39.6-50.0) % MCHC (32.0-37.0) g/dL MPV (9.5-12.2) fL Immature Gran # (0.00-0.04) 10*3/uL Neutrophils # (Manual) (1.3-7.7) k/uL Monocytes # (Manual) (0-1.0) k/uL Carbon Dioxide (22-30) mmol/L BUN (9-20) mg/dL Creatinine (0.66-1.25) mg/dL Glucose (74-99) mg/dL POC Glucose (mg/dL) 128 H 196 H 192 H (70-110) mg/dL Microbiology - Last 24 Hours (Table) 01/02/25 02:25 Gram Stain - Preliminary Toe - Right First Wound Culture - Preliminary Proteus mirabilis 12/31/24 12:50 Gram Stain - Preliminary Leg - Left Wound Culture - Preliminary Proteus mirabilis Enterococcus faecalis Strep A 12/31/24 12:50 Anaerobic Culture - Preliminary Leg - Left
[2025-01-04 07:19] LABS: Glucose,Whole Blood 132 mg/dL (70-110)
[2025-01-04 10:32] LABS: HCT 29.8 % (39.6-50.0); HGB 9.5 g/dL (13.0-17.0); MCH 28.4 pg (27.0-32.0); MCHC 31.9 g/dL (32.0-37.0); Mean Platelet Volume 11.2 FL (9.5-12.2); NRBC Per 100 WBC 0.02 X 10*3/uL (0.00-0.01); Platelet Count 300 X 10*3/uL (140-440); RBC 3.35 X 10*6/uL (4.40-5.60); WBC 23.51 X 10*3/uL (4.50-10.00)
--- NOTE | 2025-01-04 10:40 | P.PN ---
Subjective Patient is seen in follow-up for acute kidney injury on chronic kidney disease. Renal function stable as of yesterday. Off IV fluids. Resting in bed. Oral intake fair. Vital signs are stable. General: No acute distress. HEENT: Head exam is unremarkable. On nasal cannula. LUNGS: Scattered rhonchi. HEART: Rate and Rhythm are regular. ABDOMEN: Nontender. EXTREMITITES: Lower extremities wrapped. No drainage. Erythema noted. 2+ edema. Objective - Vital Signs Vital signs: Vital Signs Temp 100.1 F H 01/04/25 01:05 Pulse 90 01/04/25 09:18 Resp 20 01/04/25 01:05 BP 120/65 01/04/25 01:05 Pulse Ox 95 01/04/25 01:05 FiO2 Intake & Output 01/03/25 01/04/25 01/04/25 18:59 06:59 18:59 Intake Total 1110 150 120 Output Total 1050 1675 Balance 60 -1525 120 Intake: IV 130 DAPTOmycin 400 mg In 50 Sodium Chloride 0.9% 50 ml @ 100 mls/hr IVPB Q24HR [facility] Rx#:[id number] KVO 80 Oral 980 150 120 Output: Urine 1050 1675 Other: Voiding Method Indwelling Catheter Indwelling Catheter - Labs CBC & Chem 7: 01/04/25 06:23 01/03/25 05:52 Labs: Abnormal Lab Results - Last 24 Hours (Table) 01/03/25 01/03/25 01/03/25 Range/Units 05:52 12:02 17:20 WBC (4.50-10.00) X 10*3/uL RBC (4.40-5.60) X 10*6/uL Hgb (13.0-17.0) g/dL Hct (39.6-50.0) % MCHC (32.0-37.0) g/dL RDW (11.5-14.5) % Neutrophils # (Manual) 19.95 H (1.3-7.7) k/uL Monocytes # (Manual) 1.13 H (0-1.0) k/uL NRBC/100 WBC Diff (0.00-0.01) X 10*3/uL POC Glucose (mg/dL) 196 H 192 H (70-110) mg/dL 05/03/2301/04/25 01/04/25 Range/Units 20:09 06:23 07:17 WBC 23.51 H (4.50-10.00) X 10*3/uL RBC 3.35 L (4.40-5.60) X 10*6/uL Hgb 9.5 L (13.0-17.0) g/dL Hct 29.8 L (39.6-50.0) % MCHC 31.9 L (32.0-37.0) g/dL RDW 17.0 H (11.5-14.5) % Neutrophils # (Manual) (1.3-7.7) k/uL Monocytes # (Manual) (0-1.0) k/uL NRBC/100 WBC Diff 0.02 H (0.00-0.01) X 10*3/uL POC Glucose (mg/dL) 233 H 132 H (70-110) mg/dL Microbiology - Last 24 Hours (Table) 01/02/25 02:25 Gram Stain - Preliminary Toe - Right First Wound Culture - Preliminary Proteus mirabilis Presumptive MRSA 12/29/24 21:13 Blood Culture - Final Blood 12/31/24 12:50 Gram Stain - Final Leg - Left Wound Culture - Final Proteus mirabilis Enterococcus faecalis Strep A Assessment and Plan Plan: Assessment: 1. Acute kidney injury secondary to ATN secondary to severe sepsis. Creatinine peaked at 3.22 this admission and is stable at 1.47 as of yesterday. No hydronephrosis noted on ultrasound. 2. Chronic kidney disease stage IIIa with baseline creatinine 1.1-1.3. 3. Hypernatremia from lack of oral water intake. Improved. 4. Severe sepsis secondary to lower extremity cellulitis and UTI. On antibiotics. ID following. 5. Diabetes mellitus. 6. Metabolic acidosis secondary to acute kidney injury and IV fluids. On oral bicarb. 7. Volume overload. Plan: Lasix 40 mg IV once today. Encourage oral intake. Avoid nephrotoxins. Continue to monitor renal function and urine output.
[2025-01-04 10:43] LABS: BUN/Creat Ratio 28.43 Ratio (12.00-20.00); Blood Urea Nitrogen 39.8 mg/dL (9.0-27.0); Calcium 8.6 mg/dL (8.7-10.3); Carbon Dioxide 20.4 mmol/L (21.6-31.8); Chloride 103 mmol/L (96-109); Glucose 141 mg/dL (70-110); Potassium 3.6 mmol/L (3.5-5.5); Sodium 136 mmol/L (135-145)
[2025-01-04] MEDS: FUROSEMIDE 10 MG/ML 4 ML VIAL IV STA (11:22)
[2025-01-04 11:53] LABS: Basophils # (M) 0 X 10*3/uL (0.00-0.10); Eosinophils # (M) 0 X 10*3/uL (0.04-0.35); Lymphocytes # (M) 2.59 X 10*3/uL (0.90-5.00); Monocytes # (M) 1.18 X 10*3/uL (0.20-1.00); Neutrophils # (M) 19.75 X 10*3/uL (1.80-7.70); Neutrophils % (M) 84 %
[2025-01-04 12:30] LABS: Glucose,Whole Blood 200 mg/dL (70-110)
--- NOTE | 2025-01-04 12:44 | P.PN ---
Subjective Progress Note Date: 01/04/25 This is a 74-year-old white male with history of chronic cellulitis of lower extremities, patient has not been seeking any medical attention or care to his cellulitis, patient was sent from [facility] care facility yesterday mostly with symptoms of fever shortness of breath, increased work of breathing and he had a temperature as high as 102.6 upon his initial evaluation in the ER. Workup in the ER included CBC which showed leukocytosis with WBC count of 27.7, hemoglobin 13.2 89.9% neutrophilia, slightly elevated D-dimer 1.59 hypernatremia with sodium of 148 bicarb 21 BUN is 58 creatinine 2.08, elevated lactic acid of 3.5 elevated troponin of 0.077, and abnormal urinalysis showing pyuria, large radha kocyte esterase, and negative nitrite. Viral screen was negative for influenza AB RSV and SARS. Chest x-ray on admission showed no evidence of any acute cardiopulmonary process. Patient was admitted to the regular medical floor, however the a team was called to evaluate this patient earlier today, and the patient was complaining of shortness of breath, he did receive fluid boluses upon admission for the diagnosis of sepsis, patient was given a dose of Lasix I was made aware of this patient and I recommended transfer to the ICU for management of his sepsis. That 2 likely sources of sepsis include bilateral lower extremity cellulitis, and possible urinary tract infection. But clinically the patient is clearly septic. Remained hemodynamically stable did not require any pressors. I saw this patient in the ICU, and he was alert, oriented, receiving antibiotics, and patient has cooling blankets for his temp as high as 102. Patient was seen today on 12/31/2024, remains in the ICU, continues to have intermittent fever with Tmax yesterday of 103 continues to have leukocytosis/worsening, clinically however the patient is feeling better. Remains on vancomycin and cefepime, blood cultures so far are negative urine cultures are so far negative patient remains on Tylenol and cooling blankets, remains on bronchodilators, hemodynamically the patient is stable and he is not requiring any pressors at least so far. Patient received multiple fluid boluses since admission, and he has good urine output today, did receive 1 dose of Lasix yesterday. WBC count is 25.99 hemoglobin 11.2 electrolytes are normal BUN is 77 creatinine 3.2 slight worsening is noted in his renal profile Progress note dated January 01, 2025. 74-year-old male who was seen in consultation a couple days ago. He was met with a diagnosis of sepsis. The patient is seen today in room 262. He was admitted on December 29. He came in with sepsis, and acute kidney injury. He is currently on 2 L of oxygen. He is getting lactated Ringer's at 75 cc an hour. He is currently on cefepime. His left leg wound is showing evidence of gram- positive cocci. Current laboratory data includes a white count of 22.7, hemoglobin 11.5, hematocrit 36.6, and a platelet count of 269,000. Sodium 140, potassium 4, chlorides 107, CO2 21, BUN 56, creatinine 2.05. Glucose is 162. Calcium is 8.5. Progress note dated January 02, 2025. 74-year-old male seen today in room 262. He was admitted with a diagnosis of sepsis. Currently, the patient is resting comfortably in room 262. He is on 2 L of oxygen. He is getting lactated Ringer's at 10 cc an hour. He continues on cefepime as per infectious diseases. The patient is an overflow patient, and can be transferred out of the intensive care unit. Labs today include a white count of 27.3, hemoglobin 10, hematocrit 31, and a normal platelet count. Sodium 139, potassium 4.7, chlorides 105, CO2 20, anion gap 14, BUN 42, creatinine 1.50. Glucose is 137. Calcium is 8.8. Wound cultures from December 31, of the left leg, show evidence of group A streptococci, Proteus mirabilis, and Enterococcus species. Progress note dated January 03, 2025. 74-year-old male again seen in room 262. Currently, the patient is resting comfortably in bed. He is on 2 L. No IV fluids. He continues on cefepime and daptomycin as per infectious diseases. Current laboratory data includes a white count of 22.7, hemoglobin 11.3, hematocrit 35.9, and a platelet count of 197,000. Sodium 137, potassium 4.3, chlorides 106, CO2 is 17, anion gap 14, BUN 43, creatinine 1.47. Glucose is 128. Calcium 8.9.Chest x-ray shows chronic changes, with mild cardiomegaly. The patient is seen today January 04, 2025 in follow-up on the regular medical floor. He was transferred out of the intensive care unit yesterday. He is currently sitting up in bed. Awake and alert in no acute distress. Maintaining O2 saturations in the 90s on 2 L/min per nasal cannula. Left leg wound cultures were positive for Proteus mirabilis, Enterococcus faecalis, strep a. Right first toe was positive for Proteus mirabilis, presumptive MRSA. White count 23.5. Hemoglobin 9.5. Platelets 2 300. Sodium 136. Potassium 3.6. Bicarb 20. BUN 40. Creatinine 1.4. Glucose 141. He is continued on DuoNeb inhalations, Symbicort. He is on heparin for DVT prophylaxis. Antibiotics in the form of daptomycin and cefepime. Objective - Vital Signs Vital signs: Vital Signs Temp 100.1 F H 01/04/25 01:05 Pulse 94 01/04/25 12:32 Resp 20 01/04/25 01:05 BP 120/65 01/04/25 01:05 Pulse Ox 95 01/04/25 01:05 FiO2 Intake & Output 01/03/25 01/04/25 01/04/25 18:59 06:59 18:59 Intake Total 1110 150 120 Output Total 1050 1675 Balance 60 -1525 120 Weight 118.1 kg Intake: IV 130 DAPTOmycin 400 mg In 50 Sodium Chloride 0.9% 50 ml @ 100 mls/hr IVPB Q24HR [facility] Rx#:[id number] KVO 80 Oral 980 150 120 Output: Urine 1050 1675 Other: Voiding Method Indwelling Catheter Indwelling Catheter Indwelling Catheter - Exam GENERAL EXAM: Alert, 74-year-old male, sitting up in bed, on 2 L nasal cannula, comfortable in no apparent distress. HEAD: Normocephalic. EYES: Normal reaction of pupils, equal size. NOSE: Clear with pink turbinates. THROAT: No erythema or exudates. NECK: No masses, no JVD. CHEST: No chest wall deformity. LUNGS: Equal air entry with no crackles, wheeze, rhonchi or dullness. CVS: S1 and S2 normal with no audible murmur, regular rhythm. ABDOMEN: No hepatosplenomegaly, normal bowel sounds, no guarding or rigidity. SPINE: No scoliosis or deformity SKIN: No rashes. Evidence of chronic venous stasis and open wounds of the bilateral lower extremities CENTRAL NERVOUS SYSTEM: No focal deficits, tone is normal in all 4 extremities. EXTREMITIES: Chronic redness/erythema of the bilateral lower extremities. No cl ubbing, no cyanosis. Peripheral pulses are intact. - Labs CBC & Chem 7: 01/04/25 06:23 01/04/25 06:23 Labs: Abnormal Lab Results - Last 24 Hours (Table) 01/03/25 01/03/25 01/03/25 Range/Units 05:52 17:20 20:09 WBC (4.50-10.00) X 10*3/uL RBC (4.40-5.60) X 10*6/uL Hgb (13.0-17.0) g/dL Hct (39.6-50.0) % MCHC (32.0-37.0) g/dL RDW (11.5-14.5) % Neutrophils # (Manual) 19.95 H (1.3-7.7) k/uL Monocytes # (Manual) 1.13 H (0-1.0) k/uL Eosinophils # (Manual) (0.04-0.35) X 10*3/uL NRBC/100 WBC Diff (0.00-0.01) X 10*3/uL Carbon Dioxide (21.6-31.8) mmol/L Anion Gap (4.00-12.00) mmol/L BUN (9.0-27.0) mg/dL Est GFR (CKD-EPI) (>=60) BUN/Creatinine Ratio (12.00-20.00) Ratio Glucose (70-110) mg/dL POC Glucose (mg/dL) 192 H 233 H (70-110) mg/dL Calcium (8.7-10.3) mg/dL 01/04/25 01/04/25 01/04/25 Range/Units 06:23 06:23 07:17 WBC 23.51 H (4.50-10.00) X 10*3/uL RBC 3.35 L (4.40-5.60) X 10*6/uL Hgb 9.5 L (13.0-17.0) g/dL Hct 29.8 L (39.6-50.0) % MCHC 31.9 L (32.0-37.0) g/dL RDW 17.0 H (11.5-14.5) % Neutrophils # (Manual) 19.75 H (1.3-7.7) k/uL Monocytes # (Manual) 1.18 H (0-1.0) k/uL Eosinophils # (Manual) 0 L (0.04-0.35) X 10*3/uL NRBC/100 WBC Diff 0.02 H (0.00-0.01) X 10*3/uL Carbon Dioxide 20.4 L (21.6-31.8) mmol/L Anion Gap 12.60 H (4.00-12.00) mmol/L BUN 39.8 H (9.0-27.0) mg/dL Est GFR (CKD-EPI) 53 L (>=60) BUN/Creatinine Ratio 28.43 H (12.00-20.00) Ratio Glucose 141 H (70-110) mg/dL POC Glucose (mg/dL) 132 H (70-110) mg/dL Calcium 8.6 L (8.7-10.3) mg/dL 01/04/25 Range/Units 12:28 WBC (4.50-10.00) X 10*3/uL RBC (4.40-5.60) X 10*6/uL Hgb (13.0-17.0) g/dL Hct (39.6-50.0) % MCHC (32.0-37.0) g/dL RDW (11.5-14.5) % Neutrophils # (Manual) (1.3-7.7) k/uL Monocytes # (Manual) (0-1.0) k/uL Eosinophils # (Manual) (0.04-0.35) X 10*3/uL NRBC/100 WBC Diff (0.00-0.01) X 10*3/uL Carbon Dioxide (21.6-31.8) mmol/L Anion Gap (4.00-12.00) mmol/L BUN (9.0-27.0) mg/dL Est GFR (CKD-EPI) (>=60) BUN/Creatinine Ratio (12.00-20.00) Ratio Glucose (70-110) mg/dL POC Glucose (mg/dL) 200 H (70-110) mg/dL Calcium (8.7-10.3) mg/dL Microbiology - Last 24 Hours (Table) 01/02/25 02:25 Anaerobic Culture - Final Toe - Right First 01/02/25 02:25 Gram Stain - Preliminary Toe - Right First Wound Culture - Preliminary Proteus mirabilis Presumptive MRSA 12/29/24 21:13 Blood Culture - Final Blood 12/31/24 12:50 Gram Stain - Final Leg - Left Wound Culture - Final Proteus mirabilis Enterococcus faecalis Strep A Assessment and Plan Assessment: Severe sepsis, and cellulitis, with leg wounds, secondary to group A strep, Proteus mirabilis, and Enterococcus faecalis Right first toe positive for Proteus mirabilis and presumptive MRSA Chronic cellulitis of the lower extremities. Leukocytosis, secondary to sepsis, and cellulitis. Hypernatremia, secondary to dehydration. Acute kidney injury secondary to sepsis. Acute lactic acidosis, secondary to sepsis. Acute non-ST segment elevation myocardial infarction. Paroxysmal atrial fibrillation. Benign essential hypertension. History of hypothyroidism. Hyperlipidemia. Plan: The patient was seen and evaluated Currently on 2 L nasal cannula Transferred out of the ICU yesterday Remains on cefepime and daptomycin Heparin for DVT prophylaxis Titrate down/off the FiO2 as tolerated We will see the patient on a as needed basis This patient was seen independently by the pulmonary nurse practitioner addressing pulmonary/critical care issues I have personally seen and examined the patient, performed the documentation and the assessment and plan as written. Number of minutes spent on the visit: 25 Dictation was produced using [employer] dictation software. Please excuse any grammatical, word or spelling errors.
--- NOTE | 2025-01-04 14:07 | P.PN ---
Subjective Progress Note Date: 01/04/25 patient 74-year-old gentleman with past medical history significant for COPD, atrial fibrillation hyperlipidemia, history of cellulitis of lower extremities who is currently resident of [facility] presents the ER for shortness of breath and fever. According to EMR, patient has been having increasing shortness of breath for the last day, patient also having fevers with Tmax 102.6. There is no complaint of chills. There is no complaint of chest pain. There was no complaint of orthopnea or PND. Patient has chronic erythema a of lower extremities.Initial lab work done in the ER showed WBC 27.73, hemoglobin 13.2, platelet count 451, D-dimer 1.59, sodium 148, potassium 4.8, BUN 58, creatinine 2.08, lactate 3.3, troponin 0.052 Influenza A not detected Influenza B not detected RSV not detected COVID-19 not detected EKG done in the ER showed heart rate of 12, ST depression in lead I and aVL, no T-wave inversions seen. Chest x-ray done in the ER showed no acute cardiopulmonary process Patient admitted to internal medicine service, patient was initially admitted to general medical floor but later transferred to ICU 12/31. Patient seen and examined. Labs reviewed showed WBC 25.99, hemoglobin 11.2, sodium 141, potassium 4.2, BUN 77, creatinine 3.22. Ultrasound of kidneys done showed no evidence of any obstructive uropathy Still spiking fever. States he feels slightly better 01/01/2025 Patient is in the MICU. Awake alert and oriented. No complaints of chest pain or shortness of breath. Patient has been afebrile. Admitted to hospital due to left lower extremity cellulitis and sepsis and acute kidney injury. Currently on antibiotics in the form of cefepime. Wound cultures growing Proteus and Enterococcus faecalis and Klebsiella. Laboratory data showed WBC 22.7 hemoglobin 11.9 platelets 269 sodium 140 potassium 4.0 chloride 107 bicarb is 21 BUN 56 and creatinine 2.05 and blood sugar 136. ID and critical care team is on board. Current medications reviewed. 01/02/2025 Patient is resting in the bed. Awake alert and oriented. Currently requiring 2 L oxygen via nasal cannula. Tolerating oral diet. On Ringer's lactate at 10 cc/h. Afebrile overnight. No cough or sputum production. Patient is on antibiotics in form of cefepime as per ID recommendations. Laboratory data showed WBC 27.3 hemoglobin 10.0 and platelets 304. Blood sugar is elevated. BUN 42 and creatinine 1.5. 01/03/2025 Patient is resting in the bed. Awake alert and oriented x 2-3. No complaints of chest pain or shortness of breath. Currently on 2 L oxygen via nasal cannula. Afebrile overnight. Continued on antibiotics and hospitalist remained daptomycin was added on 01/02/2025. Continued on insulin regimen for blood pressure control. Continued on breathing treatments. Laboratory data showed WBCs trending down to 22.6 hemoglobin 11.3 and platelets 197 BUN 43 and creatinine 1.47 blood sugar 131. Patient is being transferred to medical floor today. 01/04/2025 Patient is in the medical floor. Currently lying in the bed. Awake alert and oriented. Requiring 2 L oxygen via nasal cannula. Patient is being continued on antibiotics in the form of cefepime and daptomycin. ID is on board. Continued on wound care. Lab data showed WBC 23.4 hemoglobin 9.1 and platelets 300 sodium 136 potassium 3.6 chloride 103 bicarb is 20.4 BUN 39.8 and creatinine 1.4 and blood sugar 141 and calcium 8.6. ID nephrology and pulmonary is on board. REVIEW OF SYSTEMS: CONSTITUTIONAL: As mentioned above CARDIOVASCULAR: No chest pain, no palpitations, no syncope. PULMONARY: No shortness of breath, no cough, GASTROINTESTINAL: No diarrhea, no nausea, no vomiting, no abdominal pain. NEUROLOGICAL: No headaches, no weakness, PHYSICAL EXAMINATION: GENERAL: The patient is alert, no acute distress HEENT: Pupils are round and equally reacting to light. EOMI. No scleral icterus. No conjunctival pallor. Normocephalic, atraumatic. No pharyngeal erythema. No thyromegaly. CARDIOVASCULAR: S1 and S2 present. No murmurs, rubs, or gallops. PULMONARY: diminished breath in the bases bilaterally,, no wheezing or crackles. ABDOMEN: Soft, nontender, nondistended, normoactive bowel sounds. No palpable organomegaly. MUSCULOSKELETAL: Left lower extremity extensive cellulitis and redness and swelling. EXTREMITIES: No cyanosis, clubbing, or pedal edema. NEUROLOGICAL: Gross neurological examination did not reveal any focal deficits. SKIN: No rashes. Assessment and plan Sepsis UTI Cellulitis of left lower extremity. Wound continues going Enterococcus faecalis and Proteus and staph SIMRAN on CKD due to ATN with severe sepsis Elevated troponin, likely secondary to sepsis and SIMRAN Elevated D-Dimer, likely due to sepsis History of HFpEF, last known EF 55-60% in 2019 Hypertension Hyperlipidemia Hypothyroidism Hypernatremia Monitor vital signs Monitor CBC Monitor CMP Continue telemetry monitoring Follow-up on blood cultures Follow urine cultures Continue wound care Continue aspirin, Lipitor Continue breathing treatment Continue cefepime and daptomycin as per ID recommendations. strict I's and O's, daily weights 2D echo done showed preserved LV function, moderate aortic stenosis noted ID, critical care team and nephrology is following. Patient is being transferred to medical floor today. Labs and medication were reviewed. Monitor labs and vitals. DVT and GI prophylaxis. Dictation was produced using [employer] dictation software. please excuse any grammatical, word or spelling errors. Objective - Vital Signs Vital signs: Vital Signs Temp 98.2 F 01/04/25 12:39 Pulse 92 01/04/25 12:44 Resp 24 01/04/25 12:39 BP 122/65 01/04/25 12:39 Pulse Ox 93 L 01/04/25 12:39 FiO2 Intake & Output 01/03/25 01/04/25 01/04/25 18:59 06:59 18:59 Intake Total 1110 150 120 Output Total 1050 1675 Balance 60 -1525 120 Weight 118.1 kg Intake: IV 130 DAPTOmycin 400 mg In 50 Sodium Chloride 0.9% 50 ml @ 100 mls/hr IVPB Q24HR [facility] Rx#:[id number] KVO 80 Oral 980 150 120 Output: Urine 1050 1675 Other: Voiding Method Indwelling Catheter Indwelling Catheter Indwelling Catheter - Labs CBC & Chem 7: 01/04/25 06:23 01/04/25 06:23 Labs: Abnormal Lab Results - Last 24 Hours (Table) 01/03/25 01/03/25 01/04/25 Range/Units 17:20 20:09 06:23 WBC 23.51 H (4.50-10.00) X 10*3/uL RBC 3.35 L (4.40-5.60) X 10*6/uL Hgb 9.5 L (13.0-17.0) g/dL Hct 29.8 L (39.6-50.0) % MCHC 31.9 L (32.0-37.0) g/dL RDW 17.0 H (11.5-14.5) % Neutrophils # (Manual) 19.75 H (1.80-7.70) X 10*3/uL Monocytes # (Manual) 1.18 H (0.20-1.00) X 10*3/uL Eosinophils # (Manual) 0 L (0.04-0.35) X 10*3/uL NRBC/100 WBC Diff 0.02 H (0.00-0.01) X 10*3/uL Carbon Dioxide (21.6-31.8) mmol/L Anion Gap (4.00-12.00) mmol/L BUN (9.0-27.0) mg/dL Est GFR (CKD-EPI) (>=60) BUN/Creatinine Ratio (12.00-20.00) Ratio Glucose (70-110) mg/dL POC Glucose (mg/dL) 192 H 233 H (70-110) mg/dL Calcium (8.7-10.3) mg/dL 01/04/25 01/04/25 01/04/25 Range/Units 06:23 07:17 12:28 WBC (4.50-10.00) X 10*3/uL RBC (4.40-5.60) X 10*6/uL Hgb (13.0-17.0) g/dL Hct (39.6-50.0) % MCHC (32.0-37.0) g/dL RDW (11.5-14.5) % Neutrophils # (Manual) (1.80-7.70) X 10*3/uL Monocytes # (Manual) (0.20-1.00) X 10*3/uL Eosinophils # (Manual) (0.04-0.35) X 10*3/uL NRBC/100 WBC Diff (0.00-0.01) X 10*3/uL Carbon Dioxide 20.4 L (21.6-31.8) mmol/L Anion Gap 12.60 H (4.00-12.00) mmol/L BUN 39.8 H (9.0-27.0) mg/dL Est GFR (CKD-EPI) 53 L (>=60) BUN/Creatinine Ratio 28.43 H (12.00-20.00) Ratio Glucose 141 H (70-110) mg/dL POC Glucose (mg/dL) 132 H 200 H (70-110) mg/dL Calcium 8.6 L (8.7-10.3) mg/dL Microbiology - Last 24 Hours (Table) 01/02/25 02:25 Anaerobic Culture - Final Toe - Right First 01/02/25 02:25 Gram Stain - Preliminary Toe - Right First Wound Culture - Preliminary Proteus mirabilis Presumptive MRSA 12/29/24 21:13 Blood Culture - Final Blood 12/31/24 12:50 Gram Stain - Final Leg - Left Wound Culture - Final Proteus mirabilis Enterococcus faecalis Strep A
--- NOTE | 2025-01-04 14:26 | P.PN ---
Subjective Progress Note Date: 01/03/25 Principal diagnosis: Reason for follow-up is left lower extremity cellulitis Patient is a 74-year-old male with a past medical history significant for hypertension hyperlipidemia heart failure atrial fibrillation renal disorder, patient has been brought into the hospital from a local [facility] concerning for fever shortness of breath and the patient was noticed to have increasing swelling and redness to the left lower extremity has been diagnosed with cellulitis prompted this consultation. On today's evaluation that is 01/03/2025, the patient continues to be afebrile, the patient is on 3 L current oxygen and breathing comfortably, the Pt denies having any chest pain or cough, the patient denies having any abdominal pain no vomiting or any diarrhea or any worsening pain to the left lower extremity. Patient white count is down to 22.68 creatinine is 1.47 Objective - Vital Signs Vital signs: Vital Signs Temp 99.5 F 01/03/25 08:00 Pulse 80 01/03/25 12:17 Resp 20 01/03/25 08:00 BP 109/53 01/03/25 08:00 Pulse Ox 96 01/03/25 08:00 FiO2 Intake & Output 01/02/25 01/03/25 01/03/25 18:59 06:59 18:59 Intake Total 1750 360 50 Output Total 735 650 525 Balance 1010 -752 -335 Intake: IV 490 360 50 Cefepime 2 gm In Dextrose 200 100 5% in Water 100 ml @ 25 mls/hr IVPB Q12H [facility] Rx#: [id number] DAPTOmycin 400 mg In 50 50 Sodium Chloride 0.9% 50 ml @ 100 mls/hr IVPB Q24HR [facility] Rx#:[id number] KVO 240 260 Oral 1260 Output: Urine 735 650 525 Other: Voiding Method Indwelling Catheter Indwelling Catheter - Exam GENERAL DESCRIPTION: An elderly male lying in bed in no distress RESPIRATORY SYSTEM: Unlabored breathing , decreased breath sounds at bases HEART: S1 S2 regular rate and rhythm , ABDOMEN: Soft , no tenderness EXTREMITIES: Lower extremity with extensive swelling redness some drainage of the dressing - Labs CBC & Chem 7: 01/04/25 06:23 01/04/25 06:23 Labs: Abnormal Lab Results - Last 24 Hours (Table) 01/02/25 01/02/25 01/03/25 Range/Units 16:10 20:48 05:52 WBC 22.68 H (4.50-10.00) 10*3/uL RBC 3.94 L (4.40-5.60) 10*6/uL Hgb 11.3 L (13.0-17.0) g/dL Hct 35.9 L (39.6-50.0) % MCHC 31.5 L (32.0-37.0) g/dL MPV 12.3 H (9.5-12.2) fL Immature Gran # 1.90 H (0.00-0.04) 10*3/uL Carbon Dioxide (22-30) mmol/L BUN (9-20) mg/dL Creatinine (0.66-1.25) mg/dL Glucose (74-99) mg/dL POC Glucose (mg/dL) 157 H 219 H (70-110) mg/dL 01/03/25 01/03/25 01/03/25 Range/Units 05:52 06:15 12:02 WBC (4.50-10.00) 10*3/uL RBC (4.40-5.60) 10*6/uL Hgb (13.0-17.0) g/dL Hct (39.6-50.0) % MCHC (32.0-37.0) g/dL MPV (9.5-12.2) fL Immature Gran # (0.00-0.04) 10*3/uL Carbon Dioxide 17 L (22-30) mmol/L BUN 43 H (9-20) mg/dL Creatinine 1.47 H (0.66-1.25) mg/dL Glucose 131 H (74-99) mg/dL POC Glucose (mg/dL) 128 H 196 H (70-110) mg/dL Microbiology - Last 24 Hours (Table) 01/02/25 02:25 Gram Stain - Preliminary Toe - Right First Wound Culture - Preliminary Proteus mirabilis 12/31/24 12:50 Gram Stain - Preliminary Leg - Left Wound Culture - Preliminary Proteus mirabilis Enterococcus faecalis Strep A 12/31/24 12:50 Anaerobic Culture - Preliminary Leg - Left Assessment and Plan (1) Cellulitis of left leg Current Visit: Yes Status: Acute Code(s): L03.116 - CELLULITIS OF LEFT LOWER LIMB SNOMED Code(s): 59420437173087653 (2) Sepsis Current Visit: Yes Status: Acute Code(s): A41.9 - SEPSIS, UNSPECIFIED ORGANISM SNOMED Code(s): 21570975 (3) Chronic kidney disease Current Visit: Yes Status: Chronic Priority: Medium Code(s): N18.9 - CHRONIC KIDNEY DISEASE, UNSPECIFIED SNOMED Code(s): 976745686 Plan: 1patient presented hospital with sepsis in this patient who did have fever tachycardia elevated white count meeting criteria for SIRS source is left lower extremity cellulitis in this patient did have diffuse swelling and redness some ruptured blister and evidence of athlete's foot all pointing towards likely gram-positive skin darren such as strep 2-patient with a chronic kidney disease worsening creatinine high risk of nephrotoxicity from vancomycin which was discontinued 3-patient culture grew strep Proteus present MRSA and Enterococcus 4patient is currently being treated with cefepime and daptomycin and monitor clinical course closely Dictation was produced using [employer] dictation software. please excuse any grammatical, word or spelling errors. Time with Patient: Less than 30
--- NOTE | 2025-01-04 14:27 | P.PN ---
Subjective Progress Note Date: 01/04/25 Principal diagnosis: Reason for follow-up is left lower extremity cellulitis Patient is a 74-year-old male with a past medical history significant for hypertension hyperlipidemia heart failure atrial fibrillation renal disorder, patient has been [facility] into [facility] for fever shortness of breath and the patient was noticed to have increasing swelling and redness to the left lower extremity has been diagnosed with cellulitis prompted this consultation. On today's evaluation that is 01/04/2025, Patient is afebrile patient is currently on 3 L nasal oxygen and denies having any shortness of breath, the patient denies any chest pain or cough, the patient denies any nausea vomiting did not have any abdominal pain and no diarrhea. Patient white count slightly up to 23.51 creatinine is 1.4 local culture growing Proteus and MRSA Objective - Vital Signs Vital signs: Vital Signs Temp 98.2 F 01/04/25 12:39 Pulse 92 01/04/25 12:44 Resp 24 01/04/25 12:39 BP 122/65 01/04/25 12:39 Pulse Ox 93 L 01/04/25 12:39 FiO2 Intake & Output 01/03/25 01/04/25 01/04/25 18:59 06:59 18:59 Intake Total 1110 150 120 Output Total 1050 1675 Balance 60 -1525 120 Weight 118.1 kg Intake: IV 130 DAPTOmycin 400 mg In 50 Sodium Chloride 0.9% 50 ml @ 100 mls/hr IVPB Q24HR [facility] Rx#:[id number] KVO 80 Oral 980 150 120 Output: Urine 1050 1675 Other: Voiding Method Indwelling Catheter Indwelling Catheter Indwelling Catheter - Exam GENERAL DESCRIPTION: An elderly male lying in bed in no distress RESPIRATORY SYSTEM: Unlabored breathing , decreased breath sounds at bases HEART: S1 S2 regular rate and rhythm , ABDOMEN: Soft , no tenderness EXTREMITIES: Lower extremity with extensive swelling redness some drainage of th e dressing - Labs CBC & Chem 7: 01/04/25 06:23 01/04/25 06:23 Labs: Abnormal Lab Results - Last 24 Hours (Table) 01/03/25 01/03/25 01/03/25 Range/Units 05:52 17:20 20:09 WBC (4.50-10.00) X 10*3/uL RBC (4.40-5.60) X 10*6/uL Hgb (13.0-17.0) g/dL Hct (39.6-50.0) % MCHC (32.0-37.0) g/dL RDW (11.5-14.5) % Neutrophils # (Manual) 19.95 H (1.3-7.7) k/uL Monocytes # (Manual) 1.13 H (0-1.0) k/uL Eosinophils # (Manual) (0.04-0.35) X 10*3/uL NRBC/100 WBC Diff (0.00-0.01) X 10*3/uL Carbon Dioxide (21.6-31.8) mmol/L Anion Gap (4.00-12.00) mmol/L BUN (9.0-27.0) mg/dL Est GFR (CKD-EPI) (>=60) BUN/Creatinine Ratio (12.00-20.00) Ratio Glucose (70-110) mg/dL POC Glucose (mg/dL) 192 H 233 H (70-110) mg/dL Calcium (8.7-10.3) mg/dL 01/04/25 01/04/25 01/04/25 Range/Units 06:23 06:23 07:17 WBC 23.51 H (4.50-10.00) X 10*3/uL RBC 3.35 L (4.40-5.60) X 10*6/uL Hgb 9.5 L (13.0-17.0) g/dL Hct 29.8 L (39.6-50.0) % MCHC 31.9 L (32.0-37.0) g/dL RDW 17.0 H (11.5-14.5) % Neutrophils # (Manual) 19.75 H (1.3-7.7) k/uL Monocytes # (Manual) 1.18 H (0-1.0) k/uL Eosinophils # (Manual) 0 L (0.04-0.35) X 10*3/uL NRBC/100 WBC Diff 0.02 H (0.00-0.01) X 10*3/uL Carbon Dioxide 20.4 L (21.6-31.8) mmol/L Anion Gap 12.60 H (4.00-12.00) mmol/L BUN 39.8 H (9.0-27.0) mg/dL Est GFR (CKD-EPI) 53 L (>=60) BUN/Creatinine Ratio 28.43 H (12.00-20.00) Ratio Glucose 141 H (70-110) mg/dL POC Glucose (mg/dL) 132 H (70-110) mg/dL Calcium 8.6 L (8.7-10.3) mg/dL 01/04/25 Range/Units 12:28 WBC (4.50-10.00) X 10*3/uL RBC (4.40-5.60) X 10*6/uL Hgb (13.0-17.0) g/dL Hct (39.6-50.0) % MCHC (32.0-37.0) g/dL RDW (11.5-14.5) % Neutrophils # (Manual) (1.3-7.7) k/uL Monocytes # (Manual) (0-1.0) k/uL Eosinophils # (Manual) (0.04-0.35) X 10*3/uL NRBC/100 WBC Diff (0.00-0.01) X 10*3/uL Carbon Dioxide (21.6-31.8) mmol/L Anion Gap (4.00-12.00) mmol/L BUN (9.0-27.0) mg/dL Est GFR (CKD-EPI) (>=60) BUN/Creatinine Ratio (12.00-20.00) Ratio Glucose (70-110) mg/dL POC Glucose (mg/dL) 200 H (70-110) mg/dL Calcium (8.7-10.3) mg/dL Microbiology - Last 24 Hours (Table) 01/02/25 02:25 Anaerobic Culture - Final Toe - Right First 01/02/25 02:25 Gram Stain - Preliminary Toe - Right First Wound Culture - Preliminary Proteus mirabilis Presumptive MRSA 12/29/24 21:13 Blood Culture - Final Blood 12/31/24 12:50 Gram Stain - Final Leg - Left Wound Culture - Final Proteus mirabilis Enterococcus faecalis Strep A Assessment and Plan (1) Cellulitis of left leg Current Visit: Yes Status: Acute Code(s): L03.116 - CELLULITIS OF LEFT LOWER LIMB SNOMED Code(s): 75309951689926246 (2) Sepsis Current Visit: Yes Status: Acute Code(s): A41.9 - SEPSIS, UNSPECIFIED ORGANISM SNOMED Code(s): 49435820 (3) Chronic kidney disease Current Visit: Yes Status: Chronic Priority: Medium Code(s): N18.9 - CHRONIC KIDNEY DISEASE, UNSPECIFIED SNOMED Code(s): 831256285 Plan: 1patient presented hospital with sepsis in this patient who did have fever tachycardia elevated white count meeting criteria for SIRS source is left lower extremity cellulitis in this patient did have diffuse swelling and redness some ruptured blister and evidence of athlete's foot all pointing towards likely gram-positive skin darren such as strep 2-patient with a chronic kidney disease worsening creatinine high risk of nephrotoxicity from vancomycin which was discontinued 3-patient culture grew strep Proteus present MRSA and Enterococcus 4patient is afebrile white count is slightly up today that need to be monitored closely for now continue with cefepime and daptomycin and monitor clinical course closely Dictation was produced using [email or web address] dictation software. please excuse any grammatical, word or spelling errors. Time with Patient: Less than 30
[2025-01-04] MEDS: POTASSIUM CHLORIDE ER 20 MEQ TAB.ER PO STA (16:01)
[2025-01-04 17:19] LABS: Glucose,Whole Blood 200 mg/dL (70-110)
[2025-01-04 20:40] LABS: Glucose,Whole Blood 214 mg/dL (70-110)
[2025-01-05 07:38] LABS: Glucose,Whole Blood 171 mg/dL (70-110)
[2025-01-05 10:32] LABS: BUN/Creat Ratio 33.92 Ratio (12.00-20.00); Blood Urea Nitrogen 44.1 mg/dL (9.0-27.0); Calcium 9.3 mg/dL (8.7-10.3); Carbon Dioxide 24.8 mmol/L (21.6-31.8); Chloride 105 mmol/L (96-109); Glucose 179 mg/dL (70-110); Magnesium 2.3 mg/dL (1.5-2.4); Sodium 141 mmol/L (135-145)
--- NOTE | 2025-01-05 10:39 | P.PN ---
Subjective Patient is seen in follow-up for acute kidney injury on chronic kidney disease. Renal function little better. Status post IV Lasix yesterday. Nonoliguric. Resting in bed. Oral intake fair. Vital signs are stable. General: No acute distress. HEENT: Head exam is unremarkable. On nasal cannula. LUNGS: Scattered rhonchi. HEART: Rate and Rhythm are regular. ABDOMEN: Nontender. EXTREMITITES: Lower extremities wrapped. No drainage. Erythema noted. 2+ edema. Objective - Vital Signs Vital signs: Vital Signs Temp 98.3 F 01/05/25 08:00 Pulse 87 01/05/25 08:00 Resp 23 01/05/25 08:00 BP 145/71 01/05/25 08:00 Pulse Ox 93 L 01/05/25 08:00 FiO2 Intake & Output 01/04/25 01/05/25 01/05/25 18:59 06:59 18:59 Intake Total 120 590 Output Total 2500 1000 350 Balance -2380 -410 -350 Weight 118.1 kg Intake: Oral 120 590 Output: Urine 2500 1000 350 Other: Voiding Method Indwelling Catheter Indwelling Catheter Indwelling Catheter - Labs CBC & Chem 7: 01/04/25 06:23 01/05/25 06:22 Labs: Abnormal Lab Results - Last 24 Hours (Table) 01/04/25 01/04/25 01/04/25 Range/Units 06:23 06:23 12:28 Neutrophils # (Manual) 19.75 H (1.80-7.70) X 10*3/uL Monocytes # (Manual) 1.18 H (0.20-1.00) X 10*3/uL Eosinophils # (Manual) 0 L (0.04-0.35) X 10*3/uL Carbon Dioxide 20.4 L (21.6-31.8) mmol/L Anion Gap 12.60 H (4.00-12.00) mmol/L BUN 39.8 H (9.0-27.0) mg/dL Est GFR (CKD-EPI) 53 L (>=60) BUN/Creatinine Ratio 28.43 H (12.00-20.00) Ratio Glucose 141 H (70-110) mg/dL POC Glucose (mg/dL) 200 H (70-110) mg/dL Calcium 8.6 L (8.7-10.3) mg/dL 01/04/25 01/04/25 01/05/25 Range/Units 17:17 20:39 06:22 Neutrophils # (Manual) (1.80-7.70) X 10*3/uL Monocytes # (Manual) (0.20-1.00) X 10*3/uL Eosinophils # (Manual) (0.04-0.35) X 10*3/uL Carbon Dioxide (21.6-31.8) mmol/L Anion Gap (4.00-12.00) mmol/L BUN 44.1 H (9.0-27.0) mg/dL Est GFR (CKD-EPI) 58 L (>=60) BUN/Creatinine Ratio 33.92 H (12.00-20.00) Ratio Glucose 179 H (70-110) mg/dL POC Glucose (mg/dL) 200 H 214 H (70-110) mg/dL Calcium (8.7-10.3) mg/dL 01/05/25 Range/Units 07:35 Neutrophils # (Manual) (1.80-7.70) X 10*3/uL Monocytes # (Manual) (0.20-1.00) X 10*3/uL Eosinophils # (Manual) (0.04-0.35) X 10*3/uL Carbon Dioxide (21.6-31.8) mmol/L Anion Gap (4.00-12.00) mmol/L BUN (9.0-27.0) mg/dL Est GFR (CKD-EPI) (>=60) BUN/Creatinine Ratio (12.00-20.00) Ratio Glucose (70-110) mg/dL POC Glucose (mg/dL) 171 H (70-110) mg/dL Calcium (8.7-10.3) mg/dL Microbiology - Last 24 Hours (Table) 01/02/25 02:25 Gram Stain - Final Toe - Right First Wound Culture - Final Proteus mirabilis Methicillin resist S. aureus 12/31/24 12:50 Anaerobic Culture - Final Leg - Left 01/02/25 02:25 Anaerobic Culture - Final Toe - Right First Assessment and Plan Plan: Assessment: 1. Acute kidney injury secondary to ATN secondary to severe sepsis. Creatinine peaked at 3.22 this admission and improved to 1.3 yesterday. No hydronephrosis noted on ultrasound. 2. Chronic kidney disease stage IIIa with baseline creatinine 1.1-1.3. 3. Hypernatremia from lack of oral water intake. Improved. 4. Severe sepsis secondary to lower extremity cellulitis and UTI. On antibiotics. ID following. 5. Diabetes mellitus. 6. Metabolic acidosis secondary to acute kidney injury and IV fluids. On oral bicarb. Better. 7. Volume overload. Better with diuresis. Plan: Add IV Lasix 40 mg once daily. Encourage oral intake. Avoid nephrotoxins. Continue to monitor renal function and urine output.
[2025-01-05] MEDS: FUROSEMIDE 10 MG/ML 4 ML VIAL IV SCH (11:24)
[2025-01-05 12:35] LABS: Glucose,Whole Blood 198 mg/dL (70-110)
--- NOTE | 2025-01-05 13:28 | P.PN ---
Subjective Progress Note Date: 01/05/25 Principal diagnosis: Reason for follow-up is left lower extremity cellulitis Patient is a 74-year-old male with a past medical history significant for hypertension hyperlipidemia heart failure atrial fibrillation renal disorder, patient has been brought into the hospital from a local skilled nursing concerning for fever shortness of breath and the patient was noticed to have increasing swelling and redness to the left lower extremity has been diagnosed with cellulitis prompted this consultation. On today's evaluation that is 01/05/2025, patient has been afebrile, patient is breathing comfortably and is currently on 3 L nasal cannula oxygen denies any chest pain or cough mention feeling lousy nausea but no vomiting no abdominal pain or any worsening pain in the left lower extremity. Patient did have a creatinine 1.3 local culture with a Proteus MRSA Objective - Vital Signs Vital signs: Vital Signs Temp 98.3 F 01/05/25 08:00 Pulse 92 01/05/25 11:47 Resp 23 01/05/25 08:00 BP 145/71 01/05/25 08:00 Pulse Ox 93 L 01/05/25 08:00 FiO2 Intake & Output 01/04/25 01/05/25 01/05/25 18:59 06:59 18:59 Intake Total 120 590 Output Total 2500 1000 350 Balance -2380 -410 -350 Weight 118.1 kg Intake: Oral 120 590 Output: Urine 2500 1000 350 Other: Voiding Method Indwelling Catheter Indwelling Catheter Indwelling Catheter - Exam GENERAL DESCRIPTION: An elderly male lying in bed in no distress RESPIRATORY SYSTEM: Unlabored breathing , decreased breath sounds at bases HEART: S1 S2 regular rate and rhythm , ABDOMEN: Soft , no tenderness EXTREMITIES: Lower extremity with extensive swelling redness some drainage of the dressing - Labs CBC & Chem 7: 01/04/25 06:23 01/05/25 06:22 Labs: Abnormal Lab Results - Last 24 Hours (Table) 01/04/25 01/04/25 01/05/25 Range/Units 17:17 20:39 06:22 BUN 44.1 H (9.0-27.0) mg/dL Est GFR (CKD-EPI) 58 L (>=60) BUN/Creatinine Ratio 33.92 H (12.00-20.00) Ratio Glucose 179 H (70-110) mg/dL POC Glucose (mg/dL) 200 H 214 H (70-110) mg/dL 01/05/25 01/05/25 Range/Units 07:35 12:24 BUN (9.0-27.0) mg/dL Est GFR (CKD-EPI) (>=60) BUN/Creatinine Ratio (12.00-20.00) Ratio Glucose (70-110) mg/dL POC Glucose (mg/dL) 171 H 198 H (70-110) mg/dL Microbiology - Last 24 Hours (Table) 01/02/25 02:25 Gram Stain - Final Toe - Right First Wound Culture - Final Proteus mirabilis Methicillin resist S. aureus 12/31/24 12:50 Anaerobic Culture - Final Leg - Left 01/02/25 02:25 Anaerobic Culture - Final Toe - Right First Assessment and Plan (1) Cellulitis of left leg Current Visit: Yes Status: Acute Code(s): L03.116 - CELLULITIS OF LEFT LOWER LIMB SNOMED Code(s): 36636824972798270 (2) Sepsis Current Visit: Yes Status: Acute Code(s): A41.9 - SEPSIS, UNSPECIFIED ORGANISM SNOMED Code(s): 60393168 (3) Chronic kidney disease Current Visit: Yes Status: Chronic Priority: Medium Code(s): N18.9 - CHRONIC KIDNEY DISEASE, UNSPECIFIED SNOMED Code(s): 347257030 Plan: 1patient presented hospital with sepsis in this patient who did have fever tachycardia elevated white count meeting criteria for SIRS source is left lower extremity cellulitis in this patient did have diffuse swelling and redness some ruptured blister and evidence of athlete's foot all pointing towards likely gram-positive skin darren such as strep 2-patient with a chronic kidney disease worsening creatinine high risk of nephrotoxicity from vancomycin which was discontinued 3-patient culture grew strep Proteus present MRSA and Enterococcus 4patient is afebrile white count is slightly up yesterday no CBC was done today we will repeat a CBC for the a.m. lab, for now continue with cefepime and daptomycin and monitor clinical course closely Dictation was produced using [employer] dictation software. please excuse any grammatical, word or spelling errors. Time with Patient: Less than 30
--- NOTE | 2025-01-05 14:18 | XR ---
EXAMINATION TYPE: XR chest 1V portable DATE OF EXAM: 01/05/2025 CLINICAL INDICATION: Male, 74 years old with history of hypoxia, progress study. TECHNIQUE: Single AP portable upright view of the chest is obtained. COMPARISON: Chest x-ray from 2 days earlier FINDINGS: No suspicious focal airspace opacity, pleural effusion, or pneumothorax seen bilaterally. There is mild cardiomegaly redemonstrated with atherosclerotic and ectatic aortic knob. Osseous struc tures are demineralized with degenerative change bilateral shoulders redemonstrated. IMPRESSION: Mild cardiomegaly without acute pulmonary process. [facility], , 01/05/2025 2:15 PM
[2025-01-05 15:03] LABS: HCT 30.5 % (39.6-50.0); HGB 9.9 g/dL (13.0-17.0); MCH 28.9 pg (27.0-32.0); MCHC 32.5 g/dL (32.0-37.0); MCV 88.9 fL (80.0-97.0); Mean Platelet Volume 10.7 fL (9.5-12.2); RBC 3.43 10*6/uL (4.40-5.60); RDW 16.9 % (11.5-14.5); WBC 23.84 10*3/uL (4.50-10.00)
[2025-01-05 15:09] LABS: Platelet Count 448 10*3/uL (140-440)
[2025-01-05 15:36] LABS: Band Neutrophils % 6 %; Eosinophils # (M) 0.72 k/uL (0-0.7); Lymphocytes # (M) 4.05 k/uL (1.0-4.8); Metamyelocytes # (M) 0.24 k/uL (0); Metamyelocytes % 1 %; Monocytes # (M) 1.67 k/uL (0-1.0); Neutrophils # (M) 17.64 k/uL (1.3-7.7); Neutrophils % (M) 68 %; Nucleated Red Blood Cells 0 /100 WBC (0-0); Total Cells Counted 200
[2025-01-05 15:37] LABS: Anisocytosis (M) Present
[2025-01-05 17:10] LABS: Glucose,Whole Blood 202 mg/dL (70-110)
--- NOTE | 2025-01-05 18:21 | CT ---
EXAMINATION TYPE: CT brain wo con DATE OF EXAM: 01/05/2025 5:40 PM COMPARISON: None available at this institution. CLINICAL INDICATION: Male, 74 years old with history of rule out PE, RULE OUT PE, MRSA TECHNIQUE: Brain: Axial CT images of the brain were obtained with coronal and sagittal reformats created and rev iewed. Contrast used: None. Oral contrast used: None. CT DLP: 1098.8 mGycm, Automated exposure control for dose reduction was used. FINDINGS: Brain: Ventricles and sulci are within normal limits for size. No acute intracranial hemorrhage or significa nt midline shift. Left frontotemporoparietal large craniotomy defect present. There is lenticular air fluid overlying the craniotomy defect and somewhat mild inward bulging, possibly related to surgical dressing material. Recommend correlation with prior outside imaging if available. Extensive encephal omalacia involving the right frontoparietal lobe and convexity. Patchy periventricular and subcortica l white matter hypoattenuation, likely affecting chronic microvascular ischemic disease. Vascular samira cifications noted. No sizable extra-axial fluid collection. Paranasal sinuses and mastoid air cells appear grossly patent. No depressed acute calvarial fracture identified. IMPRESSION: 1. No acute intracranial hemorrhage or significant acute midline shift. 2. Large left sided craniotomy defect and extensive encephalomalacia involving the right frontal and parietal lobes. If there is continued underlying conical concern for acute ischemia, recommend MRI f or better evaluation. 3. Patchy periventricular and subcortical white matter hypoattenuation likely reflect chronic microv ascular ischemic disease. [facility], , 01/05/2025 6:19 PM
[2025-01-05 20:17] LABS: Glucose,Whole Blood 198 mg/dL (70-110)
[2025-01-06 07:06] LABS: Glucose,Whole Blood 155 mg/dL (70-110)
[2025-01-06 12:01] LABS: Basophils # (A) 0.09 10*3/uL (0.00-0.10); Basophils % (A) 0.4 %; Eosinophils # (A) 0.31 10*3/uL (0.04-0.35); Eosinophils % (A) 1.5 %; HCT 30.5 % (39.6-50.0); HGB 9.5 g/dL (13.0-17.0); Lymphocytes # (A) 3.72 10*3/uL (0.90-5.00); Lymphocytes % (A) 17.4 %; MCH 28.1 pg (27.0-32.0); MCHC 31.1 g/dL (32.0-37.0); MCV 90.2 fL (80.0-97.0); Mean Platelet Volume 10.8 fL (9.5-12.2); Monocytes % (A) 5.1 %; Neutrophils % (A) 66.9 %; Platelet Count 475 10*3/uL (140-440); RBC 3.38 10*6/uL (4.40-5.60); RDW 17.2 % (11.5-14.5); WBC 21.37 10*3/uL (4.50-10.00)
[2025-01-06 12:34] LABS: Glucose,Whole Blood 232 mg/dL (70-110)
[2025-01-06 13:15] LABS: Anisocytosis (M) Present; Band Neutrophils % 9 %; Eosinophils # (M) 0.85 k/uL (0-0.7); Lymphocytes # (M) 5.98 k/uL (1.0-4.8); Monocytes # (M) 0.43 k/uL (0-1.0); Neutrophils % (M) 57 %; Nucleated Red Blood Cells 0 /100 WBC (0-0); Poikilocytosis (M) Present; Total Cells Counted 100
--- NOTE | 2025-01-06 13:24 | P.PN ---
Subjective Patient is seen for follow-up for acute kidney injury and chronic kidney disease. No significant complaints Renal function has improved with serum creatinine down to 1.3 yesterday. No labs from today. Objective - Vital Signs Vital signs: Vital Signs Temp 98.3 F 01/06/25 13:06 Pulse 78 01/06/25 13:06 Resp 16 01/06/25 13:06 BP 124/56 01/06/25 13:06 Pulse Ox 95 01/06/25 13:06 FiO2 Intake & Output 01/05/25 01/06/25 01/06/25 18:59 06:59 18:59 Intake Total 660 890 720 Output Total 1999 1000 Balance -1340 -110 720 Weight 118 kg Intake: Oral 660 890 720 Output: Urine 1999 1000 Other: Voiding Method Indwelling Catheter Indwelling Catheter Indwelling Catheter - Exam Patient is comfortable Examination of the heart S1 and S2 Examination of the lungs bilateral breath sounds are heard Abdomen is soft nontender Examination of lower extremity shows both legs to be wrapped, edema 2+ - Labs CBC & Chem 7: 01/06/25 06:31 01/05/25 06:22 Labs: Abnormal Lab Results - Last 24 Hours (Table) 01/05/25 01/05/25 01/05/25 Range/Units 14:24 14:24 14:24 WBC 23.84 H (4.50-10.00) 10*3/uL RBC 3.43 L (4.40-5.60) 10*6/uL Hgb 9.9 L (13.0-17.0) g/dL Hct 30.5 L (39.6-50.0) % MCHC (32.0-37.0) g/dL RDW 16.9 H (11.5-14.5) % Plt Count 448 H D (140-440) 10*3/uL Immature Gran # 2.08 H (0.00-0.04) 10*3/uL Neutrophils # (1.80-7.70) 10*3/uL Neutrophils # (Manual) 17.64 H (1.3-7.7) k/uL Lymphocytes # (Manual) (1.0-4.8) k/uL Monocytes # (0.20-1.00) 10*3/uL Monocytes # (Manual) 1.67 H (0-1.0) k/uL Eosinophils # (Manual) 0.72 H (0-0.7) k/uL Metamyelocytes # (Man) 0.24 H (0) k/uL D-Dimer 1.48 H (<0.60) mg/L FEU POC Glucose (mg/dL) (70-110) mg/dL Procalcitonin 2.46 H (0.02-0.50) ng/mL 01/05/25 01/05/25 01/06/25 Range/Units 17:06 20:16 06:31 WBC 21.37 H (4.50-10.00) 10*3/uL RBC 3.38 L (4.40-5.60) 10*6/uL Hgb 9.5 L (13.0-17.0) g/dL Hct 30.5 L (39.6-50.0) % MCHC 31.1 L (32.0-37.0) g/dL RDW 17.2 H (11.5-14.5) % Plt Count 475 H (140-440) 10*3/uL Immature Gran # 1.85 H (0.00-0.04) 10*3/uL Neutrophils # 14.30 H (1.80-7.70) 10*3/uL Neutrophils # (Manual) 14.10 H (1.3-7.7) k/uL Lymphocytes # (Manual) 5.98 H (1.0-4.8) k/uL Monocytes # 1.10 H (0.20-1.00) 10*3/uL Monocytes # (Manual) (0-1.0) k/uL Eosinophils # (Manual) 0.85 H (0-0.7) k/uL Metamyelocytes # (Man) (0) k/uL D-Dimer (<0.60) mg/L FEU POC Glucose (mg/dL) 202 H 198 H (70-110) mg/dL Procalcitonin (0.02-0.50) ng/mL 01/06/25 01/06/25 Range/Units 07:04 12:33 WBC (4.50-10.00) 10*3/uL RBC (4.40-5.60) 10*6/uL Hgb (13.0-17.0) g/dL Hct (39.6-50.0) % MCHC (32.0-37.0) g/dL RDW (11.5-14.5) % Plt Count (140-440) 10*3/uL Immature Gran # (0.00-0.04) 10*3/uL Neutrophils # (1.80-7.70) 10*3/uL Neutrophils # (Manual) (1.3-7.7) k/uL Lymphocytes # (Manual) (1.0-4.8) k/uL Monocytes # (0.20-1.00) 10*3/uL Monocytes # (Manual) (0-1.0) k/uL Eosinophils # (Manual) (0-0.7) k/uL Metamyelocytes # (Man) (0) k/uL D-Dimer (<0.60) mg/L FEU POC Glucose (mg/dL) 155 H 232 H (70-110) mg/dL Procalcitonin (0.02-0.50) ng/mL Microbiology - Last 24 Hours (Table) 01/02/25 02:25 Gram Stain - Final Toe - Right First Wound Culture - Final Proteus mirabilis Methicillin resist S. aureus Assessment and Plan Assessment: 1. Acute kidney injury secondary to ATN secondary to severe sepsis. Creatinine peaked at 3.22 this admission and improved to 1.3. No hydronephrosis noted on ultrasound. 2. Chronic kidney disease stage IIIa with baseline creatinine 1.1-1.3. 3. Hypernatremia from lack of oral water intake. Improved. 4. Severe sepsis secondary to lower extremity cellulitis and UTI. On antibiotics. ID following. 5. Diabetes mellitus. 6. Metabolic acidosis secondary to acute kidney injury and IV fluids. On oral bicarb. Better. 7. Volume overload. Better with diuresis. Plan: Continue with IV Lasix Repeat labs in a.m.
[2025-01-06 15:11] LABS: BUN/Creat Ratio 37.15 Ratio (12.00-20.00); Blood Urea Nitrogen 48.3 mg/dL (9.0-27.0); Calcium 9.1 mg/dL (8.7-10.3); Carbon Dioxide 22.6 mmol/L (21.6-31.8); Chloride 104 mmol/L (96-109); Glucose 147 mg/dL (70-110); Magnesium 2.2 mg/dL (1.5-2.4); Potassium 4.4 mmol/L (3.5-5.5); Sodium 140 mmol/L (135-145)
[2025-01-06 17:09] LABS: Glucose,Whole Blood 150 mg/dL (70-110)
[2025-01-06 20:31] LABS: Glucose,Whole Blood 161 mg/dL (70-110)
[2025-01-07 06:49] LABS: Glucose,Whole Blood 141 mg/dL (70-110)
[2025-01-07 10:00] LABS: BUN/Creat Ratio 33.08 Ratio (12.00-20.00); Blood Urea Nitrogen 39.7 mg/dL (9.0-27.0); Glucose 145 mg/dL (70-110); HCT 29.6 % (39.6-50.0); HGB 9.2 g/dL (13.0-17.0); MCHC 31.1 g/dL (32.0-37.0); Mean Platelet Volume 10.8 FL (9.5-12.2); NRBC Per 100 WBC 0 X 10*3/uL (0.00-0.01); Platelet Count 552 X 10*3/uL (140-440); RBC 3.29 X 10*6/uL (4.40-5.60); RDW 16.9 % (11.5-14.5); WBC 20.57 X 10*3/uL (4.50-10.00)
[2025-01-07 10:01] LABS: Calcium 8.8 mg/dL (8.7-10.3); Carbon Dioxide 24.4 mmol/L (21.6-31.8); Chloride 101 mmol/L (96-109); Potassium 3.9 mmol/L (3.5-5.5); Sodium 138 mmol/L (135-145)
--- NOTE | 2025-01-07 10:43 | P.PN ---
Subjective Patient is seen for follow-up for acute kidney injury and chronic kidney disease. No significant complaints Renal function has improved with serum creatinine down to 1.2 today Objective - Vital Signs Vital signs: Vital Signs Temp 98.1 F 01/07/25 06:49 Pulse 75 01/07/25 08:12 Resp 18 01/07/25 06:49 BP 124/63 01/07/25 06:49 Pulse Ox 96 01/07/25 06:49 FiO2 Intake & Output 01/06/25 01/07/25 01/07/25 18:59 06:59 18:59 Intake Total 2280 1190 480 Output Total 1999 Balance 280 1190 480 Weight 109 kg Intake: Oral 2280 1190 480 Output: Urine 1999 Other: Voiding Method Indwelling Catheter Indwelling Catheter - Exam Patient is comfortable Examination of the heart S1 and S2 Examination of the lungs bilateral breath sounds are heard Abdomen is soft nontender Examination of lower extremity shows both legs to be wrapped, edema 2+ - Labs CBC & Chem 7: 01/07/25 05:26 01/07/25 05:26 Labs: Abnormal Lab Results - Last 24 Hours (Table) 01/06/25 01/06/25 01/06/25 Range/Units 06:31 06:31 12:33 WBC 21.37 H (4.50-10.00) 10*3/uL RBC 3.38 L (4.40-5.60) 10*6/uL Hgb 9.5 L (13.0-17.0) g/dL Hct 30.5 L (39.6-50.0) % MCHC 31.1 L (32.0-37.0) g/dL RDW 17.2 H (11.5-14.5) % Plt Count 475 H (140-440) 10*3/uL Immature Gran # 1.85 H (0.00-0.04) 10*3/uL Neutrophils # 14.30 H (1.80-7.70) 10*3/uL Neutrophils # (Manual) 14.10 H (1.3-7.7) k/uL Lymphocytes # (Manual) 5.98 H (1.0-4.8) k/uL Monocytes # 1.10 H (0.20-1.00) 10*3/uL Eosinophils # (Manual) 0.85 H (0-0.7) k/uL Anion Gap 13.40 H (4.00-12.00) mmol/L BUN 48.3 H (9.0-27.0) mg/dL Est GFR (CKD-EPI) 58 L (>=60) BUN/Creatinine Ratio 37.15 H (12.00-20.00) Ratio Glucose 147 H (70-110) mg/dL POC Glucose (mg/dL) 232 H (70-110) mg/dL 01/06/25 01/06/25 01/07/25 Range/Units 17:08 20:29 05:26 WBC 20.57 H (4.50-10.00) 10*3/uL RBC 3.29 L (4.40-5.60) 10*6/uL Hgb 9.2 L (13.0-17.0) g/dL Hct 29.6 L (39.6-50.0) % MCHC 31.1 L (32.0-37.0) g/dL RDW 16.9 H (11.5-14.5) % Plt Count 552 H (140-440) 10*3/uL Immature Gran # (0.00-0.04) 10*3/uL Neutrophils # (1.80-7.70) 10*3/uL Neutrophils # (Manual) (1.3-7.7) k/uL Lymphocytes # (Manual) (1.0-4.8) k/uL Monocytes # (0.20-1.00) 10*3/uL Eosinophils # (Manual) (0-0.7) k/uL Anion Gap (4.00-12.00) mmol/L BUN (9.0-27.0) mg/dL Est GFR (CKD-EPI) (>=60) BUN/Creatinine Ratio (12.00-20.00) Ratio Glucose (70-110) mg/dL POC Glucose (mg/dL) 150 H 161 H (70-110) mg/dL 01/07/25 01/07/25 Range/Units 05:26 06:48 WBC (4.50-10.00) 10*3/uL RBC (4.40-5.60) 10*6/uL Hgb (13.0-17.0) g/dL Hct (39.6-50.0) % MCHC (32.0-37.0) g/dL RDW (11.5-14.5) % Plt Count (140-440) 10*3/uL Immature Gran # (0.00-0.04) 10*3/uL Neutrophils # (1.80-7.70) 10*3/uL Neutrophils # (Manual) (1.3-7.7) k/uL Lymphocytes # (Manual) (1.0-4.8) k/uL Monocytes # (0.20-1.00) 10*3/uL Eosinophils # (Manual) (0-0.7) k/uL Anion Gap 12.60 H (4.00-12.00) mmol/L BUN 39.7 H (9.0-27.0) mg/dL Est GFR (CKD-EPI) (>=60) BUN/Creatinine Ratio 33.08 H (12.00-20.00) Ratio Glucose 145 H (70-110) mg/dL POC Glucose (mg/dL) 141 H (70-110) mg/dL Assessment and Plan Assessment: 1. Acute kidney injury secondary to ATN secondary to severe sepsis. Creatinine peaked at 3.22 this admission and improved to 1.2. No hydronephrosis noted on ultrasound. 2. Chronic kidney disease stage IIIa with baseline creatinine 1.1-1.3. 3. Hypernatremia from lack of oral water intake. Improved. 4. Severe sepsis secondary to lower extremity cellulitis and UTI. On antibiotics. ID following. 5. Diabetes mellitus. 6. Metabolic acidosis secondary to acute kidney injury and IV fluids. On oral bicarb. Better. 7. Volume overload. Better with diuresis. Plan: Continue with IV Lasix Repeat labs in a.m.
[2025-01-07 11:10] LABS: Basophils # (M) 0 X 10*3/uL (0.00-0.10); Eosinophils # (M) 0 X 10*3/uL (0.04-0.35); Lymphocytes # (M) 2.88 X 10*3/uL (0.90-5.00); Monocytes # (M) 1.85 X 10*3/uL (0.20-1.00); Myelocytes % 1 % (0-0); Neutrophils # (M) 15.63 X 10*3/uL (1.80-7.70); Neutrophils % (M) 76 %; RBC Morphology Normal (Normal)
[2025-01-07 12:24] LABS: Glucose,Whole Blood 180 mg/dL (70-110)
--- NOTE | 2025-01-07 12:49 | P.PN ---
Subjective Progress Note Date: 01/06/25 Principal diagnosis: Reason for follow-up is left lower extremity cellulitis Patient is a 74-year-old male with a past medical history significant for hypertension hyperlipidemia heart failure atrial fibrillation renal disorder, patient has been brought into the [facility] a local [facility] concerning for fever shortness of breath and the patient was noticed to have increasing swelling and redness to the left lower extremity has been diagnosed with cellulitis prompted this consultation. On today's evaluation that is 01/06/2025, Patient is afebrile this morning patient is currently breathing comfortable increased nasal cannula oxygen slightly sleepy today did not answer any question no vomiting diarrhea or any other changes reported by the nursing staff. Patient white count is down to 21.37 creatinine is 1.3 Objective - Vital Signs Vital signs: Vital Signs Temp 98.2 F 01/06/25 20:00 Pulse 76 01/06/25 20:00 Resp 16 01/06/25 20:00 BP 135/68 01/06/25 20:00 Pulse Ox 94 L 01/06/25 20:00 FiO2 Intake & Output 01/06/25 01/06/25 01/07/25 06:59 18:59 06:59 Intake Total 890 2280 Output Total 1000 1999 Balance -110 280 Weight 118 kg Intake: Oral 890 2280 Output: Urine 1000 1999 Other: Voiding Method Indwelling Catheter Indwelling Catheter - Exam GENERAL DESCRIPTION: An elderly male lying in bed in no distress RESPIRATORY SYSTEM: Unlabored breathing , decreased breath sounds at bases HEART: S1 S2 regular rate and rhythm , ABDOMEN: Soft , no tenderness EXTREMITIES: Lower extremity with extensive swelling redness some drainage of the dressing - Labs CBC & Chem 7: 01/07/25 05:26 01/07/25 05:26 Labs: Abnormal Lab Results - Last 24 Hours (Table) 01/06/25 01/06/25 01/06/25 Range/Units 06:31 06:31 07:04 WBC 21.37 H (4.50-10.00) 10*3/uL RBC 3.38 L (4.40-5.60) 10*6/uL Hgb 9.5 L (13.0-17.0) g/dL Hct 30.5 L (39.6-50.0) % MCHC 31.1 L (32.0-37.0) g/dL RDW 17.2 H (11.5-14.5) % Plt Count 475 H (140-440) 10*3/uL Immature Gran # 1.85 H (0.00-0.04) 10*3/uL Neutrophils # 14.30 H (1.80-7.70) 10*3/uL Neutrophils # (Manual) 14.10 H (1.3-7.7) k/uL Lymphocytes # (Manual) 5.98 H (1.0-4.8) k/uL Monocytes # 1.10 H (0.20-1.00) 10*3/uL Eosinophils # (Manual) 0.85 H (0-0.7) k/uL Anion Gap 13.40 H (4.00-12.00) mmol/L BUN 48.3 H (9.0-27.0) mg/dL Est GFR (CKD-EPI) 58 L (>=60) BUN/Creatinine Ratio 37.15 H (12.00-20.00) Ratio Glucose 147 H (70-110) mg/dL POC Glucose (mg/dL) 155 H (70-110) mg/dL 01/06/25 01/06/25 01/06/25 Range/Units 12:33 17:08 20:29 WBC (4.50-10.00) 10*3/uL RBC (4.40-5.60) 10*6/uL Hgb (13.0-17.0) g/dL Hct (39.6-50.0) % MCHC (32.0-37.0) g/dL RDW (11.5-14.5) % Plt Count (140-440) 10*3/uL Immature Gran # (0.00-0.04) 10*3/uL Neutrophils # (1.80-7.70) 10*3/uL Neutrophils # (Manual) (1.3-7.7) k/uL Lymphocytes # (Manual) (1.0-4.8) k/uL Monocytes # (0.20-1.00) 10*3/uL Eosinophils # (Manual) (0-0.7) k/uL Anion Gap (4.00-12.00) mmol/L BUN (9.0-27.0) mg/dL Est GFR (CKD-EPI) (>=60) BUN/Creatinine Ratio (12.00-20.00) Ratio Glucose (70-110) mg/dL POC Glucose (mg/dL) 232 H 150 H 161 H (70-110) mg/dL Assessment and Plan (1) Cellulitis of left leg Current Visit: Yes Status: Acute Code(s): L03.116 - CELLULITIS OF LEFT LOWER LIMB SNOMED Code(s): 96150696531997901 (2) Sepsis Current Visit: Yes Status: Acute Code(s): A41.9 - SEPSIS, UNSPECIFIED ORGANISM SNOMED Code(s): 56687160 (3) Chronic kidney disease Current Visit: Yes Status: Chronic Priority: Medium Code(s): N18.9 - CHRONIC KIDNEY DISEASE, UNSPECIFIED SNOMED Code(s): 969249936 Plan: 1patient presented hospital with sepsis in this patient who did have fever tachycardia elevated white count meeting criteria for SIRS source is left lower extremity cellulitis in this patient did have diffuse swelling and redness some ruptured blister and evidence of athlete's foot all pointing towards likely gram-positive skin darren such as strep 2-patient with a chronic kidney disease worsening creatinine high risk of nephrotoxicity from vancomycin which was discontinued 3-patient culture grew strep Proteus present MRSA and Enterococcus 4patient is afebrile white count is trending down 5patient will be treated with cefepime and daptomycin and monitor clinical course closely Dictation was produced using [employer] dictation software. please excuse any grammatical, word or spelling errors. Time with Patient: Less than 30
--- NOTE | 2025-01-07 14:30 | P.PN ---
Subjective Progress Note Date: 01/05/25 74-year-old gentleman with past medical history significant for COPD, atrial fibrillation hyperlipidemia, history of cellulitis of lower extremities who is currently resident of [facility] presents the ER for shortness of breath and fever. According to EMR, patient has been having increasing shortness of breath for the last day, patient also having fevers with Tmax 102.6. There is no complaint of chills. There is no complaint of chest pain. There was no complaint of orthopnea or PND. Patient has chronic erythema a of lower extremities.Initial lab work done in the ER showed WBC 27.73, hemoglobin 13.2, platelet count 451, D-dimer 1.59, sodium 148, potassium 4.8, BUN 58, creatinine 2.08, lactate 3.3, t roponin 0.052 Influenza A not detected Influenza B not detected RSV not detected COVID-19 not detected EKG done in the ER showed heart rate of 12, ST depression in lead I and aVL, no T-wave inversions seen. Chest x-ray done in the ER showed no acute cardiopulmonary process Patient admitted to internal medicine service, patient was initially admitted to general medical floor but later transferred to ICU Objective - Vital Signs Vital signs: Vital Signs Temp 98.3 F 01/05/25 08:00 Pulse 92 01/05/25 11:47 Resp 23 01/05/25 08:00 BP 145/71 01/05/25 08:00 Pulse Ox 93 L 01/05/25 08:00 FiO2 Intake & Output 01/04/25 01/05/25 01/05/25 18:59 06:59 18:59 Intake Total 120 590 Output Total 2500 1000 350 Balance -2380 -410 -350 Weight 118.1 kg Intake: Oral 120 590 Output: Urine 2500 1000 350 Other: Voiding Method Indwelling Catheter Indwelling Catheter Indwelling Catheter - Exam GENERAL: The patient is alert, no acute distress HEENT: Pupils are round and equally reacting to light. EOMI. No scleral icterus. No conjunctival pallor. Normocephalic, atraumatic. No pharyngeal erythema. No thyromegaly. CARDIOVASCULAR: S1 and S2 present. No murmurs, rubs, or gallops. PULMONARY: diminished breath in the bases bilaterally,, no wheezing or crackles. ABDOMEN: Soft, nontender, nondistended, normoactive bowel sounds. No palpable organomegaly. MUSCULOSKELETAL: Left lower extremity extensive cellulitis and redness and swelling. EXTREMITIES: No cyanosis, clubbing, or pedal edema. NEUROLOGICAL: Gross neurological examination did not reveal any focal deficits. SKIN: No rashes. - Labs CBC & Chem 7: 01/07/25 05:26 01/07/25 05:26 Labs: Abnormal Lab Results - Last 24 Hours (Table) 01/04/25 01/04/25 01/05/25 Range/Units 17:17 20:39 06:22 BUN 44.1 H (9.0-27.0) mg/dL Est GFR (CKD-EPI) 58 L (>=60) BUN/Creatinine Ratio 33.92 H (12.00-20.00) Ratio Glucose 179 H (70-110) mg/dL POC Glucose (mg/dL) 200 H 214 H (70-110) mg/dL 01/05/25 01/05/25 Range/Units 07:35 12:24 BUN (9.0-27.0) mg/dL Est GFR (CKD-EPI) (>=60) BUN/Creatinine Ratio (12.00-20.00) Ratio Glucose (70-110) mg/dL POC Glucose (mg/dL) 171 H 198 H (70-110) mg/dL Microbiology - Last 24 Hours (Table) 01/02/25 02:25 Gram Stain - Final Toe - Right First Wound Culture - Final Proteus mirabilis Methicillin resist S. aureus 12/31/24 12:50 Anaerobic Culture - Final Leg - Left 01/02/25 02:25 Anaerobic Culture - Final Toe - Right First Assessment and Plan Assessment: Sepsis UTI Cellulitis of left lower extremity. Wound continues going Enterococcus faecalis and Proteus and staph SIMRAN on CKD due to ATN with severe sepsis Elevated troponin, likely secondary to sepsis and SIMRAN Elevated D-Dimer, likely due to sepsis History of HFpEF, last known EF 55-60% in 2019 Hypertension Hyperlipidemia Hypothyroidism Hypernatremia Monitor vital signs Monitor CBC Monitor CMP Continue telemetry monitoring Follow-up on blood cultures Follow urine cultures Continue wound care Continue aspirin, Lipitor Continue breathing treatment Continue cefepime and daptomycin as per ID recommendations. strict I's and O's, daily weights 2D echo done showed preserved LV function, moderate aortic stenosis noted ID, critical care team and nephrology is following. Patient is being transferred to medical floor today. Labs and medication were reviewed. Monitor labs and vitals. DVT and GI prophylaxis.
--- NOTE | 2025-01-07 14:33 | P.PN ---
Subjective Progress Note Date: 01/06/25 74-year-old gentleman with past medical history significant for COPD, atrial fibrillation hyperlipidemia, history of cellulitis of lower extremities who is currently resident of [facility] presents the ER for shortness of breath and fever. According to EMR, patient has been having increasing shortness of breath for the last day, patient also having fevers with Tmax 102.6. There is no complaint of chills. There is no complaint of chest pain. There was no complaint of orthopnea or PND. Patient has chronic erythema a of lower extremities.Initial lab work done in the ER showed WBC 27.73, hemoglobin 13.2, platelet count 451, D-dimer 1.59, sodium 148, potassium 4.8, BUN 58, creatinine 2.08, lactate 3.3, t roponin 0.052 Influenza A not detected Influenza B not detected RSV not detected COVID-19 not detected EKG done in the ER showed heart rate of 12, ST depression in lead I and aVL, no T-wave inversions seen. Chest x-ray done in the ER showed no acute cardiopulmonary process Patient admitted to internal medicine service, patient was initially admitted to general medical floor but later transferred to ICU 01/06/2025 - Patient is afebrile this morning patient is currently breathing comfortable increased nasal cannula oxygen slightly sleepy today did not answer any question no vomiting diarrhea or any other changes reported by the nursing staff. Patient white count is down to 21.37 creatinine is 1.3 -patient with a chronic kidney disease worsening creatinine high risk of nephrotoxicity from vancomycin which was discontinued -patient culture grew strep Proteus present MRSA and Enterococcus patient is afebrile white count is trending down patient will be treated with cefepime and daptomycin and monitor clinical course closely Objective - Vital Signs Vital signs: Vital Signs Temp 97.5 F L 01/06/25 07:06 Pulse 74 01/06/25 07:55 Resp 16 01/06/25 07:06 BP 130/73 01/06/25 07:06 Pulse Ox 95 01/06/25 07:06 FiO2 Intake & Output 01/05/25 01/06/25 01/06/25 18:59 06:59 18:59 Intake Total 660 890 720 Output Total 1999 1000 Balance -1340 -110 720 Weight 118 kg Intake: Oral 660 890 720 Output: Urine 1999 999 Other: Voiding Method Indwelling Catheter Indwelling Catheter Indwelling Catheter - Exam GENERAL: The patient is alert, no acute distress HEENT: Pupils are round and equally reacting to light. EOMI. No scleral icterus. No conjunctival pallor. Normocephalic, atraumatic. No pharyngeal erythema. No thyromegaly. CARDIOVASCULAR: S1 and S2 present. No murmurs, rubs, or gallops. PULMONARY: diminished breath in the bases bilaterally,, no wheezing or crackles. ABDOMEN: Soft, nontender, nondistended, normoactive bowel sounds. No palpable organomegaly. MUSCULOSKELETAL: Left lower extremity extensive cellulitis and redness and swelling. EXTREMITIES: No cyanosis, clubbing, or pedal edema. NEUROLOGICAL: Gross neurological examination did not reveal any focal deficits. SKIN: No rashes. - Labs CBC & Chem 7: 01/07/25 05:01/07/25 05: Labs: Abnormal Lab Results - Last 24 Hours (Table) 01/05/25 01/05/25 01/05/25 Range/Units 12:24 14:24 14:24 WBC 23.84 H (4.50-10.00) 10*3/uL RBC 3.43 L (4.40-5.60) 10*6/uL Hgb 9.9 L (13.0-17.0) g/dL Hct 30.5 L (39.6-50.0) % RDW 16.9 H (11.5-14.5) % Plt Count 448 H D (140-440) 10*3/uL Immature Gran # 2.08 H (0.00-0.04) 10*3/uL Neutrophils # (Manual) 17.64 H (1.3-7.7) k/uL Monocytes # (Manual) 1.67 H (0-1.0) k/uL Eosinophils # (Manual) 0.72 H (0-0.7) k/uL Metamyelocytes # (Man) 0.24 H (0) k/uL D-Dimer 1.48 H (<0.60) mg/L FEU POC Glucose (mg/dL) 198 H (70-110) mg/dL Procalcitonin (0.02-0.50) ng/mL 01/05/25 01/05/25 01/05/25 Range/Units 14:24 17:06 20:16 WBC (4.50-10.00) 10*3/uL RBC (4.40-5.60) 10*6/uL Hgb (13.0-17.0) g/dL Hct (39.6-50.0) % RDW (11.5-14.5) % Plt Count (140-440) 10*3/uL Immature Gran # (0.00-0.04) 10*3/uL Neutrophils # (Manual) (1.3-7.7) k/uL Monocytes # (Manual) (0-1.0) k/uL Eosinophils # (Manual) (0-0.7) k/uL Metamyelocytes # (Man) (0) k/uL D-Dimer (<0.60) mg/L FEU POC Glucose (mg/dL) 202 H 198 H (70-110) mg/dL Procalcitonin 2.46 H (0.02-0.50) ng/mL 01/06/25 Range/Units 07:04 WBC (4.50-10.00) 10*3/uL RBC (4.40-5.60) 10*6/uL Hgb (13.0-17.0) g/dL Hct (39.6-50.0) % RDW (11.5-14.5) % Plt Count (140-440) 10*3/uL Immature Gran # (0.00-0.04) 10*3/uL Neutrophils # (Manual) (1.3-7.7) k/uL Monocytes # (Manual) (0-1.0) k/uL Eosinophils # (Manual) (0-0.7) k/uL Metamyelocytes # (Man) (0) k/uL D-Dimer (<0.60) mg/L FEU POC Glucose (mg/dL) 155 H (70-110) mg/dL Procalcitonin (0.02-0.50) ng/mL Microbiology - Last 24 Hours (Table) 01/02/25 02:25 Gram Stain - Final Toe - Right First Wound Culture - Final Proteus mirabilis Methicillin resist S. aureus Assessment and Plan Assessment: Sepsis UTI Cellulitis of left lower extremity. Wound continues going Enterococcus faecalis and Proteus and staph SIMRAN on CKD due to ATN with severe sepsis Elevated troponin, likely secondary to sepsis and SIMRAN Elevated D-Dimer, likely due to sepsis History of HFpEF, last known EF 55-60% in 2019 Hypertension Hyperlipidemia Hypothyroidism Hypernatremia Monitor vital signs Monitor CBC Monitor CMP Continue telemetry monitoring Follow-up on blood cultures Follow urine cultures Continue wound care Continue aspirin, Lipitor Continue breathing treatment Continue cefepime and daptomycin as per ID recommendations. strict I's and O's, daily weights 2D echo done showed preserved LV function, moderate aortic stenosis noted ID, critical care team and nephrology is following. Patient is being transferred to medical floor today. Labs and medication were reviewed. Monitor labs and vitals. DVT and GI prophylaxis.
--- NOTE | 2025-01-07 14:35 | P.PN ---
Subjective Progress Note Date: 01/07/25 74-year-old gentleman with past medical history significant for COPD, atrial fibrillation hyperlipidemia, history of cellulitis of lower extremities who is currently resident of [facility] presents the ER for shortness of breath and fever. According to EMR, patient has been having increasing shortness of breath for the last day, patient also having fevers with Tmax 102.6. There is no complaint of chills. There is no complaint of chest pain. There was no complaint of orthopnea or PND. Patient has chronic erythema a of lower extremities.Initial lab work done in the ER showed WBC 27.73, hemoglobin 13.2, platelet count 451, D-dimer 1.59, sodium 148, potassium 4.8, BUN 58, creatinine 2.08, lactate 3.3, t roponin 0.052 Influenza A not detected Influenza B not detected RSV not detected COVID-19 not detected EKG done in the ER showed heart rate of 12, ST depression in lead I and aVL, no T-wave inversions seen. Chest x-ray done in the ER showed no acute cardiopulmonary process Patient admitted to internal medicine service, patient was initially admitted to general medical floor but later transferred to ICU 01/06/2025 - Patient is afebrile this morning patient is currently breathing comfortable increased nasal cannula oxygen slightly sleepy today did not answer any question no vomiting diarrhea or any other changes reported by the nursing staff. Patient white count is down to 21.37 creatinine is 1.3 -patient with a chronic kidney disease worsening creatinine high risk of nephrotoxicity from vancomycin which was discontinued -patient culture grew strep Proteus present MRSA and Enterococcus patient is afebrile white count is trending down patient will be treated with cefepime and daptomycin and monitor clinical course closely 01/07/2025 Patient is seen and evaluated and discussed with nursing staff Vital signs are reviewed reveal temperature of 98.1, pulse 75, respiration 18 and blood pressure 09/18/2003 over 63 Blood work reveals WBC slightly improved at 20.57, hemoglobin of 9.2 and platelet count of 552, sodium 138, potassium 3.9, BUN/creatinine of 39.7 and creatinine of 1.2 and blood glucose of 145 -patient presented hospital with sepsis in this patient who did have fever tachycardia elevated white count meeting criteria for SIRS source is left lower extremity cellulitis in this patient did have diffuse swelling and redness some ruptured blister and evidence of athlete's foot all pointing towards likely gram-positive skin darren such as strep -patient with a chronic kidney disease worsening creatinine high risk of neph rotoxicity from vancomycin which was discontinued -patient culture grew strep Proteus present MRSA and Enterococcus -patient is afebrile white count is trending down -patient will be treated with cefepime and daptomycin and monitor clinical course closely Objective - Vital Signs Vital signs: Vital Signs Temp 98.1 F 01/07/25 06:49 Pulse 75 01/07/25 08:12 Resp 18 01/07/25 06:49 BP 124/63 01/07/25 06:49 Pulse Ox 96 01/07/25 06:49 FiO2 Intake & Output 01/06/25 01/07/25 01/07/25 18:59 06:59 18:59 Intake Total 2280 1190 240 Output Total 1999 Balance 280 1190 240 Weight 109 kg Intake: Oral 2280 1190 240 Output: Urine 2000 Other: Voiding Method Indwelling Catheter Indwelling Catheter - Exam GENERAL: The patient is alert, no acute distress HEENT: Pupils are round and equally reacting to light. EOMI. No scleral icterus. No conjunctival pallor. Normocephalic, atraumatic. No pharyngeal erythema. No thyromegaly. CARDIOVASCULAR: S1 and S2 present. No murmurs, rubs, or gallops. PULMONARY: diminished breath in the bases bilaterally,, no wheezing or crackles. ABDOMEN: Soft, nontender, nondistended, normoactive bowel sounds. No palpable organomegaly. MUSCULOSKELETAL: Left lower extremity extensive cellulitis and redness and swelling. EXTREMITIES: No cyanosis, clubbing, or pedal edema. NEUROLOGICAL: Gross neurological examination did not reveal any focal deficits. SKIN: No rashes. - Labs CBC & Chem 7: 01/07/25 05:26 01/07/25 05:26 Labs: Abnormal Lab Results - Last 24 Hours (Table) 01/06/25 01/06/25 01/06/25 Range/Units 06:31 06:31 12:33 WBC 21.37 H (4.50-10.00) 10*3/uL RBC 3.38 L (4.40-5.60) 10*6/uL Hgb 9.5 L (13.0-17.0) g/dL Hct 30.5 L (39.6-50.0) % MCHC 31.1 L (32.0-37.0) g/dL RDW 17.2 H (11.5-14.5) % Plt Count 475 H (140-440) 10*3/uL Immature Gran # 1.85 H (0.00-0.04) 10*3/uL Neutrophils # 14.30 H (1.80-7.70) 10*3/uL Neutrophils # (Manual) 14.10 H (1.3-7.7) k/uL Lymphocytes # (Manual) 5.98 H (1.0-4.8) k/uL Monocytes # 1.10 H (0.20-1.00) 10*3/uL Eosinophils # (Manual) 0.85 H (0-0.7) k/uL Anion Gap 13.40 H (4.00-12.00) mmol/L BUN 48.3 H (9.0-27.0) mg/dL Est GFR (CKD-EPI) 58 L (>=60) BUN/Creatinine Ratio 37.15 H (12.00-20.00) Ratio Glucose 147 H (70-110) mg/dL POC Glucose (mg/dL) 232 H (70-110) mg/dL 01/06/25 01/06/25 01/07/25 Range/Units 17:08 20:29 06:48 WBC (4.50-10.00) 10*3/uL RBC (4.40-5.60) 10*6/uL Hgb (13.0-17.0) g/dL Hct (39.6-50.0) % MCHC (32.0-37.0) g/dL RDW (11.5-14.5) % Plt Count (140-440) 10*3/uL Immature Gran # (0.00-0.04) 10*3/uL Neutrophils # (1.80-7.70) 10*3/uL Neutrophils # (Manual) (1.3-7.7) k/uL Lymphocytes # (Manual) (1.0-4.8) k/uL Monocytes # (0.20-1.00) 10*3/uL Eosinophils # (Manual) (0-0.7) k/uL Anion Gap (4.00-12.00) mmol/L BUN (9.0-27.0) mg/dL Est GFR (CKD-EPI) (>=60) BUN/Creatinine Ratio (12.00-20.00) Ratio Glucose (70-110) mg/dL POC Glucose (mg/dL) 150 H 161 H 141 H (70-110) mg/dL Assessment and Plan Assessment: Sepsis UTI Cellulitis of left lower extremity. Wound continues going Enterococcus faecalis and Proteus and staph SIMRAN on CKD due to ATN with severe sepsis Elevated troponin, likely secondary to sepsis and SIMRAN Elevated D-Dimer, likely due to sepsis History of HFpEF, last known EF 55-60% in 2019 Hypertension Hyperlipidemia Hypothyroidism Hypernatremia Monitor vital signs Monitor CBC Monitor CMP Continue telemetry monitoring Follow-up on blood cultures Follow urine cultures Continue wound care Continue aspirin, Lipitor Continue breathing treatment Continue cefepime and daptomycin as per ID recommendations. strict I's and O's, daily weights 2D echo done showed preserved LV function, moderate aortic stenosis noted ID, critical care team and nephrology is following. Patient is being transferred to medical floor today. Labs and medication were reviewed. Monitor labs and vitals. DVT and GI prophylaxis.
[2025-01-07 17:13] LABS: Glucose,Whole Blood 182 mg/dL (70-110)
[2025-01-07 20:23] LABS: Glucose,Whole Blood 227 mg/dL (70-110)
[2025-01-08 07:23] LABS: Glucose,Whole Blood 153 mg/dL (70-110)
--- NOTE | 2025-01-08 08:00 | P.PN ---
Subjective Progress Note Date: 01/07/25 Principal diagnosis: Reason for follow-up is left lower extremity cellulitis Patient is a 74-year-old male with a past medical history significant for hypertension hyperlipidemia heart failure atrial fibrillation renal disorder, patient has been brought into the hospital from a local detention concerning for fever shortness of breath and the patient was noticed to have increasing swelling and redness to the left lower extremity has been diagnosed with cellulitis prompted this consultation. On today's evaluation that is 01/07/2025,the patient denies any fever or any chills, patient is breathing comfortably on room air, the patient denies chest pain shortness of breath and no significant cough, patient denies abdominal pain, no nausea vomiting or diarrhea. However has been complaining of feeling weak no energy. Patient white count is slightly down to 20.57 Objective - Vital Signs Vital signs: Vital Signs Temp 98.3 F 01/07/25 12:07 Pulse 73 01/07/25 12:07 Resp 17 01/07/25 12:07 BP 120/72 01/07/25 12:07 Pulse Ox 96 01/07/25 12:07 FiO2 Intake & Output 01/06/25 01/07/25 01/07/25 18:59 06:59 18:59 Intake Total 2280 1190 3720 Output Total 1999 2501 Balance 280 1190 1219 Weight 109 kg Intake: Oral 2280 1190 3720 Output: Urine 2000 2500 Stool 1 Other: Voiding Method Indwelling Catheter Indwelling Catheter Indwelling Catheter - Exam GENERAL DESCRIPTION: An elderly male lying in bed in no distress RESPIRATORY SYSTEM: Unlabored breathing , decreased breath sounds at bases HEART: S1 S2 regular rate and rhythm , ABDOMEN: Soft , no tenderness EXTREMITIES: Lower extremity with extensive swelling redness some drainage of the dressing - Labs CBC & Chem 7: 01/07/25 05:26 01/07/25 05:26 Labs: Abnormal Lab Results - Last 24 Hours (Table) 01/06/25 01/06/25 01/06/25 Range/Units 06:31 06:31 17:08 WBC (4.50-10.00) X 10*3/uL RBC (4.40-5.60) X 10*6/uL Hgb (13.0-17.0) g/dL Hct (39.6-50.0) % MCHC (32.0-37.0) g/dL RDW (11.5-14.5) % Plt Count (140-440) X 10*3/uL Neutrophils # 14.30 H (1.80-7.70) 10*3/uL Neutrophils # (Manual) 14.10 H (1.3-7.7) k/uL Lymphocytes # (Manual) 5.98 H (1.0-4.8) k/uL Monocytes # 1.10 H (0.20-1.00) 10*3/uL Monocytes # (Manual) (0.20-1.00) X 10*3/uL Eosinophils # (Manual) 0.85 H (0-0.7) k/uL Anion Gap 13.40 H (4.00-12.00) mmol/L BUN 48.3 H (9.0-27.0) mg/dL Est GFR (CKD-EPI) 58 L (>=60) BUN/Creatinine Ratio 37.15 H (12.00-20.00) Ratio Glucose 147 H (70-110) mg/dL POC Glucose (mg/dL) 150 H (70-110) mg/dL 01/06/25 01/07/25 01/07/25 Range/Units 20:29 05:26 05:26 WBC 20.57 H (4.50-10.00) X 10*3/uL RBC 3.29 L (4.40-5.60) X 10*6/uL Hgb 9.2 L (13.0-17.0) g/dL Hct 29.6 L (39.6-50.0) % MCHC 31.1 L (32.0-37.0) g/dL RDW 16.9 H (11.5-14.5) % Plt Count 552 H (140-440) X 10*3/uL Neutrophils # (1.80-7.70) 10*3/uL Neutrophils # (Manual) 15.63 H (1.3-7.7) k/uL Lymphocytes # (Manual) (1.0-4.8) k/uL Monocytes # (0.20-1.00) 10*3/uL Monocytes # (Manual) 1.85 H (0.20-1.00) X 10*3/uL Eosinophils # (Manual) 0 L (0-0.7) k/uL Anion Gap 12.60 H (4.00-12.00) mmol/L BUN 39.7 H (9.0-27.0) mg/dL Est GFR (CKD-EPI) (>=60) BUN/Creatinine Ratio 33.08 H (12.00-20.00) Ratio Glucose 145 H (70-110) mg/dL POC Glucose (mg/dL) 161 H (70-110) mg/dL 01/07/25 01/07/25 Range/Units 06:48 12:22 WBC (4.50-10.00) X 10*3/uL RBC (4.40-5.60) X 10*6/uL Hgb (13.0-17.0) g/dL Hct (39.6-50.0) % MCHC (32.0-37.0) g/dL RDW (11.5-14.5) % Plt Count (140-440) X 10*3/uL Neutrophils # (1.80-7.70) 10*3/uL Neutrophils # (Manual) (1.3-7.7) k/uL Lymphocytes # (Manual) (1.0-4.8) k/uL Monocytes # (0.20-1.00) 10*3/uL Monocytes # (Manual) (0.20-1.00) X 10*3/uL Eosinophils # (Manual) (0-0.7) k/uL Anion Gap (4.00-12.00) mmol/L BUN (9.0-27.0) mg/dL Est GFR (CKD-EPI) (>=60) BUN/Creatinine Ratio (12.00-20.00) Ratio Glucose (70-110) mg/dL POC Glucose (mg/dL) 141 H 180 H (70-110) mg/dL Assessment and Plan (1) Cellulitis of left leg Current Visit: Yes Status: Acute Code(s): L03.116 - CELLULITIS OF LEFT LOWER LIMB SNOMED Code(s): 65108004210198622 (2) Sepsis Current Visit: Yes Status: Acute Code(s): A41.9 - SEPSIS, UNSPECIFIED ORGANISM SNOMED Code(s): 93885840 (3) Chronic kidney disease Current Visit: Yes Status: Chronic Priority: Medium Code(s): N18.9 - CHRONIC KIDNEY DISEASE, UNSPECIFIED SNOMED Code(s): 035282760 Plan: 1patient presented hospital with sepsis in this patient who did have fever tachycardia elevated white count meeting criteria for SIRS source is left lower extremity cellulitis in this patient did have diffuse swelling and redness some ruptured blister and evidence of athlete's foot all pointing towards likely gram-positive skin darren such as strep 2-patient with a chronic kidney disease worsening creatinine high risk of nephrotoxicity from vancomycin which was discontinued 3-patient culture grew strep Proteus present MRSA and Enterococcus 4patient is afebrile white count is trending down though slowly 5patient will be treated with cefepime and daptomycin and will order midline for outpatient IV antibiotics Dictation was produced using [employer] dictation software. please excuse any grammatical, word or spelling errors. Time with Patient: Less than 30
[2025-01-08 08:16] LABS: BUN/Creat Ratio 35.27 Ratio (12.00-20.00); Blood Urea Nitrogen 38.8 mg/dL (9.0-27.0); Calcium 8.8 mg/dL (8.7-10.3); Carbon Dioxide 25.7 mmol/L (21.6-31.8); Chloride 97 mmol/L (96-109); Glucose 157 mg/dL (70-110); Potassium 3.7 mmol/L (3.5-5.5); Sodium 134 mmol/L (135-145)
[2025-01-08 08:37] LABS: HCT 28.7 % (39.6-50.0); MCHC 31.4 g/dL (32.0-37.0); MCV 89.4 FL (80.0-97.0); Mean Platelet Volume 10.6 FL (9.5-12.2); NRBC Per 100 WBC 0 X 10*3/uL (0.00-0.01); Platelet Count 628 X 10*3/uL (140-440); RBC 3.21 X 10*6/uL (4.40-5.60); RDW 16.7 % (11.5-14.5); WBC 19.26 X 10*3/uL (4.50-10.00)
[2025-01-08 09:57] LABS: Basophils # (M) 0 X 10*3/uL (0.00-0.10); Eosinophils # (M) 0.58 X 10*3/uL (0.04-0.35); Lymphocytes # (M) 4.04 X 10*3/uL (0.90-5.00); Monocytes # (M) 0.58 X 10*3/uL (0.20-1.00); Neutrophils # (M) 14.06 X 10*3/uL (1.80-7.70); Neutrophils % (M) 73 %; RBC Morphology Normal (Normal)
[2025-01-08 11:03] VITALS: BMI 34.0
[2025-01-08 12:48] LABS: Glucose,Whole Blood 176 mg/dL (70-110)
[2025-01-08 17:20] LABS: Glucose,Whole Blood 203 mg/dL (70-110)
[2025-01-08 21:01] LABS: Glucose,Whole Blood 226 mg/dL (70-110)
[2025-01-09 07:04] LABS: Glucose,Whole Blood 151 mg/dL (70-110)
[2025-01-09 08:17] LABS: Basophils # (A) 0.06 X 10*3/uL (0.00-0.10); Basophils % (A) 0.3 %; Eosinophils # (A) 0.23 X 10*3/uL (0.04-0.35); Eosinophils % (A) 1.3 %; HCT 28.9 % (39.6-50.0); Lymphocytes # (A) 3.02 X 10*3/uL (0.90-5.00); Lymphocytes % (A) 17.4 %; MCH 27.8 pg (27.0-32.0); MCHC 31.1 g/dL (32.0-37.0); MCV 89.2 FL (80.0-97.0); Mean Platelet Volume 10.3 FL (9.5-12.2); Monocytes # (A) 1.08 X 10*3/uL (0.20-1.00); Monocytes % (A) 6.2 %; NRBC Per 100 WBC 0 X 10*3/uL (0.00-0.01); Neutrophils # (A) 12.19 X 10*3/uL (1.80-7.70); Neutrophils % (A) 70.2 %; Platelet Count 600 X 10*3/uL (140-440); RBC 3.24 X 10*6/uL (4.40-5.60); RDW 16.5 % (11.5-14.5); WBC 17.38 X 10*3/uL (4.50-10.00)
[2025-01-09 08:39] LABS: BUN/Creat Ratio 38.08 Ratio (12.00-20.00); Blood Urea Nitrogen 45.7 mg/dL (9.0-27.0); Calcium 8.6 mg/dL (8.7-10.3); Chloride 92 mmol/L (96-109); Glucose 140 mg/dL (70-110); Magnesium 2.1 mg/dL (1.5-2.4); Potassium 4.1 mmol/L (3.5-5.5); Sodium 128 mmol/L (135-145)
--- NOTE | 2025-01-09 09:08 | P.PN ---
Subjective Progress Note Date: 01/08/25 74-year-old gentleman with past medical history significant for COPD, atrial fibrillation hyperlipidemia, history of cellulitis of lower extremities who is currently resident of [facility] presents the ER for shortness of breath and fever. According to EMR, patient has been having increasing shortness of breath for the last day, patient also having fevers with Tmax 102.6. There is no complaint of chills. There is no complaint of chest pain. There was no complaint of orthopnea or PND. Patient has chronic erythema a of lower extremities.Initial lab work done in the ER showed WBC 27.73, hemoglobin 13.2, platelet count 451, D-dimer 1.59, sodium 148, potassium 4.8, BUN 58, creatinine 2.08, lactate 3.3, troponin 0.052 Influenza A not detected Influenza B not detected RSV not detected COVID-19 not detected EKG done in the ER showed heart rate of 12, ST depression in lead I and aVL, no T-wave inversions seen. Chest x-ray done in the ER showed no acute cardiopulmonary process Patient admitted to internal medicine service, patient was initially admitted to general medical floor but later transferred to ICU 01/06/2025 - Patient is afebrile this morning patient is currently breathing comfortable increased nasal cannula oxygen slightly sleepy today did not answer any question no vomiting diarrhea or any other changes reported by the nursing staff. Patient white count is down to 21.37 creatinine is 1.3 -patient with a chronic kidney disease worsening creatinine high risk of nephrotoxicity from vancomycin which was discontinued -patient culture grew strep Proteus present MRSA and Enterococcus patient is afebrile white count is trending down patient will be treated with cefepime and daptomycin and monitor clinical course closely 01/07/2025 Patient is seen and evaluated and discussed with nursing staff Vital signs are reviewed reveal temperature of 98.1, pulse 75, respiration 18 and blood pressure 09/18/2003 over 63 Blood work reveals WBC slightly improved at 20.57, hemoglobin of 9.2 and platelet count of 552, sodium 138, potassium 3.9, BUN/creatinine of 39.7 and creatinine of 1.2 and blood glucose of 145 -patient presented hospital with sepsis in this patient who did have fever tachycardia elevated white count meeting criteria for SIRS source is left lower extremity cellulitis in this patient did have diffuse swelling and redness some ruptured blister and evidence of athlete's foot all pointing towards likely gram-positive skin darren such as strep -patient with a chronic kidney disease worsening creatinine high risk of ne phrotoxicity from vancomycin which was discontinued -patient culture grew strep Proteus present MRSA and Enterococcus -patient is afebrile white count is trending down -patient will be treated with cefepime and daptomycin and monitor clinical course closely 01/08/2025 Patient seen and evaluated in follow-up today with multiple consultations following including infectious disease and nephrology and is maintained on antibiotics in the form of daptomycin and cefepime and will receive a midline for outpatient IV antibiotics. Case management/social work following as patient will be returning to [facility] on discharge with continued antibiotics for the urinary tract infection along with ongoing cellulitis. Cultures finalized with Enterococcus and Proteus along with MRSA of the left lower extremity and will continue with local wound care. Patient continues to report significant amount of discomfort and weakness of that left lower extremity and dressing is currently dry and intact scheduled to be replaced today. White count remains elevated at 19.26 although it is trending down and hemoglobin is stable at 9.0 with no active bleeding noted. Sodium 134 with a potassium of 3.7, BUN 38.8 and creatinine 1.1. Will continue current regimen and monitor blood sugars closely. Most recent procalcitonin on 01/05/2025 was 2.46. Review of systems: Constitutional: No reports of fatigue, fever, or chills Cardiovascular: No reports of chest pain or palpitations Respiratory: No reports of shortness of breath or cough GI: No reports of nausea, vomiting, or diarrhea : No reports of dysuria or retention Neurovascular: reports of continued significant generalized weakness and left lower extremity discomfort All medications have been reviewed Physical exam: GENERAL: The patient is alert, 74-year-old male who is awake and oriented x 2-3, well-developed, elderly appearing, obese HEENT: Pupils are round and equally reacting to light. EOMI. No scleral icterus. No conjunctival pallor. Normocephalic, atraumatic. No pharyngeal erythema. No thyromegaly. CARDIOVASCULAR: S1 and S2 muffled PULMONARY: diminished breath in the bases bilaterally,, no wheezing or crackles. ABDOMEN: Soft, obese, nontender, nondistended, normoactive bowel sounds. No palpable organomegaly. MUSCULOSKELETAL: Left lower extremity extensive cellulitis and redness and swelling, minimally improved and dressing is dry and intact. EXTREMITIES: No cyanosis, clubbing, or pedal edema. NEUROLOGICAL: Gross neurological examination did not reveal any focal deficits. Diffusely weak SKIN: No rashes. As mentioned previously Assessment: Sepsis, present on admission secondary to urinary tract infection as well as laure lulitis UTI, present on admission with culture being negative Cellulitis of left lower extremity. Wound continues going Enterococcus faecalis and Proteus and staph SIMRAN on CKD due to ATN with severe sepsis Elevated troponin, likely type II mismatch secondary to sepsis and SIMRAN Elevated D-Dimer, likely due to sepsis, PE ruled out History of HFpEF, last known EF 55-60% in 2019, recent EF this month is 55 to 60% with normal left ventricular systolic function and no obvious regional wall motion abnormalities Hypertension history Hyperlipidemia Hypothyroidism Hypernatremia Obesity with a BMI of 34.8 GI prophylaxis DVT prophylaxis Full code Plan: Patient being followed by multiple consultations including infectious disease maintained on IV antibiotics and will receive a midline and continued local wound care to the left lower extremity along with right lower extremity and right foot by cleansing the area daily and applying absorbent of silver, ABD pad, rolled gauze and secured with tape to the left calf, right lower extremity right great toe apply honey gel and dry gauze with rolled gauze and secure with tape and may wrap with Mo wrap for compression, left lower extremity apply absorbent of silver to the open blistered area of the left hip and thigh and cover with ABD and Kerlix and this is to be done daily or if becoming soiled Follow-up on repeat labs and monitor white count is trending down Midline order placed and pending at this time and patient will be returning to [facility]. Discussed with case management/social work regarding discharge planning Patient would benefit from outpatient wound care and possible hyperbarics Due to multiple complex medical issues, overall prognosis is guarded The impression and plan of care has been dictated by Lexie Laurent Nurse Practitioner as directed. Dr. Rehana MD I have performed a history and examination and MDM of this patient, discussed the same with the dictator, and agree with the dictator's assessment and plan as written ,documented as a scribe. Based on total visit time, I have performed more than 50% of the visit. Objective - Vital Signs Vital signs: Vital Signs Temp 97.9 F 05/12/25 07:20 Pulse 72 01/08/25 08:02 Resp 18 01/08/25 07:20 BP 137/74 01/08/25 07:20 Pulse Ox 95 01/08/25 07:50 FiO2 Intake & Output 01/07/25 01/08/25 01/08/25 18:59 06:59 18:59 Intake Total 4440 Output Total 2501 600 Balance 1939 -600 Weight 107.5 kg Intake: Oral 4440 Output: Urine 2500 600 Stool 1 Other: Voiding Method Indwelling Catheter Indwelling Catheter Indwelling Catheter - Labs CBC & Chem 7: 01/09/25 03:49 01/09/25 03:49 Labs: Abnormal Lab Results - Last 24 Hours (Table) 01/07/25 01/07/25 01/07/25 Range/Units 05:26 05:26 12:22 WBC 20.57 H (4.50-10.00) X 10*3/uL RBC 3.29 L (4.40-5.60) X 10*6/uL Hgb 9.2 L (13.0-17.0) g/dL Hct 29.6 L (39.6-50.0) % MCHC 31.1 L (32.0-37.0) g/dL RDW 16.9 H (11.5-14.5) % Plt Count 552 H (140-440) X 10*3/uL Neutrophils # (Manual) 15.63 H (1.80-7.70) X 10*3/uL Monocytes # (Manual) 1.85 H (0.20-1.00) X 10*3/uL Eosinophils # (Manual) 0 L (0.04-0.35) X 10*3/uL Sodium (135-145) mmol/L Anion Gap 12.60 H (4.00-12.00) mmol/L BUN 39.7 H (9.0-27.0) mg/dL BUN/Creatinine Ratio 33.08 H (12.00-20.00) Ratio Glucose 145 H (70-110) mg/dL POC Glucose (mg/dL) 180 H (70-110) mg/dL 01/07/25 01/07/25 01/08/25 Range/Units 17:10 20:20 04:32 WBC 19.26 H (4.50-10.00) X 10*3/uL RBC 3.21 L (4.40-5.60) X 10*6/uL Hgb 9.0 L (13.0-17.0) g/dL Hct 28.7 L (39.6-50.0) % MCHC 31.4 L (32.0-37.0) g/dL RDW 16.7 H (11.5-14.5) % Plt Count 628 H (140-440) X 10*3/uL Neutrophils # (Manual) (1.80-7.70) X 10*3/uL Monocytes # (Manual) (0.20-1.00) X 10*3/uL Eosinophils # (Manual) (0.04-0.35) X 10*3/uL Sodium (135-145) mmol/L Anion Gap (4.00-12.00) mmol/L BUN (9.0-27.0) mg/dL BUN/Creatinine Ratio (12.00-20.00) Ratio Glucose (70-110) mg/dL POC Glucose (mg/dL) 182 H 227 H (70-110) mg/dL 01/08/25 01/08/25 Range/Units 04:32 07:22 WBC (4.50-10.00) X 10*3/uL RBC (4.40-5.60) X 10*6/uL Hgb (13.0-17.0) g/dL Hct (39.6-50.0) % MCHC (32.0-37.0) g/dL RDW (11.5-14.5) % Plt Count (140-440) X 10*3/uL Neutrophils # (Manual) (1.80-7.70) X 10*3/uL Monocytes # (Manual) (0.20-1.00) X 10*3/uL Eosinophils # (Manual) (0.04-0.35) X 10*3/uL Sodium 134 L (135-145) mmol/L Anion Gap (4.00-12.00) mmol/L BUN 38.8 H (9.0-27.0) mg/dL BUN/Creatinine Ratio 35.27 H (12.00-20.00) Ratio Glucose 157 H (70-110) mg/dL POC Glucose (mg/dL) 153 H (70-110) mg/dL
[2025-01-09 12:29] LABS: Glucose,Whole Blood 202 mg/dL (70-110)
[2025-01-09 12:32] VITALS: BP 160/69; RESP 18; TEMP 98.6
--- NOTE | 2025-01-09 15:15 | P.PN ---
Subjective Progress Note Date: 01/08/25 Principal diagnosis: Reason for follow-up is left lower extremity cellulitis Patient is a 74-year-old male with a past medical history significant for hypertension hyperlipidemia heart failure atrial fibrillation renal disorder, patient has been brought into the hospital from a local intermediate concerning for fever shortness of breath and the patient was noticed to have increasing swelling and redness to the left lower extremity has been diagnosed with cellulitis prompted this consultation. On today's evaluation that is 01/08/2025,the patient remains to be afebrile, patient is on 3 L nasal cannula supplemental oxygen and denies any shortness of breath no chest pain or cough.Patient denies having any nausea or vomiting, no abdominal pain and no diarrhea has been reported some discomfort in the left lower extremity. Patient white count is down to 19.26 creatinine is 1.1 Objective - Vital Signs Vital signs: Vital Signs Temp 97.9 F 01/08/25 07:20 Pulse 68 01/08/25 07:50 Resp 18 01/08/25 07:20 BP 137/74 01/08/25 07:20 Pulse Ox 95 01/08/25 07:50 FiO2 Intake & Output 01/07/25 01/08/25 01/08/25 18:59 06:59 18:59 Intake Total 4440 Output Total 2501 600 Balance 1939 -600 Weight 107.5 kg Intake: Oral 4440 Output: Urine 2500 600 Stool 1 Other: Voiding Method Indwelling Catheter Indwelling Catheter - Exam GENERAL DESCRIPTION: An elderly male lying in bed in no distress RESPIRATORY SYSTEM: Unlabored breathing , decreased breath sounds at bases HEART: S1 S2 regular rate and rhythm , ABDOMEN: Soft , no tenderness EXTREMITIES: Left lower extremity with significant maceration and superficial ulceration - Labs CBC & Chem 7: 01/09/25 03:49 01/09/25 03:49 Labs: Abnormal Lab Results - Last 24 Hours (Table) 01/07/25 01/07/25 01/07/25 Range/Units 05:26 05: 12:22 WBC 20.57 H (4.50-10.00) X 10*3/uL RBC 3.29 L (4.40-5.60) X 10*6/uL Hgb 9.2 L (13.0-17.0) g/dL Hct 29.6 L (39.6-50.0) % MCHC 31.1 L (32.0-37.0) g/dL RDW 16.9 H (11.5-14.5) % Plt Count 552 H (140-440) X 10*3/uL Neutrophils # (Manual) 15.63 H (1.80-7.70) X 10*3/uL Monocytes # (Manual) 1.85 H (0.20-1.00) X 10*3/uL Eosinophils # (Manual) 0 L (0.04-0.35) X 10*3/uL Anion Gap 12.60 H (4.00-12.00) mmol/L BUN 39.7 H (9.0-27.0) mg/dL BUN/Creatinine Ratio 33.08 H (12.00-20.00) Ratio Glucose 145 H (70-110) mg/dL POC Glucose (mg/dL) 180 H (70-110) mg/dL 01/07/25 01/07/25 01/08/25 Range/Units 17:10 20:20 07:22 WBC (4.50-10.00) X 10*3/uL RBC (4.40-5.60) X 10*6/uL Hgb (13.0-17.0) g/dL Hct (39.6-50.0) % MCHC (32.0-37.0) g/dL RDW (11.5-14.5) % Plt Count (140-440) X 10*3/uL Neutrophils # (Manual) (1.80-7.70) X 10*3/uL Monocytes # (Manual) (0.20-1.00) X 10*3/uL Eosinophils # (Manual) (0.04-0.35) X 10*3/uL Anion Gap (4.00-12.00) mmol/L BUN (9.0-27.0) mg/dL BUN/Creatinine Ratio (12.00-20.00) Ratio Glucose (70-110) mg/dL POC Glucose (mg/dL) 182 H 227 H 153 H (70-110) mg/dL Assessment and Plan (1) Cellulitis of left leg Current Visit: Yes Status: Acute Code(s): L03.116 - CELLULITIS OF LEFT LOWER LIMB SNOMED Code(s): 84298368917675979 (2) Sepsis Current Visit: Yes Status: Acute Code(s): A41.9 - SEPSIS, UNSPECIFIED ORGANISM SNOMED Code(s): 73817822 (3) Chronic kidney disease Current Visit: Yes Status: Chronic Priority: Medium Code(s): N18.9 - CHRONIC KIDNEY DISEASE, UNSPECIFIED SNOMED Code(s): 917080396 Plan: 1patient presented hospital with sepsis in this patient who did have fever tachycardia elevated white count meeting criteria for SIRS source is left lower extremity cellulitis in this patient did have diffuse swelling and redness some ruptured blister and evidence of athlete's foot all pointing towards likely gram-positive skin darren such as strep 2-patient with a chronic kidney disease worsening creatinine high risk of nephrotoxicity from vancomycin which was discontinued 3-patient culture grew strep Proteus present MRSA and Enterococcus 4patient is afebrile white count is trending down though slowly 5patient did have significant maceration of the left lower extremity local care has been discussed with the nursing staff to switch to dry Aquacel dressing followed by Mo wrap. 6patient to continue with the cefepime and daptomycin will need IV antibiotics on discharge Dictation was produced using [employer] dictation software. please excuse any grammatical, word or spelling errors. Time with Patient: Less than 30
--- NOTE | 2025-01-09 15:16 | P.PN ---
Subjective Progress Note Date: 01/09/25 Principal diagnosis: Reason for follow-up is left lower extremity cellulitis Patient is a 74-year-old male with a past medical history significant for hypertension hyperlipidemia heart failure atrial fibrillation renal disorder, patient has been brought into the hospital from a local snf concerning for fever shortness of breath and the patient was noticed to have increasing swelling and redness to the left lower extremity has been diagnosed with cellulitis prompted this consultation. On today's evaluation that is 01/09/2025, the patient continues to be afebrile, the patient is on 3 L current oxygen and breathing comfortably, the Pt denies having any chest pain or cough, the patient denies having any abdominal pain no vomiting or any diarrhea has been reported by the nursing staff still some pain to the left lower extremity but no worsening. Patient did have white count of 17.38 creatinine is 1.2 local culture with Proteus MRSA Enterococcus faecalis Objective - Vital Signs Vital signs: Vital Signs Temp 98.6 F 01/09/25 12:22 Pulse 85 01/09/25 12:22 Resp 18 01/09/25 12:22 BP 160/69 01/09/25 12:22 Pulse Ox 96 01/09/25 12:22 FiO2 Intake & Output 01/08/25 01/09/25 01/09/25 18:59 06:59 18:59 Intake Total 540 Output Total 1648 867 4275 Balance -1100 -360 -1500 Weight 107.5 kg 110 kg Intake: Oral 540 Output: Urine 5334 112 0143 Other: Voiding Method Indwelling Catheter Indwelling Catheter Indwelling Catheter - Exam GENERAL DESCRIPTION: An elderly male lying in bed in no distress RESPIRATORY SYSTEM: Unlabored breathing , decreased breath sounds at bases HEART: S1 S2 regular rate and rhythm , ABDOMEN: Soft , no tenderness EXTREMITIES: Left lower extremity currently dressed no drainage - Labs CBC & Chem 7: 01/09/25 03:49 01/09/25 03:49 Labs: Abnormal Lab Results - Last 24 Hours (Table) 01/08/25 01/08/25 01/09/25 Range/Units 17:18 20:56 03:49 WBC 17.38 H (4.50-10.00) X 10*3/uL RBC 3.24 L (4.40-5.60) X 10*6/uL Hgb 9.0 L (13.0-17.0) g/dL Hct 28.9 L (39.6-50.0) % MCHC 31.1 L (32.0-37.0) g/dL RDW 16.5 H (11.5-14.5) % Plt Count 600 H (140-440) X 10*3/uL Immature Gran # 0.80 H (0.00-0.04) X 10*3/uL Neutrophils # 12.19 H (1.80-7.70) X 10*3/uL Monocytes # 1.08 H (0.20-1.00) X 10*3/uL Sodium (135-145) mmol/L Chloride (96-109) mmol/L BUN (9.0-27.0) mg/dL BUN/Creatinine Ratio (12.00-20.00) Ratio Glucose (70-110) mg/dL POC Glucose (mg/dL) 203 H 226 H (70-110) mg/dL Calcium (8.7-10.3) mg/dL 01/09/25 01/09/25 01/09/25 Range/Units 03:49 07:00 12:20 WBC (4.50-10.00) X 10*3/uL RBC (4.40-5.60) X 10*6/uL Hgb (13.0-17.0) g/dL Hct (39.6-50.0) % MCHC (32.0-37.0) g/dL RDW (11.5-14.5) % Plt Count (140-440) X 10*3/uL Immature Gran # (0.00-0.04) X 10*3/uL Neutrophils # (1.80-7.70) X 10*3/uL Monocytes # (0.20-1.00) X 10*3/uL Sodium 128 L (135-145) mmol/L Chloride 92 L (96-109) mmol/L BUN 45.7 H (9.0-27.0) mg/dL BUN/Creatinine Ratio 38.08 H (12.00-20.00) Ratio Glucose 140 H (70-110) mg/dL POC Glucose (mg/dL) 151 H 202 H (70-110) mg/dL Calcium 8.6 L (8.7-10.3) mg/dL Assessment and Plan (1) Cellulitis of left leg Current Visit: Yes Status: Acute Code(s): L03.116 - CELLULITIS OF LEFT LOWER LIMB SNOMED Code(s): 04249332802352927 (2) Sepsis Current Visit: Yes Status: Acute Code(s): A41.9 - SEPSIS, UNSPECIFIED ORGANISM SNOMED Code(s): 30197354 (3) Chronic kidney disease Current Visit: Yes Status: Chronic Priority: Medium Code(s): N18.9 - CHRONIC KIDNEY DISEASE, UNSPECIFIED SNOMED Code(s): 409523924 Plan: 1patient presented hospital with sepsis in this patient who did have fever tach ycardia elevated white count meeting criteria for SIRS source is left lower extremity cellulitis in this patient did have diffuse swelling and redness some ruptured blister and evidence of athlete's foot all pointing towards likely gram-positive skin darren such as strep 2-patient with a chronic kidney disease worsening creatinine high risk of nephrotoxicity from vancomycin which was discontinued 3-patient culture grew strep Proteus present MRSA and Enterococcus 4patient is afebrile white count is trending down though slowly 5left lower extremity local wound care with dry Aquacel dressing followed by Mo wrap change q. 48-hour. 6patient to continue with the cefepime and daptomycin however can be transitioned to Rocephin 2 g daily and continue with the same dose of daptomycin for total of 2 weeks on discharge discussed with the [employer] S[employer]S ASSISTANT for admitting team Dictation was produced using [employer] dictation software. please excuse any grammatical, word or spelling errors.
[2025-01-09 15:40] VITALS: PULSE 80
--- NOTE | 2025-01-09 15:40 | P.DS ---
Providers Date of admission: 12/29/24 20:10 Expected date of discharge: 01/09/25 Attending physician: Hao Silva Consults: 12/30/24 06:44 Consult Physician Routine Consulting Provider: Mary Ann Rodriguez Consult Reason/Comments: hypernatremia, SIMRAN Do you want consulting provider notified?: Yes 12/30/24 06:45 Consult Physician Routine Consulting Provider: Dylan Bennett Consult Reason/Comments: sepsis; left calf DTI Do you want consulting provider notified?: Yes 12/30/24 06:51 Consult Physician Routine Consulting Provider: Danny Chavez Consult Reason/Comments: ICU mgt Do you want consulting provider notified?: Yes Primary care physician: China Kaur DO Hospital Course: Final diagnosis Sepsis, present on admission secondary to urinary tract infection as well as cellulitis of left lower extremity UTI, present on admission with culture being negative Cellulitis of left lower extremity. Wound continues going Enterococcus faecalis and Proteus and MRSA SIMRAN on CKD due to ATN with severe sepsis Elevated troponin, likely type II mismatch secondary to sepsis and SIMRAN Elevated D-Dimer, likely due to sepsis, PE ruled out History of HFpEF, last known EF 55-60% in 2019, recent EF this month is 55 to 60% with normal left ventricular systolic function and no obvious regional wall motion abnormalities Hypertension history Diabetes mellitus, type 2 uncontrolled with hyper and hypoglycemia Hyperlipidemia Hypothyroidism Hypernatremia Obesity with a BMI of 34.8 GI prophylaxis DVT prophylaxis Full code Discharge disposition Patient is being discharged in a stable condition with guarded prognosis to [facility]. Patient will follow-up with Dr. Kaur in the outpatient setting upon discharge. Patient is to continue with midline and IV antibiotics per ID recommendations for 2 weeks in the form of ceftriaxone 2 g daily along with daptomycin 400 mg daily for 2 weeks as well and outpatient follow-up with the wound care center as scheduled. Repeat labs of CBC, CMP, magnesium in 2 to 3 days to monitor closely. Total time taken is greater than 35 minutes. Hospital course This is a 74-year-old male who was recently admitted with sepsis, present on admission with initial concerns of urinary tract infection and cultures were negative also noted to have significant left lower extremity cellulitis with wound cultures growing Enterococcus fasciitis along with Proteus and staph. Patient was in the ICU for quite some time and has had prolonged hospitalization and is significantly weak will be returning to [facility] on discharge. Patient with significant left lower extremity cellulitis continued on wound care recommending outpatient follow-up with the wound care and would likely benefit from hyperbarics. Patient did receive a midline and will continue on daptomycin along with ceftriaxone for 2 weeks course per ID recommendations. Patient was evaluated by speech showing some improvements and is continued on consistent carb dysphagia pured diet and recommend to continue with aspiration precautions and slowly advance in the outpatient setting as tolerated. Patient has been cleared by consultations and will be returning to [facility]. Please refer to other consultation notes for further HPI. Currently no reports of chest pain, shortness of breath, or palpitations. Patient is afebrile. No reports of nausea or vomiting and patient is tolerating diet. Patient will be going to [facility] today. If patient requires rehospitalization regarding lower extremity cellulitis, would recommend a facility that can accommodate hyperbarics. Guarded prognosis and high risk for readmissions given significant comorbidities. Physical exam: Gen: This is a 74-year-old male who is awake, alert and oriented x 2, baseline, well-developed, elderly appearing, ill-appearing, obese HEENT: Head is atraumatic, normocephalic. Pupils equal, round. Sclerae is anicte romel. NECK: Supple. No JVD. No lymphadenopathy. No thyromegaly. LUNGS: Diminished breath sounds bilaterally otherwise clear to auscultation. No wheezes or rhonchi. No intercostal retractions. HEART: S1, S2 are muffled ABDOMEN: Soft. Obese bowel sounds are present. No masses. No tenderness. EXTREMITIES: No pedal edema. No calf tenderness. Left lower extremity dressing is dry and intact NEUROLOGICAL: Patient is awake, alert and oriented x2. Cranial nerves 2 through 12 are grossly intact. Diffusely weak Please refer to medication reconciliation sheet for a list of medications. The impression and plan of care has been dictated by Lexie Laurent, Nurse Practitioner as directed. Dr. Rehana MD I have performed a history and examination and MDM of this patient, discussed t he same with the dictator, and agree with the dictator's assessment and plan as written ,documented as a scribe. Based on total visit time, I have performed more than 50% of the visit. Patient Condition at Discharge: Fair Plan - Discharge Summary Discharge Rx Participant: No New Discharge Prescriptions: New Heparin Sodium,Porcine (1 ml) [Heparin Sodium] 5,000 unit SQ Q8HR each Insulin Glargine (Lantus) [Lantus Vial] 20 unit SQ DAILY@0700 each Nystatin 100,000 Unit/gm Powd [Mycostatin Powder] 1 applic TOPICAL BID each cefTRIAXone [Rocephin] 2 gm IVPB Q24H 14 Days #14 each DAPTOmycin [Cubicin] 400 mg IVPB Q24HR 14 Days #14 each INSULIN LISPRO (HumaLOG) [HumaLOG] 0 unit SQ ACHS each Sodium Bicarbonate Tab 650 mg PO BID tab Acetaminophen Tab [Tylenol] 650 mg PO Q6HR PRN tab PRN Reason: Mild Pain Or Fever > 100.5 Continue Atorvastatin [Lipitor] 20 mg PO HS@2000 Aspirin [[place] Aspirin EC] 81 mg PO DAILY Magnesium Oxide [Magox 400] 400 mg PO HS metFORMIN HCL [Glucophage] 500 mg PO BID@0700,1600 Ipratropium-Albuterol Nebulize [Duoneb 0.5 mg-3 mg/3 ml Soln] 3 ml INHALATION RT-Q8H PRN PRN Reason: Shortness Of Breath Montelukast [Singulair] 10 mg PO HS@1900 Icy Hot Advanced Relief 7.5% Patch 1 patch TRANSDERM DAILY@0700 Divalproex Sprinkle [Depakote Sprinkle] 125 mg PO BID@0700,1600 DULoxetine HCL [Cymbalta] 60 mg PO DAILY@0700 Naloxone HCl 0.4 mg SQ DIRECTED PRN PRN Reason: suspected opiod overdose Naloxone HCl 4 mg NASAL DIRECTED PRN PRN Reason: suspected opiod overdose Ipratropium-Albuterol Nebulize [Duoneb 0.5 mg-3 mg/3 ml Soln] 3 ml INHALATION RT-Q4H PRN PRN Reason: Shortness Of Breath Or Wheezing Melatonin 3 mg PO HS Budesonide/Formoterol Fumarate [Symbicort 160-4.5 Mcg Inhaler] 2 puff INHALATION RT-BID Cholecalciferol [Vitamin D3 (25 Mcg = 1000 Iu)] 75 mcg PO DAILY Lactulose 20 gm PO DAILY Ferrous Sulfate [Iron (65 MG Elemental)] 325 mg PO HS Gabapentin [Neurontin] 300 mg PO TID@0700,1300,1900 Brimonidine Tartrate [Alphagan P 0.15% Ophth Soln] 1 drop BOTH EYES TID@0700,1300,1900 Levothyroxine Sodium [Synthroid] 88 mcg PO DAILY@0500 Docusate [Colace] 100 mg PO BID tea tree oiL [Tea Tree Oil] 1 applic TOPICAL HS Furosemide [Lasix] 40 mg PO DAILY #0 oxyCODONE-APAP 10-325MG [Percocet 10-325 mg] 1 tab PO Q4H #6 tab Discontinued Alfuzosin HCl [Alfuzosin HCl ER] 10 mg PO DAILY allopurinoL [Zyloprim] 100 mg PO DAILY Discharge Medication List Aspirin [[place] Aspirin EC] 81 mg PO DAILY 12/24/18 [History] Atorvastatin [Lipitor] 20 mg PO HS@199912/24/18 [History] Budesonide/Formoterol Fumarate [Symbicort 160-4.5 Mcg Inhaler] 2 puff INHALATION RT-BID 01/13/23 [History] Cholecalciferol [Vitamin D3 (25 Mcg = 1000 Iu)] 75 mcg PO DAILY 01/13/23 [History] Ferrous Sulfate [Iron (65 MG Elemental)] 325 mg PO HS 01/13/23 [History] Lactulose 20 gm PO DAILY 01/13/23 [History] Magnesium Oxide [Magox 400] 400 mg PO HS 01/13/23 [History] Melatonin 3 mg PO HS 01/13/23 [History] Brimonidine Tartrate [Alphagan P 0.15% Ophth Soln] 1 drop BOTH EYES TID@0700,1300,1900 12/29/24 [History] DULoxetine HCL [Cymbalta] 60 mg PO DAILY@0712/29/24 [History] Divalproex Sprinkle [Depakote Sprinkle] 125 mg PO BID@0700,1600 12/29/24 [History] Docusate [Colace] 100 mg PO BID 12/29/24 [History] Gabapentin [Neurontin] 300 mg PO TID@0700,1300,1900 12/29/24 [History] Icy Hot Advanced Relief 7.5% Patch 1 patch TRANSDERM DAILY@69912/29/24 [History] Ipratropium-Albuterol Nebulize [Duoneb 0.5 mg-3 mg/3 ml Soln] 3 ml INHALATION RT-Q4H PRN 12/29/24 [History] Ipratropium-Albuterol Nebulize [Duoneb 0.5 mg-3 mg/3 ml Soln] 3 ml INHALATION RT-Q8H PRN 12/29/24 [History] Levothyroxine Sodium [Synthroid] 88 mcg PO DAILY@0500 12/29/24 [History] Montelukast [Singulair] 10 mg PO HS@1900 12/29/24 [History] Naloxone HCl 0.4 mg SQ DIRECTED PRN 12/29/24 [History] Naloxone HCl 4 mg NASAL DIRECTED PRN 12/29/24 [History] metFORMIN HCL [Glucophage] 500 mg PO BID@0700,1600 12/29/24 [History] tea tree oiL [Tea Tree Oil] 1 applic TOPICAL HS 12/29/24 [History] Acetaminophen Tab [Tylenol] 650 mg PO Q6HR PRN tab 01/09/25 [Rx] DAPTOmycin [Cubicin] 400 mg IVPB Q24HR 14 Days #14 each 01/09/25 [Rx] Furosemide [Lasix] 40 mg PO DAILY #0 01/09/25 [Rx] Heparin Sodium,Porcine (1 ml) [Heparin Sodium] 5,000 unit SQ Q8HR each 01/09/25 [Rx] INSULIN LISPRO (HumaLOG) [HumaLOG] 0 unit SQ ACHS each 01/09/25 [Rx] Insulin Glargine (Lantus) [Lantus Vial] 20 unit SQ DAILY@0700 each 01/09/25 [Rx] Nystatin 100,000 Unit/gm Powd [Mycostatin Powder] 1 applic TOPICAL BID each 01/09/25 [Rx] Sodium Bicarbonate Tab 650 mg PO BID tab 01/09/25 [Rx] cefTRIAXone [Rocephin] 2 gm IVPB Q24H 14 Days #14 each 01/09/25 [Rx] oxyCODONE-APAP 10-325MG [Percocet 10-325 mg] 1 tab PO Q4H #6 tab 01/09/25 [Rx] Follow up Appointment(s)/Referral(s): China Kaur DO [Primary Care Provider] - 1-2 days Wound [facility] [NON-STAFF] - 1 Week Activity/Diet/Wound Care/Special Instructions: Patient is returning to [facility] Activity as tolerated Follow-up with primary care provider on discharge Continue with IV antibiotics and has received a midline and will continue daptomycin daily for 2 weeks along with ceftriaxone 2 g daily for 2 weeks in the outpatient setting Follow-up with the wound care center Continue with local wound care on Wednesday//Wednesday to the left lower extremity, right lower extremity and right foot Left calf: Apply absorptive silver, ABD, rolled gauze and secure with paper tape, right lower extremity and right great toe apply honey gel, dry gauze, rolled gauze and secure with tape and wrap with Mo wrap for compression. These may be changed every other day or if becoming soiled Left lower extremity: Apply absorptive silver to the open blistered area of the hip and thigh continue with covering with ABD pad and Kerlix daily or if becoming soiled Continue consistent carb diet with dysphagia 1 pured and aspiration precautions with head of bed elevated 30 to 45 degrees Continue with Sergio supplements twice daily with meals for lunch and dinner Follow-up with the wound care center outpatient and may benefit from hyperbarics outpatient which is not provided at [facility], to discuss further with the wound care center Continue Accu-Cheks AC and at bedtime NovoLog sliding scale 0-150 equals 0 units 151-200 equals 2 units 201-250 equals 4 units 251-300 equals 6 units 301-350 equals 8 units 351-400 equals 10 units Please notify provider if blood sugar is 400 or above Discharge Disposition: TRANSFER TO SNF/F
[2025-01-09 17:00] LABS: Glucose,Whole Blood 227 mg/dL (70-110)
--- NOTE | 2025-01-11 09:20 | CDI ---
Documentation Clarification Form Date: 01/11/25 From: Sierra Jay Admit Date: 12/29/2024 08:10:00 PM Patient Name: Carlos Payan Visit Number: [id number] Discharge Date: 01/09/2025 07:08:00 PM ATTENTION: The Clinical Documentation Specialists (CDI) and [facility] Coding Staff appreciate your assistance in clarifying documentation. Please respond to the clarification below the line at the bottom and electronically sign. The CDI & [facility] Coding staff will review the response and follow-up if needed. Please note: Queries are made part of the Legal Health Record. If you have any questions, please contact the author of this message via ITS. Dr. Jessica Kimball, Your patient has shortness of breath, respiratory distress, wheezes, and accessory muscle use, decreased breath sounds and prolonged expiratory per ED Note. Based on this information and the findings below, is there an additional diagnosis that is clinically appropriate for this patient? History/Risk Factors: COPD, never smoked, HLD, PAF, cellulitis of lower extremity, T2DM Tobacco use: never Home oxygen: Admitted without home oxygen Clinical Indicators: Shortness of breath, respiratory distress, wheezes, accessory muscle use Vital signs: T 99.3, P 124, R 30, BP 143/85 Pulse oximetry: 98 on NC Lung/Breathing assessment: SOB w/Activity, talks in phrases ABG/CBG: pH 7.37 pO2 90 pCO2 46 Plasma Lactic Acid: 3.3/3.5 Treatment: Duoneb, O2 4L, switched to 2 L and then switched to 3L Continuous Pulse ox Is there an additional diagnosis that is clinically appropriate for this patient? [ x ] Acute Hypoxic Respiratory Failure [ ] Acute Hypercapnic Respiratory Failure [ ] Acute Respiratory Distress [ ] Acute Respiratory Insufficiency [ ] No additional diagnosis/not clinically significant [ ] Other Diagnosis, please specify [ ] Unable to determine MTDD
--- NOTE | 2025-01-11 09:37 | CDI ---
Documentation Clarification Form Date: 01/11/25 From: Sierra Jay Admit Date: 12/29/2024 08:10:00 PM Patient Name: Carlos Payan Visit Number: [id number] Discharge Date: 01/09/2025 07:08:00 PM ATTENTION: The Clinical Documentation Specialists (CDI) and [facility] Coding Staff appreciate your assistance in clarifying documentation. Please respond to the clarification below the line at the bottom and electronically sign. The CDI & [facility] Coding staff will review the response and follow-up if needed. Please note: Queries are made part of the Legal Health Record. If you have any questions, please contact the author of this message via ITS. Doctor/Provider: Jessica Kimball, Your patient has the documented symptom of Altered Mental Status in the ED Note. Additional clarification regarding the etiology/cause of this symptom is requested. History/Risk Factors: COPD, never smoked, HLD, PAF, cellulitis of lower extremity, T2DM Clinical Indicators: Temp max at 102.6, sepsis severe with ATN Labs: WBC 27.73, Lactate 3.3/3.5, Procalcitonin 2.46 01/05 CT Scan: No acuteintracranial hemorrhageor significant acute midline shift. Large left sidedcraniotomydefect and extensiveencephalomalaciainvolving the right frontal and parietal lobes .If there is continued underlyingconical concern for acuteischemia, recommendMRIfor betterevaluation. Patchy periventricular and subcortical white matter hypoattenuationlikely reflect chronic microvascularischemicdisease. Treatment: IV Cefepime, IV Ceftriaxone, IV Daptomycin, IV Vancomycin, IV fluids Please clarify the etiology of the symptom of Altered Mental Status: [ x ] Acute metabolic nephropathy due to infection and sepsis [ ] Delirium (specify cause): [ ] Dementia (if know, specify Type and if with/without Behavioral Disturbance) [ ] Other condition (please specify) [ ] Unable to determine (Template Last Revised: September 2020) MTDD
--- NOTE | 2025-01-12 11:31 | CDI ---
Documentation Clarification Form Date: 01/12/25 From: Sierra Jay Admit Date: 12/29/2024 08:10:00 PM Patient Name: Carlos Payan Visit Number: [id number] Discharge Date: 01/09/2025 07:08:00 PM ATTENTION: The Clinical Documentation Specialists (CDI) and [facility] Coding Staff appreciate your assistance in clarifying documentation. Please respond to the clarification below the line at the bottom and electronically sign. The CDI & [facility] Coding staff will review the response and follow-up if needed. Please note: Queries are made part of the Legal Health Record. If you have any questions, please contact the author of this message via ITS. Doctor/Provider: Jessica Kimball, I'm resubmitting query for further clarification. Your patient has the documented symptom of Altered Mental Status in the ED Note. Additional clarification regarding the etiology/cause of this symptom is requested. History/Risk Factors: COPD, never smoked, HLD, PAF, cellulitis of lower extremity, T2DM Clinical Indicators: Temp max at 102.6, sepsis severe with ATN Labs: WBC 27.73, Lactate 3.3/3.5, Procalcitonin 2.46 01/05 CT Scan: No acuteintracranial hemorrhageor significant acute midline shift. Large left sidedcraniotomydefect and extensiveencephalomalaciainvolving the right frontal and parietal lobes .If there is continued underlyingconical concern for acuteischemia, recommendMRIfor betterevaluation. Patchy periventricular and subcortical white matter hypoattenuationlikely reflect chronic microvascularischemicdisease. Treatment: IV Cefepime, IV Ceftriaxone, IV Daptomycin, IV Vancomycin, IV fluids Please clarify the etiology of the symptom of Altered Mental Status: [ x ] Acute metabolic encephalopathy due to nephropathy, infection and sepsis [ ] Delirium (specify cause): [ ] Dementia (if know, specify Type and if with/without Behavioral Disturbance) [ ] Other condition (please specify) [ ] Unable to determine MTDD
== END 2025-01-09 19:08 | DRG 871 ==
LOC: EC 16:30 → 3SCARD 20:10 → 2SICU 12-30 07:16 → 5NMEDONC 01-03 19:09
PROVIDERS: ADMIT Hospitalist; ATTEND Hospitalist
PROC: 05HC33Z Insertion of Infusion Device into Left Basilic Vein, Percutaneous Approach (ICD-10-PCS; principal; 2025-01-08 12:30)
DX: A41.9 Sepsis, unspecified organism (principal); G93.41 Metabolic encephalopathy; I21.A1 Myocardial infarction type 2; N17.0 Acute kidney failure with tubular necrosis; J96.01 Acute respiratory failure with hypoxia; E87.21 Acute metabolic acidosis; E87.0 Hyperosmolality and hypernatremia; D63.1 Anemia in chronic kidney disease; I13.0 Hypertensive heart and chronic kidney disease with heart failure and stage 1 through stage 4 chronic kidney disease, or unspecified chronic kidney disease; N18.31 Chronic kidney disease, stage 3a; J44.9 Chronic obstructive pulmonary disease, unspecified; E11.22 Type 2 diabetes mellitus with diabetic chronic kidney disease; E03.9 Hypothyroidism, unspecified; Z68.34 Body mass index [BMI] 34.0-34.9, adult; F32.A Depression, unspecified; I35.0 Nonrheumatic aortic (valve) stenosis; L97.122 Non-pressure chronic ulcer of left thigh with fat layer exposed; I50.32 Chronic diastolic (congestive) heart failure; L97.222 Non-pressure chronic ulcer of left calf with fat layer exposed; L97.812 Non-pressure chronic ulcer of other part of right lower leg with fat layer exposed; L03.116 Cellulitis of left lower limb; N39.0 Urinary tract infection, site not specified; L03.115 Cellulitis of right lower limb; I48.0 Paroxysmal atrial fibrillation; R65.20 Severe sepsis without septic shock; E11.621 Type 2 diabetes mellitus with foot ulcer; E11.622 Type 2 diabetes mellitus with other skin ulcer; L98.492 Non-pressure chronic ulcer of skin of other sites with fat layer exposed; E11.65 Type 2 diabetes mellitus with hyperglycemia; B35.3 Tinea pedis; R13.10 Dysphagia, unspecified; E66.9 Obesity, unspecified; B96.4 Proteus (mirabilis) (morganii) as the cause of diseases classified elsewhere; B95.2 Enterococcus as the cause of diseases classified elsewhere; B96.1 Klebsiella pneumoniae [K. pneumoniae] as the cause of diseases classified elsewhere; E86.0 Dehydration; F41.9 Anxiety disorder, unspecified; E78.5 Hyperlipidemia, unspecified; Z79.82 Long term (current) use of aspirin; Z79.51 Long term (current) use of inhaled steroids; Z79.890 Hormone replacement therapy; Z79.84 Long term (current) use of oral hypoglycemic drugs; Z79.891 Long term (current) use of opiate analgesic; Z79.899 Other long term (current) drug therapy
CPT/HCPCS: 36410; 36415; 36600; 70450; 71045; 76770; 76937; 80048; 80053; 81001; 82805; 83036; 83605; 83735; 83880; 84100; 84145; 84443; 84484; 85025; 85027; 85379; 85610; 85730; 87040; 87070; 87075; 87077; 87086; 87186; 87205; 87636; 93005; 93306; 94640; 94760; 96361; 96365; 96375; 99291

== ENCOUNTER 2025-01-14 09:45 | Inpatient (IN) | payer MEDICARE, OTHER ==
--- NOTE | 2025-01-14 10:03 | ED ---
General Adult HPI - General Chief complaint: Altered Mental Status Stated complaint: AMS Time Seen by Provider: 01/14/25 09:47 Source: EMS Mode of arrival: EMS Limitations: no limitations - History of Present Illness Initial comments: Dictation was produced using [employer] dictation software. please excuse any grammatical, word or spelling errors. Chief Complaint: 74-year-old male with altered mental status History of Present Illness: Patient 74-year-old male brought into the emergency department for altered mental status patient currently resident at one of the local nursing homes. Patient currently on 2 antibiotics for treatment of multiple infections. EMS upon arrival states that he was placed on noninvasive ventilation due to positive auscultatory findings he was not found to be hypoxic or tachypneic or showing any signs of respiratory distress. Patient is allegedly full code Unable to obtain ROS secondary to mental status - Related Data Home Medications Medication Instructions Recorded Confirmed Aspirin [[place] Aspirin EC] 81 mg PO DAILY 12/24/18 12/29/24 Atorvastatin [Lipitor] 20 mg PO HS@199912/24/18 12/29/24 Budesonide/Formoterol Fumarate 2 puff INHALATION RT-BID 01/13/23 12/29/24 [Symbicort 160-4.5 Mcg Inhaler] Cholecalciferol [Vitamin D3 (25 75 mcg PO DAILY 01/13/23 12/29/24 Mcg = 1000 Iu)] Ferrous Sulfate [Iron (65 MG 325 mg PO HS 01/13/23 12/29/24 Elemental)] Lactulose 20 gm PO DAILY 01/13/23 12/29/24 Magnesium Oxide [Magox 400] 400 mg PO HS 01/13/23 12/29/24 Melatonin 3 mg PO HS 01/13/23 12/29/24 Brimonidine Tartrate [Alphagan P 1 drop BOTH EYES TID@0700,1300,1900 12/29/24 12/29/24 0.15% Ophth Soln] DULoxetine HCL [Cymbalta] 60 mg PO DAILY@0700 12/29/24 12/29/24 Divalproex Sprinkle [Depakote 125 mg PO BID@0700,1600 12/29/24 12/29/24 Sprinkle] Docusate [Colace] 100 mg PO BID 12/29/24 12/29/24 Gabapentin [Neurontin] 300 mg PO TID@0700,1300,1900 12/29/24 12/29/24 Icy Hot Advanced Relief 7.5% Patch 1 patch TRANSDERM DAILY@0700 12/29/24 12/29/24 Ipratropium-Albuterol Nebulize 3 ml INHALATION RT-Q4H PRN 12/29/24 12/29/24 [Duoneb 0.5 mg-3 mg/3 ml Soln] Ipratropium-Albuterol Nebulize 3 ml INHALATION RT-Q8H PRN 12/29/24 12/29/24 [Duoneb 0.5 mg-3 mg/3 ml Soln] Levothyroxine Sodium [Synthroid] 88 mcg PO DAILY@0500 12/29/24 12/29/24 Montelukast [Singulair] 10 mg PO HS@1900 12/29/24 12/29/24 Naloxone HCl 0.4 mg SQ DIRECTED PRN 12/29/24 12/29/24 Naloxone HCl 4 mg NASAL DIRECTED PRN 12/29/24 12/29/24 metFORMIN HCL [Glucophage] 500 mg PO BID@0700,1600 12/29/24 12/29/24 tea tree oiL [Tea Tree Oil] 1 applic TOPICAL HS 12/29/24 12/29/24 Previous Rx's Medication Instructions Recorded Acetaminophen Tab [Tylenol] 650 mg PO Q6HR PRN tab 01/09/25 DAPTOmycin [Cubicin] 400 mg IVPB Q24HR 14 Days #14 each 01/09/25 Furosemide [Lasix] 40 mg PO DAILY #0 01/09/25 Heparin Sodium,Porcine (1 ml) 5,000 unit SQ Q8HR each 01/09/25 [Heparin Sodium] INSULIN LISPRO (HumaLOG) [HumaLOG] 0 unit SQ ACHS each 01/09/25 Insulin Glargine (Lantus) [Lantus 20 unit SQ DAILY@0700 each 01/09/25 Vial] Nystatin 100,000 Unit/gm Powd 1 applic TOPICAL BID each 01/09/25 [Mycostatin Powder] Sodium Bicarbonate Tab 650 mg PO BID tab 01/09/25 cefTRIAXone [Rocephin] 2 gm IVPB Q24H 14 Days #14 each 01/09/25 oxyCODONE-APAP 10-325MG [Percocet 1 tab PO Q4H #6 tab 01/09/25 10-325 mg] Allergies Allergy/AdvReac Type Severity Reaction Status Date / Time No Known Allergies Allergy Verified 01/14/25 10:03 Review of Systems ROS Statement: Those systems with pertinent positive or pertinent negative responses have been documented in the HPI. ROS Other: All systems not noted in ROS Statement are negative. Past Medical History Past Medical History: Atrial Fibrillation, Heart Failure, Hyperlipidemia, Hypertension, Renal Disease, Syncope Additional Past Medical History / Comment(s): anemia, UTI, Hypothyroid, depression, dysphagia History of Any Multi-Drug Resistant Organisms: None Reported Date of last positivie culture/infection: 01/02/25 MDRO Source:: rt 1st toe Additional Past Surgical History / Comment(s): unknown Past Anesthesia/Blood Transfusion Reactions: No Reported Reaction Past Psychological History: No Psychological Hx Reported Smoking Status: Unknown if ever smoked Past Alcohol Use History: None Reported Past Drug Use History: None Reported - Past Family History Father History Unknown: Yes Mother History Unknown: Yes General Exam - General Exam Comments Initial Comments: PHYSICAL EXAM: General Impression: Arousable, malaised HEENT: Normocephalic atraumatic, extra-ocular movements intact, pupils equal and reactive to light bilaterally, mucous membranes moist. Cardiovascular: Heart regular rate and rhythm Chest: Diffuse lung crackles Abdomen: abdomen soft, non-tender, non-distended, no organomegaly Musculoskeletal: Pulses present and equal in all extremities, no peripheral edema Motor: no focal deficits noted Neurological: CN II-XII grossly intact, no focal motor or sensory deficits noted Skin: Erythematous bilateral lower extremities Limitations: no limitations Course Vital Signs 01/14/25 01/14/25 01/14/25 09:53 09:54 10:11 Temperature 98.4 F Pulse Rate 84 Respiratory 18 10 L Rate Blood Pressure 118/76 O2 Sat by Pulse 96 Oximetry Fraction of 40 Inspired Oxygen (FIO2) 01/14/25 01/14/25 10:51 11:02 Temperature Pulse Rate 86 Respiratory 17 Rate Blood Pressure 149/79 O2 Sat by Pulse 95 Oximetry Fraction of 32 Inspired Oxygen (FIO2) EKG Findings - EKG Comments: EKG Findings:: My EKG interpretation: Ventricular rate 84, sinus rhythm, MO 144, QRS 102, QTc 395. No MO prolongation, no QTC prolongation, no ST or T-wave changes noted. Overall, this EKG is unremarkable Medical Decision Making - Medical Decision Making Was pt. sent in by a medical professional or institution ([facility] Michel, STILL OPERATOR, urgent care, hospital, or half-way...) When possible be specific @ -No Did you speak to anyone other than the patient for history (EMS, parent, family, police, friend...)? What history was obtained from this source @ -EMS as described above Did you review nursing and triage notes (agree or disagree)? Why? @ -I reviewed and agree with nursing and triage notes Were old charts reviewed (outside hosp., previous admission, EMS record, old EKG, old radiological studies, urgent care reports/EKG's, half-way records)? Report findings @ -No old charts were reviewed Differential Diagnosis (chest pain, altered mental status, abdominal pain women, abdominal pain men, vaginal bleeding, musculoskeletal, weakness, fever, dyspnea, syncope, headache, dizziness, GI bleed, back pain, seizure, CVA, palpatations, mental health)? @ -Differential Altered Mental Status: Hypoglycemia, DKA, hypercapnia, ETOH, overdose, CO poisoning, trauma, myxedema coma, HTN encephalopathy, infection, encephalitis, psychosis, intercranial hemorrhage, hepatic encephalopathy, meningitis, CVA, this is not meant to be an all-inclusive list EKG interpreted by me (3pts min.). @ -See above X-rays interpreted by me (1pt min.). @ -Chest x-ray is nonacute CT interpreted by me (1pt min.). @ -CT brain shows no acute processes U/S interpreted by me (1pt. min.). @ -None done What testing was considered but not performed or refused? (CT, X-rays, U/S, labs)? Why? @ -None What meds were considered but not given or refused? Why? @ -None Was smoking cessation discussed for >3mins.? @ -No Were there social determinants of health that impacted care today? How? (Homelessness, low income, unemployed, alcoholism, drug addiction, transportation, low edu. Level, literacy, decrease access to med. care, correction, rehab)? @ -No Was there de-escalation of care discussed even if they declined (Discuss DNR or withdrawal of care, Hospice)? DNR status @ -No What co-morbidities impacted this encounter? (DM, HTN, Smoking, COPD, CAD, Cancer, CVA, ARF, Chemo, Hep., AIDS, mental health diagnosis, sleep apnea, morbid obesity)? @ -Recent antibiotic use Was patient admitted / discharged? Hospital course, mention meds given and route, prescriptions, significant lab abnormalities, going to OR and other pertinent info. @ -74-year-old male presents to the emergency department for altered mental status. Patient lethargic however arousable. EMS placed patient on BiPAP due to lung wet sounds. He was however not hypoxic or tachypneic. Patient however malaise at the bedside. Laboratory evaluation obtained. CBC within acceptable limits. Venous blood gas shows no hypercarbia. Metabolic panel shows sodium 128, elevated renal function with BUN of 114 and creatinine of 4.77. Ammonia level normal. Urinalysis shows UTI. Patient covered with antibiotics. Likely cause of altered mentation is uremia. Patient given fluids will be admitted case discussed with hospitalist for admission. Nephrology consulted. Did you discuss the management of the patient with other professionals (professionals i.e. , PA, STILL OPERATOR, lab, RT, psych nurse, social media assistant, labor trainer, teacher, ecological technical officer, disability case manager)? Give summary @ -See above Was critical care preformed (if so, how long)? @ -Yes, 33 minutes for unstable clinical presentation Undiagnosed new problem with uncertain prognosis? @ -No Drug Therapy requiring intensive monitoring for toxicity (Heparin, Nitro, Insulin, Cardizem)? @ -No Were any procedures done? @ -No Diagnosis/symptom? Acute, or Chronic, or Acute on Chronic? Uncomplicated (without systemic symptoms) or Complicated (systemic symptoms)? @ -Encephalopathy secondary to uremia, metabolic derangement, UTI Side effects of treatment? @ -No Exacerbation, Progression, or Severe Exacerbation? @ -No Poses a threat to life or bodily function? How? (Chest pain, [place], [place], pneumonia, PE, COPD, DKA, ARF, appy, cholecystitis, CVA, Diverticulitis, Homicidal, Suicidal, threat to staff... and all critical care pts) @ -yes - Lab Data Result diagrams: 01/14/25 10:01 01/14/25 10:01 Lab Results 01/14/25 01/14/25 01/14/25 Range/Units 10:01 10:01 10:01 WBC 13.47 H (4.50-10.00) 10*3/uL RBC 3.40 L (4.40-5.60) 10*6/uL Hgb 9.5 L (13.0-17.0) g/dL Hct 30.3 L (39.6-50.0) % MCV 89.1 (80.0-97.0) fL MCH 27.9 (27.0-32.0) pg MCHC 31.4 L (32.0-37.0) g/dL Plt Count 676 H (140-440) 10*3/uL MPV 9.5 (9.5-12.2) fL Immature Gran % (Auto) 0.7 % Neutrophils % 77.5 % Lymphocytes % 13.9 % Monocytes % 7.5 % Eosinophils % 0.1 % Basophils % 0.3 % Immature Gran # 0.09 H (0.00-0.04) 10*3/uL Neutrophils # 10.45 H (1.80-7.70) 10*3/uL Lymphocytes # 1.87 (0.90-5.00) 10*3/uL Monocytes # 1.01 H (0.20-1.00) 10*3/uL Eosinophils # 0.01 L (0.04-0.35) 10*3/uL Basophils # 0.04 (0.00-0.10) 10*3/uL PT 11.9 (10.0-12.5) sec INR 1.1 (<1.2) APTT 22.1 (22.0-30.0) sec VBG pH (7.31-7.41) VBG pCO2 (37-51) mmHg VBG HCO3 (24-28) mmol/L Sodium 128 L (137-145) mmol/L Potassium 5.8 H (3.5-5.1) mmol/L Chloride 92 L (98-107) mmol/L Carbon Dioxide 17 L (22-30) mmol/L Anion Gap 19 mmol/L BUN 114 H* (9-20) mg/dL Creatinine 4.77 H (0.66-1.25) mg/dL Est GFR (CKD-EPI)AfAm 13 (>60 ml/min/1.73 sqM) Est GFR (CKD-EPI)NonAf 11 (>60 ml/min/1.73 sqM) Glucose 127 H (74-99) mg/dL Plasma Lactic Acid Zafar (0.7-2.0) mmol/L Calcium 8.5 (8.4-10.2) mg/dL Magnesium 3.0 H (1.6-2.3) mg/dL Total Bilirubin 0.5 (0.2-1.3) mg/dL AST 20 (17-59) U/L ALT 20 (4-49) U/L Alkaline Phosphatase 144 H (38-126) U/L Ammonia (<30) umol/L Creatine Kinase (55-170) U/L Troponin I (0.000-0.034) ng/mL NT-Pro-B Natriuret Pep 2840 pg/mL Total Protein 8.3 H (6.3-8.2) g/dL Albumin 3.0 L (3.5-5.0) g/dL Urine Color Urine Appearance (Clear) Urine pH (5.0-8.0) Ur Specific B[place] (1.001-1.035) Urine Protein (Negative) Urine Glucose (UA) (Negative) Urine Ketones (Negative) Urine Blood (Negative) Urine Nitrite (Negative) Urine Bilirubin (Negative) Urine Urobilinogen (<2.0) mg/dL Ur Leukocyte Esterase (Negative) Urine RBC (0-5) /hpf Urine WBC (0-5) /hpf Urine WBC Clumps (None) /hpf Ur Squamous Epith Cells (0-4) /hpf Amorphous Sediment (None) /hpf Urine Bacteria (None) /hpf Urine Mucus (None) /hpf 01/14/25 01/14/25 01/14/25 Range/Units 10:01 10:01 10:01 WBC (4.50-10.00) 10*3/uL RBC (4.40-5.60) 10*6/uL Hgb (13.0-17.0) g/dL Hct (39.6-50.0) % MCV (80.0-97.0) fL MCH (27.0-32.0) pg MCHC (32.0-37.0) g/dL Plt Count (140-440) 10*3/uL MPV (9.5-12.2) fL Immature Gran % (Auto) % Neutrophils % % Lymphocytes % % Monocytes % % Eosinophils % % Basophils % % Immature Gran # (0.00-0.04) 10*3/uL Neutrophils # (1.80-7.70) 10*3/uL Lymphocytes # (0.90-5.00) 10*3/uL Monocytes # (0.20-1.00) 10*3/uL Eosinophils # (0.04-0.35) 10*3/uL Basophils # (0.00-0.10) 10*3/uL PT (10.0-12.5) sec INR (<1.2) APTT (22.0-30.0) sec VBG pH 7.32 (7.31-7.41) VBG pCO2 41 (37-51) mmHg VBG HCO3 21 L (24-28) mmol/L Sodium (137-145) mmol/L Potassium (3.5-5.1) mmol/L Chloride (98-107) mmol/L Carbon Dioxide (22-30) mmol/L Anion Gap mmol/L BUN (9-20) mg/dL Creatinine (0.66-1.25) mg/dL Est GFR (CKD-EPI)AfAm (>60 ml/min/1.73 sqM) Est GFR (CKD-EPI)NonAf (>60 ml/min/1.73 sqM) Glucose (74-99) mg/dL Plasma Lactic Acid Zafar 0.9 (0.7-2.0) mmol/L Calcium (8.4-10.2) mg/dL Magnesium (1.6-2.3) mg/dL Total Bilirubin (0.2-1.3) mg/dL AST (17-59) U/L ALT (4-49) U/L Alkaline Phosphatase (38-126) U/L Ammonia (<30) umol/L Creatine Kinase (55-170) U/L Troponin I 0.014 (0.000-0.034) ng/mL NT-Pro-B Natriuret Pep pg/mL Total Protein (6.3-8.2) g/dL Albumin (3.5-5.0) g/dL Urine Color Urine Appearance (Clear) Urine pH (5.0-8.0) Ur Specific [place] (1.001-1.035) Urine Protein (Negative) Urine Glucose (UA) (Negative) Urine Ketones (Negative) Urine Blood (Negative) Urine Nitrite (Negative) Urine Bilirubin (Negative) Urine Urobilinogen (<2.0) mg/dL Ur Leukocyte Esterase (Negative) Urine RBC (0-5) /hpf Urine WBC (0-5) /hpf Urine WBC Clumps (None) /hpf Ur Squamous Epith Cells (0-4) /hpf Amorphous Sediment (None) /hpf Urine Bacteria (None) /hpf Urine Mucus (None) /hpf 01/14/25 01/14/25 01/14/25 Range/Units 10:01 10:56 10:56 WBC (4.50-10.00) 10*3/uL RBC (4.40-5.60) 10*6/uL Hgb (13.0-17.0) g/dL Hct (39.6-50.0) % MCV (80.0-97.0) fL MCH (27.0-32.0) pg MCHC (32.0-37.0) g/dL Plt Count (140-440) 10*3/uL MPV (9.5-12.2) fL Immature Gran % (Auto) % Neutrophils % % Lymphocytes % % Monocytes % % Eosinophils % % Basophils % % Immature Gran # (0.00-0.04) 10*3/uL Neutrophils # (1.80-7.70) 10*3/uL Lymphocytes # (0.90-5.00) 10*3/uL Monocytes # (0.20-1.00) 10*3/uL Eosinophils # (0.04-0.35) 10*3/uL Basophils # (0.00-0.10) 10*3/uL PT (10.0-12.5) sec INR (<1.2) APTT (22.0-30.0) sec VBG pH (7.31-7.41) VBG pCO2 (37-51) mmHg VBG HCO3 (24-28) mmol/L Sodium (137-145) mmol/L Potassium (3.5-5.1) mmol/L Chloride (98-107) mmol/L Carbon Dioxide (22-30) mmol/L Anion Gap mmol/L BUN (9-20) mg/dL Creatinine (0.66-1.25) mg/dL Est GFR (CKD-EPI)AfAm (>60 ml/min/1.73 sqM) Est GFR (CKD-EPI)NonAf (>60 ml/min/1.73 sqM) Glucose (74-99) mg/dL Plasma Lactic Acid Zafar (0.7-2.0) mmol/L Calcium (8.4-10.2) mg/dL Magnesium (1.6-2.3) mg/dL Total Bilirubin (0.2-1.3) mg/dL AST (17-59) U/L ALT (4-49) U/L Alkaline Phosphatase (38-126) U/L Ammonia 21 (<30) umol/L Creatine Kinase 130 (55-170) U/L Troponin I (0.000-0.034) ng/mL NT-Pro-B Natriuret Pep pg/mL Total Protein (6.3-8.2) g/dL Albumin (3.5-5.0) g/dL Urine Color Yellow Urine Appearance Turbid (Clear) Urine pH 5.5 (5.0-8.0) Ur Specific [place] 1.027 (1.001-1.035) Urine Protein 3+ H (Negative) Urine Glucose (UA) Negative (Negative) Urine Ketones Negative (Negative) Urine Blood Large H (Negative) Urine Nitrite Negative (Negative) Urine Bilirubin Negative (Negative) Urine Urobilinogen <2.0 (<2.0) mg/dL Ur Leukocyte Esterase Large H (Negative) Urine RBC >182 H (0-5) /hpf Urine WBC >182 H (0-5) /hpf Urine WBC Clumps Many H (None) /hpf Ur Squamous Epith Cells 3 (0-4) /hpf Amorphous Sediment Occasional H (None) /hpf Urine Bacteria Occasional H (None) /hpf Urine Mucus Occasional H (None) /hpf Disposition Clinical Impression: Encephalopathy, SIMRAN (acute kidney injury), UTI (urinary tract infection) Disposition: ADMITTED IP TO THIS [facility] Condition: Serious Referrals: China Kaur DO [Primary Care Provider] - 1-2 days Decision Time: 12:58
[2025-01-14 10:07] LABS: Basophils # (A) 0.04 10*3/uL (0.00-0.10); Basophils % (A) 0.3 %; Eosinophils # (A) 0.01 10*3/uL (0.04-0.35); Eosinophils % (A) 0.1 %; HCT 30.3 % (39.6-50.0); HGB 9.5 g/dL (13.0-17.0); Lymphocytes # (A) 1.87 10*3/uL (0.90-5.00); Lymphocytes % (A) 13.9 %; MCH 27.9 pg (27.0-32.0); MCHC 31.4 g/dL (32.0-37.0); MCV 89.1 fL (80.0-97.0); Mean Platelet Volume 9.5 fL (9.5-12.2); Monocytes # (A) 1.01 10*3/uL (0.20-1.00); Monocytes % (A) 7.5 %; Neutrophils # (A) 10.45 10*3/uL (1.80-7.70); Neutrophils % (A) 77.5 %; Platelet Count 676 10*3/uL (140-440); RDW 16.5 % (11.5-14.5); VBG PH 7.32 (7.31-7.41); WBC 13.47 10*3/uL (4.50-10.00)
[2025-01-14] MEDS: NALOXONE 0.4 MG/ML 1 ML VIAL IVP STA (10:11)
[2025-01-14] MEDS: LACTATED RINGERS 500 ML IV ONE (10:16)
[2025-01-14 10:20] LABS: ALT 20 U/L (4-49); AST 20 U/L (17-59); African American GFR (CKD) 13 (>60 ml/min/1.73 sqM); Alkaline Phosphatase 144 U/L (38-126); Anion Gap 19 mmol/L; Calcium 8.5 mg/dL (8.4-10.2); Carbon Dioxide 17 mmol/L (22-30); Chloride 92 mmol/L (98-107); Glucose 127 mg/dL (74-99); Non-African American GFR(CKD) 11 (>60 ml/min/1.73 sqM); Potassium 5.8 mmol/L (3.5-5.1); Sodium 128 mmol/L (137-145); Total Bilirubin 0.5 mg/dL (0.2-1.3); Total Protein 8.3 g/dL (6.3-8.2)
[2025-01-14 10:21] LABS: Partial Thromboplastin Time 22.1 sec (22.0-30.0)
[2025-01-14 10:23] LABS: INR 1.1 (<1.2); Prothrombin Time 11.9 sec (10.0-12.5)
[2025-01-14 10:29] LABS: NT-Pro-B-Type Natriuretic Pept 2840 pg/mL
[2025-01-14 10:32] LABS: Blood Urea Nitrogen 114 mg/dL (9-20)
--- NOTE | 2025-01-14 11:02 | CT ---
EXAMINATION TYPE: CT brain wo con DATE OF EXAM: 01/14/2025 COMPARISON: 01/05/2025 CLINICAL INDICATION: Male, 74 years old with history of ams; PHH, AMS CT DLP: 1186.4 mGycm Automated exposure control for dose reduction was used. FINDINGS: There is a large craniotomy defect involving the left frontal temporal bone. There is a large stable area of encephalomalacia involving the right frontal cortex and subcortical w terra matter. There is stable encephalomalacia involving the anterior left temporal cortex. There is a small stable area of encephalomalacia involving the right occipital lobe. The ventricles, basal cisterns and sulci over convexities are within normal limits and there is no ma ss effect or shift of midline structures. There is no acute intra or extra-axial hemorrhage. The posterior fossa is grossly normal. Intraorbital contents appear normal symmetric. Visualized paranasal sinuses and mastoid air cells are well aerated. IMPRESSION: 1. NO ACUTE BLEED OR MASS EFFECT. 2. MULTIPLE REMOTE INFARCTS DESCRIBED ABOVE. 3. LARGE LEFT CRANIOTOMY DEFECT. [facility], , 01/14/2025 11:00 AM
[2025-01-14 11:47] LABS: Amorphous Sediment,Urine Occasional /hpf; Appearance,Urine Turbid (Clear); Bacteria,Urine Occasional /hpf; Bilirubin,Urine Negative (Negative); Blood,Urine Large (Negative); Color,Urine Yellow; Glucose,Urine (UA) Negative (Negative); Ketones,Urine Negative (Negative); Leukocyte Esterase,Urine Large (Negative); Mucus,Urine Occasional /hpf; Nitrite,Urine Negative (Negative); PH, Urine 5.5 (5.0-8.0); Protein,Urine 3+ (Negative); RBC,Urine >182 /hpf (0-5); Specific Gravity,Urine 1.027 (1.001-1.035); Squamous Epithelial Cell,Urine 3 /hpf (0-4); Urobilinogen,Urine <2.0 mg/dL (<2.0); WBC,Urine >182 /hpf (0-5)
[2025-01-14] MEDS ORDERED: NALOXONE 0.4 MG/ML 1 ML VIAL IV PRN (12:51)
--- NOTE | 2025-01-14 13:02 | XR ---
EXAMINATION TYPE: XR chest 1V portable DATE OF EXAM: 01/14/2025 COMPARISON: 01/13/2023 CLINICAL INDICATION: Male, 74 years old with history of lung ronchi; TECHNIQUE: Single frontal view of the chest is obtained. FINDINGS: There is no focal air space opacity, pleural effusion, or pneumothorax seen. The cardiac silhouette size is within normal limits. The osseous structures are intact. IMPRESSION: No acute process. [facility], , 01/14/2025 1:00 PM
[2025-01-14] MEDS: SODIUM CHLORIDE 0.9% 1,000 ML IV SCH (13:28)
--- NOTE | 2025-01-14 14:00 | P.NPCON ---
History of Present Illness - Reason for Consult Consult date: 01/14/25 - Chief Complaint AMS - History of Present Illness Patient is a 74 yo male presenting from long-term due to AMS. Recently hospitalized nd discharged earlier this week to long-term after being treated for sepsis with UTI and SIMRAN. Patient altered and unable ot provide history which was obtained from chart. He was discharged on 2 weeks of antibiotics including rocephin and daptomycin for UTI and cellulitis. Noted to have altered mentation and brought to ED for evaluation today. Noted to be in renal failure currently on Bipap seen in ED. General Impression: Arousable, confused Cardiovascular: Heart regular rate and rhythm Chest: Diffuse lung crackles Abdomen: abdomen soft, non-distended, no organomegaly Musculoskeletal: Pulses present and equal in all extremities, dependent LE will pheral edema Skin: Erythematous bilateral lower extremities Review of Systems ROS unobtainable: due to mental status Past Medical History Past Medical History: Atrial Fibrillation, Heart Failure, Hyperlipidemia, Hypertension, Renal Disease, Syncope Additional Past Medical History / Comment(s): anemia, UTI, Hypothyroid, depression, dysphagia History of Any Multi-Drug Resistant Organisms: None Reported Date of last positivie culture/infection: 01/02/25 MDRO Source:: rt 1st toe Additional Past Surgical History / Comment(s): unknown Past Anesthesia/Blood Transfusion Reactions: No Reported Reaction Past Psychological History: No Psychological Hx Reported Smoking Status: Unknown if ever smoked Past Alcohol Use History: None Reported Past Drug Use History: None Reported - Past Family History Father History Unknown: Yes Mother History Unknown: Yes Medications and Allergies Home Medications Medication Instructions Recorded Confirmed Type Aspirin [[place] Aspirin EC] 81 mg PO HS 12/24/18 01/14/25 History Atorvastatin [Lipitor] 20 mg PO HS@199912/24/18 01/14/25 History Cholecalciferol [Vitamin D3 (25 75 mcg PO DAILY 01/13/23 01/14/25 History Mcg = 1000 Iu)] Ferrous Sulfate [Iron (65 MG 325 mg PO HS 01/13/23 01/14/25 History Elemental)] Lactulose 20 gm PO DAILY 01/13/23 01/14/25 History Magnesium Oxide [Magox 400] 400 mg PO HS 01/13/23 01/14/25 History Melatonin 3 mg PO HS 01/13/23 01/14/25 History DULoxetine HCL [Cymbalta] 60 mg PO DAILY@0700 12/29/24 01/14/25 History Divalproex Sprinkle [Depakote 125 mg PO BID@0700,1600 12/29/24 01/14/25 History Sprinkle] Docusate [Colace] 100 mg PO BID 12/29/24 01/14/25 History Gabapentin [Neurontin] 300 mg PO TID@0700,1300,1900 12/29/24 01/14/25 History Icy Hot Advanced Relief 7.5% Patch 1 patch TRANSDERM DAILY@0700 12/29/24 01/14/25 History Ipratropium-Albuterol Nebulize 3 ml INHALATION RT-Q4H PRN 12/29/24 01/14/25 History [Duoneb 0.5 mg-3 mg/3 ml Soln] Levothyroxine Sodium [Synthroid] 88 mcg PO DAILY@0500 12/29/24 01/14/25 History Montelukast [Singulair] 10 mg PO HS@1900 12/29/24 01/14/25 History Naloxone HCl 0.4 mg SQ DIRECTED PRN 12/29/24 01/14/25 History Naloxone HCl 4 mg NASAL DIRECTED PRN 12/29/24 01/14/25 History Furosemide [Lasix] 40 mg PO DAILY #0 01/09/25 01/14/25 Rx Nystatin 100,000 Unit/gm Powd 1 applic TOPICAL BID each 01/09/25 01/14/25 Rx [Mycostatin Powder] Sodium Bicarbonate Tab 650 mg PO BID tab 01/09/25 01/14/25 Rx cefTRIAXone [Rocephin] 2 gm IVPB Q24H 14 Days #14 each 01/09/25 01/14/25 Rx oxyCODONE-APAP 10-325MG [Percocet 1 tab PO Q4H #6 tab 01/09/25 01/14/25 Rx 10-325 mg] 0.9 % Sodium Chloride [Sodium 10 ml IV QID 01/14/25 01/14/25 History Chloride Flush] Acetaminophen [Tylenol Arthritis] 650 mg PO Q6H PRN 01/14/25 01/14/25 History Ascorbic Acid [Vitamin C] 500 mg PO DAILY 01/14/25 01/14/25 History Brimonidine Tartrate [Alphagan P 1 drops BOTH EYES BID 01/14/25 01/14/25 History 0.2% Ophth Soln] DAPTOmycin [Cubicin] 400 mg IVPB DAILY@1300 01/14/25 01/14/25 History Fluticasone Propion/Salmeterol 1 puff INHALATION RT-BID 01/14/25 01/14/25 History [Fluticasone-Salmeterol 250-50] Heparin Sod (Pork) Lock Flush 3 ml IV BID@1300,2100 01/14/25 01/14/25 History Intravenous Solution 10unit/Ml Heparin Sodium,Porcine (1 ml) 5,000 unit SQ Q8H 01/14/25 01/14/25 History [Heparin Sodium] INSULIN LISPRO (HumaLOG) [HumaLOG] See Protocol SQ ACHS 01/14/25 01/14/25 History Insulin Glargine,Hum.rec.anlog 20 units SQ DAILY@0600 01/14/25 01/14/25 History [Lantus Solostar Pen] metFORMIN HCL [Glucophage] 500 mg PO BID@0700,1600 01/14/25 01/14/25 History Allergies Allergy/AdvReac Type Severity Reaction Status Date / Time No Known Allergies Allergy Verified 01/14/25 13:12 Physical Exam Vitals: Vital Signs Temp Pulse Resp BP Pulse Ox FiO2 01/14/25 11:02 86 17 149/79 95 01/14/25 10:51 32 01/14/25 10:11 10 L 01/14/25 09:54 40 01/14/25 09:53 98.4 F 84 18 118/76 96 Intake and Output 01/13/25 01/14/25 01/14/25 22:59 06:59 14:59 Other: Weight 117.027 kg Results - Lab Results Most recent lab results Calcium 8.5 mg/dL (8.4-10.2) 01/14/25 10:01 Magnesium 3.0 mg/dL (1.6-2.3) H 01/14/25 10:01 01/14/25 10:01 01/14/25 10:01 Assessment and Plan Assessment: 1. Non-oliguric SIMRAN 2/2 ATN likely related to sepsis. Rule out rhabdomyolysis given chronic Daptomycin use. Baseline creatinine 1.2-1.4 mg/dL, Presented with creatinine 4.7. Has [place] with noted urine output. Recent US no hydronephrosis. UA concernin for infection. 2. Hyperkalemia related to SIMRAN 3. Sepsis related to UTI and cellulitis 4. Metabolic acidosis related to SIMRAN 5. Hyponatremia suspect hypovolemia sodium 128 6. Encephalopathy related to infection 7. CKD Stage 3 with baseline creatinine 1.2-1.4 mg/dL Plan: Received IVF bolus in ED Check CK level Strict I/O's, daily BMP Pending cultures Treat potassium medically for now If mentation improves will start [place] Currently on Bipap, recommend CXR
[2025-01-15 06:36] LABS: Glucose,Whole Blood 120 mg/dL (70-110)
--- NOTE | 2025-01-15 07:45 | P.CONS ---
History of Present Illness - Reason for Consult Consult date: 01/14/25 UTI Requesting physician: Timur Goldsmith - Chief Complaint Mental status changes x 1 day - History of Present Illness Patient is a 74-year-old male with a past medical history significant for hypertension hyperlipidemia heart failure atrial fibrillation recent admitted to this facility with extensive left lower extremity cellulitis patient local culture positive for MRSA Proteus along with Enterococcus faecalis for which the patient got midline and was advised a 10-day course of IV Rocephin and daptomycin as the patient was currently receiving at the alf patient has not been brought back to the hospital concerning for mental status changes on arrival to the EMS patient was placed on a noninvasive ventilation he was then found to be hypoxic or tachypneic and the patient was subsequently brought into the ER for further evaluation this information available on the ER triage with the patient unable to provide any history on presentation to the hospital patient was afebrile and no fever have been recorded subsequently patient was nontachycardic or hypotensive currently on a BiPAP with a 30% FiO2 he did have a white count of 13.47 with a left shift noted to have significant elevated BUN of 114 creatinine is 4.77 potassium is 5.8 UA has been positive patient did have CT of the brain that was negative for any bleed chest x-ray no acute process patient was admitted to the hospital infectious disease was consulted for UTI most information has been obtained from review the chart and talking to the nursing staff Review of Systems Positive points has been mentioned in HPI complete review could not be obtained because of his underlying mental status Past Medical History Past Medical History: Atrial Fibrillation, Heart Failure, Hyperlipidemia, Hypertension, Renal Disease, Syncope Additional Past Medical History / Comment(s): anemia, UTI, Hypothyroid, depression, dysphagia History of Any Multi-Drug Resistant Organisms: None Reported Year Discovered:: 01/02/25 MDRO Source:: rt 1st toe Additional Past Surgical History / Comment(s): unknown Past Anesthesia/Blood Transfusion Reactions: No Reported Reaction Past Psychological History: No Psychological Hx Reported Smoking Status: Unknown if ever smoked Past Alcohol Use History: None Reported Past Drug Use History: None Reported - Past Family History Father History Unknown: Yes Mother History Unknown: Yes Medications and Allergies Home Medications Medication Instructions Recorded Confirmed Type Aspirin [[place] Aspirin EC] 81 mg PO HS 12/24/18 01/14/25 History Atorvastatin [Lipitor] 20 mg PO HS@199912/24/18 01/14/25 History Cholecalciferol [Vitamin D3 (25 75 mcg PO DAILY 01/13/23 01/14/25 History Mcg = 1000 Iu)] Ferrous Sulfate [Iron (65 MG 325 mg PO HS 01/13/23 01/14/25 History Elemental)] Lactulose 20 gm PO DAILY 01/13/23 01/14/25 History Magnesium Oxide [Magox 400] 400 mg PO HS 01/13/23 01/14/25 History Melatonin 3 mg PO HS 01/13/23 01/14/25 History DULoxetine HCL [Cymbalta] 60 mg PO DAILY@0700 12/29/24 01/14/25 History Divalproex Sprinkle [Depakote 125 mg PO BID@0700,1600 12/29/24 01/14/25 History Sprinkle] Docusate [Colace] 100 mg PO BID 12/29/24 01/14/25 History Gabapentin [Neurontin] 300 mg PO TID@0700,1300,1900 12/29/24 01/14/25 History Icy Hot Advanced Relief 7.5% Patch 1 patch TRANSDERM DAILY@0700 12/29/24 01/14/25 History Ipratropium-Albuterol Nebulize 3 ml INHALATION RT-Q4H PRN 12/29/24 01/14/25 History [Duoneb 0.5 mg-3 mg/3 ml Soln] Levothyroxine Sodium [Synthroid] 88 mcg PO DAILY@0500 12/29/24 01/14/25 History Montelukast [Singulair] 10 mg PO HS@19012/29/24 01/14/25 History Naloxone HCl 0.4 mg SQ DIRECTED PRN 12/29/24 01/14/25 History Naloxone HCl 4 mg NASAL DIRECTED PRN 12/29/24 01/14/25 History Furosemide [Lasix] 40 mg PO DAILY #0 01/09/25 01/14/25 Rx Nystatin 100,000 Unit/gm Powd 1 applic TOPICAL BID each 01/09/25 01/14/25 Rx [Mycostatin Powder] Sodium Bicarbonate Tab 650 mg PO BID tab 01/09/25 01/14/25 Rx cefTRIAXone [Rocephin] 2 gm IVPB Q24H 14 Days #14 each 01/09/25 01/14/25 Rx oxyCODONE-APAP 10-325MG [Percocet 1 tab PO Q4H #6 tab 01/09/25 01/14/25 Rx 10-325 mg] 0.9 % Sodium Chloride [Sodium 10 ml IV QID 01/14/25 01/14/25 History Chloride Flush] Acetaminophen [Tylenol Arthritis] 650 mg PO Q6H PRN 01/14/25 01/14/25 History Ascorbic Acid [Vitamin C] 500 mg PO DAILY 01/14/25 01/14/25 History Brimonidine Tartrate [Alphagan P 1 drops BOTH EYES BID 01/14/25 01/14/25 History 0.2% Ophth Soln] DAPTOmycin [Cubicin] 400 mg IVPB DAILY@1300 01/14/25 01/14/25 History Fluticasone Propion/Salmeterol 1 puff INHALATION RT-BID 01/14/25 01/14/25 History [Fluticasone-Salmeterol 250-50] Heparin Sod (Pork) Lock Flush 3 ml IV BID@1300,2100 01/14/25 01/14/25 History Intravenous Solution 10unit/Ml Heparin Sodium,Porcine (1 ml) 5,000 unit SQ Q8H 01/14/25 01/14/25 History [Heparin Sodium] INSULIN LISPRO (HumaLOG) [HumaLOG] See Protocol SQ ACHS 01/14/25 01/14/25 History Insulin Glargine,Hum.rec.anlog 20 units SQ DAILY@0600 01/14/25 01/14/25 History [Lantus Solostar Pen] metFORMIN HCL [Glucophage] 500 mg PO BID@0700,1600 01/14/25 01/14/25 History Allergies Allergy/AdvReac Type Severity Reaction Status Date / Time No Known Allergies Allergy Verified 01/14/25 13:12 Physical Exam Vitals: Vital Signs Temp Pulse Resp BP Pulse Ox FiO2 01/14/25 13:53 87 16 128/78 97 01/14/25 11:02 86 17 149/79 95 01/14/25 10:51 32 01/14/25 10:11 10 L 01/14/25 09:54 40 01/14/25 09:53 98.4 F 84 18 118/76 96 Intake and Output 01/13/25 01/14/25 01/14/25 22:59 06:59 14:59 Other: Weight 117.027 kg GENERAL DESCRIPTION: Elderly male lying in bed, no distress. No tachypnea or accessory muscle of respiration use. HEENT: Shows Pallor , no scleral icterus. Oral mucous membrane is dry. NECK: Trachea central, no thyromegaly. LUNGS: Unlabored breathing. Coarse breath sounds bilaterally. HEART: S1, S2, regular rate and rhythm. No loud murmur ABDOMEN: Soft, no tenderness , guarding or rigidity, no organomegaly EXTREMITIES: Left lower extremity is currently dressed no drainage minimal erythema SKIN: No rash, no masses palpable. NEUROLOGICAL: The patient is lethargic orientation could not be determined Results CBC & Chem 7: 01/15/25 06:22 01/15/25 12:58 Labs: Abnormal Lab Results - Last 24 Hours (Table) 01/14/25 01/14/25 01/14/25 Range/Units 10:01 10:01 10:01 WBC 13.47 H (4.50-10.00) 10*3/uL RBC 3.40 L (4.40-5.60) 10*6/uL Hgb 9.5 L (13.0-17.0) g/dL Hct 30.3 L (39.6-50.0) % MCHC 31.4 L (32.0-37.0) g/dL Plt Count 676 H (140-440) 10*3/uL Immature Gran # 0.09 H (0.00-0.04) 10*3/uL Neutrophils # 10.45 H (1.80-7.70) 10*3/uL Monocytes # 1.01 H (0.20-1.00) 10*3/uL Eosinophils # 0.01 L (0.04-0.35) 10*3/uL VBG HCO3 21 L (24-28) mmol/L Sodium 128 L (137-145) mmol/L Potassium 5.8 H (3.5-5.1) mmol/L Chloride 92 L (98-107) mmol/L Carbon Dioxide 17 L (22-30) mmol/L BUN 114 H* (9-20) mg/dL Creatinine 4.77 H (0.66-1.25) mg/dL Glucose 127 H (74-99) mg/dL Magnesium 3.0 H (1.6-2.3) mg/dL Alkaline Phosphatase 144 H (38-126) U/L Total Protein 8.3 H (6.3-8.2) g/dL Albumin 3.0 L (3.5-5.0) g/dL Urine Protein (Negative) Urine Blood (Negative) Ur Leukocyte Esterase (Negative) Urine RBC (0-5) /hpf Urine WBC (0-5) /hpf Urine WBC Clumps (None) /hpf Amorphous Sediment (None) /hpf Urine Bacteria (None) /hpf Urine Mucus (None) /hpf 01/14/25 Range/Units 10:56 WBC (4.50-10.00) 10*3/uL RBC (4.40-5.60) 10*6/uL Hgb (13.0-17.0) g/dL Hct (39.6-50.0) % MCHC (32.0-37.0) g/dL Plt Count (140-440) 10*3/uL Immature Gran # (0.00-0.04) 10*3/uL Neutrophils # (1.80-7.70) 10*3/uL Monocytes # (0.20-1.00) 10*3/uL Eosinophils # (0.04-0.35) 10*3/uL VBG HCO3 (24-28) mmol/L Sodium (137-145) mmol/L Potassium (3.5-5.1) mmol/L Chloride (98-107) mmol/L Carbon Dioxide (22-30) mmol/L BUN (9-20) mg/dL Creatinine (0.66-1.25) mg/dL Glucose (74-99) mg/dL Magnesium (1.6-2.3) mg/dL Alkaline Phosphatase (38-126) U/L Total Protein (6.3-8.2) g/dL Albumin (3.5-5.0) g/dL Urine Protein 3+ H (Negative) Urine Blood Large H (Negative) Ur Leukocyte Esterase Large H (Negative) Urine RBC >182 H (0-5) /hpf Urine WBC >182 H (0-5) /hpf Urine WBC Clumps Many H (None) /hpf Amorphous Sediment Occasional H (None) /hpf Urine Bacteria Occasional H (None) /hpf Urine Mucus Occasional H (None) /hpf Assessment and Plan (1) Encephalopathy Current Visit: Yes Status: Acute Code(s): G93.40 - ENCEPHALOPATHY, UNSPECIFIED SNOMED Code(s): 75541077 (2) UTI (urinary tract infection) Current Visit: Yes Status: Acute Code(s): N39.0 - URINARY TRACT INFECTION, SITE NOT SPECIFIED SNOMED Code(s): 56711084 (3) Cellulitis of left leg Current Visit: No Status: Acute Code(s): L03.116 - CELLULITIS OF LEFT LOWER LIMB SNOMED Code(s): 98653719786598156 Plan: 1patient presented to hospital with mental status changes lethargy which is likely multifactorial in this patient noticed to have significant worsening of his kidney function and this patient was getting treatment for his left lower extremity wound and cellulitis which has shown some improvement but not complete resolution with recent culture positive for Proteus and MRSA 2-patient also has a positive UA but hard to get any symptom to see if any component of symptomatic UTI 3-for now we will treat the patient with the daptomycin Rocephin while waiting for the workup to be completed We will follow on clinical condition and cultures to further adjust medication if needed Thank you for this consultation we will follow the patient along with you Dictation was produced using [employer] dictation software. please excuse any grammatical, word or spelling errors. Time with Patient: Greater than 30
[2025-01-15 08:11] LABS: ALT 17 U/L (4-49); AST 23 U/L (17-59); African American GFR (CKD) 12 (>60 ml/min/1.73 sqM); Albumin 2.8 g/dL (3.5-5.0); Alkaline Phosphatase 136 U/L (38-126); Anion Gap 18 mmol/L; Calcium 8.5 mg/dL (8.4-10.2); Carbon Dioxide 16 mmol/L (22-30); Chloride 95 mmol/L (98-107); Glucose 83 mg/dL (74-99); Non-African American GFR(CKD) 10 (>60 ml/min/1.73 sqM); Sodium 129 mmol/L (137-145); Total Bilirubin 0.5 mg/dL (0.2-1.3); Total Protein 7.9 g/dL (6.3-8.2)
[2025-01-15] MEDS ORDERED: NON FORMULARY DRUG (Naloxone Hcl [Naloxone Hcl] 4 MG Spray) NASAL PRN (08:12)
[2025-01-15] MEDS ORDERED: NON FORMULARY DRUG (Acetaminophen [Tylenol Arthritis] 650 MG Tablet) PO PRN (08:12)
[2025-01-15] MEDS ORDERED: NON FORMULARY DRUG (Naloxone Hcl [Naloxone Hcl] 0.4 MG/ML Cartridge) SQ PRN (08:12)
[2025-01-15 08:44] LABS: Basophils # (A) 0.01 10*3/uL (0.00-0.10); Basophils % (A) 0.1 %; Eosinophils # (A) 0.02 10*3/uL (0.04-0.35); Eosinophils % (A) 0.2 %; HCT 32.7 % (39.6-50.0); HGB 10.2 g/dL (13.0-17.0); Lymphocytes # (A) 1.65 10*3/uL (0.90-5.00); Lymphocytes % (A) 13.9 %; MCH 28.7 pg (27.0-32.0); MCHC 31.2 g/dL (32.0-37.0); MCV 91.9 fL (80.0-97.0); Mean Platelet Volume 9.5 fL (9.5-12.2); Monocytes # (A) 1.26 10*3/uL (0.20-1.00); Monocytes % (A) 10.7 %; Neutrophils # (A) 8.81 10*3/uL (1.80-7.70); Neutrophils % (A) 74.4 %; Platelet Count 624 10*3/uL (140-440); RBC 3.56 10*6/uL (4.40-5.60); RDW 16.8 % (11.5-14.5); WBC 11.83 10*3/uL (4.50-10.00)
[2025-01-15 09:24] LABS: Blood Urea Nitrogen 117 mg/dL (9-20); Potassium 6.1 mmol/L (3.5-5.1)
[2025-01-15] MEDS: HEPARIN SODIUM,PORCINE 5,000 UNIT/ML 1 ML VIAL SQ SCH (09:35)
[2025-01-15] MEDS: BRIMONIDINE TARTRATE 0.2% DROPS 5 ML BTL BOTH EYES SCH (09:38)
[2025-01-15] MEDS: ASCORBIC ACID 500 MG TAB PO SCH (09:45)
[2025-01-15] MEDS: CHOLECALCIFEROL 25 MCG (1000 IU) TABLET PO SCH (09:45)
[2025-01-15] MEDS: DOCUSATE 100 MG CAP PO SCH (09:45)
[2025-01-15] MEDS: LACTULOSE 20 GM/30 ML CUP PO SCH (09:45)
[2025-01-15] MEDS: SODIUM BICARBONATE TAB 650 MG TAB PO SCH (09:45)
--- NOTE | 2025-01-15 10:25 | P.PN ---
Subjective Patient is seen in follow-up for acute kidney injury on chronic kidney disease. Renal function worse with creatinine 5.08 today. Potassium 6.1 this morning. Has Astorga catheter. Urine output 200 cc so far this morning in the last 4 hours. Remains acidotic with bicarb level of 16 today. On BiPAP. Poor historian. Vital signs are stable. General: No acute distress. HEENT: On BiPAP. LUNGS: No audible rhonchi or wheezes. HEART: Rate and Rhythm are regular. ABDOMEN: No distention. EXTREMITITES: Chronic changes noted. Trace edema. Wrapped. Objective - Vital Signs Vital signs: Vital Signs Temp 97.7 F 01/15/25 03:09 Pulse 75 01/15/25 03:09 Resp 15 01/15/25 03:09 BP 155/75 01/15/25 03:09 Pulse Ox 99 01/15/25 03:09 FiO2 30 01/15/25 07:38 Intake & Output 01/14/25 01/15/25 01/15/25 18:59 06:59 18:59 Output Total 200 200 Balance -200 -200 Weight 117.027 kg 116 kg Output: Urine 200 200 Other: Voiding Method Indwelling Catheter # Voids 0 - Labs CBC & Chem 7: 01/15/25 06:22 01/15/25 06:22 Labs: Abnormal Lab Results - Last 24 Hours (Table) 01/14/25 01/14/25 01/15/25 Range/Units 10:01 10:56 06:22 WBC (4.50-10.00) 10*3/uL RBC (4.40-5.60) 10*6/uL Hgb (13.0-17.0) g/dL Hct (39.6-50.0) % MCHC (32.0-37.0) g/dL Plt Count (140-440) 10*3/uL Immature Gran # (0.00-0.04) 10*3/uL Neutrophils # (1.80-7.70) 10*3/uL Monocytes # (0.20-1.00) 10*3/uL Eosinophils # (0.04-0.35) 10*3/uL Sodium 128 L 129 L (137-145) mmol/L Potassium 5.8 H 6.1 H* (3.5-5.1) mmol/L Chloride 92 L 95 L (98-107) mmol/L Carbon Dioxide 17 L 16 L (22-30) mmol/L BUN 114 H* 117 H* (9-20) mg/dL Creatinine 4.77 H 5.08 H (0.66-1.25) mg/dL Glucose 127 H (74-99) mg/dL POC Glucose (mg/dL) (70-110) mg/dL Magnesium 3.0 H (1.6-2.3) mg/dL Alkaline Phosphatase 144 H 136 H (38-126) U/L Total Protein 8.3 H (6.3-8.2) g/dL Albumin 3.0 L 2.8 L (3.5-5.0) g/dL Urine Protein 3+ H (Negative) Urine Blood Large H (Negative) Ur Leukocyte Esterase Large H (Negative) Urine RBC >182 H (0-5) /hpf Urine WBC >182 H (0-5) /hpf Urine WBC Clumps Many H (None) /hpf Amorphous Sediment Occasional H (None) /hpf Urine Bacteria Occasional H (None) /hpf Urine Mucus Occasional H (None) /hpf 01/15/25 01/15/25 Range/Units 06:22 06:35 WBC 11.83 H (4.50-10.00) 10*3/uL RBC 3.56 L (4.40-5.60) 10*6/uL Hgb 10.2 L (13.0-17.0) g/dL Hct 32.7 L (39.6-50.0) % MCHC 31.2 L (32.0-37.0) g/dL Plt Count 624 H (140-440) 10*3/uL Immature Gran # 0.08 H (0.00-0.04) 10*3/uL Neutrophils # 8.81 H (1.80-7.70) 10*3/uL Monocytes # 1.26 H (0.20-1.00) 10*3/uL Eosinophils # 0.02 L (0.04-0.35) 10*3/uL Sodium (137-145) mmol/L Potassium (3.5-5.1) mmol/L Chloride (98-107) mmol/L Carbon Dioxide (22-30) mmol/L BUN (9-20) mg/dL Creatinine (0.66-1.25) mg/dL Glucose (74-99) mg/dL POC Glucose (mg/dL) 120 H (70-110) mg/dL Magnesium (1.6-2.3) mg/dL Alkaline Phosphatase (38-126) U/L Total Protein (6.3-8.2) g/dL Albumin (3.5-5.0) g/dL Urine Protein (Negative) Urine Blood (Negative) Ur Leukocyte Esterase (Negative) Urine RBC (0-5) /hpf Urine WBC (0-5) /hpf Urine WBC Clumps (None) /hpf Amorphous Sediment (None) /hpf Urine Bacteria (None) /hpf Urine Mucus (None) /hpf Assessment and Plan Plan: Assessment: 1. Acute kidney injury secondary to ATN secondary to severe sepsis. Creatinine 5.08 today. Kidney ultrasound from December 2024 showed no evidence of hydronephrosis. 2. Chronic kidney disease stage IIIa with baseline creatinine 1.2-1.4. 3. Chronic diastolic CHF and moderate aortic stenosis. 4. Hyperkalemia secondary to acute kidney injury and acidosis. 5. Metabolic acidosis secondary to acute kidney injury and IV fluids. Also on metformin. 6. Hypovolemic hyponatremia. 7. Severe sepsis secondary to UTI. Also had recent cellulitis. On antibiotics. Plan: Change IV fluids to bicarb drip. 1 g IV calcium gluconate, 10 units IV regular insulin with an amp of D50, 2 amp sodium bicarb IV push now. Unable to take Lokelma. Maintain Astorga catheter. Stop metformin. Repeat potassium level in 2 to 3 hours. Continue to assess daily for need for renal replacement therapy. Avoid nephrotoxins.
[2025-01-15] MEDS: SODIUM ZIRCONIUM CYCLOSILICATE 10 GM PACKET PO ONE (10:47)
[2025-01-15] MEDS: DEXTROSE 50% SYRINGE 50 ML IVP STA ×2 (10:48→17:42)
[2025-01-15] MEDS: SODIUM BICARB 8.4% 50 ML SYR (1 MEQ/ML) IV STA (10:48)
[2025-01-15] MEDS: CALCIUM GLUCONATE IN NACL 1 GM in SALINE 1 100ML.BAG IVPB ONE (10:49)
[2025-01-15] MEDS: INSULIN REGULAR 100 UNIT/ML VIAL (IV) IV ONE ×2 (10:49→17:42)
[2025-01-15] MEDS: DEXTROSE 5% IN WATER 1,000 ML with SODIUM BICARB (1 MEQ/ML) 150 ML IV SCH (11:28)
[2025-01-15] MEDS: GABAPENTIN 300 MG CAP PO SCH (11:42)
[2025-01-15] MEDS ORDERED: HEPARIN IV SCH (13:00)
[2025-01-15] MEDS ORDERED: DEXTROSE 50% SYRINGE 50 ML IVP PRN ×2 (13:39)
--- NOTE | 2025-01-15 13:43 | P.HPIM ---
History of Present Illness H&P Date: 01/15/25 Patient is a 74-year-old male with a history of type 2 diabetes melitis, hypothyroidism, hypertension, atrial fibrillation was brought to the ER via EMS from [facility] for altered mental status. History is obtained by reviewing ER and EMS notes. Patient was recently hospitalized for sepsis secondary to UTI and cellulitis of the left lower extremity and SIMRAN and was discharged on daptomycin and ceftriaxone for 2 weeks, sent to [facility] for rehabilitation. On arrival to the ED, patient was found to be hypoxic and was put on BiPAP. Initial laboratory evaluation WBC 13.45, hemoglobin 9.5, platelet count 676, sodium 138, potassium 5.8, chloride 92, bicarb 17, BUN 114, creatinine 4.55, gl ucose 227, magnesium 3.0, calcium 8.5, lactic acid 0.9, ALP 144, AST 20 ALT 20, creatinine kinase 130, NT proBNP 20 840, albumin 3.0. Urinalysis consistent with pyuria, hematuria and proteinuria. Chest x-ray shows no acute cardiopulmonary process. 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 EKG consistent with normal sinus rhythm with ventricular rate of 84 bpm, OH interval 144 ms, QRS duration 102 ms, QTc [address] T wave elevation noted. Normal R wave progression noted. Infectious disease was consulted. Nephrology was consulted. Patient is started on IV daptomycin and ceftriaxone. At the time of interview, patient is currently on BiPAP with a setting of 12/6 with a flow rate of 10 and oxygen at 30%. Review of systems: Unable to obtain Physical examination: Vital signs reviewed General: non toxic, no distress, appears at stated age, obese Derm: Multiple chronic lesions on bilateral extremities, legs wrapped Head: atraumatic, normocephalic, symmetric Eyes: EOMI, no lid lag, anicteric sclera, pupils equal round reactive to light ENT: Nose and ears atraumatic, Neck: No cervical lymphadenopathy, trachea midline, supple Mouth: no lip lesion, mucus membranes moist Cardiovascular: S1S2 reg, no murmur, positive dorsalis pedis pulse bilateral, 3+ lower extremity pitting edema Lungs: CTA bilateral, no rhonchi, no rales, no accessory muscle use, on BiPAP Abdominal: soft, nontender to palpation, no guarding Ext: muscle strength 5 out of 5 in all 4 extremities grossly, no gross muscle atrophy, no contractures, Neuro: CN II-XI grossly intact, no gross focal neuro deficits Psych: Alert, oriented, appropriate affect Assessment/Plan: This is a 74-year-old male with a history of type 2 diabetes melitis, hypothyro idism, hypertension, atrial fibrillation was brought to the ER via EMS from [facility] for altered mental status. Case was discussed with the Emergency Room provider and decision was made to admit the patient for acute toxic metabolic encephalopathy, SIMRAN, UTI Labs and images: WBC 13.45, hemoglobin 9.5, platelet count 676, sodium 138, potassium 5.8, chloride 92, bicarb 17, BUN 114, creatinine 4.55, glucose 227, magnesium 3.0, calcium 8.5, lactic acid 0.9, ALP 144, AST 20 ALT 20, creatinine kinase 130, NT proBNP 20 840, albumin 3.0. Urinalysis consistent with pyuria, hematuria and proteinuria. Chest x-ray shows no acute cardiopulmonary process. 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 EKG consistent with normal sinus rhythm with ventricular rate of 84 bpm, OH interval 144 ms, QRS duration 102 ms, QTc [address] T wave el evation noted. Normal R wave progression noted. Infectious disease was consulted. Nephrology was consulted. Patient is started on IV daptomycin and ceftriaxone. Repeat lab work on 01/15/2025 shows WBC 11.8, hemoglobin 10.2, sodium 129, potassium 6.1, chloride 95, bicarb 16, BUN 17, creatinine 5.08, alkaline phos 736, albumin 2.8 Active: #Sepsis secondary to UTI #SIMRAN secondary to ATN secondary to sepsis #Hypervolemic hyponatremia #Hyperkalemia secondary to SIMRAN #Acute toxic metabolic encephalopathy secondary to above Continue with IV Rocephin and IV daptomycin Decrease IV normal saline to 75 cc/h Continue with bicarb drip Repeat potassium in the afternoon Consult infectious disease and nephrology Blood culture pending Order urine culture Continue renal diet #Acute hypoxic respiratory failure, on BiPAP #Volume overload #HFpEF, not in exacerbation Consult pulmonology continue monitor vital signs #Type 2 diabetes Resume Lantus 20 units subcu daily Start patient on sliding scale insulin Monitor for hypoglycemia #Generalized weakness Consult PT/OT DVT prophylaxis: Heparin subcu GI prophylaxis: None F: IV normal saline at 75 cc/h E: Replete as needed N: Renal diet A: Ambulatory at baseline The patient is admitted with an anticipated more than than 2 midnight stay for evaluation of sepsis secondary to UTI, SIMRAN, AMS CODE STATUS: CODE STATUS was discussed with legal guardian over the phone. Legal guardian wants patient to be cardiopulmonary resuscitated but no mechanical intubation Discussed with: Legal guardian Anticipated discharge place: Pending clinical course Dictation was produced using [employer] dictation software. Please excuse any grammatical, word or spelling errors. Attestation I have seen and examined this patient with my resident , discussed the same with the resident/ONDINA, and agree with the dictator's assessment and plan as written Dr. Augustin yin Past Medical History Past Medical History: Atrial Fibrillation, Heart Failure, Hyperlipidemia, Hypertension, Renal Disease, Syncope Additional Past Medical History / Comment(s): anemia, UTI, Hypothyroid, depression, dysphagia History of Any Multi-Drug Resistant Organisms: None Reported Date of last positivie culture/infection: 01/02/25 MDRO Source:: rt 1st toe Additional Past Surgical History / Comment(s): unknown Past Anesthesia/Blood Transfusion Reactions: No Reported Reaction Past Psychological History: No Psychological Hx Reported Smoking Status: Unknown if ever smoked Past Alcohol Use History: None Reported Past Drug Use History: None Reported - Past Family History Father History Unknown: Yes Mother History Unknown: Yes Medications and Allergies Home Medications Medication Instructions Recorded Confirmed Type Aspirin [[place] Aspirin EC] 81 mg PO HS 12/24/18 01/14/25 History Atorvastatin [Lipitor] 20 mg PO HS@199912/24/18 01/14/25 History Cholecalciferol [Vitamin D3 (25 75 mcg PO DAILY 01/13/23 01/14/25 History Mcg = 1000 Iu)] Ferrous Sulfate [Iron (65 MG 325 mg PO HS 01/13/23 01/14/25 History Elemental)] Lactulose 20 gm PO DAILY 01/13/23 01/14/25 History Magnesium Oxide [Magox 400] 400 mg PO HS 01/13/23 01/14/25 History Melatonin 3 mg PO HS 01/13/23 01/14/25 History DULoxetine HCL [Cymbalta] 60 mg PO DAILY@0700 12/29/24 01/14/25 History Divalproex Sprinkle [Depakote 125 mg PO BID@0700,1600 12/29/24 01/14/25 History Sprinkle] Docusate [Colace] 100 mg PO BID 12/29/24 01/14/25 History Gabapentin [Neurontin] 300 mg PO TID@0700,1300,1900 12/29/24 01/14/25 History Icy Hot Advanced Relief 7.5% Patch 1 patch TRANSDERM DAILY@0700 12/29/24 01/14/25 History Ipratropium-Albuterol Nebulize 3 ml INHALATION RT-Q4H PRN 12/29/24 01/14/25 History [Duoneb 0.5 mg-3 mg/3 ml Soln] Levothyroxine Sodium [Synthroid] 88 mcg PO DAILY@0500 12/29/24 01/14/25 History Montelukast [Singulair] 10 mg PO HS@1900 12/29/24 01/14/25 History Naloxone HCl 0.4 mg SQ DIRECTED PRN 12/29/24 01/14/25 History Naloxone HCl 4 mg NASAL DIRECTED PRN 12/29/24 01/14/25 History Furosemide [Lasix] 40 mg PO DAILY #0 01/09/25 01/14/25 Rx Nystatin 100,000 Unit/gm Powd 1 applic TOPICAL BID each 01/09/25 01/14/25 Rx [Mycostatin Powder] Sodium Bicarbonate Tab 650 mg PO BID tab 01/09/25 01/14/25 Rx cefTRIAXone [Rocephin] 2 gm IVPB Q24H 14 Days #14 each 01/09/25 01/14/25 Rx oxyCODONE-APAP 10-325MG [Percocet 1 tab PO Q4H #6 tab 01/09/25 01/14/25 Rx 10-325 mg] 0.9 % Sodium Chloride [Sodium 10 ml IV QID 01/14/25 01/14/25 History Chloride Flush] Acetaminophen [Tylenol Arthritis] 650 mg PO Q6H PRN 01/14/25 01/14/25 History Ascorbic Acid [Vitamin C] 500 mg PO DAILY 01/14/25 01/14/25 History Brimonidine Tartrate [Alphagan P 1 drops BOTH EYES BID 01/14/25 01/14/25 History 0.2% Ophth Soln] DAPTOmycin [Cubicin] 400 mg IVPB DAILY@1300 01/14/25 01/14/25 History Fluticasone Propion/Salmeterol 1 puff INHALATION RT-BID 01/14/25 01/14/25 History [Fluticasone-Salmeterol 250-50] Heparin Sod (Pork) Lock Flush 3 ml IV BID@1300,2100 01/14/25 01/14/25 History Intravenous Solution 10unit/Ml Heparin Sodium,Porcine (1 ml) 5,000 unit SQ Q8H 01/14/25 01/14/25 History [Heparin Sodium] INSULIN LISPRO (HumaLOG) [HumaLOG] See Protocol SQ ACHS 01/14/25 01/14/25 History Insulin Glargine,Hum.rec.anlog 20 units SQ DAILY@0600 01/14/25 01/14/25 History [Lantus Solostar Pen] metFORMIN HCL [Glucophage] 500 mg PO BID@0700,1600 01/14/25 01/14/25 History Allergies Allergy/AdvReac Type Severity Reaction Status Date / Time No Known Allergies Allergy Verified 01/14/25 13:12 Physical Exam Vitals: Vital Signs Temp Pulse Pulse Resp BP BP Pulse Ox 01/15/25 07:38 01/15/25 04:10 01/15/25 03:09 97.7 F 75 15 155/75 99 01/15/25 01:46 81 12 01/15/25 01:32 01/14/25 23:39 97.5 F L 81 12 137/78 97 01/14/25 20:58 01/14/25 20:00 10 L 01/14/25 19:54 97.9 F 69 10 L 122/70 100 01/14/25 18:10 01/14/25 17:00 80 17 112/65 95 01/14/25 15:10 01/14/25 13:53 87 16 128/78 97 01/14/25 11:02 86 17 149/79 95 01/14/25 10:51 01/14/25 10:11 10 L 01/14/25 09:54 01/14/25 09:53 98.4 F 84 18 118/76 96 FiO2 01/15/25 07:38 30 01/15/25 04:10 30 01/15/25 03:09 30 01/15/25 01:46 01/15/25 01:32 30 01/14/25 23:39 30 01/14/25 20:58 30 01/14/25 20:00 01/14/25 19:54 35 01/14/25 18:10 32 01/14/25 17:00 01/14/25 15:10 32 01/14/25 13:53 01/14/25 11:02 01/14/25 10:51 32 01/14/25 10:11 01/14/25 09:54 40 01/14/25 09:53 Intake and Output 01/14/25 01/15/25 01/15/25 22:59 06:59 14:59 Output Total 200 Balance -200 Output: Urine 200 Other: Voiding Method Indwelling Catheter Indwelling Catheter # Voids 0 Weight 117.027 kg 116 kg Results CBC & Chem 7: 01/15/25 06:22 01/16/25 06:03 Labs: Abnormal Lab Results - Last 24 Hours (Table) 01/14/25 01/14/25 01/14/25 Range/Units 10:01 10:01 10:01 WBC 13.47 H (4.50-10.00) 10*3/uL RBC 3.40 L (4.40-5.60) 10*6/uL Hgb 9.5 L (13.0-17.0) g/dL Hct 30.3 L (39.6-50.0) % MCHC 31.4 L (32.0-37.0) g/dL Plt Count 676 H (140-440) 10*3/uL Immature Gran # 0.09 H (0.00-0.04) 10*3/uL Neutrophils # 10.45 H (1.80-7.70) 10*3/uL Monocytes # 1.01 H (0.20-1.00) 10*3/uL Eosinophils # 0.01 L (0.04-0.35) 10*3/uL VBG HCO3 21 L (24-28) mmol/L Sodium 128 L (137-145) mmol/L Potassium 5.8 H (3.5-5.1) mmol/L Chloride 92 L (98-107) mmol/L Carbon Dioxide 17 L (22-30) mmol/L BUN 114 H* (9-20) mg/dL Creatinine 4.77 H (0.66-1.25) mg/dL Glucose 127 H (74-99) mg/dL POC Glucose (mg/dL) (70-110) mg/dL Magnesium 3.0 H (1.6-2.3) mg/dL Alkaline Phosphatase 144 H (38-126) U/L Total Protein 8.3 H (6.3-8.2) g/dL Albumin 3.0 L (3.5-5.0) g/dL Urine Protein (Negative) Urine Blood (Negative) Ur Leukocyte Esterase (Negative) Urine RBC (0-5) /hpf Urine WBC (0-5) /hpf Urine WBC Clumps (None) /hpf Amorphous Sediment (None) /hpf Urine Bacteria (None) /hpf Urine Mucus (None) /hpf 01/14/25 01/15/25 Range/Units 10:56 06:35 WBC (4.50-10.00) 10*3/uL RBC (4.40-5.60) 10*6/uL Hgb (13.0-17.0) g/dL Hct (39.6-50.0) % MCHC (32.0-37.0) g/dL Plt Count (140-440) 10*3/uL Immature Gran # (0.00-0.04) 10*3/uL Neutrophils # (1.80-7.70) 10*3/uL Monocytes # (0.20-1.00) 10*3/uL Eosinophils # (0.04-0.35) 10*3/uL VBG HCO3 (24-28) mmol/L Sodium (137-145) mmol/L Potassium (3.5-5.1) mmol/L Chloride (98-107) mmol/L Carbon Dioxide (22-30) mmol/L BUN (9-20) mg/dL Creatinine (0.66-1.25) mg/dL Glucose (74-99) mg/dL POC Glucose (mg/dL) 120 H (70-110) mg/dL Magnesium (1.6-2.3) mg/dL Alkaline Phosphatase (38-126) U/L Total Protein (6.3-8.2) g/dL Albumin (3.5-5.0) g/dL Urine Protein 3+ H (Negative) Urine Blood Large H (Negative) Ur Leukocyte Esterase Large H (Negative) Urine RBC >182 H (0-5) /hpf Urine WBC >182 H (0-5) /hpf Urine WBC Clumps Many H (None) /hpf Amorphous Sediment Occasional H (None) /hpf Urine Bacteria Occasional H (None) /hpf Urine Mucus Occasional H (None) /hpf Thrombosis Risk Factor Assmnt - Choose All That Apply Any of the Below Risk Factors Present?: Yes Each Factor Represents 1 point: Obesity (BMI >25), Swollen legs (current) Other Risk Factors: Yes Each Risk Factor Represents 2 Points: Age 61-74 years Other congenital or acquired thrombophilia - If yes, enter type in comment: No Thrombosis Risk Factor Assessment Total Risk Factor Score: 4 Thrombosis Risk Factor Assessment Level: Moderate Risk
[2025-01-15 15:25] LABS: ABG Base Excess -4.8 mmol/L; ABG HCO3 22 mmol/L (21-25); ABG Oxygen Saturation 97.4 % (94-97); ABG PCO2 49 mmHg (35-45); ABG PH 7.26 (7.35-7.45); ABG PO2 96 mmHg (83-108); ABG TCO2 24 mmol/L (19-24); Allen Test Performed? Yes
[2025-01-15] MEDS ORDERED: metFORMIN 500 MG TAB PO SCH (16:00)
--- NOTE | 2025-01-15 16:15 | P.CNPUL ---
History of Present Illness Consult date: 01/15/25 Requesting physician: Jose Alfredo Boyce Reason for consult: other (Acute on chronic hypercapnia) Chief complaint: Mental status change History of present illness: This is a 74-year-old white male with history of multiple medical problems, familiar to my service from previous admission, patient was brought in from the local senior care with mostly altered mental status. Upon evaluation in the ER, patient was placed on noninvasive mechanical ventilation/BiPAP at 12/6/50%, patient was noted to be hypoxic and hypercapnic as well as tachypneic. In addition the patient was noted to have leukocytosis, anemia, hyperkalemia, hyponatremia, hypercapnia, respiratory acidosis, anion gap metabolic acidosis, uremia with BUN of 117 creatinine 5.08, in addition the patient was noted to have what seems to be a urinary tract infection with pyuria and bacteriuria. The patient himself is not a great historian, when I saw him on the medical floor, patient was on BiPAP, and patient was barely responsive to deep painful stimuli. His ABG showed a pO2 of 96 pCO2 49 pH of 7.26 and this was on BiPAP 12 /6/30%, increased his IPAP to 14. Patient was admitted mostly with a picture of sepsis, cellulitis, urinary tract infection, and he was already seen by infectious disease on consultation. Placed on Rocephin and daptomycin combination, cultures are pending. Again not much history could be obtained from the patient himself. I have seen this patient last on 11/21 when he was admitted to the ICU with a similar presentation, a presentation of severe sepsis, chronic cellulitis of the extremities, and urinary tract infection. At that time the patient also had acute kidney injury secondary to sepsis, acute lactic acidosis secondary to sepsis and acute non-ST elevation myocardial infarction as well as paroxysmal atrial fibrillation. Review of Systems ROS unobtainable: due to mental status Past Medical History Past Medical History: Atrial Fibrillation, Heart Failure, Hyperlipidemia, Hypertension, Renal Disease, Syncope Additional Past Medical History / Comment(s): anemia, UTI, Hypothyroid, depression, dysphagia History of Any Multi-Drug Resistant Organisms: None Reported Date of last positivie culture/infection: 01/02/25 MDRO Source:: rt 1st toe Additional Past Surgical History / Comment(s): unknown Past Anesthesia/Blood Transfusion Reactions: No Reported Reaction Past Psychological History: No Psychological Hx Reported Smoking Status: Unknown if ever smoked Past Alcohol Use History: None Reported Past Drug Use History: None Reported - Past Family History Father History Unknown: Yes Mother History Unknown: Yes Medications and Allergies Home Medications Medication Instructions Recorded Confirmed Type Aspirin [[place] Aspirin EC] 81 mg PO HS 12/24/18 01/14/25 History Atorvastatin [Lipitor] 20 mg PO HS@199912/24/18 01/14/25 History Cholecalciferol [Vitamin D3 (25 75 mcg PO DAILY 01/13/23 01/14/25 History Mcg = 1000 Iu)] Ferrous Sulfate [Iron (65 MG 325 mg PO HS 01/13/23 01/14/25 History Elemental)] Lactulose 20 gm PO DAILY 01/13/23 01/14/25 History Magnesium Oxide [Magox 400] 400 mg PO HS 01/13/23 01/14/25 History Melatonin 3 mg PO HS 01/13/23 01/14/25 History DULoxetine HCL [Cymbalta] 60 mg PO DAILY@0700 12/29/24 01/14/25 History Divalproex Sprinkle [Depakote 125 mg PO BID@0700,1600 12/29/24 01/14/25 History Sprinkle] Docusate [Colace] 100 mg PO BID 12/29/24 01/14/25 History Gabapentin [Neurontin] 300 mg PO TID@0700,1300,1900 12/29/24 01/14/25 History Icy Hot Advanced Relief 7.5% Patch 1 patch TRANSDERM DAILY@0700 12/29/24 01/14/25 History Ipratropium-Albuterol Nebulize 3 ml INHALATION RT-Q4H PRN 12/29/24 01/14/25 History [Duoneb 0.5 mg-3 mg/3 ml Soln] Levothyroxine Sodium [Synthroid] 88 mcg PO DAILY@0500 12/29/24 01/14/25 History Montelukast [Singulair] 10 mg PO HS@1900 12/29/24 01/14/25 History Naloxone HCl 0.4 mg SQ DIRECTED PRN 12/29/24 01/14/25 History Naloxone HCl 4 mg NASAL DIRECTED PRN 12/29/24 01/14/25 History Furosemide [Lasix] 40 mg PO DAILY #0 01/09/25 01/14/25 Rx Nystatin 100,000 Unit/gm Powd 1 applic TOPICAL BID each 01/09/25 01/14/25 Rx [Mycostatin Powder] Sodium Bicarbonate Tab 650 mg PO BID tab 01/09/25 01/14/25 Rx cefTRIAXone [Rocephin] 2 gm IVPB Q24H 14 Days #14 each 01/09/25 01/14/25 Rx oxyCODONE-APAP 10-325MG [Percocet 1 tab PO Q4H #6 tab 01/09/25 01/14/25 Rx 10-325 mg] 0.9 % Sodium Chloride [Sodium 10 ml IV QID 01/14/25 01/14/25 History Chloride Flush] Acetaminophen [Tylenol Arthritis] 650 mg PO Q6H PRN 01/14/25 01/14/25 History Ascorbic Acid [Vitamin C] 500 mg PO DAILY 01/14/25 01/14/25 History Brimonidine Tartrate [Alphagan P 1 drops BOTH EYES BID 01/14/25 01/14/25 History 0.2% Ophth Soln] DAPTOmycin [Cubicin] 400 mg IVPB DAILY@1300 01/14/25 01/14/25 History Fluticasone Propion/Salmeterol 1 puff INHALATION RT-BID 01/14/25 01/14/25 History [Fluticasone-Salmeterol 250-50] Heparin Sod (Pork) Lock Flush 3 ml IV BID@1300,2100 01/14/25 01/14/25 History Intravenous Solution 10unit/Ml Heparin Sodium,Porcine (1 ml) 5,000 unit SQ Q8H 01/14/25 01/14/25 History [Heparin Sodium] INSULIN LISPRO (HumaLOG) [HumaLOG] See Protocol SQ ACHS 01/14/25 01/14/25 History Insulin Glargine,Hum.rec.anlog 20 units SQ DAILY@0600 01/14/25 01/14/25 History [Lantus Solostar Pen] metFORMIN HCL [Glucophage] 500 mg PO BID@0700,1600 01/14/25 01/14/25 History Allergies Allergy/AdvReac Type Severity Reaction Status Date / Time No Known Allergies Allergy Verified 01/14/25 13:12 Physical Exam Vitals: Vital Signs Temp Pulse Pulse Resp BP BP Pulse Ox 01/15/25 15:22 01/15/25 12:00 61 128/68 98 01/15/25 11:34 01/15/25 08:00 97.6 F 74 18 145/71 99 01/15/25 07:38 01/15/25 04:10 01/15/25 03:09 97.7 F 75 15 155/75 99 01/15/25 01:46 81 12 01/15/25 01:32 01/14/25 23:39 97.5 F L 81 12 137/78 97 01/14/25 20:58 01/14/25 20:00 10 L 01/14/25 19:54 97.9 F 69 10 L 122/70 100 01/14/25 18:10 01/14/25 17:00 80 17 112/65 95 FiO2 01/15/25 15:22 30 01/15/25 12:00 30 01/15/25 11:34 30 01/15/25 08:00 30 01/15/25 07:38 30 01/15/25 04:10 30 01/15/25 03:09 30 01/15/25 01:46 01/15/25 01:32 30 01/14/25 23:39 30 01/14/25 20:58 30 01/14/25 20:00 01/14/25 19:54 35 01/14/25 18:10 32 01/14/25 17:00 Intake and Output 01/15/25 01/15/25 01/15/25 06:59 14:59 22:59 Output Total 200 200 Balance -200 -200 Output: Urine 200 200 Other: Voiding Method Indwelling Catheter Indwelling Catheter Weight 116 kg 116 kg GENERAL: Revealed 74-year-old white male on BiPAP HEENT: PERRLA, EOMI, nonicteric, no neck masses no JVD NECK: No neck masses no stridor no JVD LUNGS: Diminished breath sounds at the bases, no crackles rhonchi or wheezes HEART: Tachycardic, normal S1-S2 audible,no murmur ABDOMEN: Obese, soft, nontender no megaly, no rebound, no guarding. EXTREMITIES: Both are wrapped with Mo wrappings, however pictures of the lower extremities are consistent with severe cellulitis/chronic and redness/erythema extending up to the mid thighs bilaterally. Neurologic: Patient arousable to deep painful stimuli only. Psychiatric: Could not assess Skin: As noted above extensive cellulitis affecting both lower extremities. Results - Laboratory Findings CBC and BMP: 01/15/25 06:22 01/15/25 12:58 ABG ABG pH 7.26 (7.35-7.45) L 01/15/25 15:21 ABG pCO2 49 mmHg (35-45) H 01/15/25 15:21 ABG pO2 96 mmHg (83-108) 01/15/25 15:21 ABG O2 Saturation 97.4 % (94-97) H 01/15/25 15:21 PT/INR, D-dimer PT 11.9 sec (10.0-12.5) 01/14/25 10:01 INR 1.1 (<1.2) 01/14/25 10:01 Abnormal lab findings: Abnormal Labs 01/14/25 01/14/25 01/14/25 10:01 10:01 10:01 WBC 13.47 H RBC 3.40 L Hgb 9.5 L Hct 30.3 L MCHC 31.4 L Plt Count 676 H Immature Gran # 0.09 H Neutrophils # 10.45 H Monocytes # 1.01 H Eosinophils # 0.01 L ABG pH ABG pCO2 ABG O2 Saturation VBG HCO3 21 L Hemoglobin Sodium 128 L Potassium 5.8 H Chloride 92 L Carbon Dioxide 17 L BUN 114 H* Creatinine 4.77 H Glucose 127 H POC Glucose (mg/dL) Magnesium 3.0 H Alkaline Phosphatase 144 H Total Protein 8.3 H Albumin 3.0 L Urine Protein Urine Blood Ur Leukocyte Esterase Urine RBC Urine WBC Urine WBC Clumps Amorphous Sediment Urine Bacteria Urine Mucus 01/14/25 01/15/25 01/15/25 10:56 06:22 06:22 WBC 11.83 H RBC 3.56 L Hgb 10.2 L Hct 32.7 L MCHC 31.2 L Plt Count 624 H Immature Gran # 0.08 H Neutrophils # 8.81 H Monocytes # 1.26 H Eosinophils # 0.02 L ABG pH ABG pCO2 ABG O2 Saturation VBG HCO3 Hemoglobin Sodium 129 L Potassium 6.1 H* Chloride 95 L Carbon Dioxide 16 L BUN 117 H* Creatinine 5.08 H Glucose POC Glucose (mg/dL) Magnesium Alkaline Phosphatase 136 H Total Protein Albumin 2.8 L Urine Protein 3+ H Urine Blood Large H Ur Leukocyte Esterase Large H Urine RBC >182 H Urine WBC >182 H Urine WBC Clumps Many H Amorphous Sediment Occasional H Urine Bacteria Occasional H Urine Mucus Occasional H 01/15/25 01/15/25 01/15/25 06:35 12:58 15:21 WBC RBC Hgb Hct MCHC Plt Count Immature Gran # Neutrophils # Monocytes # Eosinophils # ABG pH 7.26 L ABG pCO2 49 H ABG O2 Saturation 97.4 H VBG HCO3 Hemoglobin 9.2 L Sodium Potassium 5.6 H Chloride Carbon Dioxide BUN Creatinine Glucose POC Glucose (mg/dL) 120 H Magnesium Alkaline Phosphatase Total Protein Albumin Urine Protein Urine Blood Ur Leukocyte Esterase Urine RBC Urine WBC Urine WBC Clumps Amorphous Sediment Urine Bacteria Urine Mucus - Diagnostic Findings Chest x-ray: image reviewed (Chest x-ray showed no evidence of active disease) Assessment and Plan Assessment: Impression: Acute metabolic encephalopathy, multifactorial Severe sepsis Chronic cellulitis of lower extremities Suspect acute urinary tract infection Acute leukocytosis secondary to above Acute on chronic kidney injury secondary to sepsis Acute lactic acidosis secondary to sepsis Acute non-ST elevation myocardial infarction Paroxysmal atrial fibrillation Benign essential hypertension History of hypothyroidism Dyslipidemia Recommendation: Continue antibiotics as per infectious disease on the case patient is now on Rocephin and on daptomycin Continue BiPAP 14/6/30% Continue present supportive care measures and continue to monitor labs and check cultures Continue bronchodilators Continue lactulose Continue levothyroxine Monitor sugar closely and address accordingly with insulin Resume seizure meds for this patient Neurology to see in consultation is strongly recommended Will continue to follow Time with Patient: Greater than 30
[2025-01-15 16:53] LABS: Glucose,Whole Blood 107 mg/dL (70-110)
[2025-01-15] MEDS: INSULIN LISPRO (HumaLOG) 100 UNIT/ML 10 mL VL SQ SCH (16:53)
[2025-01-15] MEDS: DIVALPROEX SPRINKLE 125 MG CAP.SPRINK PO SCH (16:53)
[2025-01-15] MEDS: MONTELUKAST 10 MG TAB PO SCH (16:53)
--- NOTE | 2025-01-15 16:53 | P.PN ---
Subjective Progress Note Date: 01/15/25 Principal diagnosis: Reason for follow-up is left lower extremity cellulitis UTI Patient is a 74-year-old male with a past medical history significant for hypertension hyperlipidemia heart failure atrial fibrillation recent admitted to this facility with extensive left lower extremity cellulitis patient local culture positive for MRSA Proteus along with Enterococcus faecalis for which the patient got midline and was advised a 10-day course of IV Rocephin and daptomycin not been sent to the hospital with hypoxemia and mental status changes did have a positive UA. On today's evaluation that is 01/15/2025, the patient continues to be afebrile, the patient is on BiPAP 30% FiO2 patient remains to be lethargic and reported history of vomiting diarrhea or any change reported by the nursing staff. Patient white count is down to 11.83, creatinine is 5.08 Objective - Vital Signs Vital signs: Vital Signs Temp 97.6 F 01/15/25 08:00 Pulse 74 01/15/25 08:00 Resp 18 01/15/25 08:00 BP 145/71 01/15/25 08:00 Pulse Ox 99 01/15/25 08:00 FiO2 30 01/15/25 11:34 Intake & Output 01/14/25 01/15/25 01/15/25 18:59 06:59 18:59 Output Total 200 200 Balance -200 -200 Weight 117.027 kg 116 kg Output: Urine 200 200 Other: Voiding Method Indwelling Catheter Indwelling Catheter # Voids 0 - Exam GENERAL DESCRIPTION: An elderly male lying in bed in no distress RESPIRATORY SYSTEM: Unlabored breathing , decreased breath sounds at bases HEART: S1 S2 regular rate and rhythm , ABDOMEN: Soft , no tenderness EXTREMITIES: Left lower extremity overall swelling redness slightly decreased no drainage of the dressing - Labs CBC & Chem 7: 01/15/25 06:22 01/15/25 12:58 Labs: Abnormal Lab Results - Last 24 Hours (Table) 01/15/25 01/15/25 01/15/25 Range/Units 06:22 06:22 06:35 WBC 11.83 H (4.50-10.00) 10*3/uL RBC 3.56 L (4.40-5.60) 10*6/uL Hgb 10.2 L (13.0-17.0) g/dL Hct 32.7 L (39.6-50.0) % MCHC 31.2 L (32.0-37.0) g/dL Plt Count 624 H (140-440) 10*3/uL Immature Gran # 0.08 H (0.00-0.04) 10*3/uL Neutrophils # 8.81 H (1.80-7.70) 10*3/uL Monocytes # 1.26 H (0.20-1.00) 10*3/uL Eosinophils # 0.02 L (0.04-0.35) 10*3/uL Sodium 129 L (137-145) mmol/L Potassium 6.1 H* (3.5-5.1) mmol/L Chloride 95 L (98-107) mmol/L Carbon Dioxide 16 L (22-30) mmol/L BUN 117 H* (9-20) mg/dL Creatinine 5.08 H (0.66-1.25) mg/dL POC Glucose (mg/dL) 120 H (70-110) mg/dL Alkaline Phosphatase 136 H (38-126) U/L Albumin 2.8 L (3.5-5.0) g/dL Assessment and Plan (1) Encephalopathy Current Visit: Yes Status: Acute Code(s): G93.40 - ENCEPHALOPATHY, UNSPECIFIED SNOMED Code(s): 94051041 (2) UTI (urinary tract infection) Current Visit: Yes Status: Acute Code(s): N39.0 - URINARY TRACT INFECTION, SITE NOT SPECIFIED SNOMED Code(s): 43600033 (3) Cellulitis of left leg Current Visit: No Status: Acute Code(s): L03.116 - CELLULITIS OF LEFT LOWER LIMB SNOMED Code(s): 15292767705263808 Plan: 1patient presented to hospital with mental status changes lethargy which is likely multifactorial in this patient noticed to have significant worsening of his kidney function and this patient was getting treatment for his left lower extremity wound and cellulitis which has shown some improvement but not complete resolution of the left lower extremity cellulitis, with recent culture positive for Proteus and MRSA 2-patient also has a positive UA but hard to get any symptom to see if any component of symptomatic UTI 3-patient is afebrile white count is trending down we will treat with daptomycin Rocephin while waiting for the workup to be completed Dictation was produced using [employer] dictation software. please excuse any grammatical, word or spelling errors. Time with Patient: Less than 30
[2025-01-15] MEDS: FUROSEMIDE 10 MG/ML 10 ML VIAL IV STA (17:42)
[2025-01-15] MEDS: SYMBICORT 80-4.5 MCG INHALER INHALATION SCH (19:19)
[2025-01-15 20:21] LABS: Glucose,Whole Blood 151 mg/dL (70-110)
[2025-01-15] MEDS ORDERED: MAGNESIUM OXIDE 400 MG TAB PO SCH (21:00)
[2025-01-15] MEDS: ATORVASTATIN 20 MG TAB PO SCH (21:00)
[2025-01-15] MEDS: FERROUS SULFATE 325 MG TAB PO SCH (21:01)
[2025-01-15] MEDS: ASPIRIN 81 MG PO SCH (21:01)
[2025-01-15] MEDS: MELATONIN 3 MG TABLET PO SCH (21:01)
[2025-01-16 03:13] LABS: Glucose,Whole Blood 139 mg/dL (70-110)
[2025-01-16] MEDS: LEVOTHYROXINE 88 MCG TAB PO SCH (04:29)
[2025-01-16 05:53] LABS: Glucose,Whole Blood 157 mg/dL (70-110)
[2025-01-16] MEDS: DULoxetine HCL 60 MG CAPSULE.DR PO SCH (05:58)
[2025-01-16] MEDS ORDERED: [UNRECOGNIZED DRUG - OTHER] TRANSDERM SCH (07:00)
[2025-01-16 07:49] LABS: African American GFR (CKD) 12 (>60 ml/min/1.73 sqM); Anion Gap 12 mmol/L; Calcium 7.9 mg/dL (8.4-10.2); Carbon Dioxide 23 mmol/L (22-30); Chloride 94 mmol/L (98-107); Glucose 135 mg/dL (74-99); Non-African American GFR(CKD) 10 (>60 ml/min/1.73 sqM); Potassium 5.2 mmol/L (3.5-5.1); Sodium 129 mmol/L (137-145)
[2025-01-16 07:58] LABS: Blood Urea Nitrogen 120 mg/dL (9-20)
[2025-01-16] MEDS: INSULIN GLARGINE (LANTUS) 100 UNIT/ML SYR SQ SCH (08:46)
--- NOTE | 2025-01-16 09:50 | P.PN ---
Subjective Patient is seen in follow-up for acute kidney injury on chronic kidney disease. No improvement in renal function. Has Astorga catheter. Urine output 500 cc in the last 24 hours. Did receive IV Lasix yesterday. Acidosis improved with bicarb drip. On BiPAP. Poor historian. Vital signs are stable. General: No acute distress. HEENT: On BiPAP. LUNGS: No audible rhonchi or wheezes. HEART: Rate and Rhythm are regular. ABDOMEN: No distention. EXTREMITITES: Chronic changes noted. Trace edema. Wrapped. Objective - Vital Signs Vital signs: Vital Signs Temp 98.3 F 01/16/25 08:36 Pulse 71 01/16/25 08:36 Resp 10 L 01/16/25 08:36 BP 129/69 01/16/25 08:36 Pulse Ox 95 01/16/25 08:36 FiO2 30 01/16/25 08:36 Intake & Output 01/15/25 01/16/25 01/16/25 18:59 06:59 18:59 Intake Total 960 1040 10 Output Total 300 200 Balance 660 840 10 Weight 116 kg 116 kg Intake: IV 10 Invasive Line 1 10 Intake, IV Titration 960 800 Amount Calcium Gluconate in NaCl 100 1 gm In Saline 1 100ml. bag @ 100 mls/hr IVPB ONCE ONE Rx#:[id number] DAPTOmycin 400 mg In 50 Sodium Chloride 0.9% 50 ml @ 100 mls/hr IVPB Q48H [facility] Rx#:[id number] Dextrose 5% in Water 1, 500 800 000 ml @ 100 mls/hr IV . [id number] SAMANTHA with Sodium Bicarb (1 Meq/ml) 150 ml Rx#:[id number] Sodium Chloride 0.9% 1, 260 000 ml @ 75 mls/hr IV . [id number] [facility] Rx#:[id number] cefTRIAXone 2 gm In 50 Sodium Chloride 0.9% 50 ml @ 100 mls/hr IVPB Q24HR [facility] Rx#:[id number] Oral 240 Output: Urine 300 200 Other: Voiding Method Indwelling Catheter Indwelling Catheter Indwelling Catheter - Labs CBC & Chem 7: 01/15/25 06:22 01/16/25 06:03 Labs: Abnormal Lab Results - Last 24 Hours (Table) 01/15/25 01/15/25 01/15/25 Range/Units 12:58 15:21 20:10 ABG pH 7.26 L (7.35-7.45) ABG pCO2 49 H (35-45) mmHg ABG O2 Saturation 97.4 H (94-97) % Hemoglobin 9.2 L (13.0-17.5) gm/dL Sodium (137-145) mmol/L Potassium 5.6 H 5.3 H (3.5-5.1) mmol/L Chloride (98-107) mmol/L BUN (9-20) mg/dL Creatinine (0.66-1.25) mg/dL Glucose (74-99) mg/dL POC Glucose (mg/dL) (70-110) mg/dL Calcium (8.4-10.2) mg/dL Magnesium (1.6-2.3) mg/dL 01/15/25 01/16/25 01/16/25 Range/Units 20:20 03:12 05:52 ABG pH (7.35-7.45) ABG pCO2 (35-45) mmHg ABG O2 Saturation (94-97) % Hemoglobin (13.0-17.5) gm/dL Sodium (137-145) mmol/L Potassium (3.5-5.1) mmol/L Chloride (98-107) mmol/L BUN (9-20) mg/dL Creatinine (0.66-1.25) mg/dL Glucose (74-99) mg/dL POC Glucose (mg/dL) 151 H 139 H 157 H (70-110) mg/dL Calcium (8.4-10.2) mg/dL Magnesium (1.6-2.3) mg/dL 01/16/25 Range/Units 06:03 ABG pH (7.35-7.45) ABG pCO2 (35-45) mmHg ABG O2 Saturation (94-97) % Hemoglobin (13.0-17.5) gm/dL Sodium 129 L (137-145) mmol/L Potassium 5.2 H (3.5-5.1) mmol/L Chloride 94 L (98-107) mmol/L BUN 120 H* (9-20) mg/dL Creatinine 5.10 H (0.66-1.25) mg/dL Glucose 135 H (74-99) mg/dL POC Glucose (mg/dL) (70-110) mg/dL Calcium 7.9 L (8.4-10.2) mg/dL Magnesium 3.0 H (1.6-2.3) mg/dL Microbiology - Last 24 Hours (Table) 01/14/25 10:14 Blood Culture - Preliminary Blood Assessment and Plan Plan: Assessment: 1. Acute kidney injury secondary to ATN secondary to severe sepsis. Creatinine stable at 5.1 today. Kidney ultrasound from December 2024 showed no evidence of hydronephrosis. 2. Chronic kidney disease stage IIIa with baseline creatinine 1.2-1.4. 3. Chronic diastolic CHF and moderate aortic stenosis. 4. Hyperkalemia secondary to acute kidney injury and acidosis. Better. 5. Metabolic acidosis secondary to acute kidney injury and IV fluids. Also on metformin. Improved with bicarb drip. 6. Hypovolemic hyponatremia. Stable. 7. Severe sepsis secondary to UTI. Also had recent cellulitis. On antibiotics. Plan: Decrease rate of bicarb drip to 50 cc an hour. Maintain Astorga catheter. Metformin discontinued. Avoid nephrotoxins. With no improvement in renal function and concern for uremia and electrolyte imbalances, initiate renal replacement therapy. Consult vascular surgery for dialysis catheter placement. First treatment of hemodialysis today and second treatment tomorrow.
--- NOTE | 2025-01-16 10:19 | P.GSCN ---
History of Present Illness Consult date: 01/16/25 Reason for Consult: Temporary hemodialysis catheter placement Requesting physician: Robbi Novoa History of present illness: This is a 74-year-old male who was recently admitted to the hospital for sepsis secondary to cellulitis and urinary tract infection who was brought back into the hospital 2 days ago for concerns of altered mental status changes. Past medical history includes atrial fibrillation, heart failure, hypertension, hyperlipidemia and chronic kidney disease. Patient with acute on chronic kidney injury with worsening kidney function. Patient is also having worsening respiratory status and currently on BiPAP and is a full code with DO NOT INTUBATE. Patient has a legal guardian. Vascular surgery was consulted to place a temporary hemodialysis catheter. Patient is currently obtunded, does respond to his name and blinking his eyes. Review of Systems ROS unobtainable: due to mental status Past Medical History Past Medical History: Atrial Fibrillation, Heart Failure, Hyperlipidemia, Hypertension, Renal Disease, Syncope Additional Past Medical History / Comment(s): anemia, UTI, Hypothyroid, depression, dysphagia History of Any Multi-Drug Resistant Organisms: None Reported Year Discovered:: 01/02/25 MDRO Source:: rt 1st toe Additional Past Surgical History / Comment(s): unknown Past Anesthesia/Blood Transfusion Reactions: No Reported Reaction Past Psychological History: No Psychological Hx Reported Smoking Status: Unknown if ever smoked Past Alcohol Use History: None Reported Past Drug Use History: None Reported - Past Family History Father History Unknown: Yes Mother History Unknown: Yes Medications and Allergies Home Medications Medication Instructions Recorded Confirmed Type Aspirin [[place] Aspirin EC] 81 mg PO HS 12/24/18 01/14/25 History Atorvastatin [Lipitor] 20 mg PO HS@199912/24/18 01/14/25 History Cholecalciferol [Vitamin D3 (25 75 mcg PO DAILY 01/13/23 01/14/25 History Mcg = 1000 Iu)] Ferrous Sulfate [Iron (65 MG 325 mg PO HS 01/13/23 01/14/25 History Elemental)] Lactulose 20 gm PO DAILY 01/13/23 01/14/25 History Magnesium Oxide [Magox 400] 400 mg PO HS 01/13/23 01/14/25 History Melatonin 3 mg PO HS 01/13/23 01/14/25 History DULoxetine HCL [Cymbalta] 60 mg PO DAILY@0700 12/29/24 01/14/25 History Divalproex Sprinkle [Depakote 125 mg PO BID@0700,1600 12/29/24 01/14/25 History Sprinkle] Docusate [Colace] 100 mg PO BID 12/29/24 01/14/25 History Gabapentin [Neurontin] 300 mg PO TID@0700,1300,1900 12/29/24 01/14/25 History Icy Hot Advanced Relief 7.5% Patch 1 patch TRANSDERM DAILY@0700 12/29/24 01/14/25 History Ipratropium-Albuterol Nebulize 3 ml INHALATION RT-Q4H PRN 12/29/24 01/14/25 History [Duoneb 0.5 mg-3 mg/3 ml Soln] Levothyroxine Sodium [Synthroid] 88 mcg PO DAILY@0500 12/29/24 01/14/25 History Montelukast [Singulair] 10 mg PO HS@1900 12/29/24 01/14/25 History Naloxone HCl 0.4 mg SQ DIRECTED PRN 12/29/24 01/14/25 History Naloxone HCl 4 mg NASAL DIRECTED PRN 12/29/24 01/14/25 History Furosemide [Lasix] 40 mg PO DAILY #0 01/09/25 01/14/25 Rx Nystatin 100,000 Unit/gm Powd 1 applic TOPICAL BID each 01/09/25 01/14/25 Rx [Mycostatin Powder] Sodium Bicarbonate Tab 650 mg PO BID tab 01/09/25 01/14/25 Rx cefTRIAXone [Rocephin] 2 gm IVPB Q24H 14 Days #14 each 01/09/25 01/14/25 Rx oxyCODONE-APAP 10-325MG [Percocet 1 tab PO Q4H #6 tab 01/09/25 01/14/25 Rx 10-325 mg] 0.9 % Sodium Chloride [Sodium 10 ml IV QID 01/14/25 01/14/25 History Chloride Flush] Acetaminophen [Tylenol Arthritis] 650 mg PO Q6H PRN 01/14/25 01/14/25 History Ascorbic Acid [Vitamin C] 500 mg PO DAILY 01/14/25 01/14/25 History Brimonidine Tartrate [Alphagan P 1 drops BOTH EYES BID 01/14/25 01/14/25 History 0.2% Ophth Soln] DAPTOmycin [Cubicin] 400 mg IVPB DAILY@1300 01/14/25 01/14/25 History Fluticasone Propion/Salmeterol 1 puff INHALATION RT-BID 01/14/25 01/14/25 History [Fluticasone-Salmeterol 250-50] Heparin Sod (Pork) Lock Flush 3 ml IV BID@1300,2100 01/14/25 01/14/25 History Intravenous Solution 10unit/Ml Heparin Sodium,Porcine (1 ml) 5,000 unit SQ Q8H 01/14/25 01/14/25 History [Heparin Sodium] INSULIN LISPRO (HumaLOG) [HumaLOG] See Protocol SQ ACHS 01/14/25 01/14/25 History Insulin Glargine,Hum.rec.anlog 20 units SQ DAILY@0600 01/14/25 01/14/25 History [Lantus Solostar Pen] metFORMIN HCL [Glucophage] 500 mg PO BID@0700,1600 01/14/25 01/14/25 History Allergies Allergy/AdvReac Type Severity Reaction Status Date / Time No Known Allergies Allergy Verified 01/14/25 13:12 Surgical - Exam Vital Signs Temp Pulse Resp BP Pulse Ox 98.4 F 84 18 118/76 96 01/14/25 09:53 01/14/25 09:53 01/14/25 09:53 01/14/25 09:53 01/14/25 09:53 General appearance: The patient is obtunded, but arousable, with BiPAP on. . Morbidly obese. HET: Head is normocephalic and atraumatic. Pupils are equal and reactive. Neck: Supple. Heart: Regular. Lungs: Equal expansion, normal respiratory effort. Abdomen: Soft, nontender, nondistended. Left lower abdomen and groin with ecchymosis. Extremities: Bilateral lower extremities with pitting edema, erythema and cellulitis. Neurological: Patient appears obtunded, but arousable with eyes open. Results - Labs 01/16/25 06:03 01/16/25 06:03 Abnormal Lab Results - Last 24 Hours (Table) 01/15/25 01/15/25 01/15/25 Range/Units 12:58 15:21 20:10 ABG pH 7.26 L (7.35-7.45) ABG pCO2 49 H (35-45) mmHg ABG O2 Saturation 97.4 H (94-97) % Hemoglobin 9.2 L (13.0-17.5) gm/dL Sodium (137-145) mmol/L Potassium 5.6 H 5.3 H (3.5-5.1) mmol/L Chloride (98-107) mmol/L BUN (9-20) mg/dL Creatinine (0.66-1.25) mg/dL Glucose (74-99) mg/dL POC Glucose (mg/dL) (70-110) mg/dL Calcium (8.4-10.2) mg/dL Magnesium (1.6-2.3) mg/dL 01/15/25 01/16/25 01/16/25 Range/Units 20:20 03:12 05:52 ABG pH (7.35-7.45) ABG pCO2 (35-45) mmHg ABG O2 Saturation (94-97) % Hemoglobin (13.0-17.5) gm/dL Sodium (137-145) mmol/L Potassium (3.5-5.1) mmol/L Chloride (98-107) mmol/L BUN (9-20) mg/dL Creatinine (0.66-1.25) mg/dL Glucose (74-99) mg/dL POC Glucose (mg/dL) 151 H 139 H 157 H (70-110) mg/dL Calcium (8.4-10.2) mg/dL Magnesium (1.6-2.3) mg/dL 01/16/25 Range/Units 06:03 ABG pH (7.35-7.45) ABG pCO2 (35-45) mmHg ABG O2 Saturation (94-97) % Hemoglobin (13.0-17.5) gm/dL Sodium 129 L (137-145) mmol/L Potassium 5.2 H (3.5-5.1) mmol/L Chloride 94 L (98-107) mmol/L BUN 120 H* (9-20) mg/dL Creatinine 5.10 H (0.66-1.25) mg/dL Glucose 135 H (74-99) mg/dL POC Glucose (mg/dL) (70-110) mg/dL Calcium 7.9 L (8.4-10.2) mg/dL Magnesium 3.0 H (1.6-2.3) mg/dL Microbiology - Last 24 Hours (Table) 01/14/25 10:14 Blood Culture - Preliminary Blood Diabetes panel 01/15/25 01/15/25 01/16/25 Range/Units 12:58 20:10 06:03 Sodium 129 L (137-145) mmol/L Potassium 5.6 H 5.3 H 5.2 H (3.5-5.1) mmol/L Chloride 94 L (98-107) mmol/L Carbon Dioxide 23 (22-30) mmol/L BUN 120 H* (9-20) mg/dL Creatinine 5.10 H (0.66-1.25) mg/dL Glucose 135 H (74-99) mg/dL Calcium 7.9 L (8.4-10.2) mg/dL Calcium panel 01/16/25 Range/Units 06:03 Calcium 7.9 L (8.4-10.2) mg/dL Pituitary panel 01/15/25 01/15/25 01/16/25 Range/Units 12:58 20:10 06:03 Sodium 129 L (137-145) mmol/L Potassium 5.6 H 5.3 H 5.2 H (3.5-5.1) mmol/L Chloride 94 L (98-107) mmol/L Carbon Dioxide 23 (22-30) mmol/L BUN 120 H* (9-20) mg/dL Creatinine 5.10 H (0.66-1.25) mg/dL Glucose 135 H (74-99) mg/dL Calcium 7.9 L (8.4-10.2) mg/dL Adrenal panel 01/15/25 01/15/25 01/16/25 Range/Units 12:58 20:10 06:03 Sodium 129 L (137-145) mmol/L Potassium 5.6 H 5.3 H 5.2 H (3.5-5.1) mmol/L Chloride 94 L (98-107) mmol/L Carbon Dioxide 23 (22-30) mmol/L BUN 120 H* (9-20) mg/dL Creatinine 5.10 H (0.66-1.25) mg/dL Glucose 135 H (74-99) mg/dL Calcium 7.9 L (8.4-10.2) mg/dL Assessment and Plan Assessment: 1. Acute kidney injury requiring renal replacement therapy 2. Chronic kidney disease 3. Acute metabolic encephalopathy 4. Sepsis secondary to UTI and he has cellulitis of lower extremities 5. Hypoxic on BiPAP Plan: 1. 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 This was discussed with patient's legal guardian by nursing. Legal guardian would like to proceed with temporary hemodialysis catheter placement at this time. 2. Plan for temporary hemodialysis catheter placement 3. Consent was obtained by legal guardian, and chart 4. Hemodialysis per recommendations from nephrology Thank you for this consultation, we will continue to follow. The impression and plan of care has been dictated as directed. I performed a history and examination of this patient, discussed the same with the dictator. I agree with the dictator's note ,documented as a scribe. Any additional findings or plans will be noted.
[2025-01-16 11:27] LABS: Glucose,Whole Blood 152 mg/dL (70-110)
[2025-01-16 11:52] LABS: Basophils # (A) 0.01 10*3/uL (0.00-0.10); Basophils % (A) 0.1 %; Eosinophils # (A) 0.01 10*3/uL (0.04-0.35); Eosinophils % (A) 0.1 %; HCT 26.3 % (39.6-50.0); HGB 8.1 g/dL (13.0-17.0); Lymphocytes # (A) 1.43 10*3/uL (0.90-5.00); Lymphocytes % (A) 18.3 %; MCH 28.1 pg (27.0-32.0); MCHC 30.8 g/dL (32.0-37.0); MCV 91.3 fL (80.0-97.0); Mean Platelet Volume 9.4 fL (9.5-12.2); Monocytes # (A) 0.77 10*3/uL (0.20-1.00); Monocytes % (A) 9.8 %; Neutrophils # (A) 5.56 10*3/uL (1.80-7.70); Neutrophils % (A) 71.2 %; Platelet Count 581 10*3/uL (140-440); RBC 2.88 10*6/uL (4.40-5.60); RDW 16.8 % (11.5-14.5); WBC 7.82 10*3/uL (4.50-10.00)
--- NOTE | 2025-01-16 13:09 | P.PN ---
Progress Note - Text Progress Note Date: 01/16/25 Neurology is consulted for AMS and has hx of seizure. It seems the patient has SIMRAN on CKD and is getting temporary cath. I went to see the patient and is process of getting temporary cath. Will see the patient later today.
--- NOTE | 2025-01-16 13:52 | P.PN ---
Subjective Progress Note Date: 01/16/25 Principal diagnosis: Acute metabolic encephalopathy with sepsis and cellulitis. This is a 74-year-old white male with history of multiple medical problems, familiar to my service from previous admission, patient was brought in from the local longterm with mostly altered mental status. Upon evaluation in the ER, patient was placed on noninvasive mechanical ventilation/BiPAP at 12/6/50%, patient was noted to be hypoxic and hypercapnic as well as tachypneic. In addition the patient was noted to have leukocytosis, anemia, hyperkalemia, hyponatremia, hypercapnia, respiratory acidosis, anion gap metabolic acidosis, uremia with BUN of 117 creatinine 5.08, in addition the patient was noted to have what seems to be a urinary tract infection with pyuria and bacteriuria. The patient himself is not a great historian, when I saw him on the medical floor, patient was on BiPAP, and patient was barely responsive to deep painful stimuli. His ABG showed a pO2 of 96 pCO2 49 pH of 7.26 and this was on BiPAP 12/6/30%, increased his IPAP to 14. Patient was admitted mostly with a picture of sepsis, cellulitis, urinary tract infection, and he was already seen by infectious disease on consultation. Placed on Rocephin and daptomycin combination, cultures are pending. Again not much history could be obtained from the patient himself. I have seen this patient last on 11/21 when he was admitted to the ICU with a similar presentation, a presentation of severe sepsis, chronic cellulitis of the extremities, and urinary tract infection. At that time the patient also had acute kidney injury secondary to sepsis, acute lactic acidosis secondary to sepsis and acute non-ST elevation myocardial infarction as well as paroxysmal atrial fibrillation. Patient was seen today on 01/16/2025, slight improvement in his response to pain and arousal, but does not make any purposeful movement does not respond to verbal stimuli. Patient remains on BiPAP 18/6/30%, patient was seen by vascular surgery and apparently he may undergo dialysis catheter placement as recommended by nephrology. Labs today showed WBC count of 7.8 hemoglobin 8.1 ABG yesterday showed a pO2 of 96 pCO2 49 pH of 7.26 basic metabolic profile today showed low sodium of 129 potassium 5.2 BUN is up to 120 creatinine is up to 5.10. Patient remains on antibiotics for her presumptive sepsis from cellulitis and possibly UTI. Blood cultures have been negative so far in the last 24 hours. Objective - Vital Signs Vital signs: Vital Signs Temp 97.9 F 01/16/25 12:00 Pulse 69 01/16/25 12:00 Resp 10 L 01/16/25 12:00 BP 130/65 01/16/25 12:00 Pulse Ox 97 01/16/25 12:00 FiO2 30 01/16/25 12:00 Intake & Output 01/15/25 01/16/25 01/16/25 18:59 06:59 18:59 Intake Total 960 1040 10 Output Total 300 200 Balance 660 840 10 Weight 116 kg 116 kg Intake: IV 10 Invasive Line 1 10 Intake, IV Titration 960 800 Amount Calcium Gluconate in NaCl 100 1 gm In Saline 1 100ml. bag @ 100 mls/hr IVPB ONCE ONE Rx#:[id number] DAPTOmycin 400 mg In 50 Sodium Chloride 0.9% 50 ml @ 100 mls/hr IVPB Q48H SAMANTHA Rx#:[id number] Dextrose 5% in Water 1, 500 800 000 ml @ 100 mls/hr IV . [id number] SAMANTHA with Sodium Bicarb (1 Meq/ml) 150 ml Rx#:[id number] Sodium Chloride 0.9% 1, 260 000 ml @ 75 mls/hr IV . [id number] SAMANTHA Rx#:[id number] cefTRIAXone 2 gm In 50 Sodium Chloride 0.9% 50 ml @ 100 mls/hr IVPB Q24HR SAMANTHA Rx#:[id number] Oral 240 Output: Urine 300 200 Other: Voiding Method Indwelling Catheter Indwelling Catheter Indwelling Catheter - Exam GENERAL: Revealed 74-year-old white male on BiPAP HEENT: PERRLA, EOMI, nonicteric, no neck masses no JVD NECK: No neck masses no stridor no JVD LUNGS: Diminished breath sounds at the bases, no crackles rhonchi or wheezes HEART: Tachycardic, normal S1-S2 audible,no murmur ABDOMEN: Obese, soft, nontender no megaly, no rebound, no guarding. EXTREMITIES: Both are wrapped with Mo wrappings, however pictures of the lower extremities are consistent with severe cellulitis/chronic and redness/erythema extending up to the mid thighs bilaterally. Neurologic: Minimal arousable with deep painful stimuli Psychiatric: Could not assess Skin: As noted above extensive cellulitis affecting both lower extremities. - Labs CBC & Chem 7: 01/16/25 06:03 01/16/25 06:03 Labs: Abnormal Lab Results - Last 24 Hours (Table) 01/15/25 01/15/25 01/15/25 Range/Units 15:21 20:10 20:20 RBC (4.40-5.60) 10*6/uL Hgb (13.0-17.0) g/dL Hct (39.6-50.0) % MCHC (32.0-37.0) g/dL Plt Count (140-440) 10*3/uL MPV (9.5-12.2) fL Eosinophils # (0.04-0.35) 10*3/uL ABG pH 7.26 L (7.35-7.45) ABG pCO2 49 H (35-45) mmHg ABG O2 Saturation 97.4 H (94-97) % Hemoglobin 9.2 L (13.0-17.5) gm/dL Sodium (137-145) mmol/L Potassium 5.3 H (3.5-5.1) mmol/L Chloride (98-107) mmol/L BUN (9-20) mg/dL Creatinine (0.66-1.25) mg/dL Glucose (74-99) mg/dL POC Glucose (mg/dL) 151 H (70-110) mg/dL Hemoglobin A1c (<=6.0) % Calcium (8.4-10.2) mg/dL Magnesium (1.6-2.3) mg/dL 01/16/25 01/16/25 01/16/25 Range/Units 03:12 05:52 06:03 RBC (4.40-5.60) 10*6/uL Hgb (13.0-17.0) g/dL Hct (39.6-50.0) % MCHC (32.0-37.0) g/dL Plt Count (140-440) 10*3/uL MPV (9.5-12.2) fL Eosinophils # (0.04-0.35) 10*3/uL ABG pH (7.35-7.45) ABG pCO2 (35-45) mmHg ABG O2 Saturation (94-97) % Hemoglobin (13.0-17.5) gm/dL Sodium (137-145) mmol/L Potassium (3.5-5.1) mmol/L Chloride (98-107) mmol/L BUN (9-20) mg/dL Creatinine (0.66-1.25) mg/dL Glucose (74-99) mg/dL POC Glucose (mg/dL) 139 H 157 H (70-110) mg/dL Hemoglobin A1c 8.5 H (<=6.0) % Calcium (8.4-10.2) mg/dL Magnesium (1.6-2.3) mg/dL 01/16/25 01/16/25 01/16/25 Range/Units 06:03 06:03 11:26 RBC 2.88 L (4.40-5.60) 10*6/uL Hgb 8.1 L D (13.0-17.0) g/dL Hct 26.3 L (39.6-50.0) % MCHC 30.8 L (32.0-37.0) g/dL Plt Count 581 H (140-440) 10*3/uL MPV 9.4 L (9.5-12.2) fL Eosinophils # 0.01 L (0.04-0.35) 10*3/uL ABG pH (7.35-7.45) ABG pCO2 (35-45) mmHg ABG O2 Saturation (94-97) % Hemoglobin (13.0-17.5) gm/dL Sodium 129 L (137-145) mmol/L Potassium 5.2 H (3.5-5.1) mmol/L Chloride 94 L (98-107) mmol/L BUN 120 H* (9-20) mg/dL Creatinine 5.10 H (0.66-1.25) mg/dL Glucose 135 H (74-99) mg/dL POC Glucose (mg/dL) 152 H (70-110) mg/dL Hemoglobin A1c (<=6.0) % Calcium 7.9 L (8.4-10.2) mg/dL Magnesium 3.0 H (1.6-2.3) mg/dL Microbiology - Last 24 Hours (Table) 01/14/25 10:14 Blood Culture - Preliminary Blood Assessment and Plan Assessment: Impression: Acute metabolic encephalopathy, multifactorial Severe sepsis Chronic cellulitis of lower extremities Suspect acute urinary tract infection Acute leukocytosis secondary to above Acute on chronic kidney injury secondary to sepsis Acute lactic acidosis secondary to sepsis Acute non-ST elevation myocardial infarction Paroxysmal atrial fibrillation Benign essential hypertension History of hypothyroidism Dyslipidemia Recommendation: Continue antibiotics as per infectious disease on the case patient is now on Rocephin and on daptomycin Continue BiPAP 18/6/30% Continue present supportive care measures and continue to monitor labs and check cultures Continue bronchodilators Discontinue lactulose as ammonia level is normal Continue levothyroxine Continue to monitor blood sugars Resume seizure meds for this patient, patient is being followed by neurology Overall long-term prognosis extremely poor and guarded Should seriously consider hospice and comfort care measures and should have his situation discussed with legal guardian Will continue to follow Time with Patient: Less than 30
--- NOTE | 2025-01-16 14:37 | P.PN ---
Subjective Progress Note Date: 01/16/25 Patient is a 74-year-old male with a history of type 2 diabetes melitis, hypothyroidism, hypertension, atrial fibrillation was brought to the ER via EMS from [facility] for altered mental status. History is obtained by reviewing ER and EMS notes. Patient was recently hospitalized for sepsis secondary to UTI and cellulitis of the left lower extremity and SIMRAN and was discharged on daptomycin and ceftriaxone for 2 weeks, sent to [facility]. On arrival to the ED, patient was found to be hypoxic and was put on BiPAP. Initial laboratory evaluation WBC 13.45, hemoglobin 9.5, platelet count 676, sodium 138, potassium 5.8, chloride 92, bicarb 17, BUN 114, creatinine 4.55, glucose 227, magnesium 3.0, calcium 8.5, lactic acid 0.9, ALP 144, AST 20 ALT 20, creatinine kinase 130, NT proBNP 20 840, albumin 3.0. Urinalysis consistent with pyuria, hematuria and proteinuria. Chest x-ray shows no acute cardiopulmonary process. Brain CT consistent with previous multiple remote infa rcts but no acute bleed or mass effect noted. EKG consistent with normal sinus rhythm with ventricular rate of 84 bpm, DE interval 144 ms, QRS duration 102 ms, QTc [address] T wave elevation noted. Normal R wave progression noted. Infectious disease was consulted. Nephrology was consulted. Patient is started on IV daptomycin and ceftriaxone. At the time of interview, patient is currently on BiPAP with a setting of 12/6 with a flow rate of 10 and oxygen at 30%. 01/16/2025: Patient seen and examined at the bedside. Patient continues to be on BiPAP. Patient is awake but not alert and oriented to time place and person. Lab work today shows WBC 7.82, hemoglobin 8.1, hematocrit 26.3, MCV 91.3, platelet count 581, sodium 129, potassium 5.2, BUN 20, creatinine 5.10, hemoglobin A1c 8.5, calcium 7.9, magnesium 3.0. Urine output was 500 mL in 24 hours. Patient to undergo hemodialysis today and tomorrow. Physical examination: Vital signs reviewed General: non toxic, no distress, appears at stated age, obese Derm: Multiple chronic lesions on bilateral extremities, legs wrapped Head: atraumatic, normocephalic, symmetric Eyes: EOMI, no lid lag, anicteric sclera, pupils equal round reactive to light ENT: Nose and ears atraumatic, Neck: No cervical lymphadenopathy, trachea midline, supple Mouth: no lip lesion, mucus membranes moist Cardiovascular: S1S2 reg, no murmur, positive dorsalis pedis pulse bilateral, 3+ lower extremity pitting edema Lungs: CTA bilateral, no rhonchi, no rales, no accessory muscle use, on BiPAP Abdominal: soft, nontender to palpation, no guarding Ext: muscle strength 5 out of 5 in all 4 extremities grossly, no gross muscle atrophy, no contractures, Neuro: CN II-XI grossly intact, no gross focal neuro deficits Psych: Alert, oriented, appropriate affect Assessment/Plan: This is a 74-year-old male with a history of type 2 diabetes melitis, hyp othyroidism, hypertension, atrial fibrillation was brought to the ER via EMS [facility] for [facility] status. Case was discussed with the Emergency Room provider and decision was made to admit the patient for acute toxic metabolic encephalopathy, SIMRAN, UTI Active: #Sepsis secondary to UTI #SIMRAN secondary to ATN secondary to sepsis #Hypervolemic hyponatremia #Hyperkalemia secondary to SIMRAN #Acute toxic metabolic encephalopathy secondary to above Continue with IV Rocephin and IV daptomycin Continue with bicarb drip Infectious disease and nephrology on board, patient to undergo hemodialysis today and tomorrow Blood culture and urine culture pending Continue renal diet #Acute hypoxic respiratory failure, on BiPAP #Volume overload #HFpEF, not in exacerbation Consult pulmonology continue monitor vital signs #History of seizure disorder Consult neurology #Anemia of the chronic disease, baseline between 10-11 Low hemoglobin of 8.1 likely secondary to hemo-dilution Continue monitor hemoglobin No active bleeding Transfuse with packed RBC if hemoglobin less than 7 #Type 2 diabetes Resume Lantus 20 units subcu daily Start patient on sliding scale insulin Monitor for hypoglycemia #Generalized weakness Consult PT/OT DVT prophylaxis: Heparin subcu GI prophylaxis: None F: None E: Replete as needed N: Renal diet A: Ambulatory at baseline CODE STATUS: CODE STATUS was discussed with legal guardian over the phone. Legal guardian wants patient to be cardiopulmonary resuscitated but no mechanical intubation Discussed with: Legal guardian Anticipated discharge place: Pending clinical course Dictation was produced using [employer] dictation software. Please excuse any grammatical, word or spelling errors. Attestation I have seen and examined this patient with my resident , discussed the same with the resident/ONDINA, and agree with the dictator's assessment and plan as written Dr. Augustin yin Objective - Vital Signs Vital signs: Vital Signs Temp 97.9 F 01/16/25 12:00 Pulse 69 01/16/25 12:00 Resp 10 L 01/16/25 12:00 BP 130/65 01/16/25 12:00 Pulse Ox 97 01/16/25 12:00 FiO2 30 01/16/25 12:00 Intake & Output 01/15/25 01/16/25 01/16/25 18:59 06:59 18:59 Intake Total 960 1040 10 Output Total 300 200 Balance 660 840 10 Weight 116 kg 116 kg Intake: IV 10 Invasive Line 1 10 Intake, IV Titration 960 800 Amount Calcium Gluconate in NaCl 100 1 gm In Saline 1 100ml. bag @ 100 mls/hr IVPB ONCE ONE Rx#:[id number] DAPTOmycin 400 mg In 50 Sodium Chloride 0.9% 50 ml @ 100 mls/hr IVPB Q48H SAMANTHA Rx#:[id number] Dextrose 5% in Water 1, 500 800 000 ml @ 100 mls/hr IV . [id number] SAMANTHA with Sodium Bicarb (1 Meq/ml) 150 ml Rx#:[id number] Sodium Chloride 0.9% 1, 260 000 ml @ 75 mls/hr IV . [id number] SAMANTHA Rx#:[id number] cefTRIAXone 2 gm In 50 Sodium Chloride 0.9% 50 ml @ 100 mls/hr IVPB Q24HR SAMANTHA Rx#:[id number] Oral 240 Output: Urine 300 200 Other: Voiding Method Indwelling Catheter Indwelling Catheter Indwelling Catheter - Labs CBC & Chem 7: 01/16/25 06:03 01/16/25 06:03 Labs: Abnormal Lab Results - Last 24 Hours (Table) 01/15/25 01/15/25 01/15/25 Range/Units 15:21 20:10 20:20 RBC (4.40-5.60) 10*6/uL Hgb (13.0-17.0) g/dL Hct (39.6-50.0) % MCHC (32.0-37.0) g/dL Plt Count (140-440) 10*3/uL MPV (9.5-12.2) fL Eosinophils # (0.04-0.35) 10*3/uL ABG pH 7.26 L (7.35-7.45) ABG pCO2 49 H (35-45) mmHg ABG O2 Saturation 97.4 H (94-97) % Hemoglobin 9.2 L (13.0-17.5) gm/dL Sodium (137-145) mmol/L Potassium 5.3 H (3.5-5.1) mmol/L Chloride (98-107) mmol/L BUN (9-20) mg/dL Creatinine (0.66-1.25) mg/dL Glucose (74-99) mg/dL POC Glucose (mg/dL) 151 H (70-110) mg/dL Hemoglobin A1c (<=6.0) % Calcium (8.4-10.2) mg/dL Magnesium (1.6-2.3) mg/dL 01/16/25 01/16/25 01/16/25 Range/Units 03:12 05:52 06:03 RBC (4.40-5.60) 10*6/uL Hgb (13.0-17.0) g/dL Hct (39.6-50.0) % MCHC (32.0-37.0) g/dL Plt Count (140-440) 10*3/uL MPV (9.5-12.2) fL Eosinophils # (0.04-0.35) 10*3/uL ABG pH (7.35-7.45) ABG pCO2 (35-45) mmHg ABG O2 Saturation (94-97) % Hemoglobin (13.0-17.5) gm/dL Sodium (137-145) mmol/L Potassium (3.5-5.1) mmol/L Chloride (98-107) mmol/L BUN (9-20) mg/dL Creatinine (0.66-1.25) mg/dL Glucose (74-99) mg/dL POC Glucose (mg/dL) 139 H 157 H (70-110) mg/dL Hemoglobin A1c 8.5 H (<=6.0) % Calcium (8.4-10.2) mg/dL Magnesium (1.6-2.3) mg/dL 01/16/25 01/16/25 01/16/25 Range/Units 06:03 06:03 11:26 RBC 2.88 L (4.40-5.60) 10*6/uL Hgb 8.1 L D (13.0-17.0) g/dL Hct 26.3 L (39.6-50.0) % MCHC 30.8 L (32.0-37.0) g/dL Plt Count 581 H (140-440) 10*3/uL MPV 9.4 L (9.5-12.2) fL Eosinophils # 0.01 L (0.04-0.35) 10*3/uL ABG pH (7.35-7.45) ABG pCO2 (35-45) mmHg ABG O2 Saturation (94-97) % Hemoglobin (13.0-17.5) gm/dL Sodium 129 L (137-145) mmol/L Potassium 5.2 H (3.5-5.1) mmol/L Chloride 94 L (98-107) mmol/L BUN 120 H* (9-20) mg/dL Creatinine 5.10 H (0.66-1.25) mg/dL Glucose 135 H (74-99) mg/dL POC Glucose (mg/dL) 152 H (70-110) mg/dL Hemoglobin A1c (<=6.0) % Calcium 7.9 L (8.4-10.2) mg/dL Magnesium 3.0 H (1.6-2.3) mg/dL Microbiology - Last 24 Hours (Table) 01/14/25 10:14 Blood Culture - Preliminary Blood
[2025-01-16 16:43] LABS: Glucose,Whole Blood 118 mg/dL (70-110)
[2025-01-16 16:59] LABS: Hepatitis B Surface Antigen Nonreactive (Nonreactive)
[2025-01-16 17:13] LABS: Hepatitis B Surface AB- Quant 3.5 mIU/mL
--- NOTE | 2025-01-16 17:32 | P.CNNES ---
History of Present Illness Consult date: 01/16/25 Requesting physician: Jose Alfredo Boyce Reason for Consult: ams, hx seizure History of Present Illness: This is a 74-year-old gentleman who presents from retirement to the hospital because of altered mental status. History is obtained from medical records. Seems the patient has chronic kidney insufficiency but it is severely worse. There is a concern the patient has a history of seizure which was not resumed and he has altered mental status. Today the patient had. Hemodialysis catheter placed. No seizure-like activity was noted by nursing staff or primary team. Seems his it seems that the patient is on Depakote 125 mg twice daily. He is also on gabapentin 300 mg 3 times daily which is for neuropathy as well as a weak antiseizure medication. Some of the workup during this hospital visit consisted of: Creatinine during this admission is as high as 5.10 and at baseline it is between 1-3. BUN is as high as 120 and is trending up. Sodium is 128 and currently is 129 I reviewed the rest of the lab workup Urine analysis seems suggestive of acute urinary tract infection CT of the head is reported as no acute bleed or mass effect. Multiple remote infarct as described above. I personally reviewed the CT and I agree with there is no acute process. He does have old strokes. Review of Systems Limited but as per HPI. Past Medical History Past Medical History: Atrial Fibrillation, Heart Failure, Hyperlipidemia, Hypertension, Renal Disease, Syncope Additional Past Medical History / Comment(s): anemia, UTI, Hypothyroid, depression, dysphagia History of Any Multi-Drug Resistant Organisms: None Reported Date of last positivie culture/infection: 01/02/25 MDRO Source:: rt 1st toe Additional Past Surgical History / Comment(s): unknown Past Anesthesia/Blood Transfusion Reactions: No Reported Reaction Past Psychological History: No Psychological Hx Reported Smoking Status: Unknown if ever smoked Past Alcohol Use History: None Reported Past Drug Use History: None Reported - Past Family History Father History Unknown: Yes Mother History Unknown: Yes Medications and Allergies Home Medications Medication Instructions Recorded Confirmed Type Aspirin [Dent Aspirin EC] 81 mg PO HS 12/24/18 01/14/25 History Atorvastatin [Lipitor] 20 mg PO HS@199912/24/18 01/14/25 History Cholecalciferol [Vitamin D3 (25 75 mcg PO DAILY 01/13/23 01/14/25 History Mcg = 1000 Iu)] Ferrous Sulfate [Iron (65 MG 325 mg PO HS 01/13/23 01/14/25 History Elemental)] Lactulose 20 gm PO DAILY 01/13/23 01/14/25 History Magnesium Oxide [Magox 400] 400 mg PO HS 01/13/23 01/14/25 History Melatonin 3 mg PO HS 01/13/23 01/14/25 History DULoxetine HCL [Cymbalta] 60 mg PO DAILY@0700 12/29/24 01/14/25 History Divalproex Sprinkle [Depakote 125 mg PO BID@0700,1600 12/29/24 01/14/25 History Sprinkle] Docusate [Colace] 100 mg PO BID 12/29/24 01/14/25 History Gabapentin [Neurontin] 300 mg PO TID@0700,1300,1900 12/29/24 01/14/25 History Icy Hot Advanced Relief 7.5% Patch 1 patch TRANSDERM DAILY@0700 12/29/24 01/14/25 History Ipratropium-Albuterol Nebulize 3 ml INHALATION RT-Q4H PRN 12/29/24 01/14/25 History [Duoneb 0.5 mg-3 mg/3 ml Soln] Levothyroxine Sodium [Synthroid] 88 mcg PO DAILY@0500 12/29/24 01/14/25 History Montelukast [Singulair] 10 mg PO HS@1900 12/29/24 01/14/25 History Naloxone HCl 0.4 mg SQ DIRECTED PRN 12/29/24 01/14/25 History Naloxone HCl 4 mg NASAL DIRECTED PRN 12/29/24 01/14/25 History Furosemide [Lasix] 40 mg PO DAILY #0 01/09/25 01/14/25 Rx Nystatin 100,000 Unit/gm Powd 1 applic TOPICAL BID each 01/09/25 01/14/25 Rx [Mycostatin Powder] Sodium Bicarbonate Tab 650 mg PO BID tab 01/09/25 01/14/25 Rx cefTRIAXone [Rocephin] 2 gm IVPB Q24H 14 Days #14 each 01/09/25 01/14/25 Rx oxyCODONE-APAP 10-325MG [Percocet 1 tab PO Q4H #6 tab 01/09/25 01/14/25 Rx 10-325 mg] 0.9 % Sodium Chloride [Sodium 10 ml IV QID 01/14/25 01/14/25 History Chloride Flush] Acetaminophen [Tylenol Arthritis] 650 mg PO Q6H PRN 01/14/25 01/14/25 History Ascorbic Acid [Vitamin C] 500 mg PO DAILY 01/14/25 01/14/25 History Brimonidine Tartrate [Alphagan P 1 drops BOTH EYES BID 01/14/25 01/14/25 History 0.2% Ophth Soln] DAPTOmycin [Cubicin] 400 mg IVPB DAILY@1300 01/14/25 01/14/25 History Fluticasone Propion/Salmeterol 1 puff INHALATION RT-BID 01/14/25 01/14/25 His tory [Fluticasone-Salmeterol 250-50] Heparin Sod (Pork) Lock Flush 3 ml IV BID@1300,2100 01/14/25 01/14/25 History Intravenous Solution 10unit/Ml Heparin Sodium,Porcine (1 ml) 5,000 unit SQ Q8H 01/14/25 01/14/25 History [Heparin Sodium] INSULIN LISPRO (HumaLOG) [HumaLOG] See Protocol SQ ACHS 01/14/25 01/14/25 History Insulin Glargine,Hum.rec.anlog 20 units SQ DAILY@0600 01/14/25 01/14/25 History [Lantus Solostar Pen] metFORMIN HCL [Glucophage] 500 mg PO BID@0700,1600 01/14/25 01/14/25 History Allergies Allergy/AdvReac Type Severity Reaction Status Date / Time No Known Allergies Allergy Verified 01/14/25 13:12 Physical Examination - Vital Signs Vital Signs: Vital Signs Temp Pulse Resp BP Pulse Ox FiO2 01/16/25 16:32 30 01/16/25 16:28 97.7 F 01/16/25 16:20 98 F 61 10 L 120/67 01/16/25 15:51 96.8 F L 66 10 L 120/66 97 30 01/16/25 12:00 97.9 F 69 10 L 130/65 97 30 01/16/25 11:15 30 01/16/25 08:36 98.3 F 71 10 L 129/69 95 30 01/16/25 08:03 30 01/16/25 04:28 30 01/16/25 03:17 98.0 F 74 10 L 119/71 97 30 01/16/25 01:08 76 12 01/15/25 23:27 98.1 F 76 10 L 130/69 95 30 01/15/25 23:26 30 01/15/25 20:00 62 10 L 01/15/25 19:35 98.2 F 62 9 L 131/71 100 30 01/15/25 19:22 30 Intake and Output 01/16/25 01/16/25 01/16/25 06:59 14:59 22:59 Intake Total 800 10 500 Output Total 200 1825 Balance 600 10 -1325 Intake: IV 10 Invasive Line 1 10 Intake, IV Titration 800 Amount Dextrose 5% in Water 1, 800 000 ml @ 50 mls/hr IV . Q23H SAMANTHA with Sodium Bicarb (1 Meq/ml) 150 ml Rx#:[id number] Hemodialysis 500 Output: Urine 200 325 Hemodialysis 1000 Hemodialysis Net Amount 500 Other: Voiding Method Indwelling Catheter Indwelling Catheter Weight 116 kg General: Lying in bed and does not appear in acute distress. Lung: Is on BiPAP. Neuro: Very limited Is severely encephalopathic but is awakeable to voice. Follows few simple commands (squeezing hand to command, closing eyes and attempting to smile). Pupils are round, equal, 3mm and reactive to light. Otherwise rest hard to assess. Results - Laboratory Findings CBC and BMP: 01/16/25 06:03 01/16/25 06:03 Abnormal Lab Findings: Abnormal Labs 01/14/25 01/14/25 01/14/25 10:01 10:01 10:01 WBC 13.47 H RBC 3.40 L Hgb 9.5 L Hct 30.3 L MCHC 31.4 L Plt Count 676 H MPV Immature Gran # 0.09 H Neutrophils # 10.45 H Monocytes # 1.01 H Eosinophils # 0.01 L ABG pH ABG pCO2 ABG O2 Saturation VBG HCO3 21 L Hemoglobin Sodium 128 L Potassium 5.8 H Chloride 92 L Carbon Dioxide 17 L BUN 114 H* Creatinine 4.77 H Glucose 127 H POC Glucose (mg/dL) Hemoglobin A1c Calcium Magnesium 3.0 H Alkaline Phosphatase 144 H Total Protein 8.3 H Albumin 3.0 L Urine Protein Urine Blood Ur Leukocyte Esterase Urine RBC Urine WBC Urine WBC Clumps Amorphous Sediment Urine Bacteria Urine Mucus 01/14/25 01/15/25 01/15/25 10:56 06:22 06:22 WBC 11.83 H RBC 3.56 L Hgb 10.2 L Hct 32.7 L MCHC 31.2 L Plt Count 624 H MPV Immature Gran # 0.08 H Neutrophils # 8.81 H Monocytes # 1.26 H Eosinophils # 0.02 L ABG pH ABG pCO2 ABG O2 Saturation VBG HCO3 Hemoglobin Sodium 129 L Potassium 6.1 H* Chloride 95 L Carbon Dioxide 16 L BUN 117 H* Creatinine 5.08 H Glucose POC Glucose (mg/dL) Hemoglobin A1c Calcium Magnesium Alkaline Phosphatase 136 H Total Protein Albumin 2.8 L Urine Protein 3+ H Urine Blood Large H Ur Leukocyte Esterase Large H Urine RBC >182 H Urine WBC >182 H Urine WBC Clumps Many H Amorphous Sediment Occasional H Urine Bacteria Occasional H Urine Mucus Occasional H 01/15/25 01/15/25 01/15/25 06:35 12:58 15:21 WBC RBC Hgb Hct MCHC Plt Count MPV Immature Gran # Neutrophils # Monocytes # Eosinophils # ABG pH 7.26 L ABG pCO2 49 H ABG O2 Saturation 97.4 H VBG HCO3 Hemoglobin 9.2 L Sodium Potassium 5.6 H Chloride Carbon Dioxide BUN Creatinine Glucose POC Glucose (mg/dL) 120 H Hemoglobin A1c Calcium Magnesium Alkaline Phosphatase Total Protein Albumin Urine Protein Urine Blood Ur Leukocyte Esterase Urine RBC Urine WBC Urine WBC Clumps Amorphous Sediment Urine Bacteria Urine Mucus 01/15/25 01/15/25 01/16/25 20:10 20:20 03:12 WBC RBC Hgb Hct MCHC Plt Count MPV Immature Gran # Neutrophils # Monocytes # Eosinophils # ABG pH ABG pCO2 ABG O2 Saturation VBG HCO3 Hemoglobin Sodium Potassium 5.3 H Chloride Carbon Dioxide BUN Creatinine Glucose POC Glucose (mg/dL) 151 H 139 H Hemoglobin A1c Calcium Magnesium Alkaline Phosphatase Total Protein Albumin Urine Protein Urine Blood Ur Leukocyte Esterase Urine RBC Urine WBC Urine WBC Clumps Amorphous Sediment Urine Bacteria Urine Mucus 01/16/25 01/16/25 01/16/25 05:52 06:03 06:03 WBC RBC Hgb Hct MCHC Plt Count MPV Immature Gran # Neutrophils # Monocytes # Eosinophils # ABG pH ABG pCO2 ABG O2 Saturation VBG HCO3 Hemoglobin Sodium 129 L Potassium 5.2 H Chloride 94 L Carbon Dioxide BUN 120 H* Creatinine 5.10 H Glucose 135 H POC Glucose (mg/dL) 157 H Hemoglobin A1c 8.5 H Calcium 7.9 L Magnesium 3.0 H Alkaline Phosphatase Total Protein Albumin Urine Protein Urine Blood Ur Leukocyte Esterase Urine RBC Urine WBC Urine WBC Clumps Amorphous Sediment Urine Bacteria Urine Mucus 01/16/25 01/16/25 01/16/25 06:03 11:26 16:41 WBC RBC 2.88 L Hgb 8.1 L D Hct 26.3 L MCHC 30.8 L Plt Count 581 H MPV 9.4 L Immature Gran # Neutrophils # Monocytes # Eosinophils # 0.01 L ABG pH ABG pCO2 ABG O2 Saturation VBG HCO3 Hemoglobin Sodium Potassium Chloride Carbon Dioxide BUN Creatinine Glucose POC Glucose (mg/dL) 152 H 118 H Hemoglobin A1c Calcium Magnesium Alkaline Phosphatase Total Protein Albumin Urine Protein Urine Blood Ur Leukocyte Esterase Urine RBC Urine WBC Urine WBC Clumps Amorphous Sediment Urine Bacteria Urine Mucus Assessment and Plan Assessment: This is a 74-year-old gentleman with history of seizure who presents emergency department because of altered mental status. He has acute kidney injury with hyponatremia and today he had temporary dialysis catheter placement. Patient is in respiratory distress and he is on BiPAP Altered mental status due toxic-metabolic encephalopathy. Patient has acute kidney injury, hyponatremia, also has hypoxic encephalopathy Acute on chronic kidney injury status post temporary catheter dialysis today Probable acute UTI Hyponatremia Acute respiratory distress is on BiPAP History of seizures History of strokes Plan: I ordered a routine EEG Patient is resumed on his home medication of Depakote and he is on gabapentin. Pulmonary team is on board Nephrology team is on board ID team is on board Will defer the rest of the medical management to primary and other specialist Condition is very guarded. Thank you for the consultation Time with Patient: Greater than 30
[2025-01-16 19:54] LABS: Glucose,Whole Blood 131 mg/dL (70-110)
[2025-01-16] MEDS: IPRATROPIUM-ALBUTEROL 3 ML NEB INHALATION PRN (20:34)
[2025-01-17 06:31] LABS: Glucose,Whole Blood 132 mg/dL (70-110)
[2025-01-17 07:18] LABS: Basophils # (A) 0.01 10*3/uL (0.00-0.10); Basophils % (A) 0.1 %; HCT 27.2 % (39.6-50.0); HGB 8.5 g/dL (13.0-17.0); Lymphocytes # (A) 1.84 10*3/uL (0.90-5.00); Lymphocytes % (A) 20.3 %; MCH 27.8 pg (27.0-32.0); MCHC 31.3 g/dL (32.0-37.0); MCV 88.9 fL (80.0-97.0); Monocytes # (A) 0.97 10*3/uL (0.20-1.00); Monocytes % (A) 10.7 %; Neutrophils # (A) 6.14 10*3/uL (1.80-7.70); Neutrophils % (A) 67.8 %; Platelet Count 509 10*3/uL (140-440); RBC 3.06 10*6/uL (4.40-5.60); RDW 16.6 % (11.5-14.5); WBC 9.06 10*3/uL (4.50-10.00)
[2025-01-17 07:43] LABS: African American GFR (CKD) 14 (>60 ml/min/1.73 sqM); Anion Gap 12 mmol/L; Calcium 8.1 mg/dL (8.4-10.2); Carbon Dioxide 26 mmol/L (22-30); Chloride 94 mmol/L (98-107); Glucose 131 mg/dL (74-99); Magnesium 2.9 mg/dL (1.6-2.3); Non-African American GFR(CKD) 12 (>60 ml/min/1.73 sqM); Potassium 4.5 mmol/L (3.5-5.1); Sodium 132 mmol/L (137-145)
[2025-01-17 07:51] LABS: Blood Urea Nitrogen 101 mg/dL (9-20)
--- NOTE | 2025-01-17 10:13 | P.PN ---
Subjective Progress Note Date: 01/17/25 Principal diagnosis: Acute kidney injury need for hemodialysis Patient is seen and examined today as a follow-up. He remains with BiPAP on. We placed a temporary HD catheter in the right groin yesterday. He underwent hemodialysis yesterday. He does appear little more alert today. No complications with temporary HD catheter. Objective - Vital Signs Vital signs: Vital Signs Temp 98.9 F 01/17/25 04:00 Pulse 93 01/17/25 09:52 Resp 12 01/17/25 09:52 BP 144/72 01/17/25 09:52 Pulse Ox 96 01/17/25 09:52 FiO2 30 01/17/25 09:52 Intake & Output 01/16/25 01/17/25 01/17/25 18:59 06:59 18:59 Intake Total 510 220 Output Total 1825 100 Balance -1315 120 Weight 120 kg Intake: IV 10 20 Invasive Line 1 10 20 Intake, IV Titration 200 Amount Dextrose 5% in Water 1, 200 000 ml @ 50 mls/hr IV . Q23H SAMANTHA with Sodium Bicarb (1 Meq/ml) 150 ml Rx#:[id number] Hemodialysis 500 Output: Urine 325 100 Uretheral ([place]) 100 Hemodialysis 1000 Hemodialysis Net Amount 500 Other: Voiding Method Indwelling Catheter Indwelling Catheter - Exam General appearance: The patient is awake and alert to name. On BiPAP. Obese HET: Head is normocephalic and atraumatic. Neck: Supple. Abdomen: Soft, nontender, nondistended. Extremities: Normal skin color and turgor. Right groin with temporary HD catheter in place without any bleeding. Neurological: Awake and alert to name. - Labs CBC & Chem 7: 01/17/25 06:59 01/17/25 06:59 Labs: Abnormal Lab Results - Last 24 Hours (Table) 01/16/25 01/16/25 01/16/25 Range/Units 06:03 06:03 11:26 RBC 2.88 L (4.40-5.60) 10*6/uL Hgb 8.1 L D (13.0-17.0) g/dL Hct 26.3 L (39.6-50.0) % MCHC 30.8 L (32.0-37.0) g/dL Plt Count 581 H (140-440) 10*3/uL MPV 9.4 L (9.5-12.2) fL Immature Gran # (0.00-0.04) 10*3/uL Eosinophils # 0.01 L (0.04-0.35) 10*3/uL Sodium (137-145) mmol/L Chloride (98-107) mmol/L BUN (9-20) mg/dL Creatinine (0.66-1.25) mg/dL Glucose (74-99) mg/dL POC Glucose (mg/dL) 152 H (70-110) mg/dL Hemoglobin A1c 8.5 H (<=6.0) % Calcium (8.4-10.2) mg/dL Magnesium (1.6-2.3) mg/dL 01/16/25 01/16/25 01/17/25 Range/Units 16:41 19:53 06:30 RBC (4.40-5.60) 10*6/uL Hgb (13.0-17.0) g/dL Hct (39.6-50.0) % MCHC (32.0-37.0) g/dL Plt Count (140-440) 10*3/uL MPV (9.5-12.2) fL Immature Gran # (0.00-0.04) 10*3/uL Eosinophils # (0.04-0.35) 10*3/uL Sodium (137-145) mmol/L Chloride (98-107) mmol/L BUN (9-20) mg/dL Creatinine (0.66-1.25) mg/dL Glucose (74-99) mg/dL POC Glucose (mg/dL) 118 H 131 H 132 H (70-110) mg/dL Hemoglobin A1c (<=6.0) % Calcium (8.4-10.2) mg/dL Magnesium (1.6-2.3) mg/dL 01/17/25 01/17/25 Range/Units 06:59 06:59 RBC 3.06 L (4.40-5.60) 10*6/uL Hgb 8.5 L (13.0-17.0) g/dL Hct 27.2 L (39.6-50.0) % MCHC 31.3 L (32.0-37.0) g/dL Plt Count 509 H (140-440) 10*3/uL MPV 9.0 L (9.5-12.2) fL Immature Gran # 0.10 H (0.00-0.04) 10*3/uL Eosinophils # 0.00 L (0.04-0.35) 10*3/uL Sodium 132 L (137-145) mmol/L Chloride 94 L (98-107) mmol/L BUN 101 H* (9-20) mg/dL Creatinine 4.62 H (0.66-1.25) mg/dL Glucose 131 H (74-99) mg/dL POC Glucose (mg/dL) (70-110) mg/dL Hemoglobin A1c (<=6.0) % Calcium 8.1 L (8.4-10.2) mg/dL Magnesium 2.9 H (1.6-2.3) mg/dL Microbiology - Last 24 Hours (Table) 01/15/25 17:19 Urine Culture - Final Urine,Catheterized 01/14/25 10:14 Blood Culture - Preliminary Blood Assessment and Plan Assessment: 1. Acute kidney injury requiring renal replacement therapy status post temporary HD catheter placement 2. Chronic kidney disease 3. Acute metabolic encephalopathy 4. Sepsis secondary to UTI and he has cellulitis of lower extremities 5. Hypoxic on BiPAP Plan: 1. Hemodialysis per recommendations from nephrology 2. We will be on standby if further needed for permacath or any complications with temp cath Thank you for this consultation. The impression and plan of care has been dictated as directed. Dr. Samantha Green performed a history and examination of this patient, discussed the same with the dictator. I agree with the dictator's note ,documented as a scribe. Any additional findings or plans will be noted.
--- NOTE | 2025-01-17 10:47 | P.PN ---
Subjective Patient is seen in follow-up for acute kidney injury on chronic kidney disease. No improvement in renal function. Has [place] catheter. Urine output 400-500 cc in the last 24 hours. Acidosis improved with bicarb drip. On BiPAP. Poor historian. Tolerating dialysis well. Vital signs are stable. General: No acute distress. HEENT: On BiPAP. LUNGS: No audible rhonchi or wheezes. HEART: Rate and Rhythm are regular. ABDOMEN: No distention. EXTREMITITES: Chronic changes noted. Trace edema. Wrapped. Objective - Vital Signs Vital signs: Vital Signs Temp 98.9 F 01/17/25 04:00 Pulse 93 01/17/25 09:52 Resp 12 01/17/25 09:52 BP 144/72 01/17/25 09:52 Pulse Ox 96 01/17/25 09:52 FiO2 30 01/17/25 09:52 Intake & Output 01/16/25 01/17/25 01/17/25 18:59 06:59 18:59 Intake Total 510 220 Output Total 1825 100 Balance -1315 120 Weight 120 kg Intake: IV 10 20 Invasive Line 1 10 20 Intake, IV Titration 200 Amount Dextrose 5% in Water 1, 200 000 ml @ 50 mls/hr IV . Q23H SAMANTHA with Sodium Bicarb (1 Meq/ml) 150 ml Rx#:[id number] Hemodialysis 500 Output: Urine 325 100 Uretheral ([place]) 100 Hemodialysis 1000 Hemodialysis Net Amount 500 Other: Voiding Method Indwelling Catheter Indwelling Catheter Indwelling Catheter - Labs CBC & Chem 7: 01/17/25 06:59 01/17/25 06:59 Labs: Abnormal Lab Results - Last 24 Hours (Table) 01/16/25 01/16/25 01/16/25 Range/Units 06:03 11:26 16:41 RBC 2.88 L (4.40-5.60) 10*6/uL Hgb 8.1 L D (13.0-17.0) g/dL Hct 26.3 L (39.6-50.0) % MCHC 30.8 L (32.0-37.0) g/dL Plt Count 581 H (140-440) 10*3/uL MPV 9.4 L (9.5-12.2) fL Immature Gran # (0.00-0.04) 10*3/uL Eosinophils # 0.01 L (0.04-0.35) 10*3/uL Sodium (137-145) mmol/L Chloride (98-107) mmol/L BUN (9-20) mg/dL Creatinine (0.66-1.25) mg/dL Glucose (74-99) mg/dL POC Glucose (mg/dL) 152 H 118 H (70-110) mg/dL Calcium (8.4-10.2) mg/dL Magnesium (1.6-2.3) mg/dL 01/16/25 01/17/25 01/17/25 Range/Units 19:53 06:30 06:59 RBC 3.06 L (4.40-5.60) 10*6/uL Hgb 8.5 L (13.0-17.0) g/dL Hct 27.2 L (39.6-50.0) % MCHC 31.3 L (32.0-37.0) g/dL Plt Count 509 H (140-440) 10*3/uL MPV 9.0 L (9.5-12.2) fL Immature Gran # 0.10 H (0.00-0.04) 10*3/uL Eosinophils # 0.00 L (0.04-0.35) 10*3/uL Sodium (137-145) mmol/L Chloride (98-107) mmol/L BUN (9-20) mg/dL Creatinine (0.66-1.25) mg/dL Glucose (74-99) mg/dL POC Glucose (mg/dL) 131 H 132 H (70-110) mg/dL Calcium (8.4-10.2) mg/dL Magnesium (1.6-2.3) mg/dL 01/17/25 Range/Units 06:59 RBC (4.40-5.60) 10*6/uL Hgb (13.0-17.0) g/dL Hct (39.6-50.0) % MCHC (32.0-37.0) g/dL Plt Count (140-440) 10*3/uL MPV (9.5-12.2) fL Immature Gran # (0.00-0.04) 10*3/uL Eosinophils # (0.04-0.35) 10*3/uL Sodium 132 L (137-145) mmol/L Chloride 94 L (98-107) mmol/L BUN 101 H* (9-20) mg/dL Creatinine 4.62 H (0.66-1.25) mg/dL Glucose 131 H (74-99) mg/dL POC Glucose (mg/dL) (70-110) mg/dL Calcium 8.1 L (8.4-10.2) mg/dL Magnesium 2.9 H (1.6-2.3) mg/dL Microbiology - Last 24 Hours (Table) 01/15/25 17:19 Urine Culture - Final Urine,Catheterized 01/14/25 10:14 Blood Culture - Preliminary Blood Assessment and Plan Plan: Assessment: 1. Acute kidney injury secondary to ATN secondary to severe sepsis. Creatinine 5.1 dated January 16, 2025. Started on dialysis January 16, 2025. Kidney ultrasound from December 2024 showed no evidence of hydronephrosis. 2. Chronic kidney disease stage IIIa with baseline creatinine 1.2-1.4. 3. Chronic diastolic CHF and moderate aortic stenosis. 4. Hyperkalemia secondary to acute kidney injury and acidosis. Better. 5. Metabolic acidosis secondary to acute kidney injury and IV fluids. Also on metformin. Improved with bicarb drip. 6. Hypovolemic hyponatremia. Stable. 7. Severe sepsis secondary to UTI. Also had recent cellulitis. On antibiotics. 8. Anemia due to acute illness and chronic kidney disease. Plan: Currently seen while undergoing hemodialysis. Another treatment tomorrow. Hep-Lock IV fluids. Maintain Ast[place]a catheter. Metformin discontinued. Avoid nephrotoxins. Monitor for renal recovery. Repeat chest x-ray. Check phosphorus level. Add Aranesp.
[2025-01-17 10:59] LABS: Glucose,Whole Blood 115 mg/dL (70-110)
--- NOTE | 2025-01-17 11:06 | P.PN ---
Subjective Progress Note Date: 01/17/25 Hospital course: Patient is a 74-year-old male with a history of type 2 diabetes melitis, hypothyroidism, hypertension, atrial fibrillation was brought to the ER via EMS from custodial for altered mental status. History is obtained by reviewing ER and EMS notes. Patient was recently hospitalized for sepsis secondary to UTI and cellulitis of the left lower extremity and SIMRAN and was discharged on dap tomycin and ceftriaxone for 2 weeks, sent to custodial for rehabilitation. On arrival to the ED, patient was found to be hypoxic and was put on BiPAP. Initial laboratory evaluation WBC 13.45, hemoglobin 9.5, platelet count 676, sodium 138, potassium 5.8, chloride 92, bicarb 17, BUN 114, creatinine 4.55, glucose 227, magnesium 3.0, calcium 8.5, lactic acid 0.9, ALP 144, AST 20 ALT 20, creatinine kinase 130, NT proBNP 20 840, albumin 3.0. Urinalysis consistent with pyuria, hematuria and proteinuria. Chest x-ray shows no acute cardiopulmonary process. 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 EKG consistent with normal sinus rhythm with ventricular rate of 84 bpm, UT interval 144 ms, QRS duration 102 ms, QTc [address] T wave elevation noted. Normal R wave progression noted. Infectious disease was consulted. Nephrology was consulted. Patient is started on IV daptomycin and ceftriaxone. At the time of interview, patient is currently on BiPAP with a setting of 12/6 with a flow rate of 10 and oxygen at 30%. 01/16/2025: Patient seen and examined at the bedside. Patient continues to be on BiPAP. Patient is awake but not alert and oriented to time place and person. Lab work today shows WBC 7.82, hemoglobin 8.1, hematocrit 26.3, MCV 91.3, platelet count 581, sodium 129, potassium 5.2, BUN 20, creatinine 5.10, hemoglobin A1c 8.5, calcium 7.9, magnesium 3.0. Urine output was 500 mL in 24 hours. Patient to un dergo hemodialysis today and tomorrow. 01/17/2025 Patient seen and examined at side. Patient currently undergoing hemodialysis with a goal of 0.5 L. Hemodialysis yesterday with output of 0.5 L. Patient states but more alert and awake today. Follows verbal command. Continues to be on BiPAP. Urine cultures negative. Blood culture preliminary report shows no bacterial growth. WBC 9.06, hemoglobin 8.5, sodium 132, potassium 12.5, BUN 101, creatinine 4.62, calcium 8.1, magnesium 2.9. Physical examination: Vital signs reviewed General: non toxic, no distress, appears at stated age, obese Derm: Multiple chronic lesions on bilateral extremities, legs wrapped Head: atraumatic, normocephalic, symmetric Eyes: EOMI, no lid lag, anicteric sclera, pupils equal round reactive to light ENT: Nose and ears atraumatic, Neck: No cervical lymphadenopathy, trachea midline, supple Mouth: no lip lesion, mucus membranes moist Cardiovascular: S1S2 reg, no murmur, positive dorsalis pedis pulse bilateral, 3+ lower extremity pitting edema Lungs: CTA bilateral, no rhonchi, no rales, no accessory muscle use, on BiPAP Abdominal: soft, nontender to palpation, no guarding Ext: muscle strength 5 out of 5 in all 4 extremities grossly, no gross muscle atrophy, no contractures, Neuro: CN II-XI grossly intact, no gross focal neuro deficits Psych: Alert, oriented, appropriate affect Assessment/Plan: This is a 74-year-old male with a history of type 2 diabetes melitis, hypothyroidism, hypertension, atrial fibrillation was brought to the ER via EMS from custodial for altered mental status. Case was discussed with the Emergency Room provider and decision was made to admit the patient for acute toxic metabolic encephalopathy, SIMRAN, UTI Active: #Sepsis secondary to UTI #SIMRAN secondary to ATN secondary to sepsis #Hypervolemic hyponatremia #Hyperkalemia secondary to SIMRAN #Hypermagnesemia #Acute toxic metabolic encephalopathy secondary to above Continue with IV Rocephin and IV daptomycin Infectious disease and nephrology on board, patient currently undergoing hemodialysis Blood culture urine culture negative Continue renal diet add Aranesp #Acute hypoxic respiratory failure, on BiPAP #Volume overload #HFpEF, not in exacerbation Pulmonology on board continue monitor vital signs Repeat chest x-ray this afternoon #History of seizure disorder Neurology on board, EEG today Continue Depakote 125 mg p.o. twice daily #Anemia of the chronic disease, baseline between 10-11 Low hemoglobin of 8.1 likely secondary to hemo-dilution Continue monitor hemoglobin No active bleeding Transfuse with packed RBC if hemoglobin less than 7 #Type 2 diabetes Resume Lantus 20 units subcu daily Start patient on sliding scale insulin Monitor for hypoglycemia #Generalized weakness Consult PT/OT DVT prophylaxis: Heparin subcu GI prophylaxis: None F: None E: Replete as needed N: Renal diet A: Ambulatory at baseline CODE STATUS: CODE STATUS was discussed with legal guardian over the phone. Legal guardian wants patient to be cardiopulmonary resuscitated but no mechanical intubation Discussed with: Legal guardian Anticipated discharge place: Pending clinical course Attestation I have seen and examined this patient with my resident , discussed the same with the resident/ONDINA, and agree with the dictator's assessment and plan as written Dr. Augustin yin Objective - Vital Signs Vital signs: Vital Signs Temp 98.9 F 01/17/25 04:00 Pulse 73 01/17/25 04:00 Resp 13 01/17/25 04:00 BP 124/51 01/17/25 04:00 Pulse Ox 94 L 01/17/25 04:00 FiO2 30 01/17/25 04:21 Intake & Output 01/16/25 01/17/25 01/17/25 18:59 06:59 18:59 Intake Total 510 220 Output Total 1825 100 Balance -1315 120 Weight 120 kg Intake: IV 10 20 Invasive Line 1 10 20 Intake, IV Titration 200 Amount Dextrose 5% in Water 1, 200 000 ml @ 50 mls/hr IV . Q23H SAMANTHA with Sodium Bicarb (1 Meq/ml) 150 ml Rx#:[id number] Hemodialysis 500 Output: Urine 325 100 Uretheral ([place]) 100 Hemodialysis 1000 Hemodialysis Net Amount 500 Other: Voiding Method Indwelling Catheter Indwelling Catheter - Labs CBC & Chem 7: 01/18/25 05:49 01/18/25 05:49 Labs: Abnormal Lab Results - Last 24 Hours (Table) 01/16/25 01/16/25 01/16/25 Range/Units 06:03 06:03 11:26 RBC 2.88 L (4.40-5.60) 10*6/uL Hgb 8.1 L D (13.0-17.0) g/dL Hct 26.3 L (39.6-50.0) % MCHC 30.8 L (32.0-37.0) g/dL Plt Count 581 H (140-440) 10*3/uL MPV 9.4 L (9.5-12.2) fL Immature Gran # (0.00-0.04) 10*3/uL Eosinophils # 0.01 L (0.04-0.35) 10*3/uL Sodium (137-145) mmol/L Chloride (98-107) mmol/L BUN (9-20) mg/dL Creatinine (0.66-1.25) mg/dL Glucose (74-99) mg/dL POC Glucose (mg/dL) 152 H (70-110) mg/dL Hemoglobin A1c 8.5 H (<=6.0) % Calcium (8.4-10.2) mg/dL Magnesium (1.6-2.3) mg/dL 01/16/25 01/16/25 01/17/25 Range/Units 16:41 19:53 06:30 RBC (4.40-5.60) 10*6/uL Hgb (13.0-17.0) g/dL Hct (39.6-50.0) % MCHC (32.0-37.0) g/dL Plt Count (140-440) 10*3/uL MPV (9.5-12.2) fL Immature Gran # (0.00-0.04) 10*3/uL Eosinophils # (0.04-0.35) 10*3/uL Sodium (137-145) mmol/L Chloride (98-107) mmol/L BUN (9-20) mg/dL Creatinine (0.66-1.25) mg/dL Glucose (74-99) mg/dL POC Glucose (mg/dL) 118 H 131 H 132 H (70-110) mg/dL Hemoglobin A1c (<=6.0) % Calcium (8.4-10.2) mg/dL Magnesium (1.6-2.3) mg/dL 01/17/25 01/17/25 Range/Units 06:59 06:59 RBC 3.06 L (4.40-5.60) 10*6/uL Hgb 8.5 L (13.0-17.0) g/dL Hct 27.2 L (39.6-50.0) % MCHC 31.3 L (32.0-37.0) g/dL Plt Count 509 H (140-440) 10*3/uL MPV 9.0 L (9.5-12.2) fL Immature Gran # 0.10 H (0.00-0.04) 10*3/uL Eosinophils # 0.00 L (0.04-0.35) 10*3/uL Sodium 132 L (137-145) mmol/L Chloride 94 L (98-107) mmol/L BUN 101 H* (9-20) mg/dL Creatinine 4.62 H (0.66-1.25) mg/dL Glucose 131 H (74-99) mg/dL POC Glucose (mg/dL) (70-110) mg/dL Hemoglobin A1c (<=6.0) % Calcium 8.1 L (8.4-10.2) mg/dL Magnesium 2.9 H (1.6-2.3) mg/dL Microbiology - Last 24 Hours (Table) 01/14/25 10:14 Blood Culture - Preliminary Blood
[2025-01-17] MEDS: DARBEPOETIN ALFA 40 MCG/0.4 ML SYRINGE SQ SCH (12:41)
--- NOTE | 2025-01-17 13:32 | XR ---
EXAMINATION TYPE: XR chest 1V portable DATE OF EXAM: 01/17/2025 1:19 PM COMPARISON: 01/14/2025 CLINICAL INDICATION: Male, 74 years old with history of post diaplasis, fluid overload, , FINDINGS: Heart mildly enlarged. Aorta within normal limits. Mild interstitial prominence without consolidation or pleural effusion. IMPRESSION: Similar mild interstitial prominence, possible mild pulmonary vascular congestion. [facility], Workstation: [facility], 01/17/2025 1:29 PM
--- NOTE | 2025-01-17 13:40 | P.PN ---
Subjective Progress Note Date: 01/17/25 Principal diagnosis: Acute metabolic encephalopathy with sepsis and cellulitis. This is a 74-year-old white male with history of multiple medical problems, familiar to my service from previous admission, patient was brought in from the local longterm with mostly altered mental status. Upon evaluation in the ER, patient was placed on noninvasive mechanical ventilation/BiPAP at 12/6/50%, patient was noted to be hypoxic and hypercapnic as well as tachypneic. In addition the patient was noted to have leukocytosis, anemia, hyperkalemia, hyponatremia, hypercapnia, respiratory acidosis, anion gap metabolic acidosis, uremia with BUN of 117 creatinine 5.08, in addition the patient was noted to have what seems to be a urinary tract infection with pyuria and bacteriuria. The patient himself is not a great historian, when I saw him on the medical floor, patient was on BiPAP, and patient was barely responsive to deep painful stimuli. His ABG showed a pO2 of 96 pCO2 49 pH of 7.26 and this was on BiPAP 12/6/30%, increased his IPAP to 14. Patient was admitted mostly with a picture of sepsis, cellulitis, urinary tract infection, and he was already seen by infectious disease on consultation. Placed on Rocephin and daptomycin combination, cultures are pending. Again not much history could be obtained from the patient himself. I have seen this patient last on 11/21 when he was admitted to the ICU with a similar presentation, a presentation of severe sepsis, chronic cellulitis of the extremities, and urinary tract infection. At that time the patient also had acute kidney injury secondary to sepsis, acute lactic acidosis secondary to sepsis and acute non-ST elevation myocardial infarction as well as paroxysmal atrial fibrillation. Patient was seen today on 01/16/2025, slight improvement in his response to pain and arousal, but does not make any purposeful movement does not respond to verbal stimuli. Patient remains on BiPAP 18/6/30%, patient was seen by vascular surgery and apparently he may undergo dialysis catheter placement as recommended by nephrology. Labs today showed WBC count of 7.8 hemoglobin 8.1 ABG yesterday showed a pO2 of 96 pCO2 49 pH of 7.26 basic metabolic profile today showed low sodium of 129 potassium 5.2 BUN is up to 120 creatinine is up to 5.10. Patient remains on antibiotics for her presumptive sepsis from cellulitis and possibly UTI. Blood cultures have been negative so far in the last 24 hours. Patient was seen today on 01/17/2025, patient is on hemodialysis, started dialysis yesterday, patient is definitely more awake today arousable, follows verbal commands, seems to be generally weak, continues on BiPAP. Blood cultures have been negative, urine cultures have been negative. WBC count is 9 hemoglobin 8.5 electrolytes are normal BUN is 101 creatinine 4.62. Phosphorus is 9.8. Chest x-ray showed mild pulmonary vascular congestion. And prominent pulmonary vasculature with interstitial prominence. Objective - Vital Signs Vital signs: Vital Signs Temp 97.5 F L 01/17/25 12:11 Pulse 81 01/17/25 12:11 Resp 17 01/17/25 12:11 BP 134/76 01/17/25 12:11 Pulse Ox 96 01/17/25 12:11 FiO2 30 01/17/25 12:11 Intake & Output 01/16/25 01/17/25 01/17/25 18:59 06:59 18:59 Intake Total 510 220 20 Output Total 1825 100 Balance -1315 120 20 Weight 120 kg Intake: IV 10 20 20 Invasive Line 1 10 20 20 Intake, IV Titration 200 Amount Dextrose 5% in Water 1, 200 000 ml @ 50 mls/hr IV . Q23H SAMANTHA with Sodium Bicarb (1 Meq/ml) 150 ml Rx#:[id number] Hemodialysis 500 Output: Urine 325 100 Uretheral ([place]) 100 Hemodialysis 1000 Hemodialysis Net Amount 500 Other: Voiding Method Indwelling Catheter Indwelling Catheter Indwelling Catheter - Exam GENERAL: Revealed 74-year-old white male on BiPAP HEENT: PERRLA, EOMI, nonicteric, no neck masses no JVD NECK: No neck masses no stridor no JVD LUNGS: Diminished breath sounds at the bases, no crackles rhonchi or wheezes HEART: Tachycardic, normal S1-S2 audible,no murmur ABDOMEN: Obese, soft, nontender no megaly, no rebound, no guarding. EXTREMITIES: Both are wrapped with Mo wrappings, however pictures of the lower extremities are consistent with severe cellulitis/chronic and redness/erythema extending up to the mid thighs bilaterally. Neurologic: Opens eyes follows very simple instructions Psychiatric: Could not assess Skin: extensive cellulitis/both lower extremities - Labs CBC & Chem 7: 01/17/25 06:59 01/17/25 06:59 Labs: Abnormal Lab Results - Last 24 Hours (Table) 01/16/25 01/16/25 01/17/25 Range/Units 16:41 19:53 06:30 RBC (4.40-5.60) 10*6/uL Hgb (13.0-17.0) g/dL Hct (39.6-50.0) % MCHC (32.0-37.0) g/dL Plt Count (140-440) 10*3/uL MPV (9.5-12.2) fL Immature Gran # (0.00-0.04) 10*3/uL Eosinophils # (0.04-0.35) 10*3/uL Sodium (137-145) mmol/L Chloride (98-107) mmol/L BUN (9-20) mg/dL Creatinine (0.66-1.25) mg/dL Glucose (74-99) mg/dL POC Glucose (mg/dL) 118 H 131 H 132 H (70-110) mg/dL Calcium (8.4-10.2) mg/dL Phosphorus (2.5-4.5) mg/dL Magnesium (1.6-2.3) mg/dL 01/17/25 01/17/25 01/17/25 Range/Units 06:59 06:59 06:59 RBC 3.06 L (4.40-5.60) 10*6/uL Hgb 8.5 L (13.0-17.0) g/dL Hct 27.2 L (39.6-50.0) % MCHC 31.3 L (32.0-37.0) g/dL Plt Count 509 H (140-440) 10*3/uL MPV 9.0 L (9.5-12.2) fL Immature Gran # 0.10 H (0.00-0.04) 10*3/uL Eosinophils # 0.00 L (0.04-0.35) 10*3/uL Sodium 132 L (137-145) mmol/L Chloride 94 L (98-107) mmol/L BUN 101 H* (9-20) mg/dL Creatinine 4.62 H (0.66-1.25) mg/dL Glucose 131 H (74-99) mg/dL POC Glucose (mg/dL) (70-110) mg/dL Calcium 8.1 L (8.4-10.2) mg/dL Phosphorus 9.8 H* (2.5-4.5) mg/dL Magnesium 2.9 H (1.6-2.3) mg/dL 01/17/25 Range/Units 10:57 RBC (4.40-5.60) 10*6/uL Hgb (13.0-17.0) g/dL Hct (39.6-50.0) % MCHC (32.0-37.0) g/dL Plt Count (140-440) 10*3/uL MPV (9.5-12.2) fL Immature Gran # (0.00-0.04) 10*3/uL Eosinophils # (0.04-0.35) 10*3/uL Sodium (137-145) mmol/L Chloride (98-107) mmol/L BUN (9-20) mg/dL Creatinine (0.66-1.25) mg/dL Glucose (74-99) mg/dL POC Glucose (mg/dL) 115 H (70-110) mg/dL Calcium (8.4-10.2) mg/dL Phosphorus (2.5-4.5) mg/dL Magnesium (1.6-2.3) mg/dL Microbiology - Last 24 Hours (Table) 01/15/25 17:19 Urine Culture - Final Urine,Catheterized 01/14/25 10:14 Blood Culture - Preliminary Blood Assessment and Plan Assessment: Impression: Acute metabolic encephalopathy, multifactorial slightly better since patient was started on hemodialysis Severe sepsis Chronic cellulitis of lower extremities Suspect acute urinary tract infection Acute leukocytosis secondary to above Acute on chronic kidney injury secondary to sepsis Acute lactic acidosis secondary to sepsis Acute non-ST elevation myocardial infarction Paroxysmal atrial fibrillation Benign essential hypertension History of hypothyroidism Dyslipidemia Recommendation: Continue antibiotics as per infectious disease on the case patient is now on Rocephin and on daptomycin Continue BiPAP 14/02/30% Continue present supportive care measures and continue to monitor labs and check cultures Continue bronchodilators Monitor daily labs Continue seizure meds and seizure precautions Overall long-term prognosis extremely poor and guarded Should seriously consider hospice and comfort care measures Will continue to follow Time with Patient: Less than 30
--- NOTE | 2025-01-17 13:58 | P.PN ---
Subjective Progress Note Date: 01/17/25 I am following up with the patient and patient continues to be confused. Is on BiPAP and is getting dialysis today. The hearing aide technician she cannot perform the EEG since the patient is on dialysis as well as BiPAP Objective - Vital Signs Vital signs: Vital Signs Temp 97.5 F L 01/17/25 12:11 Pulse 81 01/17/25 12:11 Resp 17 01/17/25 12:11 BP 134/76 01/17/25 12:11 Pulse Ox 96 01/17/25 12:11 FiO2 30 01/17/25 12:11 Intake & Output 01/16/25 01/17/25 01/17/25 18:59 06:59 18:59 Intake Total 510 220 20 Output Total 1825 100 Balance -1315 120 20 Weight 120 kg Intake: IV 10 20 20 Invasive Line 1 10 20 20 Intake, IV Titration 200 Amount Dextrose 5% in Water 1, 200 000 ml @ 50 mls/hr IV . Q23H SAMANTHA with Sodium Bicarb (1 Meq/ml) 150 ml Rx#:[id number] Hemodialysis 500 Output: Urine 325 100 Uretheral ([place]) 100 Hemodialysis 1000 Hemodialysis Net Amount 500 Other: Voiding Method Indwelling Catheter Indwelling Catheter Indwelling Catheter - Exam General: Lying in bed and does not appear in in acute distress. Is getting dialysis. Lung:Is on BiPAP. Neuro: Is severey drowsy and awakeable to voice. Is not following commands or attempting to verbalize. Some of the workup during this hospital visit consisted of: Creatinine during this admission is as high as 5.10 and at baseline it is between 1-3. BUN is as high as 120 and is trending up. Sodium is 128 and currently is 129 Ammonia is 21 I reviewed the rest of the lab workup Urine analysis seems suggestive of acute urinary tract infection CT of the head is reported as no acute bleed or mass effect. Multiple remote infarct as described above. I personally reviewed the CT and I agree with there is no acute process. He does have old strokes. - Labs CBC & Chem 7: 01/17/25 06:59 01/17/25 06:59 Labs: Abnormal Lab Results - Last 24 Hours (Table) 01/16/25 01/16/25 01/17/25 Range/Units 16:41 19:53 06:30 RBC (4.40-5.60) 10*6/uL Hgb (13.0-17.0) g/dL Hct (39.6-50.0) % MCHC (32.0-37.0) g/dL Plt Count (140-440) 10*3/uL MPV (9.5-12.2) fL Immature Gran # (0.00-0.04) 10*3/uL Eosinophils # (0.04-0.35) 10*3/uL Sodium (137-145) mmol/L Chloride (98-107) mmol/L BUN (9-20) mg/dL Creatinine (0.66-1.25) mg/dL Glucose (74-99) mg/dL POC Glucose (mg/dL) 118 H 131 H 132 H (70-110) mg/dL Calcium (8.4-10.2) mg/dL Phosphorus (2.5-4.5) mg/dL Magnesium (1.6-2.3) mg/dL 01/17/25 01/17/25 01/17/25 Range/Units 06:59 06:59 06:59 RBC 3.06 L (4.40-5.60) 10*6/uL Hgb 8.5 L (13.0-17.0) g/dL Hct 27.2 L (39.6-50.0) % MCHC 31.3 L (32.0-37.0) g/dL Plt Count 509 H (140-440) 10*3/uL MPV 9.0 L (9.5-12.2) fL Immature Gran # 0.10 H (0.00-0.04) 10*3/uL Eosinophils # 0.00 L (0.04-0.35) 10*3/uL Sodium 132 L (137-145) mmol/L Chloride 94 L (98-107) mmol/L BUN 101 H* (9-20) mg/dL Creatinine 4.62 H (0.66-1.25) mg/dL Glucose 131 H (74-99) mg/dL POC Glucose (mg/dL) (70-110) mg/dL Calcium 8.1 L (8.4-10.2) mg/dL Phosphorus 9.8 H* (2.5-4.5) mg/dL Magnesium 2.9 H (1.6-2.3) mg/dL 01/17/25 Range/Units 10:57 RBC (4.40-5.60) 10*6/uL Hgb (13.0-17.0) g/dL Hct (39.6-50.0) % MCHC (32.0-37.0) g/dL Plt Count (140-440) 10*3/uL MPV (9.5-12.2) fL Immature Gran # (0.00-0.04) 10*3/uL Eosinophils # (0.04-0.35) 10*3/uL Sodium (137-145) mmol/L Chloride (98-107) mmol/L BUN (9-20) mg/dL Creatinine (0.66-1.25) mg/dL Glucose (74-99) mg/dL POC Glucose (mg/dL) 115 H (70-110) mg/dL Calcium (8.4-10.2) mg/dL Phosphorus (2.5-4.5) mg/dL Magnesium (1.6-2.3) mg/dL Microbiology - Last 24 Hours (Table) 01/15/25 17:19 Urine Culture - Final Urine,Catheterized 01/14/25 10:14 Blood Culture - Preliminary Blood Assessment and Plan Assessment: This is a 74-year-old gentleman with history of seizure who presents emergency department because of altered mental status. He has acute kidney injury with hyponatremia and today he had temporary dialysis catheter placement. Patient is in respiratory distress and he is on BiPAP Altered mental status due toxic-metabolic encephalopathy. Patient has acute kidney injury, hyponatremia, also has hypoxic encephalopathy Acute on chronic kidney injury status post temporary catheter dialysis on 01/16/2025 Probable acute UTI Hyponatremia Acute respiratory distress is on BiPAP History of seizures History of strokes Plan: Pending routine EEG. Unable to obtain today since is on BiPAP and is getting dialysis. Patient is resumed on his home medication of Depakote and he is on gabapentin. Pulmonary team is on board Nephrology team is on board ID team is on board Will defer the rest of the medical management to primary and other specialist Condition is very guarded. Time with Patient: Less than 30
[2025-01-17 16:29] LABS: Glucose,Whole Blood 112 mg/dL (70-110)
[2025-01-17 20:20] LABS: Glucose,Whole Blood 115 mg/dL (70-110)
--- NOTE | 2025-01-17 21:21 | P.PN ---
Subjective Progress Note Date: 01/16/25 Principal diagnosis: Reason for follow-up is left lower extremity cellulitis UTI Patient is a 74-year-old male with a past medical history significant for hypertension hyperlipidemia heart failure atrial fibrillation recent admitted to this facility with extensive left lower extremity cellulitis patient local culture positive for MRSA Proteus along with Enterococcus faecalis for which the patient got midline and was advised a 10-day course of IV Rocephin and daptomycin not been sent to the hospital with hypoxemia and mental status changes did have a positive UA. On today's evaluation that is 01/16/2025, Patient is afebrile patient is currently on BiPAP with 30% FiO2 patient remains to be lethargic unable to void any history no medical data has been reported. Patient white count is normalized to 7.82, creatinine is 5.10 blood cultures currently pending Objective - Vital Signs Vital signs: Vital Signs Temp 97.9 F 01/16/25 12:00 Pulse 69 01/16/25 12:00 Resp 10 L 01/16/25 12:00 BP 130/65 01/16/25 12:00 Pulse Ox 97 01/16/25 12:00 FiO2 30 01/16/25 12:00 Intake & Output 01/15/25 01/16/25 01/16/25 18:59 06:59 18:59 Intake Total 960 1040 10 Output Total 300 200 Balance 660 840 10 Weight 116 kg 116 kg Intake: IV 10 Invasive Line 1 10 Intake, IV Titration 960 800 Amount Calcium Gluconate in NaCl 100 1 gm In Saline 1 100ml. bag @ 100 mls/hr IVPB ONCE ONE Rx#:[id number] DAPTOmycin 400 mg In 50 Sodium Chloride 0.9% 50 ml @ 100 mls/hr IVPB Q48H SAMANTHA Rx#:[id number] Dextrose 5% in Water 1, 500 800 000 ml @ 100 mls/hr IV . [id number] SAMANTHA with Sodium Bicarb (1 Meq/ml) 150 ml Rx#:[id number] Sodium Chloride 0.9% 1, 260 000 ml @ 75 mls/hr IV . [id number] SAMANTHA Rx#:[id number] cefTRIAXone 2 gm In 50 Sodium Chloride 0.9% 50 ml @ 100 mls/hr IVPB Q24HR SAMANTHA Rx#:[id number] Oral 240 Output: Urine 300 200 Other: Voiding Method Indwelling Catheter Indwelling Catheter Indwelling Catheter - Exam GENERAL DESCRIPTION: An elderly male lying in bed in no distress RESPIRATORY SYSTEM: Unlabored breathing , decreased breath sounds at bases HEART: S1 S2 regular rate and rhythm , ABDOMEN: Soft , no tenderness EXTREMITIES: Left lower extremity overall swelling redness slightly decreased no drainage of the dressing - Labs CBC & Chem 7: 01/16/25 06:03 01/16/25 06:03 Labs: Abnormal Lab Results - Last 24 Hours (Table) 01/15/25 01/15/25 01/15/25 Range/Units 15:21 20:10 20:20 RBC (4.40-5.60) 10*6/uL Hgb (13.0-17.0) g/dL Hct (39.6-50.0) % MCHC (32.0-37.0) g/dL Plt Count (140-440) 10*3/uL MPV (9.5-12.2) fL Eosinophils # (0.04-0.35) 10*3/uL ABG pH 7.26 L (7.35-7.45) ABG pCO2 49 H (35-45) mmHg ABG O2 Saturation 97.4 H (94-97) % Hemoglobin 9.2 L (13.0-17.5) gm/dL Sodium (137-145) mmol/L Potassium 5.3 H (3.5-5.1) mmol/L Chloride (98-107) mmol/L BUN (9-20) mg/dL Creatinine (0.66-1.25) mg/dL Glucose (74-99) mg/dL POC Glucose (mg/dL) 151 H (70-110) mg/dL Hemoglobin A1c (<=6.0) % Calcium (8.4-10.2) mg/dL Magnesium (1.6-2.3) mg/dL 01/16/25 01/16/25 01/16/25 Range/Units 03:12 05:52 06:03 RBC (4.40-5.60) 10*6/uL Hgb (13.0-17.0) g/dL Hct (39.6-50.0) % MCHC (32.0-37.0) g/dL Plt Count (140-440) 10*3/uL MPV (9.5-12.2) fL Eosinophils # (0.04-0.35) 10*3/uL ABG pH (7.35-7.45) ABG pCO2 (35-45) mmHg ABG O2 Saturation (94-97) % Hemoglobin (13.0-17.5) gm/dL Sodium (137-145) mmol/L Potassium (3.5-5.1) mmol/L Chloride (98-107) mmol/L BUN (9-20) mg/dL Creatinine (0.66-1.25) mg/dL Glucose (74-99) mg/dL POC Glucose (mg/dL) 139 H 157 H (70-110) mg/dL Hemoglobin A1c 8.5 H (<=6.0) % Calcium (8.4-10.2) mg/dL Magnesium (1.6-2.3) mg/dL 01/16/25 01/16/25 01/16/25 Range/Units 06:03 06:03 11:26 RBC 2.88 L (4.40-5.60) 10*6/uL Hgb 8.1 L D (13.0-17.0) g/dL Hct 26.3 L (39.6-50.0) % MCHC 30.8 L (32.0-37.0) g/dL Plt Count 581 H (140-440) 10*3/uL MPV 9.4 L (9.5-12.2) fL Eosinophils # 0.01 L (0.04-0.35) 10*3/uL ABG pH (7.35-7.45) ABG pCO2 (35-45) mmHg ABG O2 Saturation (94-97) % Hemoglobin (13.0-17.5) gm/dL Sodium 129 L (137-145) mmol/L Potassium 5.2 H (3.5-5.1) mmol/L Chloride 94 L (98-107) mmol/L BUN 120 H* (9-20) mg/dL Creatinine 5.10 H (0.66-1.25) mg/dL Glucose 135 H (74-99) mg/dL POC Glucose (mg/dL) 152 H (70-110) mg/dL Hemoglobin A1c (<=6.0) % Calcium 7.9 L (8.4-10.2) mg/dL Magnesium 3.0 H (1.6-2.3) mg/dL Microbiology - Last 24 Hours (Table) 01/14/25 10:14 Blood Culture - Preliminary Blood Assessment and Plan (1) Encephalopathy Current Visit: Yes Status: Acute Code(s): G93.40 - ENCEPHALOPATHY, UNSPECIFIED SNOMED Code(s): 46477344 (2) UTI (urinary tract infection) Current Visit: Yes Status: Acute Code(s): N39.0 - URINARY TRACT INFECTION, SITE NOT SPECIFIED SNOMED Code(s): 50434466 (3) Cellulitis of left leg Current Visit: No Status: Acute Code(s): L03.116 - CELLULITIS OF LEFT LOWER LIMB SNOMED Code(s): 86297890134310107 Plan: 1patient presented to hospital with mental status changes lethargy which is likely multifactorial in this patient noticed to have significant worsening of his kidney function and this patient was getting treatment for his left lower extremity wound and cellulitis which has shown some improvement but not complete resolution of the left lower extremity cellulitis, with recent culture positive for Proteus and MRSA 2-patient also has a positive UA but hard to get any symptom to see if any component of symptomatic UTI 3-patient is afebrile white count has normalized he did have worsening of his k idney function and a dialysis catheter has been placed per vascular 4will continue the patient on daptomycin and Rocephin and monitor clinical course closely Dictation was produced using [employer] dictation software. please excuse any grammatical, word or spelling errors. Time with Patient: Less than 30
[2025-01-18 02:19] LABS: Glucose,Whole Blood 103 mg/dL (70-110)
[2025-01-18 06:25] LABS: Glucose,Whole Blood 106 mg/dL (70-110)
[2025-01-18 07:12] LABS: Basophils # (A) 0.02 10*3/uL (0.00-0.10); Basophils % (A) 0.2 %; Eosinophils # (A) 1.34 10*3/uL (0.04-0.35); Eosinophils % (A) 13.7 %; HCT 28.5 % (39.6-50.0); Lymphocytes # (A) 2.23 10*3/uL (0.90-5.00); Lymphocytes % (A) 22.8 %; MCH 28.3 pg (27.0-32.0); MCHC 31.6 g/dL (32.0-37.0); MCV 89.6 fL (80.0-97.0); Mean Platelet Volume 9.2 fL (9.5-12.2); Monocytes # (A) 0.98 10*3/uL (0.20-1.00); Neutrophils # (A) 5.08 10*3/uL (1.80-7.70); Neutrophils % (A) 51.8 %; Platelet Count 509 10*3/uL (140-440); RBC 3.18 10*6/uL (4.40-5.60); RDW 16.5 % (11.5-14.5)
[2025-01-18 07:49] LABS: African American GFR (CKD) 13 (>60 ml/min/1.73 sqM); Anion Gap 11 mmol/L; Blood Urea Nitrogen 78 mg/dL (9-20); Calcium 8.1 mg/dL (8.4-10.2); Carbon Dioxide 26 mmol/L (22-30); Chloride 95 mmol/L (98-107); Glucose 96 mg/dL (74-99); Magnesium 2.7 mg/dL (1.6-2.3); Non-African American GFR(CKD) 12 (>60 ml/min/1.73 sqM); Potassium 5.1 mmol/L (3.5-5.1); Sodium 132 mmol/L (137-145)
--- NOTE | 2025-01-18 10:19 | P.PN ---
Subjective Patient is seen in follow-up for acute kidney injury on chronic kidney disease. Has Astorga catheter. Urine output remains low. Tolerating dialysis well. Poor historian. Vital signs are stable. General: No acute distress. HEENT: On room air. LUNGS: No audible rhonchi or wheezes. HEART: Rate and Rhythm are regular. ABDOMEN: No distention. EXTREMITITES: Chronic changes noted. 1+ edema. Wrapped. Objective - Vital Signs Vital signs: Vital Signs Temp 98.4 F 01/18/25 08:34 Pulse 87 01/18/25 08:34 Resp 17 01/18/25 08:34 BP 163/75 01/18/25 08:34 Pulse Ox 95 01/18/25 09:56 FiO2 30 01/18/25 04:00 Intake & Output 01/17/25 01/18/25 01/18/25 18:59 06:59 18:59 Intake Total 920 30 10 Output Total 1075 0 Balance -155 30 10 Weight 119 kg Intake: IV 20 30 10 0.9 10 Invasive Line 1 20 20 10 Hemodialysis 900 Output: Urine 175 0 Stool 0 Hemodialysis 400 Hemodialysis Net Amount 500 Other: Voiding Method Indwelling Catheter Indwelling Catheter Indwelling Catheter # Voids 0 # Bowel Movements 0 - Labs CBC & Chem 7: 01/18/25 05:49 01/18/25 05:49 Labs: Abnormal Lab Results - Last 24 Hours (Table) 01/17/25 01/17/25 01/17/25 Range/Units 06:59 10:57 16:24 RBC (4.40-5.60) 10*6/uL Hgb (13.0-17.0) g/dL Hct (39.6-50.0) % MCHC (32.0-37.0) g/dL Plt Count (140-440) 10*3/uL MPV (9.5-12.2) fL Immature Gran # (0.00-0.04) 10*3/uL Eosinophils # (0.04-0.35) 10*3/uL Sodium (137-145) mmol/L Chloride (98-107) mmol/L BUN (9-20) mg/dL Creatinine (0.66-1.25) mg/dL POC Glucose (mg/dL) 115 H 112 H (70-110) mg/dL Calcium (8.4-10.2) mg/dL Phosphorus 9.8 H* (2.5-4.5) mg/dL Magnesium (1.6-2.3) mg/dL 01/17/25 01/18/25 01/18/25 Range/Units 20:19 05:49 05:49 RBC 3.18 L (4.40-5.60) 10*6/uL Hgb 9.0 L (13.0-17.0) g/dL Hct 28.5 L (39.6-50.0) % MCHC 31.6 L (32.0-37.0) g/dL Plt Count 509 H (140-440) 10*3/uL MPV 9.2 L (9.5-12.2) fL Immature Gran # 0.15 H (0.00-0.04) 10*3/uL Eosinophils # 1.34 H (0.04-0.35) 10*3/uL Sodium 132 L (137-145) mmol/L Chloride 95 L (98-107) mmol/L BUN 78 H (9-20) mg/dL Creatinine 4.68 H (0.66-1.25) mg/dL POC Glucose (mg/dL) 115 H (70-110) mg/dL Calcium 8.1 L (8.4-10.2) mg/dL Phosphorus (2.5-4.5) mg/dL Magnesium 2.7 H (1.6-2.3) mg/dL Microbiology - Last 24 Hours (Table) 01/14/25 10:14 Blood Culture - Preliminary Blood 01/15/25 17:19 Urine Culture - Final Urine,Catheterized Assessment and Plan Plan: Assessment: 1. Acute kidney injury secondary to ATN secondary to severe sepsis. Creatinine 5.1 dated January 16, 2025. Started on dialysis January 16, 2025. Has femoral catheter. Kidney ultrasound from December 2024 showed no evidence of hydronephrosis. 2. Chronic kidney disease stage IIIa with baseline creatinine 1.2-1.4. 3. Chronic diastolic CHF and moderate aortic stenosis. 4. Hyperkalemia secondary to acute kidney injury and acidosis. Better. 5. Metabolic acidosis secondary to acute kidney injury and IV fluids. Also on metformin. Improved with bicarb drip and dialysis. 6. Hyponatremia secondary to acute kidney injury, hypervolemic. 7. Severe sepsis secondary to UTI. Also had recent cellulitis. On antibiotics. 8. Anemia due to acute illness and chronic kidney disease. On Aranesp. 9. Volume overload. 10. Hyperphosphatemia secondary to acute kidney injury. Will add binder once able to tolerate oral meds. Plan: Currently seen while undergoing hemodialysis. Another treatment tomorrow. Challenge ultrafiltration. Remains off IV fluids. Maintain Astorga catheter. Metformin discontinued. Avoid nephrotoxins. Monitor for renal recovery.
[2025-01-18 11:20] LABS: Glucose,Whole Blood 100 mg/dL (70-110)
--- NOTE | 2025-01-18 13:29 | P.PN ---
Subjective Progress Note Date: 01/17/25 Principal diagnosis: Reason for follow-up is left lower extremity cellulitis UTI Patient is a 74-year-old male with a past medical history significant for hypertension hyperlipidemia heart failure atrial fibrillation recent admitted to this facility with extensive left lower extremity cellulitis patient local culture positive for MRSA Proteus along with Enterococcus faecalis for which the patient got midline and was advised a 10-day course of IV Rocephin and daptomycin not been sent to the hospital with hypoxemia and mental status changes did have a positive UA. On today's evaluation that is 01/17/2025, patient has been afebrile, patient is breathing comfortably however still requiring BiPAP with 30% FiO2 seem to be slightly more awake today unable provide any history and undergoing dialysis. Patient white count is 9.06 with creatinine of 4.62 blood urine culture have been negative Objective - Vital Signs Vital signs: Vital Signs Temp 98.6 F 01/17/25 20:00 Pulse 79 01/17/25 20:00 Resp 12 01/17/25 20:00 BP 155/77 01/17/25 20:00 Pulse Ox 96 01/17/25 20:00 FiO2 30 01/17/25 20:25 Intake & Output 01/17/25 01/17/25 01/18/25 06:59 18:59 06:59 Intake Total 220 920 10 Output Total 100 1075 Balance 120 -155 10 Weight 120 kg Intake: IV 20 20 10 Invasive Line 1 20 20 10 Intake, IV Titration 200 Amount Dextrose 5% in Water 1, 200 000 ml @ 50 mls/hr IV . Q23H SAMANTHA with Sodium Bicarb (1 Meq/ml) 150 ml Rx#:[id number] Hemodialysis 900 Output: Urine 100 175 Uretheral (Astorga) 100 Hemodialysis 400 Hemodialysis Net Amount 500 Other: Voiding Method Indwelling Catheter Indwelling Catheter Indwelling Catheter - Exam GENERAL DESCRIPTION: An elderly male lying in bed in no distress RESPIRATORY SYSTEM: Unlabored breathing , decreased breath sounds at bases HEART: S1 S2 regular rate and rhythm , ABDOMEN: Soft , no tenderness EXTREMITIES: Left lower extremity swelling redness slightly decreased - Labs CBC & Chem 7: 01/18/25 05:49 01/18/25 05:49 Labs: Abnormal Lab Results - Last 24 Hours (Table) 01/17/25 01/17/25 01/17/25 Range/Units 06:30 06:59 06:59 RBC 3.06 L (4.40-5.60) 10*6/uL Hgb 8.5 L (13.0-17.0) g/dL Hct 27.2 L (39.6-50.0) % MCHC 31.3 L (32.0-37.0) g/dL Plt Count 509 H (140-440) 10*3/uL MPV 9.0 L (9.5-12.2) fL Immature Gran # 0.10 H (0.00-0.04) 10*3/uL Eosinophils # 0.00 L (0.04-0.35) 10*3/uL Sodium 132 L (137-145) mmol/L Chloride 94 L (98-107) mmol/L BUN 101 H* (9-20) mg/dL Creatinine 4.62 H (0.66-1.25) mg/dL Glucose 131 H (74-99) mg/dL POC Glucose (mg/dL) 132 H (70-110) mg/dL Calcium 8.1 L (8.4-10.2) mg/dL Phosphorus (2.5-4.5) mg/dL Magnesium 2.9 H (1.6-2.3) mg/dL 01/17/25 01/17/25 01/17/25 Range/Units 06:59 10:57 16:24 RBC (4.40-5.60) 10*6/uL Hgb (13.0-17.0) g/dL Hct (39.6-50.0) % MCHC (32.0-37.0) g/dL Plt Count (140-440) 10*3/uL MPV (9.5-12.2) fL Immature Gran # (0.00-0.04) 10*3/uL Eosinophils # (0.04-0.35) 10*3/uL Sodium (137-145) mmol/L Chloride (98-107) mmol/L BUN (9-20) mg/dL Creatinine (0.66-1.25) mg/dL Glucose (74-99) mg/dL POC Glucose (mg/dL) 115 H 112 H (70-110) mg/dL Calcium (8.4-10.2) mg/dL Phosphorus 9.8 H* (2.5-4.5) mg/dL Magnesium (1.6-2.3) mg/dL 01/17/25 Range/Units 20:19 RBC (4.40-5.60) 10*6/uL Hgb (13.0-17.0) g/dL Hct (39.6-50.0) % MCHC (32.0-37.0) g/dL Plt Count (140-440) 10*3/uL MPV (9.5-12.2) fL Immature Gran # (0.00-0.04) 10*3/uL Eosinophils # (0.04-0.35) 10*3/uL Sodium (137-145) mmol/L Chloride (98-107) mmol/L BUN (9-20) mg/dL Creatinine (0.66-1.25) mg/dL Glucose (74-99) mg/dL POC Glucose (mg/dL) 115 H (70-110) mg/dL Calcium (8.4-10.2) mg/dL Phosphorus (2.5-4.5) mg/dL Magnesium (1.6-2.3) mg/dL Microbiology - Last 24 Hours (Table) 01/14/25 10:14 Blood Culture - Preliminary Blood 01/15/25 17:19 Urine Culture - Final Urine,Catheterized Assessment and Plan (1) Encephalopathy Current Visit: Yes Status: Acute Code(s): G93.40 - ENCEPHALOPATHY, UNSPECIFIED SNOMED Code(s): 40132035 (2) UTI (urinary tract infection) Current Visit: Yes Status: Acute Code(s): N39.0 - URINARY TRACT INFECTION, SITE NOT SPECIFIED SNOMED Code(s): 02003210 (3) Cellulitis of left leg Current Visit: No Status: Acute Code(s): L03.116 - CELLULITIS OF LEFT LOWER LIMB SNOMED Code(s): 04928881961402978 Plan: 1patient presented to hospital with mental status changes lethargy which is likely multifactorial in this patient noticed to have significant worsening of his kidney function and this patient was getting treatment for his left lower extremity wound and cellulitis which has shown some improvement but not complete resolution of the left lower extremity cellulitis, with recent culture positive for Proteus and MRSA 2-patient also has a positive UA but hard to get any symptom and culture have been negative 3-patient is afebrile white count has normalized 4patient to continue treatment with daptomycin and Rocephin and monitor clinical course closely Dictation was produced using [employer] dictation software. please excuse any grammatical, word or spelling errors. Time with Patient: Less than 30
--- NOTE | 2025-01-18 13:30 | P.PN ---
Subjective Progress Note Date: 01/18/25 Principal diagnosis: Reason for follow-up is left lower extremity cellulitis UTI Patient is a 74-year-old male with a past medical history significant for hypertension hyperlipidemia heart failure atrial fibrillation recent admitted to this facility with extensive left lower extremity cellulitis patient local culture positive for MRSA Proteus along with Enterococcus faecalis for which the patient got midline and was advised a 10-day course of IV Rocephin and daptomycin not been sent to the hospital with hypoxemia and mental status changes did have a positive UA. On today's evaluation that is 01/18/2025, Patient is afebrile this morning patient slightly more awake today and is off the BiPAP currently on room air and breathing comfortably undergoing dialysis no vomiting diarrhea or any other changes reported by the nursing staff. Patient white count is 9.80, creatinine 4.68 blood and urine culture have been negative Objective - Vital Signs Vital signs: Vital Signs Temp 98.4 F 01/18/25 08:34 Pulse 82 01/18/25 11:06 Resp 15 01/18/25 11:06 BP 161/79 01/18/25 11:06 Pulse Ox 95 01/18/25 11:06 FiO2 30 01/18/25 04:00 Intake & Output 01/17/25 01/18/25 01/18/25 18:59 06:59 18:59 Intake Total 920 30 10 Output Total 1075 0 Balance -155 30 10 Weight 119 kg Intake: IV 20 30 10 0.9 10 Invasive Line 1 20 20 10 Hemodialysis 900 Output: Urine 175 0 Stool 0 Hemodialysis 400 Hemodialysis Net Amount 500 Other: Voiding Method Indwelling Catheter Indwelling Catheter Indwelling Catheter # Voids 0 # Bowel Movements 0 - Exam GENERAL DESCRIPTION: An elderly male lying in bed in no distress RESPIRATORY SYSTEM: Unlabored breathing , decreased breath sounds at bases HEART: S1 S2 regular rate and rhythm , ABDOMEN: Soft , no tenderness EXTREMITIES: Left lower extremity swelling redness slightly decreased - Labs CBC & Chem 7: 01/18/25 05:49 01/18/25 05:49 Labs: Abnormal Lab Results - Last 24 Hours (Table) 01/17/25 01/17/25 01/18/25 Range/Units 16:24 20:19 05:49 RBC 3.18 L (4.40-5.60) 10*6/uL Hgb 9.0 L (13.0-17.0) g/dL Hct 28.5 L (39.6-50.0) % MCHC 31.6 L (32.0-37.0) g/dL Plt Count 509 H (140-440) 10*3/uL MPV 9.2 L (9.5-12.2) fL Immature Gran # 0.15 H (0.00-0.04) 10*3/uL Eosinophils # 1.34 H (0.04-0.35) 10*3/uL Sodium (137-145) mmol/L Chloride (98-107) mmol/L BUN (9-20) mg/dL Creatinine (0.66-1.25) mg/dL POC Glucose (mg/dL) 112 H 115 H (70-110) mg/dL Calcium (8.4-10.2) mg/dL Magnesium (1.6-2.3) mg/dL 01/18/25 Range/Units 05:49 RBC (4.40-5.60) 10*6/uL Hgb (13.0-17.0) g/dL Hct (39.6-50.0) % MCHC (32.0-37.0) g/dL Plt Count (140-440) 10*3/uL MPV (9.5-12.2) fL Immature Gran # (0.00-0.04) 10*3/uL Eosinophils # (0.04-0.35) 10*3/uL Sodium 132 L (137-145) mmol/L Chloride 95 L (98-107) mmol/L BUN 78 H (9-20) mg/dL Creatinine 4.68 H (0.66-1.25) mg/dL POC Glucose (mg/dL) (70-110) mg/dL Calcium 8.1 L (8.4-10.2) mg/dL Magnesium 2.7 H (1.6-2.3) mg/dL Microbiology - Last 24 Hours (Table) 01/14/25 10:14 Blood Culture - Preliminary Blood Assessment and Plan (1) Encephalopathy Current Visit: Yes Status: Acute Code(s): G93.40 - ENCEPHALOPATHY, UNSPECIFIED SNOMED Code(s): 20287191 (2) UTI (urinary tract infection) Current Visit: Yes Status: Acute Code(s): N39.0 - URINARY TRACT INFECTION, SITE NOT SPECIFIED SNOMED Code(s): 13078706 (3) Cellulitis of left leg Current Visit: No Status: Acute Code(s): L03.116 - CELLULITIS OF LEFT LOWER LIMB SNOMED Code(s): 04571427863789942 Plan: 1patient presented to hospital with mental status changes lethargy which is likely multifactorial in this patient noticed to have significant worsening of his kidney function and this patient was getting treatment for his left lower extremity wound and cellulitis which has shown some improvement but not complete resolution of the left lower extremity cellulitis, with recent culture positive for Proteus and MRSA 2-patient also has a positive UA but hard to get any symptom and culture have been negative 3-patient is afebrile white count has normalized and did have improvement well approximately swelling and redness we will continue with the daptomycin and Rocephin and continue supportive care Dictation was produced using [email or web address] dictation software. please excuse any grammatical, word or spelling errors. Time with Patient: Less than 30
--- NOTE | 2025-01-18 13:34 | P.PN ---
Subjective Progress Note Date: 01/18/25 I am following up with the patient and he is getting dialysis. An EEG could not be performed since he was getting dialysis. According to the nurse he is doing much better today. He is off of BiPAP. Per the nurse he is actually following commands and verbalizing. Objective - Vital Signs Vital signs: Vital Signs Temp 98.4 F 01/18/25 08:34 Pulse 82 01/18/25 11:06 Resp 15 01/18/25 11:06 BP 161/79 01/18/25 11:06 Pulse Ox 95 01/18/25 11:06 FiO2 30 01/18/25 04:00 Intake & Output 01/17/25 01/18/25 01/18/25 18:59 06:59 18:59 Intake Total 920 30 10 Output Total 1075 0 Balance -155 30 10 Weight 119 kg Intake: IV 20 30 10 0.9 10 Invasive Line 1 20 20 10 Hemodialysis 900 Output: Urine 175 0 Stool 0 Hemodialysis 400 Hemodialysis Net Amount 500 Other: Voiding Method Indwelling Catheter Indwelling Catheter Indwelling Catheter # Voids 0 # Bowel Movements 0 - Exam General: Lying in bed and does not appear in in acute distress. Is getting dialysis. Neuro: Is mildly drowsy but he is awake able to voice. He is oriented to self. He is actually following simple commands such as showing a thumbs up smiling and closing his eyes to command. No facial weakness No dysarthria from limited language. Some of the workup during this hospital visit consisted of: Creatinine during this admission is as high as 5.10 and at baseline it is between 1-3. BUN is as high as 120 ---> trending down Sodium is 128 and currently is 129 Ammonia is 21 I reviewed the rest of the lab workup Urine analysis seems suggestive of acute urinary tract infection CT of the head is reported as no acute bleed or mass effect. Multiple remote infarct as described above. I personally reviewed the CT and I agree with there is no acute process. He does have old strokes. - Labs CBC & Chem 7: 01/18/25 05:49 01/18/25 05:49 Labs: Abnormal Lab Results - Last 24 Hours (Table) 01/17/25 01/17/25 01/18/25 Range/Units 16:24 20:19 05:49 RBC 3.18 L (4.40-5.60) 10*6/uL Hgb 9.0 L (13.0-17.0) g/dL Hct 28.5 L (39.6-50.0) % MCHC 31.6 L (32.0-37.0) g/dL Plt Count 509 H (140-440) 10*3/uL MPV 9.2 L (9.5-12.2) fL Immature Gran # 0.15 H (0.00-0.04) 10*3/uL Eosinophils # 1.34 H (0.04-0.35) 10*3/uL Sodium (137-145) mmol/L Chloride (98-107) mmol/L BUN (9-20) mg/dL Creatinine (0.66-1.25) mg/dL POC Glucose (mg/dL) 112 H 115 H (70-110) mg/dL Calcium (8.4-10.2) mg/dL Magnesium (1.6-2.3) mg/dL 01/18/25 Range/Units 05:49 RBC (4.40-5.60) 10*6/uL Hgb (13.0-17.0) g/dL Hct (39.6-50.0) % MCHC (32.0-37.0) g/dL Plt Count (140-440) 10*3/uL MPV (9.5-12.2) fL Immature Gran # (0.00-0.04) 10*3/uL Eosinophils # (0.04-0.35) 10*3/uL Sodium 132 L (137-145) mmol/L Chloride 95 L (98-107) mmol/L BUN 78 H (9-20) mg/dL Creatinine 4.68 H (0.66-1.25) mg/dL POC Glucose (mg/dL) (70-110) mg/dL Calcium 8.1 L (8.4-10.2) mg/dL Magnesium 2.7 H (1.6-2.3) mg/dL Microbiology - Last 24 Hours (Table) 01/14/25 10:14 Blood Culture - Preliminary Blood Assessment and Plan Assessment: This is a 74-year-old gentleman with history of seizure who presents emergency department because of altered mental status. He has acute kidney injury with hyponatremia and today he had temporary dialysis catheter placement. Patient is in respiratory distress and he is on BiPAP Altered mental status due toxic-metabolic encephalopathy. Patient has acute kidney injury, hyponatremia, also has hypoxic encephalopathy for past two days getting dialysis, he is off BiPAP today--mentation is improving today. His c onfusion is not due to breakthrough seizure Acute on chronic kidney injury status post temporary catheter dialysis on 01/16/2025 Probable acute UTI Hyponatremia Acute respiratory distress is on BiPAP History of seizures History of strokes Plan: Patient was unable to obtain the EEG for the last 2 days since he was getting dialysis or he was on BiPAP. Since his mentation is improved I canceled the EEG since this does not seem to be a seizure. If she continues to have further confusion then recommend pursuing with the EEG. Patient is resumed on his home medication of Depakote and he is on gabapentin. Pulmonary team is on board Nephrology team is on board ID team is on board Will defer the rest of the medical management to primary and other specialist Condition is guarded. The plan discussed with the patient and his nurse. Dr. Nichols resume neurology service tomorrow AM. Time with Patient: Less than 30
[2025-01-18 16:07] LABS: Glucose,Whole Blood 121 mg/dL (70-110)
--- NOTE | 2025-01-18 16:23 | P.PN ---
Subjective Progress Note Date: 01/18/25 Hospital course: Patient is a 74-year-old male with a history of type 2 diabetes melitis, hypothyroidism, hypertension, atrial fibrillation was brought [facility] the [facility] for altered [facility] status. History is obtained by reviewing ER and EMS notes. Patient was recently hospitalized for sepsis secondary to UTI and cellulitis of the left lower extremity and SIMRAN and was discharged on dap tomycin and ceftriaxone for 2 weeks, [facility]. On arrival to the ED, patient was found to be hypoxic and was put on BiPAP. Initial laboratory evaluation WBC 13.45, hemoglobin 9.5, platelet count 676, sodium 138, potassium 5.8, chloride 92, bicarb 17, BUN 114, creatinine 4.55, glucose 227, magnesium 3.0, calcium 8.5, lactic acid 0.9, ALP 144, AST 20 ALT 20, creatinine kinase 130, NT proBNP 20 840, albumin 3.0. Urinalysis consistent with pyuria, hematuria and proteinuria. Chest x-ray shows no acute cardiopulmonary process. 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 EKG consistent with normal sinus rhythm with ventricular rate of 84 bpm, MT interval 144 ms, QRS duration 102 ms, QTc [address] T wave elevation noted. Normal R wave progression noted. Infectious disease was consulted. Nephrology was consulted. Patient is started on IV daptomycin and ceftriaxone. At the time of interview, patient is currently on BiPAP with a setting of 12/6 with a flow rate of 10 and oxygen at 30%. 01/16/2025: Patient seen and examined at the bedside. Patient continues to be on BiPAP. Patient is awake but not alert and oriented to time place and person. Lab work today shows WBC 7.82, hemoglobin 8.1, hematocrit 26.3, MCV 91.3, platelet count 581, sodium 129, potassium 5.2, BUN 20, creatinine 5.10, hemoglobin A1c 8.5, calcium 7.9, magnesium 3.0. Urine output was 500 mL in 24 hours. Patient to un dergo hemodialysis today and tomorrow. 01/17/2025 Patient seen and examined at side. Patient currently undergoing hemodialysis with a goal of 0.5 L. Hemodialysis yesterday with output of 0.5 L. Patient states but more alert and awake today. Follows verbal command. Continues to be on BiPAP. Urine cultures negative. Blood culture preliminary report shows no bacterial growth. WBC 9.06, hemoglobin 8.5, sodium 132, potassium 12.5, BUN 101, creatinine 4.62, calcium 8.1, magnesium 2.9. 01/18/2025 Patient seen and examined at the bedside. Patient lying comfortably on the bed. Currently getting hemodialysis. 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 Slightly more awake alert compared to yesterday. He is following verbal commands. White cell count was 9.8, hemoglobin 9.0, hematocrit 28.5, platelet count 509, sodium 132, potassium 5.1, BUN 38, creatinine 4.68, calcium 8.1, magnesium 2.7. Physical examination: Vital signs reviewed General: non toxic, no distress, appears at stated age, obese Derm: Multiple chronic lesions on bilateral extremities, legs wrapped Head: atraumatic, normocephalic, symmetric Eyes: EOMI, no lid lag, anicteric sclera, pupils equal round reactive to light ENT: Nose and ears atraumatic, Neck: No cervical lymphadenopathy, trachea midline, supple Mouth: no lip lesion, mucus membranes moist Cardiovascular: S1S2 reg, no murmur, positive dorsalis pedis pulse bilateral, 3+ lower extremity pitting edema Lungs: CTA bilateral, no rhonchi, no rales, no accessory muscle use, on BiPAP Abdominal: soft, nontender to palpation, no guarding Ext: muscle strength 5 out of 5 in all 4 extremities grossly, no gross muscle atrophy, no contractures, Neuro: CN II-XI grossly intact, no gross focal neuro deficits Psych: Alert, oriented, appropriate affect Assessment/Plan: This is a 74-year-old male with a history of type 2 diabetes melitis, hypothyroidism, hypertension, atrial fibrillation was brought to the ER via EMS from [facility] for altered mental status. Case was discussed with the Emergency Room provider and decision was made to admit the patient for acute toxic metabolic encephalopathy, SIMRAN, UTI Active: #Sepsis secondary to UTI #SIMRAN secondary to ATN secondary to sepsis #Hypervolemic hyponatremia #Hyperkalemia secondary to SIMRAN #Hypermagnesemia #Acute toxic metabolic encephalopathy secondary to above Continue with IV Rocephin and IV daptomycin Infectious disease and nephrology on board, patient currently undergoing hemodialysis Blood culture urine culture negative Continue renal diet add Aranesp #Acute hypoxic respiratory failure, was on BiPAP, currently on room air #Volume overload #HFpEF, not in exacerbation Pulmonology on board continue monitor vital signs Repeat chest x-ray this afternoon Echocardiogram was done on 12/30/2024 showed preserved LV function of 55 to 60% with moderate . #History of seizure disorder Neurology on board, EEG today Continue Depakote 125 mg p.o. twice daily #Anemia of the chronic disease, baseline between - Low hemoglobin of 8.1 likely secondary to hemo-dilution Continue monitor hemoglobin No active bleeding Transfuse with packed RBC if hemoglobin less than 7 #Type 2 diabetes Resume Lantus 20 units subcu daily Start patient on sliding scale insulin Monitor for hypoglycemia #Generalized weakness Consult PT/OT DVT prophylaxis: Heparin subcu GI prophylaxis: None F: None E: Replete as needed N: Renal diet A: Ambulatory at baseline CODE STATUS: CODE STATUS was discussed with legal guardian over the phone. Legal guardian wants patient to be cardiopulmonary resuscitated but no mechanical intubation Discussed with: Legal guardian Anticipated discharge place: Pending clinical course Attestation I have seen and examined this patient with my resident , discussed the same with the resident/ONDINA, and agree with the dictator's assessment and plan as written Dr. Augustin yin Objective - Vital Signs Vital signs: Vital Signs Temp 98.4 F 01/18/25 08:34 Pulse 82 01/18/25 11:06 Resp 15 01/18/25 11:06 BP 161/79 01/18/25 11:06 Pulse Ox 95 01/18/25 11:06 FiO2 30 01/18/25 04:00 Intake & Output 01/17/25 01/18/25 01/18/25 18:59 06:59 18:59 Intake Total 920 30 20 Output Total 1075 125 Balance -155 30 -105 Weight 119 kg 119 kg Intake: IV 20 30 20 0.9 10 Invasive Line 1 20 20 20 Hemodialysis 900 Output: Urine 175 125 Stool 0 Hemodialysis 400 Hemodialysis Net Amount 500 Other: Voiding Method Indwelling Catheter Indwelling Catheter Indwelling Catheter # Voids 0 # Bowel Movements 1 - Labs CBC & Chem 7: 01/19/25 05:40 01/19/25 05:40 Labs: Abnormal Lab Results - Last 24 Hours (Table) 01/17/25 01/17/25 01/18/25 Range/Units 16:24 20:19 05:49 RBC 3.18 L (4.40-5.60) 10*6/uL Hgb 9.0 L (13.0-17.0) g/dL Hct 28.5 L (39.6-50.0) % MCHC 31.6 L (32.0-37.0) g/dL Plt Count 509 H (140-440) 10*3/uL MPV 9.2 L (9.5-12.2) fL Immature Gran # 0.15 H (0.00-0.04) 10*3/uL Eosinophils # 1.34 H (0.04-0.35) 10*3/uL Sodium (137-145) mmol/L Chloride (98-107) mmol/L BUN (9-20) mg/dL Creatinine (0.66-1.25) mg/dL POC Glucose (mg/dL) 112 H 115 H (70-110) mg/dL Calcium (8.4-10.2) mg/dL Magnesium (1.6-2.3) mg/dL 01/18/25 01/18/25 Range/Units 05:49 16:05 RBC (4.40-5.60) 10*6/uL Hgb (13.0-17.0) g/dL Hct (39.6-50.0) % MCHC (32.0-37.0) g/dL Plt Count (140-440) 10*3/uL MPV (9.5-12.2) fL Immature Gran # (0.00-0.04) 10*3/uL Eosinophils # (0.04-0.35) 10*3/uL Sodium 132 L (137-145) mmol/L Chloride 95 L (98-107) mmol/L BUN 78 H (9-20) mg/dL Creatinine 4.68 H (0.66-1.25) mg/dL POC Glucose (mg/dL) 121 H (70-110) mg/dL Calcium 8.1 L (8.4-10.2) mg/dL Magnesium 2.7 H (1.6-2.3) mg/dL Microbiology - Last 24 Hours (Table) 01/14/25 10:14 Blood Culture - Preliminary Blood
[2025-01-18 20:13] LABS: Glucose,Whole Blood 119 mg/dL (70-110)
[2025-01-19 06:04] LABS: Glucose,Whole Blood 99 mg/dL (70-110)
[2025-01-19 07:42] LABS: Basophils # (A) 0.02 10*3/uL (0.00-0.10); Basophils % (A) 0.2 %; Eosinophils # (A) 1.36 10*3/uL (0.04-0.35); Eosinophils % (A) 15.1 %; HCT 27.5 % (39.6-50.0); HGB 8.5 g/dL (13.0-17.0); Lymphocytes # (A) 2.17 10*3/uL (0.90-5.00); MCH 27.9 pg (27.0-32.0); MCHC 30.9 g/dL (32.0-37.0); MCV 90.2 fL (80.0-97.0); Monocytes # (A) 0.83 10*3/uL (0.20-1.00); Monocytes % (A) 9.2 %; Neutrophils # (A) 4.49 10*3/uL (1.80-7.70); Neutrophils % (A) 49.7 %; Platelet Count 433 10*3/uL (140-440); RBC 3.05 10*6/uL (4.40-5.60); RDW 16.7 % (11.5-14.5); WBC 9.03 10*3/uL (4.50-10.00)
[2025-01-19 07:56] LABS: African American GFR (CKD) 15 (>60 ml/min/1.73 sqM); Anion Gap 10 mmol/L; Blood Urea Nitrogen 55 mg/dL (9-20); Calcium 8.3 mg/dL (8.4-10.2); Carbon Dioxide 27 mmol/L (22-30); Chloride 98 mmol/L (98-107); Glucose 87 mg/dL (74-99); Magnesium 2.6 mg/dL (1.6-2.3); Non-African American GFR(CKD) 13 (>60 ml/min/1.73 sqM); Potassium 4.5 mmol/L (3.5-5.1); Sodium 135 mmol/L (137-145)
--- NOTE | 2025-01-19 08:09 | P.PN ---
Subjective Progress Note Date: 01/19/25 Principal diagnosis: Acute kidney injury need for hemodialysis Patient is seen and examined today as a follow-up. He is awake and alert to self. He is currently undergoing hemodialysis currently without any complications. Kidney function continues to improve. Objective - Vital Signs Vital signs: Vital Signs Temp 98.4 F 01/19/25 07:55 Pulse 51 L 01/19/25 07:55 Resp 16 01/19/25 07:55 BP 117/72 01/19/25 07:55 Pulse Ox 94 L 01/19/25 03:37 FiO2 30 01/18/25 04:00 Intake & Output 01/18/25 01/19/25 01/19/25 18:59 06:59 18:59 Intake Total 420 20 510 Output Total 3725 400 500 Balance -3305 -380 10 Weight 119 kg 120 kg Intake: IV 20 20 10 Invasive Line 1 20 20 10 Hemodialysis 400 500 Output: Urine 125 400 Stool 0 Hemodialysis 2000 500 Hemodialysis Net Amount 1600 0 Other: Voiding Method Indwelling Catheter Indwelling Catheter # Voids 0 # Bowel Movements 1 - Exam General appearance: The patient is awake and alert to self. Obese HET: Head is normocephalic and atraumatic. Neck: Supple. Abdomen: Soft, nontender, nondistended. Extremities: Normal skin color and turgor. Right groin with temporary HD catheter in place without any bleeding. Neurological: Awake and alert to name. - Labs CBC & Chem 7: 01/19/25 05:40 01/19/25 05:40 Labs: Abnormal Lab Results - Last 24 Hours (Table) 01/18/25 01/18/25 01/19/25 Range/Units 16:05 20:12 05:40 RBC 3.05 L (4.40-5.60) 10*6/uL Hgb 8.5 L (13.0-17.0) g/dL Hct 27.5 L (39.6-50.0) % MCHC 30.9 L (32.0-37.0) g/dL MPV 9.0 L (9.5-12.2) fL Immature Gran # 0.16 H (0.00-0.04) 10*3/uL Eosinophils # 1.36 H (0.04-0.35) 10*3/uL Sodium (137-145) mmol/L BUN (9-20) mg/dL Creatinine (0.66-1.25) mg/dL POC Glucose (mg/dL) 121 H 119 H (70-110) mg/dL Calcium (8.4-10.2) mg/dL Magnesium (1.6-2.3) mg/dL 01/19/25 Range/Units 05:40 RBC (4.40-5.60) 10*6/uL Hgb (13.0-17.0) g/dL Hct (39.6-50.0) % MCHC (32.0-37.0) g/dL MPV (9.5-12.2) fL Immature Gran # (0.00-0.04) 10*3/uL Eosinophils # (0.04-0.35) 10*3/uL Sodium 135 L (137-145) mmol/L BUN 55 H (9-20) mg/dL Creatinine 4.30 H (0.66-1.25) mg/dL POC Glucose (mg/dL) (70-110) mg/dL Calcium 8.3 L (8.4-10.2) mg/dL Magnesium 2.6 H (1.6-2.3) mg/dL Assessment and Plan Assessment: 1. Acute kidney injury requiring renal replacement therapy status post temporary HD catheter placement 2. Chronic kidney disease 3. Acute metabolic encephalopathy 4. Sepsis secondary to UTI and he has cellulitis of lower extremities 5. Hypoxic on BiPAP Plan: 1. Hemodialysis per recommendations from nephrology 2. We will be on standby if further needed for permacath or any complications with temp cath Thank you for this consultation. The impression and plan of care has been dictated as directed. Dr. Samantha Green performed a history and examination of this patient, discussed the same with the dictator. I agree with the dictator's note ,documented as a scribe. Any additional findings or plans will be noted.
--- NOTE | 2025-01-19 10:17 | P.PN ---
Subjective Patient is seen in follow-up for acute kidney injury on chronic kidney disease. Has Astorga catheter. Urine output remains low. Received only short duration of dialysis this morning due to bradycardia. Vital signs are stable. General: No acute distress. HEENT: On room air. LUNGS: No audible rhonchi or wheezes. HEART: Rate and Rhythm are regular. ABDOMEN: No distention. EXTREMITITES: Chronic changes noted. 1+ edema. Wrapped. Objective - Vital Signs Vital signs: Vital Signs Temp 98.4 F 01/19/25 07:55 Pulse 51 L 01/19/25 07:55 Resp 16 01/19/25 07:55 BP 117/72 01/19/25 07:55 Pulse Ox 94 L 01/19/25 03:37 FiO2 30 01/18/25 04:00 Intake & Output 01/18/25 01/19/25 01/19/25 18:59 06:59 18:59 Intake Total 420 20 610 Output Total 3725 400 550 Balance -3305 -380 60 Weight 119 kg 120 kg Intake: IV 20 20 10 Invasive Line 1 20 20 10 Intake, IV Titration 100 Amount DAPTOmycin 400 mg In 50 Sodium Chloride 0.9% 50 ml @ 100 mls/hr IVPB Q48H [facility] Rx#:[id number] cefTRIAXone 2 gm In 50 Sodium Chloride 0.9% 50 ml @ 100 mls/hr IVPB Q24HR [facility] Rx#:[id number] Hemodialysis 400 500 Output: Urine 125 400 50 Uretheral (Astorga) 50 Stool 0 Hemodialysis 2000 500 Hemodialysis Net Amount 1600 0 Other: Voiding Method Indwelling Catheter Indwelling Catheter Indwelling Catheter # Voids 0 # Bowel Movements 1 - Labs CBC & Chem 7: 01/19/25 05:40 01/19/25 05:40 Labs: Abnormal Lab Results - Last 24 Hours (Table) 01/18/25 01/18/25 01/19/25 Range/Units 16:05 20:12 05:40 RBC 3.05 L (4.40-5.60) 10*6/uL Hgb 8.5 L (13.0-17.0) g/dL Hct 27.5 L (39.6-50.0) % MCHC 30.9 L (32.0-37.0) g/dL MPV 9.0 L (9.5-12.2) fL Immature Gran # 0.16 H (0.00-0.04) 10*3/uL Eosinophils # 1.36 H (0.04-0.35) 10*3/uL Sodium (137-145) mmol/L BUN (9-20) mg/dL Creatinine (0.66-1.25) mg/dL POC Glucose (mg/dL) 121 H 119 H (70-110) mg/dL Calcium (8.4-10.2) mg/dL Magnesium (1.6-2.3) mg/dL / Range/Units 05:40 RBC (4.40-5.60) 10*6/uL Hgb (13.0-17.0) g/dL Hct (39.6-50.0) % MCHC (32.0-37.0) g/dL MPV (9.5-12.2) fL Immature Gran # (0.00-0.04) 10*3/uL Eosinophils # (0.04-0.35) 10*3/uL Sodium 135 L (137-145) mmol/L BUN 55 H (9-20) mg/dL Creatinine 4.30 H (0.66-1.25) mg/dL POC Glucose (mg/dL) (70-110) mg/dL Calcium 8.3 L (8.4-10.2) mg/dL Magnesium 2.6 H (1.6-2.3) mg/dL Assessment and Plan Plan: Assessment: 1. Acute kidney injury secondary to ATN secondary to severe sepsis. Creatinine 5.1 dated January 16, 2025. Started on dialysis January 16, 2025. Has femoral catheter. Kidney ultrasound from December 2024 showed no evidence of hydronephrosis. 2. Chronic kidney disease stage IIIa with baseline creatinine 1.2-1.4. 3. Chronic diastolic CHF and moderate aortic stenosis. 4. Hyperkalemia secondary to acute kidney injury and acidosis. Better. 5. Metabolic acidosis secondary to acute kidney injury and IV fluids. Also on metformin. Improved with bicarb drip and dialysis. 6. Hyponatremia secondary to acute kidney injury, hypervolemic. 7. Severe sepsis secondary to UTI. Also had recent cellulitis. On antibiotics. 8. Anemia due to acute illness and chronic kidney disease. On Aranesp. 9. Volume overload. 10. Hyperphosphatemia secondary to acute kidney injury. Will add binder once able to tolerate oral meds. Plan: Only received a brief hemodialysis treatment this morning due to bradycardia. Will reattempt tomorrow. Remains off IV fluids. Maintain Astorga catheter. Metformin discontinued. Avoid nephrotoxins. Monitor for renal recovery.
[2025-01-19 11:41] LABS: Glucose,Whole Blood 85 mg/dL (70-110)
--- NOTE | 2025-01-19 14:48 | P.PN ---
Subjective Progress Note Date: 01/19/25 Hospital course: Patient is a 74-year-old male with a history of type 2 diabetes melitis, hypothyroidism, hypertension, atrial fibrillation was brought to the ER via EMS from [facility] for altered mental status. History is obtained by reviewing ER and EMS notes. Patient was recently hospitalized for sepsis secondary to UTI and cellulitis of the left lower extremity and SIMRAN and was discharged on dap tomycin and ceftriaxone for 2 weeks, sent to [facility]. On arrival to the ED, patient was found to be hypoxic and was put on BiPAP. Initial laboratory evaluation WBC 13.45, hemoglobin 9.5, platelet count 676, sodium 138, potassium 5.8, chloride 92, bicarb 17, BUN 114, creatinine 4.55, glucose 227, magnesium 3.0, calcium 8.5, lactic acid 0.9, ALP 144, AST 20 ALT 20, creatinine kinase 130, NT proBNP 20 840, albumin 3.0. Urinalysis consistent with pyuria, hematuria and proteinuria. Chest x-ray shows no acute cardiopulmonary process. 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 EKG consistent with normal sinus rhythm with ventricular rate of 84 bpm, MI interval 144 ms, QRS duration 102 ms, QTc [address] T wave elevation noted. Normal R wave progression noted. Infectious disease was consulted. Nephrology was consulted. Patient is started on IV daptomycin and ceftriaxone. At the time of interview, patient is currently on BiPAP with a setting of 12/6 with a flow rate of 10 and oxygen at 30%. 01/16/2025: Patient seen and examined at the bedside. Patient continues to be on BiPAP. Patient is awake but not alert and oriented to time place and person. Lab work today shows WBC 7.82, hemoglobin 8.1, hematocrit 26.3, MCV 91.3, platelet count 581, sodium 129, potassium 5.2, BUN 20, creatinine 5.10, hemoglobin A1c 8.5, calcium 7.9, magnesium 3.0. Urine output was 500 mL in 24 hours. Patient to un dergo hemodialysis today and tomorrow. 01/17/2025 Patient seen and examined at side. Patient currently undergoing hemodialysis with a goal of 0.5 L. Hemodialysis yesterday with output of 0.5 L. Patient states but more alert and awake today. Follows verbal command. Continues to be on BiPAP. Urine cultures negative. Blood culture preliminary report shows no bacterial growth. WBC 9.06, hemoglobin 8.5, sodium 132, potassium 12.5, BUN 101, creatinine 4.62, calcium 8.1, magnesium 2.9. 01/18/2025 Patient seen and examined at the bedside. Patient lying comfortably on the bed. Currently getting hemodialysis. 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 Slightly more awake alert compared to yesterday. He is following verbal commands. White cell count was 9.8, hemoglobin 9.0, hematocrit 28.5, platelet count 509, sodium 132, potassium 5.1, BUN 38, creatinine 4.68, calcium 8.1, magnesium 2.7. 01/19. Patient seen examined. Patient was undergoing dialysis but could not complete the cycle today because of episodes of bradycardia. Patient is currently on room air. Patient is alert but mental status waxes and wanes. Labs reviewed showed WBC 9.03, hemoglobin 8.5, sodium 135, potassium 4.5, BUN 45, creatinine 4.30 Physical examination: General: non toxic, no distress, appears at stated age, obese Derm: Multiple chronic lesions on bilateral extremities, legs wrapped Head: atraumatic, normocephalic, symmetric Eyes: EOMI, no lid lag, anicteric sclera, pupils equal round reactive to light ENT: Nose and ears atraumatic, Cardiovascular: S1S2 reg, no murmur, positive dorsalis pedis pulse bilateral, 3+ lower extremity pitting edema Lungs: CTA bilateral, diminished at the bases Abdominal: soft, nontender to palpation, no guarding Ext: muscle strength 5 out of 5 in all 4 extremities grossly, no gross muscle atrophy, no contractures, Neuro: CN II-XI grossly intact, no gross focal neuro deficits Psych: Alert, oriented, appropriate affect Assessment/Plan: This is a 74-year-old male with a history of type 2 diabetes melitis, hypothyroidism, hypertension, atrial fibrillation was brought to the ER via EMS from [facility] for altered mental status. Case was discussed with the Emergency Room provider and decision was made to admit the patient for acute toxic metabolic encephalopathy, SIMRAN, UTI Active: #Sepsis secondary to UTI #SIMRAN secondary to ATN secondary to sepsis #Hypervolemic hyponatremia #Hyperkalemia secondary to SIMRAN #Hypermagnesemia #Acute toxic metabolic encephalopathy secondary to above Continue with IV Rocephin and IV daptomycin Blood culture urine culture negative ID following, appreciate recommendation Nephrology following, recommendations noted from 01/19 #Acute hypoxic respiratory failure, was on BiPAP, currently on room air #Volume overload #HFpEF, not in exacerbation Continue oxygen supplementation Use of BiPAP as needed Echocardiogram was done on 12/30/2024 showed preserved LV function of 55 to 60% with moderate . Pulmonology following #History of seizure disorder Neurology on board, EEG today Continue Depakote 125 mg p.o. twice daily #Anemia of the chronic disease, baseline between - Low hemoglobin of 8.1 likely secondary to hemo-dilution Continue monitor hemoglobin No active bleeding Transfuse with packed RBC if hemoglobin less than 7 #Type 2 diabetes Continue Lantus 20 units subcu daily Continue patient on sliding scale insulin Monitor for hypoglycemia #Generalized weakness Consult PT/OT DVT prophylaxis: Heparin subcu GI prophylaxis: None Objective - Vital Signs Vital signs: Vital Signs Temp 98.7 F 01/19/25 11:20 Pulse 53 L 01/19/25 11:20 Resp 16 01/19/25 11:20 BP 151/74 01/19/25 11:20 Pulse Ox 98 01/19/25 11:20 FiO2 30 01/18/25 04:00 Intake & Output 01/18/25 01/19/25 01/19/25 18:59 06:59 18:59 Intake Total 420 20 620 Output Total 3725 400 550 Balance -3305 -380 70 Weight 119 kg 120 kg Intake: IV 20 20 20 Invasive Line 1 20 20 20 Intake, IV Titration 100 Amount DAPTOmycin 400 mg In 50 Sodium Chloride 0.9% 50 ml @ 100 mls/hr IVPB Q48H [facility] Rx#:[id number] cefTRIAXone 2 gm In 50 Sodium Chloride 0.9% 50 ml @ 100 mls/hr IVPB Q24HR [facility] Rx#:[id number] Hemodialysis 400 500 Output: Urine 125 400 50 Uretheral (Astorga) 50 Stool 0 Hemodialysis 2000 500 Hemodialysis Net Amount 1600 0 Other: Voiding Method Indwelling Catheter Indwelling Catheter Indwelling Catheter # Voids 0 # Bowel Movements 1 - Labs CBC & Chem 7: 01/19/25 05:40 01/19/25 05:40 Labs: Abnormal Lab Results - Last 24 Hours (Table) 01/18/25 01/18/25 01/19/25 Range/Units 16:05 20:12 05:40 RBC 3.05 L (4.40-5.60) 10*6/uL Hgb 8.5 L (13.0-17.0) g/dL Hct 27.5 L (39.6-50.0) % MCHC 30.9 L (32.0-37.0) g/dL MPV 9.0 L (9.5-12.2) fL Immature Gran # 0.16 H (0.00-0.04) 10*3/uL Eosinophils # 1.36 H (0.04-0.35) 10*3/uL Sodium (137-145) mmol/L BUN (9-20) mg/dL Creatinine (0.66-1.25) mg/dL POC Glucose (mg/dL) 121 H 119 H (70-110) mg/dL Calcium (8.4-10.2) mg/dL Magnesium (1.6-2.3) mg/dL 01/19/25 Range/Units 05:40 RBC (4.40-5.60) 10*6/uL Hgb (13.0-17.0) g/dL Hct (39.6-50.0) % MCHC (32.0-37.0) g/dL MPV (9.5-12.2) fL Immature Gran # (0.00-0.04) 10*3/uL Eosinophils # (0.04-0.35) 10*3/uL Sodium 135 L (137-145) mmol/L BUN 55 H (9-20) mg/dL Creatinine 4.30 H (0.66-1.25) mg/dL POC Glucose (mg/dL) (70-110) mg/dL Calcium 8.3 L (8.4-10.2) mg/dL Magnesium 2.6 H (1.6-2.3) mg/dL
--- NOTE | 2025-01-19 15:36 | P.PN ---
Subjective Progress Note Date: 01/19/25 Principal diagnosis: Reason for follow-up is left lower extremity cellulitis UTI Patient is a 74-year-old male with a past medical history significant for hypertension hyperlipidemia heart failure atrial fibrillation recent admitted to this facility with extensive left lower extremity cellulitis patient local culture positive for MRSA Proteus along with Enterococcus faecalis for which the patient got midline and was advised a 10-day course of IV Rocephin and daptomycin not been sent to the hospital with hypoxemia and mental status changes did have a positive UA. On today's evaluation that is 01/19/2025,the patient remains to be afebrile he is breathing comfortably currently on room air slightly more awake alert but not a very good historian no vomiting diarrhea or any other changes reported by the nursing staff. Patient white count is 9.03, creatinine is 4.30 blood and urine has been negative Objective - Vital Signs Vital signs: Vital Signs Temp 98.7 F 01/19/25 11:20 Pulse 53 L 01/19/25 11:20 Resp 16 01/19/25 11:20 BP 151/74 01/19/25 11:20 Pulse Ox 98 01/19/25 11:20 FiO2 30 01/18/25 04:00 Intake & Output 01/18/25 01/19/25 01/19/25 18:59 06:59 18:59 Intake Total 420 20 610 Output Total 3725 400 550 Balance -3305 -380 60 Weight 119 kg 120 kg Intake: IV 20 20 10 Invasive Line 1 20 20 10 Intake, IV Titration 100 Amount DAPTOmycin 400 mg In 50 Sodium Chloride 0.9% 50 ml @ 100 mls/hr IVPB Q48H [facility] Rx#:[id number] cefTRIAXone 2 gm In 50 Sodium Chloride 0.9% 50 ml @ 100 mls/hr IVPB Q24HR [facility] Rx#:[id number] Hemodialysis 400 500 Output: Urine 125 400 50 Uretheral (Astorga) 50 Stool 0 Hemodialysis 2000 500 Hemodialysis Net Amount 1600 0 Other: Voiding Method Indwelling Catheter Indwelling Catheter Indwelling Catheter # Voids 0 # Bowel Movements 1 - Exam GENERAL DESCRIPTION: An elderly male lying in bed in no distress RESPIRATORY SYSTEM: Unlabored breathing , decreased breath sounds at bases HEART: S1 S2 regular rate and rhythm , ABDOMEN: Soft , no tenderness EXTREMITIES: Left lower extremity swelling redness slightly decreased - Labs CBC & Chem 7: 01/19/25 05:40 01/19/25 05:40 Labs: Abnormal Lab Results - Last 24 Hours (Table) 01/18/25 01/18/25 01/19/25 Range/Units 16:05 20:12 05:40 RBC 3.05 L (4.40-5.60) 10*6/uL Hgb 8.5 L (13.0-17.0) g/dL Hct 27.5 L (39.6-50.0) % MCHC 30.9 L (32.0-37.0) g/dL MPV 9.0 L (9.5-12.2) fL Immature Gran # 0.16 H (0.00-0.04) 10*3/uL Eosinophils # 1.36 H (0.04-0.35) 10*3/uL Sodium (137-145) mmol/L BUN (9-20) mg/dL Creatinine (0.66-1.25) mg/dL POC Glucose (mg/dL) 121 H 119 H (70-110) mg/dL Calcium (8.4-10.2) mg/dL Magnesium (1.6-2.3) mg/dL 01/19/25 Range/Units 05:40 RBC (4.40-5.60) 10*6/uL Hgb (13.0-17.0) g/dL Hct (39.6-50.0) % MCHC (32.0-37.0) g/dL MPV (9.5-12.2) fL Immature Gran # (0.00-0.04) 10*3/uL Eosinophils # (0.04-0.35) 10*3/uL Sodium 135 L (137-145) mmol/L BUN 55 H (9-20) mg/dL Creatinine 4.30 H (0.66-1.25) mg/dL POC Glucose (mg/dL) (70-110) mg/dL Calcium 8.3 L (8.4-10.2) mg/dL Magnesium 2.6 H (1.6-2.3) mg/dL Assessment and Plan (1) Encephalopathy Current Visit: Yes Status: Acute Code(s): G93.40 - ENCEPHALOPATHY, UNSPECIFIED SNOMED Code(s): 09684265 (2) UTI (urinary tract infection) Current Visit: Yes Status: Acute Code(s): N39.0 - URINARY TRACT INFECTION, SITE NOT SPECIFIED SNOMED Code(s): 87736411 (3) Cellulitis of left leg Current Visit: No Status: Acute Code(s): L03.116 - CELLULITIS OF LEFT LOWER LIMB SNOMED Code(s): 60205196810268268 Plan: 1patient presented to hospital with mental status changes lethargy which is likely multifactorial in this patient noticed to have significant worsening of his kidney function and this patient was getting treatment for his left lower extremity wound and cellulitis which has shown some improvement but not complete resolution of the left lower extremity cellulitis, with recent culture positive for Proteus and MRSA 2-patient also has a positive UA however culture have been negative 3-patient is afebrile white count has normalized 4patient to continue with the daptomycin and Rocephin and monitor clinical course closely Dictation was produced using [employer] dictation software. please excuse any grammatical, word or spelling errors. Time with Patient: Less than 30
[2025-01-19 16:23] LABS: Glucose,Whole Blood 90 mg/dL (70-110)
--- NOTE | 2025-01-19 17:31 | P.PN ---
Subjective Progress Note Date: 01/19/25 Patient was initially seen by Dr. Imtiaz Snider. Please refer to his note for details. Patient is a 74-year-old male with history of seizure with altered mental status. Dr. Snider felt it was likely due to acute kidney injury. Patient is on dialysis. He is improving. Dr. Snider canceled EEG, as patient was improving and felt was from SIMRAN. Patient was seen for the follow-up. Patient is laying in the bed, saying he is "okay". Patient is not on any oxygen or BiPAP at this time. Patient denies headache. He does complain of backache. He rates it 9/10. He claims it is normal in the lower back. Some of the workup during this hospital visit consisted of: Creatinine during this admission is as high as 5.10 and at baseline it is between 1-3. BUN is as high as 120 ---> trending down Sodium is 128 and currently is 129 Ammonia is 21 I reviewed the rest of the lab workup Urine analysis seems suggestive of acute urinary tract infection CT of the head is reported as no acute bleed or mass effect. Multiple remote infarct as described above. I personally reviewed the CT and I agree with there is no acute process. He does have old strokes. Objective - Vital Signs Vital signs: Vital Signs Temp 98.8 F 01/19/25 16:34 Pulse 52 L 01/19/25 16:34 Resp 16 01/19/25 16:34 BP 146/62 01/19/25 16:34 Pulse Ox 96 01/19/25 16:34 FiO2 30 01/18/25 04:00 Intake & Output 01/18/25 01/19/25 01/19/25 18:59 06:59 18:59 Intake Total 420 20 620 Output Total 3725 400 550 Balance -3305 -380 70 Weight 119 kg 120 kg Intake: IV 20 20 20 Invasive Line 1 20 20 20 Intake, IV Titration 100 Amount DAPTOmycin 400 mg In 50 Sodium Chloride 0.9% 50 ml @ 100 mls/hr IVPB Q48H [facility] Rx#:[id number] cefTRIAXone 2 gm In 50 Sodium Chloride 0.9% 50 ml @ 100 mls/hr IVPB Q24HR [facility] Rx#:[id number] Hemodialysis 400 500 Output: Urine 125 400 50 Uretheral (Astorga) 50 Stool 0 Hemodialysis 2000 500 Hemodialysis Net Amount 1600 0 Other: Voiding Method Indwelling Catheter Indwelling Catheter Indwelling Catheter # Voids 0 # Bowel Movements 1 - Exam Patient is an elderly male, who appears older than his stated age. Patient does not know the month of the year or what building he is in. 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 He was able to hold his arms up in the ER, without any droop. He can wiggle his feet. He has bandages in the whole right foot and the left bauer. He has significant peripheral edema. - Labs CBC & Chem 7: 01/19/25 05:40 01/19/25 05:40 Labs: Abnormal Lab Results - Last 24 Hours (Table) 01/18/25 01/19/25 01/19/25 Range/Units 20:12 05:40 05:40 RBC 3.05 L (4.40-5.60) 10*6/uL Hgb 8.5 L (13.0-17.0) g/dL Hct 27.5 L (39.6-50.0) % MCHC 30.9 L (32.0-37.0) g/dL MPV 9.0 L (9.5-12.2) fL Immature Gran # 0.16 H (0.00-0.04) 10*3/uL Eosinophils # 1.36 H (0.04-0.35) 10*3/uL Sodium 135 L (137-145) mmol/L BUN 55 H (9-20) mg/dL Creatinine 4.30 H (0.66-1.25) mg/dL POC Glucose (mg/dL) 119 H (70-110) mg/dL Calcium 8.3 L (8.4-10.2) mg/dL Magnesium 2.6 H (1.6-2.3) mg/dL Microbiology - Last 24 Hours (Table) 01/14/25 10:14 Blood Culture - Final Blood Assessment and Plan Assessment: This is a 74-year-old gentleman with history of seizure who presents emergency department because of altered mental status. He has acute kidney injury with hyponatremia and today he had temporary dialysis catheter placement. Patient is in respiratory distress and he is on BiPAP Altered mental status due toxic-metabolic encephalopathy. Patient has acute kidney injury, hyponatremia, also has hypoxic encephalopathy for past two days g etting dialysis, he is off BiPAP today--mentation is improving today. His confusion is not due to breakthrough seizure Acute on chronic kidney injury status post temporary catheter dialysis on 2024 Patient has UTI and cellulitis of the left leg. ID following. Cultures have grown Proteus and MRSA. Hyponatremia Acute respiratory distress is on BiPAP History of seizures History of strokes Plan: Patient has toxic metabolic encephalopathy. Previously he was not able to receive EEG because of either getting dialysis, or on BiPAP. We will follow clinically. If mentation does not improve, we will check EEG. Patient is resumed on his home medication of Depakote and he is on gabapentin. Pulmonary team is on board Nephrology team is on board ID team is on board Will defer the rest of the medical management to primary and other specialist Condition is guarded.
[2025-01-19 20:23] LABS: Glucose,Whole Blood 110 mg/dL (70-110)
[2025-01-20 00:38] LABS: Glucose,Whole Blood 102 mg/dL (70-110)
[2025-01-20 05:50] LABS: Glucose,Whole Blood 90 mg/dL (70-110)
--- NOTE | 2025-01-20 10:48 | P.PN ---
Subjective Patient is seen for follow-up for acute kidney injury and chronic kidney disease. Currently maintained on hemodialysis. Scheduled for treatment today. Patient is not communicating much. Hemodynamically stable. Has indwelling Astorga catheter with 24-hour urine output charted at about 200 mL Objective - Vital Signs Vital signs: Vital Signs Temp 98.1 F 01/20/25 07:25 Pulse 51 L 01/20/25 07:25 Resp 16 01/20/25 07:25 BP 150/63 01/20/25 07:25 Pulse Ox 94 L 01/20/25 07:25 FiO2 30 01/18/25 04:00 Intake & Output 01/19/25 01/20/25 01/20/25 18:59 06:59 18:59 Intake Total 620 20 10 Output Total 550 150 25 Balance 70 -130 -15 Weight 116 kg Intake: IV 20 20 10 Invasive Line 1 20 20 10 Intake, IV Titration 100 Amount DAPTOmycin 400 mg In 50 Sodium Chloride 0.9% 50 ml @ 100 mls/hr IVPB Q48H [facility] Rx#:[id number] cefTRIAXone 2 gm In 50 Sodium Chloride 0.9% 50 ml @ 100 mls/hr IVPB Q24HR [facility] Rx#:[id number] Hemodialysis 500 Output: Urine 50 150 25 Uretheral (Astorga) 50 50 25 Stool 0 Hemodialysis 500 Hemodialysis Net Amount 0 Other: Voiding Method Indwelling Catheter Indwelling Catheter Indwelling Catheter # Bowel Movements 2 - Exam Patient is asleep but opens eyes. He does not communicate much Examination of the heart S1 and S2 Examination of the lungs bilateral breath sounds are heard Abdomen is soft nontender Examination of lower extremities shows they are wrapped - Labs CBC & Chem 7: 01/19/25 05:40 01/19/25 05:40 Labs: Microbiology - Last 24 Hours (Table) 01/14/25 10:14 Blood Culture - Final Blood Assessment and Plan Assessment: 1. Acute kidney injury secondary to ATN secondary to severe sepsis. Creatinine 5.1 dated January 16, 2025. Started on dialysis January 16, 2025. Has femoral catheter. Kidney ultrasound from December 2024 showed no evidence of hydronephrosis. 2. Chronic kidney disease stage IIIa with baseline creatinine 1.2-1.4. 3. Chronic diastolic CHF and moderate aortic stenosis. 4. Hyperkalemia secondary to acute kidney injury and acidosis. Better. 5. Metabolic acidosis secondary to acute kidney injury and IV fluids. Also on metformin. Improved with bicarb drip and dialysis. 6. Hyponatremia secondary to acute kidney injury, hypervolemic. 7. Severe sepsis secondary to UTI. Also had recent cellulitis. On a ntibiotics. 8. Anemia due to acute illness and chronic kidney disease. On Aranesp. 9. Volume overload. 10. Hyperphosphatemia secondary to acute kidney injury. Will add binder once able to tolerate oral meds. Plan: Hemodialysis today Continue with Astorga catheter Monitor for recovery of renal function. Repeat labs in a.m.
[2025-01-20 11:17] LABS: Glucose,Whole Blood 101 mg/dL (70-110)
--- NOTE | 2025-01-20 12:40 | FL ---
Exam Date: 01/19/2025 1:32 PM. Modified barium swallow for dysphagia. Consistencies administered: Various consistency of barium. No images were sent to PACS. Please see speech pathology report. DAP: 87.04 mGym2 Gycm2 [facility], , 01/20/2025 12:37 PM
--- NOTE | 2025-01-20 15:30 | P.PN ---
Subjective Progress Note Date: 01/20/25 Principal diagnosis: Reason for follow-up is left lower extremity cellulitis UTI Patient is a 74-year-old male with a past medical history significant for hypertension hyperlipidemia heart failure atrial fibrillation recent admitted to this facility with extensive left lower extremity cellulitis patient local culture positive for MRSA Proteus along with Enterococcus faecalis for which the patient got midline and was advised a 10-day course of IV Rocephin and daptomycin not been sent to the hospital with hypoxemia and mental status changes did have a positive UA. On today's evaluation that is 01/20/2025,the patient remains to be afebrile, patient is on room air not requiring supplemental oxygen patient undergoing dialysis he seem to be slightly more awake alert but not a very good historian no vomiting or diarrhea has been reported. Patient did not have lab prior today his white count was 9.03 as of yesterday blood and urine has been negative Objective - Vital Signs Vital signs: Vital Signs Temp 98.3 F 01/20/25 15:15 Pulse 41 L 01/20/25 15:15 Resp 18 01/20/25 15:15 BP 150/69 01/20/25 15:15 Pulse Ox 96 01/20/25 15:15 FiO2 30 01/18/25 04:00 Intake & Output 01/19/25 01/20/25 01/20/25 18:59 06:59 18:59 Intake Total 620 20 20 Output Total 550 150 25 Balance 70 -130 -5 Weight 116 kg Intake: IV 20 20 20 Invasive Line 1 20 20 20 Intake, IV Titration 100 Amount DAPTOmycin 400 mg In 50 Sodium Chloride 0.9% 50 ml @ 100 mls/hr IVPB Q48H [facility] Rx#:[id number] cefTRIAXone 2 gm In 50 Sodium Chloride 0.9% 50 ml @ 100 mls/hr IVPB Q24HR [facility] Rx#:[id number] Hemodialysis 500 Output: Urine 50 150 25 Uretheral (Astorga) 50 50 25 Stool 0 Hemodialysis 500 Hemodialysis Net Amount 0 Other: Voiding Method Indwelling Catheter Indwelling Catheter Indwelling Catheter # Bowel Movements 2 1 - Exam GENERAL DESCRIPTION: An elderly male lying in bed in no distress RESPIRATORY SYSTEM: Unlabored breathing , decreased breath sounds at bases HEART: S1 S2 regular rate and rhythm , ABDOMEN: Soft , no tenderness EXTREMITIES: Left lower extremity swelling redness slightly decreased - Labs CBC & Chem 7: 01/19/25 05:40 01/19/25 05:40 Labs: Microbiology - Last 24 Hours (Table) 01/14/25 10:14 Blood Culture - Final Blood Assessment and Plan (1) Encephalopathy Current Visit: Yes Status: Acute Code(s): G93.40 - ENCEPHALOPATHY, UNSPECIFIED SNOMED Code(s): 65662233 (2) UTI (urinary tract infection) Current Visit: Yes Status: Acute Code(s): N39.0 - URINARY TRACT INFECTION, SITE NOT SPECIFIED SNOMED Code(s): 97483221 (3) Cellulitis of left leg Current Visit: No Status: Acute Code(s): L03.116 - CELLULITIS OF LEFT LOWER LIMB SNOMED Code(s): 58145149349807679 Plan: 1patient presented to hospital with mental status changes lethargy which is likely multifactorial in this patient noticed to have significant worsening of his kidney function and this patient was getting treatment for his left lower extremity wound and cellulitis which has shown some improvement but not complete resolution of the left lower extremity cellulitis, with recent culture positive for Proteus and MRSA 2-patient also has a positive UA however culture have been negative 3-patient is afebrile white count has normalized, patient is currently being treated with daptomycin and Rocephin still have evidence of significant cellulitis to the left lower extremity though seem to be slightly improving Dictation was produced using [employer] dictation software. please excuse any grammatical, word or spelling errors. Time with Patient: Less than 30
--- NOTE | 2025-01-20 15:48 | P.PN ---
Subjective Progress Note Date: 01/20/25 Hospital course: Patient is a 74-year-old male with a history of type 2 diabetes melitis, hypothyroidism, hypertension, atrial fibrillation was brought to the ER via EMS from custodial for altered mental status. History is obtained by reviewing ER and EMS notes. Patient was recently hospitalized for sepsis secondary to UTI and cellulitis of the left lower extremity and SIMRAN and was discharged on dap tomycin and ceftriaxone for 2 weeks, sent to custodial for rehabilitation. On arrival to the ED, patient was found to be hypoxic and was put on BiPAP. Initial laboratory evaluation WBC 13.45, hemoglobin 9.5, platelet count 676, sodium 138, potassium 5.8, chloride 92, bicarb 17, BUN 114, creatinine 4.55, glucose 227, magnesium 3.0, calcium 8.5, lactic acid 0.9, ALP 144, AST 20 ALT 20, creatinine kinase 130, NT proBNP 20 840, albumin 3.0. Urinalysis consistent with pyuria, hematuria and proteinuria. Chest x-ray shows no acute cardiopulmonary process. 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 EKG consistent with normal sinus rhythm with ventricular rate of 84 bpm, IL interval 144 ms, QRS duration 102 ms, QTc [address] T wave elevation noted. Normal R wave progression noted. Infectious disease was consulted. Nephrology was consulted. Patient is started on IV daptomycin and ceftriaxone. At the time of interview, patient is currently on BiPAP with a setting of 12/6 with a flow rate of 10 and oxygen at 30%. 01/16/2025: Patient seen and examined at the bedside. Patient continues to be on BiPAP. Patient is awake but not alert and oriented to time place and person. Lab work today shows WBC 7.82, hemoglobin 8.1, hematocrit 26.3, MCV 91.3, platelet count 581, sodium 129, potassium 5.2, BUN 20, creatinine 5.10, hemoglobin A1c 8.5, calcium 7.9, magnesium 3.0. Urine output was 500 mL in 24 hours. Patient to un dergo hemodialysis today and tomorrow. 01/17/2025 Patient seen and examined at side. Patient currently undergoing hemodialysis with a goal of 0.5 L. Hemodialysis yesterday with output of 0.5 L. Patient states but more alert and awake today. Follows verbal command. Continues to be on BiPAP. Urine cultures negative. Blood culture preliminary report shows no bacterial growth. WBC 9.06, hemoglobin 8.5, sodium 132, potassium 12.5, BUN 101, creatinine 4.62, calcium 8.1, magnesium 2.9. 01/18/2025 Patient seen and examined at the bedside. Patient lying comfortably on the bed. Currently getting hemodialysis. Patient is off BiPAP since emergency department aide and is currently on room air. Slightly more awake alert compared to yesterday. He is following verbal commands. White cell count was 9.8, hemoglobin 9.0, hematocrit 28.5, platelet count 509, sodium 132, potassium 5.1, BUN 38, creatinine 4.68, calcium 8.1, magnesium 2.7. 01/19/2025. Patient seen examined. Patient was undergoing dialysis but could not complete the cycle today because of episodes of bradycardia. Patient is currently on room air. Patient is alert but mental status waxes and wanes. Labs reviewed showed WBC 9.03, hemoglobin 8.5, sodium 135, potassium 4.5, BUN 45, creatinine 4.30 01/20/2025 no new labs from today. Patient seen and examined at the bedside. No acute events overnight. Patient to undergo hemodialysis session today. Patient could not complete the hemodialysis yesterday because of the bradycardic episodes. She is currently on room air and is hemodynamically stable. No new labs from today. Physical examination: General: non toxic, no distress, appears at stated age, obese Derm: Multiple chronic lesions on bilateral extremities, legs wrapped Head: atraumatic, normocephalic, symmetric Eyes: EOMI, no lid lag, anicteric sclera, pupils equal round reactive to light ENT: Nose and ears atraumatic, Cardiovascular: S1S2 reg, no murmur, positive dorsalis pedis pulse bilateral, 3+ lower extremity pitting edema Lungs: CTA bilateral, diminished at the bases Abdominal: soft, nontender to palpation, no guarding Ext: muscle strength 5 out of 5 in all 4 extremities grossly, no gross muscle atrophy, no contractures, Neuro: CN II-XI grossly intact, no gross focal neuro deficits Psych: Alert, oriented, appropriate affect Assessment/Plan: This is a 74-year-old male with a history of type 2 diabetes melitis, hypothyroidism, hypertension, atrial fibrillation was brought to the ER via EMS from custodial for altered mental status. Case was discussed with the Emergency Room provider and decision was made to admit the patient for acute toxic metabolic encephalopathy, SIMRAN, UTI Active: #Sepsis secondary to UTI #SIMRAN secondary to ATN secondary to sepsis #Hypervolemic hyponatremia #Hyperkalemia secondary to SIMRAN #Hypermagnesemia #Acute toxic metabolic encephalopathy secondary to above #Bilateral lower extremity cellulitis Continue with IV Rocephin and IV daptomycin Blood culture urine culture negative ID following, appreciate recommendation Nephrology following, recommendations noted from 01/19 #Acute hypoxic respiratory failure, was on BiPAP, currently on room air #Volume overload #HFpEF, not in exacerbation Continue oxygen supplementation Use of BiPAP as needed Echocardiogram was done on 12/30/2024 showed preserved LV function of 55 to 60% with moderate . Pulmonology following #History of seizure disorder Neurology on board, EEG today Continue Depakote 125 mg p.o. twice daily #Anemia of the chronic disease, baseline between 10-11 Low hemoglobin of 8.1 likely secondary to hemo-dilution Continue monitor hemoglobin No active bleeding Transfuse with packed RBC if hemoglobin less than 7 #Type 2 diabetes Continue Lantus 20 units subcu daily Continue patient on sliding scale insulin Monitor for hypoglycemia #Generalized weakness Consult PT/OT DVT prophylaxis: Heparin subcu GI prophylaxis: None Attestation I have seen and examined this patient with my resident , discussed the same with the resident/ONDINA, and agree with the dictator's assessment and plan as written Dr. Augustin yin Objective - Vital Signs Vital signs: Vital Signs Temp 98.3 F 01/20/25 15:15 Pulse 41 L 01/20/25 15:15 Resp 18 01/20/25 15:15 BP 150/69 01/20/25 15:15 Pulse Ox 96 01/20/25 15:15 FiO2 30 01/18/25 04:00 Intake & Output 01/19/25 01/20/25 01/20/25 18:59 06:59 18:59 Intake Total 620 20 20 Output Total 550 150 25 Balance 70 -130 -5 Weight 116 kg Intake: IV 20 20 20 Invasive Line 1 20 20 20 Intake, IV Titration 100 Amount DAPTOmycin 400 mg In 50 Sodium Chloride 0.9% 50 ml @ 100 mls/hr IVPB Q48H [facility] Rx#:[id number] cefTRIAXone 2 gm In 50 Sodium Chloride 0.9% 50 ml @ 100 mls/hr IVPB Q24HR [facility] Rx#:[id number] Hemodialysis 500 Output: Urine 50 150 25 Uretheral (Astorga) 50 50 25 Stool 0 Hemodialysis 500 Hemodialysis Net Amount 0 Other: Voiding Method Indwelling Catheter Indwelling Catheter Indwelling Catheter # Bowel Movements 2 1 - Labs CBC & Chem 7: 01/21/25 05:26 01/21/25 05:26 Labs: Microbiology - Last 24 Hours (Table) 01/14/25 10:14 Blood Culture - Final Blood
--- NOTE | 2025-01-20 16:07 | P.PN ---
Subjective Progress Note Date: 01/20/25 01/20/2025: Patient was seen for follow-up. Patient is getting hemodialysis. Per maintenance parts technician, patient could not undergo hemodialysis yesterday because he was getting bradycardic, as low as 33. Now he is getting hemodialysis, the heart rate is going down to 37's range. At present it is 47. On asking how he is feeling, states "I do not know". Denies headache. States "I need some water". Offers no complaints. 01/19/2025: Patient was initially seen by Dr. Imtiaz Snider. Please refer to his note for details. Patient is a 74-year-old male with history of seizure with altered mental status. Dr. Snider felt it was likely due to acute kidney injury. Patient is on dialysis. He is improving. Dr. Snider canceled EEG, as patient was improving and felt was from SIMRAN. Patient was seen for the follow-up. Patient is laying in the bed, saying he is "okay". Patient is not on any oxygen or BiPAP at this time. Patient denies headache. He does complain of backache. He rates it 9/10. He claims it is normal in the lower back. Some of the workup during this hospital visit consisted of: Creatinine during this admission is as high as 5.10 and at baseline it is between 1-3. BUN is as high as 120 ---> trending down Sodium is 128 and currently is 129 Ammonia is 21 I reviewed the rest of the lab workup Urine analysis seems suggestive of acute urinary tract infection CT of the head is reported as no acute bleed or mass effect. Multiple remote infarct as described above. I personally reviewed the CT and I agree with there is no acute process. He does have old strokes. Objective - Vital Signs Vital signs: Vital Signs Temp 98.3 F 01/20/25 15:15 Pulse 41 L 01/20/25 15:15 Resp 18 01/20/25 15:15 BP 150/69 01/20/25 15:15 Pulse Ox 96 01/20/25 15:15 FiO2 30 01/18/25 04:00 Intake & Output 01/19/25 01/20/25 01/20/25 18:59 06:59 18:59 Intake Total 620 20 20 Output Total 550 150 25 Balance 70 -130 -5 Weight 116 kg Intake: IV 20 20 20 Invasive Line 1 20 20 20 Intake, IV Titration 100 Amount DAPTOmycin 400 mg In 50 Sodium Chloride 0.9% 50 ml @ 100 mls/hr IVPB Q48H [facility] Rx#:[id number] cefTRIAXone 2 gm In 50 Sodium Chloride 0.9% 50 ml @ 100 mls/hr IVPB Q24HR [facility] Rx#:[id number] Hemodialysis 500 Output: Urine 50 150 25 Uretheral (Astorga) 50 50 25 Stool 0 Hemodialysis 500 Hemodialysis Net Amount 0 Other: Voiding Method Indwelling Catheter Indwelling Catheter Indwelling Catheter # Bowel Movements 2 1 - Exam Patient is an elderly male, who appears older than his stated age. Patient does not know the month of the year or what building he is in. Please refer to history above. 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 He was able to hold his arms up in the ER, without any droop. He can wiggle his feet. He has bandages in the whole right foot and the left bauer. He has significant peripheral edema. - Labs CBC & Chem 7: 01/19/25 05:40 01/19/25 05:40 Labs: Microbiology - Last 24 Hours (Table) 01/14/25 10:14 Blood Culture - Final Blood Assessment and Plan Assessment: This is a 74-year-old gentleman with history of seizure who presents emergency department because of altered mental status. He has acute kidney injury with hyponatremia and today he had temporary dialysis catheter placement. Patient is in respiratory distress and he is on BiPAP Altered mental status due toxic-metabolic encephalopathy. Patient has acute kidney injury, hyponatremia, also has hypoxic encephalopathy for past two days getting dialysis, he is off BiPAP today--mentation is improving today. His confusion is not due to breakthrough seizure Acute on chronic kidney injury status post temporary catheter dialysis on 01/16/2025 Patient has UTI and cellulitis of the left leg. ID following. Cultures have grown Proteus and MRSA. Hyponatremia Acute respiratory distress, improved History of seizures History of strokes Sepsis Diabetes Anemia Plan: Patient has toxic metabolic encephalopathy. Previously he was not able to recei ve EEG because of either getting dialysis, or on BiPAP. We will follow clinically. Apparently mentation has improved, but continues to have somewhat metabolic encephalopathy. Patient is resumed on his home medication of Depakote and he is on gabapentin. Pulmonary team is on board Nephrology team is on board. Patient getting hemodialysis. ID team is on board. Patient currently on daptomycin and ceftriaxone 2 g every 24 hours. Will defer the rest of the medical management to primary and other specialist Condition is guarded.
[2025-01-20 16:29] LABS: Glucose,Whole Blood 96 mg/dL (70-110)
[2025-01-20 20:26] LABS: Glucose,Whole Blood 99 mg/dL (70-110)
[2025-01-21 06:14] LABS: Glucose,Whole Blood 94 mg/dL (70-110)
[2025-01-21 07:17] LABS: Basophils # (A) 0.07 10*3/uL (0.00-0.10); Basophils % (A) 0.9 %; Eosinophils # (A) 1.13 10*3/uL (0.04-0.35); Eosinophils % (A) 14.4 %; HCT 27.5 % (39.6-50.0); HGB 8.7 g/dL (13.0-17.0); Lymphocytes # (A) 1.76 10*3/uL (0.90-5.00); Lymphocytes % (A) 22.4 %; MCH 28.2 pg (27.0-32.0); MCHC 31.6 g/dL (32.0-37.0); MCV 89.3 fL (80.0-97.0); Mean Platelet Volume 9.3 fL (9.5-12.2); Monocytes # (A) 0.81 10*3/uL (0.20-1.00); Monocytes % (A) 10.3 %; Neutrophils # (A) 3.95 10*3/uL (1.80-7.70); Neutrophils % (A) 50.2 %; Platelet Count 318 10*3/uL (140-440); RBC 3.08 10*6/uL (4.40-5.60); RDW 16.2 % (11.5-14.5); WBC 7.86 10*3/uL (4.50-10.00)
[2025-01-21 07:43] LABS: African American GFR (CKD) 16 (>60 ml/min/1.73 sqM); Anion Gap 13 mmol/L; Blood Urea Nitrogen 57 mg/dL (9-20); Carbon Dioxide 22 mmol/L (22-30); Chloride 95 mmol/L (98-107); Glucose 83 mg/dL (74-99); Non-African American GFR(CKD) 14 (>60 ml/min/1.73 sqM); Sodium 130 mmol/L (137-145)
[2025-01-21 07:50] LABS: Magnesium 2.5 mg/dL (1.6-2.3); Potassium 5.4 mmol/L (3.5-5.1)
--- NOTE | 2025-01-21 10:02 | P.PN ---
Subjective Patient is seen for follow-up for acute kidney injury and chronic kidney disease. Currently maintained on hemodialysis. Status post hemodialysis today. Patient did not tolerate treatment very well however he was able to finish with 1 L UF. Heart rate was low at about 37 to 39 bpm. Hemodynamically stable. Has indwelling Astorga catheter with 24-hour urine output charted at about 200 mL Objective - Vital Signs Vital signs: Vital Signs Temp 98.4 F 01/21/25 07:34 Pulse 63 01/21/25 07:43 Resp 16 01/21/25 07:34 BP 159/72 01/21/25 07:34 Pulse Ox 95 01/21/25 07:34 FiO2 30 01/18/25 04:00 Intake & Output 01/20/25 01/21/25 01/21/25 18:59 06:59 18:59 Intake Total 920 20 10 Output Total 2925 125 30 Balance -2004 -20 Weight 116 kg Intake: IV 20 20 10 Invasive Line 1 20 20 10 Hemodialysis 900 Output: Urine 25 125 30 Uretheral (Astorga) 25 25 30 Stool 0 Hemodialysis 1900 Hemodialysis Net Amount 1000 Other: Voiding Method Indwelling Catheter Indwelling Catheter Indwelling Catheter # Bowel Movements 1 1 1 - Exam Patient is asleep but opens eyes. He does not communicate much Examination of the heart S1 and S2 Examination of the lungs bilateral breath sounds are heard Abdomen is soft nontender Examination of lower extremities shows they are wrapped - Labs CBC & Chem 7: 01/21/25 05:26 01/21/25 05:26 Labs: Abnormal Lab Results - Last 24 Hours (Table) 01/21/25 01/21/25 Range/Units 05:26 05:26 RBC 3.08 L (4.40-5.60) 10*6/uL Hgb 8.7 L (13.0-17.0) g/dL Hct 27.5 L (39.6-50.0) % MCHC 31.6 L (32.0-37.0) g/dL MPV 9.3 L (9.5-12.2) fL Immature Gran # 0.14 H (0.00-0.04) 10*3/uL Eosinophils # 1.13 H (0.04-0.35) 10*3/uL Sodium 130 L (137-145) mmol/L Potassium 5.4 H (3.5-5.1) mmol/L Chloride 95 L (98-107) mmol/L BUN 57 H (9-20) mg/dL Creatinine 4.09 H (0.66-1.25) mg/dL Calcium 8.0 L (8.4-10.2) mg/dL Magnesium 2.5 H (1.6-2.3) mg/dL Assessment and Plan Assessment: 1. Acute kidney injury secondary to ATN secondary to severe sepsis. Creatinine 5.1 dated January 16, 2025. Started on dialysis January 16, 2025. Has femoral cathet er. Kidney ultrasound from December 2024 showed no evidence of hydronephrosis. 2. Chronic kidney disease stage IIIa with baseline creatinine 1.2-1.4. 3. Chronic diastolic CHF and moderate aortic stenosis. 4. Hyperkalemia secondary to acute kidney injury and acidosis. Better. 5. Metabolic acidosis secondary to acute kidney injury and IV fluids. Also on metformin. Improved with bicarb drip and dialysis. 6. Hyponatremia secondary to acute kidney injury, hypervolemic. 7. Severe sepsis secondary to UTI. Also had recent cellulitis. On antibiotics. 8. Anemia due to acute illness and chronic kidney disease. On Aranesp. 9. Volume overload. 10. Hyperphosphatemia secondary to acute kidney injury. Will add binder once able to tolerate oral meds. Plan: Hemodialysis in AM. Patient did not tolerate dialysis well yesterday. He was able to finish with 1 L UF however his heart rate remained quite low in the 37-39 range.. Patient will not be able to receive dialysis as outpatient if his heart rate is below 48 to 50/min. Continue with Astorga catheter Monitor for recovery of renal function. Repeat labs in a.m.
[2025-01-21 11:19] LABS: Glucose,Whole Blood 105 mg/dL (70-110)
--- NOTE | 2025-01-21 13:11 | P.PN ---
Subjective Progress Note Date: 01/21/25 Hospital course: Patient is a 74-year-old male with a history of type 2 diabetes melitis, hypothyroidism, hypertension, atrial fibrillation was brought to the ER via EMS from senior care for altered mental status. History is obtained by reviewing ER and EMS notes. Patient was recently hospitalized for sepsis secondary to UTI and cellulitis of the left lower extremity and SIMRAN and was discharged on dap tomycin and ceftriaxone for 2 weeks, sent to senior care for rehabilitation. On arrival to the ED, patient was found to be hypoxic and was put on BiPAP. Initial laboratory evaluation WBC 13.45, hemoglobin 9.5, platelet count 676, sodium 138, potassium 5.8, chloride 92, bicarb 17, BUN 114, creatinine 4.55, glucose 227, magnesium 3.0, calcium 8.5, lactic acid 0.9, ALP 144, AST 20 ALT 20, creatinine kinase 130, NT proBNP 20 840, albumin 3.0. Urinalysis consistent with pyuria, hematuria and proteinuria. Chest x-ray shows no acute cardiopulmonary process. 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 EKG consistent with normal sinus rhythm with ventricular rate of 84 bpm, SD interval 144 ms, QRS duration 102 ms, QTc [address] T wave elevation noted. Normal R wave progression noted. Infectious disease was consulted. Nephrology was consulted. Patient is started on IV daptomycin and ceftriaxone. At the time of interview, patient is currently on BiPAP with a setting of 12/6 with a flow rate of 10 and oxygen at 30%. 01/16/2025: Patient seen and examined at the bedside. Patient continues to be on BiPAP. Patient is awake but not alert and oriented to time place and person. Lab work today shows WBC 7.82, hemoglobin 8.1, hematocrit 26.3, MCV 91.3, platelet count 581, sodium 129, potassium 5.2, BUN 20, creatinine 5.10, hemoglobin A1c 8.5, calcium 7.9, magnesium 3.0. Urine output was 500 mL in 24 hours. Patient to un dergo hemodialysis today and tomorrow. 01/17/2025 Patient seen and examined at side. Patient currently undergoing hemodialysis with a goal of 0.5 L. Hemodialysis yesterday with output of 0.5 L. Patient states but more alert and awake today. Follows verbal command. Continues to be on BiPAP. Urine cultures negative. Blood culture preliminary report shows no bacterial growth. WBC 9.06, hemoglobin 8.5, sodium 132, potassium 12.5, BUN 101, creatinine 4.62, calcium 8.1, magnesium 2.9. 01/18/2025 Patient seen and examined at the bedside. Patient lying comfortably on the bed. Currently getting hemodialysis. 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 Slightly more awake alert compared to yesterday. He is following verbal commands. White cell count was 9.8, hemoglobin 9.0, hematocrit 28.5, platelet count 509, sodium 132, potassium 5.1, BUN 38, creatinine 4.68, calcium 8.1, magnesium 2.7. 01/19/2025. Patient seen examined. Patient was undergoing dialysis but could not complete the cycle today because of episodes of bradycardia. Patient is currently on room air. Patient is alert but mental status waxes and wanes. Labs reviewed showed WBC 9.03, hemoglobin 8.5, sodium 135, potassium 4.5, BUN 45, creatinine 4.30 01/20/2025 no new labs from today. Patient seen and examined at the bedside. No acute events overnight. Patient to undergo hemodialysis session today. Patient could not complete the hemodialysis yesterday because of the bradycardic episodes. She is currently on room air and is hemodynamically stable. No new labs from today. 01/21. Patient seen and examined. Patient did tolerate dialysis yesterday but his heart rate is ranging in the low 40s. Discussed with nephrology, they suggested that if patient heart rate continues to be in the 40s patient may not be able to undergo outpatient dialysis Physical examination: General: non toxic, no distress, appears at stated age, obese Derm: Multiple chronic lesions on bilateral extremities, legs wrapped Head: atraumatic, normocephalic, symmetric Eyes: EOMI, no lid lag, anicteric sclera, pupils equal round reactive to light ENT: Nose and ears atraumatic, Cardiovascular: S1S2 reg, no murmur 3+ lower extremity pitting edema Lungs: CTA bilateral, diminished at the bases Abdominal: soft, nontender to palpation, no guarding Ext: muscle strength 5 out of 5 in all 4 extremities grossly, no gross muscle atrophy, no contractures, Neuro: CN II-XI grossly intact, no gross focal neuro deficits Psych: Alert, oriented, appropriate affect Assessment/Plan: This is a 74-year-old male with a history of type 2 diabetes melitis, hypothyroidism, hypertension, atrial fibrillation was brought to the ER via EMS from senior care for altered mental status. Case was discussed with the E mergency Room provider and decision was made to admit the patient for acute toxic metabolic encephalopathy, SIMRAN, UTI Active: #Sepsis secondary to UTI #SIMRAN secondary to ATN secondary to sepsis #Hypervolemic hyponatremia #Hyperkalemia secondary to SIMRAN #Hypermagnesemia #Acute toxic metabolic encephalopathy secondary to above #Bilateral lower extremity cellulitis Continue with IV Rocephin and IV daptomycin Blood culture urine culture negative ID following, appreciate recommendation Nephrology following, recommendations noted from 01/21 #Acute hypoxic respiratory failure, was on BiPAP, currently on room air #Volume overload #HFpEF, not in exacerbation Continue oxygen supplementation Use of BiPAP as needed Echocardiogram was done on 12/30/2024 showed preserved LV function of 55 to 60% with moderate . Pulmonology following #History of seizure disorder Neurology on board, EEG today Continue Depakote 125 mg p.o. twice daily #Anemia of the chronic disease, baseline between - Low hemoglobin of 8.1 likely secondary to hemo-dilution Continue monitor hemoglobin No active bleeding Transfuse with packed RBC if hemoglobin less than 7 #Type 2 diabetes Continue Lantus 20 units subcu daily Continue patient on sliding scale insulin Monitor for hypoglycemia #Generalized weakness PT and OT consulted Objective - Vital Signs Vital signs: Vital Signs Temp 98.7 F 01/21/25 11:39 Pulse 41 L 01/21/25 11:39 Resp 16 01/21/25 11:39 BP 141/71 01/21/25 11:39 Pulse Ox 93 L 01/21/25 11:39 FiO2 30 01/18/25 04:00 Intake & Output 01/20/25 01/21/25 01/21/25 18:59 06:59 18:59 Intake Total 920 20 10 Output Total 2925 125 30 Balance -2004 Weight 116 kg Intake: IV 20 20 10 Invasive Line 1 20 20 10 Hemodialysis 900 Output: Urine 25 125 30 Uretheral (Astorga) 25 25 30 Stool 0 Hemodialysis 1900 Hemodialysis Net Amount 1000 Other: Voiding Method Indwelling Catheter Indwelling Catheter Indwelling Catheter # Bowel Movements 1 1 1 - Labs CBC & Chem 7: 01/21/25 05:26 01/21/25 05:26 Labs: Abnormal Lab Results - Last 24 Hours (Table) 01/21/25 01/21/25 Range/Units 05:26 05:26 RBC 3.08 L (4.40-5.60) 10*6/uL Hgb 8.7 L (13.0-17.0) g/dL Hct 27.5 L (39.6-50.0) % MCHC 31.6 L (32.0-37.0) g/dL MPV 9.3 L (9.5-12.2) fL Immature Gran # 0.14 H (0.00-0.04) 10*3/uL Eosinophils # 1.13 H (0.04-0.35) 10*3/uL Sodium 130 L (137-145) mmol/L Potassium 5.4 H (3.5-5.1) mmol/L Chloride 95 L (98-107) mmol/L BUN 57 H (9-20) mg/dL Creatinine 4.09 H (0.66-1.25) mg/dL Calcium 8.0 L (8.4-10.2) mg/dL Magnesium 2.5 H (1.6-2.3) mg/dL
--- NOTE | 2025-01-21 14:45 | P.PN ---
Subjective Progress Note Date: 01/21/25 Principal diagnosis: Reason for follow-up is left lower extremity cellulitis UTI Patient is a 74-year-old male with a past medical history significant for hypertension hyperlipidemia heart failure atrial fibrillation recent admitted to this facility with extensive left lower extremity cellulitis patient local culture positive for MRSA Proteus along with Enterococcus faecalis for which the patient got midline and was advised a 10-day course of IV Rocephin and daptomycin not been sent to the hospital with hypoxemia and mental status changes did have a positive UA. On today's evaluation that is 01/21/2025, the patient continues to be afebrile, the patient is on room air and breathing comfortably, the Pt seem to be slightly more awake and alert today denies any chest pain no cough no diarrhea no changes reported by the nursing staff. Patient white count 7.86, creatinine 4.09 blood and urine culture have been negative Objective - Vital Signs Vital signs: Vital Signs Temp 98.7 F 01/21/25 11:39 Pulse 41 L 01/21/25 11:39 Resp 16 01/21/25 11:39 BP 141/71 01/21/25 11:39 Pulse Ox 93 L 01/21/25 11:39 FiO2 30 01/18/25 04:00 Intake & Output 01/20/25 01/21/25 01/21/25 18:59 06:59 18:59 Intake Total 920 20 20 Output Total 2925 125 30 Balance -2004 Weight 116 kg Intake: IV 20 20 20 Invasive Line 1 20 20 20 Hemodialysis 900 Output: Urine 25 125 30 Uretheral (Astorga) 25 25 30 Stool 0 Hemodialysis 1900 Hemodialysis Net Amount 1000 Other: Voiding Method Indwelling Catheter Indwelling Catheter Indwelling Catheter # Bowel Movements 1 1 1 - Exam GENERAL DESCRIPTION: An elderly male lying in bed in no distress RESPIRATORY SYSTEM: Unlabored breathing , decreased breath sounds at bases HEART: S1 S2 regular rate and rhythm , ABDOMEN: Soft , no tenderness EXTREMITIES: Left lower extremity swelling redness slightly decreased - Labs CBC & Chem 7: 01/21/25 05:26 01/21/25 05:26 Labs: Abnormal Lab Results - Last 24 Hours (Table) 01/21/25 01/21/25 Range/Units 05: 05: RBC 3.08 L (4.40-5.60) 10*6/uL Hgb 8.7 L (13.0-17.0) g/dL Hct 27.5 L (39.6-50.0) % MCHC 31.6 L (32.0-37.0) g/dL MPV 9.3 L (9.5-12.2) fL Immature Gran # 0.14 H (0.00-0.04) 10*3/uL Eosinophils # 1.13 H (0.04-0.35) 10*3/uL Sodium 130 L (137-145) mmol/L Potassium 5.4 H (3.5-5.1) mmol/L Chloride 95 L (98-107) mmol/L BUN 57 H (9-20) mg/dL Creatinine 4.09 H (0.66-1.25) mg/dL Calcium 8.0 L (8.4-10.2) mg/dL Magnesium 2.5 H (1.6-2.3) mg/dL Assessment and Plan (1) Encephalopathy Current Visit: Yes Status: Acute Code(s): G93.40 - ENCEPHALOPATHY, UNSPECIFIED SNOMED Code(s): 85661498 (2) UTI (urinary tract infection) Current Visit: Yes Status: Acute Code(s): N39.0 - URINARY TRACT INFECTION, SITE NOT SPECIFIED SNOMED Code(s): 52559419 (3) Cellulitis of left leg Current Visit: No Status: Acute Code(s): L03.116 - CELLULITIS OF LEFT LOWER LIMB SNOMED Code(s): 63613839454507659 Plan: 1patient presented to hospital with mental status changes lethargy which is likely multifactorial in this patient noticed to have significant worsening of his kidney function and this patient was getting treatment for his left lower extremity wound and cellulitis which has shown some improvement but not complete resolution of the left lower extremity cellulitis, with recent culture positive for Proteus and MRSA 2-patient also has a positive UA however culture have been negative 3-patient is afebrile white count has normalized, 4patient is currently being treated with daptomycin and Rocephin as patient did have evidence of significant cellulitis to the left lower extremity though has slightly decreased in intensity Dictation was produced using [employer] dictation software. please excuse any grammatical, word or spelling errors. Time with Patient: Less than 30
[2025-01-21 16:41] LABS: Glucose,Whole Blood 107 mg/dL (70-110)
[2025-01-21] MEDS: MONTELUKAST 10 MG TAB PO SCH (20:08)
[2025-01-21 20:44] LABS: Glucose,Whole Blood 127 mg/dL (70-110)
[2025-01-21 22:38] LABS: African American GFR (CKD) 14 (>60 ml/min/1.73 sqM); Anion Gap 12 mmol/L; Blood Urea Nitrogen 78 mg/dL (9-20); Calcium 8.3 mg/dL (8.4-10.2); Carbon Dioxide 23 mmol/L (22-30); Chloride 90 mmol/L (98-107); Glucose 116 mg/dL (74-99); Magnesium 2.6 mg/dL (1.6-2.3); Non-African American GFR(CKD) 12 (>60 ml/min/1.73 sqM); Potassium 4.7 mmol/L (3.5-5.1); Sodium 125 mmol/L (137-145)
[2025-01-22 05:53] LABS: Glucose,Whole Blood 102 mg/dL (70-110)
[2025-01-22 07:47] LABS: Basophils # (A) 0.04 10*3/uL (0.00-0.10); Basophils % (A) 0.5 %; Eosinophils # (A) 1.04 10*3/uL (0.04-0.35); Eosinophils % (A) 13.6 %; HCT 28.1 % (39.6-50.0); Lymphocytes # (A) 1.67 10*3/uL (0.90-5.00); Lymphocytes % (A) 21.9 %; MCH 28.1 pg (27.0-32.0); MCV 87.8 fL (80.0-97.0); Mean Platelet Volume 8.9 fL (9.5-12.2); Monocytes # (A) 0.99 10*3/uL (0.20-1.00); Neutrophils % (A) 48.6 %; Platelet Count 272 10*3/uL (140-440); RDW 15.9 % (11.5-14.5); WBC 7.62 10*3/uL (4.50-10.00)
[2025-01-22 08:11] LABS: ALT 13 U/L (4-49); AST 22 U/L (17-59); Albumin 2.8 g/dL (3.5-5.0); Alkaline Phosphatase 95 U/L (38-126); Anion Gap 14 mmol/L; Blood Urea Nitrogen 80 mg/dL (9-20); Calcium 8.2 mg/dL (8.4-10.2); Carbon Dioxide 21 mmol/L (22-30); Chloride 91 mmol/L (98-107); Glucose 99 mg/dL (74-99); Potassium 4.8 mmol/L (3.5-5.1); Sodium 126 mmol/L (137-145); Total Bilirubin 0.4 mg/dL (0.2-1.3); Total Protein 7.6 g/dL (6.3-8.2)
[2025-01-22 08:18] LABS: African American GFR (CKD) 15 (>60 ml/min/1.73 sqM); Non-African American GFR(CKD) 13 (>60 ml/min/1.73 sqM)
--- NOTE | 2025-01-22 09:39 | P.PN ---
Subjective Patient is seen for follow-up for acute kidney injury and chronic kidney disease. Currently maintained on hemodialysis. Seen on hemodialysis. Heart rate staying about 50 today. Patient is more awake today. Has indwelling Astorga catheter with 8-hour urine output charted at about 300 mL Objective - Vital Signs Vital signs: Vital Signs Temp 97.1 F L 01/22/25 03:45 Pulse 50 L 01/22/25 03:45 Resp 12 01/22/25 03:45 BP 167/71 01/22/25 03:45 Pulse Ox 97 01/22/25 03:45 FiO2 30 01/18/25 04:00 Intake & Output 01/21/25 01/22/25 01/22/25 18:59 06:59 18:59 Intake Total 660 120 Output Total 105 200 Balance 555 -80 Weight 116 kg Intake: IV 20 Invasive Line 1 20 Intake, IV Titration 100 Amount DAPTOmycin 400 mg In 50 Sodium Chloride 0.9% 50 ml @ 100 mls/hr IVPB Q48H [facility] Rx#:[id number] cefTRIAXone 2 gm In 50 Sodium Chloride 0.9% 50 ml @ 100 mls/hr IVPB Q24HR [facility] Rx#:[id number] Oral 540 120 Output: Urine 105 200 Uretheral (Astorga) 105 Other: Voiding Method Indwelling Catheter Indwelling Catheter # Bowel Movements 1 1 - Exam Patient is asleep but opens eyes. He does not communicate much Examination of the heart S1 and S2 Examination of the lungs bilateral breath sounds are heard Abdomen is soft nontender Examination of lower extremities shows they are wrapped - Labs CBC & Chem 7: 01/22/25 07:20 01/22/25 07:20 Labs: Abnormal Lab Results - Last 24 Hours (Table) 01/21/25 01/21/25 01/22/25 Range/Units 20:42 21:57 07:20 RBC 3.20 L (4.40-5.60) 10*6/uL Hgb 9.0 L (13.0-17.0) g/dL Hct 28.1 L (39.6-50.0) % MPV 8.9 L (9.5-12.2) fL Immature Gran # 0.18 H (0.00-0.04) 10*3/uL Eosinophils # 1.04 H (0.04-0.35) 10*3/uL Sodium 125 L (137-145) mmol/L Chloride 90 L (98-107) mmol/L Carbon Dioxide (22-30) mmol/L BUN 78 H (9-20) mg/dL Creatinine 4.47 H (0.66-1.25) mg/dL Glucose 116 H (74-99) mg/dL POC Glucose (mg/dL) 127 H (70-110) mg/dL Calcium 8.3 L (8.4-10.2) mg/dL Magnesium 2.6 H (1.6-2.3) mg/dL Albumin (3.5-5.0) g/dL 01/22/25 Range/Units 07:20 RBC (4.40-5.60) 10*6/uL Hgb (13.0-17.0) g/dL Hct (39.6-50.0) % MPV (9.5-12.2) fL Immature Gran # (0.00-0.04) 10*3/uL Eosinophils # (0.04-0.35) 10*3/uL Sodium 126 L (137-145) mmol/L Chloride 91 L (98-107) mmol/L Carbon Dioxide 21 L (22-30) mmol/L BUN 80 H (9-20) mg/dL Creatinine 4.30 H (0.66-1.25) mg/dL Glucose (74-99) mg/dL POC Glucose (mg/dL) (70-110) mg/dL Calcium 8.2 L (8.4-10.2) mg/dL Magnesium (1.6-2.3) mg/dL Albumin 2.8 L (3.5-5.0) g/dL Assessment and Plan Assessment: 1. Acute kidney injury secondary to ATN secondary to severe sepsis. Creatinine 5.1 dated January 16, 2025. Started on dialysis January 16, 2025. Has femoral catheter. Kidney ultrasound from December 2024 showed no evidence of hydronephrosis. 2. Chronic kidney disease stage IIIa with baseline creatinine 1.2-1.4. 3. Chronic diastolic CHF and moderate aortic stenosis. 4. Hyperkalemia secondary to acute kidney injury and acidosis. Better. 5. Metabolic acidosis secondary to acute kidney injury and IV fluids. Also on metformin. Improved with bicarb drip and dialysis. 6. Hyponatremia secondary to acute kidney injury, hypervolemic. 7. Severe sepsis secondary to UTI. Also had recent cellulitis. On antibiotics. 8. Anemia due to acute illness and chronic kidney disease. On Aranesp. 9. Volume overload. 10. Hyperphosphatemia secondary to acute kidney injury. Will add binder once able to tolerate oral meds. Plan: Repeat hemodialysis in am as long as he remains hemodynamically stable. Patient will not be able to receive dialysis as outpatient if his heart rate is below 48 to 50/min during dialysis.. Continue with Astorga catheter Monitor for recovery of renal function. Repeat labs in a.m.
--- NOTE | 2025-01-22 10:02 | P.CRDCN ---
History of Present Illness History of present illness: HISTORY OF PRESENT ILLNESS: This is a 74-year-old male with a past medical history significant for paroxysmal atrial fibrillation, seizure disorder, anemia, and diabetes. Patient does not follow with a box toe flanger stitchdowns. We have been asked to see the patient in consultation for bradycardia. Patient examined at the bedside. Patient was brought to the hospital from his retirement secondary to altered mental status. Patient was found to have sepsis secondary to UTI. Additionally patijody machado was found to be in acute renal failure and was initiated on hemodialysis. Dialysis nurse present at the time of examination and states they were having issues with patient tolerating dialysis this weekend with his heart rates dropping into the 30s. However he is currently undergoing hemodialysis with a heart rate in the 50s. Patient denies any chest pain or pressure. Denies any shortness of breath. DIAGNOSTICS: - EKG reveals sinus mechanism with no signs of acute ischemia. - Chest xray 01/17/2025 revealing similar mild interstitial prominence, possible mild pulmonary vascular congestion - Laboratory data: WBC 7.62. Hemoglobin 9.0. Platelet count 272. Sodium 126. Potassium 4.8. BUN 80. Creatinine 4.30. - Current home cardiac medications include aspirin 81 mg daily, Lipitor 20 mg at night. - Most recent echocardiogram obtained in October 2024 reveals EF 55 to 60%, trace MR, moderate aortic stenosis with peak gradient 31 mmHg and mean gradient 21 mmHg. - Cardiac catheterization history: Unknown REVIEW OF SYSTEMS: At the time of my exam: CONSTITUTIONAL: Denies fever or chills. HEENT: Denies blurred vision, vision changes, or eye pain. Denies hemoptysis CARDIOVASCULAR: Denies chest pain. Denies orthopnea. Denies PND. Denies palpitations RESPIRATORY: Denies shortness of breath. GASTROINTESTINAL: Denies abdominal pain. Denies nausea or vomiting. HEMATOLOGIC: Denies bleeding disorders. GENITOURINARY: Denies any blood in urine. SKIN: Denies pruitis. Denies rash. PHYSICAL EXAM: VITAL SIGNS: Reviewed. GENERAL: Well-developed in no acute distress. HEENT: Head is normocephalic. Pupils are equal, round. Sclerae anicteric. Mucous membranes of the mouth are moist. Neck supple. No JVD or thyromegaly LUNGS: Respirations even and unlabored. Lungs essentially clear to auscultation bilaterally. HEART: Regular rate and rhythm. S1 and S2 heard. Systolic murmur noted. ABDOMEN: Soft. Nondistended. Nontender. EXTREMITIES: Normal range of motion. No clubbing or cyanosis. Peripheral pulses intact. No lower extremity edema NEUROLOGIC: Awake and alert. ASSESSMENT: UTI with sepsis Acute renal failure requiring initiation of hemodialysis Sinus bradycardia with PACs with heart rates in the 30s Paroxysmal atrial fibrillation Moderate aortic stenosis Hyponatremia History of seizure disorder History of anemia History of diabetes Obesity: BMI 33.7 PLAN: No need to obtain echocardiogram as this was performed in October 2024 Patient has a history of paroxysmal atrial fibrillation. However he is not anticoagulated on an outpatient basis. Reason unknown. Begin hyoscyamine 0.375 mg twice daily Continue telemetry monitoring Continue hemodialysis per nephrology Further recommendations pending patient course Nurse practitioner note has been reviewed by physician. Signing provider agrees with the documented findings, assessment, and plan of care documented by [employer] DES[employer] ENGINEER as a scribe. Past Medical History Past Medical History: Atrial Fibrillation, Heart Failure, Hyperlipidemia, Hypertension, Renal Disease, Syncope Additional Past Medical History / Comment(s): anemia, UTI, Hypothyroid, depression, dysphagia History of Any Multi-Drug Resistant Organisms: None Reported Date of last positivie culture/infection: 01/02/25 MDRO Source:: rt 1st toe Additional Past Surgical History / Comment(s): unknown Past Anesthesia/Blood Transfusion Reactions: No Reported Reaction Past Psychological History: No Psychological Hx Reported Smoking Status: Unknown if ever smoked Past Alcohol Use History: None Reported Past Drug Use History: None Reported - Past Family History Father History Unknown: Yes Mother History Unknown: Yes Medications and Allergies Home Medications Medication Instructions Recorded Confirmed Type Aspirin [[place] Aspirin EC] 81 mg PO HS 12/24/18 01/14/25 History Atorvastatin [Lipitor] 20 mg PO HS@199912/24/18 01/14/25 History Cholecalciferol [Vitamin D3 (25 75 mcg PO DAILY 01/13/23 01/14/25 History Mcg = 1000 Iu)] Ferrous Sulfate [Iron (65 MG 325 mg PO HS 01/13/23 01/14/25 History Elemental)] Lactulose 20 gm PO DAILY 01/13/23 01/14/25 History Magnesium Oxide [Magox 400] 400 mg PO HS 01/13/23 01/14/25 History Melatonin 3 mg PO 01/13/23 01/14/25 History DULoxetine HCL [Cymbalta] 60 mg PO DAILY@0700 12/29/24 01/14/25 History Divalproex Sprinkle [Depakote 125 mg PO BID@0700,1600 12/29/24 01/14/25 History Sprinkle] Docusate [Colace] 100 mg PO BID 12/29/24 01/14/25 History Gabapentin [Neurontin] 300 mg PO TID@0700,1300,1900 12/29/24 01/14/25 History Icy Hot Advanced Relief 7.5% Patch 1 patch TRANSDERM DAILY@0700 12/29/24 01/14/25 History Ipratropium-Albuterol Nebulize 3 ml INHALATION RT-Q4H PRN 12/29/24 01/14/25 History [Duoneb 0.5 mg-3 mg/3 ml Soln] Levothyroxine Sodium [Synthroid] 88 mcg PO DAILY@0500 12/29/24 01/14/25 History Montelukast [Singulair] 10 mg PO HS@19012/29/24 01/14/25 History Naloxone HCl 0.4 mg SQ DIRECTED PRN 12/29/24 01/14/25 History Naloxone HCl 4 mg NASAL DIRECTED PRN 12/29/24 01/14/25 History Furosemide [Lasix] 40 mg PO DAILY #0 01/09/25 01/14/25 Rx Nystatin 100,000 Unit/gm Powd 1 applic TOPICAL BID each 01/09/25 01/14/25 Rx [Mycostatin Powder] Sodium Bicarbonate Tab 650 mg PO BID tab 01/09/25 01/14/25 Rx cefTRIAXone [Rocephin] 2 gm IVPB Q24H 14 Days #14 each 01/09/25 01/14/25 Rx oxyCODONE-APAP 10-325MG [Percocet 1 tab PO Q4H #6 tab 01/09/25 01/14/25 Rx 10-325 mg] 0.9 % Sodium Chloride [Sodium 10 ml IV QID 01/14/25 01/14/25 History Chloride Flush] Acetaminophen [Tylenol Arthritis] 650 mg PO Q6H PRN 01/14/25 01/14/25 History Ascorbic Acid [Vitamin C] 500 mg PO DAILY 01/14/25 01/14/25 History Brimonidine Tartrate [Alphagan P 1 drops BOTH EYES BID 01/14/25 01/14/25 History 0.2% Ophth Soln] DAPTOmycin [Cubicin] 400 mg IVPB DAILY@1300 01/14/25 01/14/25 History Fluticasone Propion/Salmeterol 1 puff INHALATION RT-BID 01/14/25 01/14/25 History [Fluticasone-Salmeterol 250-50] Heparin Sod (Pork) Lock Flush 3 ml IV BID@1300,2100 01/14/25 01/14/25 History Intravenous Solution 10unit/Ml Heparin Sodium,Porcine (1 ml) 5,000 unit SQ Q8H 01/14/25 01/14/25 History [Heparin Sodium] INSULIN LISPRO (HumaLOG) [HumaLOG] See Protocol SQ ACHS 01/14/25 01/14/25 History Insulin Glargine,Hum.rec.anlog 20 units SQ DAILY@0600 01/14/25 01/14/25 History [Lantus Solostar Pen] metFORMIN HCL [Glucophage] 500 mg PO BID@0700,1600 01/14/25 01/14/25 History Allergies Allergy/AdvReac Type Severity Reaction Status Date / Time No Known Allergies Allergy Verified 01/14/25 13:12 Physical Exam Vitals: Vital Signs Temp Pulse Resp BP BP Pulse Ox 01/22/25 09:48 97.8 F 55 L 18 120/62 96 01/22/25 03:45 97.1 F L 50 L 12 167/71 97 01/21/25 23:20 97.0 F L 58 L 12 156/62 96 01/21/25 19:35 97.0 F L 58 L 20 169/72 94 L 01/21/25 16:59 99.1 F 57 L 16 154/68 94 L 01/21/25 11:39 98.7 F 41 L 16 141/71 93 L Intake and Output 01/21/25 01/22/25 01/22/25 22:59 06:59 14:59 Intake Total 760 Output Total 75 200 Balance 685 -200 Intake: Intake, IV Titration 100 Amount DAPTOmycin 400 mg In 50 Sodium Chloride 0.9% 50 ml @ 100 mls/hr IVPB Q48H [facility] Rx#:[id number] cefTRIAXone 2 gm In 50 Sodium Chloride 0.9% 50 ml @ 100 mls/hr IVPB Q24HR [facility] Rx#:[id number] Oral 660 Output: Urine 75 200 Uretheral (Astorga) 75 Other: Voiding Method Indwelling Catheter Indwelling Catheter # Bowel Movements 1 1 Weight 116 kg Results 01/22/25 07:20 01/22/25 07:20 Cardiac Enzymes 01/22/25 Range/Units 07:20 AST 22 (17-59) U/L CBC 01/22/25 Range/Units 07:20 WBC 7.62 (4.50-10.00) 10*3/uL RBC 3.20 L (4.40-5.60) 10*6/uL Hgb 9.0 L (13.0-17.0) g/dL Hct 28.1 L (39.6-50.0) % Plt Count 272 (140-440) 10*3/uL Comprehensive Metabolic Panel 01/21/25 01/22/25 Range/Units 21:57 07:20 Sodium 125 L 126 L (137-145) mmol/L Potassium 4.7 4.8 (3.5-5.1) mmol/L Chloride 90 L 91 L (98-107) mmol/L Carbon Dioxide 23 21 L (22-30) mmol/L BUN 78 H 80 H (9-20) mg/dL Creatinine 4.47 H 4.30 H (0.66-1.25) mg/dL Glucose 116 H 99 (74-99) mg/dL Calcium 8.3 L 8.2 L (8.4-10.2) mg/dL AST 22 (17-59) U/L ALT 13 (4-49) U/L Alkaline Phosphatase 95 (38-126) U/L Total Protein 7.6 (6.3-8.2) g/dL Albumin 2.8 L (3.5-5.0) g/dL Current Medications Generic Name Dose Route Start Last Admin Trade Name Freq PRN Reason Stop Dose Admin Acetaminophen 650 mg 01/14/25 12:51 Acetaminophen Tab 325 Mg Tab PO Q6HR PRN Mild Pain or Fever > 100.5 Albuterol/Ipratropium 3 ml 01/15/25 08:12 01/17/25 08:26 Ipratropium-Albuterol 3 Ml Neb INHALATION 3 ml RT-Q4H PRN Administration Shortness Of Breath Or Wheezing Ascorbic Acid 500 mg 01/15/25 09:00 01/21/25 07:20 Ascorbic Acid 500 Mg Tab PO 500 mg DAILY SAMANTHA Administration Aspirin 81 mg 01/15/25 21:00 01/21/25 20:12 Aspirin 81 Mg PO 81 mg HS SAMANTHA Administration Atorvastatin Calcium 20 mg 01/15/25 20:00 01/21/25 20:08 Atorvastatin 20 Mg Tab PO 20 mg HS@2000 SAMANTHA Administration Brimonidine Tartrate 1 drops 01/15/25 09:00 01/21/25 20:38 Brimonidine Tartrate 0.2% Drops 5 Ml Btl BOTH EYES 1 drops BID SAMANTHA Administration Budesonide/Formoterol Fumarate 2 puff 01/15/25 20:00 01/22/25 09:01 Symbicort 80-4.5 Mcg Inhaler INHALATION 2 puff RT-BID SAMANTHA Administration Cholecalciferol 75 mcg 01/15/25 09:00 01/21/25 07:20 Cholecalciferol 25 Mcg (1000 Iu) Tablet PO 75 mcg DAILY SAMANTHA Administration Darbepoetin Emanuel 40 mcg 01/17/25 11:00 01/17/25 12:41 Darbepoetin Emanuel 40 Mcg/0.4 Ml Syringe SQ 40 mcg Q7D SAMANTHA Administration Dextrose/Water 25 ml 01/15/25 13:39 Dextrose 50% Syringe 50 Ml IVP PER PROTOCOL PRN Hypoglycemia Protocol Dextrose/Water 50 ml 01/15/25 13:39 Dextrose 50% Syringe 50 Ml IVP PER PROTOCOL PRN Hypoglycemia Protocol Divalproex Sodium 125 mg 01/15/25 16:00 01/22/25 06:23 Divalproex Sprinkle 125 Mg Cap.Sprink PO 125 mg BID@0700,1600 SAMANTHA Administration Docusate Sodium 100 mg 01/15/25 09:00 01/21/25 20:08 Docusate 100 Mg Cap PO 100 mg BID SAMANTHA Administration Duloxetine HCl 60 mg 01/16/25 07:00 01/22/25 06:23 Duloxetine Hcl 60 Mg Capsule.Dr PO 60 mg DAILY@0700 SAMANTHA Administration Ferrous Sulfate 325 mg 01/15/25 21:00 01/21/25 20:09 Ferrous Sulfate 325 Mg Tab PO 325 mg HS SAMANTHA Administration Heparin Sodium (Porcine) 5,000 unit 01/15/25 08:15 01/21/25 23:19 Heparin Sodium,Porcine 5,000 Unit/Ml 1 Ml Vial SQ 5,000 unit Q8H SAMANTHA Administration Hyoscyamine 0.375 mg 01/22/25 09:15 Hyoscyamine Sulfate 0.375 Mg Tab.Er.12h PO BID SAMANTHA Daptomycin 400 mg/ Sodium 50 mls @ 100 mls/hr 01/15/25 09:00 01/21/25 08:06 Chloride IVPB 100 mls/hr Q48H SAMANTHA Administration Protocol Ceftriaxone Sodium 2 gm/ 50 mls @ 100 mls/hr 01/15/25 09:00 01/21/25 07:21 Sodium Chloride IVPB 100 mls/hr Q24HR [facility] Administration Protocol Insulin Glargine 20 unit 01/16/25 06:00 01/22/25 06:12 Insulin Glargine (Lantus) 100 Unit/Ml Syr SQ Not Given DAILY@0600 [facility] Insulin Human Lispro 0 unit 01/15/25 17:30 01/22/25 06:12 Insulin Lispro (Humalog) 100 Unit/Ml 10 Ml Vl SQ Not Given ACHS [facility] Protocol Lactulose 20 gm 01/15/25 09:00 01/21/25 07:22 Lactulose 20 Gm/30 Ml Cup PO Not Given DAILY [facility] Levothyroxine Sodium 88 mcg 01/16/25 05:00 01/22/25 06:23 Levothyroxine 88 Mcg Tab PO 88 mcg DAILY@0500 SAMANTHA Administration Melatonin 3 mg 01/15/25 21:00 01/21/25 20:09 Melatonin 3 Mg Tablet PO 3 mg HS SAMANTHA Administration Montelukast Sodium 10 mg 01/21/25 21:00 01/21/25 20:08 Montelukast 10 Mg Tab PO 10 mg HS SAMANTHA Administration Naloxone HCl 0.2 mg 01/14/25 12:51 Naloxone 0.4 Mg/Ml 1 Ml Vial IV Q2M PRN Opioid Reversal Petrolatum 1 applic 01/16/25 16:04 Zinc Oxide Paste (Z-Guard) 1 Applic TOPICAL Q2HR PRN [facility] He[facility] Protocol Intake and Output 01/21/25 01/22/25 01/22/25 22:59 06:59 14:59 Intake Total 760 Output Total 75 200 Balance 685 -200 Intake: Intake, IV Titration 100 Amount DAPTOmycin 400 mg In 50 Sodium Chloride 0.9% 50 ml @ 100 mls/hr IVPB Q48H [facility] Rx#:[id number] cefTRIAXone 2 gm In 50 Sodium Chloride 0.9% 50 ml @ 100 mls/hr IVPB Q24HR [facility] Rx#:[id number] Oral 660 Output: Urine 75 200 Uretheral (Astorga) 75 Other: Voiding Method Indwelling Catheter Indwelling Catheter # Bowel Movements 1 1 Weight 116 kg 01/22/25 07:20 01/22/25 07:20
[2025-01-22] MEDS: HYOSCYAMINE SULFATE 0.375 MG TAB.ER.12H PO SCH (11:47)
[2025-01-22 11:51] LABS: Glucose,Whole Blood 94 mg/dL (70-110)
--- NOTE | 2025-01-22 15:26 | P.PN ---
Subjective Progress Note Date: 01/22/25 Principal diagnosis: Reason for follow-up is left lower extremity cellulitis UTI Patient is a 74-year-old male with a past medical history significant for hypertension hyperlipidemia heart failure atrial fibrillation recent admitted to this facility with extensive left lower extremity cellulitis patient local culture positive for MRSA Proteus along with Enterococcus faecalis for which the patient got midline and was advised a 10-day course of IV Rocephin and daptomycin not been sent to the hospital with hypoxemia and mental status changes did have a positive UA. On today's evaluation that is 01/22/2025, Patient is afebrile patient is currently on room air patient is more awake today denies any chest pain no cough no abdominal pain or diarrhea. Patient white count 7.62, creatinine is 4.30 blood culture has been negative so far Objective - Vital Signs Vital signs: Vital Signs Temp 98.2 F 01/22/25 11:42 Pulse 52 L 01/22/25 11:42 Resp 16 01/22/25 11:42 BP 149/68 01/22/25 11:42 Pulse Ox 98 01/22/25 11:42 FiO2 30 01/18/25 04:00 Intake & Output 01/21/25 01/22/25 01/22/25 18:59 06:59 18:59 Intake Total 660 120 400 Output Total 843 [id number] [id number] Balance Weight 116 kg Intake: IV 20 Invasive Line 1 20 Intake, IV Titration 100 Amount DAPTOmycin 400 mg In 50 Sodium Chloride 0.9% 50 ml @ 100 mls/hr IVPB Q48H [facility] Rx#:[id number] cefTRIAXone 2 gm In 50 Sodium Chloride 0.9% 50 ml @ 100 mls/hr IVPB Q24HR [facility] Rx#:[id number] Oral 540 120 Hemodialysis 400 Output: Urine 105 200 300 Uretheral (Astorga) 105 Hemodialysis 1500 Hemodialysis Net Amount 1100 Other: Voiding Method Indwelling Catheter Indwelling Catheter Indwelling Catheter # Bowel Movements 1 1 - Exam GENERAL DESCRIPTION: An elderly male lying in bed in no distress RESPIRATORY SYSTEM: Unlabored breathing , decreased breath sounds at bases HEART: S1 S2 regular rate and rhythm , ABDOMEN: Soft , no tenderness EXTREMITIES: Left lower extremity swelling redness slightly decreased - Labs CBC & Chem 7: 01/22/25 07:20 01/22/25 07:20 Labs: Abnormal Lab Results - Last 24 Hours (Table) 01/21/25 01/21/25 01/22/25 Range/Units 20:42 21:57 07:20 RBC 3.20 L (4.40-5.60) 10*6/uL Hgb 9.0 L (13.0-17.0) g/dL Hct 28.1 L (39.6-50.0) % MPV 8.9 L (9.5-12.2) fL Immature Gran # 0.18 H (0.00-0.04) 10*3/uL Eosinophils # 1.04 H (0.04-0.35) 10*3/uL Sodium 125 L (137-145) mmol/L Chloride 90 L (98-107) mmol/L Carbon Dioxide (22-30) mmol/L BUN 78 H (9-20) mg/dL Creatinine 4.47 H (0.66-1.25) mg/dL Glucose 116 H (74-99) mg/dL POC Glucose (mg/dL) 127 H (70-110) mg/dL Calcium 8.3 L (8.4-10.2) mg/dL Magnesium 2.6 H (1.6-2.3) mg/dL Albumin (3.5-5.0) g/dL 01/22/25 Range/Units 07:20 RBC (4.40-5.60) 10*6/uL Hgb (13.0-17.0) g/dL Hct (39.6-50.0) % MPV (9.5-12.2) fL Immature Gran # (0.00-0.04) 10*3/uL Eosinophils # (0.04-0.35) 10*3/uL Sodium 126 L (137-145) mmol/L Chloride 91 L (98-107) mmol/L Carbon Dioxide 21 L (22-30) mmol/L BUN 80 H (9-20) mg/dL Creatinine 4.30 H (0.66-1.25) mg/dL Glucose (74-99) mg/dL POC Glucose (mg/dL) (70-110) mg/dL Calcium 8.2 L (8.4-10.2) mg/dL Magnesium (1.6-2.3) mg/dL Albumin 2.8 L (3.5-5.0) g/dL Assessment and Plan (1) Encephalopathy Current Visit: Yes Status: Acute Code(s): G93.40 - ENCEPHALOPATHY, UNSPECIFIED SNOMED Code(s): 64561452 (2) UTI (urinary tract infection) Current Visit: Yes Status: Acute Code(s): N39.0 - URINARY TRACT INFECTION, SITE NOT SPECIFIED SNOMED Code(s): 80596492 (3) Cellulitis of left leg Current Visit: No Status: Acute Code(s): L03.116 - CELLULITIS OF LEFT LOWER LIMB SNOMED Code(s): 48484815922484695 Plan: 1patient presented to hospital with mental status changes lethargy which is likely multifactorial in this patient noticed to have significant worsening of his kidney function and this patient was getting treatment for his left lower extremity wound and cellulitis which has shown some improvement but not complete resolution of the left lower extremity cellulitis, with recent culture positive for Proteus and MRSA 2-patient also has a positive UA however culture have been negative 3-patient is afebrile white count has normalized, 4patient left lower extremity swelling redness has decreased intensity continue with the daptomycin Rocephin for about a week on discharge Dictation was produced using [employer] dictation software. please excuse any grammatical, word or spelling errors. Time with Patient: Less than 30
--- NOTE | 2025-01-22 15:39 | P.PN ---
Subjective Progress Note Date: 01/22/25 Hospital course: Patient is a 74-year-old male with a history of type 2 diabetes melitis, hypothyroidism, hypertension, atrial fibrillation was brought to the ER via EMS from [facility] for altered mental status. History is obtained by reviewing ER and EMS notes. Patient was recently hospitalized for sepsis secondary to UTI and cellulitis of the left lower extremity and SIMRAN and was discharged on dap tomycin and ceftriaxone for 2 weeks, sent to [facility] for rehabilitation. On arrival to the ED, patient was found to be hypoxic and was put on BiPAP. Initial laboratory evaluation WBC 13.45, hemoglobin 9.5, platelet count 676, sodium 138, potassium 5.8, chloride 92, bicarb 17, BUN 114, creatinine 4.55, glucose 227, magnesium 3.0, calcium 8.5, lactic acid 0.9, ALP 144, AST 20 ALT 20, creatinine kinase 130, NT proBNP 20 840, albumin 3.0. Urinalysis consistent with pyuria, hematuria and proteinuria. Chest x-ray shows no acute cardiopulmonary process. 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 EKG consistent with normal sinus rhythm with ventricular rate of 84 bpm, IA interval 144 ms, QRS duration 102 ms, QTc [address] T wave elevation noted. Normal R wave progression noted. Infectious disease was consulted. Nephrology was consulted. Patient is started on IV daptomycin and ceftriaxone. At the time of interview, patient is currently on BiPAP with a setting of 12/6 with a flow rate of 10 and oxygen at 30%. 01/16/2025: Patient seen and examined at the bedside. Patient continues to be on BiPAP. Patient is awake but not alert and oriented to time place and person. Lab work today shows WBC 7.82, hemoglobin 8.1, hematocrit 26.3, MCV 91.3, platelet count 581, sodium 129, potassium 5.2, BUN 20, creatinine 5.10, hemoglobin A1c 8.5, calcium 7.9, magnesium 3.0. Urine output was 500 mL in 24 hours. Patient to undergo hemodialysis today and tomorrow. 01/17/2025 Patient seen and examined at side. Patient currently undergoing hemodialysis with a goal of 0.5 L. Hemodialysis yesterday with output of 0.5 L. Patient states but more alert and awake today. Follows verbal command. Continues to be on BiPAP. Urine cultures negative. Blood culture preliminary report shows no bacterial growth. WBC 9.06, hemoglobin 8.5, sodium 132, potassium 12.5, BUN 101, creatinine 4.62, calcium 8.1, magnesium 2.9. 01/18/2025 Patient seen and examined at the bedside. Patient lying comfortably on the bed. Currently getting hemodialysis. 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 Slightly more awake alert compared to yesterday. He is following verbal commands. White cell count was 9.8, hemoglobin 9.0, hematocrit 28.5, platelet count 509, sodium 132, potassium 5.1, BUN 38, creatinine 4.68, calcium 8.1, magnesium 2.7. 01/19/2025. Patient seen examined. Patient was undergoing dialysis but could not complete the cycle today because of episodes of bradycardia. Patient is currently on room air. Patient is alert but mental status waxes and wanes. Labs reviewed showed WBC 9.03, hemoglobin 8.5, sodium 135, potassium 4.5, BUN 45, creatinine 4.30 01/20/2025 no new labs from today. Patient seen and examined at the bedside. No acute events overnight. Patient to undergo hemodialysis session today. Patient could not complete the hemodialysis yesterday because of the bradycardic episodes. She is currently on room air and is hemodynamically stable. No new labs from today. 01/21. Patient seen and examined. Patient did tolerate dialysis yesterday but his heart rate is ranging in the low 40s. Discussed with nephrology, they suggested that if patient heart rate continues to be in the 40s patient may not be able to undergo outpatient dialysis 01/22/2025 Patient seen and examined at the bedside. No acute events overnight. Patient currently undergoing hemodialysis with a goal of 1 L. Patient tolerated dialysis yesterday and was bradycardic in his 40s. Lab work from today shows WBC 7.6, hemoglobin 9.0, sodium 126, BUN 80, creatinine 4.3. Physical examination: General: non toxic, no distress, appears at stated age, obese Derm: Multiple chronic lesions on bilateral extremities, legs wrapped Head: atraumatic, normocephalic, symmetric Eyes: EOMI, no lid lag, anicteric sclera, pupils equal round reactive to light ENT: Nose and ears atraumatic, Cardiovascular: S1S2 reg, no murmur 3+ lower extremity pitting edema Lungs: CTA bilateral, diminished at the bases Abdominal: soft, nontender to palpation, no guarding Ext: muscle strength 5 out of 5 in all 4 extremities grossly, no gross muscle atrophy, no contractures, Neuro: CN II-XI grossly intact, no gross focal neuro deficits Psych: Alert, oriented, appropriate affect Assessment/Plan: This is a 74-year-old male with a history of type 2 diabetes melitis, hypothyroidism, hypertension, atrial fibrillation was brought to the ER via EMS from [facility] for altered mental status. Case was discussed with the Emergency Room provider and decision was made to admit the patient for acute toxic metabolic encephalopathy, SIMRAN, UTI Active: #Sepsis secondary to UTI #SIMRAN secondary to ATN secondary to sepsis #Hypervolemic hyponatremia #Hyperkalemia secondary to SIMRAN #Hypermagnesemia #Acute toxic metabolic encephalopathy secondary to above #Bilateral lower extremity cellulitis Continue with IV Rocephin and IV daptomycin Blood culture urine culture negative ID following, appreciate recommendation Nephrology following, recommendations noted from 01/21 #Acute hypoxic respiratory failure, was on BiPAP, currently on room air #Volume overload #HFpEF, not in exacerbation Continue oxygen supplementation Use of BiPAP as needed Echocardiogram was done on 12/30/2024 showed preserved LV function of 55 to 60% with moderate . Pulmonology following #History of seizure disorder Neurology on board, EEG today Continue Depakote 125 mg p.o. twice daily #Anemia of the chronic disease, baseline between 10-11 Hemoglobin at 9 Continue monitor hemoglobin No active bleeding Transfuse with packed RBC if hemoglobin less than 7 #Type 2 diabetes Continue Lantus 20 units subcu daily Continue patient on sliding scale insulin Monitor for hypoglycemia #Generalized weakness PT and OT consulted CODE STATUS: DNI Attestation I have seen and examined this patient with my resident , discussed the same with the resident/ONDINA, and agree with the dictator's assessment and plan as written Dr. Augustin yin Objective - Vital Signs Vital signs: Vital Signs Temp 98.2 F 01/22/25 11:42 Pulse 52 L 01/22/25 11:42 Resp 16 01/22/25 11:42 BP 149/68 01/22/25 11:42 Pulse Ox 98 01/22/25 11:42 FiO2 30 01/18/25 04:00 Intake & Output 01/21/25 01/22/25 01/22/25 18:59 06:59 18:59 Intake Total 660 120 400 Output Total 137 864 1306 Balance Weight 116 kg Intake: IV 20 Invasive Line 1 20 Intake, IV Titration 100 Amount DAPTOmycin 400 mg In 50 Sodium Chloride 0.9% 50 ml @ 100 mls/hr IVPB Q48H SAMANTHA Rx#:[id number] cefTRIAXone 2 gm In 50 Sodium Chloride 0.9% 50 ml @ 100 mls/hr IVPB Q24HR SAMANTHA Rx#:[id number] Oral 540 120 Hemodialysis 400 Output: Urine 105 200 300 Uretheral (Astorga) 105 Hemodialysis 1500 Hemodialysis Net Amount 1100 Other: Voiding Method Indwelling Catheter Indwelling Catheter Indwelling Catheter # Bowel Movements 1 1 - Labs CBC & Chem 7: 01/25/25 15:39 01/26/25 06:14 Labs: Abnormal Lab Results - Last 24 Hours (Table) 01/21/25 01/21/25 01/22/25 Range/Units 20:42 21:57 07:20 RBC 3.20 L (4.40-5.60) 10*6/uL Hgb 9.0 L (13.0-17.0) g/dL Hct 28.1 L (39.6-50.0) % MPV 8.9 L (9.5-12.2) fL Immature Gran # 0.18 H (0.00-0.04) 10*3/uL Eosinophils # 1.04 H (0.04-0.35) 10*3/uL Sodium 125 L (137-145) mmol/L Chloride 90 L (98-107) mmol/L Carbon Dioxide (22-30) mmol/L BUN 78 H (9-20) mg/dL Creatinine 4.47 H (0.66-1.25) mg/dL Glucose 116 H (74-99) mg/dL POC Glucose (mg/dL) 127 H (70-110) mg/dL Calcium 8.3 L (8.4-10.2) mg/dL Magnesium 2.6 H (1.6-2.3) mg/dL Albumin (3.5-5.0) g/dL 01/22/25 Range/Units 07:20 RBC (4.40-5.60) 10*6/uL Hgb (13.0-17.0) g/dL Hct (39.6-50.0) % MPV (9.5-12.2) fL Immature Gran # (0.00-0.04) 10*3/uL Eosinophils # (0.04-0.35) 10*3/uL Sodium 126 L (137-145) mmol/L Chloride 91 L (98-107) mmol/L Carbon Dioxide 21 L (22-30) mmol/L BUN 80 H (9-20) mg/dL Creatinine 4.30 H (0.66-1.25) mg/dL Glucose (74-99) mg/dL POC Glucose (mg/dL) (70-110) mg/dL Calcium 8.2 L (8.4-10.2) mg/dL Magnesium (1.6-2.3) mg/dL Albumin 2.8 L (3.5-5.0) g/dL
[2025-01-22 16:54] LABS: Glucose,Whole Blood 117 mg/dL (70-110)
[2025-01-22] MEDS: ACETAMINOPHEN TAB 325 MG TAB PO PRN (20:13)
[2025-01-22 20:29] LABS: Glucose,Whole Blood 134 mg/dL (70-110)
[2025-01-23 06:12] LABS: Glucose,Whole Blood 99 mg/dL (70-110)
[2025-01-23 06:42] LABS: HGB 9.3 g/dL (13.0-17.0); MCH 29.2 pg (27.0-32.0); MCHC 33.2 g/dL (32.0-37.0); MCV 88.1 fL (80.0-97.0); Mean Platelet Volume 9.4 fL (9.5-12.2); Platelet Count 236 10*3/uL (140-440); RBC 3.18 10*6/uL (4.40-5.60); RDW 16.2 % (11.5-14.5); WBC 8.51 10*3/uL (4.50-10.00)
[2025-01-23 06:44] LABS: African American GFR (CKD) 19 (>60 ml/min/1.73 sqM); Anion Gap 13 mmol/L; Blood Urea Nitrogen 79 mg/dL (9-20); Calcium 8.3 mg/dL (8.4-10.2); Carbon Dioxide 21 mmol/L (22-30); Chloride 90 mmol/L (98-107); Glucose 94 mg/dL (74-99); Magnesium 2.4 mg/dL (1.6-2.3); Non-African American GFR(CKD) 17 (>60 ml/min/1.73 sqM); Potassium 4.9 mmol/L (3.5-5.1); Sodium 124 mmol/L (137-145)
[2025-01-23 08:55] LABS: Band Neutrophils % 1 %; Eosinophils # (M) 0.17 k/uL (0-0.7); Lymphocytes # (M) 1.96 k/uL (1.0-4.8); Monocytes # (M) 0.68 k/uL (0-1.0); Neutrophils % (M) 66 %; Nucleated Red Blood Cells 0 /100 WBC (0-0); Total Cells Counted 100
--- NOTE | 2025-01-23 09:02 | P.PN ---
Subjective Patient is seen in follow-up for acute kidney injury on chronic kidney disease. Has Astorga catheter. Urine output 600 cc in the last 24 hours. Mentation better. Has been eating. On room air. Tolerated dialysis well yesterday with 1 L ultrafiltration. Vital signs are stable. General: No acute distress. HEENT: On room air. LUNGS: No audible rhonchi or wheezes. HEART: Rate and Rhythm are regular. ABDOMEN: No distention. EXTREMITITES: Chronic changes noted. 1+ edema. Wrapped. Objective - Vital Signs Vital signs: Vital Signs Temp 97.8 F 01/23/25 04:00 Pulse 54 L 01/23/25 04:00 Resp 18 01/23/25 04:00 BP 150/73 01/23/25 04:00 Pulse Ox 93 L 01/23/25 04:00 FiO2 30 01/18/25 04:00 Intake & Output 01/22/25 01/23/25 01/23/25 18:59 06:59 18:59 Intake Total 400 120 360 Output Total 2900 300 Balance -2500 -180 360 Weight 116.5 kg Intake: Oral 120 360 Hemodialysis 400 Output: Urine 300 300 Hemodialysis 1500 Hemodialysis Net Amount 1100 Other: Voiding Method Indwelling Catheter Indwelling Catheter - Labs CBC & Chem 7: 01/23/25 06:20 01/23/25 06:20 Labs: Abnormal Lab Results - Last 24 Hours (Table) 01/22/25 01/22/25 01/23/25 Range/Units 16:53 20:27 06:20 RBC 3.18 L (4.40-5.60) 10*6/uL Hgb 9.3 L (13.0-17.0) g/dL Hct 28.0 L (39.6-50.0) % MPV 9.4 L (9.5-12.2) fL Immature Gran # 1.05 H (0.00-0.04) 10*3/uL Sodium (137-145) mmol/L Chloride (98-107) mmol/L Carbon Dioxide (22-30) mmol/L BUN (9-20) mg/dL Creatinine (0.66-1.25) mg/dL POC Glucose (mg/dL) 117 H 134 H (70-110) mg/dL Calcium (8.4-10.2) mg/dL Magnesium (1.6-2.3) mg/dL 01/23/25 Range/Units 06:20 RBC (4.40-5.60) 10*6/uL Hgb (13.0-17.0) g/dL Hct (39.6-50.0) % MPV (9.5-12.2) fL Immature Gran # (0.00-0.04) 10*3/uL Sodium 124 L (137-145) mmol/L Chloride 90 L (98-107) mmol/L Carbon Dioxide 21 L (22-30) mmol/L BUN 79 H (9-20) mg/dL Creatinine 3.47 H (0.66-1.25) mg/dL POC Glucose (mg/dL) (70-110) mg/dL Calcium 8.3 L (8.4-10.2) mg/dL Magnesium 2.4 H (1.6-2.3) mg/dL Assessment and Plan Plan: Assessment: 1. Acute kidney injury secondary to ATN secondary to severe sepsis. Creatinine 5.1 dated January 16, 2025. Started on dialysis January 16, 2025. Has femoral catheter. Kidney ultrasound from December 2024 showed no evidence of hydronephrosis. 2. Chronic kidney disease stage IIIa with baseline creatinine 1.2-1.4. 3. Chronic diastolic CHF and moderate aortic stenosis. 4. Hyperkalemia secondary to acute kidney injury and acidosis. Better. 5. Metabolic acidosis secondary to acute kidney injury and IV fluids. Also on metformin. Improved with bicarb drip and dialysis. 6. Hyponatremia secondary to acute kidney injury, hypervolemic. 7. Severe sepsis secondary to UTI. Also had recent cellulitis. On antibiotics. 8. Anemia due to acute illness and chronic kidney disease. On Aranesp. 9. Volume overload. 10. Hyperphosphatemia secondary to acute kidney injury. Plan: Plan for hemodialysis tomorrow. Add IV Lasix. Maintain Astorga catheter. Metformin discontinued. Avoid nephrotoxins. Monitor for renal recovery. Encouraged oral intake. Add fluid restriction.
[2025-01-23] MEDS: FUROSEMIDE 10 MG/ML 10 ML VIAL IV SCH (09:38)
--- NOTE | 2025-01-23 09:58 | P.PN ---
Subjective Progress Note Date: 01/23/25 Principal diagnosis: Acute kidney injury need for hemodialysis Patient is seen and examined today as a follow-up. He has right temporary HD catheter in place. He has been getting hemodialysis without any complications. Urine output is improving. Mentation has improved. Objective - Vital Signs Vital signs: Vital Signs Temp 97.8 F 01/23/25 04:00 Pulse 54 L 01/23/25 04:00 Resp 18 01/23/25 04:00 BP 150/73 01/23/25 04:00 Pulse Ox 93 L 01/23/25 04:00 FiO2 30 01/18/25 04:00 Intake & Output 01/22/25 01/23/25 01/23/25 18:59 06:59 18:59 Intake Total 400 120 Output Total 2900 300 Balance -2500 -180 Weight 116.5 kg Intake: Oral 120 Hemodialysis 400 Output: Urine 300 300 Hemodialysis 1500 Hemodialysis Net Amount 1100 Other: Voiding Method Indwelling Catheter Indwelling Catheter - Exam General appearance: The patient is awake and alert to self. Obese HET: Head is normocephalic and atraumatic. Neck: Supple. Abdomen: Soft, nontender, nondistended. Extremities: Normal skin color and turgor. Right groin with temporary HD catheter in place without any bleeding. Neurological: Awake and alert to name. - Labs CBC & Chem 7: 01/23/25 06:20 01/23/25 06:20 Labs: Abnormal Lab Results - Last 24 Hours (Table) 01/22/25 01/22/25 01/22/25 Range/Units 07:20 16:53 20:27 RBC (4.40-5.60) 10*6/uL Hgb (13.0-17.0) g/dL Hct (39.6-50.0) % MPV (9.5-12.2) fL Immature Gran # (0.00-0.04) 10*3/uL Sodium 126 L (137-145) mmol/L Chloride 91 L (98-107) mmol/L Carbon Dioxide 21 L (22-30) mmol/L BUN 80 H (9-20) mg/dL Creatinine 4.30 H (0.66-1.25) mg/dL POC Glucose (mg/dL) 117 H 134 H (70-110) mg/dL Calcium 8.2 L (8.4-10.2) mg/dL Magnesium (1.6-2.3) mg/dL Albumin 2.8 L (3.5-5.0) g/dL 01/23/25 01/23/25 Range/Units 06:20 06:20 RBC 3.18 L (4.40-5.60) 10*6/uL Hgb 9.3 L (13.0-17.0) g/dL Hct 28.0 L (39.6-50.0) % MPV 9.4 L (9.5-12.2) fL Immature Gran # 1.05 H (0.00-0.04) 10*3/uL Sodium 124 L (137-145) mmol/L Chloride 90 L (98-107) mmol/L Carbon Dioxide 21 L (22-30) mmol/L BUN 79 H (9-20) mg/dL Creatinine 3.47 H (0.66-1.25) mg/dL POC Glucose (mg/dL) (70-110) mg/dL Calcium 8.3 L (8.4-10.2) mg/dL Magnesium 2.4 H (1.6-2.3) mg/dL Albumin (3.5-5.0) g/dL Assessment and Plan Assessment: 1. Acute kidney injury requiring renal replacement therapy status post temporary HD catheter placement 2. Chronic kidney disease 3. Acute metabolic encephalopathy 4. Sepsis secondary to UTI and he has cellulitis of lower extremities 5. Hypoxic on BiPAP Plan: 1. Hemodialysis per recommendations from nephrology 2. We will be on standby if further needed for permacath or any complications with temp cath. Please call us for removal if needed. Thank you for this consultation. The impression and plan of care has been dictated as directed. Dr. Merino I performed a history and examination of this patient, discussed the same with the dictator. I agree with the dictator's note ,documented as a scribe. Any additional findings or plans will be noted.
--- NOTE | 2025-01-23 10:28 | P.PN ---
Subjective HISTORY OF PRESENT ILLNESS: This is a 74-year-old male with a past medical history significant for paroxysmal atrial fibrillation, seizure disorder, anemia, and diabetes. Patient does not follow with a quiller tender. We have been asked to see the patient in consultation for bradycardia. Patient examined at the bedside. Patient was brought to the hospital from his senior care secondary to altered mental status. Patient was found to have sepsis secondary to UTI. Additionally patient was found to be in acute renal failure and was initiated on hemodialysis. Dialysis nurse present at the time of examination and states they were having issues with patient tolerating dialysis this weekend with his heart rates dropping into the 30s. However he is currently undergoing hemodialysis with a heart rate in the 50s. Patient denies any chest pain or pressure. Denies any shortness of breath. DIAGNOSTICS: - EKG reveals sinus mechanism with no signs of acute ischemia. - Chest xray 01/17/2025 revealing similar mild interstitial prominence, possible mild pulmonary vascular congestion - Laboratory data: WBC 7.62. Hemoglobin 9.0. Platelet count 272. Sodium 126. Potassium 4.8. BUN 80. Creatinine 4.30. - Current home cardiac medications include aspirin 81 mg daily, Lipitor 20 mg at night. - Most recent echocardiogram obtained in October 2024 reveals EF 55 to 60%, trace MR, moderate aortic stenosis with peak gradient 31 mmHg and mean gradient 21 mmHg. - Cardiac catheterization history: Unknown 01/23/2025 Patient examined this morning at bedside. Patient currently denies chest pain or pressure. He denies shortness of breath. Patient tolerated hemodialysis yesterday with removal of 1 L. Patient's heart rate is in the 50s today. PHYSICAL EXAM: VITAL SIGNS: Reviewed. GENERAL: Well-developed in no acute distress. HEENT: Head is normocephalic. Pupils are equal, round. Sclerae anicteric. Mucous membranes of the mouth are moist. Neck supple. No JVD or thyromegaly LUNGS: Respirations even and unlabored. Lungs with bilateral rhonchi. HEART: Regular rate and rhythm. S1 and S2 heard. Systolic murmur noted. ABDOMEN: Soft. Nondistended. Nontender. EXTREMITIES: Normal range of motion. No clubbing or cyanosis. Peripheral pul ses intact. No lower extremity edema NEUROLOGIC: Awake and alert. ASSESSMENT: UTI with sepsis Acute renal failure requiring initiation of hemodialysis Sinus bradycardia with PACs with heart rates in the 30s Paroxysmal atrial fibrillation Moderate aortic stenosis Hyponatremia History of seizure disorder History of anemia History of diabetes Obesity: BMI 33.7 PLAN: No need to obtain echocardiogram as this was performed in October 2024 Patient has a history of paroxysmal atrial fibrillation. However he is not anticoagulated on an outpatient basis. Reason unknown. Continue hyoscyamine 0.375 mg twice daily Continue telemetry monitoring Continue hemodialysis per nephrology We will sign off. Please reconsult if needed. Nurse practitioner note has been reviewed by physician. Signing provider agrees with the documented findings, assessment, and plan of care documented by [employer] ASSISTANT as a scribe. Objective - Vital Signs Vital signs: Vital Signs Temp 98.3 F 01/23/25 09:28 Pulse 66 01/23/25 09:28 Resp 14 01/23/25 09:28 BP 155/73 01/23/25 09:28 Pulse Ox 94 L 01/23/25 09:28 FiO2 30 01/18/25 04:00 Intake & Output 01/22/25 01/23/25 01/23/25 18:59 06:59 18:59 Intake Total 400 120 360 Output Total 2900 300 Balance -2500 -180 360 Weight 116.5 kg Intake: Oral 120 360 Hemodialysis 400 Output: Urine 300 300 Hemodialysis 1500 Hemodialysis Net Amount 1100 Other: Voiding Method Indwelling Catheter Indwelling Catheter - Labs CBC & Chem 7: 01/23/25 06:20 01/23/25 06:20 Labs: Abnormal Lab Results - Last 24 Hours (Table) 01/22/25 01/22/25 01/23/25 Range/Units 16:53 20:27 06:20 RBC 3.18 L (4.40-5.60) 10*6/uL Hgb 9.3 L (13.0-17.0) g/dL Hct 28.0 L (39.6-50.0) % MPV 9.4 L (9.5-12.2) fL Immature Gran # 1.05 H (0.00-0.04) 10*3/uL Sodium (137-145) mmol/L Chloride (98-107) mmol/L Carbon Dioxide (22-30) mmol/L BUN (9-20) mg/dL Creatinine (0.66-1.25) mg/dL POC Glucose (mg/dL) 117 H 134 H (70-110) mg/dL Calcium (8.4-10.2) mg/dL Magnesium (1.6-2.3) mg/dL 01/23/25 Range/Units 06:20 RBC (4.40-5.60) 10*6/uL Hgb (13.0-17.0) g/dL Hct (39.6-50.0) % MPV (9.5-12.2) fL Immature Gran # (0.00-0.04) 10*3/uL Sodium 124 L (137-145) mmol/L Chloride 90 L (98-107) mmol/L Carbon Dioxide 21 L (22-30) mmol/L BUN 79 H (9-20) mg/dL Creatinine 3.47 H (0.66-1.25) mg/dL POC Glucose (mg/dL) (70-110) mg/dL Calcium 8.3 L (8.4-10.2) mg/dL Magnesium 2.4 H (1.6-2.3) mg/dL
--- NOTE | 2025-01-23 11:16 | P.PN ---
Subjective Progress Note Date: 01/23/25 Hospital course: Patient is a 74-year-old male with a history of type 2 diabetes melitis, hypothyroidism, hypertension, atrial fibrillation was brought to the ER via EMS from [facility] for altered mental status. History is obtained by reviewing ER and EMS notes. Patient was recently hospitalized for sepsis secondary to UTI and cellulitis of the left lower extremity and SIMRAN and was discharged on da ptomycin and ceftriaxone for 2 weeks, sent to [facility] for rehabilitation. On arrival to the ED, patient was found to be hypoxic and was put on BiPAP. Initial laboratory evaluation WBC 13.45, hemoglobin 9.5, platelet count 676, sodium 138, potassium 5.8, chloride 92, bicarb 17, BUN 114, creatinine 4.55, glucose 227, magnesium 3.0, calcium 8.5, lactic acid 0.9, ALP 144, AST 20 ALT 20, creatinine kinase 130, NT proBNP 20 840, albumin 3.0. Urinalysis consistent with pyuria, hematuria and proteinuria. Chest x-ray shows no acute cardiopulmonary process. 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 EKG consistent with normal sinus rhythm with ventricular rate of 84 bpm, ID interval 144 ms, QRS duration 102 ms, QTc [address] T wave elevation noted. Normal R wave progression noted. Infectious disease was consulted. Nephrology was consulted. Patient is started on IV daptomycin and ceftriaxone. At the time of interview, patient is currently on BiPAP with a setting of 12/6 with a flow rate of 10 and oxygen at 30%. 01/16/2025: Patient seen and examined at the bedside. Patient continues to be on BiPAP. Patient is awake but not alert and oriented to time place and person. Lab work today shows WBC 7.82, hemoglobin 8.1, hematocrit 26.3, MCV 91.3, platelet count 581, sodium 129, potassium 5.2, BUN 20, creatinine 5.10, hemoglobin A1c 8.5, calcium 7.9, magnesium 3.0. Urine output was 500 mL in 24 hours. Patient to un dergo hemodialysis today and tomorrow. 01/17/2025 Patient seen and examined at side. Patient currently undergoing hemodialysis with a goal of 0.5 L. Hemodialysis yesterday with output of 0.5 L. Patient states but more alert and awake today. Follows verbal command. Continues to be on BiPAP. Urine cultures negative. Blood culture preliminary report shows no bacterial growth. WBC 9.06, hemoglobin 8.5, sodium 132, potassium 12.5, BUN 101, creatinine 4.62, calcium 8.1, magnesium 2.9. 01/18/2025 Patient seen and examined at the bedside. Patient lying comfortably on the bed. Currently getting hemodialysis. 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 Slightly more awake alert compared to yesterday. He is following verbal commands. White cell count was 9.8, hemoglobin 9.0, hematocrit 28.5, platelet count 509, sodium 132, potassium 5.1, BUN 38, creatinine 4.68, calcium 8.1, magnesium 2.7. 01/19/2025. Patient seen examined. Patient was undergoing dialysis but could not complete the cycle today because of episodes of bradycardia. Patient is currently on room air. Patient is alert but mental status waxes and wanes. Labs reviewed showed WBC 9.03, hemoglobin 8.5, sodium 135, potassium 4.5, BUN 45, creatinine 4.30 01/20/2025 no new labs from today. Patient seen and examined at the bedside. No acute events overnight. Patient to undergo hemodialysis session today. Patient could not complete the hemodialysis yesterday because of the bradycardic episodes. She is currently on room air and is hemodynamically stable. No new labs from today. 01/21. Patient seen and examined. Patient did tolerate dialysis yesterday but his heart rate is ranging in the low 40s. Discussed with nephrology, they suggested that if patient heart rate continues to be in the 40s patient may not be able to undergo outpatient dialysis 01/22/2025 Patient seen and examined at the bedside. No acute events overnight. Patient currently undergoing hemodialysis with a goal of 1 L. Patient tolerated dialysis yesterday and was bradycardic in his 40s. Lab work from today shows WBC 7.6, hemoglobin 9.0, sodium 126, BUN 80, creatinine 4.3. 01/23/2025 Patient seen and examined at bedside. No acute events overnight. No shortness of breath, chest pain, nausea, vomiting. Patient underwent hemodialysis yesterday with net output of 1.1 L. Patient tolerated hemodialysis well yesterday. Sodium 124, BUN 79, creatinine 3.47, calcium 8.3, magnesium 2.4. Patient to undergo hemodialysis tomorrow. Anticipating discharge within 24 to 48 hours to subacute rehab. Physical examination: General: non toxic, no distress, appears at stated age, obese Derm: Multiple chronic lesions on bilateral extremities, legs wrapped Head: atraumatic, normocephalic, symmetric Eyes: EOMI, no lid lag, anicteric sclera, pupils equal round reactive to light ENT: Nose and ears atraumatic, Cardiovascular: S1S2 reg, no murmur 3+ lower extremity pitting edema Lungs: CTA bilateral, diminished at the bases Abdominal: soft, nontender to palpation, no guarding Ext: muscle strength 5 out of 5 in all 4 extremities grossly, no gross muscle atrophy, no contractures, Neuro: CN II-XI grossly intact, no gross focal neuro deficits Psych: Alert, oriented, appropriate affect Assessment/Plan: This is a 74-year-old male with a history of type 2 diabetes melitis, hypothyroidism, hypertension, atrial fibrillation was brought to the ER via EMS from [facility] for altered mental status. Case was discussed with the Emergency Room provider and decision was made to admit the patient for acute toxic metabolic encephalopathy, SIMRAN, UTI Active: #Sepsis secondary to UTI #SIMRAN secondary to ATN secondary to sepsis #Hypervolemic hyponatremia #Hyperkalemia secondary to SIMRAN #Hypermagnesemia #Acute toxic metabolic encephalopathy secondary to above #Bilateral lower extremity cellulitis Continue with IV Rocephin and IV daptomycin Blood culture and urine culture negative ID following, appreciate recommendation Nephrology following, recommendations noted from 01/23 Hemodialysis tomorrow #Acute hypoxic respiratory failure, was on BiPAP, currently on room air #Volume overload #HFpEF, not in exacerbation Continue oxygen supplementation Use of BiPAP as needed Echocardiogram was done on 12/30/2024 showed preserved LV function of 55 to 60% with moderate . Pulmonology following #History of seizure disorder Neurology on board, EEG today Continue Depakote 125 mg p.o. twice daily #Anemia of the chronic disease, baseline between 10-11 Hemoglobin at 9 Continue monitor hemoglobin No active bleeding Transfuse with packed RBC if hemoglobin less than 7 #Type 2 diabetes Continue Lantus 20 units subcu daily Continue patient on sliding scale insulin Monitor for hypoglycemia #Generalized weakness PT and OT consulted CODE STATUS: DNI Attestation: I have seen and examined this patient with my resident, assessment and plan discussed with the resident, agree with assessment and plan as written above. Dr. Coronado Objective - Vital Signs Vital signs: Vital Signs Temp 98.3 F 01/23/25 09:28 Pulse 66 01/23/25 09:28 Resp 14 01/23/25 09:28 BP 155/73 01/23/25 09:28 Pulse Ox 94 L 01/23/25 09:28 FiO2 30 01/18/25 04:00 Intake & Output 01/22/25 01/23/25 01/23/25 18:59 06:59 18:59 Intake Total 400 120 360 Output Total 2900 300 Balance -2500 -180 360 Weight 116.5 kg Intake: Oral 120 360 Hemodialysis 400 Output: Urine 300 300 Hemodialysis 1500 Hemodialysis Net Amount 1100 Other: Voiding Method Indwelling Catheter Indwelling Catheter - Labs CBC & Chem 7: 01/23/25 06:20 01/23/25 06:20 Labs: Abnormal Lab Results - Last 24 Hours (Table) 01/22/25 01/22/25 01/23/25 Range/Units 16:53 20:27 06:20 RBC 3.18 L (4.40-5.60) 10*6/uL Hgb 9.3 L (13.0-17.0) g/dL Hct 28.0 L (39.6-50.0) % MPV 9.4 L (9.5-12.2) fL Immature Gran # 1.05 H (0.00-0.04) 10*3/uL Sodium (137-145) mmol/L Chloride (98-107) mmol/L Carbon Dioxide (22-30) mmol/L BUN (9-20) mg/dL Creatinine (0.66-1.25) mg/dL POC Glucose (mg/dL) 117 H 134 H (70-110) mg/dL Calcium (8.4-10.2) mg/dL Magnesium (1.6-2.3) mg/dL 01/23/25 Range/Units 06:20 RBC (4.40-5.60) 10*6/uL Hgb (13.0-17.0) g/dL Hct (39.6-50.0) % MPV (9.5-12.2) fL Immature Gran # (0.00-0.04) 10*3/uL Sodium 124 L (137-145) mmol/L Chloride 90 L (98-107) mmol/L Carbon Dioxide 21 L (22-30) mmol/L BUN 79 H (9-20) mg/dL Creatinine 3.47 H (0.66-1.25) mg/dL POC Glucose (mg/dL) (70-110) mg/dL Calcium 8.3 L (8.4-10.2) mg/dL Magnesium 2.4 H (1.6-2.3) mg/dL
[2025-01-23 11:44] LABS: Glucose,Whole Blood 140 mg/dL (70-110)
[2025-01-23] MEDS: CALCIUM ACETATE 667 MG TAB PO SCH (12:01)
--- NOTE | 2025-01-23 14:20 | P.PN ---
Subjective Progress Note Date: 01/23/25 Principal diagnosis: Reason for follow-up is left lower extremity cellulitis UTI Patient is a 74-year-old male with a past medical history significant for hypertension hyperlipidemia heart failure atrial fibrillation recent admitted to this facility with extensive left lower extremity cellulitis patient local culture positive for MRSA Proteus along with Enterococcus faecalis for which the patient got midline and was advised a 10-day course of IV Rocephin and daptomycin not been sent to the hospital with hypoxemia and mental status changes did have a positive UA. On today's evaluation that is 01/23/2025, patient has been afebrile, patient is breathing comfortably and is currently on room air, patient is more awake and alert today denies having any chest pain and cough, patient denies nausea vomiting or diarrhea and no abdominal pain. Patient white count is 8.51, creatinine 3.47 blood and urine has been negative Objective - Vital Signs Vital signs: Vital Signs Temp 98.5 F 01/23/25 11:58 Pulse 54 L 01/23/25 11:58 Resp 14 01/23/25 11:58 BP 146/69 01/23/25 11:58 Pulse Ox 95 01/23/25 11:58 FiO2 30 01/18/25 04:00 Intake & Output 01/22/25 01/23/25 01/23/25 18:59 06:59 18:59 Intake Total 400 120 478 Output Total 2900 300 350 Balance -2500 -180 128 Weight 116.5 kg 116.5 kg Intake: Oral 120 478 Hemodialysis 400 Output: Urine 300 300 350 Hemodialysis 1500 Hemodialysis Net Amount 1100 Other: Voiding Method Indwelling Catheter Indwelling Catheter Indwelling Catheter - Exam GENERAL DESCRIPTION: An elderly male lying in bed in no distress RESPIRATORY SYSTEM: Unlabored breathing , decreased breath sounds at bases HEART: S1 S2 regular rate and rhythm , ABDOMEN: Soft , no tenderness EXTREMITIES: Left lower extremity swelling redness has decreased in intensity a nd did have some dry scaly skin - Labs CBC & Chem 7: 01/23/25 06:20 01/23/25 06:20 Labs: Abnormal Lab Results - Last 24 Hours (Table) 01/22/25 01/22/25 01/23/25 Range/Units 16:53 20: 06:20 RBC 3.18 L (4.40-5.60) 10*6/uL Hgb 9.3 L (13.0-17.0) g/dL Hct 28.0 L (39.6-50.0) % MPV 9.4 L (9.5-12.2) fL Immature Gran # 1.05 H (0.00-0.04) 10*3/uL Sodium (137-145) mmol/L Chloride (98-107) mmol/L Carbon Dioxide (22-30) mmol/L BUN (9-20) mg/dL Creatinine (0.66-1.25) mg/dL POC Glucose (mg/dL) 117 H 134 H (70-110) mg/dL Calcium (8.4-10.2) mg/dL Magnesium (1.6-2.3) mg/dL 01/23/25 01/23/25 Range/Units 06:20 11:43 RBC (4.40-5.60) 10*6/uL Hgb (13.0-17.0) g/dL Hct (39.6-50.0) % MPV (9.5-12.2) fL Immature Gran # (0.00-0.04) 10*3/uL Sodium 124 L (137-145) mmol/L Chloride 90 L (98-107) mmol/L Carbon Dioxide 21 L (22-30) mmol/L BUN 79 H (9-20) mg/dL Creatinine 3.47 H (0.66-1.25) mg/dL POC Glucose (mg/dL) 140 H (70-110) mg/dL Calcium 8.3 L (8.4-10.2) mg/dL Magnesium 2.4 H (1.6-2.3) mg/dL Assessment and Plan (1) Encephalopathy Current Visit: Yes Status: Acute Code(s): G93.40 - ENCEPHALOPATHY, UNSPECIFIED SNOMED Code(s): 80452783 (2) UTI (urinary tract infection) Current Visit: Yes Status: Acute Code(s): N39.0 - URINARY TRACT INFECTION, SITE NOT SPECIFIED SNOMED Code(s): 20027236 (3) Cellulitis of left leg Current Visit: No Status: Acute Code(s): L03.116 - CELLULITIS OF LEFT LOWER LIMB SNOMED Code(s): 30858520184979649 Plan: 1patient presented to hospital with mental status changes lethargy which is likely multifactorial in this patient noticed to have significant worsening of his kidney function and this patient was getting treatment for his left lower extremity wound and cellulitis which has shown some improvement but not complete resolution of the left lower extremity cellulitis, with recent culture positive for Proteus and MRSA 2-patient also has a positive UA however culture have been negative 3-patient is afebrile white count has normalized, 4patient left lower extremity swelling redness has decreased intensity 5patient advised to continue with the daptomycin Rocephin for about a week on discharge Dictation was produced using [employer] dictation software. please excuse any grammatical, word or spelling errors. Time with Patient: Less than 30
[2025-01-23 16:41] LABS: Glucose,Whole Blood 116 mg/dL (70-110)
[2025-01-23 20:12] LABS: Glucose,Whole Blood 107 mg/dL (70-110)
[2025-01-24 05:58] LABS: Glucose,Whole Blood 111 mg/dL (70-110)
[2025-01-24 07:40] LABS: African American GFR (CKD) 19 (>60 ml/min/1.73 sqM); Anion Gap 12 mmol/L; Blood Urea Nitrogen 97 mg/dL (9-20); Calcium 8.4 mg/dL (8.4-10.2); Carbon Dioxide 24 mmol/L (22-30); Chloride 91 mmol/L (98-107); Glucose 99 mg/dL (74-99); Non-African American GFR(CKD) 17 (>60 ml/min/1.73 sqM); Phosphorus 6.8 mg/dL (2.5-4.5); Potassium 4.5 mmol/L (3.5-5.1); Sodium 127 mmol/L (137-145)
--- NOTE | 2025-01-24 10:05 | CDI ---
Documentation Clarification Form Date: 01/24/2025 09:06:37 AM From: Lizett Salinas Phone: [phone] Admit Date: 01/14/2025 12:51:00 PM Patient Name: Carlos Payan Visit Number: [id number] Discharge Date: ATTENTION: The Clinical Documentation Specialists (CDI) and [facility] Coding Staff appreciate your assistance in clarifying documentation. Please respond to the clarification below the line at the bottom and electronically sign. The CDI & [facility] Coding staff will review the response and follow-up if needed. Please note: Queries are made part of the Legal Health Record. If you have any questions, please contact the author of this message via ITS. DoctorTory Bennett A bilateral buttock stage II pressure ulcer and a Left later calf pressure ulcer stage III, also unstageable left great toe injury is documented by Nursing Wound Care starting on 01/14/25. Based on this information and the findings below, is there an additional diagnosis that is clinically appropriate for this patient? History/Risk Factors: Atrial Fibrillation, Heart Failure, Hyperlipidemia, Hypertension, Renal disease Clinical Indicators: 74-year-old male who [facility] a [facility] present with altered mental status. 01/14 ED exam: Skin: Erythematous bilateral lower extremities Location: Pressure injury bilateral buttock stage II Wound description: No drainage skin flap noted Location: Left lateral calf Pressure injury stage III Wound description: Epithelialization 51-75% excoriation; Drainage serosanguineous Location: Left Toe -Great toe Unstageable Wound description: drainage none 76-100% Eschar callus Treatment: Turn and reposition Q 2 hrs, check Hourly Absorbent underpad Dressing change with Foam w/Border Is there an additional diagnosis that is clinically appropriate for this patient? [ ] Pressure injury bilateral buttock stage II, Left lateral calf Pressure injury stage III, Unstageable wound left toe-great toe [ x ] Other condition, please specify, bilateral buttock stage II pressure ulcer, left lateral leg stage II pressure ulcer, there is no unstageable wound to the left big toe [ ] Unable to determine Clinical Definitions: Stage 1 Pressure Ulcer: intact skin, non-blanching redness of local area Stage 2 Pressure Ulcer: Partial thickness, loss of dermis, pink wound bed Stage 3 Pressure Ulcer: Full thickness tissue loss Stage 4 Pressure Ulcer: Full thickness tissue loss with exposed bone, tendon, or muscle. Unstageable pressure ulcer: Full thickness tissue loss in which the base of the ulcer is covered by slough (yellow, wilson, flores, green or brown) and/or eschar (wilson, brown or black) in the wound bed. (Template Last Revised: October 2020) MTDD
[2025-01-24 11:22] LABS: Glucose,Whole Blood 149 mg/dL (70-110)
--- NOTE | 2025-01-24 11:35 | P.PN ---
Subjective Progress Note Date: 01/24/25 Hospital course: Patient is a 74-year-old male with a history of type 2 diabetes melitis, hypothyroidism, hypertension, atrial fibrillation was brought to the ER via EMS [facility] for altered mental status. History is obtained by reviewing ER and EMS notes. Patient was recently hospitalized for sepsis secondary to UTI and cellulitis of the left lower extremity and SIMRAN and was discharged on dap tomycin and ceftriaxone for 2 weeks, sent to [facility] for [facility]. On arrival to the ED, patient was found to be hypoxic and was put on BiPAP. Initial laboratory evaluation WBC 13.45, hemoglobin 9.5, platelet count 676, sodium 138, potassium 5.8, chloride 92, bicarb 17, BUN 114, creatinine 4.55, glucose 227, magnesium 3.0, calcium 8.5, lactic acid 0.9, ALP 144, AST 20 ALT 20, creatinine kinase 130, NT proBNP 20 840, albumin 3.0. Urinalysis consistent with pyuria, hematuria and proteinuria. Chest x-ray shows no acute cardiopulmonary process. 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 EKG consistent with normal sinus rhythm with ventricular rate of 84 bpm, CO interval 144 ms, QRS duration 102 ms, QTc [address] T wave elevation noted. Normal R wave progression noted. Infectious disease was consulted. Nephrology was consulted. Patient is started on IV daptomycin and ceftriaxone. At the time of interview, patient is currently on BiPAP with a setting of 12/6 with a flow rate of 10 and oxygen at 30%. 01/16/2025: Patient seen and examined at the bedside. Patient continues to be on BiPAP. Patient is awake but not alert and oriented to time place and person. Lab work today shows WBC 7.82, hemoglobin 8.1, hematocrit 26.3, MCV 91.3, platelet count 581, sodium 129, potassium 5.2, BUN 20, creatinine 5.10, hemoglobin A1c 8.5, calcium 7.9, magnesium 3.0. Urine output was 500 mL in 24 hours. Patient to undergo hemodialysis today and tomorrow. 01/17/2025 Patient seen and examined at side. Patient currently undergoing hemodialysis with a goal of 0.5 L. Hemodialysis yesterday with output of 0.5 L. Patient states but more alert and awake today. Follows verbal command. Continues to be on BiPAP. Urine cultures negative. Blood culture preliminary report shows no bacterial growth. WBC 9.06, hemoglobin 8.5, sodium 132, potassium 12.5, BUN 101, creatinine 4.62, calcium 8.1, magnesium 2.9. 01/18/2025 Patient seen and examined at the bedside. Patient lying comfortably on the bed. Currently getting hemodialysis. 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 Slightly more awake alert compared to yesterday. He is following verbal commands. White cell count was 9.8, hemoglobin 9.0, hematocrit 28.5, platelet count 509, sodium 132, potassium 5.1, BUN 38, creatinine 4.68, calcium 8.1, magnesium 2.7. 01/19/2025. Patient seen examined. Patient was undergoing dialysis but could not complete the cycle today because of episodes of bradycardia. Patient is currently on room air. Patient is alert but mental status waxes and wanes. Labs reviewed showed WBC 9.03, hemoglobin 8.5, sodium 135, potassium 4.5, BUN 45, creatinine 4.30 01/20/2025 no new labs from today. Patient seen and examined at the bedside. No acute events overnight. Patient to undergo hemodialysis session today. Patient could not complete the hemodialysis yesterday because of the bradycardic episodes. She is currently on room air and is hemodynamically stable. No new labs from today. 01/21. Patient seen and examined. Patient did tolerate dialysis yesterday but his heart rate is ranging in the low 40s. Discussed with nephrology, they suggested that if patient heart rate continues to be in the 40s patient may not be able to undergo outpatient dialysis 01/22/2025 Patient seen and examined at the bedside. No acute events overnight. Patient currently undergoing hemodialysis with a goal of 1 L. Patient tolerated dialysis yesterday and was bradycardic in his 40s. Lab work from today shows WBC 7.6, hemoglobin 9.0, sodium 126, BUN 80, creatinine 4.3. 01/23/2025 Patient seen and examined at bedside. No acute events overnight. No shortness of breath, chest pain, nausea, vomiting. Patient underwent hemodialysis yesterday with net output of 1.1 L. Patient tolerated hemodialysis well yesterday. Sodium 124, BUN 79, creatinine 3.47, calcium 8.3, magnesium 2.4. Patient to undergo hemodialysis tomorrow. Anticipating discharge within 24 to 48 hours to subacute rehab. 01/24/2025 Patient seen and examined at bedside. No acute events overnight. Patient denies shortness of breath, chest pain, abdominal pain, dysuria. His renal function started to improve. Creatinine today 3.4. Urine output is 1.2 L in 24 hours. Patient is currently on IV Lasix 60 mg twice daily. Possible hemodialysis today. Access is in the right groin area. Rest of the lab work shows sodium 127, potassium 4.5, phosphorus 6.8. Patient continues to be on IV Rocephin and daptomycin for lower extremity wounds. Physical examination: General: non toxic, no distress, appears at stated age, obese Derm: Multiple chronic lesions on bilateral extremities, legs wrapped Head: atraumatic, normocephalic, symmetric Eyes: EOMI, no lid lag, anicteric sclera, pupils equal round reactive to light ENT: Nose and ears atraumatic, Cardiovascular: S1S2 reg, no murmur 3+ lower extremity pitting edema Lungs: CTA bilateral, diminished at the bases Abdominal: soft, nontender to palpation, no guarding Ext: muscle strength 5 out of 5 in all 4 extremities grossly, no gross muscle atrophy, no contractures, Neuro: CN II-XI grossly intact, no gross focal neuro deficits Psych: Alert, oriented, appropriate affect Assessment/Plan: This is a 74-year-old male with a history of type 2 diabetes melitis, hypothyr oidism, hypertension, atrial fibrillation was brought [facility] the ER via EMS from [facility] for [facility] mental status. Case was discussed with the Emergency Room provider and decision was made to admit the patient for acute toxic metabolic encephalopathy, SIMRAN, UTI Active: #Sepsis secondary to UTI #SIMRAN secondary to ATN secondary to sepsis #Hypervolemic hyponatremia, improving #Hyperkalemia secondary to SIMRAN, improved #Hypermagnesemia #Acute toxic metabolic encephalopathy secondary to above, at baseline mentation #Bilateral lower extremity cellulitis, on IV antibiotics Continue with IV Rocephin and IV daptomycin Blood culture and urine culture negative ID following, appreciate recommendation Nephrology following, recommendations noted from 01/24 Hemodialysis likely today #Acute hypoxic respiratory failure, was on BiPAP, currently on room air #Volume overload #HFpEF, not in exacerbation Continue oxygen supplementation Use of BiPAP as needed Echocardiogram was done on 12/30/2024 showed preserved LV function of 55 to 60% with moderate . Pulmonology following #History of seizure disorder Neurology on board, Continue Depakote 125 mg p.o. twice daily #Anemia of the chronic disease, baseline between 10-11 Hemoglobin at 9 Continue monitor hemoglobin No active bleeding Transfuse with packed RBC if hemoglobin less than 7 #Type 2 diabetes Continue Lantus 20 units subcu daily Continue patient on sliding scale insulin Monitor for hypoglycemia #Generalized weakness PT and OT consulted CODE STATUS: DNI Attestation: I have seen and examined this patient with my resident, assessment and plan discussed with the resident, agree with assessment and plan as written above. Dr. Coronado Objective - Vital Signs Vital signs: Vital Signs Temp 98 F 01/24/25 08:00 Pulse 58 L 01/24/25 08:00 Resp 16 01/24/25 08:00 BP 145/70 01/24/25 08:00 Pulse Ox 95 01/24/25 08:00 FiO2 30 01/18/25 04:00 Intake & Output 01/23/25 01/24/25 01/24/25 18:59 06:59 18:59 Intake Total 836 240 180 Output Total 350 600 Balance 486 -360 180 Weight 116.5 kg 116.5 kg Intake: Oral 836 240 180 Output: Urine 350 600 Stool 0 Other: Voiding Method Indwelling Catheter Indwelling Catheter Indwelling Catheter - Labs CBC & Chem 7: 01/23/25 06:20 01/24/25 06:36 Labs: Abnormal Lab Results - Last 24 Hours (Table) 01/23/25 01/23/25 01/24/25 Range/Units 11:43 16:39 05:56 Sodium (137-145) mmol/L Chloride (98-107) mmol/L BUN (9-20) mg/dL Creatinine (0.66-1.25) mg/dL POC Glucose (mg/dL) 140 H 116 H 111 H (70-110) mg/dL Phosphorus (2.5-4.5) mg/dL 01/24/25 01/24/25 Range/Units 06:36 11:21 Sodium 127 L (137-145) mmol/L Chloride 91 L (98-107) mmol/L BUN 97 H (9-20) mg/dL Creatinine 3.44 H (0.66-1.25) mg/dL POC Glucose (mg/dL) 149 H (70-110) mg/dL Phosphorus 6.8 H (2.5-4.5) mg/dL
--- NOTE | 2025-01-24 13:45 | XR ---
EXAMINATION TYPE: XR chest 1V DATE OF EXAM: 01/24/2025 1:36 PM COMPARISON: 01/17/2025 CLINICAL INDICATION: Male, 74 years old with history of possible aspiration, TECHNIQUE: XR chest 1V views of the chest are obtained. FINDINGS: Demonstrated are scattered senescent parenchymal change. Patchy left lower lobe infiltrate may reflect pneumonia or aspiration. The heart is stable. Hilar and mediastinal structures are within normal limits. Degenerative changes are seen of the dorsal spine. IMPRESSION: 1. Patchy left lower lobe infiltrate may reflect pneumonia or aspiration. [facility], , 01/24/2025 1:43 PM
--- NOTE | 2025-01-24 15:35 | P.PN ---
Subjective Patient is seen in follow-up for acute kidney injury on chronic kidney disease. Has Astorga catheter. Urine output documented as 950 cc in the last 24 hours. On IV Lasix. Oral intake fair. Vital signs are stable. General: No acute distress. HEENT: On room air. LUNGS: No audible rhonchi or wheezes. HEART: Rate and Rhythm are regular. ABDOMEN: No distention. EXTREMITITES: Chronic changes noted. 1+ edema. Wrapped. Objective - Vital Signs Vital signs: Vital Signs Temp 98 F 01/24/25 08:00 Pulse 56 L 01/24/25 12:00 Resp 16 01/24/25 12:00 BP 143/70 01/24/25 12:00 Pulse Ox 93 L 01/24/25 12:00 FiO2 30 01/18/25 04:00 Intake & Output 01/23/25 01/24/25 01/24/25 18:59 06:59 18:59 Intake Total 836 240 360 Output Total 350 600 800 Balance 486 -360 -440 Weight 116.5 kg 116.5 kg Intake: Oral 836 240 360 Output: Urine 350 600 800 Stool 0 Other: Voiding Method Indwelling Catheter Indwelling Catheter Indwelling Catheter - Labs CBC & Chem 7: 01/23/25 06:20 01/24/25 06:36 Labs: Abnormal Lab Results - Last 24 Hours (Table) 01/23/25 01/24/25 01/24/25 Range/Units 16:39 05:56 06:36 Sodium 127 L (137-145) mmol/L Chloride 91 L (98-107) mmol/L BUN 97 H (9-20) mg/dL Creatinine 3.44 H (0.66-1.25) mg/dL POC Glucose (mg/dL) 116 H 111 H (70-110) mg/dL Phosphorus 6.8 H (2.5-4.5) mg/dL 01/24/25 Range/Units 11:21 Sodium (137-145) mmol/L Chloride (98-107) mmol/L BUN (9-20) mg/dL Creatinine (0.66-1.25) mg/dL POC Glucose (mg/dL) 149 H (70-110) mg/dL Phosphorus (2.5-4.5) mg/dL Assessment and Plan Plan: Assessment: 1. Acute kidney injury secondary to ATN secondary to severe sepsis. Creatinine 5.1 dated January 16, 2025. Started on dialysis January 16, 2025. Has femoral catheter. Kidney ultrasound from December 2024 showed no evidence of hydronephrosis. Last dialysis January 22, 2025. Creatinine stable at 3.44. 2. Chronic kidney disease stage IIIa with baseline creatinine 1.2-1.4. 3. Chronic diastolic CHF and moderate aortic stenosis. 4. Hyperkalemia secondary to acute kidney injury and acidosis. Better. 5. Metabolic acidosis secondary to acute kidney injury and IV fluids. Also on metformin. Improved with bicarb drip and dialysis. 6. Hyponatremia secondary to acute kidney injury, hypervolemic. 7. Severe sepsis secondary to UTI. Also had recent cellulitis. On antibiotics. 8. Anemia due to acute illness and chronic kidney disease. On Aranesp. 9. Volume overload. 10. Hyperphosphatemia secondary to acute kidney injury. On PhosLo. Plan: Plan for UF only treatment today. Maintain IV Lasix. Maintain Astorga catheter. Metformin discontinued. Avoid nephrotoxins. Monitor for renal recovery. Encouraged oral intake. Maintain fluid restriction.
[2025-01-24 16:09] LABS: Glucose,Whole Blood 215 mg/dL (70-110)
[2025-01-24 19:58] LABS: Glucose,Whole Blood 108 mg/dL (70-110)
[2025-01-25 06:06] LABS: Glucose,Whole Blood 108 mg/dL (70-110)
[2025-01-25 07:17] LABS: African American GFR (CKD) 21 (>60 ml/min/1.73 sqM); Anion Gap 11 mmol/L; Blood Urea Nitrogen 98 mg/dL (9-20); Calcium 8.4 mg/dL (8.4-10.2); Carbon Dioxide 24 mmol/L (22-30); Chloride 92 mmol/L (98-107); Glucose 99 mg/dL (74-99); Magnesium 2.2 mg/dL (1.6-2.3); Non-African American GFR(CKD) 19 (>60 ml/min/1.73 sqM); Potassium 4.4 mmol/L (3.5-5.1); Sodium 127 mmol/L (137-145)
[2025-01-25 11:20] LABS: Glucose,Whole Blood 127 mg/dL (70-110)
--- NOTE | 2025-01-25 11:20 | P.PN ---
Subjective Patient is seen in follow-up for acute kidney injury on chronic kidney disease. Has Astorga catheter. Urine output documented as 1850 cc in the last 24 hours. On IV Lasix. Oral intake fair. Vital signs are stable. General: No acute distress. HEENT: On room air. LUNGS: No audible rhonchi or wheezes. HEART: Rate and Rhythm are regular. ABDOMEN: No distention. EXTREMITITES: Chronic changes noted. 1+ edema. Wrapped. Objective - Vital Signs Vital signs: Vital Signs Temp 98.4 F 01/25/25 08:00 Pulse 62 01/25/25 08:00 Resp 24 01/25/25 08:00 BP 166/77 01/25/25 08:00 Pulse Ox 94 L 01/25/25 08:00 FiO2 30 01/18/25 04:00 Intake & Output 01/24/25 01/25/25 01/25/25 18:59 06:59 18:59 Intake Total 660 240 120 Output Total 5100 1050 Balance -4440 -810 120 Weight 114.5 kg Intake: Oral 360 240 120 Hemodialysis 300 Output: Urine 800 1050 Stool 0 Hemodialysis 2300 Hemodialysis Net Amount 2000 Other: Voiding Method Indwelling Catheter Indwelling Catheter Indwelling Catheter # Bowel Movements 1 - Labs CBC & Chem 7: 01/23/25 06:20 01/25/25 06:31 Labs: Abnormal Lab Results - Last 24 Hours (Table) 01/24/25 01/24/25 01/25/25 Range/Units 11:21 16:07 06:31 Sodium 127 L (137-145) mmol/L Chloride 92 L (98-107) mmol/L BUN 98 H (9-20) mg/dL Creatinine 3.15 H (0.66-1.25) mg/dL POC Glucose (mg/dL) 149 H 215 H (70-110) mg/dL Assessment and Plan Plan: Assessment: 1. Acute kidney injury secondary to ATN secondary to severe sepsis. Creatinine 5.1 dated January 16, 2025. Started on dialysis January 16, 2025. Has femoral cat heter. Kidney ultrasound from December 2024 showed no evidence of hydronephrosis. Last dialysis January 22, 2025. Creatinine stable at 3.15. 2. Chronic kidney disease stage IIIa with baseline creatinine 1.2-1.4. 3. Chronic diastolic CHF and moderate aortic stenosis. 4. Hyperkalemia secondary to acute kidney injury and acidosis. Better. 5. Metabolic acidosis secondary to acute kidney injury and IV fluids. Also on metformin. Improved with bicarb drip and dialysis. 6. Hyponatremia secondary to acute kidney injury, hypervolemic. 7. Severe sepsis secondary to UTI. Also had recent cellulitis. On antibiotics. 8. Anemia due to acute illness and chronic kidney disease. On Aranesp. 9. Volume overload. 10. Hyperphosphatemia secondary to acute kidney injury. On PhosLo. Phosphorus level 6.8 dated January 24, 2025. Plan: Plan for another UF only treatment today and tomorrow. Maintain IV Lasix. Maintain Astorga catheter. Metformin discontinued. Avoid nephrotoxins. Monitor for renal recovery. Encouraged oral intake. Maintain fluid restriction.
--- NOTE | 2025-01-25 14:38 | P.PN ---
Subjective Progress Note Date: 01/24/25 Principal diagnosis: Reason for follow-up is left lower extremity cellulitis UTI Patient is a 74-year-old male with a past medical history significant for hypertension hyperlipidemia heart failure atrial fibrillation recent admitted to this facility with extensive left lower extremity cellulitis patient local culture positive for MRSA Proteus along with Enterococcus faecalis for which the patient got midline and was advised a 10-day course of IV Rocephin and daptomycin not been sent to the hospital with hypoxemia and mental status changes did have a positive UA. On today's evaluation that is 01/24/2025, Patient is afebrile this morning patient is more awake and alert denies having any chest pain shortness of breath or cough, the patient is currently on room air, patient denies any abdominal pain no diarrhea no nausea no vomiting. No CBC was done today his creatinine is 3.44 Objective - Vital Signs Vital signs: Vital Signs Temp 98 F 01/24/25 08:00 Pulse 56 L 01/24/25 12:00 Resp 16 01/24/25 12:00 BP 143/70 01/24/25 12:00 Pulse Ox 93 L 01/24/25 12:00 FiO2 30 01/18/25 04:00 Intake & Output 01/23/25 01/24/25 01/24/25 18:59 06:59 18:59 Intake Total 836 240 180 Output Total 350 600 800 Balance 813 -654 -486 Weight 116.5 kg 116.5 kg Intake: Oral 836 240 180 Output: Urine 350 600 800 Stool 0 Other: Voiding Method Indwelling Catheter Indwelling Catheter Indwelling Catheter - Exam GENERAL DESCRIPTION: An elderly male lying in bed in no distress RESPIRATORY SYSTEM: Unlabored breathing , decreased breath sounds at bases HEART: S1 S2 regular rate and rhythm , ABDOMEN: Soft , no tenderness EXTREMITIES: Left lower extremity swelling redness has decreased in intensity and did have some dry scaly skin - Labs CBC & Chem 7: 01/23/25 06:20 01/25/25 06:31 Labs: Abnormal Lab Results - Last 24 Hours (Table) 01/23/25 01/24/25 01/24/25 Range/Units 16:39 05:56 06:36 Sodium 127 L (137-145) mmol/L Chloride 91 L (98-107) mmol/L BUN 97 H (9-20) mg/dL Creatinine 3.44 H (0.66-1.25) mg/dL POC Glucose (mg/dL) 116 H 111 H (70-110) mg/dL Phosphorus 6.8 H (2.5-4.5) mg/dL 01/24/25 Range/Units 11:21 Sodium (137-145) mmol/L Chloride (98-107) mmol/L BUN (9-20) mg/dL Creatinine (0.66-1.25) mg/dL POC Glucose (mg/dL) 149 H (70-110) mg/dL Phosphorus (2.5-4.5) mg/dL Assessment and Plan (1) Encephalopathy Current Visit: Yes Status: Acute Code(s): G93.40 - ENCEPHALOPATHY, UNSPECIFIED SNOMED Code(s): 99137883 (2) UTI (urinary tract infection) Current Visit: Yes Status: Acute Code(s): N39.0 - URINARY TRACT INFECTION, SITE NOT SPECIFIED SNOMED Code(s): 95356363 (3) Cellulitis of left leg Current Visit: No Status: Acute Code(s): L03.116 - CELLULITIS OF LEFT LOWER LIMB SNOMED Code(s): 48786489171999577 Plan: 1patient presented to hospital with mental status changes lethargy which is likely multifactorial in this patient noticed to have significant worsening of his kidney function and this patient was getting treatment for his left lower extremity wound and cellulitis which has shown some improvement but not complete resolution of the left lower extremity cellulitis, with recent culture positive for Proteus and MRSA 2-patient also has a positive UA however culture have been negative 3-patient is afebrile white count has normalized, 4patient left lower extremity swelling redness has decreased intensity and the patient is currently being treated with daptomycin Rocephin to continue Dictation was produced using [employer] software. please excuse any grammatical, word or spelling errors. Time with Patient: Less than 30
--- NOTE | 2025-01-25 14:39 | P.PN ---
Subjective Progress Note Date: 01/25/25 Principal diagnosis: Reason for follow-up is left lower extremity cellulitis UTI Patient is a 74-year-old male with a past medical history significant for hypertension hyperlipidemia heart failure atrial fibrillation recent admitted to this facility with extensive left lower extremity cellulitis patient local culture positive for MRSA Proteus along with Enterococcus faecalis for which the patient got midline and was advised a 10-day course of IV Rocephin and daptomycin not been sent to the hospital with hypoxemia and mental status changes did have a positive UA. On today's evaluation that is 01/25/2025,the patient denies any fever or any chills, patient is breathing comfortably on room air, the patient denies chest pain shortness of breath and no significant cough, patient denies abdominal pain, no nausea vomiting or diarrhea. Denies pain to the left lower extremity. Patient creatinine is down to 3.15 no CBC was done today Objective - Vital Signs Vital signs: Vital Signs Temp 98.4 F 01/25/25 08:00 Pulse 55 L 01/25/25 12:00 Resp 20 01/25/25 12:00 BP 139/70 01/25/25 12:00 Pulse Ox 94 L 01/25/25 12:00 FiO2 30 01/18/25 04:00 Intake & Output 01/24/25 01/25/25 01/25/25 18:59 06:59 18:59 Intake Total 660 240 240 Output Total 5100 1050 0 Balance -4440 -810 240 Weight 114.5 kg Intake: Oral 360 240 240 Hemodialysis 300 Output: Urine 800 1050 Stool 0 0 Hemodialysis 2300 Hemodialysis Net Amount 2000 Other: Voiding Method Indwelling Catheter Indwelling Catheter Indwelling Catheter # Bowel Movements 1 - Exam GENERAL DESCRIPTION: An elderly male lying in bed in no distress RESPIRATORY SYSTEM: Unlabored breathing , decreased breath sounds at bases HEART: S1 S2 regular rate and rhythm , ABDOMEN: Soft , no tenderness EXTREMITIES: Left lower extremity swelling redness has decreased in intensity and did have some dry scaly skin - Labs CBC & Chem 7: 01/23/25 06:20 01/25/25 06:31 Labs: Abnormal Lab Results - Last 24 Hours (Table) 01/24/25 01/25/25 01/25/25 Range/Units 16:07 06:31 11:17 Sodium 127 L (137-145) mmol/L Chloride 92 L (98-107) mmol/L BUN 98 H (9-20) mg/dL Creatinine 3.15 H (0.66-1.25) mg/dL POC Glucose (mg/dL) 215 H 127 H (70-110) mg/dL Assessment and Plan (1) Encephalopathy Current Visit: Yes Status: Acute Code(s): G93.40 - ENCEPHALOPATHY, UNSPECIFIED SNOMED Code(s): 14066001 (2) UTI (urinary tract infection) Current Visit: Yes Status: Acute Code(s): N39.0 - URINARY TRACT INFECTION, SITE NOT SPECIFIED SNOMED Code(s): 83381666 (3) Cellulitis of left leg Current Visit: No Status: Acute Code(s): L03.116 - CELLULITIS OF LEFT LOWER LIMB SNOMED Code(s): 87821429089772097 Plan: 1patient presented to hospital with mental status changes lethargy which is likely multifactorial in this patient noticed to have significant worsening of his kidney function and this patient was getting treatment for his left lower extremity wound and cellulitis which has shown some improvement but not complete resolution of the left lower extremity cellulitis, with recent culture positive for Proteus and MRSA 2-patient also has a positive UA however culture have been negative 3-patient is afebrile white count has normalized, and also left lower extremity swelling and redness has decreased in intensity continue with a short course of daptomycin and Rocephin while inpatient Dictation was produced using [employer] dictation software. please excuse any grammatical, word or spelling errors. Time with Patient: Less than 30
[2025-01-25 16:00] LABS: Basophils # (A) 0.03 10*3/uL (0.00-0.10); Basophils % (A) 0.4 %; Eosinophils # (A) 1.06 10*3/uL (0.04-0.35); HCT 27.5 % (39.6-50.0); Lymphocytes # (A) 1.77 10*3/uL (0.90-5.00); MCH 28.6 pg (27.0-32.0); MCHC 32.7 g/dL (32.0-37.0); MCV 87.3 fL (80.0-97.0); Monocytes # (A) 0.87 10*3/uL (0.20-1.00); Monocytes % (A) 12.3 %; Neutrophils # (A) 3.29 10*3/uL (1.80-7.70); Neutrophils % (A) 46.6 %; Platelet Count 238 10*3/uL (140-440); RBC 3.15 10*6/uL (4.40-5.60); RDW 16.5 % (11.5-14.5); WBC 7.07 10*3/uL (4.50-10.00)
[2025-01-25 16:22] LABS: Glucose,Whole Blood 147 mg/dL (70-110)
--- NOTE | 2025-01-25 17:18 | P.PN ---
Subjective Progress Note Date: 01/25/25 Hospital course: Patient is a 74-year-old male with a history of type 2 diabetes melitis, hypothyroidism, hypertension, atrial fibrillation was brought to the ER via EMS from care home for altered mental status. History is obtained by reviewing ER and EMS notes. Patient was recently hospitalized for sepsis secondary to UTI and cellulitis of the left lower extremity and SIMRAN and was discharged on dap tomycin and ceftriaxone for 2 weeks, sent to care home for rehabilitation. On arrival to the ED, patient was found to be hypoxic and was put on BiPAP. Initial laboratory evaluation WBC 13.45, hemoglobin 9.5, platelet count 676, sodium 138, potassium 5.8, chloride 92, bicarb 17, BUN 114, creatinine 4.55, glucose 227, magnesium 3.0, calcium 8.5, lactic acid 0.9, ALP 144, AST 20 ALT 20, creatinine kinase 130, NT proBNP 20 840, albumin 3.0. Urinalysis consistent with pyuria, hematuria and proteinuria. Chest x-ray shows no acute cardiopulmonary process. 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 EKG consistent with normal sinus rhythm with ventricular rate of 84 bpm, NM interval 144 ms, QRS duration 102 ms, QTc [address] T wave elevation noted. Normal R wave progression noted. Infectious disease was consulted. Nephrology was consulted. Patient is started on IV daptomycin and ceftriaxone. At the time of interview, patient is currently on BiPAP with a setting of 12/6 with a flow rate of 10 and oxygen at 30%. 01/16/2025: Patient seen and examined at the bedside. Patient continues to be on BiPAP. Patient is awake but not alert and oriented to time place and person. Lab work today shows WBC 7.82, hemoglobin 8.1, hematocrit 26.3, MCV 91.3, platelet count 581, sodium 129, potassium 5.2, BUN 20, creatinine 5.10, hemoglobin A1c 8.5, calcium 7.9, magnesium 3.0. Urine output was 500 mL in 24 hours. Patient to undergo hemodialysis today and tomorrow. 01/17/2025 Patient seen and examined at side. Patient currently undergoing hemodialysis with a goal of 0.5 L. Hemodialysis yesterday with output of 0.5 L. Patient states but more alert and awake today. Follows verbal command. Continues to be on BiPAP. Urine cultures negative. Blood culture preliminary report shows no bacterial growth. WBC 9.06, hemoglobin 8.5, sodium 132, potassium 12.5, BUN 101, creatinine 4.62, calcium 8.1, magnesium 2.9. 01/18/2025 Patient seen and examined at the bedside. Patient lying comfortably on the bed. Currently getting hemodialysis. 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 Slightly more awake alert compared to yesterday. He is following verbal commands. White cell count was 9.8, hemoglobin 9.0, hematocrit 28.5, platelet count 509, sodium 132, potassium 5.1, BUN 38, creatinine 4.68, calcium 8.1, magnesium 2.7. 01/19/2025. Patient seen examined. Patient was undergoing dialysis but could not complete the cycle today because of episodes of bradycardia. Patient is currently on room air. Patient is alert but mental status waxes and wanes. Labs reviewed showed WBC 9.03, hemoglobin 8.5, sodium 135, potassium 4.5, BUN 45, creatinine 4.30 01/20/2025 no new labs from today. Patient seen and examined at the bedside. No acute events overnight. Patient to undergo hemodialysis session today. Patient could not complete the hemodialysis yesterday because of the bradycardic episodes. She is currently on room air and is hemodynamically stable. No new labs from today. 01/21. Patient seen and examined. Patient did tolerate dialysis yesterday but his heart rate is ranging in the low 40s. Discussed with nephrology, they suggested that if patient heart rate continues to be in the 40s patient may not be able to undergo outpatient dialysis 01/22/2025 Patient seen and examined at the bedside. No acute events overnight. Patient currently undergoing hemodialysis with a goal of 1 L. Patient tolerated dialysis yesterday and was bradycardic in his 40s. Lab work from today shows WBC 7.6, hemoglobin 9.0, sodium 126, BUN 80, creatinine 4.3. 01/23/2025 Patient seen and examined at bedside. No acute events overnight. No shortness of breath, chest pain, nausea, vomiting. Patient underwent hemodialysis yesterday with net output of 1.1 L. Patient tolerated hemodialysis well yesterday. Sodium 124, BUN 79, creatinine 3.47, calcium 8.3, magnesium 2.4. Patient to undergo hemodialysis tomorrow. Anticipating discharge within 24 to 48 hours to subacute rehab. 01/24/2025 Patient seen and examined at bedside. No acute events overnight. Patient denies shortness of breath, chest pain, abdominal pain, dysuria. His renal function started to improve. Creatinine today 3.4. Urine output is 1.2 L in 24 hours. Patient is currently on IV Lasix 60 mg twice daily. Possible hemodialysis today. Access is in the right groin area. Rest of the lab work shows sodium 127, potassium 4.5, phosphorus 6.8. Patient continues to be on IV Rocephin and daptomycin for lower extremity wounds. 01/25/2025 Patient seen and examined at the bedside. No acute events overnight. His renal function continues to improve. Creatinine improved to 3.15. Urine output was 1.5 L in 24 hours. Hemodialysis session today. Patient continues to be on IV Lasix 60 mg twice daily. Continues to be on IV Rocephin and daptomycin for lower extremity wounds. Rest of the lab shows WBC 7.0, hemoglobin 9.0, 2127, potassium 4.4, calcium 8.4, magnesium 2.2 Physical examination: General: non toxic, no distress, appears at stated age, obese Derm: Multiple chronic lesions on bilateral extremities, legs wrapped Head: atraumatic, normocephalic, symmetric Eyes: EOMI, no lid lag, anicteric sclera, pupils equal round reactive to light ENT: Nose and ears atraumatic, Cardiovascular: S1S2 reg, no murmur 3+ lower extremity pitting edema Lungs: CTA bilateral, diminished at the bases Abdominal: soft, nontender to palpation, no guarding Ext: muscle strength 5 out of 5 in all 4 extremities grossly, no gross muscle atrophy, no contractures, Neuro: CN II-XI grossly intact, no gross focal neuro deficits Psych: Alert, oriented, appropriate affect Assessment/Plan: This is a 74-year-old male with a history of type 2 diabetes melitis, hypothyroidism, hypertension, atrial fibrillation was brought to the ER via EMS from care home for altered mental status. Case was discussed with the Emergency Room provider and decision was made to admit the patient for acute toxic metabolic encephalopathy, SIMRAN, UTI Active: #Sepsis secondary to UTI #SIMRAN secondary to ATN secondary to sepsis #Hypervolemic hyponatremia, improving #Hyperkalemia secondary to SIMRAN, improved #Hypermagnesemia #Acute toxic metabolic encephalopathy secondary to above, at baseline mentation #Bilateral lower extremity cellulitis, on IV antibiotics Continue with IV Rocephin and IV daptomycin Blood culture and urine culture negative ID following, appreciate recommendation Nephrology following, recommendations noted from 01/25 Hemodialysis today #Acute hypoxic respiratory failure, was on BiPAP, currently on room air #Volume overload #HFpEF, not in exacerbation Continue oxygen supplementation Use of BiPAP as needed Echocardiogram was done on 12/30/2024 showed preserved LV function of 55 to 60% with moderate . Pulmonology following #History of seizure disorder Neurology on board, Continue Depakote 125 mg p.o. twice daily #Anemia of the chronic disease, baseline between - Hemoglobin at 9 Continue monitor hemoglobin No active bleeding Transfuse with packed RBC if hemoglobin less than 7 #Type 2 diabetes Continue Lantus 20 units subcu daily Continue patient on sliding scale insulin Monitor for hypoglycemia #Generalized weakness PT and OT consulted CODE STATUS: DNI Attestation: I have seen and examined this patient with my resident, assessment and plan discussed with the resident, agree with assessment and plan as written above. Dr. Coronado Objective - Vital Signs Vital signs: Vital Signs Temp 97.6 F 01/25/25 14:54 Pulse 66 01/25/25 14:54 Resp 18 01/25/25 14:54 BP 163/83 01/25/25 14:54 Pulse Ox 94 L 01/25/25 12:00 FiO2 30 01/18/25 04:00 Intake & Output 01/24/25 01/25/25 01/25/25 18:59 06:59 18:59 Intake Total 660 240 740 Output Total 5100 1050 4500 Balance -4440 -810 -3100 Weight 114.5 kg Intake: Oral 360 240 240 Hemodialysis 300 500 Output: Urine 800 1050 Stool 0 0 Hemodialysis 2300 2500 Hemodialysis Net Amount 1999 1999 Other: Voiding Method Indwelling Catheter Indwelling Catheter Indwelling Catheter # Bowel Movements 1 - Labs CBC & Chem 7: 01/25/25 15:39 01/25/25 06:31 Labs: Abnormal Lab Results - Last 24 Hours (Table) 01/25/25 01/25/25 01/25/25 Range/Units 06:31 11:17 15:39 RBC 3.15 L (4.40-5.60) 10*6/uL Hgb 9.0 L (13.0-17.0) g/dL Hct 27.5 L (39.6-50.0) % MPV 9.0 L (9.5-12.2) fL Immature Gran # 0.05 H (0.00-0.04) 10*3/uL Eosinophils # 1.06 H (0.04-0.35) 10*3/uL Sodium 127 L (137-145) mmol/L Chloride 92 L (98-107) mmol/L BUN 98 H (9-20) mg/dL Creatinine 3.15 H (0.66-1.25) mg/dL POC Glucose (mg/dL) 127 H (70-110) mg/dL 01/25/25 Range/Units 16:19 RBC (4.40-5.60) 10*6/uL Hgb (13.0-17.0) g/dL Hct (39.6-50.0) % MPV (9.5-12.2) fL Immature Gran # (0.00-0.04) 10*3/uL Eosinophils # (0.04-0.35) 10*3/uL Sodium (137-145) mmol/L Chloride (98-107) mmol/L BUN (9-20) mg/dL Creatinine (0.66-1.25) mg/dL POC Glucose (mg/dL) 147 H (70-110) mg/dL
[2025-01-25 20:05] LABS: Glucose,Whole Blood 128 mg/dL (70-110)
[2025-01-26 06:07] LABS: Glucose,Whole Blood 120 mg/dL (70-110)
[2025-01-26 07:30] LABS: African American GFR (CKD) 21 (>60 ml/min/1.73 sqM); Anion Gap 10 mmol/L; Blood Urea Nitrogen 97 mg/dL (9-20); Calcium 8.5 mg/dL (8.4-10.2); Carbon Dioxide 22 mmol/L (22-30); Chloride 95 mmol/L (98-107); Glucose 105 mg/dL (74-99); Non-African American GFR(CKD) 18 (>60 ml/min/1.73 sqM); Potassium 4.2 mmol/L (3.5-5.1); Sodium 127 mmol/L (137-145)
[2025-01-26] MEDS: ZINC OXIDE PASTE (Z-GUARD) 1 APPLIC TOPICAL PRN (09:23)
--- NOTE | 2025-01-26 10:54 | P.PN ---
Subjective Patient is seen in follow-up for acute kidney injury on chronic kidney disease. Has Astorga catheter. Nonoliguric. On IV Lasix. Oral intake fair. Underwent UF only treatments last 2 days. Vital signs are stable. General: No acute distress. HEENT: On room air. LUNGS: No audible rhonchi or wheezes. HEART: Rate and Rhythm are regular. ABDOMEN: No distention. EXTREMITITES: Chronic changes noted. 1+ edema. Wrapped. Objective - Vital Signs Vital signs: Vital Signs Temp 98.4 F 01/26/25 07:50 Pulse 66 01/26/25 07:50 Resp 20 01/26/25 07:50 BP 157/82 01/26/25 07:50 Pulse Ox 93 L 01/26/25 07:50 FiO2 30 01/18/25 04:00 Intake & Output 01/25/25 01/26/25 01/26/25 18:59 06:59 18:59 Intake Total 860 120 Output Total 5200 700 Balance -4340 -700 120 Weight 114 kg Intake: Oral 360 120 Hemodialysis 500 Output: Urine 700 700 Stool 0 Hemodialysis 2500 Hemodialysis Net Amount 2000 Other: Voiding Method Indwelling Catheter Indwelling Catheter Indwelling Catheter # Bowel Movements 1 1 1 - Labs CBC & Chem 7: 01/25/25 15:39 01/26/25 06:14 Labs: Abnormal Lab Results - Last 24 Hours (Table) 01/25/25 01/25/25 01/25/25 Range/Units 11:17 15:39 16:19 RBC 3.15 L (4.40-5.60) 10*6/uL Hgb 9.0 L (13.0-17.0) g/dL Hct 27.5 L (39.6-50.0) % MPV 9.0 L (9.5-12.2) fL Immature Gran # 0.05 H (0.00-0.04) 10*3/uL Eosinophils # 1.06 H (0.04-0.35) 10*3/uL Sodium (137-145) mmol/L Chloride (98-107) mmol/L BUN (9-20) mg/dL Creatinine (0.66-1.25) mg/dL Glucose (74-99) mg/dL POC Glucose (mg/dL) 127 H 147 H (70-110) mg/dL 01/25/25 01/26/25 01/26/25 Range/Units 20:03 06:06 06:14 RBC (4.40-5.60) 10*6/uL Hgb (13.0-17.0) g/dL Hct (39.6-50.0) % MPV (9.5-12.2) fL Immature Gran # (0.00-0.04) 10*3/uL Eosinophils # (0.04-0.35) 10*3/uL Sodium 127 L (137-145) mmol/L Chloride 95 L (98-107) mmol/L BUN 97 H (9-20) mg/dL Creatinine 3.24 H (0.66-1.25) mg/dL Glucose 105 H (74-99) mg/dL POC Glucose (mg/dL) 128 H 120 H (70-110) mg/dL Assessment and Plan Plan: Assessment: 1. Acute kidney injury secondary to ATN secondary to severe sepsis. Creatinine 5.1 dated January 16, 2025. Started on dialysis January 16, 2025. Has femoral catheter. Kidney ultrasound from December 2024 showed no evidence of hydronephrosis. Last dialysis January 22, 2025. Creatinine stable at 3.24. 2. Chronic kidney disease stage IIIa with baseline creatinine 1.2-1.4. 3. Chronic diastolic CHF and moderate aortic stenosis. 4. Hyperkalemia secondary to acute kidney injury and acidosis. Better. 5. Metabolic acidosis secondary to acute kidney injury and IV fluids. Also on metformin. Improved with bicarb drip and dialysis. 6. Hyponatremia secondary to acute kidney injury, hypervolemic. 7. Severe sepsis secondary to UTI. Also had recent cellulitis. On antibiotics. 8. Anemia due to acute illness and chronic kidney disease. On Aranesp. 9. Volume overload. Improving with UF and diuresis. 10. Hyperphosphatemia secondary to acute kidney injury. On PhosLo. Phosphorus level 6.8 dated January 24, 2025. Plan: Plan for another UF only treatment today. Discontinue femoral dialysis catheter after treatment today. Maintain IV Lasix. Maintain Astorga catheter. Metformin discontinued. Avoid nephrotoxins. Monitor for renal recovery. Encouraged oral intake. Maintain fluid restriction.
[2025-01-26 11:20] LABS: Glucose,Whole Blood 119 mg/dL (70-110)
--- NOTE | 2025-01-26 13:21 | P.PN ---
Subjective Progress Note Date: 01/26/25 I have seen the patient last on 01/18/2025 and since then was under the care by Dr. Nichols. The patient continues to be on dialysis and his mentation is drastically better. He denies of any new neurological issues. Objective - Vital Signs Vital signs: Vital Signs Temp 98.1 F 01/26/25 13:06 Pulse 57 L 01/26/25 13:06 Resp 19 01/26/25 13:06 BP 144/78 01/26/25 13:06 Pulse Ox 96 01/26/25 12:22 FiO2 30 01/18/25 04:00 Intake & Output 01/25/25 01/26/25 01/26/25 18:59 06:59 18:59 Intake Total 860 645 Output Total 5200 700 3600 Balance -7220 700 -2955 Weight 114 kg Intake: IV 75 0.9 75 Intake, IV Titration 50 Amount cefTRIAXone 2 gm In 50 Sodium Chloride 0.9% 50 ml @ 100 mls/hr IVPB Q24HR [facility] Rx#:[id number] Oral 360 120 Hemodialysis 500 400 Output: Urine 700 700 Stool 0 Hemodialysis 2500 2000 Hemodialysis Net Amount 2000 1600 Other: Voiding Method Indwelling Catheter Indwelling Catheter Indwelling Catheter # Bowel Movements 1 1 1 - Exam General: Lying in bed and does not appear in in acute distress. Is getting dialysis. Neuro: He is oriented to self, place and time. Is following simple commands. No aphasia. No facial weakness. Motor: Lifting upper extremities above gravity and wiggling toes. He has left side jerks and is responsive during these episodes and states this is chronic. Some of the workup during this hospital visit consisted of: Creatinine during this admission is as high as 5.10 and at baseline it is between 1-3. BUN is as high as 120 ---> trending down Sodium is 128 and currently is 129 Ammonia is 21 I reviewed the rest of the lab workup Urine analysis seems suggestive of acute urinary tract infection CT of the head is reported as no acute bleed or mass effect. Multiple remote infarct as described above. I personally reviewed the CT and I agree with there is no acute process. He does have old strokes. - Labs CBC & Chem 7: 01/25/25 15:39 01/26/25 06:14 Labs: Abnormal Lab Results - Last 24 Hours (Table) 01/25/25 01/25/25 01/25/25 Range/Units 15:39 16:19 20:03 RBC 3.15 L (4.40-5.60) 10*6/uL Hgb 9.0 L (13.0-17.0) g/dL Hct 27.5 L (39.6-50.0) % MPV 9.0 L (9.5-12.2) fL Immature Gran # 0.05 H (0.00-0.04) 10*3/uL Eosinophils # 1.06 H (0.04-0.35) 10*3/uL Sodium (137-145) mmol/L Chloride (98-107) mmol/L BUN (9-20) mg/dL Creatinine (0.66-1.25) mg/dL Glucose (74-99) mg/dL POC Glucose (mg/dL) 147 H 128 H (70-110) mg/dL 01/26/25 01/26/25 01/26/25 Range/Units 06:06 06:14 11:18 RBC (4.40-5.60) 10*6/uL Hgb (13.0-17.0) g/dL Hct (39.6-50.0) % MPV (9.5-12.2) fL Immature Gran # (0.00-0.04) 10*3/uL Eosinophils # (0.04-0.35) 10*3/uL Sodium 127 L (137-145) mmol/L Chloride 95 L (98-107) mmol/L BUN 97 H (9-20) mg/dL Creatinine 3.24 H (0.66-1.25) mg/dL Glucose 105 H (74-99) mg/dL POC Glucose (mg/dL) 120 H 119 H (70-110) mg/dL Assessment and Plan Assessment: This is a 74-year-old gentleman with history of seizure who presents emergency department because of altered mental status. He has acute kidney injury with hyponatremia and today he had temporary dialysis catheter placement. Patient is in respiratory distress and he is on BiPAP Altered mental status due toxic-metabolic encephalopathy. Patient has acute kidney injury, hyponatremia, also has hypoxic encephalopathy and is getting dialysis, he is off BiPAP--mentation is improving. His confusion is not due to breakthrough seizure Acute on chronic kidney injury status post temporary catheter dialysis on 01/16/2025 Myoclonic jerks due to SIMRAN Probable acute UTI Hyponatremia Acute respiratory distress is on BiPAP History of seizures History of strokes Plan: Patient is resumed on his home medication of Depakote and he is on gabapentin. No need for EEG since mentation is drastically improved. It was attempted multi ple times but he was on Dialysis. Pulmonary team is on board Nephrology team is on board. Patient getting hemodialysis. ID team is on board. Will defer the rest of the medical management to primary and other specialist There is no further neurological work-up. Will sign off. Please reconsult if needed. Time with Patient: Less than 30
--- NOTE | 2025-01-26 15:12 | P.PN ---
Subjective Progress Note Date: 01/26/25 Principal diagnosis: Acute kidney injury need for hemodialysis Seen and examined today as a follow-up. He was scheduled to undergo hemodialysis treatment today which she did. No complications. Asked to come back to see patient to remove right femoral temp catheter. Objective - Vital Signs Vital signs: Vital Signs Temp 98.1 F 01/26/25 13:06 Pulse 57 L 01/26/25 13:06 Resp 19 01/26/25 13:06 BP 144/78 01/26/25 13:06 Pulse Ox 96 01/26/25 12:22 FiO2 30 01/18/25 04:00 Intake & Output 01/25/25 01/26/25 01/26/25 18:59 06:59 18:59 Intake Total 860 645 Output Total 5200 700 3600 Balance -8189 -397 -8382 Weight 114 kg Intake: IV 75 0.9 75 Intake, IV Titration 50 Amount cefTRIAXone 2 gm In 50 Sodium Chloride 0.9% 50 ml @ 100 mls/hr IVPB Q24HR [facility] Rx#:[id number] Oral 360 120 Hemodialysis 500 400 Output: Urine 700 700 Stool 0 Hemodialysis 2500 2000 Hemodialysis Net Amount 2000 1600 Other: Voiding Method Indwelling Catheter Indwelling Catheter Indwelling Catheter # Bowel Movements 1 1 1 - Exam General appearance: The patient is awake and alert to self. Obese HET: Head is normocephalic and atraumatic. Neck: Supple. Abdomen: Soft, nontender, nondistended. Extremities: Normal skin color and turgor. Right groin with temporary HD catheter in place without any bleeding. Neurological: Awake and alert to name. - Labs CBC & Chem 7: 01/25/25 15:39 01/26/25 06:14 Labs: Abnormal Lab Results - Last 24 Hours (Table) 01/25/25 01/25/25 01/25/25 Range/Units 15:39 16:19 20:03 RBC 3.15 L (4.40-5.60) 10*6/uL Hgb 9.0 L (13.0-17.0) g/dL Hct 27.5 L (39.6-50.0) % MPV 9.0 L (9.5-12.2) fL Immature Gran # 0.05 H (0.00-0.04) 10*3/uL Eosinophils # 1.06 H (0.04-0.35) 10*3/uL Sodium (137-145) mmol/L Chloride (98-107) mmol/L BUN (9-20) mg/dL Creatinine (0.66-1.25) mg/dL Glucose (74-99) mg/dL POC Glucose (mg/dL) 147 H 128 H (70-110) mg/dL 01/26/25 01/26/25 01/26/25 Range/Units 06:06 06:14 11:18 RBC (4.40-5.60) 10*6/uL Hgb (13.0-17.0) g/dL Hct (39.6-50.0) % MPV (9.5-12.2) fL Immature Gran # (0.00-0.04) 10*3/uL Eosinophils # (0.04-0.35) 10*3/uL Sodium 127 L (137-145) mmol/L Chloride 95 L (98-107) mmol/L BUN 97 H (9-20) mg/dL Creatinine 3.24 H (0.66-1.25) mg/dL Glucose 105 H (74-99) mg/dL POC Glucose (mg/dL) 120 H 119 H (70-110) mg/dL Assessment and Plan Assessment: 1. Acute kidney injury requiring renal replacement therapy status post temporary HD catheter placement with improved kidney function 2. Chronic kidney disease 3. Acute metabolic encephalopathy 4. Sepsis secondary to UTI and he has cellulitis of lower extremities 5. Hypoxic on BiPAP Plan: Right groin temporary HD catheter removed without any complications tip intact. No heavy bleeding. Hemostasis achieved with pressure. Discussed with nursing to continue to reassess right groin for any bleeding. Nephrology would like to evaluate patient through the weekend without renal replacement therapy with further recommendations forthcoming regarding possible need for tunnel catheter placement. We will reevaluate on Wednesday. The impression and plan of care has been dictated as directed. I performed a history and examination of this patient, discussed the same with the dictator. I agree with the dictator's note ,documented as a scribe. Any additional findings or plans will be noted.
--- NOTE | 2025-01-26 15:21 | P.PN ---
Subjective Progress Note Date: 01/26/25 Principal diagnosis: Reason for follow-up is left lower extremity cellulitis UTI Patient is a 74-year-old male with a past medical history significant for hypertension hyperlipidemia heart failure atrial fibrillation recent admitted to this facility with extensive left lower extremity cellulitis patient local culture positive for MRSA Proteus along with Enterococcus faecalis for which the patient got midline and was advised a 10-day course of IV Rocephin and daptomycin not been sent to the hospital with hypoxemia and mental status changes did have a positive UA. On today's evaluation that is 01/26/2025,the patient remains to be afebrile, patient is on room air not requiring supplemental oxygen and denies any shortness of breath no chest pain or cough.Patient denies having any nausea or vomiting, no abdominal pain and no diarrhea has been reported, feeling better. Patient did have creatinine of 3.24 no CBC was done today Objective - Vital Signs Vital signs: Vital Signs Temp 98.1 F 01/26/25 13:06 Pulse 57 L 01/26/25 13:06 Resp 19 01/26/25 13:06 BP 144/78 01/26/25 13:06 Pulse Ox 96 01/26/25 12:22 FiO2 30 01/18/25 04:00 Intake & Output 01/25/25 01/26/25 01/26/25 18:59 06:59 18:59 Intake Total 860 645 Output Total 5200 700 3600 Balance -6811 -135 -1096 Weight 114 kg Intake: IV 75 0.9 75 Intake, IV Titration 50 Amount cefTRIAXone 2 gm In 50 Sodium Chloride 0.9% 50 ml @ 100 mls/hr IVPB Q24HR [facility] Rx#:[id number] Oral 360 120 Hemodialysis 500 400 Output: Urine 700 700 Stool 0 Hemodialysis 2500 2000 Hemodialysis Net Amount 2000 1600 Other: Voiding Method Indwelling Catheter Indwelling Catheter Indwelling Catheter # Bowel Movements 1 1 1 - Exam GENERAL DESCRIPTION: An elderly male lying in bed in no distress RESPIRATORY SYSTEM: Unlabored breathing , decreased breath sounds at bases HEART: S1 S2 regular rate and rhythm , ABDOMEN: Soft , no tenderness EXTREMITIES: Left lateral leg did have a stage II pressure ulcer surrounding redness has improved Patient did have a bilateral gluteal stage II pressure ulcer but no cellulitis Left big toe did have dried up wound - Labs CBC & Chem 7: 01/25/25 15:39 01/26/25 06:14 Labs: Abnormal Lab Results - Last 24 Hours (Table) 01/25/25 01/25/25 01/25/25 Range/Units 15:39 16:19 20:03 RBC 3.15 L (4.40-5.60) 10*6/uL Hgb 9.0 L (13.0-17.0) g/dL Hct 27.5 L (39.6-50.0) % MPV 9.0 L (9.5-12.2) fL Immature Gran # 0.05 H (0.00-0.04) 10*3/uL Eosinophils # 1.06 H (0.04-0.35) 10*3/uL Sodium (137-145) mmol/L Chloride (98-107) mmol/L BUN (9-20) mg/dL Creatinine (0.66-1.25) mg/dL Glucose (74-99) mg/dL POC Glucose (mg/dL) 147 H 128 H (70-110) mg/dL 01/26/25 01/26/25 01/26/25 Range/Units 06:06 06:14 11:18 RBC (4.40-5.60) 10*6/uL Hgb (13.0-17.0) g/dL Hct (39.6-50.0) % MPV (9.5-12.2) fL Immature Gran # (0.00-0.04) 10*3/uL Eosinophils # (0.04-0.35) 10*3/uL Sodium 127 L (137-145) mmol/L Chloride 95 L (98-107) mmol/L BUN 97 H (9-20) mg/dL Creatinine 3.24 H (0.66-1.25) mg/dL Glucose 105 H (74-99) mg/dL POC Glucose (mg/dL) 120 H 119 H (70-110) mg/dL Assessment and Plan (1) Encephalopathy Current Visit: Yes Status: Acute Code(s): G93.40 - ENCEPHALOPATHY, UNSPECIFIED SNOMED Code(s): 24275747 (2) UTI (urinary tract infection) Current Visit: Yes Status: Acute Code(s): N39.0 - URINARY TRACT INFECTION, SITE NOT SPECIFIED SNOMED Code(s): 72371151 (3) Cellulitis of left leg Current Visit: No Status: Acute Code(s): L03.116 - CELLULITIS OF LEFT LOWER LIMB SNOMED Code(s): 05522107403855569 Plan: 1patient presented to hospital with mental status changes lethargy which is likely multifactorial in this patient noticed to have significant worsening of his kidney function and this patient was getting treatment for his left lower extremity wound and cellulitis which has shown some improvement but not complete resolution of the left lower extremity cellulitis, with recent culture positive for Proteus and MRSA 2-patient also has a positive UA however culture have been negative 3-patient is afebrile white count has normalized, 4patient did have improvement of the left lower extremity cellulitis wound to the left lower leg healing advised local care with a dry Aquacel silver dressing change every 48 hours will continue daptomycin and Rocephin over the weekend hopefully will not need any antibiotic on discharge Dictation was produced using [employer] dictation software. please excuse any grammatical, word or spelling errors. Time with Patient: Less than 30
--- NOTE | 2025-01-26 15:21 | P.PN ---
Subjective Progress Note Date: 01/26/25 Hospital course: Patient is a 74-year-old male with a history of type 2 diabetes melitis, hypothyroidism, hypertension, atrial fibrillation was brought to the ER via EMS from [facility] for altered mental status. History is obtained by reviewing ER and EMS notes. Patient was recently hospitalized for sepsis secondary to UTI and cellulitis of the left lower extremity and SIMRAN and was discharged on dap tomycin and ceftriaxone for 2 weeks, sent to [facility] for [facility]. On arrival to the ED, patient was found to be hypoxic and was put on BiPAP. Initial laboratory evaluation WBC 13.45, hemoglobin 9.5, platelet count 676, sodium 138, potassium 5.8, chloride 92, bicarb 17, BUN 114, creatinine 4.55, glucose 227, magnesium 3.0, calcium 8.5, lactic acid 0.9, ALP 144, AST 20 ALT 20, creatinine kinase 130, NT proBNP 20 840, albumin 3.0. Urinalysis consistent with pyuria, hematuria and proteinuria. Chest x-ray shows no acute cardiopulmonary process. 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 EKG consistent with normal sinus rhythm with ventricular rate of 84 bpm, MN interval 144 ms, QRS duration 102 ms, QTc [address] T wave elevation noted. Normal R wave progression noted. Infectious disease was consulted. Nephrology was consulted. Patient is started on IV daptomycin and ceftriaxone. At the time of interview, patient is currently on BiPAP with a setting of 12/6 with a flow rate of 10 and oxygen at 30%. 01/16/2025: Patient seen and examined at the bedside. Patient continues to be on BiPAP. Patient is awake but not alert and oriented to time place and person. Lab work today shows WBC 7.82, hemoglobin 8.1, hematocrit 26.3, MCV 91.3, platelet count 581, sodium 129, potassium 5.2, BUN 20, creatinine 5.10, hemoglobin A1c 8.5, calcium 7.9, magnesium 3.0. Urine output was 500 mL in 24 hours. Patient to undergo hemodialysis today and tomorrow. 01/17/2025 Patient seen and examined at side. Patient currently undergoing hemodialysis with a goal of 0.5 L. Hemodialysis yesterday with output of 0.5 L. Patient states but more alert and awake today. Follows verbal command. Continues to be on BiPAP. Urine cultures negative. Blood culture preliminary report shows no bacterial growth. WBC 9.06, hemoglobin 8.5, sodium 132, potassium 12.5, BUN 101, creatinine 4.62, calcium 8.1, magnesium 2.9. 01/18/2025 Patient seen and examined at the bedside. Patient lying comfortably on the bed. Currently getting hemodialysis. 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 Slightly more awake alert compared to yesterday. He is following verbal commands. White cell count was 9.8, hemoglobin 9.0, hematocrit 28.5, platelet count 509, sodium 132, potassium 5.1, BUN 38, creatinine 4.68, calcium 8.1, magnesium 2.7. 01/19/2025. Patient seen examined. Patient was undergoing dialysis but could not complete the cycle today because of episodes of bradycardia. Patient is currently on room air. Patient is alert but mental status waxes and wanes. Labs reviewed showed WBC 9.03, hemoglobin 8.5, sodium 135, potassium 4.5, BUN 45, creatinine 4.30 01/20/2025 no new labs from today. Patient seen and examined at the bedside. No acute events overnight. Patient to undergo hemodialysis session today. Patient could not complete the hemodialysis yesterday because of the bradycardic episodes. She is currently on room air and is hemodynamically stable. No new labs from today. 01/21. Patient seen and examined. Patient did tolerate dialysis yesterday but his heart rate is ranging in the low 40s. Discussed with nephrology, they suggested that if patient heart rate continues to be in the 40s patient may not be able to undergo outpatient dialysis 01/22/2025 Patient seen and examined at the bedside. No acute events overnight. Patient currently undergoing hemodialysis with a goal of 1 L. Patient tolerated dialysis yesterday and was bradycardic in his 40s. Lab work from today shows WBC 7.6, hemoglobin 9.0, sodium 126, BUN 80, creatinine 4.3. 01/23/2025 Patient seen and examined at bedside. No acute events overnight. No shortness of breath, chest pain, nausea, vomiting. Patient underwent hemodialysis yesterday with net output of 1.1 L. Patient tolerated hemodialysis well yesterday. Sodium 124, BUN 79, creatinine 3.47, calcium 8.3, magnesium 2.4. Patient to undergo hemodialysis tomorrow. Anticipating discharge within 24 to 48 hours to subacute rehab. 01/24/2025 Patient seen and examined at bedside. No acute events overnight. Patient denies shortness of breath, chest pain, abdominal pain, dysuria. His renal function started to improve. Creatinine today 3.4. Urine output is 1.2 L in 24 hours. Patient is currently on IV Lasix 60 mg twice daily. Possible hemodialysis today. Access is in the right groin area. Rest of the lab work shows sodium 127, potassium 4.5, phosphorus 6.8. Patient continues to be on IV Rocephin and daptomycin for lower extremity wounds. 01/25/2025 Patient seen and examined at the bedside. No acute events overnight. His renal function continues to improve. Creatinine improved to 3.15. Urine output was 1.5 L in 24 hours. Hemodialysis session today. Patient continues to be on IV Lasix 60 mg twice daily. Continues to be on IV Rocephin and daptomycin for lower extremity wounds. Rest of the lab shows WBC 7.0, hemoglobin 9.0, 2127, potassium 4.4, calcium 8.4, magnesium 2.2 12/30/2024 Patient was seen and examined at the bedside. No acute events overnight. Patient undergoing hemodialysis today. Underwent hemodialysis yesterday successfully. The goal is to remove right groin temporary dialysis catheter today and observe the patient over the weekend with a possible placement of permanent dialysis catheter on Wednesday if patient is unsuccessful in regaining renal function. Patient continue to be at baseline mentation. Sodium 127, potassium 4.2, BUN 97, creatinine 3.24, calcium 8.5. Monitor BMP for tomorrow. Physical examination: General: non toxic, no distress, appears at stated age, obese Derm: Multiple chronic lesions on bilateral extremities, legs wrapped Head: atraumatic, normocephalic, symmetric Eyes: EOMI, no lid lag, anicteric sclera, pupils equal round reactive to light ENT: Nose and ears atraumatic, Cardiovascular: S1S2 reg, no murmur 3+ lower extremity pitting edema Lungs: CTA bilateral, diminished at the bases Abdominal: soft, nontender to palpation, no guarding Ext: muscle strength 5 out of 5 in all 4 extremities grossly, no gross muscle atrophy, no contractures, Neuro: CN II-XI grossly intact, no gross focal neuro deficits Psych: Alert, oriented, appropriate affect Assessment/Plan: This is a 74-year-old male with a history of type 2 diabetes melitis, hypothyroidism, hypertension, atrial fibrillation was brought to the ER via EMS from [facility] for altered mental status. Case was discussed with the Emergency Room provider and decision was made to admit the patient for acute toxic metabolic encephalopathy, SIMRAN, UTI Active: #Sepsis secondary to UTI #SIMRAN secondary to ATN secondary to sepsis #Hypervolemic hyponatremia, improving #Hyperkalemia secondary to SIMRAN, improved #Hypermagnesemia #Acute toxic metabolic encephalopathy secondary to above, at baseline mentation #Bilateral lower extremity cellulitis, on IV antibiotics Continue with IV Rocephin and IV daptomycin Blood culture and urine culture negative ID following, appreciate recommendation Nephrology following, recommendations noted from 01/26 Hemodialysis today #Acute hypoxic respiratory failure, was on BiPAP, currently on room air #Volume overload, improving #HFpEF, not in exacerbation Continue oxygen supplementation Use of BiPAP as needed Echocardiogram was done on 12/30/2024 showed preserved LV function of 55 to 60% with moderate . Pulmonology following #History of seizure disorder Neurology on board, Continue Depakote 125 mg p.o. twice daily #Anemia of the chronic disease, baseline between 10-11 Hemoglobin at 9 Continue monitor hemoglobin No active bleeding Transfuse with packed RBC if hemoglobin less than 7 #Type 2 diabetes Continue Lantus 20 units subcu daily Continue patient on sliding scale insulin Monitor for hypoglycemia #Generalized weakness PT and OT consulted CODE STATUS: DNI Attestation: I have seen and examined this patient with my resident, assessment and plan discussed with the resident, agree with assessment and plan as written above. Dr. Coronado Objective - Vital Signs Vital signs: Vital Signs Temp 98.1 F 01/26/25 13:06 Pulse 57 L 01/26/25 13:06 Resp 19 01/26/25 13:06 BP 144/78 01/26/25 13:06 Pulse Ox 96 01/26/25 12:22 FiO2 30 01/18/25 04:00 Intake & Output 01/25/25 01/26/25 01/26/25 18:59 06:59 18:59 Intake Total 860 645 Output Total 5200 700 3600 Balance -4340 -700 -2955 Weight 114 kg Intake: IV 75 0.9 75 Intake, IV Titration 50 Amount cefTRIAXone 2 gm In 50 Sodium Chloride 0.9% 50 ml @ 100 mls/hr IVPB Q24HR [facility] Rx#:[id number] Oral 360 120 Hemodialysis 500 400 Output: Urine 700 700 Stool 0 Hemodialysis 2500 2000 Hemodialysis Net Amount 2000 1600 Other: Voiding Method Indwelling Catheter Indwelling Catheter Indwelling Catheter # Bowel Movements 1 1 1 - Labs CBC & Chem 7: 01/25/25 15:39 01/26/25 06:14 Labs: Abnormal Lab Results - Last 24 Hours (Table) 01/25/25 01/25/25 01/25/25 Range/Units 15:39 16:19 20:03 RBC 3.15 L (4.40-5.60) 10*6/uL Hgb 9.0 L (13.0-17.0) g/dL Hct 27.5 L (39.6-50.0) % MPV 9.0 L (9.5-12.2) fL Immature Gran # 0.05 H (0.00-0.04) 10*3/uL Eosinophils # 1.06 H (0.04-0.35) 10*3/uL Sodium (137-145) mmol/L Chloride (98-107) mmol/L BUN (9-20) mg/dL Creatinine (0.66-1.25) mg/dL Glucose (74-99) mg/dL POC Glucose (mg/dL) 147 H 128 H (70-110) mg/dL 01/26/25 01/26/25 01/26/25 Range/Units 06:06 06:14 11:18 RBC (4.40-5.60) 10*6/uL Hgb (13.0-17.0) g/dL Hct (39.6-50.0) % MPV (9.5-12.2) fL Immature Gran # (0.00-0.04) 10*3/uL Eosinophils # (0.04-0.35) 10*3/uL Sodium 127 L (137-145) mmol/L Chloride 95 L (98-107) mmol/L BUN 97 H (9-20) mg/dL Creatinine 3.24 H (0.66-1.25) mg/dL Glucose 105 H (74-99) mg/dL POC Glucose (mg/dL) 120 H 119 H (70-110) mg/dL
[2025-01-26 16:26] LABS: Glucose,Whole Blood 116 mg/dL (70-110)
[2025-01-26 20:06] LABS: Glucose,Whole Blood 122 mg/dL (70-110)
[2025-01-27 06:06] LABS: Glucose,Whole Blood 105 mg/dL (70-110)
[2025-01-27 09:30] LABS: African American GFR (CKD) 22 (>60 ml/min/1.73 sqM); Anion Gap 13 mmol/L; Carbon Dioxide 22 mmol/L (22-30); Chloride 98 mmol/L (98-107); Glucose 141 mg/dL (74-99); Non-African American GFR(CKD) 19 (>60 ml/min/1.73 sqM); Sodium 133 mmol/L (137-145)
[2025-01-27 09:58] LABS: Blood Urea Nitrogen 103 mg/dL (9-20)
--- NOTE | 2025-01-27 10:39 | P.PN ---
Subjective Patient is seen in follow-up for acute kidney injury on chronic kidney disease. Has Astorga catheter. Nonoliguric. On IV Lasix. Oral intake fair. Underwent UF only treatments last 3 days. Last treatment was January 26, 2025. Dialysis catheter removed creatinine stable at 3.1 today. Oral intake is better. Vital signs are stable. General: No acute distress. HEENT: On room air. LUNGS: No audible rhonchi or wheezes. HEART: Rate and Rhythm are regular. ABDOMEN: No distention. EXTREMITITES: Chronic changes noted. 1+ edema. Wrapped. Objective - Vital Signs Vital signs: Vital Signs Temp 98.0 F 01/27/25 04:00 Pulse 77 01/27/25 04:00 Resp 20 01/27/25 04:00 BP 148/67 01/27/25 04:00 Pulse Ox 94 L 01/27/25 04:00 FiO2 30 01/18/25 04:00 Intake & Output 01/26/25 01/27/25 01/27/25 18:59 06:59 18:59 Intake Total 885 118 Output Total 4100 Balance -3215 118 Weight 113.2 kg Intake: IV 75 0.9 75 Intake, IV Titration 50 Amount cefTRIAXone 2 gm In 50 Sodium Chloride 0.9% 50 ml @ 100 mls/hr IVPB Q24HR [facility] Rx#:[id number] Oral 360 118 Hemodialysis 400 Output: Urine 500 Hemodialysis 2000 Hemodialysis Net Amount 1600 Other: Voiding Method Indwelling Catheter Indwelling Catheter # Bowel Movements 1 2 1 - Labs CBC & Chem 7: 01/25/25 15:39 01/27/25 08:44 Labs: Abnormal Lab Results - Last 24 Hours (Table) 01/26/25 01/26/25 01/26/25 Range/Units 11:18 16:23 20:05 Sodium (137-145) mmol/L BUN (9-20) mg/dL Creatinine (0.66-1.25) mg/dL Glucose (74-99) mg/dL POC Glucose (mg/dL) 119 H 116 H 122 H (70-110) mg/dL 01/27/25 Range/Units 08:44 Sodium 133 L (137-145) mmol/L BUN 103 H* (9-20) mg/dL Creatinine 3.11 H (0.66-1.25) mg/dL Glucose 141 H (74-99) mg/dL POC Glucose (mg/dL) (70-110) mg/dL Assessment and Plan Plan: Assessment: 1. Acute kidney injury secondary to ATN secondary to severe sepsis. Creatinine 5.1 dated January 16, 2025. Started on dialysis January 16, 2025 via femoral catheter. Kidney ultrasound from December 2024 showed no evidence of hydronephrosis. Last dialysis January 22, 2025. Creatinine stable at 3.11 today. Dialysis catheter discontinued January 26, 2025. 2. Chronic kidney disease stage IIIa with baseline creatinine 1.2-1.4. 3. Chronic diastolic CHF and moderate aortic stenosis. 4. Hyperkalemia secondary to acute kidney injury and acidosis. Better. 5. Metabolic acidosis secondary to acute kidney injury and IV fluids. Also on metformin. Improved with bicarb drip and dialysis. 6. Hyponatremia secondary to acute kidney injury, hypervolemic. Improved. 7. Severe sepsis secondary to UTI. Also had recent cellulitis. On antibiotics. 8. Anemia due to acute illness and chronic kidney disease. On Aranesp. 9. Volume overload. Improving with UF and diuresis. 10. Hyperphosphatemia secondary to acute kidney injury. On PhosLo. Phosphorus level 6.8 dated January 24, 2025. Plan: Maintain IV Lasix. Decrease dose to 40 mg IV twice daily Maintain Astorga catheter. Metformin discontinued. Avoid nephrotoxins. Encouraged oral intake. Maintain fluid restriction.
[2025-01-27 11:26] LABS: Glucose,Whole Blood 162 mg/dL (70-110)
--- NOTE | 2025-01-27 11:53 | P.PN ---
Subjective Progress Note Date: 01/27/25 Hospital course: Patient is a 74-year-old male with a history of type 2 diabetes melitis, hypothyroidism, hypertension, atrial fibrillation was brought to the ER via EMS from [facility] for altered mental status. History is obtained by reviewing ER and EMS notes. Patient was recently hospitalized for sepsis secondary to UTI and cellulitis of the left lower extremity and SIMRAN and was discharged on dap tomycin and ceftriaxone for 2 weeks, sent to [facility] for rehabilitation. On arrival to the ED, patient was found to be hypoxic and was put on BiPAP. Initial laboratory evaluation WBC 13.45, hemoglobin 9.5, platelet count 676, sodium 138, potassium 5.8, chloride 92, bicarb 17, BUN 114, creatinine 4.55, glucose 227, magnesium 3.0, calcium 8.5, lactic acid 0.9, ALP 144, AST 20 ALT 20, creatinine kinase 130, NT proBNP 20 840, albumin 3.0. Urinalysis consistent with pyuria, hematuria and proteinuria. Chest x-ray shows no acute cardiopulmonary process. 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 EKG consistent with normal sinus rhythm with ventricular rate of 84 bpm, MT interval 144 ms, QRS duration 102 ms, QTc [address] T wave elevation noted. Normal R wave progression noted. Infectious disease was consulted. Nephrology was consulted. Patient is started on IV daptomycin and ceftriaxone. At the time of interview, patient is currently on BiPAP with a setting of 12/6 with a flow rate of 10 and oxygen at 30%. 01/16/2025: Patient seen and examined at the bedside. Patient continues to be on BiPAP. Patient is awake but not alert and oriented to time place and person. Lab work today shows WBC 7.82, hemoglobin 8.1, hematocrit 26.3, MCV 91.3, platelet count 581, sodium 129, potassium 5.2, BUN 20, creatinine 5.10, hemoglobin A1c 8.5, calcium 7.9, magnesium 3.0. Urine output was 500 mL in 24 hours. Patient to undergo hemodialysis today and tomorrow. 01/17/2025 Patient seen and examined at side. Patient currently undergoing hemodialysis with a goal of 0.5 L. Hemodialysis yesterday with output of 0.5 L. Patient states but more alert and awake today. Follows verbal command. Continues to be on BiPAP. Urine cultures negative. Blood culture preliminary report shows no bacterial growth. WBC 9.06, hemoglobin 8.5, sodium 132, potassium 12.5, BUN 101, creatinine 4.62, calcium 8.1, magnesium 2.9. 01/18/2025 Patient seen and examined at the bedside. Patient lying comfortably on the bed. Currently getting hemodialysis. 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 Slightly more awake alert compared to yesterday. He is following verbal commands. White cell count was 9.8, hemoglobin 9.0, hematocrit 28.5, platelet count 509, sodium 132, potassium 5.1, BUN 38, creatinine 4.68, calcium 8.1, magnesium 2.7. 01/19/2025. Patient seen examined. Patient was undergoing dialysis but could not complete the cycle today because of episodes of bradycardia. Patient is currently on room air. Patient is alert but mental status waxes and wanes. Labs reviewed showed WBC 9.03, hemoglobin 8.5, sodium 135, potassium 4.5, BUN 45, creatinine 4.30 01/20/2025 no new labs from today. Patient seen and examined at the bedside. No acute events overnight. Patient to undergo hemodialysis session today. Patient could not complete the hemodialysis yesterday because of the bradycardic episodes. She is currently on room air and is hemodynamically stable. No new labs from today. 01/21. Patient seen and examined. Patient did tolerate dialysis yesterday but his heart rate is ranging in the low 40s. Discussed with nephrology, they suggested that if patient heart rate continues to be in the 40s patient may not be able to undergo outpatient dialysis 01/22/2025 Patient seen and examined at the bedside. No acute events overnight. Patient currently undergoing hemodialysis with a goal of 1 L. Patient tolerated dialysis yesterday and was bradycardic in his 40s. Lab work from today shows WBC 7.6, hemoglobin 9.0, sodium 126, BUN 80, creatinine 4.3. 01/23/2025 Patient seen and examined at bedside. No acute events overnight. No shortness of breath, chest pain, nausea, vomiting. Patient underwent hemodialysis yesterday with net output of 1.1 L. Patient tolerated hemodialysis well yesterday. Sodium 124, BUN 79, creatinine 3.47, calcium 8.3, magnesium 2.4. Patient to undergo hemodialysis tomorrow. Anticipating discharge within 24 to 48 hours to subacute rehab. 01/24/2025 Patient seen and examined at bedside. No acute events overnight. Patient denies shortness of breath, chest pain, abdominal pain, dysuria. His renal function started to improve. Creatinine today 3.4. Urine output is 1.2 L in 24 hours. Patient is currently on IV Lasix 60 mg twice daily. Possible hemodialysis today. Access is in the right groin area. Rest of the lab work shows sodium 127, potassium 4.5, phosphorus 6.8. Patient continues to be on IV Rocephin and daptomycin for lower extremity wounds. 01/25/2025 Patient seen and examined at the bedside. No acute events overnight. His renal function continues to improve. Creatinine improved to 3.15. Urine output was 1.5 L in 24 hours. Hemodialysis session today. Patient continues to be on IV Lasix 60 mg twice daily. Continues to be on IV Rocephin and daptomycin for lower extremity wounds. Rest of the lab shows WBC 7.0, hemoglobin 9.0, 2127, potassium 4.4, calcium 8.4, magnesium 2.2 01/26/2025 Patient was seen and examined at the bedside. No acute events overnight. Patient undergoing hemodialysis today. Underwent hemodialysis yesterday successfully. The goal is to remove right groin temporary dialysis catheter tod ay and observe the patient over the weekend with a possible placement of permanent dialysis catheter on Wednesday if patient is unsuccessful in regaining renal function. Patient continue to be at baseline mentation. Sodium 127, potassium 4.2, BUN 97, creatinine 3.24, calcium 8.5. Monitor BMP for tomorrow. 01/27/2025 Patient was seen and examined at the bedside. No acute events overnight. Temporary dialysis catheter was removed yesterday after hemodialysis with net amount of 1.6 L. Patient will be observed over the weekend to see if his renal function improves. If not then we will consider permacath placement. Labs from today show improvement in her sodium to 133, creatinine improved to 3.11, rest of the lab is unremarkable. Negative balance in 24 hours is -3.2 L. Repeat BMP and magnesium tomorrow a.m. Physical examination: General: non toxic, no distress, appears at stated age, obese Derm: Multiple chronic lesions on bilateral extremities, legs wrapped Head: atraumatic, normocephalic, symmetric Eyes: EOMI, no lid lag, anicteric sclera, pupils equal round reactive to light ENT: Nose and ears atraumatic, Cardiovascular: S1S2 reg, no murmur 3+ lower extremity pitting edema Lungs: CTA bilateral, diminished at the bases Abdominal: soft, nontender to palpation, no guarding Ext: muscle strength 5 out of 5 in all 4 extremities grossly, no gross muscle atrophy, no contractures, Neuro: CN II-XI grossly intact, no gross focal neuro deficits Psych: Alert, oriented, appropriate affect Assessment/Plan: This is a 74-year-old male with a history of type 2 diabetes melitis, hy pothyroidism, hypertension, atrial fibrillation was brought to the ER via EMS from [facility] for altered mental status. Case was discussed with the Emergency Room provider and decision was made to admit the patient for acute toxic metabolic encephalopathy, SIMRAN, UTI Active: #Sepsis secondary to UTI #SIMRAN secondary to ATN secondary to sepsis #Hypervolemic hyponatremia, improving #Hyperkalemia secondary to SIMRAN, improved #Hypermagnesemia #Acute toxic metabolic encephalopathy secondary to above, at baseline mentation #Bilateral lower extremity cellulitis, on IV antibiotics Continue with IV Rocephin and IV daptomycin Blood culture and urine culture negative ID following, appreciate recommendation Nephrology following, recommendations noted from 01/26 #Acute hypoxic respiratory failure, was on BiPAP, currently on room air #Volume overload, improving #HFpEF, not in exacerbation Continue oxygen supplementation Use of BiPAP as needed Echocardiogram was done on 12/30/2024 showed preserved LV function of 55 to 60% with moderate . Pulmonology following #History of seizure disorder Neurology on board, Continue Depakote 125 mg p.o. twice daily #Anemia of the chronic disease, baseline between 10-11 Hemoglobin at 9 Continue monitor hemoglobin No active bleeding Transfuse with packed RBC if hemoglobin less than 7 #Type 2 diabetes Continue Lantus 20 units subcu daily Continue patient on sliding scale insulin Monitor for hypoglycemia #Generalized weakness PT and OT consulted CODE STATUS: DNI Attestation: I have seen and examined this patient with my resident, assessment and plan discussed with the resident, agree with assessment and plan as written above. Dr. Coronado Objective - Vital Signs Vital signs: Vital Signs Temp 98.0 F 01/27/25 04:00 Pulse 77 01/27/25 04:00 Resp 20 01/27/25 04:00 BP 148/67 01/27/25 04:00 Pulse Ox 94 L 01/27/25 04:00 FiO2 30 01/18/25 04:00 Intake & Output 01/26/25 01/27/25 01/27/25 18:59 06:59 18:59 Intake Total 885 Output Total 4100 Balance -3215 Weight 113.2 kg Intake: IV 75 0.9 75 Intake, IV Titration 50 Amount cefTRIAXone 2 gm In 50 Sodium Chloride 0.9% 50 ml @ 100 mls/hr IVPB Q24HR [facility] Rx#:[id number] Oral 360 Hemodialysis 400 Output: Urine 500 Hemodialysis 2000 Hemodialysis Net Amount 1600 Other: Voiding Method Indwelling Catheter Indwelling Catheter # Bowel Movements 1 2 - Labs CBC & Chem 7: 01/25/25 15:39 01/27/25 08:44 Labs: Abnormal Lab Results - Last 24 Hours (Table) 01/26/25 01/26/25 01/26/25 Range/Units 11:18 16:23 20:05 POC Glucose (mg/dL) 119 H 116 H 122 H (70-110) mg/dL
--- NOTE | 2025-01-27 15:14 | P.PN ---
Subjective Progress Note Date: 01/27/25 Principal diagnosis: Reason for follow-up is left lower extremity cellulitis UTI Patient is a 74-year-old male with a past medical history significant for hypertension hyperlipidemia heart failure atrial fibrillation recent admitted to this facility with extensive left lower extremity cellulitis patient local culture positive for MRSA Proteus along with Enterococcus faecalis for which the patient got midline and was advised a 10-day course of IV Rocephin and daptomycin not been sent to the hospital with hypoxemia and mental status changes did have a positive UA. On today's evaluation that is 01/27/2025, the patient continues to be afebrile, the patient is on room air and breathing comfortably, the Pt denies having any chest pain or cough, the patient denies having any abdominal pain no vomiting or any diarrhea, or pain to the left lower extremity. Patient did have a creatinine of 3.11 no CBC was done today blood and urine has been negative Objective - Vital Signs Vital signs: Vital Signs Temp 97.6 F 01/27/25 12:05 Pulse 58 L 01/27/25 12:05 Resp 18 01/27/25 12:05 BP 171/84 01/27/25 12:05 Pulse Ox 96 01/27/25 12:05 FiO2 30 01/18/25 04:00 Intake & Output 01/26/25 01/27/25 01/27/25 18:59 06:59 18:59 Intake Total 885 236 Output Total 4100 300 Balance -3215 -64 Weight 113.2 kg Intake: IV 75 0.9 75 Intake, IV Titration 50 Amount cefTRIAXone 2 gm In 50 Sodium Chloride 0.9% 50 ml @ 100 mls/hr IVPB Q24HR [facility] Rx#:[id number] Oral 360 236 Hemodialysis 400 Output: Urine 500 300 Hemodialysis 2000 Hemodialysis Net Amount 1600 Other: Voiding Method Indwelling Catheter Indwelling Catheter Indwelling Catheter # Bowel Movements 1 2 1 - Exam GENERAL DESCRIPTION: An elderly male lying in bed in no distress RESPIRATORY SYSTEM: Unlabored breathing , decreased breath sounds at bases HEART: S1 S2 regular rate and rhythm , ABDOMEN: Soft , no tenderness EXTREMITIES: Left lateral leg did have a stage II pressure ulcer surrounding redness has improved Patient did have a bilateral gluteal stage II pressure ulcer but no cellulitis Left big toe did have dried up wound - Labs CBC & Chem 7: 01/25/25 15:39 01/27/25 08:44 Labs: Abnormal Lab Results - Last 24 Hours (Table) 01/26/25 01/26/25 01/27/25 Range/Units 16:23 20:05 08:44 Sodium 133 L (137-145) mmol/L BUN 103 H* (9-20) mg/dL Creatinine 3.11 H (0.66-1.25) mg/dL Glucose 141 H (74-99) mg/dL POC Glucose (mg/dL) 116 H 122 H (70-110) mg/dL 01/27/25 Range/Units 11:24 Sodium (137-145) mmol/L BUN (9-20) mg/dL Creatinine (0.66-1.25) mg/dL Glucose (74-99) mg/dL POC Glucose (mg/dL) 162 H (70-110) mg/dL Assessment and Plan (1) Encephalopathy Current Visit: Yes Status: Acute Code(s): G93.40 - ENCEPHALOPATHY, UNSPECIFIED SNOMED Code(s): 32352606 (2) UTI (urinary tract infection) Current Visit: Yes Status: Acute Code(s): N39.0 - URINARY TRACT INFECTION, SITE NOT SPECIFIED SNOMED Code(s): 87581631 (3) Cellulitis of left leg Current Visit: No Status: Acute Code(s): L03.116 - CELLULITIS OF LEFT LOWER LIMB SNOMED Code(s): 80606554099528235 Plan: 1patient presented to hospital with mental status changes lethargy which is likely multifactorial in this patient noticed to have significant worsening of his kidney function and this patient was getting treatment for his left lower extremity wound and cellulitis which has shown some improvement but not complete resolution of the left lower extremity cellulitis, with recent culture positive for Proteus and MRSA 2-patient also has a positive UA however culture have been negative 3-patient is afebrile white count has normalized, patient did have improvement of the left lower extremity cellulitis and is currently being treated daptomycin and Rocephin along with local wound care with Aquacel silver dressing and Mo wrap Dictation was produced using [employer] dictation software. please excuse any grammatical, word or spelling errors. Time with Patient: Less than 30
[2025-01-27 16:12] LABS: Glucose,Whole Blood 118 mg/dL (70-110)
[2025-01-27 20:05] LABS: Glucose,Whole Blood 126 mg/dL (70-110)
[2025-01-27] MEDS: FUROSEMIDE 10 MG/ML 10 ML VIAL IV SCH (21:15)
[2025-01-28 06:03] LABS: Glucose,Whole Blood 124 mg/dL (70-110)
[2025-01-28 08:16] LABS: African American GFR (CKD) 22 (>60 ml/min/1.73 sqM); Anion Gap 10 mmol/L; Carbon Dioxide 23 mmol/L (22-30); Chloride 99 mmol/L (98-107); Glucose 105 mg/dL (74-99); Magnesium 1.9 mg/dL (1.6-2.3); Non-African American GFR(CKD) 19 (>60 ml/min/1.73 sqM); Potassium 4.3 mmol/L (3.5-5.1); Sodium 132 mmol/L (137-145)
[2025-01-28 08:20] LABS: Blood Urea Nitrogen 107 mg/dL (9-20)
--- NOTE | 2025-01-28 10:37 | P.PN ---
Subjective Patient is seen in follow-up for acute kidney injury on chronic kidney disease. Has Astorga catheter. Nonoliguric. On IV Lasix. Oral intake fair. Last UF treatment was January 26, 2025. Dialysis catheter removed creatinine stable at 3.07 today. Oral intake is better. Vital signs are stable. General: No acute distress. HEENT: On room air. LUNGS: No audible rhonchi or wheezes. HEART: Rate and Rhythm are regular. ABDOMEN: No distention. EXTREMITITES: Chronic changes noted. 1+ edema. Wrapped. Objective - Vital Signs Vital signs: Vital Signs Temp 98.5 F 01/28/25 08:00 Pulse 82 01/28/25 09:14 Resp 20 01/28/25 08:00 BP 154/70 01/28/25 08:00 Pulse Ox 96 01/28/25 08:00 FiO2 30 01/18/25 04:00 Intake & Output 01/27/25 01/28/25 01/28/25 18:59 06:59 18:59 Intake Total 354 240 240 Output Total 725 900 Balance -371 -660 240 Weight 113 kg Intake: Oral 354 240 240 Output: Urine 725 900 Other: Voiding Method Indwelling Catheter Indwelling Catheter # Bowel Movements 1 - Labs CBC & Chem 7: 01/25/25 15:39 01/28/25 07:04 Labs: Abnormal Lab Results - Last 24 Hours (Table) 01/27/25 01/27/25 01/27/25 Range/Units 11:24 16:10 20:02 Sodium (137-145) mmol/L BUN (9-20) mg/dL Creatinine (0.66-1.25) mg/dL Glucose (74-99) mg/dL POC Glucose (mg/dL) 162 H 118 H 126 H (70-110) mg/dL 01/28/25 01/28/25 Range/Units 06:02 07:04 Sodium 132 L (137-145) mmol/L BUN 107 H* (9-20) mg/dL Creatinine 3.07 H (0.66-1.25) mg/dL Glucose 105 H (74-99) mg/dL POC Glucose (mg/dL) 124 H (70-110) mg/dL Assessment and Plan Plan: Assessment: 1. Acute kidney injury secondary to ATN secondary to severe sepsis. Creatinine 5.1 dated January 16, 2025. Started on dialysis January 16, 2025 via femoral catheter. Kidney ultrasound from December 2024 showed no evidence of hydronephrosis. Last dialysis January 22, 2025. He did have UF only treatments as well - last one was 01/26/25. Creatinine stable at 3.07 today. Dialysis catheter discontinued January 26, 2025. 2. Chronic kidney disease stage IIIa with baseline creatinine 1.2-1.4. 3. Chronic diastolic CHF and moderate aortic stenosis. 4. Hyperkalemia secondary to acute kidney injury and acidosis. Better. 5. Metabolic acidosis secondary to acute kidney injury and IV fluids. Also on metformin. Improved with bicarb drip and dialysis. 6. Hyponatremia secondary to acute kidney injury, hypervolemic. Improved. 7. Severe sepsis secondary to UTI. Also had recent cellulitis. On antibiotics. 8. Anemia due to acute illness and chronic kidney disease. On Aranesp. 9. Volume overload. Improving with UF and diuresis. 10. Hyperphosphatemia secondary to acute kidney injury. On PhosLo. Phosphorus level 6.8 dated January 24, 2025. Plan: Maintain IV Lasix. Maintain Astorga catheter. Avoid nephrotoxins. Encouraged oral intake. Maintain fluid restriction. Repeat CXR.
[2025-01-28 11:45] LABS: Glucose,Whole Blood 152 mg/dL (70-110)
--- NOTE | 2025-01-28 14:17 | P.PN ---
Subjective Progress Note Date: 01/28/25 Principal diagnosis: Reason for follow-up is left lower extremity cellulitis UTI Patient is a 74-year-old male with a past medical history significant for hypertension hyperlipidemia heart failure atrial fibrillation recent admitted to this facility with extensive left lower extremity cellulitis patient local culture positive for MRSA Proteus along with Enterococcus faecalis for which the patient got midline and was advised a 10-day course of IV Rocephin and daptomycin not been sent to the hospital with hypoxemia and mental status changes did have a positive UA. On today's evaluation that is 01/28/2025, Patient is afebrile patient is currently on room air and denies having any shortness of breath, the patient denies any chest pain or cough, the patient denies any nausea vomiting did not have any abdominal pain and no diarrhea circumventing some pain to the left lower extremity. Patient did have a creatinine 3.07 no CBC was done today blood and urine has b een negative Objective - Vital Signs Vital signs: Vital Signs Temp 98.3 F 01/28/25 12:00 Pulse 70 01/28/25 12:49 Resp 18 01/28/25 12:00 BP 156/74 01/28/25 12:00 Pulse Ox 96 01/28/25 12:00 FiO2 30 01/18/25 04:00 Intake & Output 01/27/25 01/28/25 01/28/25 18:59 06:59 18:59 Intake Total 354 240 240 Output Total 725 900 0 Balance -371 -660 240 Weight 113 kg Intake: Oral 354 240 240 Output: Urine 725 900 Stool 0 Other: Voiding Method Indwelling Catheter Indwelling Catheter Indwelling Catheter # Bowel Movements 1 - Exam GENERAL DESCRIPTION: An elderly male lying in bed in no distress RESPIRATORY SYSTEM: Unlabored breathing , decreased breath sounds at bases HEART: S1 S2 regular rate and rhythm , ABDOMEN: Soft , no tenderness EXTREMITIES: Left lateral leg did have a stage II pressure ulcer surrounding re dness has improved Patient did have a bilateral gluteal stage II pressure ulcer but no cellulitis Left big toe did have dried up wound - Labs CBC & Chem 7: 01/25/25 15:39 01/28/25 07:04 Labs: Abnormal Lab Results - Last 24 Hours (Table) 01/27/25 01/27/25 01/28/25 Range/Units 16:10 20:02 06:02 Sodium (137-145) mmol/L BUN (9-20) mg/dL Creatinine (0.66-1.25) mg/dL Glucose (74-99) mg/dL POC Glucose (mg/dL) 118 H 126 H 124 H (70-110) mg/dL 01/28/25 01/28/25 Range/Units 07:04 11:39 Sodium 132 L (137-145) mmol/L BUN 107 H* (9-20) mg/dL Creatinine 3.07 H (0.66-1.25) mg/dL Glucose 105 H (74-99) mg/dL POC Glucose (mg/dL) 152 H (70-110) mg/dL Assessment and Plan (1) Encephalopathy Current Visit: Yes Status: Acute Code(s): G93.40 - ENCEPHALOPATHY, UNSPECIFIED SNOMED Code(s): 88135748 (2) UTI (urinary tract infection) Current Visit: Yes Status: Acute Code(s): N39.0 - URINARY TRACT INFECTION, SITE NOT SPECIFIED SNOMED Code(s): 80142482 (3) Cellulitis of left leg Current Visit: No Status: Acute Code(s): L03.116 - CELLULITIS OF LEFT LOWER LIMB SNOMED Code(s): 48563195777293910 Plan: 1patient presented to hospital with mental status changes lethargy which is likely multifactorial in this patient noticed to have significant worsening of his kidney function and this patient was getting treatment for his left lower extremity wound and cellulitis which has shown some improvement but not complete resolution of the left lower extremity cellulitis, with recent culture positive for Proteus and MRSA 2-patient also has a positive UA however culture have been negative 3-patient is afebrile white count has normalized, 4patient did have improvement of the left lower extremity cellulitis and has received adequate daptomycin and Rocephin while patient will not need any antibiotic on discharge continue local care with a dry Aquacel silver dressing Dictation was produced using [employer] dictation software. please excuse any grammatical, word or spelling errors. Time with Patient: Less than 30
--- NOTE | 2025-01-28 14:19 | P.PN ---
Subjective Progress Note Date: 01/28/25 Hospital course: Patient is a 74-year-old male with a history of type 2 diabetes melitis, hypothyroidism, hypertension, atrial fibrillation was brought to the ER via EMS from senior care for altered mental status. History is obtained by reviewing ER and EMS notes. Patient was recently hospitalized for sepsis secondary to UTI and cellulitis of the left lower extremity and SIMRAN and was discharged on dapt omycin and ceftriaxone for 2 weeks, sent to senior care for rehabilitation. On arrival to the ED, patient was found to be hypoxic and was put on BiPAP. Initial laboratory evaluation WBC 13.45, hemoglobin 9.5, platelet count 676, sodium 138, potassium 5.8, chloride 92, bicarb 17, BUN 114, creatinine 4.55, glucose 227, magnesium 3.0, calcium 8.5, lactic acid 0.9, ALP 144, AST 20 ALT 20, creatinine kinase 130, NT proBNP 20 840, albumin 3.0. Urinalysis consistent with pyuria, hematuria and proteinuria. Chest x-ray shows no acute cardiopulmonary process. 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 EKG consistent with normal sinus rhythm with ventricular rate of 84 bpm, CT interval 144 ms, QRS duration 102 ms, QTc [address] T wave elevation noted. Normal R wave progression noted. Infectious disease was consulted. Nephrology was consulted. Patient is started on IV daptomycin and ceftriaxone. At the time of interview, patient is currently on BiPAP with a setting of 12/6 with a flow rate of 10 and oxygen at 30%. 01/16/2025: Patient seen and examined at the bedside. Patient continues to be on BiPAP. Patient is awake but not alert and oriented to time place and person. Lab work today shows WBC 7.82, hemoglobin 8.1, hematocrit 26.3, MCV 91.3, platelet count 581, sodium 129, potassium 5.2, BUN 20, creatinine 5.10, hemoglobin A1c 8.5, calcium 7.9, magnesium 3.0. Urine output was 500 mL in 24 hours. Patient to undergo hemodialysis today and tomorrow. 01/17/2025 Patient seen and examined at side. Patient currently undergoing hemodialysis with a goal of 0.5 L. Hemodialysis yesterday with output of 0.5 L. Patient states but more alert and awake today. Follows verbal command. Continues to be on BiPAP. Urine cultures negative. Blood culture preliminary report shows no bacterial growth. WBC 9.06, hemoglobin 8.5, sodium 132, potassium 12.5, BUN 101, creatinine 4.62, calcium 8.1, magnesium 2.9. 01/18/2025 Patient seen and examined at the bedside. Patient lying comfortably on the bed. Currently getting hemodialysis. Patient is off BiPAP since fisher hand line and is currently on room air. Slightly more awake alert compared to yesterday. He is following verbal commands. White cell count was 9.8, hemoglobin 9.0, hematocrit 28.5, platelet count 509, sodium 132, potassium 5.1, BUN 38, creatinine 4.68, calcium 8.1, magnesium 2.7. 01/19/2025. Patient seen examined. Patient was undergoing dialysis but could not complete the cycle today because of episodes of bradycardia. Patient is currently on room air. Patient is alert but mental status waxes and wanes. Labs reviewed showed WBC 9.03, hemoglobin 8.5, sodium 135, potassium 4.5, BUN 45, creatinine 4.30 01/20/2025 no new labs from today. Patient seen and examined at the bedside. No acute events overnight. Patient to undergo hemodialysis session today. Patient could not complete the hemodialysis yesterday because of the bradycardic episodes. She is currently on room air and is hemodynamically stable. No new labs from today. 01/21. Patient seen and examined. Patient did tolerate dialysis yesterday but his heart rate is ranging in the low 40s. Discussed with nephrology, they suggested that if patient heart rate continues to be in the 40s patient may not be able to undergo outpatient dialysis 01/22/2025 Patient seen and examined at the bedside. No acute events overnight. Patient currently undergoing hemodialysis with a goal of 1 L. Patient tolerated dialysis yesterday and was bradycardic in his 40s. Lab work from today shows WBC 7.6, hemoglobin 9.0, sodium 126, BUN 80, creatinine 4.3. 01/23/2025 Patient seen and examined at bedside. No acute events overnight. No shortness of breath, chest pain, nausea, vomiting. Patient underwent hemodialysis yesterday with net output of 1.1 L. Patient tolerated hemodialysis well yesterday. Sodium 124, BUN 79, creatinine 3.47, calcium 8.3, magnesium 2.4. Patient to undergo hemodialysis tomorrow. Anticipating discharge within 24 to 48 hours to subacute rehab. 01/24/2025 Patient seen and examined at bedside. No acute events overnight. Patient denies shortness of breath, chest pain, abdominal pain, dysuria. His renal function started to improve. Creatinine today 3.4. Urine output is 1.2 L in 24 hours. Patient is currently on IV Lasix 60 mg twice daily. Possible hemodialysis today. Access is in the right groin area. Rest of the lab work shows sodium 127, potassium 4.5, phosphorus 6.8. Patient continues to be on IV Rocephin and daptomycin for lower extremity wounds. 01/25/2025 Patient seen and examined at the bedside. No acute events overnight. His renal function continues to improve. Creatinine improved to 3.15. Urine output was 1.5 L in 24 hours. Hemodialysis session today. Patient continues to be on IV Lasix 60 mg twice daily. Continues to be on IV Rocephin and daptomycin for lower extremity wounds. Rest of the lab shows WBC 7.0, hemoglobin 9.0, 2127, potassium 4.4, calcium 8.4, magnesium 2.2 01/26/2025 Patient was seen and examined at the bedside. No acute events overnight. Patient undergoing hemodialysis today. Underwent hemodialysis yesterday successfully. The goal is to remove right groin temporary dialysis catheter today and observe the patient over the weekend with a possible placement of permanent dialysis catheter on Wednesday if patient is unsuccessful in regaining renal function. Patient continue to be at baseline mentation. Sodium 127, potassium 4.2, BUN 97, creatinine 3.24, calcium 8.5. Monitor BMP for tomorrow. 01/27/2025 Patient was seen and examined at the bedside. No acute events overnight. Temporary dialysis catheter was removed yesterday after hemodialysis with net amount of 1.6 L. Patient will be observed over the weekend to see if his renal function improves. If not then we will consider permacath placement. Labs from today show improvement in her sodium to 133, creatinine improved to 3.11, rest of the lab is unremarkable. Negative balance in 24 hours is -3.2 L. Repeat BMP and magnesium tomorrow a.m. 01/28/2025 Patient eval today on the cardiac stepdown unit. He has been admitted for kidney injury and altered mentation. Plan is to monitor this patient off hemodialysis and pending his renal function may go for permanent catheter placement with continued hemodialysis. Nephrology is following this patient closely. Labs today reveal a sodium level of 132 BUN of 107 creatinine 3.07, magnesium 1.9. Urine culture and blood culture are both final and negative. Patient continues on IV ceftriaxone and IV daptomycin per infectious disease. Continues on IV Lasix 40 mg every 12 hours. Physical examination: General: non toxic, no distress, appears at stated age, obese Derm: Multiple chronic lesions on bilateral extremities, legs wrapped Head: atraumatic, normocephalic, symmetric Eyes: EOMI, no lid lag, anicteric sclera, pupils equal round reactive to light ENT: Nose and ears atraumatic, Cardiovascular: S1S2 reg, no murmur 3+ lower extremity pitting edema Lungs: CTA bilateral, diminished at the bases Abdominal: soft, nontender to palpation, no guarding Ext: muscle strength 5 out of 5 in all 4 extremities grossly, no gross muscle atrophy, no contractures, Neuro: CN II-XI grossly intact, no gross focal neuro deficits Psych: Alert, oriented, appropriate affect Assessment/Plan: This is a 74-year-old male with a history of type 2 diabetes melitis, hypothyroidism, hypertension, atrial fibrillation was brought to the ER via EMS from senior care for altered mental status. Case was discussed with the Emergency Room provider and decision was made to admit the patient for acute toxic metabolic encephalopathy, SIMRAN, UTI Active: #Sepsis secondary to UTI #SIMRAN secondary to ATN secondary to sepsis Patient has been dialyzed per nephrology and currently temporary hemodialysis catheter has been removed and patient was monitored over the weekend with plans to insert a permanent cath if renal function remains elevated #Hypervolemic hyponatremia, improving #Hyperkalemia secondary to SIMRAN, improved #Hypermagnesemia #Acute toxic metabolic encephalopathy secondary to above, at baseline mentation #Bilateral lower extremity cellulitis, on IV antibiotics Continue with IV Rocephin and IV daptomycin Blood culture and urine culture negative ID following, appreciate recommendation Nephrology following, recommendations noted from 01/26 #Acute hypoxic respiratory failure, was on BiPAP, currently on room air #Volume overload, improving #HFpEF, not in exacerbation Patient continues on IV Lasix 40 mg every 12 hours with strict intake and output monitoring Continue oxygen supplementation Use of BiPAP as needed Echocardiogram was done on 12/30/2024 showed preserved LV function of 55 to 60% with moderate . Pulmonology following #History of seizure disorder Neurology on board, Continue Depakote 125 mg p.o. twice daily #Anemia of the chronic disease, baseline between 10-11 Hemoglobin at 9 Continue monitor hemoglobin No active bleeding Transfuse with packed RBC if hemoglobin less than 7 #Type 2 diabetes Continue Lantus 20 units subcu daily Continue patient on sliding scale insulin Monitor for hypoglycemia #Generalized weakness PT and OT consulted CODE STATUS: DNI The impression and plan of care has been dictated by Cynthia Hernandez, Nurse Practitioner as directed. Dr. Ivonne MD I have performed a history and physical examination and medical decision making of this patient, discussed the same with the dictator, and agree with the dictators assessment and plan as written, documented as a scribe. Based on total visit time, I have performed more than 50% of this visit. Objective - Vital Signs Vital signs: Vital Signs Temp 97.9 F 01/28/25 04:00 Pulse 74 01/28/25 04:00 Resp 19 01/28/25 04:00 BP 158/68 01/28/25 04:00 Pulse Ox 94 L 01/28/25 04:00 FiO2 30 01/18/25 04:00 Intake & Output 01/27/25 01/28/25 01/28/25 18:59 06:59 18:59 Intake Total 354 240 Output Total 725 900 Balance -371 -660 Weight 113 kg Intake: Oral 354 240 Output: Urine 725 900 Other: Voiding Method Indwelling Catheter Indwelling Catheter # Bowel Movements 1 - Labs CBC & Chem 7: 01/25/25 15:39 01/28/25 07:04 Labs: Abnormal Lab Results - Last 24 Hours (Table) 01/27/25 01/27/25 01/27/25 Range/Units 08:44 11:24 16:10 Sodium 133 L (137-145) mmol/L BUN 103 H* (9-20) mg/dL Creatinine 3.11 H (0.66-1.25) mg/dL Glucose 141 H (74-99) mg/dL POC Glucose (mg/dL) 162 H 118 H (70-110) mg/dL 01/27/25 01/28/25 01/28/25 Range/Units 20:02 06:02 07:04 Sodium 132 L (137-145) mmol/L BUN 107 H* (9-20) mg/dL Creatinine 3.07 H (0.66-1.25) mg/dL Glucose 105 H (74-99) mg/dL POC Glucose (mg/dL) 126 H 124 H (70-110) mg/dL Assessment and Plan Time with Patient: Less than 30
[2025-01-28 17:02] LABS: Glucose,Whole Blood 118 mg/dL (70-110)
[2025-01-28 20:13] LABS: Glucose,Whole Blood 138 mg/dL (70-110)
[2025-01-29 06:00] LABS: Glucose,Whole Blood 114 mg/dL (70-110)
--- NOTE | 2025-01-29 06:58 | XR ---
EXAMINATION TYPE: XR chest 1V DATE OF EXAM: 01/29/2025 CLINICAL INDICATION: Male, 74 years old with history of sob, progress study. TECHNIQUE: Single AP portable upright view of the chest is obtained. COMPARISON: Chest x-ray from January 24, 2025 FINDINGS: Some chronic parenchymal changes bilaterally are present. No suspicious focal airspace opa city, pleural effusion, or pneumothorax seen bilaterally. Cardiac silhouette size stable and within n ormal limits. Osseous structures are intact. IMPRESSION: No acute pulmonary process currently. [facility], , 01/29/2025 6:56 AM
[2025-01-29 07:48] LABS: Basophils # (A) 0.03 10*3/uL (0.00-0.10); Basophils % (A) 0.4 %; Eosinophils # (A) 0.85 10*3/uL (0.04-0.35); Eosinophils % (A) 12.2 %; HGB 8.6 g/dL (13.0-17.0); Lymphocytes # (A) 1.88 10*3/uL (0.90-5.00); Lymphocytes % (A) 27.1 %; MCH 27.8 pg (27.0-32.0); MCHC 31.9 g/dL (32.0-37.0); MCV 87.4 fL (80.0-97.0); Mean Platelet Volume 8.8 fL (9.5-12.2); Monocytes # (A) 0.76 10*3/uL (0.20-1.00); Neutrophils # (A) 3.38 10*3/uL (1.80-7.70); Neutrophils % (A) 48.7 %; Platelet Count 371 10*3/uL (140-440); RBC 3.09 10*6/uL (4.40-5.60); WBC 6.94 10*3/uL (4.50-10.00)
[2025-01-29 08:47] LABS: African American GFR (CKD) 24 (>60 ml/min/1.73 sqM); Anion Gap 9 mmol/L; Calcium 9.5 mg/dL (8.4-10.2); Carbon Dioxide 25 mmol/L (22-30); Chloride 101 mmol/L (98-107); Glucose 106 mg/dL (74-99); Magnesium 1.9 mg/dL (1.6-2.3); Non-African American GFR(CKD) 21 (>60 ml/min/1.73 sqM); Potassium 4.4 mmol/L (3.5-5.1); Sodium 135 mmol/L (137-145)
[2025-01-29 08:50] LABS: Blood Urea Nitrogen 120 mg/dL (9-20)
--- NOTE | 2025-01-29 09:32 | P.PN ---
Subjective Progress Note Date: 01/29/25 Principal diagnosis: Acute kidney injury need for hemodialysis Patient seen and examined today as a follow-up. Patient is alert and oriented. Denies any complaints at this time. Continued monitoring on renal function. Wednesday his temporary catheter was removed from the right groin following hemodialysis. He continues to make good urine output. Today sodium 135 potassium 4.4 BUN 120 creatinine 2.9. Awaiting recommendations from nephrology. Objective - Vital Signs Vital signs: Vital Signs Temp 98.3 F 01/29/25 04:00 Pulse 82 01/29/25 04:00 Resp 19 01/29/25 04:00 BP 164/80 01/29/25 04:00 Pulse Ox 95 01/29/25 04:00 FiO2 30 01/18/25 04:00 Intake & Output 01/28/25 01/29/25 01/29/25 18:59 06:59 18:59 Intake Total 720 120 120 Output Total 300 700 Balance 420 -580 120 Weight 113.5 kg Intake: Oral 720 120 120 Output: Urine 300 700 Stool 0 Other: Voiding Method Indwelling Catheter Indwelling Catheter # Bowel Movements 2 1 - Exam General appearance: The patient is awake and alert. Obese HET: Head is normocephalic and atraumatic. Neck: Supple. Abdomen: Soft, nontender, nondistended. Extremities: Normal skin color and turgor. Right groin access site without any bleeding, no hematoma. Neurological: Awake and alert to name. - Labs CBC & Chem 7: 01/29/25 07:26 01/29/25 07:26 Labs: Abnormal Lab Results - Last 24 Hours (Table) 01/28/25 01/28/25 01/28/25 Range/Units 11:39 16:55 20:10 RBC (4.40-5.60) 10*6/uL Hgb (13.0-17.0) g/dL Hct (39.6-50.0) % MCHC (32.0-37.0) g/dL MPV (9.5-12.2) fL Eosinophils # (0.04-0.35) 10*3/uL Sodium (137-145) mmol/L BUN (9-20) mg/dL Creatinine (0.66-1.25) mg/dL Glucose (74-99) mg/dL POC Glucose (mg/dL) 152 H 118 H 138 H (70-110) mg/dL 01/29/25 01/29/25 01/29/25 Range/Units 05:59 07:26 07:26 RBC 3.09 L (4.40-5.60) 10*6/uL Hgb 8.6 L (13.0-17.0) g/dL Hct 27.0 L (39.6-50.0) % MCHC 31.9 L (32.0-37.0) g/dL MPV 8.8 L (9.5-12.2) fL Eosinophils # 0.85 H (0.04-0.35) 10*3/uL Sodium 135 L (137-145) mmol/L BUN 120 H* (9-20) mg/dL Creatinine 2.90 H (0.66-1.25) mg/dL Glucose 106 H (74-99) mg/dL POC Glucose (mg/dL) 114 H (70-110) mg/dL Assessment and Plan Assessment: 1. Acute kidney injury requiring renal replacement therapy status post temporary HD catheter placement with improved kidney function 2. Removal of temp HD catheter 3. Chronic kidney disease 4. Acute metabolic encephalopathy 5. Sepsis secondary to UTI and he has cellulitis of lower extremities 6. Hypoxic on BiPAP, resolved Plan: Right groin tunneled HD catheter was removed on Wednesday. Await further recommendations if patient will require permacath for long-term hemodialysis. Thank you for this consultation, we will follow along. The impression and plan of care has been dictated as directed. Dr. Merino I performed a history and examination of this patient, discussed the same with the dictator. I agree with the dictator's note ,documented as a scribe. Any additional findings or plans will be noted.
[2025-01-29 11:10] LABS: Glucose,Whole Blood 130 mg/dL (70-110)
--- NOTE | 2025-01-29 12:10 | P.PN ---
Subjective Patient is seen for follow-up for acute kidney injury and chronic kidney disease. Status post temporary hemodialysis with removal of dialysis catheter on 01/26/2025. Serum creatinine has been staying around 3 mg/dL Maintained on IV Lasix for volume overload. BUN has been slowly increasing and is up to 120 today. Serum creatinine staying at 2.9 to 3 mg/dL. Hemoglobin dropped slightly to 8.6 from 9.0 yesterday. No active GI bleed noted. Shortness of breath has improved Objective - Vital Signs Vital signs: Vital Signs Temp 98.3 F 01/29/25 08:00 Pulse 74 01/29/25 08:00 Resp 20 01/29/25 08:00 BP 171/75 01/29/25 08:00 Pulse Ox 93 L 01/29/25 08:00 FiO2 30 01/18/25 04:00 Intake & Output 01/28/25 01/29/25 01/29/25 18:59 06:59 18:59 Intake Total 720 120 120 Output Total 300 700 0 Balance 420 -580 120 Weight 113.5 kg Intake: Oral 720 120 120 Output: Urine 300 700 Stool 0 0 Other: Voiding Method Indwelling Catheter Indwelling Catheter Indwelling Catheter # Bowel Movements 2 1 - Exam Patient is awake, comfortable, no acute distress Examination of the heart S1 and S2 Examination of the lungs bilateral breath sounds are heard Abdomen is soft nontender Examination of lower extremities shows they are wrapped, edema 1+ - Labs CBC & Chem 7: 01/29/25 07:26 01/29/25 07:26 Labs: Abnormal Lab Results - Last 24 Hours (Table) 01/28/25 01/28/25 01/29/25 Range/Units 16:55 20:10 05:59 RBC (4.40-5.60) 10*6/uL Hgb (13.0-17.0) g/dL Hct (39.6-50.0) % MCHC (32.0-37.0) g/dL MPV (9.5-12.2) fL Eosinophils # (0.04-0.35) 10*3/uL Sodium (137-145) mmol/L BUN (9-20) mg/dL Creatinine (0.66-1.25) mg/dL Glucose (74-99) mg/dL POC Glucose (mg/dL) 118 H 138 H 114 H (70-110) mg/dL 01/29/25 01/29/25 01/29/25 Range/Units 07:26 07:26 11:08 RBC 3.09 L (4.40-5.60) 10*6/uL Hgb 8.6 L (13.0-17.0) g/dL Hct 27.0 L (39.6-50.0) % MCHC 31.9 L (32.0-37.0) g/dL MPV 8.8 L (9.5-12.2) fL Eosinophils # 0.85 H (0.04-0.35) 10*3/uL Sodium 135 L (137-145) mmol/L BUN 120 H* (9-20) mg/dL Creatinine 2.90 H (0.66-1.25) mg/dL Glucose 106 H (74-99) mg/dL POC Glucose (mg/dL) 130 H (70-110) mg/dL Assessment and Plan Assessment: 1. Acute kidney injury secondary to ATN secondary to severe sepsis. Creatinine 5.1 dated January 16, 2025. No obstructive uropathy on ultrasound of the kidneys. Last dialysis January 22, 2025. He did have UF only treatments as well - last one was 01/26/25. Creatinine stable at 2.9 to 3 mg/dL. Dialysis catheter discontinued January 26, 2025. BUN is disproportionately elevated, rule out u nderlying GI bleed 2. Chronic kidney disease stage IIIa with baseline creatinine 1.2-1.4. 3. Chronic diastolic CHF and moderate aortic stenosis. 4. Hyperkalemia secondary to acute kidney injury and acidosis. Better. 5. Metabolic acidosis secondary to acute kidney injury and IV fluids. Also on metformin. Improved with bicarb drip and dialysis. 6. Hyponatremia secondary to acute kidney injury, hypervolemic. 7. Severe sepsis secondary to UTI. Also had recent cellulitis. On antibiotics. 8. Anemia due to acute illness and chronic kidney disease. On Aranesp. 9. Volume overload, improving 10. Hyperphosphatemia secondary to acute kidney injury. On PhosLo Plan: Check stool for occult blood Continue to monitor accurate I's and O's Repeat labs in a.m. Continue with Lasix, decrease to once a day Continue to avoid nephrotoxic agents.
[2025-01-29] MEDS: amLODIPine 10 MG TAB PO SCH (13:24)
--- NOTE | 2025-01-29 15:58 | P.PN ---
Subjective Progress Note Date: 01/29/25 Hospital course: Patient is a 74-year-old male with a history of type 2 diabetes melitis, hypothyroidism, hypertension, atrial fibrillation was brought to the ER via EMS from [facility] for altered mental status. History is obtained by reviewing ER and EMS notes. Patient was recently hospitalized for sepsis secondary to UTI and cellulitis of the left lower extremity and SIMRAN and was discharged on dap tomycin and ceftriaxone for 2 weeks, sent to [facility] for [facility]. On arrival to the ED, patient was found to be hypoxic and was put on BiPAP. Initial laboratory evaluation WBC 13.45, hemoglobin 9.5, platelet count 676, sodium 138, potassium 5.8, chloride 92, bicarb 17, BUN 114, creatinine 4.55, glucose 227, magnesium 3.0, calcium 8.5, lactic acid 0.9, ALP 144, AST 20 ALT 20, creatinine kinase 130, NT proBNP 20 840, albumin 3.0. Urinalysis consistent with pyuria, hematuria and proteinuria. Chest x-ray shows no acute cardiopulmonary process. 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 EKG consistent with normal sinus rhythm with ventricular rate of 84 bpm, [place] interval 144 ms, QRS duration 102 ms, QTc [address] T wave elevation noted. Normal R wave progression noted. Infectious disease was consulted. Nephrology was consulted. Patient is started on IV daptomycin and ceftriaxone. At the time of interview, patient is currently on BiPAP with a setting of 12/6 with a flow rate of 10 and oxygen at 30%. 01/16/2025: Patient seen and examined at the bedside. Patient continues to be on BiPAP. Patient is awake but not alert and oriented to time place and person. Lab work today shows WBC 7.82, hemoglobin 8.1, hematocrit 26.3, MCV 91.3, platelet count 581, sodium 129, potassium 5.2, BUN 20, creatinine 5.10, hemoglobin A1c 8.5, calcium 7.9, magnesium 3.0. Urine output was 500 mL in 24 hours. Patient to undergo hemodialysis today and tomorrow. 01/17/2025 Patient seen and examined at side. Patient currently undergoing hemodialysis with a goal of 0.5 L. Hemodialysis yesterday with output of 0.5 L. Patient states but more alert and awake today. Follows verbal command. Continues to be on BiPAP. Urine cultures negative. Blood culture preliminary report shows no bacterial growth. WBC 9.06, hemoglobin 8.5, sodium 132, potassium 12.5, BUN 101, creatinine 4.62, calcium 8.1, magnesium 2.9. 01/18/2025 Patient seen and examined at the bedside. Patient lying comfortably on the bed. Currently getting hemodialysis. 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 Slightly more awake alert compared to yesterday. He is following verbal commands. White cell count was 9.8, hemoglobin 9.0, hematocrit 28.5, platelet count 509, sodium 132, potassium 5.1, BUN 38, creatinine 4.68, calcium 8.1, magnesium 2.7. 01/19/2025. Patient seen examined. Patient was undergoing dialysis but could not complete the cycle today because of episodes of bradycardia. Patient is currently on room air. Patient is alert but mental status waxes and wanes. Labs reviewed showed WBC 9.03, hemoglobin 8.5, sodium 135, potassium 4.5, BUN 45, creatinine 4.30 01/20/2025 no new labs from today. Patient seen and examined at the bedside. No acute events overnight. Patient to undergo hemodialysis session today. Patient could not complete the hemodialysis yesterday because of the bradycardic episodes. She is currently on room air and is hemodynamically stable. No new labs from today. 01/21. Patient seen and examined. Patient did tolerate dialysis yesterday but his heart rate is ranging in the low 40s. Discussed with nephrology, they suggested that if patient heart rate continues to be in the 40s patient may not be able to undergo outpatient dialysis 01/22/2025 Patient seen and examined at the bedside. No acute events overnight. Patient currently undergoing hemodialysis with a goal of 1 L. Patient tolerated dialysis yesterday and was bradycardic in his 40s. Lab work from today shows WBC 7.6, hemoglobin 9.0, sodium 126, BUN 80, creatinine 4.3. 01/23/2025 Patient seen and examined at bedside. No acute events overnight. No shortness of breath, chest pain, nausea, vomiting. Patient underwent hemodialysis yesterday with net output of 1.1 L. Patient tolerated hemodialysis well yesterday. Sodium 124, BUN 79, creatinine 3.47, calcium 8.3, magnesium 2.4. Patient to undergo hemodialysis tomorrow. Anticipating discharge within 24 to 48 hours to subacute rehab. 01/24/2025 Patient seen and examined at bedside. No acute events overnight. Patient denies shortness of breath, chest pain, abdominal pain, dysuria. His renal function started to improve. Creatinine today 3.4. Urine output is 1.2 L in 24 hours. Patient is currently on IV Lasix 60 mg twice daily. Possible hemodialysis today. Access is in the right groin area. Rest of the lab work shows sodium 127, potassium 4.5, phosphorus 6.8. Patient continues to be on IV Rocephin and daptomycin for lower extremity wounds. 01/25/2025 Patient seen and examined at the bedside. No acute events overnight. His renal function continues to improve. Creatinine improved to 3.15. Urine output was 1.5 L in 24 hours. Hemodialysis session today. Patient continues to be on IV Lasix 60 mg twice daily. Continues to be on IV Rocephin and daptomycin for lower extremity wounds. Rest of the lab shows WBC 7.0, hemoglobin 9.0, 2127, potassium 4.4, calcium 8.4, magnesium 2.2 01/26/2025 Patient was seen and examined at the bedside. No acute events overnight. Patient undergoing hemodialysis today. Underwent hemodialysis yesterday successfully. The goal is to remove right groin temporary dialysis catheter tod ay and observe the patient over the weekend with a possible placement of permanent dialysis catheter on Wednesday if patient is unsuccessful in regaining renal function. Patient continue to be at baseline mentation. Sodium 127, potassium 4.2, BUN 97, creatinine 3.24, calcium 8.5. Monitor BMP for tomorrow. 01/27/2025 Patient was seen and examined at the bedside. No acute events overnight. Temporary dialysis catheter was removed yesterday after hemodialysis with net amount of 1.6 L. Patient will be observed over the weekend to see if his renal function improves. If not then we will consider permacath placement. Labs from today show improvement in her sodium to 133, creatinine improved to 3.11, rest of the lab is unremarkable. Negative balance in 24 hours is -3.2 L. Repeat BMP and magnesium tomorrow a.m. 01/28/2025 Patient eval today on the cardiac stepdown unit. He has been admitted for kidney injury and altered mentation. Plan is to monitor this patient off hemodialysis and pending his renal function may go for permanent catheter placement with continued hemodialysis. Nephrology is following this patient closely. Labs today reveal a sodium level of 132 BUN of 107 creatinine 3.07, magnesium 1.9. Urine culture and blood culture are both final and negative. Patient continues on IV ceftriaxone and IV daptomycin per infectious disease. Continues on IV Lasix 40 mg every 12 hours. 01/29/2025 patient seen and examined at bedside. No acute events overnight. Labs today: WBC 6.9, hemoglobin 8.6, platelet count 371,000, sodium 135, potassium 4.4, bicarb 25, BUN 120, creatinine 2.9, glucose 106, calcium 9.5, magnesium 1.9 Imaging: No acute cardiopulmonary process on chest x-ray today. Review of systems: Pertinent positives and negatives as discussed in HPI, a complete review of systems was performed and all other systems are negative. Physical examination: Vital signs reviewed General: non toxic, no distress, appears at stated age Derm: no unusual rashes/lesions, warm Head: atraumatic, normocephalic, symmetric Eyes: EOMI, anicteric sclera, pupils equal round reactive to light ENT: Nose and ears atraumatic Neck: No cervical lymphadenopathy, trachea midline, supple Mouth: no lip lesion, mucus membranes moist Cardiovascular: S1S2 reg, no murmur Lungs: bibasilar coarse rales, no rhonchi, no rales, no accessory muscle use Abdominal: soft, nontender to palpation, no guarding Ext: muscle strength 5 out of 5 in all 4 extremities grossly, no gross muscle atrophy, no contractures, positive dorsalis pedis pulse bilateral, B/L lower extremity edema, bilateral lower extremity wounds bandages clean and dry Neuro: CN II-XI grossly intact, no gross focal neuro deficits Psych: Alert and oriented x3, appropriate affect and mood Assessment/Plan: #. Sepsis secondary to UTI, improved #. Acute kidney injury 2/2 ATN requiring renal replacement therapy status post temporary HD catheter placement and hemodilaysis, improved #. Acute metabolic encephalopathy secondary to above, improved #. Bilateral lower extremity cellulitis BUN 120, creatinine 2.9 Continue with IV Rocephin and IV daptomycin Continue to monitor electrolytes and renal function Blood culture and urine culture negative ID following, appreciate recommendation Nephrology following, recommendations noted Plans for PermCath placement #. Acute hypoxic respiratory failure on BiPAP, resolved #. Volume overload, improving #. HFpEF, not in exacerbation No acute cardiopulmonary process on chest x-ray today. Continue O2 supplementation Currently on IV Lasix 40 mg every 12 hours Echocardiogram was done on 12/30/2024 showed preserved LV function of 55 to 60% with moderate . Strict I's and O's Pulmonology following #. History of seizure disorder Continue home Depakote 125 mg p.o. twice daily Neurology following #. Anemia of the chronic disease, baseline between - Hemoglobin at 9 Continue monitor hemoglobin No active bleeding Transfuse with packed RBC if hemoglobin less than 7 #. Type 2 diabetes Continue Lantus 20 units subcu daily Continue patient on sliding scale insulin Monitor for hypoglycemia #. Generalized weakness PT and OT consulted SP consulted. MBBS today Resoved: #. Hyperkalemia #. Hypermagnesemia DVT prophylaxis: Heparin subcu every 8 hours CODE STATUS: DNI Lexie Marie MD PGY-1/Weatherization Administrator Dictation was produced using [employer] dictation software. please excuse any grammatical, word or spelling errors. Attestation: I have seen and examined this patient with my resident, assessment and plan discussed with the resident, agree with assessment and plan as written above. Dr. Coronado Objective - Vital Signs Vital signs: Vital Signs Temp 98.3 F 01/29/25 04:00 Pulse 82 01/29/25 04:00 Resp 19 01/29/25 04:00 BP 164/80 01/29/25 04:00 Pulse Ox 95 01/29/25 04:00 FiO2 30 01/18/25 04:00 Intake & Output 01/28/25 01/29/25 01/29/25 18:59 06:59 18:59 Intake Total 720 120 Output Total 300 700 Balance 420 -580 Weight 113.5 kg Intake: Oral 720 120 Output: Urine 300 700 Stool 0 Other: Voiding Method Indwelling Catheter Indwelling Catheter # Bowel Movements 2 - Labs CBC & Chem 7: 01/29/25 07:26 01/29/25 07:26 Labs: Abnormal Lab Results - Last 24 Hours (Table) 01/28/25 01/28/25 01/28/25 Range/Units 07:04 11:39 16:55 RBC (4.40-5.60) 10*6/uL Hgb (13.0-17.0) g/dL Hct (39.6-50.0) % MCHC (32.0-37.0) g/dL MPV (9.5-12.2) fL Eosinophils # (0.04-0.35) 10*3/uL Sodium 132 L (137-145) mmol/L BUN 107 H* (9-20) mg/dL Creatinine 3.07 H (0.66-1.25) mg/dL Glucose 105 H (74-99) mg/dL POC Glucose (mg/dL) 152 H 118 H (70-110) mg/dL 01/28/25 01/29/25 01/29/25 Range/Units 20:10 05:59 07:26 RBC 3.09 L (4.40-5.60) 10*6/uL Hgb 8.6 L (13.0-17.0) g/dL Hct 27.0 L (39.6-50.0) % MCHC 31.9 L (32.0-37.0) g/dL MPV 8.8 L (9.5-12.2) fL Eosinophils # 0.85 H (0.04-0.35) 10*3/uL Sodium (137-145) mmol/L BUN (9-20) mg/dL Creatinine (0.66-1.25) mg/dL Glucose (74-99) mg/dL POC Glucose (mg/dL) 138 H 114 H (70-110) mg/dL
[2025-01-29 16:30] LABS: Glucose,Whole Blood 122 mg/dL (70-110)
[2025-01-29 20:01] LABS: Glucose,Whole Blood 135 mg/dL (70-110)
[2025-01-30 06:11] LABS: Glucose,Whole Blood 102 mg/dL (70-110)
[2025-01-30 07:21] LABS: Basophils # (A) 0.08 10*3/uL (0.00-0.10); Eosinophils # (A) 1.36 10*3/uL (0.04-0.35); Eosinophils % (A) 17.3 %; HCT 27.5 % (39.6-50.0); Lymphocytes # (A) 1.75 10*3/uL (0.90-5.00); Lymphocytes % (A) 22.3 %; MCH 28.4 pg (27.0-32.0); MCHC 32.7 g/dL (32.0-37.0); MCV 86.8 fL (80.0-97.0); Mean Platelet Volume 9.4 fL (9.5-12.2); Monocytes # (A) 0.86 10*3/uL (0.20-1.00); Neutrophils # (A) 3.75 10*3/uL (1.80-7.70); Neutrophils % (A) 47.9 %; Platelet Count 445 10*3/uL (140-440); RBC 3.17 10*6/uL (4.40-5.60); RDW 17.1 % (11.5-14.5); WBC 7.84 10*3/uL (4.50-10.00)
[2025-01-30 08:24] LABS: African American GFR (CKD) 26 (>60 ml/min/1.73 sqM); Anion Gap 11 mmol/L; Calcium 9.6 mg/dL (8.4-10.2); Carbon Dioxide 24 mmol/L (22-30); Chloride 102 mmol/L (98-107); Glucose 91 mg/dL (74-99); Non-African American GFR(CKD) 23 (>60 ml/min/1.73 sqM); Potassium 4.4 mmol/L (3.5-5.1); Sodium 137 mmol/L (137-145)
[2025-01-30 08:36] LABS: Blood Urea Nitrogen 121 mg/dL (9-20)
--- NOTE | 2025-01-30 09:40 | FL ---
Exam Date: 01/29/2025 3:28 PM. Modified barium swallow for dysphagia. Consistencies administered: Various consistency of barium. No images were sent to PACS. Please see speech pathology report. DAP: Not reported [id number] Gycm2 [facility], , 01/30/2025 9:37 AM
[2025-01-30 10:51] VITALS: BMI 32.5
[2025-01-30 11:35] LABS: Glucose,Whole Blood 160 mg/dL (70-110)
--- NOTE | 2025-01-30 11:47 | XR ---
EXAMINATION TYPE: XR chest 1V DATE OF EXAM: 01/30/2025 CLINICAL INDICATION: Male, 74 years old with history of hypoxia, progress study. TECHNIQUE: Single AP portable upright view of the chest is obtained. COMPARISON: Chest x-ray from one day earlier FINDINGS: Cardiac silhouette size is stable and within normal limits. Mild increased markings bilate rally without pleural effusion or pneumothorax seen bilaterally. No new focal airspace opacity. [place] us structures are intact. IMPRESSION: Possible mild fluid overload state. [facility], , 01/30/2025 11:44 AM
--- NOTE | 2025-01-30 14:11 | P.PN ---
Subjective Progress Note Date: 01/30/25 Principal diagnosis: Acute kidney injury need for hemodialysis Patient seen as a follow-up. No acute changes. Nephrology following closely. BUN 121 creatinine 2.66. Good urine output with [place] catheter. Objective - Vital Signs Vital signs: Vital Signs Temp 97.9 F 01/30/25 03:50 Pulse 82 01/30/25 09:55 Resp 18 01/30/25 08:10 BP 148/75 01/30/25 08:10 Pulse Ox 96 01/30/25 09:49 FiO2 30 01/18/25 04:00 Intake & Output 01/29/25 01/30/25 01/30/25 18:59 06:59 18:59 Intake Total 360 100 240 Output Total 750 600 0 Balance -390 -500 240 Weight 112 kg 112 kg Intake: Oral 360 100 240 Output: Urine 750 600 Stool 0 0 Other: Voiding Method Indwelling Catheter Indwelling Catheter Indwelling Catheter # Bowel Movements 1 1 - Exam General appearance: The patient is awake and alert. Obese HET: Head is normocephalic and atraumatic. Neck: Supple. Abdomen: Soft, nontender, nondistended. Extremities: Normal skin color and turgor. Right groin access site without any bleeding, no hematoma. Neurological: Awake and alert to name. - Labs CBC & Chem 7: 01/30/25 06:04 01/30/25 06:04 Labs: Abnormal Lab Results - Last 24 Hours (Table) 01/29/25 01/29/25 01/30/25 Range/Units 16:26 19:58 06:04 RBC 3.17 L (4.40-5.60) 10*6/uL Hgb 9.0 L (13.0-17.0) g/dL Hct 27.5 L (39.6-50.0) % Plt Count 445 H (140-440) 10*3/uL MPV 9.4 L (9.5-12.2) fL Eosinophils # 1.36 H (0.04-0.35) 10*3/uL BUN (9-20) mg/dL Creatinine (0.66-1.25) mg/dL POC Glucose (mg/dL) 122 H 135 H (70-110) mg/dL 01/30/25 01/30/25 Range/Units 06:04 11:34 RBC (4.40-5.60) 10*6/uL Hgb (13.0-17.0) g/dL Hct (39.6-50.0) % Plt Count (140-440) 10*3/uL MPV (9.5-12.2) fL Eosinophils # (0.04-0.35) 10*3/uL BUN 121 H* (9-20) mg/dL Creatinine 2.66 H (0.66-1.25) mg/dL POC Glucose (mg/dL) 160 H (70-110) mg/dL Assessment and Plan Assessment: 1. Acute kidney injury requiring renal replacement therapy status post temporary HD catheter placement with improved kidney function 2. Removal of temp HD catheter 3. Chronic kidney disease 4. Acute metabolic encephalopathy 5. Sepsis secondary to UTI and he has cellulitis of lower extremities 6. Hypoxic on BiPAP, resolved Plan: Right groin tunneled HD catheter was removed on Wednesday. Await further recommendations if patient will require permacath for long-term hemodialysis. Thank you for this consultation, we will follow along. The impression and plan of care has been dictated as directed. Dr. Merino I performed a history and examination of this patient, discussed the same with the dictator. I agree with the dictator's note ,documented as a scribe. Any additional findings or plans will be noted.
--- NOTE | 2025-01-30 15:14 | P.PN ---
Subjective Progress Note Date: 01/29/25 Principal diagnosis: Reason for follow-up is left lower extremity cellulitis UTI Patient is a 74-year-old male with a past medical history significant for hypertension hyperlipidemia heart failure atrial fibrillation recent admitted to this facility with extensive left lower extremity cellulitis patient local culture positive for MRSA Proteus along with Enterococcus faecalis for which the patient got midline and was advised a 10-day course of IV Rocephin and daptomycin not been sent to the hospital with hypoxemia and mental status changes did have a positive UA. On today's evaluation that is 01/29/2025, patient has been afebrile, patient is breathing comfortably and is currently on room air, patient denies having any chest pain and cough, patient denies nausea vomiting or diarrhea and no abdominal pain circumventing some pain in the left lower extremity. Patient did have a white count of 6.94 creatinine is 2.90 Objective - Vital Signs Vital signs: Vital Signs Temp 98.3 F 01/29/25 12:00 Pulse 78 01/29/25 13:58 Resp 20 01/29/25 13:58 BP 171/83 01/29/25 12:00 Pulse Ox 94 L 01/29/25 12:00 FiO2 30 01/18/25 04:00 Intake & Output 01/28/25 01/29/25 01/29/25 18:59 06:59 18:59 Intake Total 720 120 240 Output Total 300 700 550 Balance 420 -580 -310 Weight 113.5 kg Intake: Oral 720 120 240 Output: Urine 300 700 550 Stool 0 0 Other: Voiding Method Indwelling Catheter Indwelling Catheter Indwelling Catheter # Bowel Movements 2 1 - Exam GENERAL DESCRIPTION: An elderly male lying in bed in no distress RESPIRATORY SYSTEM: Unlabored breathing , decreased breath sounds at bases HEART: S1 S2 regular rate and rhythm , ABDOMEN: Soft , no tenderness EXTREMITIES: Left lateral leg did have a stage II pressure ulcer surrounding redness has improved Patient did have a bilateral gluteal stage II pressure ulcer but no cellulitis Left big toe did have dried up wound - Labs CBC & Chem 7: 01/30/25 06:04 01/30/25 06:04 Labs: Abnormal Lab Results - Last 24 Hours (Table) 01/28/25 01/28/25 01/29/25 Range/Units 16:55 20:10 05:59 RBC (4.40-5.60) 10*6/uL Hgb (13.0-17.0) g/dL Hct (39.6-50.0) % MCHC (32.0-37.0) g/dL MPV (9.5-12.2) fL Eosinophils # (0.04-0.35) 10*3/uL Sodium (137-145) mmol/L BUN (9-20) mg/dL Creatinine (0.66-1.25) mg/dL Glucose (74-99) mg/dL POC Glucose (mg/dL) 118 H 138 H 114 H (70-110) mg/dL 01/29/25 01/29/25 01/29/25 Range/Units 07:26 07:26 11:08 RBC 3.09 L (4.40-5.60) 10*6/uL Hgb 8.6 L (13.0-17.0) g/dL Hct 27.0 L (39.6-50.0) % MCHC 31.9 L (32.0-37.0) g/dL MPV 8.8 L (9.5-12.2) fL Eosinophils # 0.85 H (0.04-0.35) 10*3/uL Sodium 135 L (137-145) mmol/L BUN 120 H* (9-20) mg/dL Creatinine 2.90 H (0.66-1.25) mg/dL Glucose 106 H (74-99) mg/dL POC Glucose (mg/dL) 130 H (70-110) mg/dL Assessment and Plan (1) Encephalopathy Current Visit: Yes Status: Acute Code(s): G93.40 - ENCEPHALOPATHY, UNSPECIFIED SNOMED Code(s): 73409123 (2) UTI (urinary tract infection) Current Visit: Yes Status: Acute Code(s): N39.0 - URINARY TRACT INFECTION, SITE NOT SPECIFIED SNOMED Code(s): 97839961 (3) Cellulitis of left leg Current Visit: No Status: Acute Code(s): L03.116 - CELLULITIS OF LEFT LOWER LIMB SNOMED Code(s): 12225106181477179 Plan: 1patient presented to hospital with mental status changes lethargy which is likely multifactorial in this patient noticed to have significant worsening of his kidney function and this patient was getting treatment for his left lower extremity wound and cellulitis which has shown some improvement but not complete resolution of the left lower extremity cellulitis, with recent culture positive for Proteus and MRSA 2-patient also has a positive UA however culture have been negative 3-patient is afebrile white count has normalized, 4patient did have improvement of the left lower extremity cellulitis and has received adequate daptomycin and Rocephin, continue with the dry Aquacel silver dressing and Mo wrap and there will be no need for antibiotic therapy on discharge Dictation was produced using [employer] dictation software. please excuse any grammatical, word or spelling errors. Time with Patient: Less than 30
--- NOTE | 2025-01-30 15:15 | P.PN ---
Subjective Progress Note Date: 01/30/25 Principal diagnosis: Reason for follow-up is left lower extremity cellulitis UTI Patient is a 74-year-old male with a past medical history significant for hypertension hyperlipidemia heart failure atrial fibrillation recent admitted to this facility with extensive left lower extremity cellulitis patient local culture positive for MRSA Proteus along with Enterococcus faecalis for which the patient got midline and was advised a 10-day course of IV Rocephin and daptomycin not been sent to the hospital with hypoxemia and mental status changes did have a positive UA. On today's evaluation that is 01/30/2025, Patient is afebrile this morning patient denies having any chest pain shortness of breath did have occasional dry cough, the patient is currently on room air, patient denies any abdominal pain no diarrhea no nausea no vomiting. No new lab has been obtained today blood culture repeat has been negative, repeat urine is now also growing MRSA in addition to the Proteus Objective - Vital Signs Vital signs: Vital Signs Temp 97.9 F 01/30/25 03:50 Pulse 88 01/30/25 13:01 Resp 18 01/30/25 08:10 BP 148/75 01/30/25 08:10 Pulse Ox 93 L 01/30/25 13:01 FiO2 30 01/18/25 04:00 Intake & Output 01/29/25 01/30/25 01/30/25 18:59 06:59 18:59 Intake Total 360 100 240 Output Total 750 600 0 Balance -390 -500 240 Weight 112 kg 112 kg Intake: Oral 360 100 240 Output: Urine 750 600 Stool 0 0 Other: Voiding Method Indwelling Catheter Indwelling Catheter Indwelling Catheter # Bowel Movements 1 1 - Exam GENERAL DESCRIPTION: An elderly male lying in bed in no distress RESPIRATORY SYSTEM: Unlabored breathing , decreased breath sounds at bases HEART: S1 S2 regular rate and rhythm , ABDOMEN: Soft , no tenderness EXTREMITIES: Left lateral leg did have a stage II pressure ulcer surrounding redness has improved Patient did have a bilateral gluteal stage II pressure ulcer but no cellulitis Left big toe did have dried up wound - Labs CBC & Chem 7: 01/30/25 06:04 01/30/25 06:04 Labs: Abnormal Lab Results - Last 24 Hours (Table) 01/29/25 01/29/25 01/30/25 Range/Units 16:26 19:58 06:04 RBC 3.17 L (4.40-5.60) 10*6/uL Hgb 9.0 L (13.0-17.0) g/dL Hct 27.5 L (39.6-50.0) % Plt Count 445 H (140-440) 10*3/uL MPV 9.4 L (9.5-12.2) fL Eosinophils # 1.36 H (0.04-0.35) 10*3/uL BUN (9-20) mg/dL Creatinine (0.66-1.25) mg/dL POC Glucose (mg/dL) 122 H 135 H (70-110) mg/dL 01/30/25 01/30/25 Range/Units 06:04 11:34 RBC (4.40-5.60) 10*6/uL Hgb (13.0-17.0) g/dL Hct (39.6-50.0) % Plt Count (140-440) 10*3/uL MPV (9.5-12.2) fL Eosinophils # (0.04-0.35) 10*3/uL BUN 121 H* (9-20) mg/dL Creatinine 2.66 H (0.66-1.25) mg/dL POC Glucose (mg/dL) 160 H (70-110) mg/dL Assessment and Plan (1) Encephalopathy Current Visit: Yes Status: Acute Code(s): G93.40 - ENCEPHALOPATHY, UNSPECIFIED SNOMED Code(s): 42063582 (2) UTI (urinary tract infection) Current Visit: Yes Status: Acute Code(s): N39.0 - URINARY TRACT INFECTION, SITE NOT SPECIFIED SNOMED Code(s): 96997622 (3) Cellulitis of left leg Current Visit: No Status: Acute Code(s): L03.116 - CELLULITIS OF LEFT LOWER LIMB SNOMED Code(s): 63199910314898838 Plan: 1patient presented to hospital with mental status changes lethargy which is likely multifactorial in this patient noticed to have significant worsening of his kidney function and this patient was getting treatment for his left lower extremity wound and cellulitis which has shown some improvement but not complete resolution of the left lower extremity cellulitis, with recent culture positive for Proteus and MRSA 2-patient also has a positive UA however culture have been negative 3-patient is afebrile white count has normalized, 4patient did have improvement of the left lower extremity cellulitis and has received adequate daptomycin and Rocephin, will go ahead and discontinue daptomycin and Rocephin continue with the dry Aquacel silver dressing and Mo wrap, will monitor closely off any by therapy at this point Dictation was produced using [employer] dictation software. please excuse any grammatical, word or spelling errors. Time with Patient: Less than 30
--- NOTE | 2025-01-30 16:11 | P.PN ---
Subjective Patient is seen for follow-up for acute kidney injury and chronic kidney disease. Status post temporary hemodialysis with removal of dialysis catheter on 01/26/2025. Serum creatinine has been staying around 3 mg/dL Maintained on IV Lasix for volume overload. BUN has been slowly increasing and is up to 121 today. Serum creatinine decreased to 2.6 today. Hemoglobin stable at 9 g/dL. No active GI bleed noted. Shortness of breath has improved Objective - Vital Signs Vital signs: Vital Signs Temp 97.9 F 01/30/25 03:50 Pulse 86 01/30/25 14:00 Resp 18 01/30/25 14:00 BP 156/77 01/30/25 14:00 Pulse Ox 94 L 01/30/25 14:00 FiO2 30 01/18/25 04:00 Intake & Output 01/29/25 01/30/25 01/30/25 18:59 06:59 18:59 Intake Total 360 100 480 Output Total 750 600 0 Balance -390 -500 480 Weight 112 kg 112 kg Intake: Oral 360 100 480 Output: Urine 750 600 Stool 0 0 Other: Voiding Method Indwelling Catheter Indwelling Catheter Indwelling Catheter # Bowel Movements 1 1 - Exam Patient is awake, comfortable, no acute distress Examination of the heart S1 and S2 Examination of the lungs bilateral breath sounds are heard Abdomen is soft nontender Examination of lower extremities shows they are wrapped, edema 1+ - Labs CBC & Chem 7: 01/30/25 06:04 01/30/25 06:04 Labs: Abnormal Lab Results - Last 24 Hours (Table) 01/29/25 01/29/25 01/30/25 Range/Units 16:26 19:58 06:04 RBC 3.17 L (4.40-5.60) 10*6/uL Hgb 9.0 L (13.0-17.0) g/dL Hct 27.5 L (39.6-50.0) % Plt Count 445 H (140-440) 10*3/uL MPV 9.4 L (9.5-12.2) fL Eosinophils # 1.36 H (0.04-0.35) 10*3/uL BUN (9-20) mg/dL Creatinine (0.66-1.25) mg/dL POC Glucose (mg/dL) 122 H 135 H (70-110) mg/dL 01/30/25 01/30/25 Range/Units 06:04 11:34 RBC (4.40-5.60) 10*6/uL Hgb (13.0-17.0) g/dL Hct (39.6-50.0) % Plt Count (140-440) 10*3/uL MPV (9.5-12.2) fL Eosinophils # (0.04-0.35) 10*3/uL BUN 121 H* (9-20) mg/dL Creatinine 2.66 H (0.66-1.25) mg/dL POC Glucose (mg/dL) 160 H (70-110) mg/dL Assessment and Plan Assessment: 1. Acute kidney injury secondary to ATN secondary to severe sepsis. Creatinine 5.1 dated January 16, 2025. No obstructive uropathy on ultrasound of the kidneys. Last dialysis January 22, 2025. He did have UF only treatments as well - last one was 01/26/25. Creatinine stable at 2.9 to 3 mg/dL, decreased to 2.6 today.. Dialysis catheter discontinued January 26, 2025. BUN is disproportionately elevated, rule out underlying GI bleed. Diuretics will be decreased as well. 2. Chronic kidney disease stage IIIa with baseline creatinine 1.2-1.4. 3. Chronic diastolic CHF and moderate aortic stenosis. 4. Hyperkalemia secondary to acute kidney injury and acidosis. Better. 5. Metabolic acidosis secondary to acute kidney injury and IV fluids. Also on metformin. Improved with bicarb drip and dialysis. 6. Hyponatremia secondary to acute kidney injury, hypervolemic. 7. Severe sepsis secondary to UTI. Also had recent cellulitis. On antibiotics. 8. Anemia due to acute illness and chronic kidney disease. On Aranesp. 9. Volume overload, improving 10. Hyperphosphatemia secondary to acute kidney injury. On PhosLo Plan: Decrease Lasix to once a day Continue to monitor accurate I's and O's Repeat labs in a.m. Continue to avoid nephrotoxic agents.
[2025-01-30 16:42] LABS: Glucose,Whole Blood 176 mg/dL (70-110)
[2025-01-30 20:07] LABS: Glucose,Whole Blood 139 mg/dL (70-110)
[2025-01-31 05:58] LABS: Glucose,Whole Blood 122 mg/dL (70-110)
[2025-01-31] MEDS: FUROSEMIDE 10 MG/ML 10 ML VIAL IV SCH (09:19)
[2025-01-31 10:12] LABS: African American GFR (CKD) 30 (>60 ml/min/1.73 sqM); Anion Gap 13 mmol/L; Calcium 9.8 mg/dL (8.4-10.2); Carbon Dioxide 24 mmol/L (22-30); Chloride 100 mmol/L (98-107); Glucose 111 mg/dL (74-99); Non-African American GFR(CKD) 26 (>60 ml/min/1.73 sqM); Potassium 4.5 mmol/L (3.5-5.1); Sodium 137 mmol/L (137-145)
[2025-01-31 10:44] LABS: Blood Urea Nitrogen 122 mg/dL (9-20)
[2025-01-31 11:12] LABS: Glucose,Whole Blood 154 mg/dL (70-110)
[2025-01-31 11:23] VITALS: RESP 20; TEMP 98
[2025-01-31 11:33] LABS: Basophils # (A) 0.04 10*3/uL (0.00-0.10); Basophils % (A) 0.5 %; Eosinophils # (A) 1.39 10*3/uL (0.04-0.35); Eosinophils % (A) 18.1 %; HCT 28.1 % (39.6-50.0); HGB 9.1 g/dL (13.0-17.0); Lymphocytes # (A) 1.42 10*3/uL (0.90-5.00); Lymphocytes % (A) 18.5 %; MCH 28.5 pg (27.0-32.0); MCHC 32.4 g/dL (32.0-37.0); MCV 88.1 fL (80.0-97.0); Mean Platelet Volume 9.5 fL (9.5-12.2); Monocytes # (A) 0.95 10*3/uL (0.20-1.00); Monocytes % (A) 12.4 %; Neutrophils # (A) 3.85 10*3/uL (1.80-7.70); Neutrophils % (A) 50.1 %; Platelet Count 486 10*3/uL (140-440); RBC 3.19 10*6/uL (4.40-5.60); RDW 17.2 % (11.5-14.5); WBC 7.68 10*3/uL (4.50-10.00)
--- NOTE | 2025-01-31 12:30 | P.PN ---
Subjective Patient is seen for follow-up for acute kidney injury and chronic kidney disease. Status post temporary hemodialysis with removal of dialysis catheter on 01/26/2025. Serum creatinine has improved to 2.3 today Maintained on IV Lasix for volume overload. BUN has been slowly increasing and is up to 122 today. Lasix dose has been decreased. No evidence of active GI bleed Shortness of breath has improved Objective - Vital Signs Vital signs: Vital Signs Temp 98.0 F 01/31/25 11:18 Pulse 75 01/31/25 11:43 Resp 20 01/31/25 11:18 BP 158/84 01/31/25 11:18 Pulse Ox 94 L 01/31/25 11:18 FiO2 30 01/18/25 04:00 Intake & Output 01/30/25 01/31/25 01/31/25 18:59 06:59 18:59 Intake Total 720 260 Output Total 750 600 500 Balance -30 -600 -240 Weight 112 kg 111.8 kg Intake: IV 20 Invasive Line 1 20 Oral 720 240 Output: Urine 750 600 500 Stool 0 Other: Voiding Method Indwelling Catheter Indwelling Catheter Indwelling Catheter # Bowel Movements 1 1 - Exam Patient is awake, comfortable, no acute distress Examination of the heart S1 and S2 Examination of the lungs bilateral breath sounds are heard Abdomen is soft nontender Examination of lower extremities shows they are wrapped, edema 1+, improved - Labs CBC & Chem 7: 01/31/25 10:17 01/31/25 09:08 Labs: Abnormal Lab Results - Last 24 Hours (Table) 01/30/25 01/30/25 01/31/25 Range/Units 16:40 20:05 05:57 RBC (4.40-5.60) 10*6/uL Hgb (13.0-17.0) g/dL Hct (39.6-50.0) % Plt Count (140-440) 10*3/uL Eosinophils # (0.04-0.35) 10*3/uL BUN (9-20) mg/dL Creatinine (0.66-1.25) mg/dL Glucose (74-99) mg/dL POC Glucose (mg/dL) 176 H 139 H 122 H (70-110) mg/dL 01/31/25 01/31/25 01/31/25 Range/Units 09:08 10:17 11:10 RBC 3.19 L (4.40-5.60) 10*6/uL Hgb 9.1 L (13.0-17.0) g/dL Hct 28.1 L (39.6-50.0) % Plt Count 486 H (140-440) 10*3/uL Eosinophils # 1.39 H (0.04-0.35) 10*3/uL BUN 122 H* (9-20) mg/dL Creatinine 2.39 H (0.66-1.25) mg/dL Glucose 111 H (74-99) mg/dL POC Glucose (mg/dL) 154 H (70-110) mg/dL Assessment and Plan Assessment: 1. Acute kidney injury secondary to ATN secondary to severe sepsis. Creatinine 5.1 dated January 16, 2025. No obstructive uropathy on ultrasound of the kidneys. Last dialysis January 22, 2025. He did have UF only treatments as well - last one was 01/26/25. Creatinine stable at 2.9 to 3 mg/dL, decreased to 2.3 today.. Dialysis catheter discontinued January 26, 2025. BUN is disproportionately elevated, no obvious GI bleed. Diuretics will be decreased as well. 2. Chronic kidney disease stage IIIa with baseline creatinine 1.2-1.4. 3. Chronic diastolic CHF and moderate aortic stenosis. 4. Hyperkalemia secondary to acute kidney injury and acidosis. Better. 5. Metabolic acidosis secondary to acute kidney injury and IV fluids. Also on metformin. Improved with bicarb drip and dialysis. 6. Hyponatremia secondary to acute kidney injury, hypervolemic. 7. Severe sepsis secondary to UTI. Also had recent cellulitis. On antibiotics. 8. Anemia due to acute illness and chronic kidney disease. On Aranesp. 9. Volume overload, improving 10. Hyperphosphatemia secondary to acute kidney injury. On PhosLo Plan: Patient can be discharged from nephrology standpoint. Hold Lasix tomorrow and then resume at 40 mg daily. Repeat labs as outpatient in 2 to 3 days Monitor volume status closely.
--- NOTE | 2025-01-31 13:19 | P.DS ---
Providers Date of admission: 01/14/25 12:51 Attending physician: Hao Silva Consults: 01/14/25 10:42 Consult Physician Routine Consulting Provider: Juanpablo Victor Consult Reason/Comments: simran Do you want consulting provider notified?: Yes 01/14/25 12:33 Consult Physician Routine Consulting Provider: Dylan Bennett Consult Reason/Comments: uti Do you want consulting provider notified?: Yes 01/15/25 11:55 Consult Physician Urgent Consulting Provider: Danny Chavez Consult Reason/Comments: acute respiratory failure Do you want consulting provider notified?: Yes 01/16/25 09:11 Consult Physician Urgent Consulting Provider: Kyle Merino Consult Reason/Comments: temporary dialysis catheter placement Do you want consulting provider notified?: Yes 01/16/25 11:18 Consult Physician Urgent Consulting Provider: Imtiaz Snider Consult Reason/Comments: AMS, Hx of Seizure disorder Do you want consulting provider notified?: Yes Primary care physician: China Kaur DO Hospital Course: Hospital Course: Patient is a 74-year-old male with a history of type 2 diabetes mellitus, hypothyroidism, hypertension, atrial fibrillation was brought [facility] the [facility] for altered mental status. History is obtained by reviewing ER and EMS notes. Patient was recently hospitalized for sepsis secondary to UTI and cellulitis of the left lower extremity and SIMRAN and was discharged on daptomycin and ceftriaxone for 2 weeks, sent to jail for rehabilitation. On arrival to the ED, patient was found to be hypoxic and was put on BiPAP. Initial laboratory evaluation WBC 13.45, hemoglobin 9.5, platelet count 676, sodium 138, potassium 5.8, chloride 92, bicarb 17, BUN 114, creatinine 4.55, glucose 227, magnesium 3.0, calcium 8.5, lactic acid 0.9, ALP 144, AST 20 ALT 20, creatinine kinase 130, NT proBNP 20 840, albumin 3.0. Urinalysis consistent with pyuria, hematuria and proteinuria. Chest x-ray shows no acute cardiopulmonary process. 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 EKG consistent with normal sinus rhythm with ventricular rate of 84 bpm, AL interval 144 ms, QRS duration 102 ms, QTc [address] T wave elevation noted. Normal R wave progression noted. Infectious disease was consulted. Nephrology was consulted. Patient is started on IV daptomycin and ceftriaxone. At the time of interview, patient is currently on BiPAP with a setting of 12/6 with a flow rate of 10 and oxygen at 30%. Patient was admitted for the evaluation of acute hypoxic respiratory failure requiring BiPAP,. Sepsis secondary to UTI and SIMRAN requiring renal replacement. IV antibiotics, IV fluids, bicarb drip, blood culture, urine culture were ordered. Infectious disease, neurology and nephrology consulted. Vascular surgery consulted for placement of temporary dialysis cath. PT/OT and Speech therapy consulted. Blood culture preliminary report shows no bacterial growth. Urinary culture showed no growth. Patient eventually off bicarb drip. Patient had 9 sessions of dialysis. Patient had complication of bradycardia during 1 dialysis cycle. Able to tolerate dialysis once again after 1 day. Renal functi on and hypoxia continued to improve. Was able to get off BiPAP and remain on room air. Modified barium swallow done due to concern for aspiration. Found to have moderate impairment and placed on dysphagia diet. Temporary dialysis catheter was removed on 01/28. BUN continued to increase however patient's symptoms improved and remained stable. Infectious disease discontinued antibiotics today. Nephrology cleared patient for discharge back to [facility]. Added Norvasc 10 mg daily due to elevated blood pressures. Converted Lasix IV to p.o. home dose and advised to hold for 1 day and then may resume as prescribed. Patient is advised to follow-up with PCP. And nephrology on outpatient basis. Final Diagnosis: #. Sepsis secondary to UTI, improved #. Acute kidney injury 2/2 ATN requiring renal replacement therapy status post temporary HD catheter placement and hemodialysis, improved #. Acute metabolic encephalopathy secondary to above, improved #. Bilateral lower extremity cellulitis, stable #. Acute hypoxic respiratory failure on BiPAP, resolved #. Volume overload, improved #. HFpEF, not in exacerbation #. History of seizure disorder #. Anemia of the chronic disease, baseline between - #. Type 2 diabetes #. Generalized weakness #. Dysphagia Physical examination: Vital signs reviewed General: non toxic, no distress Derm: no unusual rashes/lesions, warm Head: atraumatic, normocephalic, symmetric Eyes: EOMI, anicteric sclera, pupils equal round reactive to light ENT: Nose and ears atraumatic Neck: No cervical lymphadenopathy, trachea midline, supple Mouth: no lip lesion, mucus membranes moist Cardiovascular: S1S2 reg, no murmur Lungs: CTA bilateral, no rhonchi, no rales, no accessory muscle use Abdominal: soft, nondistended, nontender to palpation, no guarding Ext: muscle strength 5 out of 5 in all 4 extremities grossly, no gross muscle atrophy, no contractures, positive dorsalis pedis pulse bilateral, B/L lower extremity +1 pitting edema, bilateral lower extremity wounds bandages clean and dry Neuro: CN II-XI grossly intact, no gross focal neuro deficits Psych: Alert, oriented, appropriate affect and mood Attestation: I have seen and examined this patient with my resident, assessment and plan discussed with the resident, agree with assessment and plan as written above. Dr. Coronado Patient Condition at Discharge: Stable Plan - Discharge Summary New Discharge Prescriptions: New amLODIPine [Norvasc] 10 mg PO DAILY #30 tab Continue Atorvastatin [Lipitor] 20 mg PO HS@2000 Aspirin [[place] Aspirin EC] 81 mg PO HS Magnesium Oxide [Magox 400] 400 mg PO HS Montelukast [Singulair] 10 mg PO HS@1900 Icy Hot Advanced Relief 7.5% Patch 1 patch TRANSDERM DAILY@0700 Divalproex Sprinkle [Depakote Sprinkle] 125 mg PO BID@0700,1600 DULoxetine HCL [Cymbalta] 60 mg PO DAILY@0700 Naloxone HCl 0.4 mg SQ DIRECTED PRN PRN Reason: suspected opiod overdose Naloxone HCl 4 mg NASAL DIRECTED PRN PRN Reason: suspected opiod overdose Ipratropium-Albuterol Nebulize [Duoneb 0.5 mg-3 mg/3 ml Soln] 3 ml INHALATION RT-Q4H PRN PRN Reason: Shortness Of Breath Or Wheezing 0.9 % Sodium Chloride [Sodium Chloride Flush] 10 ml IV QID INSULIN LISPRO (HumaLOG) [HumaLOG] See Protocol SQ ACHS Heparin Sod (Pork) Lock Flush Intravenous Solution 10unit/Ml 3 ml IV BID@1300,2100 Insulin Glargine,Hum.rec.anlog [Lantus Solostar Pen] 20 units SQ DAILY@0600 Ascorbic Acid [Vitamin C] 500 mg PO DAILY Melatonin 3 mg PO HS Cholecalciferol [Vitamin D3 (25 Mcg = 1000 Iu)] 75 mcg PO DAILY Lactulose 20 gm PO DAILY Ferrous Sulfate [Iron (65 MG Elemental)] 325 mg PO HS Gabapentin [Neurontin] 300 mg PO TID@0700,1300,1900 Levothyroxine Sodium [Synthroid] 88 mcg PO DAILY@0500 Docusate [Colace] 100 mg PO BID Sodium Bicarbonate Tab 650 mg PO BID tab oxyCODONE-APAP 10-325MG [Percocet 10-325 mg] 1 tab PO Q4H #6 tab Acetaminophen [Tylenol Arthritis] 650 mg PO Q6H PRN PRN Reason: Fever And/ Or Pain Heparin Sodium,Porcine (1 ml) [Heparin Sodium] 5,000 unit SQ Q8H metFORMIN HCL [Glucophage] 500 mg PO BID@0700,1600 Fluticasone Propion/Salmeterol [Fluticasone-Salmeterol 250-50] 1 puff INHALATION RT-BID Brimonidine Tartrate [Alphagan P 0.2% Ophth Soln] 1 drops BOTH EYES BID Furosemide [Lasix] 40 mg PO DAILY #30 Discontinued Nystatin 100,000 Unit/gm Powd [Mycostatin Powder] 1 applic TOPICAL BID each cefTRIAXone [Rocephin] 2 gm IVPB Q24H 14 Days #14 each DAPTOmycin [Cubicin] 400 mg IVPB DAILY@1300 Discharge Medication List Aspirin [Yalobusha Aspirin EC] 81 mg PO HS 12/24/18 [History] Atorvastatin [Lipitor] 20 mg PO HS@199912/24/18 [History] Cholecalciferol [Vitamin D3 (25 Mcg = 1000 Iu)] 75 mcg PO DAILY 01/13/23 [History] Ferrous Sulfate [Iron (65 MG Elemental)] 325 mg PO HS 01/13/23 [History] Lactulose 20 gm PO DAILY 01/13/23 [History] Magnesium Oxide [Magox 400] 400 mg PO HS 01/13/23 [History] Melatonin 3 mg PO HS 01/13/23 [History] DULoxetine HCL [Cymbalta] 60 mg PO DAILY@0700 12/29/24 [History] Divalproex Sprinkle [Depakote Sprinkle] 125 mg PO BID@0700,1600 12/29/24 [History] Docusate [Colace] 100 mg PO BID 12/29/24 [History] Gabapentin [Neurontin] 300 mg PO TID@0700,1300,1900 12/29/24 [History] Icy Hot Advanced Relief 7.5% Patch 1 patch TRANSDERM DAILY@0700 12/29/24 [History] Ipratropium-Albuterol Nebulize [Duoneb 0.5 mg-3 mg/3 ml Soln] 3 ml INHALATION RT-Q4H PRN 12/29/24 [History] Levothyroxine Sodium [Synthroid] 88 mcg PO DAILY@0500 12/29/24 [History] Montelukast [Singulair] 10 mg PO HS@1900 12/29/24 [History] Naloxone HCl 0.4 mg SQ DIRECTED PRN 12/29/24 [History] Naloxone HCl 4 mg NASAL DIRECTED PRN 12/29/24 [History] Sodium Bicarbonate Tab 650 mg PO BID tab 01/09/25 [Rx] oxyCODONE-APAP 10-325MG [Percocet 10-325 mg] 1 tab PO Q4H #6 tab 01/09/25 [Rx] 0.9 % Sodium Chloride [Sodium Chloride Flush] 10 ml IV QID 01/14/25 [History] Acetaminophen [Tylenol Arthritis] 650 mg PO Q6H PRN 01/14/25 [History] Ascorbic Acid [Vitamin C] 500 mg PO DAILY 01/14/25 [History] Brimonidine Tartrate [Alphagan P 0.2% Ophth Soln] 1 drops BOTH EYES BID 01/14/25 [History] Fluticasone Propion/Salmeterol [Fluticasone-Salmeterol 250-50] 1 puff INHALATION RT-BID 01/14/25 [History] Heparin Sod (Pork) Lock Flush Intravenous Solution 10unit/Ml 3 ml IV BID@1300,2100 01/14/25 [History] Heparin Sodium,Porcine (1 ml) [Heparin Sodium] 5,000 unit SQ Q8H 01/14/25 [History] INSULIN LISPRO (HumaLOG) [HumaLOG] See Protocol SQ ACHS 01/14/25 [History] Insulin Glargine,Hum.rec.anlog [Lantus Solostar Pen] 20 units SQ DAILY@0600 01/14/25 [History] metFORMIN HCL [Glucophage] 500 mg PO BID@0700,1600 01/14/25 [History] Furosemide [Lasix] 40 mg PO DAILY #30 01/31/25 [Rx] amLODIPine [Norvasc] 10 mg PO DAILY #30 tab 01/31/25 [Rx] Follow up Appointment(s)/Referral(s): Mary Ann Rodriguez MD [STAFF PHYSICIAN] - 1 Week China Kaur DO [Primary Care Provider] - 1-2 days Patient Instructions/Handouts: Acute Kidney Injury (DC), Urinary Tract Infect ion in Men (DC) Discharge Disposition: TRANSFER TO SNF/ECF
[2025-01-31 16:45] LABS: Glucose,Whole Blood 141 mg/dL (70-110)
[2025-01-31 17:14] VITALS: BP 160/75; PULSE 99
--- NOTE | 2025-02-02 13:01 | P.PN ---
Subjective Progress Note Date: 01/31/25 Principal diagnosis: Reason for follow-up is left lower extremity cellulitis UTI Patient is a 74-year-old male with a past medical history significant for hypertension hyperlipidemia heart failure atrial fibrillation recent admitted to this facility with extensive left lower extremity cellulitis patient local culture positive for MRSA Proteus along with Enterococcus faecalis for which the patient got midline and was advised a 10-day course of IV Rocephin and daptomycin not been sent to the hospital with hypoxemia and mental status changes did have a positive UA. On today's evaluation that is 01/31/2025,the patient denies any fever or any chills, patient is breathing comfortably on room air, the patient denies chest pain shortness of breath and no significant cough, patient denies abdominal pain, no nausea vomiting or diarrhea. Denies pain to the left lower extremity. Patient white count 7.68 creatinine is 2.39 Objective - Vital Signs Vital signs: Vital Signs Temp 98.0 F 01/31/25 11:18 Pulse 75 01/31/25 11:43 Resp 20 01/31/25 11:18 BP 158/84 01/31/25 11:18 Pulse Ox 94 L 01/31/25 11:18 FiO2 30 01/18/25 04:00 Intake & Output 01/30/25 01/31/25 01/31/25 18:59 06:59 18:59 Intake Total 720 500 Output Total 750 600 500 Balance -30 -600 0 Weight 112 kg 111.8 kg Intake: IV 20 Invasive Line 1 20 Oral 720 480 Output: Urine 750 600 500 Stool 0 Other: Voiding Method Indwelling Catheter Indwelling Catheter Indwelling Catheter # Bowel Movements 1 1 - Exam GENERAL DESCRIPTION: An elderly male lying in bed in no distress RESPIRATORY SYSTEM: Unlabored breathing , decreased breath sounds at bases HEART: S1 S2 regular rate and rhythm , ABDOMEN: Soft , no tenderness EXTREMITIES: Left lateral leg did have a stage II pressure ulcer surrounding redness has improved Patient did have a bilateral gluteal stage II pressure ulcer but no cellulitis Left big toe did have dried up wound - Labs CBC & Chem 7: 01/31/25 10:17 01/31/25 09:08 Labs: Abnormal Lab Results - Last 24 Hours (Table) 01/30/25 01/30/25 01/31/25 Range/Units 16:40 20:05 05:57 RBC (4.40-5.60) 10*6/uL Hgb (13.0-17.0) g/dL Hct (39.6-50.0) % Plt Count (140-440) 10*3/uL Eosinophils # (0.04-0.35) 10*3/uL BUN (9-20) mg/dL Creatinine (0.66-1.25) mg/dL Glucose (74-99) mg/dL POC Glucose (mg/dL) 176 H 139 H 122 H (70-110) mg/dL 01/31/25 01/31/25 01/31/25 Range/Units 09:08 10:17 11:10 RBC 3.19 L (4.40-5.60) 10*6/uL Hgb 9.1 L (13.0-17.0) g/dL Hct 28.1 L (39.6-50.0) % Plt Count 486 H (140-440) 10*3/uL Eosinophils # 1.39 H (0.04-0.35) 10*3/uL BUN 122 H* (9-20) mg/dL Creatinine 2.39 H (0.66-1.25) mg/dL Glucose 111 H (74-99) mg/dL POC Glucose (mg/dL) 154 H (70-110) mg/dL Assessment and Plan (1) Encephalopathy Status: Acute Code(s): G93.40 - ENCEPHALOPATHY, UNSPECIFIED SNOMED Code(s): 29644323 (2) UTI (urinary tract infection) Status: Acute Code(s): N39.0 - URINARY TRACT INFECTION, SITE NOT SPECIFIED SNOMED Code(s): 56186445 (3) Cellulitis of left leg Status: Acute Code(s): L03.116 - CELLULITIS OF LEFT LOWER LIMB SNOMED Code(s): 32478112027997526 Plan: 1patient presented to hospital with mental status changes lethargy which is likely multifactorial in this patient noticed to have significant worsening of his kidney function and this patient was getting treatment for his left lower extremity wound and cellulitis which has shown some improvement but not complete resolution of the left lower extremity cellulitis, with recent culture positive for Proteus and MRSA 2-patient also has a positive UA however culture have been negative 3-patient is afebrile white count has normalized,patient did have improvement of the left lower extremity cellulitis and has received adequate daptomycin and Rocephin, recommending no antibiotic on discharge continue local wound care to the leg wound as ordered Dictation was produced using [employer] dictation software. please excuse any grammatical, word or spelling errors. Time with Patient: Less than 30
== END 2025-01-31 18:05 | DRG 871 ==
LOC: EC 09:45 → 3SCARD 12:51
PROVIDERS: ADMIT Hospitalist; ATTEND Hospitalist
PROC: 5A09557 Assistance with Respiratory Ventilation, Greater than 96 Consecutive Hours, Continuous Positive Airway Pressure (ICD-10-PCS; 2025-01-14)
PROC: 5A1D70Z Performance of Urinary Filtration, Intermittent, Less than 6 Hours Per Day (ICD-10-PCS; principal; 2025-01-16)
PROC: 02HV33Z Insertion of Infusion Device into Superior Vena Cava, Percutaneous Approach (ICD-10-PCS; 2025-01-16)
DX: A41.9 Sepsis, unspecified organism (principal); G92.8 Other toxic encephalopathy; L89.893 Pressure ulcer of other site, stage 3; G93.41 Metabolic encephalopathy; N17.0 Acute kidney failure with tubular necrosis; J96.01 Acute respiratory failure with hypoxia; G93.1 Anoxic brain damage, not elsewhere classified; I13.0 Hypertensive heart and chronic kidney disease with heart failure and stage 1 through stage 4 chronic kidney disease, or unspecified chronic kidney disease; E11.42 Type 2 diabetes mellitus with diabetic polyneuropathy; G40.909 Epilepsy, unspecified, not intractable, without status epilepticus; N18.31 Chronic kidney disease, stage 3a; E03.9 Hypothyroidism, unspecified; Z68.33 Body mass index [BMI] 33.0-33.9, adult; D63.1 Anemia in chronic kidney disease; I35.0 Nonrheumatic aortic (valve) stenosis; I50.32 Chronic diastolic (congestive) heart failure; E87.4 Mixed disorder of acid-base balance; E87.1 Hypo-osmolality and hyponatremia; L03.115 Cellulitis of right lower limb; L03.116 Cellulitis of left lower limb; N39.0 Urinary tract infection, site not specified; I48.0 Paroxysmal atrial fibrillation; R65.20 Severe sepsis without septic shock; L89.312 Pressure ulcer of right buttock, stage 2; L89.322 Pressure ulcer of left buttock, stage 2; E11.22 Type 2 diabetes mellitus with diabetic chronic kidney disease; Z79.4 Long term (current) use of insulin; L89.892 Pressure ulcer of other site, stage 2; Z66 Do not resuscitate; R31.9 Hematuria, unspecified; R00.1 Bradycardia, unspecified; Z68.32 Body mass index [BMI] 32.0-32.9, adult; Z79.890 Hormone replacement therapy; E86.1 Hypovolemia; I49.3 Ventricular premature depolarization; E78.5 Hyperlipidemia, unspecified; E66.9 Obesity, unspecified; D64.89 Other specified anemias; E83.39 Other disorders of phosphorus metabolism; E83.41 Hypermagnesemia; E87.5 Hyperkalemia; I25.2 Old myocardial infarction; R13.10 Dysphagia, unspecified; Z79.82 Long term (current) use of aspirin; Z79.84 Long term (current) use of oral hypoglycemic drugs; Z79.899 Other long term (current) drug therapy; Z86.14 Personal history of Methicillin resistant Staphylococcus aureus infection; Z86.73 Personal history of transient ischemic attack (TIA), and cerebral infarction without residual deficits; Z79.51 Long term (current) use of inhaled steroids; Z79.01 Long term (current) use of anticoagulants
CPT/HCPCS: 36415; 36600; 70450; 71045; 74230; 80048; 80053; 81001; 82140; 82550; 82803; 82805; 83036; 83605; 83735; 83880; 84100; 84132; 84484; 85025; 85610; 85730; 86706; 87040; 87086; 87340; 90935; 93005; 94640; 94660; 94760; 96361; 96365; 96366; 96375; 99291